=== PATIENT | male | born 1960 | race Caucasian/White ===

== ENCOUNTER 2019-03-29 18:19 | Inpatient (IN) | payer OTHER ==
[2019-03-29] MEDS ORDERED: SODIUM CHLORIDE 0.9% 1,000 ML IV STA ×2 (18:37→20:06)
--- NOTE | 2019-03-29 18:50 | ED ---
General Adult HPI - General Chief complaint: Weakness Stated complaint: Hypotension Time Seen by Provider: 03/29/19 18:37 Source: EMS Mode of arrival: EMS Limitations: no limitations - History of Present Illness Initial comments: Dictation was produced using [employer] dictation software. please excuse any grammatical, word or spelling errors. Chief Complaint: 59-year-old male brought in by EMS for altered mental status. History of Present Illness: 59-year-old male is brought in by EMS for altered mental status. EMS was allegedly called by a bystander. He was found in somebody's yard. EMS was on scene. They performed an EKG with concerns of infarction. Patient admitted to us that he is suicidal. He drank a whole bottle of mouthwash. Patient allegedly fell and hit the back of his head as well. Patient is a poor historian at this time. According to EMS patient was hypotensive. EMS transmitted EKG. Patient denies any chest pain at this time. Denies any neurologic deficits. Patient states he was trying to harm himself because he is afraid of being homeless at his age. PHYSICAL EXAM: General Impression: Alert and oriented x2/4, not in acute distress HEENT: Normocephalic atraumatic, extra-ocular movements intact, pupils equal and reactive to light bilaterally, dry mucous membranes, pupils not pinpoint, pale, Cardiovascular: Heart regular rate and rhythm, S1&S2 audible, no murmurs, rubs or gallops Chest: Lungs clear to auscultation bilaterally, no rhonchi, no wheeze, no rales Abdomen: Bowel sounds present, abdomen soft, non-tender, non-distended, no organomegaly Musculoskeletal: Pulses present and equal in all extremities, no peripheral edema Motor: no focal deficits noted Neurological: CN II-XII grossly intact, no focal motor or sensory deficits noted Skin: Intact with no visualized rashes Psych: Normal affect and mood ED course: 59-year-old male presents with altered mental status after being found down in a yard. As upon arrival shows blood pressure 73/49. Multiple EKGs were performed. No clear signs of STEMI at this time. No old EKG for comparison. EKG shows right bundle branch block. Laboratory evaluation obtained. Leukocytosis of 16.3 likely secondary to stress. Metabolic panel shows elevated renal markers, sodium 136, glucose 127- like acidosis of 4.8. Salicylates, Tylenol and serum alcohol was obtained. Alcohol 198. Negative aspirin and Tylenol. Patient's osmolalities 335. Osmole gap is - 5. No concern for toxic alcohol ingestion. Patient responds to fluids. Repeat blood pressure was obtained after 2 boluses of fluids with measurement of 111/71. Patient reevaluated at bedside. Has no complaints. Denies any chest pain at this time. Computed tomography scan of the head and C- spine was obtained showing no acute intracranial abnormalities. Chest x-ray is nonacute. Patient's lactic acidosis is likely secondary to dehydration. Patient's well-appearing at this time. He will be admitted with psychiatry, cardiology consultation. - Related Data Home Medications Medication Instructions Recorded Confirmed Cardizem(Unknown Dose) 1 tab PO DAILY 03/29/19 03/29/19 Allergies Allergy/AdvReac Type Severity Reaction Status Date / Time No Known Allergies Allergy Verified 03/29/19 19:07 Review of Systems ROS Statement: Those systems with pertinent positive or pertinent negative responses have been documented in the HPI. ROS Other: All systems not noted in ROS Statement are negative. Past Medical History Past Medical History: Hypertension History of Any Multi-Drug Resistant Organisms: None Reported Past Surgical History: Unable to Obtain Smoking Status: Current every day smoker Past Alcohol Use History: Abuse, Heavy General Exam Limitations: no limitations Course Vital Signs 03/29/19 03/29/19 03/29/19 18:39 18:57 18:58 Temperature 97.4 F L Pulse Rate 82 71 71 Respiratory 24 18 22 Rate Blood Pressure 73/49 100/60 98/67 O2 Sat by Pulse 94 L 96 90 L Oximetry 03/29/19 03/29/19 03/29/19 19:00 19:30 20:00 Temperature Pulse Rate 84 70 85 Respiratory 17 20 18 Rate Blood Pressure 80/41 93/61 98/58 O2 Sat by Pulse 91 L 92 L Oximetry 03/29/19 20:28 Temperature Pulse Rate 69 Respiratory 18 Rate Blood Pressure 111/71 O2 Sat by Pulse 95 Oximetry Medical Decision Making - Lab Data Result diagrams: 03/29/19 18:30 03/29/19 18:30 Lab Results 03/29/19 03/29/19 03/29/19 Range/Units 18:30 18:30 18:30 WBC 16.3 H (3.8-10.6) k/uL RBC 5.33 (4.30-5.90) m/uL Hgb 15.6 (13.0-17.5) gm/dL Hct 52.1 (39.0-53.0) % MCV 97.9 (80.0-100.0) fL MCH 29.3 (25.0-35.0) pg MCHC 29.9 L (31.0-37.0) g/dL RDW 15.2 (11.5-15.5) % Plt Count 229 (150-450) k/uL Neutrophils % 85 % Lymphocytes % 9 % Monocytes % 4 % Eosinophils % 1 % Basophils % 1 % Neutrophils # 13.8 H (1.3-7.7) k/uL Lymphocytes # 1.4 (1.0-4.8) k/uL Monocytes # 0.7 (0-1.0) k/uL Eosinophils # 0.1 (0-0.7) k/uL Basophils # 0.1 (0-0.2) k/uL Sodium 136 L (137-145) mmol/L Potassium 4.2 (3.5-5.1) mmol/L Chloride 100 (98-107) mmol/L Carbon Dioxide 23 (22-30) mmol/L Anion Gap 13 mmol/L BUN 21 H (9-20) mg/dL Creatinine 1.91 H (0.66-1.25) mg/dL Est GFR (CKD-EPI)AfAm 43 (>60 ml/min/1.73 sqM) Est GFR (CKD-EPI)NonAf 38 (>60 ml/min/1.73 sqM) Glucose 127 H (74-99) mg/dL Osmolality 335 H* (280-301) mosm/kg Plasma Lactic Acid Eldon 4.8 H* (0.7-2.0) mmol/L Calcium 9.0 (8.4-10.2) mg/dL Total Bilirubin 1.0 (0.2-1.3) mg/dL Conjugated Bilirubin 0.0 (0.0-0.3) mg/dL Unconjugated Bilirubin 0.7 (0.0-1.1) mg/dL Delta Bilirubin 0.3 H (0.0-0.2) mg/dL AST 32 (17-59) U/L ALT 19 L (21-72) U/L Alkaline Phosphatase 66 (38-126) U/L Troponin I (0.000-0.034) ng/mL Total Protein 5.9 L (6.3-8.2) g/dL Albumin 3.6 (3.5-5.0) g/dL Lipase 161 (23-300) U/L Salicylates 1.0 mg/dL Acetaminophen <10.0 ug/mL Serum Alcohol 198 mg/dL 03/29/19 Range/Units 18:30 WBC (3.8-10.6) k/uL RBC (4.30-5.90) m/uL Hgb (13.0-17.5) gm/dL Hct (39.0-53.0) % MCV (80.0-100.0) fL MCH (25.0-35.0) pg MCHC (31.0-37.0) g/dL RDW (11.5-15.5) % Plt Count (150-450) k/uL Neutrophils % % Lymphocytes % % Monocytes % % Eosinophils % % Basophils % % Neutrophils # (1.3-7.7) k/uL Lymphocytes # (1.0-4.8) k/uL Monocytes # (0-1.0) k/uL Eosinophils # (0-0.7) k/uL Basophils # (0-0.2) k/uL Sodium (137-145) mmol/L Potassium (3.5-5.1) mmol/L Chloride (98-107) mmol/L Carbon Dioxide (22-30) mmol/L Anion Gap mmol/L BUN (9-20) mg/dL Creatinine (0.66-1.25) mg/dL Est GFR (CKD-EPI)AfAm (>60 ml/min/1.73 sqM) Est GFR (CKD-EPI)NonAf (>60 ml/min/1.73 sqM) Glucose (74-99) mg/dL Osmolality (280-301) mosm/kg Plasma Lactic Acid Eldon (0.7-2.0) mmol/L Calcium (8.4-10.2) mg/dL Total Bilirubin (0.2-1.3) mg/dL Conjugated Bilirubin (0.0-0.3) mg/dL Unconjugated Bilirubin (0.0-1.1) mg/dL Delta Bilirubin (0.0-0.2) mg/dL AST (17-59) U/L ALT (21-72) U/L Alkaline Phosphatase (38-126) U/L Troponin I 0.020 (0.000-0.034) ng/mL Total Protein (6.3-8.2) g/dL Albumin (3.5-5.0) g/dL Lipase (23-300) U/L Salicylates mg/dL Acetaminophen ug/mL Serum Alcohol mg/dL Disposition Clinical Impression: Suicidal behavior, Chest pain, Hypotension Disposition: ADMITTED IP TO THIS HOSP Condition: Fair Referrals: None,Stated [Primary Care Provider] - 1-2 days Decision Time: 21:27
[2019-03-29 18:52] LABS: Basophils # (A) 0.1 k/uL (0-0.2); Basophils % (A) 1 %; Eosinophils # (A) 0.1 k/uL (0-0.7); Eosinophils % (A) 1 %; HCT 52.1 % (39.0-53.0); HGB 15.6 gm/dL (13.0-17.5); Lymphocytes # (A) 1.4 k/uL (1.0-4.8); Lymphocytes % (A) 9 %; MCH 29.3 pg (25.0-35.0); MCHC 29.9 g/dL (31.0-37.0); MCV 97.9 fL (80.0-100.0); Monocytes # (A) 0.7 k/uL (0-1.0); Monocytes % (A) 4 %; Neutrophils # (A) 13.8 k/uL (1.3-7.7); Neutrophils % (A) 85 %; Platelet Count 229 k/uL (150-450); RBC 5.33 m/uL (4.30-5.90); RDW 15.2 % (11.5-15.5); WBC 16.3 k/uL (3.8-10.6)
[2019-03-29 19:02] LABS: ALT 19 U/L (21-72); AST 32 U/L (17-59); Acetaminophen <10.0 ug/mL; African American GFR (CKD) 43 (>60 ml/min/1.73 sqM); Albumin 3.6 g/dL (3.5-5.0); Alkaline Phosphatase 66 U/L (38-126); Anion Gap 13 mmol/L; Bilirubin, Delta 0.3 mg/dL (0.0-0.2); Bilirubin,Unconjugated 0.7 mg/dL (0.0-1.1); Blood Urea Nitrogen 21 mg/dL (9-20); Carbon Dioxide 23 mmol/L (22-30); Chloride 100 mmol/L (98-107); Glucose 127 mg/dL (74-99); Potassium 4.2 mmol/L (3.5-5.1); Sodium 136 mmol/L (137-145); Total Protein 5.9 g/dL (6.3-8.2)
--- NOTE | 2019-03-29 19:02 | XR ---
EXAMINATION TYPE: XR chest 1V portable DATE OF EXAM: 03/29/2019 COMPARISON: NONE HISTORY: Overdose TECHNIQUE: Single frontal view of the chest is obtained. FINDINGS: There is no heart failure nor confluent pneumonic infiltrate. There is minimal atelectasis left lung base. Right lung is clear. There are no hilar masses. There are chest leads. IMPRESSION: Mild subsegmental atelectasis left lower lobe. Normal heart.
[2019-03-29 19:05] LABS: Alcohol 198 mg/dL
--- NOTE | 2019-03-29 20:24 | CT ---
EXAMINATION TYPE: CT brain jamari holder DATE OF EXAM: 03/29/2019 COMPARISON: None HISTORY: ETOH with fall CT DLP: 1299.6 mGycm Automated exposure control for dose reduction was used. TECHNIQUE: CT scan of the head and cervical spine are performed without contrast. FINDINGS: There is mild cerebral cortical atrophy. There is no mass effect nor midline shift. There is no sign of intracranial hemorrhage. The calvarium is intact. There is straightening of the cervical spine. There is degenerative spur formation anteriorly in the mid and lower cervical spine. The facet joints are intact. Skull base is intact. There is mucus reten tion cyst in the maxillary sinuses. IMPRESSION: Mild atrophy. No acute intracranial abnormality. Mild spondylotic changes in the cervical spine. No fracture.
[2019-03-29] MEDS ORDERED: ASPIRIN 81 MG PO STA (21:22)
[2019-03-29] MEDS ORDERED: NITROGLYCERIN SL TABS 0.4 MG TAB SUBLINGUAL PRN (21:22)
[2019-03-29] MEDS ORDERED: THIAMINE 100 MG/ML 2 ML VIAL IM STA (22:41)
[2019-03-29 23:21] VITALS: BMI 29.4
[2019-03-29] MEDS: THIAMINE 100 MG TAB PO SCH (23:30)
[2019-03-30] MEDS: NICOTINE 14MG/24HR PATCH TRANSDERM SCH ×2 (00:08→08:12)
[2019-03-30 02:36] LABS: Cholesterol 121 mg/dL (<200); HDL Cholesterol 54 mg/dL (40-60); LDL Cholesterol,Calculated 43 mg/dL (0-99); Triglycerides 118 mg/dL (<150)
[2019-03-30] MEDS: THIAMINE 100 MG TAB PO SCH ×2 (04:32→17:28)
[2019-03-30] MEDS: LORazepam 2 MG/ML INJ IV PRN ×4 (04:46→19:46)
[2019-03-30] MEDS ORDERED: ASPIRIN 325 MG TAB PO SCH (09:00)
[2019-03-30] MEDS: DILTIAZEM ORAL 30 MG TAB PO SCH ×3 (10:36→19:46)
[2019-03-30 11:01] LABS: Calcium 7.7 mg/dL (8.4-10.2); Potassium 3.8 mmol/L (3.5-5.1)
[2019-03-30 11:33] LABS: Basophils % (A) 0 %; Eosinophils % (A) 0 %; HCT 43.4 % (39.0-53.0); HGB 13.7 gm/dL (13.0-17.5); Hypochromasia Slight; Lymphocytes # (A) 1.1 k/uL (1.0-4.8); Lymphocytes % (A) 12 %; MCH 31.7 pg (25.0-35.0); MCHC 31.5 g/dL (31.0-37.0); MCV 100.5 fL (80.0-100.0); Macrocytosis Slight; Mean Platelet Volume 8.4; Monocytes # (A) 0.5 k/uL (0-1.0); Monocytes % (A) 5 %; Neutrophils # (A) 7.7 k/uL (1.3-7.7); Neutrophils % (A) 82 %; Platelet Count 158 k/uL (150-450); RBC 4.32 m/uL (4.30-5.90); RDW 15.1 % (11.5-15.5); WBC 9.4 k/uL (3.8-10.6)
[2019-03-30] MEDS: SODIUM CHLORIDE 0.9% 1,000 ML IV SCH (11:41)
[2019-03-30] MEDS: FAMOTIDINE 20 MG TAB PO SCH ×2 (11:41→19:46)
--- NOTE | 2019-03-30 12:30 | P.CRDCN ---
History of Present Illness History of present illness: This is Uzma Rice PA-C dictating a consult on this patient The patient was interviewed and examined by me as well as by Dr. Matamoros Case discussed with Dr. Matamoros and he agrees with the plan of care IMPRESSION / ASSESSMENT: Atrial fibrillation with controlled ventricular response Hypertension, blood pressure fairly stable ANEL Altered mental status Alcohol abuse PLAN: Start diltiazem 30 mg by mouth 3 times a day for rate control Reduce aspirin to 81 mg daily Obtain 2-D echo and Doppler study to assess cardiac structure and function Final decision regarding anticoagulation when his mental status improves HPI Patient is a 59-year-old male with a past medical history of hypertension who presented with altered mental status. He is a patient of Dr. Min but has not followed regularly in the office. Patient is a poor historian and his history was obtained from the chart. According to the ER note he was brought in by EMS after he was found in someone's yard, he drank a whole bottle of mouthwash and fell and hit his head. Upon presentation to the emergency department he was hypotensive at 73/49, pulse was 82. Chest x-ray showed mild subsegmental atelectasis. Labs were significant for high serum osmolality and elevated lactic acid. Alcohol was 198. Troponins negative 3. CT of the head and C- spine showed no acute intracranial abnormality, no fractures. EKG shows atrial fibrillation with a right bundle branch block and controlled ventricular response. Patient seen and examined resting in bed. Complaining of a productive cough and congestion with thick clear sputum. No chest pain, palpitations, shortness of breath or dizziness. He is also complaining of abdominal pain. ROS: No fevers, chills or rigors, Positive cough Positive for abdominal pain,no nausea, vomiting or diarrhea, no hematuria, dysuria, no musculoskeletal complaints, no strokes or seizures, no skin lesions. EXAMINATION: Temperature 98.5F, pulse 77 respirations 18, blood pressure 108/71, oxygen saturation 98% on 3 L nasal cannula Patient seen and examined resting comfortably in bed, in no acute distress Lungs are clear to auscultation bilaterally Heart is regular, normal S1 and S2, no murmurs noted No lower extremity edema REVIEW OF LABS, ECG & MEDICAL DATA WBC 9.4, hemoglobin 13.7, platelets 158, potassium 3.8, BUN 26, creatinine 1.58 LDL 43 Past Medical History Past Medical History: Hypertension History of Any Multi-Drug Resistant Organisms: None Reported Past Surgical History: Unable to Obtain Smoking Status: Current every day smoker Past Alcohol Use History: Abuse, Heavy Medications and Allergies Home Medications Medication Instructions Recorded Confirmed Type Diltiazem HCl [Diltiazem ER] 240 mg PO ONCE 03/30/19 03/30/19 History Allergies Allergy/AdvReac Type Severity Reaction Status Date / Time No Known Allergies Allergy Verified 03/29/19 19:07 Physical Exam Vitals: Vital Signs Temp Pulse Pulse Resp BP BP Pulse Ox 03/30/19 11:54 98.5 F 77 18 108/71 98 03/30/19 08:00 98.5 F 87 18 158/83 100 03/30/19 04:00 53 L 18 116/55 98 03/29/19 22:55 98 F 73 20 110/57 98 03/29/19 22:14 75 16 111/51 96 03/29/19 20:28 69 18 111/71 95 03/29/19 20:00 85 18 98/58 03/29/19 19:30 70 20 93/61 92 L 03/29/19 19:00 84 17 80/41 91 L 03/29/19 18:58 71 22 98/67 90 L 03/29/19 18:57 71 18 100/60 96 03/29/19 18:39 97.4 F L 82 24 73/49 94 L Intake and Output 03/29/19 03/30/19 03/30/19 22:59 06:59 14:59 Intake Total 0 Balance 0 Intake: Oral 0 Other: # Voids 0 Weight 104.326 kg 87.5 kg Results 03/30/19 02:07 03/30/19 02:07 Cardiac Enzymes 03/29/19 03/29/19 03/30/19 Range/Units 18:30 18:30 00:43 AST 32 (17-59) U/L Troponin I 0.020 0.019 (0.000-0.034) ng/mL 03/30/19 Range/Units 06:31 AST (17-59) U/L Troponin I 0.017 (0.000-0.034) ng/mL Lipids 03/30/19 Range/Units 02:07 Triglycerides 118 (<150) mg/dL Cholesterol 121 (<200) mg/dL HDL Cholesterol 54 (40-60) mg/dL CBC 03/29/19 03/30/19 Range/Units 18:30 02:07 WBC 16.3 H 9.4 (3.8-10.6) k/uL RBC 5.33 4.32 (4.30-5.90) m/uL Hgb 15.6 13.7 (13.0-17.5) gm/dL Hct 52.1 43.4 (39.0-53.0) % Plt Count 229 158 (150-450) k/uL Comprehensive Metabolic Panel 03/29/19 03/30/19 Range/Units 18:30 02:07 Sodium 136 L 134 L (137-145) mmol/L Potassium 4.2 3.8 (3.5-5.1) mmol/L Chloride 100 102 (98-107) mmol/L Carbon Dioxide 23 22 (22-30) mmol/L BUN 21 H 26 H (9-20) mg/dL Creatinine 1.91 H 1.58 H (0.66-1.25) mg/dL Glucose 127 H 147 H (74-99) mg/dL Calcium 9.0 7.7 L (8.4-10.2) mg/dL Unconjugated Bilirubin 0.7 (0.0-1.1) mg/dL AST 32 (17-59) U/L ALT 19 L (21-72) U/L Alkaline Phosphatase 66 (38-126) U/L Total Protein 5.9 L (6.3-8.2) g/dL Albumin 3.6 (3.5-5.0) g/dL Current Medications Generic Name Dose Route Start Last Admin Trade Name Freq PRN Reason Stop Dose Admin Aspirin 81 mg 03/31/19 09:00 Aspirin PO DAILY [facility] Diltiazem HCl 30 mg 03/30/19 10:15 03/30/19 10:36 Cardizem Oral PO 30 mg TID [facility] Administration Famotidine 20 mg 03/30/19 10:45 03/30/19 11:41 Pepcid PO 20 mg BID [facility] Administration Heparin Sodium (Porcine) 5,000 unit 03/30/19 16:00 Heparin SQ Q8HR [facility] Sodium Chloride 1,000 mls @ 75 mls/hr 03/30/19 10:45 03/30/19 11:41 Saline 0.9% IV 75 mls/hr .[id number] [facility] Administration Lorazepam 1 mg 03/29/19 22:41 03/30/19 11:59 Ativan IV 1 mg Q2HR PRN Administration CIWA 8 or 9 Lorazepam 1 mg 03/29/19 22:41 Ativan IV Q1HR PRN CIWA 10 to 15 Lorazepam 2 mg 03/29/19 22:41 Ativan IV 03/31/19 22:41 Q10M PRN CIWA 16 or higher Nicotine 1 patch 03/30/19 00:04 03/30/19 08:12 Habitrol 14mg/24hr Patch TRANSDERM 1 patch DAILY [facility] Administration Nitroglycerin 0.4 mg 03/29/19 21:22 Nitrostat SUBLINGUAL Q5M PRN Chest Pain Thiamine HCl 100 mg 03/29/19 17:30 03/30/19 04:32 Vitamin B-1 PO 100 mg BID-W/MEALS [facility] Administration Intake and Output 03/29/19 03/30/19 03/30/19 22:59 06:59 14:59 Intake Total 0 Balance 0 Intake: Oral 0 Other: # Voids 0 Weight 104.326 kg 87.5 kg 03/30/19 02:07 03/30/19 02:07
[2019-03-30] MEDS: HEPARIN SODIUM,PORCINE 5,000 UNIT/ML 1 ML VIAL SQ SCH ×2 (15:28→22:20)
[2019-03-30] MEDS: ACETAMINOPHEN TAB 325 MG TAB PO PRN (15:28)
--- NOTE | 2019-03-30 18:46 | ECHOF ---
Referral Reason:a fib MEASUREMENTS -------- HEIGHT: 188.0 cm WEIGHT: 87.1 kg BP: 108/71 RVIDd: 5.5 cm (< 3.3) IVSd: 1.7 cm (0.6 - 1.1) LVIDd: 4.3 cm (3.9 - 5.3) LVPWd: 1.6 cm (0.6 - 1.1) IVSs: 2.4 cm LVIDs: 2.9 cm LVPWs: 2.0 cm LA Diam: 4.1 cm (2.7 - 3.8) Ao Diam: 3.3 cm (2.0 - 3.7) AV Cusp: 1.8 cm (1.5 - 2.6) MV EXCURSION: 22.378 mm (> 18.000) MV EF SLOPE: 81 mm/s (70 - 150) EPSS: 0.5 cm RAP: 5.00 mmHg RVSP: 60.71 mmHg FINDINGS -------- Undetermined rhythm. This was a technically difficult study with suboptimal apical views. The left ventricular size is normal. There is moderate concentric left ventricular hypertrophy. O verall left ventricular systolic function is normal with, an EF between 55 - 60 %. Cannot determine LAP and Diastolic Dysfunction Grade. Atypical septal wall motion The right ventricle is severely enlarged. The left atrium was not well visualized. The left atrium is mildly dilated. The right atrium is moderately enlarged. 5.0mg OF Lumason UTLIZED: 2 OR MORE WALL SEGMENTS NOT VISUALIZED. Interatrial and interventricular septum intact. The aortic valve was not well visualized. There is no evidence of aortic regurgitation. There is no evidence of aortic stenosis. The mitral valve was not well visualized. No mitral regurgitation. Moderate to severe tricuspid regurgitation present. There is severe pulmonary hypertension. The r ight ventricular systolic pressure, as measured by Doppler, is 60.71mmHg. The pulmonic valve was not well visualized. There is no pulmonic regurgitation present. The aortic root size is normal. IVC Not well visulized. There is no pericardial effusion. CONCLUSIONS -------- 1. Undetermined rhythm. 2. This was a technically difficult study with suboptimal apical views. 3. The left ventricular size is normal. 4. There is moderate concentric left ventricular hypertrophy. 5. Overall left ventricular systolic function is normal with, an EF between 55 - 60 %. 6. Cannot determine LAP and Diastolic Dysfunction Grade. 7. Atypical septal wall motion 8. The right ventricle is severely enlarged. 9. The left atrium was not well visualized. 10. The left atrium is mildly dilated. 11. The right atrium is moderately enlarged. 12. 5.0mg OF Lumason UTLIZED: 2 OR MORE WALL SEGMENTS NOT VISUALIZED. 13. Interatrial and interventricular septum intact. 14. The aortic valve was not well visualized. 15. There is no evidence of aortic regurgitation. 16. There is no evidence of aortic stenosis. 17. The mitral valve was not well visualized. 18. No mitral regurgitation. 19. Moderate to severe tricuspid regurgitation present. 20. There is severe pulmonary hypertension. 21. The right ventricular systolic pressure, as measured by Doppler, is 60.71mmHg. 22. The pulmonic valve was not well visualized. 23. There is no pulmonic regurgitation present. 24. The aortic root size is normal. 25. IVC Not well visulized. 26. There is no pericardial effusion. SOUND PRINTER: Dariana Gudino RDCS
--- NOTE | 2019-03-31 00:35 | P.HPIM ---
History of Present Illness H&P Date: 03/30/19 Chief Complaint: Chest pain Patient is a 59-year-old male with a known history of hypertension, history alcohol abuse and nicotine addiction was brought to the hospital by EMS due to altered mental status. EMS was called by a bystander. Patient was found in somebody's CR. Patient says that he drank cold water mouthwash. Patient allegedly fell and hit the back of his head as well. Patient is a poor historian at this time. According to EMS patient was hypotensive. EMS transmitted EKG. Patient denies any chest pain at this time. Denies any neurologic deficits. Patient states he was trying to harm himself because he is afraid of being homeless at his age. No fever no chills. No nausea vomiting or diarrhea. Chest x-ray showed mild subsegmental atelectasis of the left lower lobe. CT head and cervical spine showed mild atrophy. No intracranial abnormality. Mild spondylitic changes of the cervical spine. Leukocytosis with WBC count 16.3 on admission BUN 21 and creatinine 1.91, serum alcohol 198 0.020 and 0.019 EKG showed atrial fibrillation with rapid regular rate. Review of Systems Constitutional: Patient denies any fever or chills . No generalized weakness or weight loss. Abdomen: Patient denied nausea vomiting and diarrhea and abdominal pain. Cardiovascular: Patient denies any chest pain or short of breath no palpitations. Respiratory: patient denied any cough is from production. No shortness of breath Neurologic: Patient denied any numbness or tingling headache. Musculoskeletal: Patient denies any complaints of joint swelling or deformity. Skin: Negative Psychiatric: Negative Endocrine: No heat or cold intolerance. No recent weight gain. Genitourinary: No dysuria or hematuria. All other 14 point ROS negative except the above Past Medical History Past Medical History: Hypertension History of Any Multi-Drug Resistant Organisms: None Reported Past Surgical History: Unable to Obtain Smoking Status: Current every day smoker Past Alcohol Use History: Abuse, Heavy Medications and Allergies Home Medications Medication Instructions Recorded Confirmed Type Diltiazem HCl [Diltiazem ER] 240 mg PO ONCE 03/30/19 03/30/19 History Allergies Allergy/AdvReac Type Severity Reaction Status Date / Time No Known Allergies Allergy Verified 03/29/19 19:07 Physical Exam Vitals: Vital Signs Temp Pulse Pulse Resp BP BP Pulse Ox 03/30/19 08:00 98.5 F 87 18 158/83 100 03/30/19 04:00 53 L 18 116/55 98 03/29/19 22:55 98 F 73 20 110/57 98 03/29/19 22:14 75 16 111/51 96 03/29/19 20:28 69 18 111/71 95 03/29/19 20:00 85 18 98/58 03/29/19 19:30 70 20 93/61 92 L 03/29/19 19:00 84 17 80/41 91 L 03/29/19 18:58 71 22 98/67 90 L 03/29/19 18:57 71 18 100/60 96 03/29/19 18:39 97.4 F L 82 24 73/49 94 L Intake and Output 03/29/19 03/30/19 03/30/19 22:59 06:59 14:59 Other: # Voids 0 Weight 104.326 kg 87.5 kg PHYSICAL EXAMINATION: Patient is lying in the bed comfortably, no acute distress, awake alert and oriented.. HEENT: Normocephalic. Neck is supple. Pupils reactive. Nostrils clear. Oral cavity is moist. Ears reveal no drainage. Neck reveals no JVD, carotid bruits, or thyromegaly. CHEST EXAMINATION: Trachea is central. Symmetrical expansion. Lung vaughn clear to auscultation and percussion. CARDIAC: Normal S1, S2 with no gallops. No murmurs ABDOMEN: Soft. Bowel sounds normal. No organomegaly. No abdominal bruits. Extremities: reveal no edema. No clubbing or cyanosis Neurologically awake, alert, oriented x3 with well-coordinated movements. No focal deficits noted Skin: No rash or skin lesions. Psychiatric: Coperative. Nonsuicidal Musculoskeletal: No joint swelling or deformity. Normal range of motion. Results CBC & Chem 7: 03/30/19 02:07 03/30/19 02:07 Labs: Abnormal Lab Results - Last 24 Hours (Table) 03/29/19 03/29/19 03/29/19 Range/Units 18:30 18:30 18:30 WBC 16.3 H (3.8-10.6) k/uL MCHC 29.9 L (31.0-37.0) g/dL Neutrophils # 13.8 H (1.3-7.7) k/uL Sodium 136 L (137-145) mmol/L BUN 21 H (9-20) mg/dL Creatinine 1.91 H (0.66-1.25) mg/dL Glucose 127 H (74-99) mg/dL Osmolality 335 H* (280-301) mosm/kg Plasma Lactic Acid Eldon 4.8 H* (0.7-2.0) mmol/L Delta Bilirubin 0.3 H (0.0-0.2) mg/dL ALT 19 L (21-72) U/L Total Protein 5.9 L (6.3-8.2) g/dL 03/29/19 Range/Units 21:53 WBC (3.8-10.6) k/uL MCHC (31.0-37.0) g/dL Neutrophils # (1.3-7.7) k/uL Sodium (137-145) mmol/L BUN (9-20) mg/dL Creatinine (0.66-1.25) mg/dL Glucose (74-99) mg/dL Osmolality (280-301) mosm/kg Plasma Lactic Acid Eldon 2.8 H* (0.7-2.0) mmol/L Delta Bilirubin (0.0-0.2) mg/dL ALT (21-72) U/L Total Protein (6.3-8.2) g/dL Thrombosis Risk Factor Assmnt - DVT/VTE Prophylaxis DVT/VTE Prophylaxis: Pharmacologic Prophylaxis ordered - Choose All That Apply Any of the Below Risk Factors Present?: Yes Each Factor Represents 1 point: Age 41-60 years, Obesity (BMI >25) Thrombosis Risk Factor Assessment Total Risk Factor Score: 2 Thrombosis Risk Factor Assessment Level: Low Risk Assessment and Plan Assessment: New onset atrial fibrillation with controlled ventricular response Acute alcohol intoxication Lactic acidosis likely dehydration and volume depletion. Improving now Suicide attempt with consumption of full bottle mouthwash Acute kidney injury likely prerenal Leukocytosis on admission likely reactive. Resolving now Hypertension DVT prophylaxis Plan: Currently heart rate is controlled. Continued on Cardizem by mouth. Cardiology is following. 2-D echocardiogram was ordered. Patient will be continued on IV hydration. Continue with thiamine and multivitamins. Monitor for withdrawal symptoms. Psychiatry was consulted. Constant observer. Anticoagulation as per cardiology recommendation. Monitor renal function. Continue to follow closely. Time with Patient: Greater than 30
[2019-03-31] MEDS: SODIUM CHLORIDE 0.9% 1,000 ML IV SCH ×2 (01:07→20:05)
[2019-03-31] MEDS: ACETAMINOPHEN TAB 325 MG TAB PO PRN ×2 (01:56→20:22)
[2019-03-31] MEDS: LORazepam 2 MG/ML INJ IV PRN ×6 (01:57→20:22)
[2019-03-31] MEDS: THIAMINE 100 MG TAB PO SCH ×2 (05:55→15:47)
[2019-03-31 06:51] LABS: Basophils % (A) 0 %; Eosinophils # (A) 0.2 k/uL (0-0.7); Eosinophils % (A) 3 %; HCT 37.8 % (39.0-53.0); Hypochromasia Slight; Lymphocytes # (A) 1.2 k/uL (1.0-4.8); Lymphocytes % (A) 19 %; MCH 31.9 pg (25.0-35.0); MCHC 31.8 g/dL (31.0-37.0); MCV 100.5 fL (80.0-100.0); Macrocytosis Slight; Mean Platelet Volume 6.9; Monocytes # (A) 0.3 k/uL (0-1.0); Monocytes % (A) 5 %; Neutrophils # (A) 4.6 k/uL (1.3-7.7); Neutrophils % (A) 72 %; Platelet Count 136 k/uL (150-450); RBC 3.76 m/uL (4.30-5.90); WBC 6.4 k/uL (3.8-10.6)
[2019-03-31 07:05] LABS: African American GFR (CKD) >90 (>60 ml/min/1.73 sqM); Anion Gap 4 mmol/L; Blood Urea Nitrogen 22 mg/dL (9-20); Calcium 8.1 mg/dL (8.4-10.2); Carbon Dioxide 26 mmol/L (22-30); Chloride 107 mmol/L (98-107); Glucose 102 mg/dL (74-99); Potassium 4.6 mmol/L (3.5-5.1); Sodium 137 mmol/L (137-145)
[2019-03-31] MEDS: NICOTINE 14MG/24HR PATCH TRANSDERM SCH (09:30)
[2019-03-31] MEDS: FAMOTIDINE 20 MG TAB PO SCH ×2 (09:30→20:22)
[2019-03-31] MEDS: DILTIAZEM ORAL 30 MG TAB PO SCH ×3 (09:30→20:22)
[2019-03-31] MEDS: HEPARIN SODIUM,PORCINE 5,000 UNIT/ML 1 ML VIAL SQ SCH ×2 (09:31→15:47)
[2019-03-31] MEDS: ASPIRIN 81 MG PO SCH (09:31)
--- NOTE | 2019-03-31 13:14 | XR ---
EXAMINATION TYPE: XR sacrum coccyx , 3 VIEWS DATE OF EXAM ORDERED: 03/31/2019 HISTORY: Pain. COMPARISON: None. FINDINGS: There is bony irregularity at S4-5. There is a lucency present posteriorly. I could not ex clude mildly angulated fracture is level. The remainder the sixth and coccyx appear unremarkable. IMPRESSION: I CANNOT EXCLUDE AN UNDISPLACED BUT ANGULATED FRACTURE AT THE S4-5 LEVEL. PLEASE CORRELATE CLINICALLY .
[2019-03-31] MEDS ORDERED: HYDROcodone/APAP 5-325MG 1 EACH TAB PO STA (14:39)
--- NOTE | 2019-03-31 14:53 | P.PN ---
Subjective Progress Note Date: 03/31/19 Patient is a 59-year-old male with a past medical history of hypertension who presented with altered mental status. He is a patient of Dr. Min but has not followed regularly in the office. Patient is a poor historian and his history was obtained from the chart. According to the ER note he was brought in by EMS after he was found in someone's yard, he drank a whole bottle of mouthwash and fell and hit his head. Upon presentation to the emergency department he was hypotensive at 73/49, pulse was 82. Chest x-ray showed mild subsegmental atelectasis. Labs were significant for high serum osmolality and elevated lactic acid. Alcohol was 198. Troponins negative 3. CT of the head and C- spine showed no acute intracranial abnormality, no fractures. EKG shows atrial fibrillation with a right bundle branch block and controlled ventricular response. Patient seen and examined resting in bed. Complaining of a productive cough and congestion with thick clear sputum. No chest pain, palpitations, shortness of breath or dizziness. He is also complaining of abdominal pain. 03/31: Echocardiogram reveals EF of 55-60%, severe tricuspid regurgitation, severe pulmonary hypertension. court recording monitor is atrial fibrillation running in the 80s to 90s. Hemoglobin 12.0, creatinine 0.9. TSH 0.582. Patient is seen in follow-up and for clearance to the mental health unit. Patient complains of congestion secondary to his COPD. At this time cardiac status is stable but recommend pulmonary consultation regarding COPD and wheezing. Patient is cleared for discharge to the mental health unit. Patient is also complaining of tailbone pain. Nursing updated regarding patient's concerns to contact attending. Patient has a truck safety inspector at the bedside. EXAMINATION: Gen: This is a 59-year-old male. He is sitting on the edge of the bed and appears to be comfortable. Afebrile, heart rate 90, blood pressure 134/71, pulse ox 97% on 2 L nasal cannula HEENT: Head is atraumatic, normocephalic. Pupils equal, round. Sclerae is anicteric. NECK: Supple. No JVD. No lymphadenopathy. No thyromegaly. LUNGS: Expiratory wheeze throughout. No intercostal retractions. Congested cough noted HEART: Regular rate and rhythm. No murmur. ABDOMEN: Soft. Bowel sounds are present. No masses. No tenderness. EXTREMITIES: No pedal edema. No calf tenderness. NEUROLOGICAL: Patient is awake, alert and oriented x3. Cranial nerves 2 through 12 are grossly intact. IMPRESSION / ASSESSMENT: Chronic Atrial fibrillation with controlled ventricular response Hypertension, blood pressure stable ANEL Altered mental status Alcohol abuse PLAN: Continue diltiazem 30 mg by mouth 3 times a day for rate control Reduce aspirin to 81 mg daily Nurse practitioner note has been reviewed, I agree with the documented findings and plan of care. Objective - Vital Signs Vital signs: Vital Signs Temp 98.1 F 03/31/19 08:35 Pulse 82 03/31/19 11:15 Resp 16 03/31/19 11:15 BP 115/73 03/31/19 11:15 Pulse Ox 99 03/31/19 11:15 Intake & Output 03/30/19 03/31/19 03/31/19 18:59 06:59 18:59 Intake Total 600 360 Output Total 900 275 Balance -300 -275 360 Weight 91 kg Intake: Oral 600 360 Output: Urine 900 275 Other: # Voids 1 1 1 - Labs CBC & Chem 7: 03/31/19 06:33 03/31/19 06:33 Labs: Abnormal Lab Results - Last 24 Hours (Table) 03/31/19 03/31/19 Range/Units 06:33 06:33 RBC 3.76 L (4.30-5.90) m/uL Hgb 12.0 L (13.0-17.5) gm/dL Hct 37.8 L (39.0-53.0) % MCV 100.5 H (80.0-100.0) fL Plt Count 136 L (150-450) k/uL BUN 22 H (9-20) mg/dL Glucose 102 H (74-99) mg/dL Calcium 8.1 L (8.4-10.2) mg/dL
[2019-03-31] MEDS ORDERED: IPRATROPIUM-ALBUTEROL 3 ML NEB INHALATION PRN (23:27)
--- NOTE | 2019-03-31 23:31 | P.PN ---
Subjective Progress Note Date: 03/31/19 Principal diagnosis: Chest pain A. fib with RVR Acute alcohol intoxication and suicidal ideation Patient is a 59-year-old male with a known history of hypertension, history alcohol abuse and nicotine addiction was brought to the hospital by EMS due to altered mental status. EMS was called by a bystander. Patient was found in somebody's CR. Patient says that he drank cold water mouthwash. Patient allegedly fell and hit the back of his head as well. Patient is a poor historian at this time. According to EMS patient was hypotensive. EMS transmitted EKG. Patient denies any chest pain at this time. Denies any neurologic deficits. Patient states he was trying to harm himself because he is afraid of being homeless at his age. No fever no chills. No nausea vomiting or diarrhea. Chest x-ray showed mild subsegmental atelectasis of the left lower lobe. CT head and cervical spine showed mild atrophy. No intracranial abnormality. Mild spondylitic changes of the cervical spine. Leukocytosis with WBC count 16.3 on admission BUN 21 and creatinine 1.91, serum alcohol 198 0.020 and 0.019 EKG showed atrial fibrillation with rapid regular rate. 03/31/2019 Patient denied any complaints of chest pain or shortness of breath. Still in atrial fibrillation with a rate controlled. TSH is within normal limits. 2-D echocardiogram showed normal ejection fraction. Patient was seen by cardiology and recommended to continue Cardizem. Patient may not be a candidate for anticoagulation. Currently hemodynamically stable and saturating well on room air. Patient is complaining of pain over the sacral bone. X-ray showed nondisplaced S4-S5 angulated fracture cannot be excluded. Continue pain management. Patient is medically cleared to be transferred to mental health unit. Active Medications Acetaminophen (Tylenol Tab) 650 mg PO Q6HR PRN PRN Reason: Fever and/ or Pain Last Admin: 03/31/19 20:22 Dose: 650 mg Documented by: Albuterol/Ipratropium (Duoneb 0.5 Mg-3 Mg/3 Ml Soln) 3 ml INHALATION RT-QID PRN PRN Reason: Shortness Of Breath Or Wheezing Aspirin (Aspirin) 81 mg PO DAILY [facility] Last Admin: 03/31/19 09:31 Dose: 81 mg Documented by: Diltiazem HCl (Cardizem Oral) 30 mg PO TID [facility] Last Admin: 03/31/19 20:22 Dose: 30 mg Documented by: Famotidine (Pepcid) 20 mg PO BID [facility] Last Admin: 03/31/19 20:22 Dose: 20 mg Documented by: Heparin Sodium (Porcine) (Heparin) 5,000 unit SQ Q8HR [facility] Last Admin: 03/31/19 15:47 Dose: 5,000 unit Documented by: Sodium Chloride (Saline 0.9%) 1,000 mls @ 75 mls/hr IV .[id number] [facility] Last Admin: 03/31/19 20:05 Dose: 75 mls/hr Documented by: Lorazepam (Ativan) 1 mg IV Q2HR PRN PRN Reason: CIWA 8 or 9 Last Admin: 03/31/19 17:21 Dose: 1 mg Documented by: Lorazepam (Ativan) 1 mg IV Q1HR PRN PRN Reason: CIWA 10 to 15 Last Admin: 03/31/19 20:22 Dose: 1 mg Documented by: Nicotine (Habitrol 14mg/24hr Patch) 1 patch TRANSDERM DAILY [facility] Last Admin: 03/31/19 09:30 Dose: 1 patch Documented by: Nitroglycerin (Nitrostat) 0.4 mg SUBLINGUAL Q5M PRN PRN Reason: Chest Pain Thiamine HCl (Vitamin B-1) 100 mg PO BID-W/MEALS [facility] Last Admin: 03/31/19 15:47 Dose: 100 mg Documented by: Objective - Vital Signs Vital signs: Vital Signs Temp 98.1 F 03/31/19 08:35 Pulse 82 03/31/19 11:15 Resp 16 03/31/19 11:15 BP 115/73 03/31/19 11:15 Pulse Ox 99 03/31/19 11:15 Intake & Output 03/30/19 03/31/19 03/31/19 18:59 06:59 18:59 Intake Total 600 360 Output Total 900 275 Balance -300 -275 360 Weight 91 kg Intake: Oral 600 360 Output: Urine 900 275 Other: # Voids 1 1 1 - Exam PHYSICAL EXAMINATION: Patient is lying in the bed comfortably, no acute distress, awake alert and oriented.. HEENT: Normocephalic. Neck is supple. Pupils reactive. Nostrils clear. Oral cavity is moist. Ears reveal no drainage. Neck reveals no JVD, carotid bruits, or thyromegaly. CHEST EXAMINATION: Trachea is central. Symmetrical expansion. Mild expiratory wheeze. Lung vaughn clear to auscultation and percussion. CARDIAC: Normal S1, S2 with no gallops. No murmurs ABDOMEN: Soft. Bowel sounds normal. No organomegaly. No abdominal bruits. Extremities: reveal no edema. No clubbing or cyanosis Neurologically awake, alert, oriented x3 with well-coordinated movements. No focal deficits noted Skin: No rash or skin lesions. Psychiatric: Coperative. Nonsuicidal Musculoskeletal: No joint swelling or deformity. Normal range of motion. Small bruise over the coccygeal area. Positive tenderness. - Labs CBC & Chem 7: 03/31/19 06:33 03/31/19 06:33 Labs: Abnormal Lab Results - Last 24 Hours (Table) 03/31/19 03/31/19 Range/Units 06:33 06:33 RBC 3.76 L (4.30-5.90) m/uL Hgb 12.0 L (13.0-17.5) gm/dL Hct 37.8 L (39.0-53.0) % MCV 100.5 H (80.0-100.0) fL Plt Count 136 L (150-450) k/uL BUN 22 H (9-20) mg/dL Glucose 102 H (74-99) mg/dL Calcium 8.1 L (8.4-10.2) mg/dL Assessment and Plan Assessment: New onset atrial fibrillation with controlled ventricular response. Angulated S4-S5 nondisplaced fracture cannot be excluded on x-ray Acute alcohol intoxication on admission. Lactic acidosis likely dehydration and volume depletion. Improving now Suicide attempt with consumption of full bottle mouthwash Acute kidney injury likely prerenal. Improved now Leukocytosis on admission likely reactive. Resolving now Hypertension DVT prophylaxis Plan: Currently heart rate is controlled. Continued on Cardizem by mouth. Cardiology is following. 2-D echocardiogram showed normal EF.. Patient will be continued on IV hydration. Continue with thiamine and multivitamins. Continued with pain management with Tylenol. Monitor for withdrawal symptoms. Psychiatry recommends inpatient psychiatric transfer.. Constant observer. Anticoagulation as per cardiology recommendation. Monitor renal function. Continue to follow closely. Time with Patient: Greater than 30
[2019-04-01] MEDS: HEPARIN SODIUM,PORCINE 5,000 UNIT/ML 1 ML VIAL SQ SCH ×3 (00:38→15:31)
[2019-04-01] MEDS: LORazepam 2 MG/ML INJ IV PRN ×5 (00:38→15:43)
[2019-04-01] MEDS: SODIUM CHLORIDE 0.9% 1,000 ML IV SCH (06:20)
[2019-04-01] MEDS: THIAMINE 100 MG TAB PO SCH ×2 (06:26→15:31)
[2019-04-01] MEDS: FAMOTIDINE 20 MG TAB PO SCH (08:27)
[2019-04-01] MEDS: ASPIRIN 81 MG PO SCH (08:27)
[2019-04-01] MEDS: DILTIAZEM ORAL 30 MG TAB PO SCH ×2 (08:27→15:31)
[2019-04-01] MEDS: NICOTINE 14MG/24HR PATCH TRANSDERM SCH (08:27)
[2019-04-01 08:33] VITALS: RESP 16
[2019-04-01 15:30] VITALS: BP 158/80; PULSE 88; TEMP 98.1
--- NOTE | 2019-04-08 23:08 | P.DS ---
Providers Date of admission: 03/31/19 12:30 Expected date of discharge: 04/01/19 Attending physician: Jonathan Denton Consults: 03/29/19 21:22 Consult Physician Routine Consulting Provider: Karoline Cortez Consult Reason/Comments: suicidal attempt Do you want consulting provider notified?: Yes Consult Physician Urgent Consulting Provider: Salvatore Matamoros Consult Reason/Comments: chest pain Do you want consulting provider notified?: Yes 03/31/19 10:21 Consult Physician Routine Consulting Provider: Karoline Cortez Consult Reason/Comments: Suicide attempt Do you want consulting provider notified?: Yes Primary care physician: Stated None Hospital Course: Discharge Diagnosis New onset atrial fibrillation with controlled ventricular response. pt. is not a candidate for AC Angulated S4-S5 nondisplaced fracture cannot be excluded on x-ray Acute alcohol intoxication on admission. Lactic acidosis likely dehydration and volume depletion. Improving now Suicide attempt with consumption of full bottle mouthwash Acute kidney injury likely prerenal. Improved now Leukocytosis on admission likely reactive. Resolving now Hypertension DVT prophylaxis Hospital course. Patient is a 59-year-old male with a known history of hypertension, history alcohol abuse and nicotine addiction was brought to the hospital by EMS due to altered mental status. EMS was called by a bystander. Patient was found in somebody's CR. Patient says that he drank cold water mouthwash. Patient allegedly fell and hit the back of his head as well. Patient is a poor historian at this time. According to EMS patient was hypotensive. EMS transmitted EKG. Patient denies any chest pain at this time. Denies any neurologic deficits. Patient states he was trying to harm himself because he is afraid of being homeless at his age. No fever no chills. No nausea vomiting or diarrhea. Chest x-ray showed mild subsegmental atelectasis of the left lower lobe. CT head and cervical spine showed mild atrophy. No intracranial abnormality. Mild spondylitic changes of the cervical spine. Leukocytosis with WBC count 16.3 on admission BUN 21 and creatinine 1.91, serum alcohol 198 0.020 and 0.019 EKG showed atrial fibrillation with rapid regular rate. 03/31/2019 Patient denied any complaints of chest pain or shortness of breath. Still in atrial fibrillation with a rate controlled. TSH is within normal limits. 2-D echocardiogram showed normal ejection fraction. Patient was seen by cardiology and recommended to continue Cardizem. Patient may not be a candidate for anticoagulation. Currently hemodynamically stable and saturating well on room air. Patient is complaining of pain over the sacral bone. X-ray showed nondisplaced S4-S5 angulated fracture cannot be excluded. Continue pain management. Patient is medically cleared to be transferred to mental health unit. 04/01/2019 Patient denies any new complaints today. No chest pain or shortness of breath. Patient diminutive ablation but rate is controlled. Coccygeal bone pain is improved now. Patient is able to ambulate. Otherwise medically stable to be discharged to inpatient psych unit as per psychiatric recommendations PHYSICAL EXAMINATION: Patient is lying in the bed comfortably, no acute distress, awake alert and oriented.. HEENT: Normocephalic. Neck is supple. Pupils reactive. Nostrils clear. Oral cavity is moist. Ears reveal no drainage. Neck reveals no JVD, carotid bruits, or thyromegaly. CHEST EXAMINATION: Trachea is central. Symmetrical expansion. Mild expiratory wheeze. Lung vaughn clear to auscultation and percussion. CARDIAC: Normal S1, S2 with no gallops. No murmurs ABDOMEN: Soft. Bowel sounds normal. No organomegaly. No abdominal bruits. Extremities: reveal no edema. No clubbing or cyanosis Neurologically awake, alert, oriented x3 with well-coordinated movements. No focal deficits noted Skin: No rash or skin lesions. Psychiatric: Coperative. Nonsuicidal Musculoskeletal: No joint swelling or deformity. Normal range of motion. Small bruise over the coccygeal area. Positive tenderness. Vital Signs Temp 98.1 F 03/31/19 08:35 Pulse 82 03/31/19 11:15 Resp 16 03/31/19 11:15 BP 115/73 03/31/19 11:15 Pulse Ox 99 03/31/19 11:15 Intake & Output 03/30/19 03/31/19 03/31/19 18:59 06:59 18:59 Intake Total 600 360 Output Total 900 275 Balance -300 -275 360 Weight 91 kg Intake: Oral 600 360 Output: Urine 900 275 Other: # Voids 1 1 1 Patient Condition at Discharge: Fair Plan - Discharge Summary New Discharge Prescriptions: New Aspirin 81 mg PO DAILY #30 chew Ipratropium-Albuterol Nebulize [Duoneb 0.5 mg-3 mg/3 ml Soln] 3 ml INHALATION RT-QID PRN ampul.neb PRN Reason: Shortness Of Breath Or Wheezing Discontinued Diltiazem HCl [Diltiazem ER] 240 mg PO ONCE No Action cloNIDine HCL [Catapres] 0.1 mg PO BID #60 tab Nicotine 21Mg/24Hr Patch [Habitrol] 1 patch TRANSDERM DAILY #14 patch Escitalopram [Lexapro] 10 mg PO DAILY #30 tab Diltiazem Oral [Cardizem*] 30 mg PO TID #45 tab Famotidine [Pepcid] 20 mg PO BID #60 tab Discharge Medication List Aspirin 81 mg PO DAILY #30 chew 04/01/19 [Rx] Ipratropium-Albuterol Nebulize [Duoneb 0.5 mg-3 mg/3 ml Soln] 3 ml INHALATION RT-QID PRN ampul.neb 04/01/19 [Rx] Diltiazem Oral [Cardizem*] 30 mg PO TID #45 tab 04/06/19 [Rx] Escitalopram [Lexapro] 10 mg PO DAILY #30 tab 04/06/19 [Rx] Famotidine [Pepcid] 20 mg PO BID #60 tab 04/06/19 [Rx] Nicotine 21Mg/24Hr Patch [Habitrol] 1 patch TRANSDERM DAILY #14 patch 04/06/19 [Rx] cloNIDine HCL [Catapres] 0.1 mg PO BID #60 tab 04/06/19 [Rx] Follow up Appointment(s)/Referral(s): Salvatore Matamoros MD [STAFF PHYSICIAN] - 1 Week (after discharge from [facility]) None,Stated [Primary Care Provider] - 1-2 days Discharge Disposition: TRANSFER TO PSYCH HOSP/UNIT
== END 2019-04-01 17:52 | DRG 309 ==
LOC: EC 18:19 → 3SCARD 21:24 → OBSVTOIN 03-31 12:30
PROVIDERS: ADMIT Hospitalist; ATTEND Hospitalist
DX: I48.20 Chronic atrial fibrillation, unspecified (principal); S32.10XA Unspecified fracture of sacrum, initial encounter for closed fracture; N17.9 Acute kidney failure, unspecified; E87.2 Acidosis; J98.11 Atelectasis; T49.6X2A Poisoning by otorhinolaryngological drugs and preparations, intentional self-harm, initial encounter; F17.210 Nicotine dependence, cigarettes, uncomplicated; D72.829 Elevated white blood cell count, unspecified; E86.0 Dehydration; F10.129 Alcohol abuse with intoxication, unspecified; Y90.6 Blood alcohol level of 120-199 mg/100 ml; I07.1 Rheumatic tricuspid insufficiency; I10 Essential (primary) hypertension; I27.20 Pulmonary hypertension, unspecified; I45.10 Unspecified right bundle-branch block; J44.9 Chronic obstructive pulmonary disease, unspecified; W19.XXXA Unspecified fall, initial encounter; Z79.82 Long term (current) use of aspirin; Z79.899 Other long term (current) drug therapy; Z59.0 Homelessness; R40.4 Transient alteration of awareness
CPT/HCPCS: 36415; 70450; 71045; 72125; 72220; 80048; 80053; 80061; 80320; 80329; 82248; 83520; 83605; 83690; 83930; 84443; 84484; 85025; 93306; 94640; 96360; 96361; 99285

== ENCOUNTER 2019-04-01 17:20 | Inpatient (IN) | payer MEDICAID ==
[2019-04-01] MEDS ORDERED: ZIPRASIDONE 20 MG VIAL IM PRN (18:35)
[2019-04-01] MEDS ORDERED: MAG HYDROX/AL HYDROX/SIMETH 30 ML CUP PO PRN (18:35)
[2019-04-01] MEDS ORDERED: MAGNESIUM HYDROXIDE 2,400 MG/10 ML CUP PO PRN (18:35)
[2019-04-01] MEDS ORDERED: IPRATROPIUM-ALBUTEROL 3 ML NEB INHALATION PRN (18:37)
[2019-04-01] MEDS: LORazepam 1 MG TAB PO PRN (21:19)
[2019-04-01] MEDS: ACETAMINOPHEN TAB 325 MG TAB PO PRN (21:20)
[2019-04-01] MEDS: FAMOTIDINE 20 MG TAB PO SCH (21:20)
[2019-04-02] MEDS: LORazepam 1 MG TAB PO PRN ×3 (06:19→22:03)
[2019-04-02] MEDS: THIAMINE 100 MG TAB PO SCH ×2 (08:06→18:23)
[2019-04-02] MEDS: NICOTINE 21MG/24HR PATCH TRANSDERM SCH (08:06)
[2019-04-02] MEDS: ASPIRIN 81 MG PO SCH (08:06)
[2019-04-02] MEDS: FAMOTIDINE 20 MG TAB PO SCH ×2 (08:06→21:55)
[2019-04-02] MEDS ORDERED: DILTIAZEM CD 240 MG CAP.ER.24H PO SCH (09:00)
[2019-04-02 09:08] LABS: Cholesterol 164 mg/dL (<200); HDL Cholesterol 53 mg/dL (40-60); LDL Cholesterol,Calculated 92 mg/dL (0-99); Triglycerides 97 mg/dL (<150)
[2019-04-02] MEDS: DILTIAZEM ORAL 30 MG TAB PO SCH ×4 (09:09→21:56)
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
[2019-04-02] MEDS: ESCITALOPRAM 10 MG TAB PO SCH (12:59)
[2019-04-02] MEDS: ACETAMINOPHEN TAB 325 MG TAB PO PRN ×2 (14:03→22:03)
[2019-04-02 18:02] LABS: Hemoglobin A1C 4.6 % (4.0-6.0)
[2019-04-02] MEDS: cloNIDine HCL 0.1 MG TAB PO SCH (21:55)
--- NOTE | 2019-04-02 22:19 | CONS ---
CONSULTATION REASON FOR CONSULTATION: Advice regarding alcohol withdrawal and other symptoms requested by psychiatry. HISTORY OF PRESENT ILLNESS: This 59-year-old gentleman with a past medical history of multiple medical problems including hypertension, history of nicotine and history of heavy alcohol abuse, recently admitted to medical floor with acute alcohol intoxication as well as suicidal ideation. Patient also had atrial fibrillation, rapid ventricular which was thought to be rather chronic in nature. The patient improved significantly. The patient is also being treated for withdrawal symptoms with Ativan. The patient is only slightly tremulous at this time. Patient is the patient is transferred to inpatient psych for further evaluation and treatment at this time. There is no history of fever, rigors or chills. No history of headache, loss of consciousness or seizures. No chest pain, palpitations at this time. PAST MEDICAL HISTORY: Hypertension, history atrial fibrillation, history of nicotine dependence, smoking, alcohol. MEDICATIONS: Home medications are: 1. Vitamin B1 100 mg p.o. with b.i.d. 2. DuoNeb q.i.d. p.r.n. 3. Pepcid 20 mg b.i.d. 4. Cardizem 30 mg. 5. Aspirin 81 mg daily. ALLERGIES: None. FAMILY HISTORY: No history of heart disease or strokes in the family. SOCIAL HISTORY: Patient has history of alcohol one fifth to half daily, history of smoking heavily. REVIEW OF SYSTEMS: ENT: No diminished vision. No diminished hearing. CARDIOVASCULAR system: As mentioned earlier. RESPIRATORY: As mentioned earlier. GI no nausea or vomiting. no numbness or weakness. Nervous system as mentioned earlier. ALLERGIES/IMMUNOLOGY: No asthma or hayfever. MUSCULOSKELETAL as mentioned earlier. HEMATOLOGY: No history of anemia. ENDOCRINE: No history of diabetes or hypothyroidism. CONSTITUTIONAL: As mentioned earlier. DERMATOLOGY negative. RHEUMATOLOGY: Negative. PSYCHIATRIC: As mentioned earlier. PHYSICAL EXAMINATION: Alert and oriented times three. Pulse is 86. Blood pressure 133/84. Respirations 16. Temperature 98.2, pulse ox 100 percent on room air. HEENT: Conjunctivae normal. Oral mucosa moist. NECK is no jugular venous distention. No carotid bruit. No lymph node enlargement. CARDIOVASCULAR: S1, S2 normal RESPIRATIONS: Breath sounds diminished in the bases. A few scattered rhonchi and crackles. ABDOMEN: Soft. Nontender. No mass palpable. LEGS: No edema. No swelling. NERVOUS SYSTEM: Higher functions as mentioned earlier. Moves all 4 limbs. Mild diffuse weakness and mild diffuse tremors present otherwise. SKIN: No ulcers, rashes or bleeding. JOINTS: No active arthropathy. Lymphatics: No lymph nodes palpable in the neck, axillae or groin. LAB: At this time, triglycerides normal. Other labs are not available. ASSESSMENT: 1. History of recent acute alcohol intoxication and suicidal ideation. 2. Possible early delirium tremens. 3. Atrial fibrillation with rapid ventricular rate history. 4. History of hypertension. 5. History of nicotine dependence. 6. History of ETOH. RECOMMENDATIONS AND DISCUSSION: In this 59-year-old gentleman presented with multiple medical issues, at this time, I recommend to continue current medications, management and symptomatic treatment. Otherwise, I recommend also to follow the patient closely with the CIWA protocol just in case of any alcohol withdrawal. Otherwise, Ativan p.r.n. may be used. Other than that, multivitamins supplementation. I would also recommend monitor blood pressure closely. Small dose of clonidine is also being added to the regimen. Otherwise recommend close followup with primary physician in the outpatient setting. We will follow the patient closely with you. Thank you for letting us participate in the care of this patient. MMODL / IJN: [id number] / RAHUL
[2019-04-03] MEDS: MULTIVITAMINS, THERA 1 EACH TAB PO SCH (09:05)
[2019-04-03] MEDS: NICOTINE 21MG/24HR PATCH TRANSDERM SCH (09:05)
[2019-04-03] MEDS: ESCITALOPRAM 10 MG TAB PO SCH (09:05)
[2019-04-03] MEDS: FOLIC ACID 1 MG TAB PO SCH (09:05)
[2019-04-03] MEDS: ASPIRIN 81 MG PO SCH (09:05)
[2019-04-03] MEDS: FAMOTIDINE 20 MG TAB PO SCH ×2 (09:05→21:24)
[2019-04-03] MEDS: cloNIDine HCL 0.1 MG TAB PO SCH ×2 (09:05→21:24)
[2019-04-03] MEDS: THIAMINE 100 MG TAB PO SCH ×2 (09:06→16:43)
[2019-04-03] MEDS: DILTIAZEM ORAL 30 MG TAB PO SCH ×3 (09:06→21:24)
--- NOTE | 2019-04-03 09:33 | P.PN ---
Progress Note - Text Interval history: The patient is found in the hallway he follows me to an interview room. He reports his mood is lousy. He states that somehow his wallet and cell phone were lost in transit from the medical floor to the mental health unit. He states that those items were in his coat pockets and once he received his coat appear they were gone. He is distressed that he has no ID. We discussed that hospital staff would make every effort to try to finals belongings if they were in the hospital. We reviewed his psychotropic medicat ion he is reporting no side effects so far he has no questions or concerns about his medication. He reports feeling overwhelmed with some hopeless thinking. He states he did call the number for inpatient chemical dependency treatment. He reports he did not sleep well last night staff report he slept 6 hours. He has been eating. CIWA score reviewed he did use Ativan this morning. Mental status exam: The patient is alert he has a disheveled appearance hygiene is adequate. He reports a sad hopeless overwhelmed mood affect is congruent. He reports continued suicidal thoughts with no acute intent or plan of acting on those. He reports no thoughts of harming others. He reports no auditory or visual hallucinations or specific delusions. There is no observed evidence of psychosis. He demonstrates no verbal or physical aggressiveness. There is no observed tremor. Insight and judgment limited. He remains oriented to person place and date. Plan: The patient will continue on the Lexapro as written and Ativan as needed. He will be encouraged to participate in groups. We will monitor him for safety. Vital signs reviewed. We will await input regarding inpatient chemical depend ency treatment
[2019-04-03] MEDS: ACETAMINOPHEN TAB 325 MG TAB PO PRN ×2 (12:49→22:26)
[2019-04-03] MEDS: LORazepam 1 MG TAB PO PRN ×3 (12:50→21:26)
--- NOTE | 2019-04-04 09:05 | P.PN ---
Progress Note - Text Interval history: The patient is found in the hallway he follows me to an interview room. He indicates his mood is still down. He is happy that his belongings were found and they were in his coat the whole time. He states he's been attending groups. Staff report he slept 7 hours last evening. Appetite is stable. Vital signs are within normal limits he was score 0. He has been compliant with his medication he has no questions or concerns regarding the Lexapro. He has received a placement date for [facility] for Tuesday. He expresses some concern he may not be ready for discharge at that time and we discussed evaluating him daily prior to making that decision. Mental status exam: The patient is alert he is dressed in his own clothing he is mobile with a wheelchair. Eye contact is appropriate. Speech is fluent spontaneous nonpressured. He endorses a mood that is up and down. He states he'll have some intermittent suicidal thoughts but feels safe in the hospital. He reports no homicidal ideation intent or plan. He reports no auditory or visual hallucinations or specific delusions. He demonstrates no observed evidence of psychosis. He demonstrates no tangential thinking loose associations or flight of ideas. He demonstrates no verbal or physical aggressiveness or any involuntary repetitive movements. He is oriented to person place and date. Affect is brighter. Plan: The patient will continue on the Lexapro is written. We will continue to monitor for any alcohol withdrawal symptoms. We will continue to assess him for his acute safety risk. We will determine if he is appropriate for placement [facility] on Tuesday. He is encouraged to continue participating in the milieu.
[2019-04-04] MEDS: NICOTINE 21MG/24HR PATCH TRANSDERM SCH (09:08)
[2019-04-04] MEDS: THIAMINE 100 MG TAB PO SCH ×2 (09:08→16:17)
[2019-04-04] MEDS: ASPIRIN 81 MG PO SCH (09:09)
[2019-04-04] MEDS: cloNIDine HCL 0.1 MG TAB PO SCH ×2 (09:09→21:19)
[2019-04-04] MEDS: DILTIAZEM ORAL 30 MG TAB PO SCH ×3 (09:09→21:19)
[2019-04-04] MEDS: FAMOTIDINE 20 MG TAB PO SCH ×2 (09:10→21:19)
[2019-04-04] MEDS: ESCITALOPRAM 10 MG TAB PO SCH (09:10)
[2019-04-04] MEDS: MULTIVITAMINS, THERA 1 EACH TAB PO SCH (12:18)
[2019-04-04] MEDS: FOLIC ACID 1 MG TAB PO SCH (12:18)
[2019-04-04] MEDS: ACETAMINOPHEN TAB 325 MG TAB PO PRN (12:20)
[2019-04-04] MEDS: LORazepam 1 MG TAB PO PRN (21:19)
[2019-04-05] MEDS: ACETAMINOPHEN TAB 325 MG TAB PO PRN ×3 (00:11→23:00)
[2019-04-05] MEDS: ASPIRIN 81 MG PO SCH (08:53)
[2019-04-05] MEDS: THIAMINE 100 MG TAB PO SCH ×2 (08:53→16:54)
[2019-04-05] MEDS: cloNIDine HCL 0.1 MG TAB PO SCH ×2 (08:53→21:28)
[2019-04-05] MEDS: NICOTINE 21MG/24HR PATCH TRANSDERM SCH (08:53)
[2019-04-05] MEDS: FAMOTIDINE 20 MG TAB PO SCH ×2 (08:54→21:28)
[2019-04-05] MEDS: DILTIAZEM ORAL 30 MG TAB PO SCH ×4 (08:54→21:28)
[2019-04-05] MEDS: ESCITALOPRAM 10 MG TAB PO SCH (08:54)
--- NOTE | 2019-04-05 10:45 | P.PN ---
Progress Note - Text Interval history: The patient is found in group he follows me to an interview room. He states that he feels better. He is concerned about some dizziness experience last evening. Vital signs were reviewed. He continues to use the wheelchair for mobility but did try using the walker yesterday. We reviewed his psychotropic medication and he is reporting no side effects he has no questions regarding his medication. He appreciates the support from staff and the benefit of the groups. He reports feeling safe in the hospital. We discussed his progress during treatment team meeting. The patient is slated to start with [facility] tomorrow we are discussing transportation options. Mental status exam: The patient is alert he states his mood is slowly getting better. Affect is constricted. He is cooperative and directable. He reports he feels safe in the hospital. He reports no thoughts of harming others he endorses no auditory or visual hallucinations or specific delusions. He demonstrates no tangential thinking loose associations or flight of ideas. He does not appear hypomanic or manic. He is mildly disheveled hygiene is adequate. Eye contact is appropriate. Speech is fluent spontaneous nonpressured. He is oriented to person place and date. He demonstrates no verbal or physical aggressiveness. He demonstrates no involuntary repetitive movements. Plan: The patient is demonstrating some clinical improvement and he is participating in the milieu. He is agreeable to inpatient chemical dependency treatment. He would like to have him transferred directly from here to that facility. We are discussing his transportation options. We will monitor him for safety and encourage continued participation in the milieu. Vital signs reviewed. He is encouraged to maintain appropriate hydration.
[2019-04-05] MEDS: MULTIVITAMINS, THERA 1 EACH TAB PO SCH (13:14)
[2019-04-05] MEDS: FOLIC ACID 1 MG TAB PO SCH (13:14)
[2019-04-06 01:30] VITALS: RESP 15; TEMP 98.9
[2019-04-06] MEDS: NICOTINE 21MG/24HR PATCH TRANSDERM SCH (08:51)
[2019-04-06] MEDS: FAMOTIDINE 20 MG TAB PO SCH (08:52)
[2019-04-06] MEDS: ASPIRIN 81 MG PO SCH (08:52)
[2019-04-06] MEDS: ESCITALOPRAM 10 MG TAB PO SCH (08:53)
[2019-04-06] MEDS: THIAMINE 100 MG TAB PO SCH (08:53)
[2019-04-06] MEDS: DILTIAZEM ORAL 30 MG TAB PO SCH (08:53)
[2019-04-06] MEDS: cloNIDine HCL 0.1 MG TAB PO SCH (08:53)
--- NOTE | 2019-04-06 09:35 | P.DS ---
Providers Date of admission: 04/01/19 18:33 Expected date of discharge: 04/06/19 Attending physician: Eduin Ramirez Consults: 04/01/19 18:35 Consult Physician Routine Consulting Provider: Jonathan Denton Consult Reason/Comments: MEDICAL MANAGEMENT Do you want consulting provider notified?: Yes, Notify in am Primary care physician: Stated None - Discharge Diagnosis(es) (1) Major depressive disorder, recurrent severe without psychotic features Current Visit: Yes Status: Acute Priority: High (2) Alcohol use disorder, severe, dependence Current Visit: Yes Status: Acute Priority: High Hospital Course: Brief summary of admission note: This patient is a 59-year-old male who was admitted to the mental health unit for acute suicidal ideation. The patient states immediately prior to this admission the patient attempted suicide by consuming a bottle of mouthwash. He reported feeling hopeless and overwhelmed. He reported being tearful on a regular basis appetite was decreased he reported weight loss sleep has been poor. Energy level has been poor. He had become homeless as of 7 days ago. He suffered the loss of a close friend whom he had been staying with for several years. His symptoms are confounded by his long history of alcohol use disorder. He states he's been consuming over a fifth of liquor a day. For full details please refer to my psychiatric evaluation dated 04/02/2019. Summary of hospital course: The patient was admitted to the mental health unit voluntarily. We reviewed his presenting symptoms and treatment options. His vitals were followed closely he was on the CIWA protocol. Ativan was provided as needed for any alcohol withdrawal symptoms. We reviewed his mood symptoms and decided to prescribe Lexapro 10 mg daily. He tolerated that medication well without any report of side effect. He was seen by internal medicine for routine history and physical exam. Apparently he experienced an episode of atrial fibr illation he was stabilized on the medical floor prior to being transferred to this unit. He was seen by social work to complete a psychosocial assessment and for discharge planning purposes. Early on the patient indicated he wanted to attend inpatient chemical dependency treatment and arrangements were made for him to attend [facility] today. The patient identified no one available as support to participate in a support meeting. The patient states that his suicidal ideation has completely resolved. He demonstrates future oriented thinking. Mental status exam: The patient is alert he is dressed in his own clothing hygiene grooming are good. He is ambulatory no longer using the wheelchair. Eye contact is good speech is fluent and spontaneous nonpressured. He reports his mood is good, affect is congruent and euthymic. He reports no suicidal ideation intent or plan. He reports no homicidal ideation intent or plan. He endorses no auditory or visual hallucinations or any specific delusions there is no observed evidence of psychosis. He demonstrates no tangential thinking loose associations or flight of ideas. He does not appear to be hypomanic or manic. He demonstrates no verbal or physical aggressiveness. He demonstrates no involuntary repetitive movements. Insight and judgment are grossly intact, he is oriented to person place and date. He demonstrates future oriented thinking in describing plans of attending [facility] for rehab and afterwards residing in a three-quarter home and following up with [facility]. Impressions 1. Major depressive disorder recurrent severe without psychosis, alcohol use disorder severe Plan: The patient will be discharged mental health unit today and he will be directly transferred to [facility] for inpatient chemical dependency treatment. He will continue on his Lexapro 10 mg daily. He is interested in using the vivitrol injection but wants to wait until he completes rehab first. At this time there is no imminent safety risk is appropriate for transition to [facility] for chemical dependency treatment. He is instructed to return to the hospital any acute safety concerns. He will follow up with a primary care physician upon discharge from [facility]. Patient Condition at Discharge: Stable Plan - Discharge Summary Discharge Rx Participant: No New Discharge Prescriptions: New cloNIDine HCL [Catapres] 0.1 mg PO BID #60 tab Nicotine 21Mg/24Hr Patch [Habitrol] 1 patch TRANSDERM DAILY #14 patch Escitalopram [Lexapro] 10 mg PO DAILY #30 tab Continue Aspirin 81 mg PO DAILY #30 chew Ipratropium-Albuterol Nebulize [Duoneb 0.5 mg-3 mg/3 ml Soln] 3 ml INHALATION RT-QID PRN ampul.neb PRN Reason: Shortness Of Breath Or Wheezing Diltiazem Oral [Cardizem*] 30 mg PO TID #45 tab Famotidine [Pepcid] 20 mg PO BID #60 tab Discontinued Thiamine [Vitamin B-1] 100 mg PO BID-W/MEALS tab Discharge Medication List Aspirin 81 mg PO DAILY #30 chew 10/27/19 [Rx] Ipratropium-Albuterol Nebulize [Duoneb 0.5 mg-3 mg/3 ml Soln] 3 ml INHALATION RT-QID PRN ampul.neb 04/01/19 [Rx] Diltiazem Oral [Cardizem*] 30 mg PO TID #45 tab 04/06/19 [Rx] Escitalopram [Lexapro] 10 mg PO DAILY #30 tab 04/06/19 [Rx] Famotidine [Pepcid] 20 mg PO BID #60 tab 04/06/19 [Rx] Nicotine 21Mg/24Hr Patch [Habitrol] 1 patch TRANSDERM DAILY #14 patch 04/06/19 [Rx] cloNIDine HCL [Catapres] 0.1 mg PO BID #60 tab 04/06/19 [Rx] Follow up Appointment(s[facility]Ref[facility] - 04/06/19 12:00 pm (Intake) Patient Instructions/Handouts: Depression (DC), Hypotension (DC), Suicide Prevention (DC) Activity/Diet/Wound Care/Special Instructions: Activity and diet as tolerated. No guns or weapons in the home. Refrain from alcohol and street drugs not prescribed by your physician. Take all medications as prescribed, and attend all follow up appointments as scheduled. If in need of medication refills, please go to your primary care physician, or to your out patient psychiatric provider. If in crisis, please call , or go the nearest ER for an evaluation.
[2019-04-06 10:05] VITALS: BP 125/77; PULSE 92
== END 2019-04-06 10:51 | disposition home or self-care (01) | DRG 885 ==
LOC: 3MHU 18:33
PROVIDERS: ADMIT Psychiatry & Neurology Psychiatry; ATTEND Psychiatry & Neurology Psychiatry
DX: F33.2 Major depressive disorder, recurrent severe without psychotic features (principal); R45.851 Suicidal ideations; I48.20 Chronic atrial fibrillation, unspecified; E03.9 Hypothyroidism, unspecified; I10 Essential (primary) hypertension; F10.20 Alcohol dependence, uncomplicated; Z59.0 Homelessness; Z87.891 Personal history of nicotine dependence; Z81.8 Family history of other mental and behavioral disorders
CPT/HCPCS: 80061; 83036; 94640

== ENCOUNTER 2020-10-04 12:36 | Inpatient (IN) | payer OTHER ==
[2020-10-04] MEDS ORDERED: SODIUM CHLORIDE 0.9% 1,000 ML IV STA ×2 (13:32)
--- NOTE | 2020-10-04 14:12 | ED ---
Alcohol HPI - General Chief Complaint: Psychiatric Symptoms Stated Complaint: EPS eval Time Seen by Provider: 10/04/20 12:38 Source: patient, RN notes reviewed, old records reviewed Mode of arrival: wheelchair Limitations: no limitations - History of Present Illness Initial Comments: This is a 60-year-old male for severe alcohol intoxication poor strain secondary to alcohol intoxication although certainly is depressed and suicidal. History obtained from patient patient's prior charting MD Complaint: alcohol intoxication Last Drink: unknown -: hour(s) Previous Visits for Alcohol Intoxication?: Yes Recent Trauma: No Treatments Prior to Arrival: none Chronic Alcohol Use: Yes - Related Data Home Medications Medication Instructions Recorded Confirmed No Known Home Medications 10/04/20 10/04/20 Allergies Allergy/AdvReac Type Severity Reaction Status Date / Time No Known Allergies Allergy Verified 10/04/20 12:41 Review of Systems ROS Statement: Those systems with pertinent positive or pertinent negative responses have been documented in the HPI. ROS Other: All systems not noted in ROS Statement are negative. Past Medical History Past Medical History: Atrial Fibrillation, COPD, Hypertension History of Any Multi-Drug Resistant Organisms: None Reported Past Surgical History: Unable to Obtain Past Anesthesia/Blood Transfusion Reactions: No Reported Reaction Past Psychological History: Depression Smoking Status: Current every day smoker Past Alcohol Use History: Abuse, Daily, Heavy Past Drug Use History: Marijuana General Exam Limitations: no limitations General appearance: alert, appears intoxicated, anxious Head exam: Present: atraumatic, normocephalic, normal inspection Eye exam: Present: normal appearance, PERRL, EOMI. Absent: scleral icterus, conjunctival injection, periorbital swelling ENT exam: Present: normal exam, mucous membranes moist Neck exam: Present: normal inspection. Absent: tenderness, meningismus, lymphadenopathy Respiratory exam: Present: normal lung sounds bilaterally. Absent: respiratory distress, wheezes, rales, rhonchi, stridor Cardiovascular Exam: Present: regular rate, normal rhythm, normal heart sounds. Absent: systolic murmur, diastolic murmur, rubs, gallop, clicks GI/Abdominal exam: Present: soft, normal bowel sounds. Absent: distended, tenderness, guarding, rebound, rigid Extremities exam: Present: normal inspection, full ROM, normal capillary refill. Absent: tenderness, pedal edema, joint swelling, calf tenderness Back exam: Present: normal inspection Neurological exam: Present: alert, oriented X3, CN II-XII intact Psychiatric exam: Present: normal affect, normal mood Skin exam: Present: warm, dry, intact, normal color. Absent: rash Course Vital Signs 10/04/20 12:37 Temperature 98.3 F Pulse Rate 104 H Respiratory 20 Rate Blood Pressure 159/91 O2 Sat by Pulse 92 L Oximetry - Reevaluation(s) Reevaluation #1: 10/04/20 16:14 Medical records reviewed Reevaluation #2: 10/04/20 16:14 Patient remains mildly hypoxic but is severely intoxicated, improved with breathing treatments. Chest x-ray shows pneumonia - Consultations Consultation #1: Spoke with sound who will admit the patient Medical Decision Making - Medical Decision Making 60 female does have COPD exacerbation but mainly here for depression today. Patient has severe depression suicidal ideation severe alcohol toxicity and intoxication - Lab Data Result diagrams: 10/04/20 14:01 10/04/20 14:01 Lab Results 10/04/20 10/04/20 Range/Units 14:01 14:01 WBC 7.0 (3.8-10.6) k/uL RBC 4.68 (4.30-5.90) m/uL Hgb 14.5 (13.0-17.5) gm/dL Hct 44.6 (39.0-53.0) % MCV 95.1 (80.0-100.0) fL MCH 31.0 (25.0-35.0) pg MCHC 32.6 (31.0-37.0) g/dL RDW 15.3 (11.5-15.5) % Plt Count 125 L (150-450) k/uL MPV 7.9 Neutrophils % 85 % Lymphocytes % 9 % Monocytes % 4 % Eosinophils % 1 % Basophils % 1 % Neutrophils # 6.0 (1.3-7.7) k/uL Lymphocytes # 0.6 L (1.0-4.8) k/uL Monocytes # 0.3 (0-1.0) k/uL Eosinophils # 0.1 (0-0.7) k/uL Basophils # 0.0 (0-0.2) k/uL Sodium 137 (137-145) mmol/L Potassium 5.1 (3.5-5.1) mmol/L Chloride 96 L (98-107) mmol/L Carbon Dioxide 28 (22-30) mmol/L Anion Gap 13 mmol/L BUN 32 H (9-20) mg/dL Creatinine 1.01 (0.66-1.25) mg/dL Est GFR (CKD-EPI)AfAm >90 (>60 ml/min/1.73 sqM) Est GFR (CKD-EPI)NonAf 81 (>60 ml/min/1.73 sqM) Glucose 102 H (74-99) mg/dL Calcium 8.8 (8.4-10.2) mg/dL Phosphorus 2.8 (2.5-4.5) mg/dL Magnesium 1.4 L (1.6-2.3) mg/dL Lipase 300 (23-300) U/L Salicylates <1.0 mg/dL Acetaminophen <10.0 ug/mL Serum Alcohol 393 H* mg/dL - Radiology Data Radiology results: report reviewed (Chest x-ray shows likely pneumonia), image reviewed Disposition Clinical Impression: Suicidal behavior, Alcohol use disorder, severe, dependence, Depression, COPD (chronic obstructive pulmonary disease) Disposition: ADMITTED IP TO THIS HOSP Condition: Fair Is patient prescribed a controlled substance at d/c from ED?: No Referrals: None,Stated [Primary Care Provider] - 1-2 days
[2020-10-04 14:16] LABS: Basophils % (A) 1 %; Eosinophils # (A) 0.1 k/uL (0-0.7); Eosinophils % (A) 1 %; HCT 44.6 % (39.0-53.0); HGB 14.5 gm/dL (13.0-17.5); Lymphocytes # (A) 0.6 k/uL (1.0-4.8); Lymphocytes % (A) 9 %; MCHC 32.6 g/dL (31.0-37.0); MCV 95.1 fL (80.0-100.0); Mean Platelet Volume 7.9; Monocytes # (A) 0.3 k/uL (0-1.0); Monocytes % (A) 4 %; Neutrophils % (A) 85 %; Platelet Count 125 k/uL (150-450); RBC 4.68 m/uL (4.30-5.90); RDW 15.3 % (11.5-15.5)
[2020-10-04 14:20] LABS: Acetaminophen <10.0 ug/mL; African American GFR (CKD) >90 (>60 ml/min/1.73 sqM); Anion Gap 13 mmol/L; Blood Urea Nitrogen 32 mg/dL (9-20); Calcium 8.8 mg/dL (8.4-10.2); Carbon Dioxide 28 mmol/L (22-30); Chloride 96 mmol/L (98-107); Glucose 102 mg/dL (74-99); Lipase 300 U/L (23-300); Magnesium 1.4 mg/dL (1.6-2.3); Non-African American GFR(CKD) 81 (>60 ml/min/1.73 sqM); Phosphorus 2.8 mg/dL (2.5-4.5); Potassium 5.1 mmol/L (3.5-5.1); Salicylate <1.0 mg/dL; Sodium 137 mmol/L (137-145)
[2020-10-04 14:31] LABS: Alcohol 393 mg/dL
--- NOTE | 2020-10-04 15:23 | XR ---
EXAMINATION TYPE: XR chest 2V DATE OF EXAM: 10/04/2020 COMPARISON: 03/29/2019 HISTORY: Overdose TECHNIQUE: FINDINGS: There is some mild airspace infiltrate in the right lower lobe. There is no heart failure. Heart is top normal in size. There are no hilar masses. There is no pleural effusion. IMPRESSION: There is some new mild infiltrate right lower lobe compared to old exam. No heart failure . Borderline cardiomegaly.
[2020-10-04] MEDS: MAGNESIUM SULFATE-D5W PMX 1 GM in DEXTROSE/WATER 1 100ML.BAG IVPB SCH ×4 (15:36→23:12)
[2020-10-04] MEDS ORDERED: methylPREDNISolone SOD SUCCI 125 MG/2 ML VIAL IV STA (16:11)
[2020-10-04] MEDS ORDERED: IPRATROPIUM-ALBUTEROL 3 ML NEB INHALATION STA (16:11)
[2020-10-04] MEDS ORDERED: THIAMINE 100 MG/ML 2 ML VIAL IM STA (16:12)
[2020-10-04] MEDS ORDERED: LORazepam 2 MG/ML INJ IV PRN (16:12)
[2020-10-04] MEDS: SODIUM CHLORIDE 0.9% 1,000 ML IV SCH (16:22)
--- NOTE | 2020-10-04 16:55 | P.HPIM ---
History of Present Illness H&P Date: 10/04/20 Chief Complaint: Suicidal thoughts and alcohol intoxication This is 60-year-old white male who reported to the emergency room because of alcohol intoxication and suicidal thoughts. Patient states that he drinks alcohol daily. He has been intoxicated. He states that he has been depressed. His mother recently . He states that he will likely commit suicide once he goes home. He denies chest pain, no abdominal pain, no nausea or vomiting. No dizziness no loss of consciousness. Review of Systems 10 systems reviewed, pertinent positive and negative findings as in HPI. No chest pain no abdominal pain. Past Medical History Past Medical History: Atrial Fibrillation, COPD, Hypertension History of Any Multi-Drug Resistant Organisms: None Reported Past Surgical History: Unable to Obtain Past Anesthesia/Blood Transfusion Reactions: No Reported Reaction Past Psychological History: Depression Smoking Status: Current every day smoker Past Alcohol Use History: Abuse, Daily, Heavy Past Drug Use History: Marijuana Medications and Allergies Home Medications Medication Instructions Recorded Confirmed Type No Known Home Medications 10/04/20 10/04/20 History Allergies Allergy/AdvReac Type Severity Reaction Status Date / Time No Known Allergies Allergy Verified 10/04/20 12:41 Physical Exam Vitals: Vital Signs Temp Pulse Resp BP Pulse Ox 10/04/20 16:45 92 18 147/76 95 10/04/20 16:35 90 10/04/20 16:24 98 10/04/20 12:37 98.3 F 104 H 20 159/91 92 L Intake and Output 10/04/20 10/04/20 10/04/20 06:59 14:59 22:59 Other: Weight 81.647 kg Constitutional: No acute distress, conversant, pleasant Eyes: Anicteric sclerae ENMT: NC/AT Neck:Supple, FROM, no masses Lungs: Clear to auscultation, Clear to percussion, Normal respiratory effort, no accessory muscle use Cardiovascular: Heart regular in rate and rhythm, No murmurs, gallops, or rubs no peripheral edema Abdominal: Soft Nontender, nom distended, no guarding, no rebound or rigidity, Normoactive bowel sounds No hepatomegaly, No splenomegaly, No palpable mass No abdominal wall hernia noted Skin: Normal temperature Extremities:No digital cyanosis No clubbing Psychiatric: Alert and oriented to person, place and time,depressed Neuro: Muscles Strength 5/5 in all 4 extremities, Sensation to light touch grossly present throughout, Cranial nerves II-XII grossly intact. No focal sensory deficits Results CBC & Chem 7: 10/04/20 14:01 10/04/20 14: Labs: Abnormal Lab Results - Last 24 Hours (Table) 10/04/20 10/04/20 Range/Units 14: 14:01 Plt Count 125 L (150-450) k/uL Lymphocytes # 0.6 L (1.0-4.8) k/uL Chloride 96 L (98-107) mmol/L BUN 32 H (9-20) mg/dL Glucose 102 H (74-99) mg/dL Magnesium 1.4 L (1.6-2.3) mg/dL Serum Alcohol 393 H* mg/dL Assessment and Plan Plan: 1. Alcohol intoxication/dependence without evidence of withdrawal: Serum alcohol 393, supportive care, multivitamins thiamine and folate. Monitor for signs of withdrawal. 2. Suicidal thoughts: Place on suicide precautions, psychiatry consultation. 3. Thrombocytopenia likely associated with alcohol abuse: Platelets 125, monitor. 4. Hypomagnesemia: Magnesium 1.4, replace. 5. Depression: Consult psychiatry [place] 6. COPD without exacerbation: Oxygen and bronchodilators as indicated Disposition: Needs inpatient psychiatry once medically stable.
[2020-10-04] MEDS: LORazepam 2 MG/ML INJ IV PRN ×2 (17:18→23:21)
[2020-10-04 18:22] LABS: C Reactive Protein 8.1 mg/dL (<1.0)
[2020-10-04] MEDS: THIAMINE 100 MG TAB PO SCH ×2 (19:06)
[2020-10-04] MEDS: methylPREDNISolone SOD SUCCI 125 MG/2 ML VIAL IV SCH (19:36)
[2020-10-04] MEDS: IPRATROPIUM-ALBUTEROL 3 ML NEB INHALATION SCH (19:51)
[2020-10-04] MEDS: FOLIC ACID 1 MG TAB PO SCH (19:52)
[2020-10-04] MEDS: MULTIVITAMINS, THERA 1 EACH TAB PO SCH (19:52)
[2020-10-04] MEDS: NICOTINE 21MG/24HR PATCH TRANSDERM SCH (19:53)
[2020-10-05] MEDS: methylPREDNISolone SOD SUCCI 125 MG/2 ML VIAL IV SCH ×5 (02:15→23:28)
[2020-10-05] MEDS: SODIUM CHLORIDE 0.9% 1,000 ML IV SCH ×3 (02:16→21:28)
[2020-10-05] MEDS: LORazepam 2 MG/ML INJ IV PRN ×8 (02:43→23:28)
[2020-10-05 05:25] LABS: Appearance,Urine Cloudy (Clear); Bacteria,Urine Rare /hpf; Bilirubin,Urine Negative (Negative); Blood,Urine Trace (Negative); Color,Urine Light Yellow; Glucose,Urine (UA) Negative (Negative); Hyaline Casts,Urine 3 /lpf (0-2); Ketones,Urine Negative (Negative); Leukocyte Esterase,Urine Negative (Negative); Mucus,Urine Rare /hpf; Nitrite,Urine Negative (Negative); PH, Urine 5.5 (5.0-8.0); Protein,Urine 1+ (Negative); RBC,Urine <1 /hpf (0-5); Specific Gravity,Urine 1.011 (1.001-1.035); Urobilinogen,Urine <2.0 mg/dL (<2.0); WBC,Urine 1 /hpf (0-5)
[2020-10-05 05:29] LABS: Amphetamine Screen,Urine Not Detected (NotDetected); Barbiturate Screen,Urine Not Detected (NotDetected); Benzodiazepines Screen,Urine Detected (NotDetected); Cocaine Screen,Urine Not Detected (NotDetected); Methadone Screen, Urine Not Detected (NotDetected); Opiate Screen,Urine Not Detected (NotDetected); Oxycodone Screen, Urine Not Detected (NotDetected); Phencyclidine Screen,Urine Not Detected (NotDetected); Tricyclic Antidepressant,Urine Not Detected (NotDetected); Urn Cannabinoid Scrn Detected (NotDetected)
[2020-10-05] MEDS: IPRATROPIUM-ALBUTEROL 3 ML NEB INHALATION SCH ×4 (07:00→20:15)
[2020-10-05] MEDS: THIAMINE 100 MG TAB PO SCH ×3 (08:10→18:28)
[2020-10-05 09:38] LABS: HCT 40.6 % (39.6-50.0); HGB 12.9 g/dL (13.0-17.0); MCH 30.3 pg (27.0-32.0); MCHC 31.8 g/dL (32.0-37.0); MCV 95.3 fL (80.0-97.0); Mean Platelet Volume 10.9 fL (9.5-12.2); Platelet Count 118 X 10*3/uL (140-440); RBC 4.26 X 10*6/uL (4.40-5.60); RDW 15.6 % (11.5-14.5); WBC 3.26 X 10*3/uL (4.50-10.00)
[2020-10-05 09:46] LABS: Potassium 4.7 mmol/L (3.5-5.5)
[2020-10-05 10:13] LABS: African American GFR (CKD) 107.2 (60.0-200.0); Albumin 3.6 g/dL (3.80-4.90); Albumin/Globulin Ratio 1.33 (1.60-3.17); Anion Gap 9.1 mmol/L (4.00-12.00); BUN/Creat Ratio 26.67 Ratio (12.00-20.00); Calcium 8.3 mg/dL (8.7-10.3); Carbon Dioxide 27.9 mmol/L (21.6-31.8); Globulin 2.7 g/dL (1.6-3.3); Non-African American GFR(CKD) 92.5 (60.0-200.0); Total Bilirubin 0.7 mg/dL (0.3-1.2); Total Protein 6.3 g/dL (6.2-8.2)
--- NOTE | 2020-10-05 11:09 | P.PN ---
Subjective Progress Note Date: 10/05/20 Feels okay, no chest pain no abdominal pain no nausea no vomiting no dizziness Objective - Vital Signs Vital signs: Vital Signs Temp 98.3 F 10/04/20 12:37 Pulse 112 H 10/05/20 10:54 Resp 18 10/05/20 06:40 BP 185/94 10/05/20 06:40 Pulse Ox 91 L 10/05/20 06:40 Intake & Output 10/04/20 10/05/20 10/05/20 18:59 06:59 18:59 Weight 81.647 kg - Exam Constitutional: No acute distress, conversant Eyes: Anicteric sclerae ENMT: NC/AT Neck:Supple, FROM, no masses Lungs: Clear to auscultation, Clear to percussion, Normal respiratory effort, no accessory muscle use Cardiovascular: Heart regular in rate and rhythm, No murmurs, gallops, or rubs no peripheral edema Abdominal: Soft Nontender, non distended, no guarding, no rebound or rigidity, Normoactive bowel sounds Skin: Normal temperature Extremities:No digital cyanosis No clubbing Psychiatric: Alert and oriented to person, place and time,depressed Neuro: Muscles Strength 5/5 in all 4 extremities, Sensation to light touch grossly present throughout, Cranial nerves II-XII grossly intact. No focal sensory deficits - Labs CBC & Chem 7: 10/05/20 04:22 10/05/20 04:22 Labs: Abnormal Lab Results - Last 24 Hours (Table) 10/04/20 10/04/20 10/04/20 Range/Units 14:01 14:01 14:01 WBC (4.50-10.00) X 10*3/uL RBC (4.40-5.60) X 10*6/uL Hgb (13.0-17.0) g/dL MCHC (32.0-37.0) g/dL RDW (11.5-14.5) % Plt Count 125 L (150-450) k/uL Absolute Nucleated RBC (0.00-0.00) X 10*3/uL Lymphocytes # 0.6 L (1.0-4.8) k/uL NRBC/100 WBC Diff (0.0-0.0) /100 WBCS Chloride 96 L (98-107) mmol/L BUN 32 H (9-20) mg/dL BUN/Creatinine Ratio (12.00-20.00) Ratio Glucose 102 H (74-99) mg/dL Calcium (8.7-10.3) mg/dL Magnesium 1.4 L (1.6-2.3) mg/dL AST (14-35) U/L ALT (10-49) U/L C-Reactive Protein 8.1 H (<1.0) mg/dL Albumin (3.80-4.90) g/dL Albumin/Globulin Ratio (1.60-3.17) g/dL Urine Protein (Negative) Urine Blood (Negative) Urine Bacteria (None) /hpf Hyaline Casts (0-2) /lpf Urine Mucus (None) /hpf U Benzodiazepines Scrn (NotDetected) U Marijuana (THC) Screen (NotDetected) Serum Alcohol 393 H* mg/dL 10/05/20 10/05/20 10/05/20 Range/Units 04:22 04:22 04:47 WBC 3.26 L (4.50-10.00) X 10*3/uL RBC 4.26 L (4.40-5.60) X 10*6/uL Hgb 12.9 L (13.0-17.0) g/dL MCHC 31.8 L (32.0-37.0) g/dL RDW 15.6 H (11.5-14.5) % Plt Count 118 L (150-450) k/uL Absolute Nucleated RBC 0.04 H (0.00-0.00) X 10*3/uL Lymphocytes # (1.0-4.8) k/uL NRBC/100 WBC Diff 1.2 H (0.0-0.0) /100 WBCS Chloride (98-107) mmol/L BUN (9-20) mg/dL BUN/Creatinine Ratio 26.67 H (12.00-20.00) Ratio Glucose 176 H (74-99) mg/dL Calcium 8.3 L (8.7-10.3) mg/dL Magnesium (1.6-2.3) mg/dL AST 59 H (14-35) U/L ALT 55 H (10-49) U/L C-Reactive Protein (<1.0) mg/dL Albumin 3.60 L (3.80-4.90) g/dL Albumin/Globulin Ratio 1.33 L (1.60-3.17) g/dL Urine Protein 1+ H (Negative) Urine Blood Trace H (Negative) Urine Bacteria Rare H (None) /hpf Hyaline Casts 3 H (0-2) /lpf Urine Mucus Rare H (None) /hpf U Benzodiazepines Scrn Detected H (NotDetected) U Marijuana (THC) Screen Detected H (NotDetected) Serum Alcohol mg/dL Assessment and Plan Plan: 1. Alcohol intoxication/dependence now with withdrawal: Serum alcohol 393, supportive care, multivitamins thiamine and folate. On CIWA protocol 2. Suicidal thoughts: Place on suicide precautions, psychiatry consultation. 3. Thrombocytopenia likely associated with alcohol abuse: Platelets 125, monitor. 118 4. Hypomagnesemia: Magnesium 1.4, replace. 2 5. Depression: Consult psychiatry 6. COPD without exacerbation: Oxygen and bronchodilators as indicated Disposition: Needs inpatient psychiatry once medically stable.
[2020-10-05] MEDS: FOLIC ACID 1 MG TAB PO SCH (12:36)
[2020-10-05] MEDS: MULTIVITAMINS, THERA 1 EACH TAB PO SCH (12:36)
[2020-10-05] MEDS: NICOTINE 21MG/24HR PATCH TRANSDERM SCH (12:46)
[2020-10-05] MEDS: DOCUSATE 100 MG CAP PO SCH (19:56)
--- NOTE | 2020-10-05 21:48 | CONS ---
CONSULTATION DATE OF SERVICE: 10/05/2020 PURPOSE FOR CONSULTATION: Evaluate for suicidality in the face of alcohol dependence and acute alcohol intoxication. HISTORY OF PRESENTING ILLNESS: The patient is a 60-year-old male. He presented to the ED with alcohol intoxication. He had suicide thinking. Serum alcohol level on admission was 393. The patient notes that a significant stress issue is that his mother recently . In addition, he said he was feeling very hopeless and stated that he would likely commit suicide when he went home. Part of the reason for this is that he says he continues to drink and has not been able to stop. He says he feels hopeless about his drinking situation. He was unable to provide too much history at the time that I interviewed him. He did say that he was at [facility] a few years ago and felt that it was helpful. He was unable to give much more details than that. He did indicate that he would consider going back to [facility]. CIWA scores today have fluctuated from 15 at a high down to 6 at a low. The patient indicated that he is not receiving any mental health or substance use services and that he is not taking any psychotropic medications. MENTAL STATUS EXAM: Patient gave fair eye contact. He was somewhat restless. He would respond to questions with brief answers, though he was unable to provide much information. He was slow in his speech. His affect was flat. His mood reserved. He appeared moderately distressed. It was difficult to assess for thought disorder. He continues to make statements regarding suicide thinking. On cognitive exam, he was only oriented to the fact that he was in the hospital and that he lives in [place]. He could not answer any other formal cognitive or orientation questions. ASSESSMENT: This 60-year-old male is diagnosed with alcohol dependence and possible major depression. He presents in acute alcohol withdrawal, which is the primary treatment issue at this time. Mental status is significantly impaired. I would continue with current treatment and as the patient's thinking clears, we could discuss issues of followup care. The patient was not comprehending much in the interview process, so I kept the interview limited. I will continue to follow. MMSHONL / CHARLIN: [id number] /
[2020-10-06] MEDS: LORazepam 2 MG/ML INJ IV PRN ×7 (02:14→22:24)
[2020-10-06] MEDS: methylPREDNISolone SOD SUCCI 125 MG/2 ML VIAL IV SCH ×4 (05:15→22:25)
[2020-10-06] MEDS: THIAMINE 100 MG TAB PO SCH ×3 (07:07→17:14)
[2020-10-06] MEDS: MULTIVITAMINS, THERA 1 EACH TAB PO SCH (07:43)
[2020-10-06] MEDS: IPRATROPIUM-ALBUTEROL 3 ML NEB INHALATION SCH ×4 (07:43→19:43)
[2020-10-06] MEDS: FOLIC ACID 1 MG TAB PO SCH (07:43)
[2020-10-06] MEDS: DOCUSATE 100 MG CAP PO SCH (07:43)
[2020-10-06] MEDS: NICOTINE 21MG/24HR PATCH TRANSDERM SCH (07:43)
[2020-10-06] MEDS: SODIUM CHLORIDE 0.9% 1,000 ML IV SCH ×2 (07:44→17:14)
[2020-10-06 10:53] LABS: Basophils # (A) 0.01 X 10*3/uL (0.00-0.10); Basophils % (A) 0.1 %; Eosinophils # (A) 0 X 10*3/uL (0.04-0.35); Eosinophils % (A) 0 %; HCT 42.8 % (39.6-50.0); HGB 13.5 g/dL (13.0-17.0); Lymphocytes % (A) 3.8 %; MCH 30.1 pg (27.0-32.0); MCHC 31.5 g/dL (32.0-37.0); MCV 95.3 fL (80.0-97.0); Mean Platelet Volume 10.9 fL (9.5-12.2); Monocytes # (A) 0.35 X 10*3/uL (0.20-1.00); Monocytes % (A) 4.4 %; Neutrophils # (A) 7.26 X 10*3/uL (1.80-7.70); Neutrophils % (A) 91.3 %; Platelet Count 137 X 10*3/uL (140-440); RBC 4.49 X 10*6/uL (4.40-5.60); RDW 15.5 % (11.5-14.5); WBC 7.95 X 10*3/uL (4.50-10.00)
[2020-10-06 11:27] LABS: African American GFR (CKD) 112.5 (60.0-200.0); Albumin 3.6 g/dL (3.80-4.90); Albumin/Globulin Ratio 1.5 (1.60-3.17); BUN/Creat Ratio 27.5 Ratio (12.00-20.00); Calcium 8.1 mg/dL (8.7-10.3); Globulin 2.4 g/dL (1.6-3.3); Non-African American GFR(CKD) 97.1 (60.0-200.0); Potassium 3.5 mmol/L (3.5-5.5); Total Bilirubin 0.9 mg/dL (0.2-1.2)
--- NOTE | 2020-10-06 12:35 | P.PN ---
Subjective Progress Note Date: 10/06/20 Feels okay, no chest pain no abdominal pain no nausea no vomiting no dizziness. No tremors. No dizziness. Still claims to be suicidal. Objective - Vital Signs Vital signs: Vital Signs Temp 97.4 F L 10/06/20 07:15 Pulse 115 H 10/06/20 07:55 Resp 18 10/06/20 07:55 BP 158/86 10/06/20 07:15 Pulse Ox 94 L 10/06/20 07:44 Intake & Output 10/05/20 10/06/20 10/06/20 18:59 06:59 18:59 Output Total 1500 Balance -1500 Weight 81.647 kg Output: Urine 1500 Other: Voiding Method Urinal # Bowel Movements 0 - Exam Constitutional: No acute distress, conversant Eyes: Anicteric sclerae ENMT: NC/AT Neck:Supple, FROM, no masses Lungs: Clear to auscultation, Clear to percussion, Normal respiratory effort, no accessory muscle use Cardiovascular: Heart regular in rate and rhythm, No murmurs, gallops, or rubs no peripheral edema Abdominal: Soft Nontender, non distended, no guarding, no rebound or rigidity, Normoactive bowel sounds Skin: Normal temperature Extremities:No digital cyanosis No clubbing Psychiatric: Alert and oriented to person, place and time,depressed Neuro: Muscles Strength 5/5 in all 4 extremities, Cranial nerves II-XII grossly intact. No focal sensory deficits - Labs CBC & Chem 7: 10/06/20 06:00 10/06/20 06:00 Labs: Abnormal Lab Results - Last 24 Hours (Table) 10/06/20 10/06/20 Range/Units 06:00 06:00 MCHC 31.5 L (32.0-37.0) g/dL RDW 15.5 H (11.5-14.5) % Plt Count 137 L (140-440) X 10*3/uL Lymphocytes # 0.30 L (0.90-5.00) X 10*3/uL Eosinophils # 0 L (0.04-0.35) X 10*3/uL Chloride 95 L (96-109) mmol/L Carbon Dioxide 34.0 H (21.6-31.8) mmol/L BUN/Creatinine Ratio 27.50 H (12.00-20.00) Ratio Glucose 164 H (70-110) mg/dL Calcium 8.1 L (8.7-10.3) mg/dL AST 90 H (14-35) U/L ALT 60 H (10-49) U/L Total Protein 6.0 L (6.2-8.2) g/dL Albumin 3.60 L (3.80-4.90) g/dL Albumin/Globulin Ratio 1.50 L (1.60-3.17) g/dL Assessment and Plan Plan: 1. Alcohol intoxication/dependence now with withdrawal: Serum alcohol 393, supportive care, multivitamins thiamine and folate. On CIWA protocol, clinically better. 2. Suicidal thoughts: Place on suicide precautions, psychiatry consultation. 3. Thrombocytopenia likely associated with alcohol abuse: Platelets 137 4. Hypomagnesemia: replace as indicated 5. Depression: Consult psychiatry 6. COPD without exacerbation: Oxygen and bronchodilators as indicated Disposition: appreciate inpatient psychiatry input. plan to dc to inpatient psych likely tomorrow
--- NOTE | 2020-10-06 16:30 | CONS ---
CONSULTATION DATE OF SERVICE: 10/06/2020 PURPOSE FOR CONSULTATION: Evaluate for suicidality in the face of alcohol dependence and acute alcohol intoxication. INTERVAL HISTORY: When I saw the patient today he continued to show significant confusion and altered mental status. He was not able to tell me where he was or what his circumstances were. He was able to say that he was in [place]. He seemed to hesitate even to say he was in a hospital. He was not able to respond to any orientation questions. He would respond with 1 or 2 word answers, though most of what he said was disconnected from anything going on around him. It is noted that CIWA scores today have all been either 9 or 10. Vital signs for the most part have been relatively stable. Nursing noted that his blood pressure went up when he was trying to get out of bed at one point. Vital signs at 2:13 p.m. today include BP 166/71, pulse 99, respirations 18, oxygen saturation 92 on 3 L nasal cannula, temp 97.7. At this point, the patient appears to be in a relatively stable situation in terms of the management of his acute alcohol withdrawal. I will continue to follow as appropriate based on any additional psychiatric concerns. MMODL / IJN: [id number] /
[2020-10-07] MEDS: LORazepam 2 MG/ML INJ IV PRN ×7 (00:23→22:18)
[2020-10-07] MEDS: SODIUM CHLORIDE 0.9% 1,000 ML IV SCH ×2 (04:02→09:30)
[2020-10-07] MEDS: methylPREDNISolone SOD SUCCI 125 MG/2 ML VIAL IV SCH ×3 (05:28→17:00)
[2020-10-07] MEDS: IPRATROPIUM-ALBUTEROL 3 ML NEB INHALATION SCH ×4 (07:48→19:31)
[2020-10-07] MEDS: THIAMINE 100 MG TAB PO SCH ×3 (08:38→16:51)
[2020-10-07] MEDS: DOCUSATE 100 MG CAP PO SCH (08:38)
[2020-10-07] MEDS: NICOTINE 21MG/24HR PATCH TRANSDERM SCH (08:38)
[2020-10-07] MEDS: FOLIC ACID 1 MG TAB PO SCH (08:38)
[2020-10-07] MEDS: MULTIVITAMINS, THERA 1 EACH TAB PO SCH (08:38)
--- NOTE | 2020-10-07 09:50 | P.DS ---
Providers Date of admission: 10/06/20 08:29 Expected date of discharge: 10/07/20 Attending physician: Patricia Yang MD Consults: 10/04/20 16:11 Consult Physician Routine Consulting Provider: Elijah Hutchinson Consult Reason/Comments: SI Do you want consulting provider notified?: Yes Primary care physician: Stated None Hospital Course: HPI: Chief Complaint: Suicidal thoughts and alcohol intoxication This is 60-year-old white male who reported to the emergency room because of alcohol intoxication and suicidal thoughts. Patient states that he drinks al cohol daily. He has been intoxicated. He states that he has been depressed. His mother recently . He states that he will likely commit suicide once he goes home. He denies chest pain, no abdominal pain, no nausea or vomiting. No dizziness no loss of consciousness. Hospital course and treatment: Patient was admitted to the hospital with alcohol intoxication and suicidal ideations. He was placed on withdrawal protocol. He developed some withdrawal symptoms but is continued to gradually improve. By the time of discharge no with withdrawal symptoms are noted. He continued to be suicidal. He was evaluated by psychiatry. He would benefit from inpatient psychiatry admission as patient continued to be suicidal. He'll be transferred stool inpatient psychiatry. Diagnoses upon discharge: 1. Alcohol intoxication 2. Alcohol dependence/abuse with withdrawal 3. Suicidal ideation 4. Chronic atrial fibrillation 5. COPD without exacerbation 6. Essential hypertension Patient Condition at Discharge: Fair Plan - Discharge Summary Discharge Rx Participant: No New Discharge Prescriptions: Continue No Known Home Medications Discharge Medication List No Known Home Medications 10/04/20 [History] Follow up Appointment(s)/Referral(s): None,Stated [Primary Care Provider] - 1-2 days Discharge Disposition: TRANSFER TO PSYCH HOSP/UNIT
--- NOTE | 2020-10-07 18:09 | CONS ---
CONSULTATION DATE OF SERVICE: 10/07/2020 PURPOSE FOR CONSULTATION: Evaluate for suicidality in the face of alcohol dependence and acute alcohol intoxication. INTERVAL HISTORY: The patient continues doing about the same. He continued to show moderate withdrawal symptoms yesterday and was receiving Ativan 1 mg on a 2-hour to 3-hour routine based on CIWA scores that were up to 15. He has had some decline today. Nursing states that he seems to be able to go about 3 to 4 hours without requiring an Ativan. Systolic blood pressure has been up, generally in the 150 or above range. His pulse has been up in the low 100s. Vital signs documented this morning at 0800 include BP 155/61, pulse 109, temperature 97.5, respirations 16, oxygen saturation 95 on nasal cannula with 4 L. For the rest of the morning, his pulse has been below 100. Nursing notes that he is quite unsteady on his feet and needs assistance with ambulation. He continues with one- on-one observation. He has made suicide statements. He did not indicate any risk to harm himself or plan while he is on the medical unit. When I asked him about this, he said one thought he has is walking into traffic, though says he has no thoughts about harming himself here. He continues to say he would consider going into [place]. He acknowledges that a main stressor for him is being homeless. He was not able to tell me much about how long he has been homeless or what living situation he had prior to becoming homeless. A grief issue is the recent passing of his mother. In regard to orientation, the patient could tell me he is in [place] at [facility]. He first said it was September, and with some coaxing was then able to say October. He could say it was 2020. He did not know the day of the week. He was quite slow in his responses and had to hesitate and think before responding to each orientation question. During the interview the patient lay on his side with his head turned somewhat toward me. He gave fair eye contact. He was slow in movements. He spoke in a soft voice. His responses at most were one- or two-word answers. He had a worried manner. He seemed somewhat distressed. His mood was down. ASSESSMENT: I will continue the current diagnosis and treatment plan. The patient continues to show early withdrawal issues and is now at day 3 of withdrawal. As noted, his alcohol level on admission was 393. He is at a significant risk point for delirium tremens relating to withdrawal, though for the most part he is responding adequately to therapy with Ativan. Given that he is not ambulatory at this time, I talked with the nurse and the plan was to order a PT consult. He continues to show mental clouding, though there is improvement in orientation between yesterday and today. We will continue with Ativan as his primary therapy for withdrawal based on CIAZ protocol. He continues to have vague suicide thoughts. At this point he would not be appropriate for admission to the psychiatric unit, given continued IV therapy, use of oxygen, his essentially being nonambulatory and his altered mental status. He has shown improvement in the last 3 days. I will continue to follow. KEIKO / LM: [id number] /
[2020-10-07] MEDS ORDERED: IBUPROFEN 600 MG TAB PO STA (22:31)
[2020-10-08] MEDS: methylPREDNISolone SOD SUCCI 125 MG/2 ML VIAL IV SCH ×5 (00:02→23:43)
[2020-10-08] MEDS: LORazepam 2 MG/ML INJ IV PRN ×2 (01:59→05:51)
[2020-10-08] MEDS: SODIUM CHLORIDE 0.9% 1,000 ML IV SCH ×2 (02:02→09:58)
[2020-10-08] MEDS: FOLIC ACID 1 MG TAB PO SCH (07:58)
[2020-10-08] MEDS: THIAMINE 100 MG TAB PO SCH ×3 (07:58→17:03)
[2020-10-08] MEDS: DOCUSATE 100 MG CAP PO SCH (07:58)
[2020-10-08] MEDS: MULTIVITAMINS, THERA 1 EACH TAB PO SCH (07:58)
[2020-10-08] MEDS: NICOTINE 21MG/24HR PATCH TRANSDERM SCH (07:59)
[2020-10-08] MEDS: IPRATROPIUM-ALBUTEROL 3 ML NEB INHALATION SCH ×4 (08:01→22:08)
--- NOTE | 2020-10-08 08:57 | P.PN ---
Subjective Progress Note Date: 10/07/20 Feels okay, no chest pain no abdominal pain no nausea no vomiting no dizziness. No major overnight changes. Objective - Vital Signs Vital signs: Vital Signs Temp 98.1 F 10/08/20 07:48 Pulse 112 H 10/08/20 08:11 Resp 16 10/08/20 07:48 BP 176/106 10/08/20 07:48 Pulse Ox 91 L 10/08/20 07:48 Intake & Output 10/07/20 10/08/20 10/08/20 18:59 06:59 18:59 Output Total 800 850 Balance -800 -850 Output: Urine 800 850 - Exam Constitutional: No acute distress Eyes: Anicteric sclerae ENMT: NC/AT Neck:Supple, FROM, no masses Lungs: Clear to auscultation, Clear to percussion, Normal respiratory effort, no accessory muscle use Cardiovascular: Heart regular in rate and rhythm, No murmurs, gallops, or rubs no peripheral edema Abdominal: Soft Nontender, non distended Skin: Normal temperature Extremities:No digital cyanosis No clubbing Psychiatric: Alert and oriented to person, place and time,depressed Neuro: Muscles Strength 5/5 in all 4 extremities, Cranial nerves II-XII grossly intact. No focal sensory deficits - Labs CBC & Chem 7: 10/06/20 06:00 10/06/20 06:00 Assessment and Plan Plan: 1. Alcohol intoxication/dependence now with withdrawal: Serum alcohol 393, supportive care, multivitamins thiamine and folate. On CIWA protocol, clinically better. 2. Suicidal thoughts: Place on suicide precautions, psychiatry consultation. 3. Thrombocytopenia likely associated with alcohol abuse: monitor 4. Hypomagnesemia: replace as indicated 5. Depression: Consult psychiatry 6. COPD without exacerbation: Oxygen and bronchodilators as indicated Disposition: appreciate inpatient psychiatry input. plan to dc to inpatient psych once accepted
--- NOTE | 2020-10-08 08:58 | P.PN ---
Subjective Progress Note Date: 10/08/20 In bed, does not appear to be in distress, no chest pain no abdominal pain no nausea or vomiting. No dizziness. Objective - Vital Signs Vital signs: Vital Signs Temp 98.1 F 10/08/20 07:48 Pulse 112 H 10/08/20 08:11 Resp 16 10/08/20 07:48 BP 176/106 10/08/20 07:48 Pulse Ox 91 L 10/08/20 07:48 Intake & Output 10/07/20 10/08/20 10/08/20 18:59 06:59 18:59 Output Total 800 850 Balance -800 -850 Output: Urine 800 850 - Exam Constitutional: No acute distress Eyes: Anicteric sclerae ENMT: NC/AT Neck:Supple, FROM, no masses Lungs: Clear to auscultation, Clear to percussion, Normal respiratory effort, Cardiovascular: Heart regular in rate and rhythm, No murmurs, gallops, or rubs no peripheral edema Abdominal: Soft Nontender, non distended Skin: Normal temperature Extremities:No digital cyanosis No clubbing Psychiatric: Alert and oriented to person, place and time,depressed Neuro: Muscles Strength 5/5 in all 4 extremities, Cranial nerves II-XII grossly intact. No focal sensory deficits - Labs CBC & Chem 7: 10/06/20 06:00 10/06/20 06:00 Assessment and Plan Plan: 1. Alcohol intoxication/dependence now with withdrawal: supportive care, multivitamins thiamine and folate. On CIWA protocol, clinically improving. 2. Suicidal thoughts: Place on suicide precautions, psychiatry consultation. 3. Thrombocytopenia likely associated with alcohol abuse: monitor 4. Hypomagnesemia: replace as indicated 5. Depression: Consult psychiatry 6. COPD without exacerbation: Oxygen and bronchodilators as indicated 7. Weakness: Consult PTOT Disposition: appreciate inpatient psychiatry input. plan to dc to inpatient psych once accepted , pending PT evaluation
[2020-10-08] MEDS: ACETAMINOPHEN TAB 325 MG TAB PO PRN ×2 (17:04→20:52)
--- NOTE | 2020-10-08 20:37 | CONS ---
CONSULTATION DATE OF SERVICE: 10/08/2020 PURPOSE FOR CONSULTATION: Evaluate for suicidality in the face of alcohol dependence and acute alcohol intoxication. INTERVAL HISTORY: The patient has been doing fair. He had a quiet day yesterday. He was showing gradual stabilizing from acute alcohol withdrawal. He had a physical therapy consult yesterday. He said in his evaluation with PT he was able to ambulate with some arm assistance from staff. He noted that he was able to ambulate, though he was quite shaky. He slept fair last night. Today he has been up. He still is fairly slow in his responses. He continues to show elevated blood pressure and pulse. Vital signs at 1400 include BP 159/95, pulse 61 and regular, temperature 98.5, oxygen saturation 92 on room air. At 1930, BP 159/91, pulse 125, temperature 97.6, oxygen saturation 95 on room air. He continues on IV fluids. He has received 2 doses of Ativan for elevated CIWA scores, including at 2 in the morning and 6 in the morning. He has not required any Ativan since then. CIWA scores have been 2 or 1 since then. When I talked to him today, he was awake but pretty quiet. He did not really say much. When I tried to ask him about any thoughts of harm, he did not really give clear responses. He had been making statements that he had suicide thoughts up to yesterday. He just did not say much today when I tried talking to him. He was able to describe his situation with evaluation by physical therapy as the most of what he said. ASSESSMENT: I will continue current diagnosis and treatment plan. We could look to transfer the patient to the psychiatric unit once he is off IVs. It does appear that he will need some additional physical therapy assistance, including use of a walker. We will look to get a little more input from PT. He does appear to be moving beyond the high risk period for delirium tremens. I will continue to follow. MMODL / IJN: [id number] /
[2020-10-09] MEDS: ACETAMINOPHEN TAB 325 MG TAB PO PRN ×4 (00:57→22:04)
[2020-10-09] MEDS: SODIUM CHLORIDE 0.9% 1,000 ML IV SCH ×2 (01:07→05:15)
[2020-10-09] MEDS: methylPREDNISolone SOD SUCCI 125 MG/2 ML VIAL IV SCH (05:16)
[2020-10-09] MEDS: IPRATROPIUM-ALBUTEROL 3 ML NEB INHALATION SCH ×4 (08:07→21:30)
[2020-10-09] MEDS: MULTIVITAMINS, THERA 1 EACH TAB PO SCH (08:53)
[2020-10-09] MEDS: NICOTINE 21MG/24HR PATCH TRANSDERM SCH (08:53)
[2020-10-09] MEDS: THIAMINE 100 MG TAB PO SCH ×3 (08:53→16:44)
[2020-10-09] MEDS: DOCUSATE 100 MG CAP PO SCH (08:53)
[2020-10-09] MEDS: FOLIC ACID 1 MG TAB PO SCH (08:53)
--- NOTE | 2020-10-09 09:06 | P.PN ---
Subjective Progress Note Date: 10/09/20 In bed, does not appear to be in distress, no chest pain no abdominal pain no nausea or vomiting. No dizziness. no major overnight changes Objective - Vital Signs Vital signs: Vital Signs Temp 98.4 F 10/09/20 07:54 Pulse 90 10/09/20 08:20 Resp 16 10/09/20 07:54 BP 174/107 10/09/20 07:54 Pulse Ox 93 L 10/09/20 07:54 Intake & Output 10/08/20 10/09/20 10/09/20 18:59 06:59 18:59 Intake Total 1040 Output Total 1700 1175 Balance -660 -1175 Intake: Intake, IV Titration 800 Amount Sodium Chloride 0.9% 1, 800 000 ml @ 100 mls/hr IV . Q10H [facility] Rx#:[id number] Oral 240 Output: Urine 1700 1175 - Exam Constitutional: No acute distress Eyes: Anicteric sclerae ENMT: NC/AT Neck:Supple, FROM, no masses Lungs: Clear to auscultation, Clear to percussion, Normal respiratory effort, Cardiovascular: Heart regular in rate and rhythm, No murmurs, gallops, or rubs no peripheral edema Abdominal: Soft Nontender, non distended Skin: Normal temperature Extremities:No digital cyanosis No clubbing Psychiatric: Alert and oriented to person, place and time,depressed Neuro: Muscles Strength 5/5 in all 4 extremities, Cranial nerves II-XII grossly intact. - Labs CBC & Chem 7: 10/06/20 06:00 10/06/20 06:00 Assessment and Plan Plan: 1. Alcohol intoxication/dependence now with withdrawal: supportive care, multivitamins thiamine and folate. On CIWA protocol, clinically better 2. Suicidal thoughts: Place on suicide precautions, psychiatry consultation. 3. Thrombocytopenia likely associated with alcohol abuse: monitor 4. Hypomagnesemia: replace as indicated 5. Depression: Consult psychiatry, input appreciated 6. COPD without exacerbation: Oxygen and bronchodilators as indicated 7. Weakness: Consult PTOT Disposition: appreciate inpatient psychiatry input. plan to dc to inpatient psych once accepted , pending PT evaluation
[2020-10-09 09:19] LABS: Basophils # (A) 0.02 X 10*3/uL (0.00-0.10); Basophils % (A) 0.1 %; Eosinophils # (A) 0 X 10*3/uL (0.04-0.35); Eosinophils % (A) 0 %; HCT 40.6 % (39.6-50.0); HGB 12.8 g/dL (13.0-17.0); Lymphocytes # (A) 0.34 X 10*3/uL (0.90-5.00); Lymphocytes % (A) 2.5 %; MCHC 31.5 g/dL (32.0-37.0); MCV 95.3 fL (80.0-97.0); Mean Platelet Volume 11.4 fL (9.5-12.2); Monocytes # (A) 0.83 X 10*3/uL (0.20-1.00); Monocytes % (A) 6.2 %; Neutrophils # (A) 12.08 X 10*3/uL (1.80-7.70); Neutrophils % (A) 90.7 %; Platelet Count 103 X 10*3/uL (140-440); RBC 4.26 X 10*6/uL (4.40-5.60); RDW 15.8 % (11.5-14.5); WBC 13.34 X 10*3/uL (4.50-10.00)
[2020-10-09 11:35] LABS: African American GFR (CKD) 112.5 (60.0-200.0); Albumin 3.6 g/dL (3.80-4.90); Albumin/Globulin Ratio 1.89 (1.60-3.17); Anion Gap 11.8 mmol/L (4.00-12.00); BUN/Creat Ratio 43.75 Ratio (12.00-20.00); Carbon Dioxide 30.2 mmol/L (21.6-31.8); Globulin 1.9 g/dL (1.6-3.3); Non-African American GFR(CKD) 97.1 (60.0-200.0); Potassium 4.1 mmol/L (3.5-5.5); Total Bilirubin 0.6 mg/dL (0.3-1.2); Total Protein 5.5 g/dL (6.2-8.2)
--- NOTE | 2020-10-09 15:56 | CONS ---
CONSULTATION DATE OF SERVICE: 10/09/2020 PURPOSE FOR CONSULTATION: Evaluate for suicidality in the face of alcohol dependence and acute alcohol intoxication. INTERVAL HISTORY: The patient has been doing fair. From the standpoint of some alcohol withdrawal issues, he has shown improvement. He is clear in his thinking. Vital signs have been stable. His CIWA scores today have been low. He has been more interactive with staff. His last Ativan dose was 5:51 yesterday morning. He continues to show weakness in extremities and ambulation. Orientation has improved. Today when I talked to the patient about any thoughts of suicide, he stated quite clearly that he is not having suicide thoughts any more. When I talked to him about options such as going to physical rehab as an initial step as part of recovery, he was in agreement with that. He was concerned about what facility he might go to and if it would be local or not. He seemed comfortable with the idea of going into a rehab program for a projected time of about 2 weeks to gain strength. The patient continues to say he would have some interest in going to [facility]. I did explain to the patient that that would involve him making the initial contact to [facility]. I anticipated that there might be a waiting list and that it would be a good option for him when he gets transferred to a physical therapy program to make that as one of the first steps in the process of getting himself stronger physically, and then going into a rehab program. Patient did seem to be inclined to go in that direction. From a psychiatric standpoint, I would assess the patient as being clear. In regard to any immediate psychiatric issues, he is not indicating any thoughts of suicide or self-harm. He seems to have a fairly good understanding of what a plan of recovery would include, which would start with his being in a physical rehab program. He will consider [facility] as the next step following rehab. He did talk about the idea that if he can get himself clean from alcohol he would have the option of some stable living situations, though being clean would be the first step. I would recommend the patient be transferred to a physical rehab program for follow-up care. KEIKO / LM: [id number] /
[2020-10-10 05:14] VITALS: RESP 17
[2020-10-10] MEDS: THIAMINE 100 MG TAB PO SCH ×2 (07:17→07:19)
[2020-10-10] MEDS: FOLIC ACID 1 MG TAB PO SCH (07:19)
[2020-10-10] MEDS: NICOTINE 21MG/24HR PATCH TRANSDERM SCH (07:19)
[2020-10-10] MEDS: MULTIVITAMINS, THERA 1 EACH TAB PO SCH (07:19)
[2020-10-10] MEDS: DOCUSATE 100 MG CAP PO SCH (07:19)
[2020-10-10] MEDS: IPRATROPIUM-ALBUTEROL 3 ML NEB INHALATION SCH ×2 (07:37→11:16)
[2020-10-10 07:55] VITALS: BP 126/73; TEMP 98.9
[2020-10-10 08:24] VITALS: BMI 24.4
[2020-10-10 09:57] LABS: ALT 111 U/L (4-49); AST 71 U/L (17-59); African American GFR (CKD) >90 (>60 ml/min/1.73 sqM); Albumin 2.8 g/dL (3.5-5.0); Albumin/Globulin Ratio 1.1; Alkaline Phosphatase 59 U/L (38-126); Anion Gap 7 mmol/L; Blood Urea Nitrogen 45 mg/dL (9-20); Calcium 8.7 mg/dL (8.4-10.2); Carbon Dioxide 31 mmol/L (22-30); Chloride 97 mmol/L (98-107); Globulin 2.5 g/dL; Glucose 78 mg/dL (74-99); Non-African American GFR(CKD) >90 (>60 ml/min/1.73 sqM); Potassium 3.9 mmol/L (3.5-5.1); Sodium 135 mmol/L (137-145); Total Bilirubin 0.7 mg/dL (0.2-1.3); Total Protein 5.3 g/dL (6.3-8.2)
[2020-10-10 10:49] LABS: HCT 41.7 % (39.0-53.0); HGB 12.9 gm/dL (13.0-17.5); RBC 4.36 m/uL (4.30-5.90); WBC 5.6 k/uL (3.8-10.6)
[2020-10-10 10:50] LABS: Basophils % (A) 0 %; Eosinophils # (A) 0.1 k/uL (0-0.7); Eosinophils % (A) 1 %; Hypochromasia Slight; Lymphocytes # (A) 0.8 k/uL (1.0-4.8); Lymphocytes % (A) 14 %; MCH 29.5 pg (25.0-35.0); MCHC 30.9 g/dL (31.0-37.0); MCV 95.6 fL (80.0-100.0); Mean Platelet Volume 9.9; Monocytes # (A) 0.7 k/uL (0-1.0); Monocytes % (A) 12 %; Neutrophils % (A) 71 %; Platelet Count 104 k/uL (150-450); RDW 15.7 % (11.5-15.5)
[2020-10-10 11:19] VITALS: PULSE 88
--- NOTE | 2020-10-10 13:16 | P.DS ---
Providers Date of admission: 10/06/20 08:29 Expected date of discharge: 10/10/20 Attending physician: Patricia Yang MD Consults: 10/04/20 16:11 Consult Physician Routine Consulting Provider: Elijah Hutchinson Consult Reason/Comments: SI Do you want consulting provider notified?: Yes Primary care physician: Stated None Hospital Course: Discharge Diagnosis: Alcohol withdrawal Suicidal ideation, resolved, cleared by psych Thromboctyopaenia Hypomagnesemia Depression COPD without exacerabtion Tobacco abuse Weakness Hospital Course: Patient is a 60 yo CM with a hx of A fib, COPD, and HTN who presetned to the ED with alcohol intoxication and suicial thoughts. He was admitted for alcohol withdrawal. He was started on CIWA protocol. He continued to improve. He was seen by psychiatry, he was no longer suicidial. He was determined to have significant weakness. He was determined to have signifiant weakness. He will be discharge to [facility]. He did have some left upper extremity edema due to infiltrated IV, suggest elevation and movement. Patient seen and examined at bedside. Denies chest pain, SOB, nausea, no vomiting, no agiatation, no tremors. Vital signs reviewed and stable. General: non toxic, no distress, appears at stated age, disheveled Derm: warm, dry Head: atraumatic, normocephalic, symmetric Eyes: EOMI, no lid lag, anicteric sclera Mouth: no lip lesion, mucus membranes moist Cardiovascular: S1S2 reg, no murmur, positive posterior tibial pulse bilateral, Lungs: CTA bilateral, no rhonchi, no rales , no accessory muscle use Abdominal: soft, nontender to palpation, no guarding, no appreciable organomegaly Ext: Left upper extremity swelling near old IV site hand a forearm only no warmth no erythema no gross muscle atrophy, no contractures Neuro: CN II-XI grossly intact, no focal neuro deficits Psych: Alert, oriented, appropriate affect A total of 37 minutes of time were spent preparing this complex discharge summary . Patient Condition at Discharge: Fair Plan - Discharge Summary Discharge Rx Participant: No New Discharge Prescriptions: New Acetaminophen Tab [Tylenol] 650 mg PO Q4HR PRN tab PRN Reason: Fever And/ Or Pain Thiamine [Vitamin B-1] 100 mg PO BID-W/MEALS tab Folic Acid 1 mg PO DAILY tab Discharge Medication List Acetaminophen Tab [Tylenol] 650 mg PO Q4HR PRN tab 10/10/20 [Rx] Folic Acid 1 mg PO DAILY tab 10/10/20 [Rx] Thiamine [Vitamin B-1] 100 mg PO BID-W/MEALS tab 10/10/20 [Rx] Follow up Appointment(s)/Referral(s): None,Stated [Primary Care Provider] - 1-2 days Activity/Diet/Wound Care/Special Instructions: Activity: as tolerated Diet: regular Special Instructions: keep left hand elevated Discharge Disposition: TRANSFER TO SNF/ECF
== END 2020-10-10 12:54 | DRG 897 ==
LOC: EC 12:36 → 4SSUR 16:11 → OBSVTOIN 10-06 08:29
PROVIDERS: ADMIT Internal Medicine; ATTEND Internal Medicine
DX: F10.229 Alcohol dependence with intoxication, unspecified (principal); I48.20 Chronic atrial fibrillation, unspecified; R45.851 Suicidal ideations; D69.59 Other secondary thrombocytopenia; E83.42 Hypomagnesemia; F10.239 Alcohol dependence with withdrawal, unspecified; F17.210 Nicotine dependence, cigarettes, uncomplicated; F32.9 Major depressive disorder, single episode, unspecified; I10 Essential (primary) hypertension; J44.9 Chronic obstructive pulmonary disease, unspecified; Y90.8 Blood alcohol level of 240 mg/100 ml or more; Z59.0 Homelessness; Z79.01 Long term (current) use of anticoagulants; Z79.899 Other long term (current) drug therapy; Z20.822 Contact with and (suspected) exposure to COVID-19
CPT/HCPCS: 36415; 71046; 80048; 80053; 80143; 80179; 80306; 80320; 81001; 82075; 83615; 83690; 83735; 84100; 85025; 85027; 86140; 87636; 94640; 94760; 96365; 96375; 99285

== ENCOUNTER 2020-10-25 22:16 | Inpatient (IN) | payer OTHER ==
[2020-10-25] MEDS ORDERED: SODIUM CHLORIDE 0.9% 1,000 ML IV STA ×2 (22:27)
[2020-10-25] MEDS ORDERED: SODIUM CHLORIDE 0.9% 500 ML 500 ML IV STA (22:27)
[2020-10-25] MEDS ORDERED: IPRATROPIUM-ALBUTEROL 3 ML NEB INHALATION STA (22:27)
--- NOTE | 2020-10-25 22:28 | ED ---
SOB HPI - General Chief Complaint: Shortness of Breath Stated Complaint: SOB Time Seen by Provider: 10/25/20 22:18 Source: EMS, RN notes reviewed, old records reviewed Mode of arrival: EMS Limitations: no limitations - History of Present Illness Initial Comments: This is a 6-year-old male DF for evaluation patient is ectopic. Medical history which is further complicated by alcoholism. Patient coming in for shortness of breath lower extremity edema pain and swelling. Patient casting to catch his breath but is without fever. No chest pain. Patient is multiple hospital admissions for similar conditions. Patient's been short of breath for 2 days of increasing swelling of his lower extremities MD Complaint: shortness of breath -: days(s) (2) Severity: moderate Severity scale (1-10): 5 Quality: dull Consistency: constant Improves With: nothing Worsens With: nothing Known History Of: COPD, congestive heart failure Context: medication noncompliance Associated Symptoms: cough, sputum production, palpitations Treatments Prior to Arrival: none - Related Data Previous Rx's Medication Instructions Recorded Apixaban [Eliquis] 2.5 mg PO BID 30 Days #60 tablet 10/28/20 Diltiazem Cd [Cardizem CD] 180 mg PO DAILY cap.er.24h 10/30/20 Furosemide [Lasix] 40 mg PO DAILY #6 tablet 10/30/20 HYDROcodone/APAP 5-325MG [[place] 1 each PO Q6HR PRN #6 tab 10/30/20 5-325] Ipratropium-Albuterol Nebulize 3 ml INHALATION RT-QID ml 10/30/20 [Duoneb 0.5 mg-3 mg/3 ml Soln] LORazepam [Ativan] 1 mg PO Q8HR PRN #6 tab 10/30/20 Magnesium Oxide [Mag-Ox] 400 mg PO BID tab 10/30/20 Nicotine 14Mg/24Hr Patch [Habitrol] 1 patch TRANSDERM DAILY patch 10/30/20 Thiamine [Vitamin B-1] 100 mg PO BID-W/MEALS tab 10/30/20 Allergies Allergy/AdvReac Type Severity Reaction Status Date / Time No Known Allergies Allergy Verified 10/26/20 08:32 Review of Systems ROS Statement: Those systems with pertinent positive or pertinent negative responses have been documented in the HPI. ROS Other: All systems not noted in ROS Statement are negative. Past Medical History Past Medical History: Atrial Fibrillation, COPD, Hypertension History of Any Multi-Drug Resistant Organisms: None Reported Past Surgical History: No Surgical Hx Reported Past Anesthesia/Blood Transfusion Reactions: No Reported Reaction Past Psychological History: Depression Smoking Status: Current every day smoker Past Alcohol Use History: Abuse, Daily, Heavy Past Drug Use History: Marijuana General Exam Limitations: no limitations General appearance: alert, in no apparent distress Head exam: Present: atraumatic, normocephalic, normal inspection Eye exam: Present: normal appearance, PERRL, EOMI. Absent: scleral icterus, conjunctival injection, periorbital swelling ENT exam: Present: normal exam, mucous membranes dry Neck exam: Present: normal inspection. Absent: tenderness, meningismus, lymphadenopathy Respiratory exam: Present: respiratory distress, wheezes, accessory muscle use, decreased breath sounds, prolonged expiratory. Absent: rales, rhonchi, stridor Cardiovascular Exam: Present: regular rate, normal rhythm, normal heart sounds. Absent: systolic murmur, diastolic murmur, rubs, gallop, clicks GI/Abdominal exam: Present: soft, normal bowel sounds. Absent: distended, tenderness, guarding, rebound, rigid Extremities exam: Present: normal inspection, full ROM, normal capillary refill, other (Bilateral lower extremity edema). Absent: tenderness, pedal edema, joint swelling, calf tenderness Back exam: Present: normal inspection Neurological exam: Present: alert, oriented X3, CN II-XII intact Psychiatric exam: Present: normal affect, normal mood Skin exam: Present: warm, dry, intact, normal color. Absent: rash Course Vital Signs 10/25/20 10/25/20 10/25/20 22:23 23:16 23:31 Temperature 98.5 F Pulse Rate 82 96 96 Respiratory 18 Rate Blood Pressure 165/96 O2 Sat by Pulse 91 L Oximetry 10/26/20 10/26/20 10/26/20 01:14 06:35 07:24 Temperature 99.2 F 98.7 F Pulse Rate 99 84 94 Respiratory 18 20 Rate Blood Pressure 138/86 121/69 O2 Sat by Pulse 96 96 Oximetry 10/26/20 10/26/20 10/26/20 07:32 11:05 11:16 Temperature 97.9 F Pulse Rate 67 94 92 Respiratory 16 Rate Blood Pressure 117/75 O2 Sat by Pulse 98 Oximetry 10/26/20 10/26/20 10/26/20 11:46 15:24 15:35 Temperature Pulse Rate 101 H 106 H 104 H Respiratory 16 Rate Blood Pressure 164/90 O2 Sat by Pulse 95 Oximetry - Reevaluation(s) Reevaluation #1: Medical record is reviewed Symptoms improved here significantly in the emergency room Patient informed results and questions answered Medical Decision Making - Medical Decision Making This female DF for evaluation. Patient has multiple medical complaints but today complaining of shortness of breath weakness not feeling well history of COPD. Patient be admitted for COPD exacerbation hypoxia pending alcohol withdrawal significant bilateral lower extremity edema - Lab Data Result diagrams: 10/28/20 04:50 10/30/20 06:52 Lab Results 10/25/20 10/25/20 10/25/20 Range/Units 22:29 22:29 22:29 WBC 6.6 (3.8-10.6) k/uL RBC 3.91 L (4.30-5.90) m/uL Hgb 12.0 L (13.0-17.5) gm/dL Hct 36.8 L (39.0-53.0) % MCV 93.9 (80.0-100.0) fL MCH 30.7 (25.0-35.0) pg MCHC 32.7 (31.0-37.0) g/dL RDW 15.5 (11.5-15.5) % Plt Count 198 D (150-450) k/uL MPV 7.3 Neutrophils % 75 % Lymphocytes % 15 % Monocytes % 6 % Eosinophils % 2 % Basophils % 0 % Neutrophils # 4.9 (1.3-7.7) k/uL Lymphocytes # 1.0 (1.0-4.8) k/uL Monocytes # 0.4 (0-1.0) k/uL Eosinophils # 0.2 (0-0.7) k/uL Basophils # 0.0 (0-0.2) k/uL PT 10.5 (9.0-12.0) sec INR 1.0 (<1.2) APTT 23.2 (22.0-30.0) sec Sodium (137-145) mmol/L Potassium (3.5-5.1) mmol/L Chloride (98-107) mmol/L Carbon Dioxide (22-30) mmol/L Anion Gap mmol/L BUN (9-20) mg/dL Creatinine (0.66-1.25) mg/dL Est GFR (CKD-EPI)AfAm (>60 ml/min/1.73 sqM) Est GFR (CKD-EPI)NonAf (>60 ml/min/1.73 sqM) BUN/Creatinine Ratio (12.00-20.00) Ratio Glucose (74-99) mg/dL Calcium (8.4-10.2) mg/dL Phosphorus (2.5-4.5) mg/dL Magnesium (1.6-2.3) mg/dL Total Bilirubin (0.2-1.3) mg/dL AST (17-59) U/L ALT (4-49) U/L Alkaline Phosphatase (38-126) U/L Creatine Kinase (55-170) U/L Troponin I (0.000-0.034) ng/mL NT-Pro-B Natriuret Pep pg/mL Total Protein (6.3-8.2) g/dL Albumin (3.5-5.0) g/dL Urine Color Light Yellow Urine Appearance Clear (Clear) Urine pH 6.5 (5.0-8.0) Ur Specific [place] 1.009 (1.001-1.035) Urine Protein 1+ H (Negative) Urine Glucose (UA) Negative (Negative) Urine Ketones Negative (Negative) Urine Blood Negative (Negative) Urine Nitrite Positive (Negative) Urine Bilirubin Negative (Negative) Urine Urobilinogen <2.0 (<2.0) mg/dL Ur Leukocyte Esterase Large H (Negative) Urine RBC 13 H (0-5) /hpf Urine WBC 25 H (0-5) /hpf Ur Squamous Epith Cells <1 (0-4) /hpf Urine Mucus Rare H (None) /hpf Serum Alcohol mg/dL Coronavirus (PCR) (Not Detectd) 10/25/20 10/25/20 10/25/20 Range/Units 22:29 22:29 22:29 WBC (3.8-10.6) k/uL RBC (4.30-5.90) m/uL Hgb (13.0-17.5) gm/dL Hct (39.0-53.0) % MCV (80.0-100.0) fL MCH (25.0-35.0) pg MCHC (31.0-37.0) g/dL RDW (11.5-15.5) % Plt Count (150-450) k/uL MPV Neutrophils % % Lymphocytes % % Monocytes % % Eosinophils % % Basophils % % Neutrophils # (1.3-7.7) k/uL Lymphocytes # (1.0-4.8) k/uL Monocytes # (0-1.0) k/uL Eosinophils # (0-0.7) k/uL Basophils # (0-0.2) k/uL PT (9.0-12.0) sec INR (<1.2) APTT (22.0-30.0) sec Sodium 132 L (137-145) mmol/L Potassium 4.5 (3.5-5.1) mmol/L Chloride 104 (98-107) mmol/L Carbon Dioxide 23 (22-30) mmol/L Anion Gap 5 mmol/L BUN 14 (9-20) mg/dL Creatinine 0.52 L (0.66-1.25) mg/dL Est GFR (CKD-EPI)AfAm >90 (>60 ml/min/1.73 sqM) Est GFR (CKD-EPI)NonAf >90 (>60 ml/min/1.73 sqM) BUN/Creatinine Ratio (12.00-20.00) Ratio Glucose 92 (74-99) mg/dL Calcium 7.7 L (8.4-10.2) mg/dL Phosphorus 2.2 L (2.5-4.5) mg/dL Magnesium 1.0 L (1.6-2.3) mg/dL Total Bilirubin 0.6 (0.2-1.3) mg/dL AST 21 (17-59) U/L ALT 12 (4-49) U/L Alkaline Phosphatase 69 (38-126) U/L Creatine Kinase 37 L (55-170) U/L Troponin I <0.012 (0.000-0.034) ng/mL NT-Pro-B Natriuret Pep 3370 pg/mL Total Protein 5.3 L (6.3-8.2) g/dL Albumin 2.8 L (3.5-5.0) g/dL Urine Color Urine Appearance (Clear) Urine pH (5.0-8.0) Ur Specific [place] (1.001-1.035) Urine Protein (Negative) Urine Glucose (UA) (Negative) Urine Ketones (Negative) Urine Blood (Negative) Urine Nitrite (Negative) Urine Bilirubin (Negative) Urine Urobilinogen (<2.0) mg/dL Ur Leukocyte Esterase (Negative) Urine RBC (0-5) /hpf Urine WBC (0-5) /hpf Ur Squamous Epith Cells (0-4) /hpf Urine Mucus (None) /hpf Serum Alcohol <10 mg/dL Coronavirus (PCR) (Not Detectd) 10/25/20 10/26/20 10/27/20 Range/Units 23:26 12:33 06:25 WBC (3.8-10.6) k/uL RBC (4.30-5.90) m/uL Hgb (13.0-17.5) gm/dL Hct (39.0-53.0) % MCV (80.0-100.0) fL MCH (25.0-35.0) pg MCHC (31.0-37.0) g/dL RDW (11.5-15.5) % Plt Count (150-450) k/uL MPV Neutrophils % % Lymphocytes % % Monocytes % % Eosinophils % % Basophils % % Neutrophils # (1.3-7.7) k/uL Lymphocytes # (1.0-4.8) k/uL Monocytes # (0-1.0) k/uL Eosinophils # (0-0.7) k/uL Basophils # (0-0.2) k/uL PT (9.0-12.0) sec INR (<1.2) APTT (22.0-30.0) sec Sodium 136 (137-145) mmol/L Potassium 3.8 (3.5-5.1) mmol/L Chloride 90 L (98-107) mmol/L Carbon Dioxide 38.0 H (22-30) mmol/L Anion Gap 8.00 mmol/L BUN 23.0 (9-20) mg/dL Creatinine 0.9 (0.66-1.25) mg/dL Est GFR (CKD-EPI)AfAm 107.2 (>60 ml/min/1.73 sqM) Est GFR (CKD-EPI)NonAf 92.5 (>60 ml/min/1.73 sqM) BUN/Creatinine Ratio 25.56 H (12.00-20.00) Ratio Glucose 135 H (74-99) mg/dL Calcium 9.2 (8.4-10.2) mg/dL Phosphorus (2.5-4.5) mg/dL Magnesium 1.5 L 1.5 (1.6-2.3) mg/dL Total Bilirubin (0.2-1.3) mg/dL AST (17-59) U/L ALT (4-49) U/L Alkaline Phosphatase (38-126) U/L Creatine Kinase (55-170) U/L Troponin I (0.000-0.034) ng/mL NT-Pro-B Natriuret Pep pg/mL Total Protein (6.3-8.2) g/dL Albumin (3.5-5.0) g/dL Urine Color Urine Appearance (Clear) Urine pH (5.0-8.0) Ur Specific [place] (1.001-1.035) Urine Protein (Negative) Urine Glucose (UA) (Negative) Urine Ketones (Negative) Urine Blood (Negative) Urine Nitrite (Negative) Urine Bilirubin (Negative) Urine Urobilinogen (<2.0) mg/dL Ur Leukocyte Esterase (Negative) Urine RBC (0-5) /hpf Urine WBC (0-5) /hpf Ur Squamous Epith Cells (0-4) /hpf Urine Mucus (None) /hpf Serum Alcohol mg/dL Coronavirus (PCR) Not Detected (Not Detectd) - EKG Data -: EKG Interpreted by Me (EKG is tachycardia 1:15 QRS 146 QTc 423) - Radiology Data Radiology results: report reviewed (Chest x-rays negative for acute disease), image reviewed Disposition Clinical Impression: Alcohol use disorder, severe, dependence, Hypomagnesemia, Acute exacerbation of chronic obstructive pulmonary disease, Acute pulmonary edema, Congestive heart failure Disposition: ADMITTED IP TO THIS HOSP Condition: Fair Is patient prescribed a controlled substance at d/c from ED?: No
[2020-10-25] MEDS ORDERED: NICOTINE 21MG/24HR PATCH TRANSDERM STA (22:38)
[2020-10-25 22:43] LABS: Basophils % (A) 0 %; Eosinophils # (A) 0.2 k/uL (0-0.7); Eosinophils % (A) 2 %; HCT 36.8 % (39.0-53.0); Lymphocytes % (A) 15 %; MCH 30.7 pg (25.0-35.0); MCHC 32.7 g/dL (31.0-37.0); MCV 93.9 fL (80.0-100.0); Mean Platelet Volume 7.3; Monocytes # (A) 0.4 k/uL (0-1.0); Monocytes % (A) 6 %; Neutrophils # (A) 4.9 k/uL (1.3-7.7); Neutrophils % (A) 75 %; RBC 3.91 m/uL (4.30-5.90); RDW 15.5 % (11.5-15.5); WBC 6.6 k/uL (3.8-10.6)
[2020-10-25 22:53] LABS: Partial Thromboplastin Time 23.2 sec (22.0-30.0); Prothrombin Time 10.5 sec (9.0-12.0)
--- NOTE | 2020-10-25 22:59 | XR ---
EXAMINATION TYPE: XR chest 2V DATE OF EXAM: 10/25/2020 COMPARISON: NONE HISTORY: Cough TECHNIQUE: 2 views FINDINGS: Heart is enlarged. There is no gross heart failure. There is some coarsening of interstitia l markings. No pleural effusion seen. There is some arthritic change in the left shoulder joint. IMPRESSION: Mild cardiomegaly. Slight coarsening of interstitial markings. No obvious heart failure. There is improved aeration of the lower lobes compared to old exam.
[2020-10-25 23:01] LABS: ALT 12 U/L (4-49); AST 21 U/L (17-59); African American GFR (CKD) >90 (>60 ml/min/1.73 sqM); Albumin 2.8 g/dL (3.5-5.0); Alcohol <10 mg/dL; Alkaline Phosphatase 69 U/L (38-126); Anion Gap 5 mmol/L; Blood Urea Nitrogen 14 mg/dL (9-20); Calcium 7.7 mg/dL (8.4-10.2); Carbon Dioxide 23 mmol/L (22-30); Chloride 104 mmol/L (98-107); Creatine Kinase 37 U/L (55-170); Glucose 92 mg/dL (74-99); Non-African American GFR(CKD) >90 (>60 ml/min/1.73 sqM); Phosphorus 2.2 mg/dL (2.5-4.5); Potassium 4.5 mmol/L (3.5-5.1); Sodium 132 mmol/L (137-145); Total Bilirubin 0.6 mg/dL (0.2-1.3); Total Protein 5.3 g/dL (6.3-8.2)
[2020-10-25 23:02] LABS: Platelet Count 198 k/uL (150-450)
[2020-10-26] MEDS ORDERED: methylPREDNISolone SOD SUCCI 125 MG/2 ML VIAL IV STA (00:29)
[2020-10-26] MEDS ORDERED: LORazepam 2 MG/ML INJ IV PRN ×5 (00:30→17:26)
[2020-10-26] MEDS ORDERED: MORPHINE SULFATE 4 MG/ML SYRINGE IVP STA (00:30)
[2020-10-26] MEDS ORDERED: THIAMINE 100 MG/ML 2 ML VIAL IM STA (00:31)
[2020-10-26 01:04] LABS: Appearance,Urine Clear (Clear); Bilirubin,Urine Negative (Negative); Blood,Urine Negative (Negative); Color,Urine Light Yellow; Glucose,Urine (UA) Negative (Negative); Ketones,Urine Negative (Negative); Leukocyte Esterase,Urine Large (Negative); Mucus,Urine Rare /hpf; Nitrite,Urine Positive (Negative); PH, Urine 6.5 (5.0-8.0); Protein,Urine 1+ (Negative); RBC,Urine 13 /hpf (0-5); Specific Gravity,Urine 1.009 (1.001-1.035); Squamous Epithelial Cell,Urine <1 /hpf (0-4); Urobilinogen,Urine <2.0 mg/dL (<2.0); WBC,Urine 25 /hpf (0-5)
[2020-10-26] MEDS: FUROSEMIDE 10 MG/ML 4 ML VIAL IV SCH ×3 (01:26→16:16)
[2020-10-26] MEDS: MAGNESIUM SULFATE-D5W PMX 1 GM in DEXTROSE/WATER 1 100ML.BAG IVPB SCH ×6 (01:29→18:18)
[2020-10-26] MEDS ORDERED: LORazepam 2 MG/ML INJ IV STA (02:07)
[2020-10-26] MEDS: methylPREDNISolone SOD SUCCI 125 MG/2 ML VIAL IV SCH ×2 (06:29→11:41)
[2020-10-26] MEDS: IPRATROPIUM-ALBUTEROL 3 ML NEB INHALATION SCH ×4 (07:23→19:55)
[2020-10-26] MEDS: LORazepam 2 MG/ML INJ IV PRN ×3 (07:44→14:40)
[2020-10-26] MEDS: MORPHINE SULFATE 4 MG/ML SYRINGE IVP PRN ×3 (11:42→20:20)
[2020-10-26] MEDS: NICOTINE 14MG/24HR PATCH TRANSDERM SCH (16:16)
--- NOTE | 2020-10-26 16:38 | P.HPIM ---
History of Present Illness 60-year-old male came in with complaints of for bilateral lower extremity swelling was also coming of some shortness of breath denied any clear orthopnea or paroxysmal nocturnal dyspnea. Patient had worsening swelling which started about the week to 10 days ago, patient has elevated BNP of 3600 I was unable to appreciate any clear JVD. Patient does have history of alcohol abuse patient was discharged after his hospital patient for alcohol withdrawal on October 10 of this year since then patient stopped drinking patient was started on all call withdrawal protocol which was discontinued. Although patient did drink socially about couple days ago. Patient denied any fever chills. 6 is consistent with a significant interstitial markings without any pleural effusions. Review of Systems REVIEW OF SYSTEMS: CONSTITUTIONAL: No fever, no malaise, no fatigue. HEENT: No recent visual problems or hearing problems. Denied any sore throat. CARDIOVASCULAR: As mentioned in HPI PULMONARY: As mentioned in HPI no cough, no hemoptysis. GASTROINTESTINAL: No diarrhea, no nausea, no vomiting, no abdominal pain. NEUROLOGICAL: No headaches, no weakness, no numbness. HEMATOLOGICAL: Denies any bleeding or petechiae. GENITOURINARY: Denies any burning micturition, frequency, or urgency. MUSCULOSKELETAL/RHEUMATOLOGICAL: Denies any joint pain, swelling, or any muscle pain. ENDOCRINE: Denies any polyuria or polydipsia. The rest of the 14-point review of systems is negative. Past Medical History Past Medical History: Atrial Fibrillation, COPD, Hypertension History of Any Multi-Drug Resistant Organisms: None Reported Past Surgical History: No Surgical Hx Reported Past Anesthesia/Blood Transfusion Reactions: No Reported Reaction Past Psychological History: Depression Smoking Status: Current every day smoker Past Alcohol Use History: Abuse, Daily, Heavy Past Drug Use History: Marijuana Medications and Allergies Home Medications Medication Instructions Recorded Confirmed Type No Known Home Medications 10/26/20 10/26/20 History Allergies Allergy/AdvReac Type Severity Reaction Status Date / Time No Known Allergies Allergy Verified 10/26/20 08:32 Physical Exam Vitals: Vital Signs Temp Pulse Resp BP Pulse Ox 10/26/20 15:35 104 H 10/26/20 15:24 106 H 10/26/20 11:46 101 H 16 164/90 95 10/26/20 11:16 92 10/26/20 11:05 94 10/26/20 07:32 97.9 F 67 16 117/75 98 10/26/20 07:24 94 10/26/20 06:35 98.7 F 84 20 121/69 96 10/26/20 01:14 99.2 F 99 18 138/86 96 10/25/20 23:31 96 10/25/20 23:16 96 10/25/20 22:23 98.5 F 82 18 165/96 91 L Intake and Output 10/26/20 10/26/20 10/26/20 06:59 14:59 22:59 Output Total 1999 500 Balance -1999 - Output: Urine 1999 500 Other: # Voids 1 PHYSICAL EXAMINATION: GENERAL: The patient is alert and oriented x3, not in any acute distress. Well developed, well nourished. HEENT: Pupils are round and equally reacting to light. EOMI. No scleral icterus. No conjunctival pallor. Normocephalic, atraumatic. No pharyngeal erythema. No thyromegaly. CARDIOVASCULAR: S1 and S2 present. No murmurs, rubs, or gallops. PULMONARY: Chest is clear to auscultation, no wheezing or crackles. ABDOMEN: Soft, nontender, nondistended, normoactive bowel sounds. No palpable organomegaly. MUSCULOSKELETAL: No joint swelling or deformity. EXTREMITIES: No cyanosis, clubbing, bilateral lower extremity 2+ pitting pedal edema extending up to the mid vasquez area. NEUROLOGICAL: Gross neurological examination did not reveal any focal deficits. SKIN: No rashes. Results CBC & Chem 7: 10/25/20 22:29 10/25/20 22:29 Labs: Abnormal Lab Results - Last 24 Hours (Table) 10/25/20 10/25/20 10/25/20 Range/Units 22:29 22:29 22:29 RBC 3.91 L (4.30-5.90) m/uL Hgb 12.0 L (13.0-17.5) gm/dL Hct 36.8 L (39.0-53.0) % Sodium 132 L (137-145) mmol/L Creatinine 0.52 L (0.66-1.25) mg/dL Calcium 7.7 L (8.4-10.2) mg/dL Phosphorus 2.2 L (2.5-4.5) mg/dL Magnesium 1.0 L (1.6-2.3) mg/dL Creatine Kinase 37 L (55-170) U/L Total Protein 5.3 L (6.3-8.2) g/dL Albumin 2.8 L (3.5-5.0) g/dL Urine Protein 1+ H (Negative) Ur Leukocyte Esterase Large H (Negative) Urine RBC 13 H (0-5) /hpf Urine WBC 25 H (0-5) /hpf Urine Mucus Rare H (None) /hpf 10/26/20 Range/Units 12:33 RBC (4.30-5.90) m/uL Hgb (13.0-17.5) gm/dL Hct (39.0-53.0) % Sodium (137-145) mmol/L Creatinine (0.66-1.25) mg/dL Calcium (8.4-10.2) mg/dL Phosphorus (2.5-4.5) mg/dL Magnesium 1.5 L (1.6-2.3) mg/dL Creatine Kinase (55-170) U/L Total Protein (6.3-8.2) g/dL Albumin (3.5-5.0) g/dL Urine Protein (Negative) Ur Leukocyte Esterase (Negative) Urine RBC (0-5) /hpf Urine WBC (0-5) /hpf Urine Mucus (None) /hpf Microbiology - Last 24 Hours (Table) 10/25/20 22:29 Urine Culture - Preliminary Urine,Voided Assessment and Plan Plan: -Bilateral lower extremity edema cannot completely rule out congestive heart failure patient will be started on IV Lasix will obtain an echocardiogram 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 Patient had a normal ejection fraction but patient appears to have had some diastolic dysfunction from the echo cardiac rhythm that was done in 2019 -Hypervolemic hyponatremia: Expected to improve with IV Lasix -Hypomagnesemia magnesium will be replaced -Alcohol abuse: I do not expect any withdrawals at this time patient will be monitored with [facility] protocol will be discontinued -Patient had documented history of atrial fibrillation although patient is sinus tachycardia at this time patient is not in A. fib patient is not on any anticoagulation either.. Atrial fibrillation was not documented during his previous hospitalization -COPD without any acute exacerbation patient continues to smoke counseling was provided DVT prophylaxis with Lovenox
[2020-10-26] MEDS: THIAMINE 100 MG TAB PO SCH (17:05)
[2020-10-27] MEDS: FUROSEMIDE 10 MG/ML 4 ML VIAL IV SCH ×4 (00:12→16:19)
[2020-10-27] MEDS: MORPHINE SULFATE 4 MG/ML SYRINGE IVP PRN ×4 (00:16→23:02)
[2020-10-27] MEDS: IPRATROPIUM-ALBUTEROL 3 ML NEB INHALATION SCH ×4 (07:28→19:53)
[2020-10-27] MEDS: ENOXAPARIN 40 MG/0.4 ML SYRINGE SQ SCH (07:53)
[2020-10-27] MEDS: LORazepam 2 MG/ML INJ IV PRN ×4 (07:53→21:57)
[2020-10-27] MEDS: THIAMINE 100 MG TAB PO SCH ×2 (07:53→16:20)
[2020-10-27] MEDS: NICOTINE 14MG/24HR PATCH TRANSDERM SCH (07:53)
[2020-10-27 11:19] LABS: African American GFR (CKD) 107.2 (60.0-200.0); BUN/Creat Ratio 25.56 Ratio (12.00-20.00); Calcium 9.2 mg/dL (8.7-10.3); Magnesium 1.5 mg/dL (1.5-2.4); Non-African American GFR(CKD) 92.5 (60.0-200.0); Potassium 3.8 mmol/L (3.5-5.5)
[2020-10-27 13:24] VITALS: BMI 28.2
--- NOTE | 2020-10-27 15:42 | P.PN ---
Subjective Progress Note Date: 10/27/20 60-year-old male came in with complaints of for bilateral lower extremity swelling was also coming of some shortness of breath denied any clear orthopnea or paroxysmal nocturnal dyspnea. Patient had worsening swelling which started about the week to 10 days ago, patient has elevated BNP of 3600 I was unable to appreciate any clear JVD. Patient does have history of alcohol abuse patient was discharged after his hospital patient for alcohol withdrawal on October 10 of this year since then patient stopped drinking patient was started on all call withdrawal protocol which was discontinued. Although patient did drink socially about couple days ago. Patient denied any fever chills. Chest x-ray is cons istent with a significant interstitial markings without any pleural effusions. 10/27/2020 Patient is seen and evaluated and follow-up continues to have some shortness of breath and is being closely monitored. 2-D echo was ordered and currently pending. Patient continues on IV Lasix for lower extremity edema and will continue at this time. Sodium today is 136 with a potassium of 3.8 and current creatinine is 0.9 and will repeat and monitor closely. Repeat magnesium is 1.5 and will replace. Nursing staff and witnessed on exam at the bedside patient is exhibiting signs of acute alcohol withdrawal and will continue with CIWA protocol and monitor closely. Patient continues to be weak and evaluated by PT/OT therapy and will be going to [facility] for continued strength and mobility on discharge. Patient is currently 96% oxygen saturation on 2 L via nasal cannula and discussed with nursing staff about discontinuing or weaning FiO2 as tolerated. Patient states he uses inhalers in the outpatient setting although does not wear oxygen at home. Review of systems: Constitutional: Reports of fatigue, no reports of fever, or chills Cardiovascular: No reports of chest pain or palpitations Respiratory: reports of shortness of breath and cough GI: No reports of nausea, vomiting, or diarrhea : No reports of dysuria or retention Neurovascular: Reports generalized weakness and inability to walk steadily and safely All medications have been reviewed Objective - Vital Signs Vital signs: Vital Signs Temp 97.3 F L 10/27/20 07:16 Pulse 98 10/27/20 11:18 Resp 17 10/27/20 07:16 BP 158/95 10/27/20 07:16 Pulse Ox 97 10/27/20 07:16 Intake & Output 10/26/20 10/27/20 10/27/20 18:59 06:59 18:59 Intake Total 118 Output Total 2500 1150 250 Balance -2500 -1150 -132 Weight 99.79 kg 99.79 kg Intake: Oral 118 Output: Urine 2500 1150 250 Other: Voiding Method Urinal # Voids 1 1 - Exam GENERAL: The patient is alert and oriented x3, not in any acute distress. Well developed, well nourished. HEENT: Pupils are round and equally reacting to light. EOMI. No scleral icterus. No conjunctival pallor. Normocephalic, atraumatic. No pharyngeal erythema. No thyromegaly. CARDIOVASCULAR: S1 and S2 present. No murmurs, rubs, or gallops. PULMONARY: diminished with some scattered ronchi noted ABDOMEN: Soft, nontender, nondistended, normoactive bowel sounds. No palpable organomegaly. MUSCULOSKELETAL: No joint swelling or deformity. EXTREMITIES: No cyanosis, clubbing, bilateral lower extremity 2+ pitting pedal edema extending up to the mid vasquez area. Slightly improved although some edema still noted will add compression stockings NEUROLOGICAL: Gross neurological examination did not reveal any focal deficits. SKIN: No rashes. - Labs CBC & Chem 7: 10/25/20 22:29 10/27/20 06:25 Labs: Abnormal Lab Results - Last 24 Hours (Table) 10/27/20 Range/Units 06:25 Chloride 90 L (96-109) mmol/L Carbon Dioxide 38.0 H (21.6-31.8) mmol/L BUN/Creatinine Ratio 25.56 H (12.00-20.00) Ratio Glucose 135 H (70-110) mg/dL Microbiology - Last 24 Hours (Table) 10/25/20 22:29 Urine Culture - Preliminary Urine,Voided Coagulase Negative Staph Assessment and Plan Assessment: -Bilateral lower extremity edema cannot completely rule out congestive heart f ailure. Patient continues on IV Lasix and will continue as you're extremity edema continues although is improving and will also order compression stockings and instructed patient to elevate while at rest. Echo was done although pending report. 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 Patient had a normal ejection fraction but patient appears to have had some diastolic dysfunction from the echo cardiogram that was done in 2019 -Hypervolemic hyponatremia: Expected to improve with IV Lasix, improving currently 136 and will repeat labs -Hypomagnesemia magnesium will be replaced. Continues to be 1.5 and will replace and repeat a.m. labs -Alcohol abuse: Will continue with CIWA protocol as patient was exhibiting some signs of withdrawal and will monitor closely. -Patient had documented history of atrial fibrillation although patient is sinus tachycardia at this time patient is not in A. fib patient is not on any anticoagulation either.. Atrial fibrillation was not documented during his previous hospitalization -COPD without any acute exacerbation patient continues to smoke counseling was provided -DVT prophylaxis with Lovenox Plan: Continue with current medications and continue with IV Lasix while awaiting for 2-D echo as patient continues to have lower extremity edema although slightly improved. Recommend compression stockings and/or Prieto wraps to bilateral lower extremities from the toes up to the knees and elevating while at rest. Kidney functions within normal limits and will repeat and monitor closely. Patient was seen and evaluated by physical therapy recommending ECF for continued PT/OT therapy and social work following working on accepting facility. Possible discharge in 24-48 hours.
[2020-10-27] MEDS: MAGNESIUM SULFATE-D5W PMX 1 GM in DEXTROSE/WATER 1 100ML.BAG IVPB SCH ×2 (16:19→17:33)
--- NOTE | 2020-10-27 17:01 | ECHOF ---
Referral Reason:CHF MEASUREMENTS -------- HEIGHT: 182.9 cm WEIGHT: 99.8 kg BP: 158/95 IVSd: 1.3 cm (0.6 - 1.1) LVIDd: 5.4 cm (3.9 - 5.3) LVPWd: 1.7 cm (0.6 - 1.1) EDV(Teich): 139 ml IVSs: 1.9 cm LVIDs: 3.7 cm LVPWs: 1.9 cm %IVS Thck: 45 % ESV(Teich): 57 ml EF(Teich): 59 % %FS: 31 % SV(Teich): 81 ml LA Diam: 4.1 cm (2.7 - 3.8) RVIDd: 4.3 cm (< 3.3) Ao Diam: 3.3 cm (2.0 - 3.7) LA Diam: 4.7 cm (2.7 - 3.8) AV Cusp: 1.9 cm (1.5 - 2.6) EPSS: 1.0 cm TR Vmax: 3.56 m/s TR maxP.81 mmHg RAP: 10.00 mmHg RVSP: 60.81 mmHg MV EF SLOPE: 100.99 mm/s (70 - 150) MV EXCURSION: 26.79 mm (> 18.000) FINDINGS -------- Atrial fibrillation. This was a technically good study. The left ventricular size is normal. There is mild concentric left ventricular hypertrophy. Overa ll left ventricular systolic function is low-normal with, an EF between 50 - 55 %. The right ventricle is moderately enlarged. The left atrium is mildly dilated. The right atrial size is normal. There is mild aortic valve sclerosis. There is no evidence of aortic regurgitation. Mild mitral regurgitation is present. Mild tricuspid regurgitation present. There is moderate pulmonary hypertension. The right ventric ular systolic pressure, as measured by Doppler, is 60.81mmHg. There is no pulmonic regurgitation present. The aortic root size is normal. There is no pericardial effusion. CONCLUSIONS -------- 1. The left ventricular size is normal. 2. There is mild concentric left ventricular hypertrophy. 3. Overall left ventricular systolic function is low-normal with, an EF between 50 - 55 %. 4. The right ventricle is moderately enlarged. 5. The left atrium is mildly dilated. 6. The right atrial size is normal. 7. There is mild aortic valve sclerosis. 8. Mild mitral regurgitation is present. 9. Mild tricuspid regurgitation present. 10. There is moderate pulmonary hypertension. 11. The right ventricular systolic pressure, as measured by Doppler, is 60.81mmHg. 12. There is no pulmonic regurgitation present. 13. The aortic root size is normal. 14. There is no pericardial effusion. TIE BINDER: Lisbeth Thurman RDCS
[2020-10-27] MEDS: DILTIAZEM ORAL 60 MG TAB PO SCH (20:35)
[2020-10-28] MEDS: FUROSEMIDE 10 MG/ML 4 ML VIAL IV SCH ×2 (00:16→08:03)
[2020-10-28] MEDS: LORazepam 2 MG/ML INJ IV PRN ×4 (00:16→14:00)
[2020-10-28 05:33] LABS: Basophils % (A) 0 %; Eosinophils # (A) 0.1 k/uL (0-0.7); Eosinophils % (A) 1 %; HGB 11.7 gm/dL (13.0-17.5); Lymphocytes # (A) 1.2 k/uL (1.0-4.8); Lymphocytes % (A) 17 %; MCH 30.6 pg (25.0-35.0); MCHC 32.5 g/dL (31.0-37.0); Mean Platelet Volume 7.4; Monocytes # (A) 0.5 k/uL (0-1.0); Monocytes % (A) 7 %; Neutrophils # (A) 5.1 k/uL (1.3-7.7); Neutrophils % (A) 74 %; Platelet Count 236 k/uL (150-450); RBC 3.83 m/uL (4.30-5.90); RDW 15.5 % (11.5-15.5); WBC 6.9 k/uL (3.8-10.6)
[2020-10-28 05:41] LABS: African American GFR (CKD) >90 (>60 ml/min/1.73 sqM); Blood Urea Nitrogen 31 mg/dL (9-20); Calcium 8.9 mg/dL (8.4-10.2); Chloride 87 mmol/L (98-107); Glucose 98 mg/dL (74-99); Magnesium 1.4 mg/dL (1.6-2.3); Non-African American GFR(CKD) >90 (>60 ml/min/1.73 sqM); Potassium 3.6 mmol/L (3.5-5.1); Sodium 131 mmol/L (137-145)
[2020-10-28] MEDS: MORPHINE SULFATE 4 MG/ML SYRINGE IVP PRN ×2 (05:44→10:48)
[2020-10-28 05:47] LABS: Anion Gap 6 mmol/L; Carbon Dioxide 38 mmol/L (22-30)
[2020-10-28] MEDS: IPRATROPIUM-ALBUTEROL 3 ML NEB INHALATION SCH ×4 (07:23→19:55)
[2020-10-28] MEDS: DILTIAZEM ORAL 60 MG TAB PO SCH ×3 (08:03→21:07)
[2020-10-28] MEDS: ENOXAPARIN 40 MG/0.4 ML SYRINGE SQ SCH (08:03)
[2020-10-28] MEDS: THIAMINE 100 MG TAB PO SCH ×2 (08:03→17:27)
[2020-10-28] MEDS: NICOTINE 14MG/24HR PATCH TRANSDERM SCH (08:04)
[2020-10-28] MEDS ORDERED: Magnesium Replacement Protocol 1 EACH MISC MISCELLANE PRN (09:06)
[2020-10-28] MEDS: MAGNESIUM SULFATE-D5W PMX 1 GM in DEXTROSE/WATER 1 100ML.BAG IVPB SCH ×2 (09:23→10:37)
--- NOTE | 2020-10-28 13:54 | P.CRDCN ---
History of Present Illness History of present illness: HISTORY OF PRESENTING ILLNESS This is a pleasant 60-year-old male past medical history significant for hypertension, atrial fibrillation/atrial flutter, alcohol abuse, COPD. He used to follow with Dr. Min last seen in February 2016. He does not follow with a new process steward. We have been asked to see in consultation for atrial fibrillation with rapid ventricular response. In 2015, patient presented to [facility] and was found to be in atrial flutter with variable block. That was a new diagnosis for patient. Patient was started on Eliquis and by mouth Cardizem. During that time he underwent an echocardiogram showed normal LV function. Patient presents to the emergency department with complaints of bilateral lower extremity swelling and shortness of breath. He was also exhibiting palpitations, lightheadedness, dizziness. He states he was feeling weak and his heart was "doing weird things". He denies chest pain, symptoms of orthopnea or PND, syncope, lightheadedness, dizziness. He denies history of diabetes, stroke, VA. He continues to drink vodka 1/2 gallon daily. Current every day smoker. He currently does not take any cardiac medications at home. DIAGNOSTICS EKG reveals atrial fibrillation with rapid ventricular response, heart rate 115, Right bundle branch block. Previous EKG in 2016 revealed atrial flutter right bundle branch block. In 2019 patient's EKG is also in atrial fibrillation EKG this morning revealed atrial fibrillation with rapid ventricular response, right bundle-branch block, heart rate 113 Telemetry tracings indicate atrial fibrillation HR 90s this morning, overnight patient in atrial fibrillation with RVR HR 130s Echocardiogram 10/27/2020 - EF 50-55%, RV is mildly enlarged, left atrium is mildly dilated, mild mitral regurgitation, mild tricuspid regurgitation, moderate pulmonary hypertension with an RVSP of 60 mmHg. Chest xray slight coarsening of interstitial markings, no obvious heart failure Laboratory reviewed, troponin negative 1, WBC 6.9, hemoglobin 11.7, platelets 236, sodium 131, potassium 3.6, serum 0.90, magnesium 1.0, proBNP 3370, COVID-19 negative, serum alcohol negative REVIEW OF SYSTEMS At the time of my exam: CONSTITUTIONAL: Denies fever or chills. CARDIOVASCULAR: +shortness of breathe +palpitations Denies chest pain,, orthopnea, PND RESPIRATORY: Denies cough. GASTROINTESTINAL: Denies abdominal pain, diarrhea, constipation, nausea or vomiting. MUSCULOSKELETAL: Denies myalgias. +lower extremity edema NEUROLOGIC: Denies numbness, tingling, headacbe or weakness. ENDOCRINE: Denies fatigue, weight change, polydipsia or polyurina. GENITOURINARY: Denies burning, hematuria or urgency with micturation. HEMATOLOGIC: Denies history of anemia or bleeding. PHYSICAL EXAMINATION CONSTITUTIONAL: No apparent distress. HEENT: Head is normocephalic. Pupils are equal, round. Sclerae anicteric. Mucous membranes of the mouth are moist. No JVD. No carotid bruit. CHEST EXAMINATION: Lungs are clear to auscultation. No chest wall tenderness is noted on palpation or with deep breathing. HEART EXAMINATION: Regular rate and rhythm. S1, S2 heard. No murmurs, gallops or rub. ABDOMEN: Soft, nontender. Positive bowel sounds. EXTREMITIES: 2+ peripheral pulses, 2+ bilateral pitting extremity edema and no calf tenderness. SKIN: intact NEUROLOGIC EXAMINATION: Patient is awake, alert and oriented x3. ASSESSMENT Atrial fibrillation with RVR- most likely chronic persistent - was previously on PO Cardizem and PO Eliquis 2.5mg BID -[id number] score 1 Bilateral lower extremity edema Alcohol Dependence COPD PLAN -Obtain 2D echocardiogram -Obtain orthostatics- which were negative -Start Eliquis 2.5mg BID - per case management this is 100% covered -Continue Cardizem 60mg TID -Alcohol cessation discussed with patient and highly encouraged. -Further recommendations based on clinical course Nurse Practitioner note has been reviewed, I agree with a documented findings a nd plan of care. Patient was seen and examined. Past Medical History Past Medical History: Atrial Fibrillation, COPD, Hypertension History of Any Multi-Drug Resistant Organisms: None Reported Past Surgical History: No Surgical Hx Reported Past Anesthesia/Blood Transfusion Reactions: No Reported Reaction Past Psychological History: Depression Smoking Status: Current every day smoker Past Alcohol Use History: Abuse, Daily, Heavy Additional Past Alcohol Use History / Comment(s): Patient states he drinks a half gallon of vodka daily Past Drug Use History: Marijuana Medications and Allergies Home Medications Medication Instructions Recorded Confirmed Type Apixaban [Eliquis] 2.5 mg PO BID 30 Days #60 tablet 10/28/20 Rx Allergies Allergy/AdvReac Type Severity Reaction Status Date / Time No Known Allergies Allergy Verified 10/26/20 08:32 Physical Exam Vitals: Vital Signs Temp Pulse Pulse Pulse Pulse Pulse Pulse 10/28/20 11:36 101 H 10/28/20 11:24 101 H 10/28/20 10:52 101 H 109 H 97 10/28/20 08:00 10/28/20 07:38 100 10/28/20 07:26 98 10/28/20 06:55 97.9 F 103 H 10/28/20 01:39 97.5 F L 97 10/28/20 00:14 76 10/27/20 20:33 122 H 10/27/20 19:55 118 H 10/27/20 19:53 84 10/27/20 19:14 97.4 F L 95 10/27/20 15:28 90 10/27/20 15:18 94 10/27/20 14:00 97.6 F 106 H Resp BP BP BP BP Pulse Ox 10/28/20 11:36 10/28/20 11:24 10/28/20 10:52 106/69 110/69 113/67 10/28/20 08:00 16 10/28/20 07:38 10/28/20 07:26 92 L 10/28/20 06:55 16 132/67 93 L 10/28/20 01:39 18 124/67 98 10/28/20 00:14 148/83 10/27/20 20:33 149/83 10/27/20 19:55 10/27/20 19:53 10/27/20 19:14 16 131/89 95 10/27/20 15:28 10/27/20 15:18 10/27/20 14:00 20 124/65 96 Intake and Output 10/27/20 10/28/20 10/28/20 22:59 06:59 14:59 Intake Total 200 200 Output Total 400 350 350 Balance -200 -350 -150 Intake: IV 200 Magnesium Sulfate-D5w Pmx 200 1 gm In Dextrose/Water 1 100ml.bag @ 100 mls/hr IVPB Q1H [facility] Rx#: [id number] Oral 200 Output: Urine 400 350 350 Other: Voiding Method Toilet Urinal # Voids 1 2 Results 10/28/20 04:50 10/28/20 04:50 CBC 10/28/20 Range/Units 04:50 WBC 6.9 (3.8-10.6) k/uL RBC 3.83 L (4.30-5.90) m/uL Hgb 11.7 L (13.0-17.5) gm/dL Hct 36.0 L (39.0-53.0) % Plt Count 236 (150-450) k/uL Comprehensive Metabolic Panel 10/28/20 Range/Units 04:50 Sodium 131 L (137-145) mmol/L Potassium 3.6 (3.5-5.1) mmol/L Chloride 87 L (98-107) mmol/L Carbon Dioxide 38 H (22-30) mmol/L BUN 31 H (9-20) mg/dL Creatinine 0.90 (0.66-1.25) mg/dL Glucose 98 (74-99) mg/dL Calcium 8.9 (8.4-10.2) mg/dL Current Medications Generic Name Dose Route Start Last Admin Trade Name Freq PRN Reason Stop Dose Admin Hydrocodone Bitart/Acetaminophen 1 each 10/28/20 11:47 Hydrocodone/Apap 5-325mg 1 Each Tab PO Q6HR PRN Pain Albuterol/Ipratropium 3 ml 10/26/20 08:00 10/28/20 11:23 Ipratropium-Albuterol 3 Ml Neb INHALATION 3 ml RT-QID [facility] Administration Apixaban 2.5 mg 10/28/20 21:00 Apixaban 2.5 Mg Tablet PO BID [facility] Diltiazem HCl 60 mg 10/27/20 20:17 10/28/20 08:03 Diltiazem Oral 60 Mg Tab PO 60 mg TID [facility] Administration Lorazepam 1 mg 10/26/20 17:26 10/28/20 08:04 Lorazepam 2 Mg/Ml Inj IV 1 mg Q2HR PRN Administration CIWA 8 or 9 Lorazepam 1 mg 10/26/20 17:26 Lorazepam 2 Mg/Ml Inj IV Q1HR PRN CIWA 10 to 15 Lorazepam 2 mg 10/26/20 17:26 Lorazepam 2 Mg/Ml Inj IV 10/28/20 17:26 Q10M PRN CIWA 16 or higher Miscellaneous Information 1 each 10/28/20 09:06 Magnesium Replacement Protocol 1 Each Misc MISCELLANE DAILY PRN Per Protocol Protocol Nicotine 1 patch 10/26/20 12:15 10/28/20 08:04 Nicotine 14mg/24hr Patch TRANSDERM 1 patch DAILY [facility] Administration Thiamine HCl 100 mg 10/26/20 17:30 10/28/20 08:03 Thiamine 100 Mg Tab PO 100 mg BID-W/MEALS [facility] Administration Intake and Output 10/27/20 10/28/20 10/28/20 22:59 06:59 14:59 Intake Total 200 200 Output Total 400 350 350 Balance -200 -350 -150 Intake: IV 200 Magnesium Sulfate-D5w Pmx 200 1 gm In Dextrose/Water 1 100ml.bag @ 100 mls/hr IVPB Q1H [facility] Rx#: [id number] Oral 200 Output: Urine 400 350 350 Other: Voiding Method Toilet Urinal # Voids 1 2 10/28/20 04:50 10/28/20 04:50
--- NOTE | 2020-10-28 14:50 | P.PN ---
Subjective Progress Note Date: 10/28/20 60-year-old male came in with complaints of for bilateral lower extremity swelling was also coming of some shortness of breath denied any clear orthopnea or paroxysmal nocturnal dyspnea. Patient had worsening swelling which started about the week to 10 days ago, patient has elevated BNP of 3600 I was unable to appreciate any clear JVD. Patient does have history of alcohol abuse patient was discharged after his hospital patient for alcohol withdrawal on October 10 of this year since then patient stopped drinking patient was started on all call withdrawal protocol which was discontinued. Although patient did drink socially about couple days ago. Patient denied any fever chills. Chest x-ray is cons istent with a significant interstitial markings without any pleural effusions. 10/27/2020 Patient is seen and evaluated and follow-up continues to have some shortness of breath and is being closely monitored. 2-D echo was ordered and currently pending. Patient continues on IV Lasix for lower extremity edema and will continue at this time. Sodium today is 136 with a potassium of 3.8 and current creatinine is 0.9 and will repeat and monitor closely. Repeat magnesium is 1.5 and will replace. Nursing staff and witnessed on exam at the bedside patient is exhibiting signs of acute alcohol withdrawal and will continue with CIWA protocol and monitor closely. Patient continues to be weak and evaluated by PT/OT therapy and will be going to ECF for continued strength and mobility on discharge. Patient is currently 96% oxygen saturation on 2 L via nasal cannula and discussed with nursing staff about discontinuing or weaning FiO2 as tolerated. Patient states he uses inhalers in the outpatient setting although does not wear oxygen at home. 10/28/2020 Patient is seen in follow-up this morning lethargic although arousable stating he continues to have lower extremity pain with inability to walk. Is requesting morphine and we'll transition to oral as he will likely be going to ECF once stabilized. Patient is having some shortness of breath today and currently maintained on 2-4 L of oxygen via nasal cannula. Oxygen saturation is 98% on 4 L and discussed with nursing staff about weaning as tolerated. Patient's sodium 131 with a potassium of 3.6 and creatinine is 0.9 and will discontinue IV Lasix and monitor closely and will likely require oral Lasix on discharge. Bilateral lower extremity significantly improved and suggested to continue with compression stockings. Review of systems: Constitutional: Reports of fatigue, no reports of fever, or chills Cardiovascular: No reports of chest pain or palpitations Respiratory: reports of shortness of breath and cough GI: No reports of nausea, vomiting, or diarrhea : No reports of dysuria or retention Neurovascular: Reports generalized weakness and inability to walk steadily and safely All medications have been reviewed Objective - Vital Signs Vital signs: Vital Signs Temp 97.9 F 10/28/20 06:55 Pulse 101 H 10/28/20 11:36 Resp 16 10/28/20 08:00 BP 113/67 10/28/20 10:52 Pulse Ox 92 L 10/28/20 07:26 Intake & Output 10/27/20 10/28/20 10/28/20 18:59 06:59 18:59 Intake Total 554 200 Output Total 775 750 350 Balance -221 -750 -150 Weight 99.79 kg Intake: IV 200 Magnesium Sulfate-D5w Pmx 200 1 gm In Dextrose/Water 1 100ml.bag @ 100 mls/hr IVPB Q1H [facility] Rx#: [id number] Oral 554 Output: Urine 775 750 350 Other: Voiding Method Toilet Urinal # Voids 1 2 - Exam GENERAL: The patient is asleep although arousable, alert and oriented x3, not in any acute distress. Well developed, well nourished. HEENT: Pupils are round and equally reacting to light. EOMI. No scleral icterus. No conjunctival pallor. Normocephalic, atraumatic. No pharyngeal erythema. No thyromegaly. CARDIOVASCULAR: S1 and S2 present. No murmurs, rubs, or gallops. PULMONARY: diminished with some scattered ronchi noted ABDOMEN: Soft, nontender, nondistended, normoactive bowel sounds. No palpable organomegaly. MUSCULOSKELETAL: No joint swelling or deformity. EXTREMITIES: No cyanosis, clubbing, bilateral lower extremity edema much improved NEUROLOGICAL: Gross neurological examination did not reveal any focal deficits. SKIN: No rashes. - Labs CBC & Chem 7: 10/28/20 04:50 10/28/20 04:50 Labs: Abnormal Lab Results - Last 24 Hours (Table) 10/28/20 10/28/20 Range/Units 04:50 04:50 RBC 3.83 L (4.30-5.90) m/uL Hgb 11.7 L (13.0-17.5) gm/dL Hct 36.0 L (39.0-53.0) % Sodium 131 L (137-145) mmol/L Chloride 87 L (98-107) mmol/L Carbon Dioxide 38 H (22-30) mmol/L BUN 31 H (9-20) mg/dL Magnesium 1.4 L (1.6-2.3) mg/dL Microbiology - Last 24 Hours (Table) 10/25/20 22:29 Urine Culture - Preliminary Urine,Voided Coagulase Negative Staph Assessment and Plan Assessment: -Bilateral lower extremity edema cannot completely rule out congestive heart failure. 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 Discontinued IV Lasix and will continue to monitor closely with compression stockings as edema has significantly improved and will consider oral Lasix on discharge. Echo shows an EF of 50-55% with LV systolic function low to normal -Atrial fibrillation with rapid ventricular rate; cardiology evaluated the patient and resumed Cardizem and also verified coverage and patient was started on Eliquis. Most likely chronic atrial fibrillation -Hypervolemic hyponatremia: Sodium is 131 today and discontinued IV Lasix -Hypomagnesemia magnesium will be replaced. Repeat magnesium is 1.4 and will replace and start magnesium supplement with repeat labs in the morning. -Alcohol abuse: Will continue with CIWA protocol as patient was exhibiting some signs of withdrawal and will monitor closely. We'll transition to oral Ativan as he requests Ativan frequently per nursing staff -COPD without any acute exacerbation patient continues to smoke counseling was provided -DVT prophylaxis with Eliquis Plan: Continue with current medications and continue to monitor. Continue telemetry as patient was A. fib with RVR last night and restarted on Cardizem an anticoagulant. Cardiology evaluated the patient. Discontinued IV Lasix his sodium is worsening and will consider oral Lasix on discharge. Recommend to continue with compression stockings and/or Prieto wraps to bilateral lower extremities from the toes up to the knees and elevating while at rest. Bilateral lower extremity swelling significantly improved. Wean FiO2 as tolerated. Social work following this patient will be going to [facility] for continued PT/OT therapy. Possible discharge in 24-48 hours.
[2020-10-28] MEDS: HYDROcodone/APAP 5-325MG 1 EACH TAB PO PRN ×2 (15:15→21:10)
[2020-10-28] MEDS: LORazepam 1 MG TAB PO PRN (17:27)
[2020-10-28] MEDS ORDERED: APIXABAN 2.5 MG TABLET PO SCH (21:00)
[2020-10-28] MEDS ORDERED: APIXABAN 5 MG TAB PO SCH (21:00)
[2020-10-28] MEDS: APIXABAN 2.5 MG TABLET PO SCH (21:07)
[2020-10-29] MEDS: LORazepam 1 MG TAB PO PRN ×3 (00:41→18:08)
[2020-10-29] MEDS: LORazepam 2 MG/ML INJ IV PRN (05:04)
[2020-10-29 06:32] LABS: African American GFR (CKD) >90 (>60 ml/min/1.73 sqM); Anion Gap 2 mmol/L; Blood Urea Nitrogen 28 mg/dL (9-20); Calcium 8.7 mg/dL (8.4-10.2); Carbon Dioxide 39 mmol/L (22-30); Chloride 89 mmol/L (98-107); Glucose 98 mg/dL (74-99); Magnesium 1.5 mg/dL (1.6-2.3); Non-African American GFR(CKD) >90 (>60 ml/min/1.73 sqM); Sodium 130 mmol/L (137-145)
[2020-10-29] MEDS: DILTIAZEM ORAL 60 MG TAB PO SCH (07:59)
[2020-10-29] MEDS: APIXABAN 2.5 MG TABLET PO SCH ×2 (07:59→19:52)
[2020-10-29] MEDS: THIAMINE 100 MG TAB PO SCH ×2 (07:59→18:08)
[2020-10-29] MEDS: NICOTINE 14MG/24HR PATCH TRANSDERM SCH (07:59)
[2020-10-29] MEDS: HYDROcodone/APAP 5-325MG 1 EACH TAB PO PRN ×3 (07:59→20:47)
[2020-10-29] MEDS: IPRATROPIUM-ALBUTEROL 3 ML NEB INHALATION SCH ×4 (08:07→19:57)
[2020-10-29] MEDS ORDERED: Magnesium Replacement Protocol 1 EACH MISC MISCELLANE PRN (10:57)
[2020-10-29] MEDS: MAGNESIUM SULFATE-D5W PMX 1 GM in DEXTROSE/WATER 1 100ML.BAG IVPB SCH ×2 (11:38→13:20)
[2020-10-29] MEDS: DILTIAZEM CD 180 MG CAP.ER.24H PO SCH (14:46)
--- NOTE | 2020-10-29 14:52 | P.PN ---
Subjective HISTORY OF PRESENTING ILLNESS This is a pleasant 60-year-old male past medical history significant for hypertension, atrial fibrillation/atrial flutter, alcohol abuse, COPD. He used to follow with Dr. Min last seen in February 2016. 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 We have been asked to see in consultation for atrial fibrillation with rapid ventricular response. In 2015, patient presented to [facility] and was found to be in atrial flutter with variable block. That was a new diagnosis for patient. Patient was started on Eliquis and by mouth Cardizem. During that time he underwent an echocardiogram showed normal LV function. Patient presents to the emergency department with complaints of bilateral lower extremity swelling and shortness of breath. He was also exhibiting palpitations, lightheadedness, dizziness. He states he was feeling weak and his heart was "doing weird things". He denies chest pain, symptoms of orthopnea or PND, syncope, lightheadedness, dizziness. He denies history of diabetes, stroke, ND. He continues to drink vodka 1/2 gallon daily. Current every day smoker. He currently does not take any cardiac medications at home. DIAGNOSTICS EKG reveals atrial fibrillation with rapid ventricular response, heart rate 115, Right bundle branch block. Previous EKG in 2016 revealed atrial flutter right bundle branch block. In 2018 patient's EKG is also in atrial fibrillation EKG 10/28 morning revealed atrial fibrillation with rapid ventricular response, right bundle-branch block, heart rate 113 Echocardiogram 10/27/2020 - EF 50-55%, RV is mildly enlarged, left atrium is mildly dilated, mild mitral regurgitation, mild tricuspid regurgitation, moderate pulmonary hypertension with an RVSP of 60 mmHg. Chest xray slight coarsening of interstitial markings, no obvious heart failure 10/29/2020: Patient seen and examined at bedside. No acute distress. Has intermittent chest palpitations. Denies shortness of breath, chest pain. Telemetry tracings indicate atrial fibrillation HR 80s-100. No episodes of atrial fibrillation with RVR overnight or this morning. Patient currently being maintained on Eliquis 2.5mg BID, Cardizem 60mg TID. Laboratory reviewed, sodium 130, potassium 4.0 creatinine 0.87 magnesium 1.5 PHYSICAL EXAMINATION BP 107/69 HR 80s-90s CONSTITUTIONAL: No apparent distress. HEENT: Head is normocephalic. No JVD. No carotid bruit. CHEST EXAMINATION: Lungs are clear to auscultation. No chest wall tenderness is noted on palpation or with deep breathing. HEART EXAMINATION: Irregular rate and rhythm. S1, S2 heard. No murmurs, gallops or rub. ABDOMEN: Soft, nontender. Positive bowel sounds. EXTREMITIES: 2+ peripheral pulses, no bilateral extremity edema NEUROLOGIC EXAMINATION: Patient is awake, alert and oriented x3. ASSESSMENT Atrial fibrillation with RVR- most likely chronic persistent - was previously on PO Cardizem and PO Eliquis 2.5mg BID -[id number] score 1 Bilateral lower extremity edema Alcohol Dependence COPD PLAN Continue Eliquis 2.5mg BID - per case management this is 100% covered Transition to Cardizem 180mg Daily Alcohol cessation discussed with patient and highly encouraged. Further recommendations based on clinical course Nurse Practitioner note has been reviewed, I agree with a documented findings and plan of care. Patient was seen and examined. Objective - Vital Signs Vital signs: Vital Signs Temp 97.6 F 10/29/20 07:40 Pulse 88 10/29/20 11:48 Resp 16 10/29/20 11:48 BP 153/84 10/29/20 07:40 Pulse Ox 98 10/29/20 08:08 Intake & Output 10/28/20 10/29/20 10/29/20 18:59 06:59 18:59 Intake Total 540 236 Output Total 550 1175 1300 Balance -10 -1175 -1064 Intake: IV 200 Magnesium Sulfate-D5w Pmx 200 1 gm In Dextrose/Water 1 100ml.bag @ 100 mls/hr IVPB Q1H [facility] Rx#: [id number] Oral 340 236 Output: Urine 550 1175 1300 Other: Voiding Method Urinal Urinal # Voids 2 2 - Labs CBC & Chem 7: 10/28/20 04:50 10/29/20 06:00 Labs: Abnormal Lab Results - Last 24 Hours (Table) 10/29/20 Range/Units 06:00 Sodium 130 L (137-145) mmol/L Chloride 89 L (98-107) mmol/L Carbon Dioxide 39 H (22-30) mmol/L BUN 28 H (9-20) mg/dL Magnesium 1.5 L (1.6-2.3) mg/dL Microbiology - Last 24 Hours (Table) 10/25/20 22:29 Urine Culture - Final Urine,Voided Staphylococcus epidermidis
--- NOTE | 2020-10-29 16:56 | P.PN ---
Subjective Progress Note Date: 10/29/20 60-year-old male came in with complaints of for bilateral lower extremity swelling was also coming of some shortness of breath denied any clear orthopnea or paroxysmal nocturnal dyspnea. Patient had worsening swelling which started about the week to 10 days ago, patient has elevated BNP of 3600 I was unable to appreciate any clear JVD. Patient does have history of alcohol abuse patient was discharged after his hospital patient for alcohol withdrawal on October 10 of this year since then patient stopped drinking patient was started on all call withdrawal protocol which was discontinued. Although patient did drink socially about couple days ago. Patient denied any fever chills. Chest x-ray is cons istent with a significant interstitial markings without any pleural effusions. 10/27/2020 Patient is seen and evaluated and follow-up continues to have some shortness of breath and is being closely monitored. 2-D echo was ordered and currently pending. Patient continues on IV Lasix for lower extremity edema and will continue at this time. Sodium today is 136 with a potassium of 3.8 and current creatinine is 0.9 and will repeat and monitor closely. Repeat magnesium is 1.5 and will replace. Nursing staff and witnessed on exam at the bedside patient is exhibiting signs of acute alcohol withdrawal and will continue with CIWA protocol and monitor closely. Patient continues to be weak and evaluated by PT/OT therapy and will be going to ECF for continued strength and mobility on discharge. Patient is currently 96% oxygen saturation on 2 L via nasal cannula and discussed with nursing staff about discontinuing or weaning FiO2 as tolerated. Patient states he uses inhalers in the outpatient setting although does not wear oxygen at home. 10/28/2020 Patient is seen in follow-up this morning lethargic although arousable stating he continues to have lower extremity pain with inability to walk. Is requesting morphine and we'll transition to oral as he will likely be going to ECF once stabilized. Patient is having some shortness of breath today and currently maintained on 2-4 L of oxygen via nasal cannula. Oxygen saturation is 98% on 4 L and discussed with nursing staff about weaning as tolerated. Patient's sodium 131 with a potassium of 3.6 and creatinine is 0.9 and will discontinue IV Lasix and monitor closely and will likely require oral Lasix on discharge. Bilateral lower extremity significantly improved and suggested to continue with compression stockings. 10/29/2020 Patient is seen in follow-up continues to be lethargic although easily arousable. Patient continues to be on 4 L of oxygen and his oxygen saturation is 99% and will discuss again with nursing staff about weaning FiO2 as tolerated. Sodium is 130 today with a potassium of 4.0 and creatinine is 0.87 with repeat magnesium showing 1.5 and will replace per protocol and will also add magnesium oxide 400 twice a day and repeat labs in the morning. Patient has been accepted at [facility] and awaiting authorization for approval with [employer] work following. Review of systems: Constitutional: Reports of fatigue, no reports of fever, or chills Cardiovascular: No reports of chest pain or palpitations Respiratory: reports of shortness of breath and cough GI: No reports of nausea, vomiting, or diarrhea : No reports of dysuria or retention Neurovascular: Reports generalized weakness and inability to walk steadily and safely All medications have been reviewed Objective - Vital Signs Vital signs: Vital Signs Temp 97.6 F 10/29/20 07:40 Pulse 88 10/29/20 11:48 Resp 16 10/29/20 11:48 BP 153/84 10/29/20 07:40 Pulse Ox 98 10/29/20 08:08 Intake & Output 10/28/20 10/29/20 10/29/20 18:59 06:59 18:59 Intake Total 540 236 Output Total 550 1175 1300 Balance -10 -3897 -1061 Intake: IV 200 Magnesium Sulfate-D5w Pmx 200 1 gm In Dextrose/Water 1 100ml.bag @ 100 mls/hr IVPB Q1H [facility] Rx#: [id number] Oral 340 236 Output: Urine 550 1175 1300 Other: Voiding Method Urinal Urinal # Voids 2 2 - Exam GENERAL: The patient is asleep although arousable, alert and oriented x3, not in any acute distress. Well developed, well nourished. HEENT: Pupils are round and equally reacting to light. EOMI. No scleral icterus. No conjunctival pallor. Normocephalic, atraumatic. No pharyngeal erythema. No thyromegaly. CARDIOVASCULAR: S1 and S2 present. No murmurs, rubs, or gallops. PULMONARY: diminished with some scattered ronchi noted ABDOMEN: Soft, nontender, nondistended, normoactive bowel sounds. No palpable organomegaly. MUSCULOSKELETAL: No joint swelling or deformity. EXTREMITIES: No cyanosis, clubbing, bilateral lower extremity edema much improved NEUROLOGICAL: Gross neurological examination did not reveal any focal deficits. SKIN: No rashes. - Labs CBC & Chem 7: 10/28/20 04:50 10/29/20 06:00 Labs: Abnormal Lab Results - Last 24 Hours (Table) 10/29/20 Range/Units 06:00 Sodium 130 L (137-145) mmol/L Chloride 89 L (98-107) mmol/L Carbon Dioxide 39 H (22-30) mmol/L BUN 28 H (9-20) mg/dL Magnesium 1.5 L (1.6-2.3) mg/dL Microbiology - Last 24 Hours (Table) 10/25/20 22:29 Urine Culture - Final Urine,Voided Staphylococcus epidermidis Assessment and Plan Assessment: -Bilateral lower extremity edema cannot completely rule out congestive heart failure. 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 Discontinued IV Lasix and will continue to monitor closely with compression stockings as edema has significantly improved and will consider oral Lasix on discharge. Echo shows an EF of 50-55% with LV systolic function low to normal -Atrial fibrillation with rapid ventricular rate; cardiology evaluated the patient and resumed Cardizem and also verified coverage and patient was started on Eliquis. Most likely chronic persistent atrial fibrillation -Hypervolemic hyponatremia: Sodium is 130 today and discontinued IV Lasix -Hypomagnesemia magnesium will be replaced. Repeat magnesium is 1.5 and will replace and start magnesium supplement with repeat labs in the morning. -Alcohol abuse: Will continue with CIWA protocol as patient was exhibiting some signs of withdrawal and will monitor closely. We'll transition to oral Ativan as he requests Ativan frequently per nursing staff -COPD without any acute exacerbation patient continues to smoke counseling was provided -DVT prophylaxis with Eliquis Plan: Continue with current medications and continue to monitor. Continue telemetry as patient continues A. fib now with a controlled rate and patient will continue with Cardizem 180 mg daily along with anticoagulant.. Cardiology following. Recommend to continue with compression stockings and/or Prieto wraps to bilateral l ower extremities from the toes up to the knees and elevating while at rest. Bilateral lower extremity swelling significantly improved. Wean FiO2 as tolerated. Social work following this patient will be going to [facility] for continued PT/OT therapy. Patient has been [facility] at [facility] from insurance. Possible discharge in 24-48 hours.
[2020-10-29] MEDS: MAGNESIUM OXIDE 400 MG TAB PO SCH (19:52)
[2020-10-30] MEDS: LORazepam 1 MG TAB PO PRN ×2 (02:46→16:21)
[2020-10-30] MEDS: IPRATROPIUM-ALBUTEROL 3 ML NEB INHALATION SCH ×3 (07:31→16:24)
[2020-10-30] MEDS: THIAMINE 100 MG TAB PO SCH (08:00)
[2020-10-30] MEDS: MAGNESIUM OXIDE 400 MG TAB PO SCH (08:00)
[2020-10-30] MEDS: DILTIAZEM CD 180 MG CAP.ER.24H PO SCH (08:00)
[2020-10-30] MEDS: NICOTINE 14MG/24HR PATCH TRANSDERM SCH (08:00)
[2020-10-30] MEDS: HYDROcodone/APAP 5-325MG 1 EACH TAB PO PRN ×2 (08:05→14:18)
[2020-10-30] MEDS: APIXABAN 2.5 MG TABLET PO SCH (08:05)
[2020-10-30 11:57] LABS: African American GFR (CKD) >90 (>60 ml/min/1.73 sqM); Anion Gap 0 mmol/L; Blood Urea Nitrogen 29 mg/dL (9-20); Calcium 9.3 mg/dL (8.4-10.2); Carbon Dioxide 40 mmol/L (22-30); Chloride 93 mmol/L (98-107); Glucose 86 mg/dL (74-99); Non-African American GFR(CKD) 88 (>60 ml/min/1.73 sqM); Potassium 5.2 mmol/L (3.5-5.1); Sodium 133 mmol/L (137-145)
--- NOTE | 2020-10-30 12:12 | XR ---
EXAMINATION TYPE: XR chest 1V portable DATE OF EXAM: 10/30/2020 COMPARISON: 10/25/2020 HISTORY: Difficulty breathing, COPD TECHNIQUE: Single frontal view of the chest is obtained. FINDINGS: Heart is enlarged. There is no gross heart failure. There is diffuse bilateral prominence o f the pulmonary interstitium which has increased since prior exam suggestive of edema or atypical inf ection. Small right pleural effusion.. No left pleural effusion seen. Hyperaeration of the lung sugge stive of COPD. No pneumothorax. Degenerative changes of the left shoulder. IMPRESSION: 1. Mild stable cardiomegaly. Diffuse pulmonary prominence has increased since prior exam suggestive o f edema, or less likely atypical infection. Small right pleural effusion. Consider congestive heart f ailure.
[2020-10-30] MEDS: MAGNESIUM SULFATE-D5W PMX 1 GM in DEXTROSE/WATER 1 100ML.BAG IVPB SCH ×2 (12:28→13:31)
[2020-10-30] MEDS ORDERED: FUROSEMIDE 10 MG/ML 4 ML VIAL IV STA (12:28)
--- NOTE | 2020-10-30 13:49 | P.PN ---
Subjective HISTORY OF PRESENTING ILLNESS This is a pleasant 60-year-old male past medical history significant for hypertension, atrial fibrillation/atrial flutter, alcohol abuse, COPD. He used to follow with Dr. Min last seen in February 2016. 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 We have been asked to see in consultation for atrial fibrillation with rapid ventricular response. In 2015, patient presented to [facility] and was found to be in atrial flutter with variable block. That was a new diagnosis for patient. Patient was started on Eliquis and by mouth Cardizem. During that time he underwent an echocardiogram showed normal LV function. Patient presents to the emergency department with complaints of bilateral lower extremity swelling and shortness of breath. He was also exhibiting palpitations, lightheadedness, dizziness. He states he was feeling weak and his heart was "doing weird things". He denies chest pain, symptoms of orthopnea or PND, syncope, lightheadedness, dizziness. He denies history of diabetes, stroke, ND. He continues to drink vodka 1/2 gallon daily. Current every day smoker. He currently does not take any cardiac medications at home. DIAGNOSTICS EKG reveals atrial fibrillation with rapid ventricular response, heart rate 115, Right bundle branch block. Previous EKG in 2016 revealed atrial flutter right bundle branch block. In 2018 patient's EKG is also in atrial fibrillation EKG 10/28 morning revealed atrial fibrillation with rapid ventricular response, right bundle-branch block, heart rate 113 Echocardiogram 10/27/2020 - EF 50-55%, RV is mildly enlarged, left atrium is mildly dilated, mild mitral regurgitation, mild tricuspid regurgitation, moderate pulmonary hypertension with an RVSP of 60 mmHg. Chest xray slight coarsening of interstitial markings, no obvious heart failure 10/30/2020: Patient seen and examined at bedside. No acute distress. Denies shortness of breath, chest pain. Telemetry tracings indicate atrial fibrillation HR 80s-100. No episodes of atrial fibrillation with RVR overnight or this morning. Patient currently being maintained on Eliquis 2.5mg BID, Cardizem 180mg dialy Laboratory reviewed, sodium sodium 133, potassium 5.2, serum creatinine 0.94, BUN 29, magnesium 1.6. PHYSICAL EXAMINATION BP 125/729 HR 91 CONSTITUTIONAL: No apparent distress. HEENT: Head is normocephalic. No JVD. No carotid bruit. CHEST EXAMINATION: Lungs are clear to auscultation. No chest wall tenderness is noted on palpation or with deep breathing. HEART EXAMINATION: Irregular rate and rhythm. S1, S2 heard. No murmurs, gallops or rub. ABDOMEN: Soft, nontender. Positive bowel sounds. EXTREMITIES: 2+ peripheral pulses, no bilateral extremity edema NEUROLOGIC EXAMINATION: Patient is awake, alert and oriented x3. ASSESSMENT Atrial fibrillation with RVR- most likely chronic persistent - was previously on PO Cardizem and PO Eliquis 2.5mg BID -[id number] score 1 Bilateral lower extremity edema Alcohol Dependence COPD PLAN Continue Eliquis 2.5mg BID - per case management this is 100% covered. Recommend lower dose of anticoagulation due to patient's alcohol use and risk of falls. Cardizem 180mg Daily Alcohol cessation discussed with patient and highly encouraged. Follow up with Dr. Min No further changes from cardiology perspective, we will follow the patient as needed. Nurse Practitioner note has been reviewed, I agree with a documented findings and plan of care. Patient was seen and examined. Objective - Vital Signs Vital signs: Vital Signs Temp 98.5 F 10/30/20 07:39 Pulse 84 10/30/20 11:31 Resp 16 10/30/20 11:31 BP 125/72 10/30/20 07:39 Pulse Ox 94 L 10/30/20 07:39 Intake & Output 10/29/20 10/30/20 10/30/20 18:59 06:59 18:59 Intake Total 236 Output Total 1650 400 290 Balance -1414 -400 -290 Intake: Oral 236 Output: Urine 1650 400 290 Other: Voiding Method Urinal # Voids 2 2 1 - Labs CBC & Chem 7: 10/28/20 04:50 10/30/20 06:52 Labs: Abnormal Lab Results - Last 24 Hours (Table) 10/30/20 Range/Units 06:52 Sodium 133 L (137-145) mmol/L Potassium 5.2 H (3.5-5.1) mmol/L Chloride 93 L (98-107) mmol/L Carbon Dioxide 40 H (22-30) mmol/L BUN 29 H (9-20) mg/dL Microbiology - Last 24 Hours (Table) 10/25/20 22:29 Urine Culture - Final Urine,Voided Staphylococcus epidermidis
--- NOTE | 2020-10-30 15:19 | P.DS ---
Providers Date of admission: 10/27/20 14:04 Expected date of discharge: 10/30/20 Attending physician: Jonathan Denton Consults: 10/27/20 20:12 Consult Physician Stat Consulting Provider: Chago Agustin Consult Reason/Comments: Afib with RVR Do you want consulting provider notified?: Yes Primary care physician: [facility] Course: Final diagnosis -Bilateral lower extremity edema Most likely chronic diastolic dysfunction congestive heart failure with right-sided heart failure. Echo shows an EF of 50-55% with LV systolic function low to normal -Atrial fibrillation with rapid ventricular rate -Hypervolemic hyponatremia -Hypomagnesemia -Alcohol abuse -COPD without any acute exacerbation patient continues to smoke counseling was provided -DVT prophylaxis Discharge disposition Patient is being discharged in a stable condition with guarded prognosis to [facility] for continued PT/OT therapy. [facility] setting upon discharge. Patient is to follow-up with cardiology in 2 weeks. Total time taken is greater than 35 minutes. Hospital course 60-year-old male came in with complaints of for bilateral lower extremity swelling was also coming of some shortness of breath denied any clear orthopnea or paroxysmal nocturnal dyspnea. Patient had worsening swelling which started about the week to 10 days ago, patient has elevated BNP of 3600 I was unable to appreciate any clear JVD. Patient does have history of alcohol abuse patient was discharged after his hospital patient for alcohol withdrawal on October 10 of this year since then patient stopped drinking patient was started on all call withdrawal protocol which was discontinued. Although patient did drink socially about couple days ago. Patient denied any fever chills. Chest x-ray is consistent with a significant interstitial markings without any pleural effusions. 10/27/2020 Patient is seen and evaluated and follow-up continues to have some shortness of breath and is being closely monitored. 2-D echo was ordered and currently pending. Patient continues on IV Lasix for lower extremity edema and will continue at this time. Sodium today is 136 with a potassium of 3.8 and current creatinine is 0.9 and will repeat and monitor closely. Repeat magnesium is 1.5 and will replace. Nursing staff and witnessed on exam at the bedside patient is exhibiting signs of acute alcohol withdrawal and will continue with CIWA protocol and monitor closely. Patient continues to be weak and evaluated by PT/OT therapy and will be going to ECF for continued strength and mobility on discharge. Patient is currently 96% oxygen saturation on 2 L via nasal cannula and discussed with nursing staff about discontinuing or weaning FiO2 as tolera hortencia. Patient states he uses inhalers in the outpatient setting although does not wear oxygen at home. 10/28/2020 Patient is seen in follow-up this morning lethargic although arousable stating he continues to have lower extremity pain with inability to walk. Is requesting morphine and we'll transition to oral as he will likely be going to ECF once stabilized. Patient is having some shortness of breath today and currently maintained on 2-4 L of oxygen via nasal cannula. Oxygen saturation is 98% on 4 L and discussed with nursing staff about weaning as tolerated. Patient's sodium 131 with a potassium of 3.6 and creatinine is 0.9 and will discontinue IV Lasix and monitor closely and will likely require oral Lasix on discharge. Bilateral lower extremity significantly improved and suggested to continue with compression stockings. 10/29/2020 Patient is seen in follow-up continues to be lethargic although easily arousable. Patient continues to be on 4 L of oxygen and his oxygen saturation is 99% and will discuss again with nursing staff about weaning FiO2 as tolerated. Sodium is 130 today with a potassium of 4.0 and creatinine is 0.87 with repeat magnesium showing 1.5 and will replace per protocol and will also add magnesium oxide 400 twice a day and repeat labs in the morning. Patient has been accepted at [facility] and awaiting authorization for approval with social work following. 10/30/2020 Patient is seen in follow-up continues to be on 2 L of oxygen and repeat a chest x-ray which shows diffuse pulmonary prominence suggestive of edema with a small right pleural effusion and consider congestive heart failure and was given a dose of IV Lasix 40 mg. Will be continued on 40 mg of Lasix daily and recommend repeat labs in 2-3 days to monitor sodium levels along with kidney functions and magnesium levels. Magnesium was 1.6 today and given replacement and will continue with magnesium oxide tablets 400 mg twice daily. Patient to also continue with compression stockings and elevating lower extremities while at rest. Bilateral lower extremity edema significantly improved. Wean FiO2 as tolerated. Patient will be discharged to ECF today for continued PT/OT therapy for strength and mobility. Currently no reports of chest pain, shortness of breath, or palpitations. Patient is afebrile. No reports of nausea or vomiting and patient is tolerating diet. Patient will be going to [facility] today. On exam vital signs are stable. Respiratory system shows diminished breath sounds at the bases with no wheezing or rhonchi noted. Abdomen is soft and nontender. Nervous system shows diffuse weakness. Please refer to medication reconciliation sheet for a list of medications. Patient Condition at Discharge: Fair Plan - Discharge Summary Discharge Rx Participant: No New Discharge Prescriptions: New Apixaban [Eliquis] 2.5 mg PO BID 30 Days #60 tablet Diltiazem Cd [Cardizem CD] 180 mg PO DAILY cap.er.24h Nicotine 14Mg/24Hr Patch [Habitrol] 1 patch TRANSDERM DAILY patch LORazepam [Ativan] 1 mg PO Q8HR PRN #6 tab PRN Reason: Anxiety Ipratropium-Albuterol Nebulize [Duoneb 0.5 mg-3 mg/3 ml Soln] 3 ml INHALATION RT-QID ml HYDROcodone/APAP 5-325MG [[place] 5-325] 1 each PO Q6HR PRN #6 tab PRN Reason: Pain Furosemide [Lasix] 40 mg PO DAILY #6 tablet Magnesium Oxide [Mag-Ox] 400 mg PO BID tab Thiamine [Vitamin B-1] 100 mg PO BID-W/MEALS tab Discharge Medication List Apixaban [Eliquis] 2.5 mg PO BID 30 Days #60 tablet 10/28/20 [Rx] Diltiazem Cd [Cardizem CD] 180 mg PO DAILY cap.er.24h 10/30/20 [Rx] Furosemide [Lasix] 40 mg PO DAILY #6 tablet 10/30/20 [Rx] HYDROcodone/APAP 5-325MG [[place] 5-325] 1 each PO Q6HR PRN #6 tab 10/30/20 [Rx] Ipratropium-Albuterol Nebulize [Duoneb 0.5 mg-3 mg/3 ml Soln] 3 ml INHALATION RT-QID ml 10/30/20 [Rx] LORazepam [Ativan] 1 mg PO Q8HR PRN #6 tab 10/30/20 [Rx] Magnesium Oxide [Mag-Ox] 400 mg PO BID tab 10/30/20 [Rx] Nicotine 14Mg/24Hr Patch [Habitrol] 1 patch TRANSDERM DAILY patch 10/30/20 [Rx] Thiamine [Vitamin B-1] 100 mg PO BID-W/MEALS tab 10/30/20 [Rx] Follow up Appointment(s)/Referral(s): Benitez Min MD [STAFF PHYSICIAN] - 2 Weeks [facility] - 1-2 Days (New PCP appointment needed) Ambulatory/Diagnostic Orders: Basic Metabolic Panel [LAB.AMB] Time Frame: 3 Days, Location: None Selected Magnesium [LAB.AMB] Location: None Selected Patient Instructions/Handouts: Dizziness (GEN) Activity/Diet/Wound Care/Special Instructions: Patient is going to ECF Activity as tolerated follow up with primary care provider upon discharge Follow-up with cardiology outpatient in 2 weeks Continue to avoid alcohol and tobacco Continue with current medication regimen Repeat labs in 2-3 days to monitor kidney functions and electrolytes along with magnesium Continue working with physical therapy Discharge Disposition: TRANSFER TO SNF/ECF
[2020-10-30 15:34] VITALS: BP 123/76; PULSE 95; RESP 18; TEMP 98.6
== END 2020-10-30 16:33 | DRG 309 ==
LOC: EC 22:16 → 4SSUR 10-26 00:29 → 6NMEDSUR 10-26 15:48 → OBSVTOIN 10-27 14:04
PROVIDERS: ADMIT Hospitalist; ATTEND Hospitalist
DX: I48.19 Other persistent atrial fibrillation (principal); J44.1 Chronic obstructive pulmonary disease with (acute) exacerbation; F10.239 Alcohol dependence with withdrawal, unspecified; E87.1 Hypo-osmolality and hyponatremia; I50.32 Chronic diastolic (congestive) heart failure; I48.92 Unspecified atrial flutter; I11.0 Hypertensive heart disease with heart failure; Z91.14 Patient's other noncompliance with medication regimen; F32.9 Major depressive disorder, single episode, unspecified; F17.200 Nicotine dependence, unspecified, uncomplicated; F10.20 Alcohol dependence, uncomplicated; E83.42 Hypomagnesemia; I27.29 Other secondary pulmonary hypertension; I45.10 Unspecified right bundle-branch block; I50.82 Biventricular heart failure; Z79.01 Long term (current) use of anticoagulants; Z79.899 Other long term (current) drug therapy; Z71.6 Tobacco abuse counseling; Z20.822 Contact with and (suspected) exposure to COVID-19; Y90.0 Blood alcohol level of less than 20 mg/100 ml
CPT/HCPCS: 36415; 71045; 71046; 80048; 80053; 80320; 81001; 82550; 83735; 83880; 84100; 84484; 85025; 85610; 85730; 87077; 87086; 87186; 87635; 93005; 93306; 94640; 94760; 96360; 96361; 99285

== ENCOUNTER 2020-12-04 15:34 | Emergency (ER) | payer OTHER ==
[2020-12-04 15:38] VITALS: BP 147/74; PULSE 86; RESP 20; TEMP 97.9
--- NOTE | 2020-12-04 17:40 | US ---
EXAMINATION TYPE: US venous doppler duplex LE DATE OF EXAM: 12/04/2020 5:00 PM COMPARISON: NONE CLINICAL HISTORY: 60-year-old male with lower extremity swelling and edema. SIDE PERFORMED: Bilateral TECHNIQUE: The lower extremity deep venous system is examined utilizing real time linear array sonog marycarmen with graded compression, doppler sonography and color-flow sonography. VESSELS IMAGED: Common Femoral Vein Deep Femoral Vein Greater Saphenous Vein * Femoral Vein Popliteal Vein Small Saphenous Vein * Proximal Calf Veins (* superficial vessels) Right Leg: Negative for DVT Left Leg: Negative for DVT IMPRESSION: Grayscale, color doppler, spectral doppler imaging performed of the deep veins of the lo wer extremities. There is normal flow, compressibility, vascular waveforms. No sonographic evidence of deep vein thrombosis in the lower extremities.
--- NOTE | 2020-12-04 17:49 | ED ---
General Adult HPI - General Chief complaint: Extremity Problem,Nontraumatic Stated complaint: Leg pain Time Seen by Provider: 12/04/20 15:42 Source: patient, RN notes reviewed Mode of arrival: ambulatory Limitations: no limitations - History of Present Illness Initial comments: Patient is a 60-year-old male that presents to the emergency department comp laining of left lower extremity swelling and some calf tenderness. He also notes some right groin tenderness or a lawnmower rolled over him. Patient was in no other apparent distress or pain while sitting up during the exam and interview. He notes that his calf leg doesn't bother him unless some he pushed on it. She denied other issues or complaints. He was a well-appearing well- hydrated 6-year-old male. He denied any chest pain shortness of breath headache nausea vomiting diarrhea constipation fever fatigue chills. - Related Data Previous Rx's Medication Instructions Recorded Apixaban [Eliquis] 2.5 mg PO BID 30 Days #60 tablet 10/28/20 Diltiazem Cd [Cardizem CD] 180 mg PO DAILY cap.er.24h 10/30/20 Furosemide [Lasix] 40 mg PO DAILY #6 tablet 10/30/20 HYDROcodone/APAP 5-325MG [[place] 1 each PO Q6HR PRN #6 tab 10/30/20 5-325] Ipratropium-Albuterol Nebulize 3 ml INHALATION RT-QID ml 10/30/20 [Duoneb 0.5 mg-3 mg/3 ml Soln] LORazepam [Ativan] 1 mg PO Q8HR PRN #6 tab 10/30/20 Magnesium Oxide [Mag-Ox] 400 mg PO BID tab 10/30/20 Nicotine 14Mg/24Hr Patch [Habitrol] 1 patch TRANSDERM DAILY patch 10/30/20 Thiamine [Vitamin B-1] 100 mg PO BID-W/MEALS tab 10/30/20 Cephalexin [Keflex] 500 mg PO Q6HR #40 cap 12/04/20 Allergies Allergy/AdvReac Type Severity Reaction Status Date / Time No Known Allergies Allergy Verified 12/04/20 17:51 Review of Systems ROS Statement: Those systems with pertinent positive or pertinent negative responses have been documented in the HPI. ROS Other: All systems not noted in ROS Statement are negative. Past Medical History Past Medical History: Atrial Fibrillation, COPD, Hypertension History of Any Multi-Drug Resistant Organisms: None Reported Past Surgical History: No Surgical Hx Reported Past Anesthesia/Blood Transfusion Reactions: No Reported Reaction Past Psychological History: Depression Smoking Status: Current every day smoker Past Alcohol Use History: Abuse, Daily, Heavy Past Drug Use History: Marijuana General Exam Limitations: no limitations General appearance: alert, in no apparent distress Head exam: Present: atraumatic, normocephalic, normal inspection Eye exam: Present: normal appearance, PERRL, EOMI. Absent: scleral icterus, conjunctival injection, periorbital swelling Neck exam: Present: normal inspection Respiratory exam: Present: normal lung sounds bilaterally. Absent: respiratory distress, wheezes, rales, rhonchi, stridor Cardiovascular Exam: Present: regular rate, normal rhythm, normal heart sounds. Absent: systolic murmur, diastolic murmur, rubs, gallop, clicks Left Lower Leg exam: Present: full ROM, tenderness (To the calf), swelling (2+, skin is taut), erythema. Absent: normal inspection, abrasion, laceration, ecchymosis, deformity Neurological exam: Present: alert, oriented X3 Psychiatric exam: Present: normal affect, normal mood Skin exam: Present: warm, dry, intact, normal color. Absent: rash Course Vital Signs 12/04/20 15:36 Temperature 97.9 F Pulse Rate 86 Respiratory 20 Rate Blood Pressure 147/74 O2 Sat by Pulse 96 Oximetry Medical Decision Making - Medical Decision Making 60-year-old male complaining of left lower extremity swelling and some right groin discomfort. Ultrasound of the bilateral lower extremities ordered. Patient declined the need for any pain medication this time as she was comfortable. Ultrasound negative for any DVT bilateral lower extremities. Case discussed with Dr. Ogden, patient can discharge home with follow-up to primary care. - Radiology Data Radiology results: report reviewed, image reviewed Bilateral ultrasound of lower extremity: Negative for DVT. Disposition Clinical Impression: Lower leg edema, Cellulitis Disposition: HOME SELF-CARE Condition: Stable Instructions (If sedation given, give patient instructions): Cellulitis (ED) Additional Instructions: Please return to the Emergency Department if symptoms worsen or any other concerns. Follow-up primary care is needed. Take antibiotics as prescribed. Is patient prescribed a controlled substance at d/c from ED?: No Referrals: None,Stated [Primary Care Provider] - 1-2 days Time of Disposition: 17:56
== END 2020-12-04 18:10 | disposition home or self-care (01) ==
LOC: EC 15:34
DX: R60.1 Generalized edema (principal); F17.200 Nicotine dependence, unspecified, uncomplicated; I10 Essential (primary) hypertension; I48.91 Unspecified atrial fibrillation; J44.9 Chronic obstructive pulmonary disease, unspecified; F32.9 Major depressive disorder, single episode, unspecified; F12.90 Cannabis use, unspecified, uncomplicated; Z79.01 Long term (current) use of anticoagulants
CPT/HCPCS: 93970; 99284

== ENCOUNTER 2020-12-28 19:49 | Emergency (ER) | payer OTHER ==
--- NOTE | 2020-12-28 20:35 | ED ---
Psych HPI - General Chief Complaint: Psychiatric Symptoms Stated Complaint: Petition Time Seen by Provider: 12/28/20 20:01 Source: patient, police Mode of arrival: ambulatory - History of Present Illness Initial Comments: Reggie is a 60-year-old male who is brought to the ER today after he called 911 because he is feeling suicidal. Patient reports he hears voices he has heard v oices since he was 5 years old he's been on antidepressant medications in the past. Has not been on medications this week because he ran out. States that prior to today he was sober for 75 days but began drinking today because the voices were becoming unbearable. Patient states that the nurses tell him he should kill somebody, no with a ventricular but he should "murder the shit out of someone" he states that the voices are also telling him that if he will not murder someone he should kill himself. - Related Data Home Medications Medication Instructions Recorded Confirmed Albuterol Sulfate [Albuterol 2 puff PO RT-QID PRN 12/04/20 12/28/20 Sulfate Hfa] Escitalopram Oxalate [Lexapro] 5 mg PO DAILY 12/04/20 12/28/20 Furosemide [Lasix] 20 mg PO DAILY 12/04/20 12/28/20 Nicotine 7Mg/24Hr Patch [Habitrol 1 patch TRANSDERM DAILY 12/28/20 12/28/20 7Mg/24Hr Patch] Previous Rx's Medication Instructions Recorded Apixaban [Eliquis] 2.5 mg PO BID 30 Days #60 tablet 10/28/20 Diltiazem Cd [Cardizem CD] 180 mg PO DAILY cap.er.24h 10/30/20 Magnesium Oxide [Mag-Ox] 400 mg PO BID tab 10/30/20 Allergies Allergy/AdvReac Type Severity Reaction Status Date / Time No Known Allergies Allergy Verified 12/28/20 19:53 Review of Systems ROS Statement: Those systems with pertinent positive or pertinent negative responses have been documented in the HPI. ROS Other: All systems not noted in ROS Statement are negative. Past Medical History Past Medical History: Atrial Fibrillation, COPD, Hypertension History of Any Multi-Drug Resistant Organisms: None Reported Past Surgical History: No Surgical Hx Reported Past Anesthesia/Blood Transfusion Reactions: No Reported Reaction Past Psychological History: Depression Smoking Status: Current every day smoker Past Alcohol Use History: Abuse, Daily, Heavy Past Drug Use History: Marijuana General Exam - General Exam Comments Initial Comments: Physical Exam GENERAL: Patient is well-developed and well-nourished. Patient is nontoxic and well-hydrated and is in no distress. HENT: Normocephalic, Atraumatic. EYES: PERRL, EOMI PULMONARY: Unlabored respirations. CARDIOVASCULAR: Tachycardiac ABDOMEN: Non-distended SKIN: No rashes or bruising : Deferred NEUROLOGIC: Alert and oriented Normal speech Normal gait MUSCULOSKELETAL: Moving all extremities with no apparent injury PSYCHIATRIC: Hearing voices with homicidal and suicidal commands Limitations: no limitations Course Vital Signs 12/28/20 12/28/20 12/28/20 19:53 19:57 23:40 Temperature 98.6 F 98.2 F Pulse Rate 67 104 H 111 H Respiratory 16 22 20 Rate Blood Pressure 144/86 98/71 124/71 O2 Sat by Pulse 87 L 91 L 92 L Oximetry 12/29/20 12/29/20 02:37 02:38 Temperature Pulse Rate 98 Respiratory 18 Rate Blood Pressure 149/88 O2 Sat by Pulse 84 L 96 Oximetry Medical Decision Making - Medical Decision Making The patient was seen and evaluated, patient is intoxicated but reporting suicidal and homicidal voices in his head Patient will be medically cleared for psychiatric evaluation 4:30, Dr. Lee the nighttime doctor made aware, disposition pending psychiatric evaluation - Lab Data Result diagrams: 12/28/20 20:22 12/28/20 20:22 Lab Results 12/28/20 12/28/20 12/28/20 Range/Units 20:22 20:22 20:22 WBC 6.8 (3.8-10.6) k/uL RBC 4.71 (4.30-5.90) m/uL Hgb 13.3 (13.0-17.5) gm/dL Hct 42.5 (39.0-53.0) % MCV 90.2 (80.0-100.0) fL MCH 28.1 (25.0-35.0) pg MCHC 31.2 (31.0-37.0) g/dL RDW 16.2 H (11.5-15.5) % Plt Count 197 (150-450) k/uL MPV 7.3 Neutrophils % 60 % Lymphocytes % 29 % Monocytes % 7 % Eosinophils % 1 % Basophils % 1 % Neutrophils # 4.0 (1.3-7.7) k/uL Lymphocytes # 1.9 (1.0-4.8) k/uL Monocytes # 0.5 (0-1.0) k/uL Eosinophils # 0.1 (0-0.7) k/uL Basophils # 0.0 (0-0.2) k/uL Anisocytosis Slight Sodium 136 L (137-145) mmol/L Potassium 5.5 H (3.5-5.1) mmol/L Chloride 99 (98-107) mmol/L Carbon Dioxide 25 (22-30) mmol/L Anion Gap 12 mmol/L BUN 30 H (9-20) mg/dL Creatinine 1.00 (0.66-1.25) mg/dL Est GFR (CKD-EPI)AfAm >90 (>60 ml/min/1.73 sqM) Est GFR (CKD-EPI)NonAf 82 (>60 ml/min/1.73 sqM) Glucose 89 (74-99) mg/dL Calcium 9.6 (8.4-10.2) mg/dL Total Bilirubin 0.9 (0.2-1.3) mg/dL AST 55 (17-59) U/L ALT 34 (4-49) U/L Alkaline Phosphatase 88 (38-126) U/L Total Protein 7.2 (6.3-8.2) g/dL Albumin 4.4 (3.5-5.0) g/dL Urine Color Yellow Urine Appearance Clear (Clear) Urine pH 5.5 (5.0-8.0) Ur Specific [place] 1.012 (1.001-1.035) Urine Protein 1+ H (Negative) Urine Glucose (UA) Negative (Negative) Urine Ketones Negative (Negative) Urine Blood Negative (Negative) Urine Nitrite Negative (Negative) Urine Bilirubin Negative (Negative) Urine Urobilinogen <2.0 (<2.0) mg/dL Ur Leukocyte Esterase Negative (Negative) Urine RBC <1 (0-5) /hpf Urine WBC <1 (0-5) /hpf Hyaline Casts 1 (0-2) /lpf Urine Mucus Rare H (None) /hpf Salicylates <1.0 mg/dL Urine Opiates Screen Not Detected (NotDetected) Ur Oxycodone Screen Not Detected (NotDetected) Urine Methadone Screen Not Detected (NotDetected) Ur Propoxyphene Screen Not Detected (NotDetected) Acetaminophen <10.0 ug/mL Ur Barbiturates Screen Not Detected (NotDetected) U Tricyclic Antidepress Not Detected (NotDetected) Ur Phencyclidine Scrn Not Detected (NotDetected) Ur Amphetamines Screen Not Detected (NotDetected) U Methamphetamines Scrn Not Detected (NotDetected) U Benzodiazepines Scrn Not Detected (NotDetected) Urine Cocaine Screen Not Detected (NotDetected) U Marijuana (THC) Screen Not Detected (NotDetected) Serum Alcohol 212 H* mg/dL Disposition Clinical Impression: Alcohol intoxication Disposition: HOME SELF-CARE Instructions (If sedation given, give patient instructions): Mood Disorders (ED), Alcohol Intoxication (ED), Suicide Prevention (ED) Is patient prescribed a controlled substance at d/c from ED?: No Referrals: None,Stated [Primary Care Provider] - 1-2 days
[2020-12-28 20:49] LABS: Anisocytosis Slight; Basophils % (A) 1 %; Eosinophils # (A) 0.1 k/uL (0-0.7); Eosinophils % (A) 1 %; HCT 42.5 % (39.0-53.0); HGB 13.3 gm/dL (13.0-17.5); Lymphocytes # (A) 1.9 k/uL (1.0-4.8); Lymphocytes % (A) 29 %; MCH 28.1 pg (25.0-35.0); MCHC 31.2 g/dL (31.0-37.0); MCV 90.2 fL (80.0-100.0); Mean Platelet Volume 7.3; Monocytes # (A) 0.5 k/uL (0-1.0); Monocytes % (A) 7 %; Neutrophils % (A) 60 %; Platelet Count 197 k/uL (150-450); RBC 4.71 m/uL (4.30-5.90); RDW 16.2 % (11.5-15.5); WBC 6.8 k/uL (3.8-10.6)
[2020-12-28 21:05] LABS: ALT 34 U/L (4-49); Acetaminophen <10.0 ug/mL; African American GFR (CKD) >90 (>60 ml/min/1.73 sqM); Anion Gap 12 mmol/L; Blood Urea Nitrogen 30 mg/dL (9-20); Calcium 9.6 mg/dL (8.4-10.2); Carbon Dioxide 25 mmol/L (22-30); Chloride 99 mmol/L (98-107); Glucose 89 mg/dL (74-99); Non-African American GFR(CKD) 82 (>60 ml/min/1.73 sqM); Salicylate <1.0 mg/dL; Sodium 136 mmol/L (137-145)
[2020-12-28 21:09] LABS: Albumin 4.4 g/dL (3.5-5.0); Alcohol 212 mg/dL; Potassium 5.5 mmol/L (3.5-5.1); Total Protein 7.2 g/dL (6.3-8.2)
[2020-12-28 21:10] LABS: AST 55 U/L (17-59); Alkaline Phosphatase 88 U/L (38-126); Total Bilirubin 0.9 mg/dL (0.2-1.3)
[2020-12-28] MEDS ORDERED: SODIUM CHLORIDE 0.9% 1,000 ML IV ONE (21:49)
[2020-12-28] MEDS ORDERED: LORazepam 2 MG/ML INJ IV STA (22:35)
[2020-12-28 23:42] VITALS: TEMP 98.2
[2020-12-29 00:12] LABS: Appearance,Urine Clear (Clear); Bilirubin,Urine Negative (Negative); Blood,Urine Negative (Negative); Color,Urine Yellow; Glucose,Urine (UA) Negative (Negative); Hyaline Casts,Urine 1 /lpf (0-2); Ketones,Urine Negative (Negative); Leukocyte Esterase,Urine Negative (Negative); Mucus,Urine Rare /hpf; Nitrite,Urine Negative (Negative); PH, Urine 5.5 (5.0-8.0); Protein,Urine 1+ (Negative); RBC,Urine <1 /hpf (0-5); Specific Gravity,Urine 1.012 (1.001-1.035); Urobilinogen,Urine <2.0 mg/dL (<2.0); WBC,Urine <1 /hpf (0-5)
[2020-12-29 00:24] LABS: Amphetamine Screen,Urine Not Detected (NotDetected); Barbiturate Screen,Urine Not Detected (NotDetected); Benzodiazepines Screen,Urine Not Detected (NotDetected); Cocaine Screen,Urine Not Detected (NotDetected); Methadone Screen, Urine Not Detected (NotDetected); Opiate Screen,Urine Not Detected (NotDetected); Oxycodone Screen, Urine Not Detected (NotDetected); Phencyclidine Screen,Urine Not Detected (NotDetected); Tricyclic Antidepressant,Urine Not Detected (NotDetected); Urn Cannabinoid Scrn Not Detected (NotDetected)
[2020-12-29 02:39] VITALS: BP 149/88; PULSE 98; RESP 18
[2020-12-29] MEDS ORDERED: NICOTINE 7MG/24HR PATCH TRANSDERM STA (03:17)
== END 2020-12-29 06:36 | disposition home or self-care (01) ==
LOC: EC 19:49
DX: F10.129 Alcohol abuse with intoxication, unspecified (principal); F17.200 Nicotine dependence, unspecified, uncomplicated; I10 Essential (primary) hypertension; I48.91 Unspecified atrial fibrillation; J44.9 Chronic obstructive pulmonary disease, unspecified; F12.90 Cannabis use, unspecified, uncomplicated; Y90.7 Blood alcohol level of 200-239 mg/100 ml; Z79.01 Long term (current) use of anticoagulants
CPT/HCPCS: 82075; 36415; 80053; 85025; 81001; 80306; 80143; 80179; 99284; 96374; 96361; G0480; S4990; J2060; 80320

== ENCOUNTER 2021-06-26 10:20 | Inpatient (IN) | payer OTHER ==
[2021-06-26] MEDS ORDERED: SODIUM CHLORIDE 0.9% 500 ML 500 ML IV ONE (10:43)
[2021-06-26] MEDS ORDERED: SODIUM CHLORIDE 0.9% 1,000 ML IV ONE (10:43)
[2021-06-26] MEDS ORDERED: methylPREDNISolone SOD SUCCI 125 MG/2 ML VIAL IV STA (10:44)
[2021-06-26] MEDS ORDERED: SODIUM CHLORIDE 0.9% 1,000 ML with THIAMINE 100 MG, FOLIC ACID 1 MG IV ONE ×3 (10:44)
[2021-06-26] MEDS ORDERED: IPRATROPIUM-ALBUTEROL 3 ML NEB INHALATION STA (10:44)
[2021-06-26] MEDS ORDERED: MULTIVITAMINS, THERA 1 EACH TAB PO STA (10:46)
[2021-06-26 11:18] LABS: Basophils % (A) 0 %; Eosinophils % (A) 1 %; HCT 41.8 % (39.0-53.0); HGB 12.7 gm/dL (13.0-17.5); Hypochromasia Slight; Lymphocytes # (A) 0.6 k/uL (1.0-4.8); Lymphocytes % (A) 14 %; MCH 30.6 pg (25.0-35.0); MCHC 30.3 g/dL (31.0-37.0); MCV 100.9 fL (80.0-100.0); Macrocytosis Slight; Mean Platelet Volume 8.3; Monocytes # (A) 0.3 k/uL (0-1.0); Monocytes % (A) 6 %; Neutrophils # (A) 3.2 k/uL (1.3-7.7); Neutrophils % (A) 76 %; Platelet Count 116 k/uL (150-450); RBC 4.14 m/uL (4.30-5.90); RDW 15.2 % (11.5-15.5); WBC 4.2 k/uL (3.8-10.6)
[2021-06-26 11:18] LABS: Glucose,Whole Blood 97 mg/dL (75-99)
[2021-06-26 11:28] LABS: Albumin 3.6 g/dL (3.5-5.0); Potassium 4.9 mmol/L (3.5-5.1); Total Bilirubin 0.9 mg/dL (0.2-1.3); Total Protein 6.3 g/dL (6.3-8.2)
[2021-06-26 11:30] LABS: Partial Thromboplastin Time 25.4 sec (22.0-30.0); Prothrombin Time 10.3 sec (9.0-12.0)
--- NOTE | 2021-06-26 11:48 | ED ---
General Adult HPI - General Chief complaint: Altered Mental Status Stated complaint: Chest Pain Time Seen by Provider: 06/26/21 10:20 Source: patient, RN notes reviewed, old records reviewed Mode of arrival: EMS Limitations: no limitations - History of Present Illness Initial comments: This is a 61-year-old male who is brought in by EMS because roommate found him unresponsive. Patient was able to answer some questions but he did not know the date or year. Patient states he drinks daily. Patient denied any chest pain difficulty breathing shortness of breath per patient denies any abdominal pain patient denies nausea or vomiting. According to EMS they did give him a breathing treatment on the way in and some Zofran because a complaint of nausea to them. There was no indication of any trauma. Patient denied wanting to even be here at this time. Patient denies any suicidal homicidal ideations. - Related Data Home Medications Medication Instructions Recorded Confirmed Unable To Assess [Unable to Assess] 06/26/21 06/26/21 Allergies Allergy/AdvReac Type Severity Reaction Status Date / Time No Known Allergies Allergy Verified 06/26/21 11:56 Review of Systems ROS Statement: Those systems with pertinent positive or pertinent negative responses have been documented in the HPI. ROS Other: All systems not noted in ROS Statement are negative. Past Medical History Past Medical History: Atrial Fibrillation, COPD, Hypertension History of Any Multi-Drug Resistant Organisms: None Reported Past Surgical History: No Surgical Hx Reported Past Anesthesia/Blood Transfusion Reactions: No Reported Reaction Past Psychological History: Depression Smoking Status: Current every day smoker Past Alcohol Use History: Abuse, Daily, Heavy Past Drug Use History: Marijuana General Exam - General Exam Comments Initial Comments: GENERAL: Patient is well-developed and well-nourished. Patient is nontoxic and well- hydrated and is in mild distress. Patient appears intoxicated ENT: Neck is soft and supple. No significant lymphadenopathy is noted. Oropharynx is clear. Moist mucous membranes. Neck has full range of motion without eliciting any pain. EYES: The sclera were anicteric and conjunctiva were pink and moist. Extraocular movements were intact and pupils were equal round and reactive to light. Eyelids were unremarkable. PULMONARY: Unlabored respirations. Good breath sounds bilaterally. No audible rales rhonchi or wheezing was noted. CARDIOVASCULAR: Patient's heart rates about 120 beats a minute and it's irregular. ABDOMEN: Soft and nontender with normal bowel sounds. SKIN: Skin is clear with no lesions or rashes and otherwise unremarkable. NEUROLOGIC: Patient is alert and oriented 2. Cranial nerves II through XII are grossly intact. Motor and sensory are also intact. Normal speech, volume and content. Symmetrical smile. MUSCULOSKELETAL: Normal extremities with adequate strength and full range of motion. LYMPHATICS: No significant lymphadenopathy is noted PSYCHIATRIC: Unable to assess secondary to intoxication Limitations: no limitations Course Vital Signs 06/26/21 06/26/21 06/26/21 10:25 11:06 13:22 Temperature 97.8 F Pulse Rate 106 H 110 H 96 Respiratory 15 20 Rate Blood Pressure 107/78 110/72 O2 Sat by Pulse 89 L 97 Oximetry 06/26/21 06/26/21 13:30 13:54 Temperature Pulse Rate 104 H 100 Respiratory 20 Rate Blood Pressure 132/90 O2 Sat by Pulse 100 Oximetry Medical Decision Making - Medical Decision Making EKG shows atrial fibrillation with rapid ventricular response at 120 beats a minute QRS 160 QTC intervals [address] of the brain showed no acute abnormality. It did say that might be an area of acute mastoiditis however the patient was nontender on palpation. Chest x-ray no obvious acute abnormality. Patient received a liter and half of fluid. I also started the patient on a banana bag. I spoke with Dr. Melgar she agreed to admit the patient admitted the patient wrote admitting orders. - Lab Data Result diagrams: 06/26/21 11:04 06/26/21 11:04 Lab Results 06/26/21 06/26/21 06/26/21 Range/Units 11:04 11:04 11:04 WBC 4.2 (3.8-10.6) k/uL RBC 4.14 L (4.30-5.90) m/uL Hgb 12.7 L (13.0-17.5) gm/dL Hct 41.8 (39.0-53.0) % MCV 100.9 H (80.0-100.0) fL MCH 30.6 (25.0-35.0) pg MCHC 30.3 L (31.0-37.0) g/dL RDW 15.2 (11.5-15.5) % Plt Count 116 L (150-450) k/uL MPV 8.3 Neutrophils % 76 % Lymphocytes % 14 % Monocytes % 6 % Eosinophils % 1 % Basophils % 0 % Neutrophils # 3.2 (1.3-7.7) k/uL Lymphocytes # 0.6 L (1.0-4.8) k/uL Monocytes # 0.3 (0-1.0) k/uL Eosinophils # 0.0 (0-0.7) k/uL Basophils # 0.0 (0-0.2) k/uL Hypochromasia Slight Macrocytosis Slight PT 10.3 (9.0-12.0) sec INR 1.0 (<1.2) APTT 25.4 (22.0-30.0) sec Sodium 118 L* (137-145) mmol/L Potassium 4.9 (3.5-5.1) mmol/L Chloride 82 L (98-107) mmol/L Carbon Dioxide 22 (22-30) mmol/L Anion Gap 14 mmol/L BUN 37 H (9-20) mg/dL Creatinine 2.03 H (0.66-1.25) mg/dL Est GFR (CKD-EPI)AfAm 40 (>60 ml/min/1.73 sqM) Est GFR (CKD-EPI)NonAf 34 (>60 ml/min/1.73 sqM) Glucose 98 (74-99) mg/dL POC Glucose (mg/dL) (75-99) mg/dL POC Glu Soil Science Professor ID Calcium 8.0 L (8.4-10.2) mg/dL Total Bilirubin 0.9 (0.2-1.3) mg/dL AST 61 H (17-59) U/L ALT 47 (4-49) U/L Alkaline Phosphatase 113 (38-126) U/L Ammonia (<30) umol/L Troponin I (0.000-0.034) ng/mL Total Protein 6.3 (6.3-8.2) g/dL Albumin 3.6 (3.5-5.0) g/dL Urine Color Urine Appearance (Clear) Urine pH (5.0-8.0) Ur Specific [place] (1.001-1.035) Urine Protein (Negative) Urine Glucose (UA) (Negative) Urine Ketones (Negative) Urine Blood (Negative) Urine Nitrite (Negative) Urine Bilirubin (Negative) Urine Urobilinogen (<2.0) mg/dL Ur Leukocyte Esterase (Negative) Urine RBC (0-5) /hpf Urine WBC (0-5) /hpf Ur Squamous Epith Cells (0-4) /hpf Hyaline Casts (0-2) /lpf Stool Occult Blood (Negative) Urine Opiates Screen (NotDetected) Ur Oxycodone Screen (NotDetected) Urine Methadone Screen (NotDetected) Ur Propoxyphene Screen (NotDetected) Ur Barbiturates Screen (NotDetected) U Tricyclic Antidepress (NotDetected) Ur Phencyclidine Scrn (NotDetected) Ur Amphetamines Screen (NotDetected) U Methamphetamines Scrn (NotDetected) U Benzodiazepines Scrn (NotDetected) Urine Cocaine Screen (NotDetected) U Marijuana (THC) Screen (NotDetected) Serum Alcohol 277 H* mg/dL Coronavirus (PCR) (Not Detectd) 06/26/21 06/26/21 06/26/21 Range/Units 11:04 11:04 11:17 WBC (3.8-10.6) k/uL RBC (4.30-5.90) m/uL Hgb (13.0-17.5) gm/dL Hct (39.0-53.0) % MCV (80.0-100.0) fL MCH (25.0-35.0) pg MCHC (31.0-37.0) g/dL RDW (11.5-15.5) % Plt Count (150-450) k/uL MPV Neutrophils % % Lymphocytes % % Monocytes % % Eosinophils % % Basophils % % Neutrophils # (1.3-7.7) k/uL Lymphocytes # (1.0-4.8) k/uL Monocytes # (0-1.0) k/uL Eosinophils # (0-0.7) k/uL Basophils # (0-0.2) k/uL Hypochromasia Macrocytosis PT (9.0-12.0) sec INR (<1.2) APTT (22.0-30.0) sec Sodium (137-145) mmol/L Potassium (3.5-5.1) mmol/L Chloride (98-107) mmol/L Carbon Dioxide (22-30) mmol/L Anion Gap mmol/L BUN (9-20) mg/dL Creatinine (0.66-1.25) mg/dL Est GFR (CKD-EPI)AfAm (>60 ml/min/1.73 sqM) Est GFR (CKD-EPI)NonAf (>60 ml/min/1.73 sqM) Glucose (74-99) mg/dL POC Glucose (mg/dL) 97 (75-99) mg/dL POC Glu Soil Science Professor ID Emperatriz Boucher Calcium (8.4-10.2) mg/dL Total Bilirubin (0.2-1.3) mg/dL AST (17-59) U/L ALT (4-49) U/L Alkaline Phosphatase (38-126) U/L Ammonia (<30) umol/L Troponin I 0.029 (0.000-0.034) ng/mL Total Protein (6.3-8.2) g/dL Albumin (3.5-5.0) g/dL Urine Color Urine Appearance (Clear) Urine pH (5.0-8.0) Ur Specific [place] (1.001-1.035) Urine Protein (Negative) Urine Glucose (UA) (Negative) Urine Ketones (Negative) Urine Blood (Negative) Urine Nitrite (Negative) Urine Bilirubin (Negative) Urine Urobilinogen (<2.0) mg/dL Ur Leukocyte Esterase (Negative) Urine RBC (0-5) /hpf Urine WBC (0-5) /hpf Ur Squamous Epith Cells (0-4) /hpf Hyaline Casts (0-2) /lpf Stool Occult Blood (Negative) Urine Opiates Screen (NotDetected) Ur Oxycodone Screen (NotDetected) Urine Methadone Screen (NotDetected) Ur Propoxyphene Screen (NotDetected) Ur Barbiturates Screen (NotDetected) U Tricyclic Antidepress (NotDetected) Ur Phencyclidine Scrn (NotDetected) Ur Amphetamines Screen (NotDetected) U Methamphetamines Scrn (NotDetected) U Benzodiazepines Scrn (NotDetected) Urine Cocaine Screen (NotDetected) U Marijuana (THC) Screen (NotDetected) Serum Alcohol mg/dL Coronavirus (PCR) Not Detected (Not Detectd) 06/26/21 06/26/21 06/26/21 Range/Units 11:50 11:57 12:28 WBC (3.8-10.6) k/uL RBC (4.30-5.90) m/uL Hgb (13.0-17.5) gm/dL Hct (39.0-53.0) % MCV (80.0-100.0) fL MCH (25.0-35.0) pg MCHC (31.0-37.0) g/dL RDW (11.5-15.5) % Plt Count (150-450) k/uL MPV Neutrophils % % Lymphocytes % % Monocytes % % Eosinophils % % Basophils % % Neutrophils # (1.3-7.7) k/uL Lymphocytes # (1.0-4.8) k/uL Monocytes # (0-1.0) k/uL Eosinophils # (0-0.7) k/uL Basophils # (0-0.2) k/uL Hypochromasia Macrocytosis PT (9.0-12.0) sec INR (<1.2) APTT (22.0-30.0) sec Sodium (137-145) mmol/L Potassium (3.5-5.1) mmol/L Chloride (98-107) mmol/L Carbon Dioxide (22-30) mmol/L Anion Gap mmol/L BUN (9-20) mg/dL Creatinine (0.66-1.25) mg/dL Est GFR (CKD-EPI)AfAm (>60 ml/min/1.73 sqM) Est GFR (CKD-EPI)NonAf (>60 ml/min/1.73 sqM) Glucose (74-99) mg/dL POC Glucose (mg/dL) (75-99) mg/dL POC Glu Soil Science Professor ID Calcium (8.4-10.2) mg/dL Total Bilirubin (0.2-1.3) mg/dL AST (17-59) U/L ALT (4-49) U/L Alkaline Phosphatase (38-126) U/L Ammonia 35 H (<30) umol/L Troponin I (0.000-0.034) ng/mL Total Protein (6.3-8.2) g/dL Albumin (3.5-5.0) g/dL Urine Color Yellow Urine Appearance Cloudy (Clear) Urine pH 5.5 (5.0-8.0) Ur Specific [place] 1.016 (1.001-1.035) Urine Protein 2+ H (Negative) Urine Glucose (UA) Negative (Negative) Urine Ketones Negative (Negative) Urine Blood Negative (Negative) Urine Nitrite Negative (Negative) Urine Bilirubin Negative (Negative) Urine Urobilinogen 4.0 (<2.0) mg/dL Ur Leukocyte Esterase Negative (Negative) Urine RBC 1 (0-5) /hpf Urine WBC 2 (0-5) /hpf Ur Squamous Epith Cells 1 (0-4) /hpf Hyaline Casts 38 H (0-2) /lpf Stool Occult Blood Positive (Negative) Urine Opiates Screen Not Detected (NotDetected) Ur Oxycodone Screen Not Detected (NotDetected) Urine Methadone Screen Not Detected (NotDetected) Ur Propoxyphene Screen Not Detected (NotDetected) Ur Barbiturates Screen Not Detected (NotDetected) U Tricyclic Antidepress Not Detected (NotDetected) Ur Phencyclidine Scrn Not Detected (NotDetected) Ur Amphetamines Screen Not Detected (NotDetected) U Methamphetamines Scrn Detected H (NotDetected) U Benzodiazepines Scrn Not Detected (NotDetected) Urine Cocaine Screen Not Detected (NotDetected) U Marijuana (THC) Screen Detected H (NotDetected) Serum Alcohol mg/dL Coronavirus (PCR) (Not Detectd) Critical Care Time Critical Care Time: Yes Total Critical Care Time: 35 Disposition Clinical Impression: Alcoholic intoxication, Altered mental status, New onset atrial fibrillation, COPD exacerbation, Hepatic encephalopathy, Renal insufficiency, Hyponatremia, Methamphetamine abuse, GI bleed Disposition: ADMITTED IP TO THIS HOSP Referrals: Janey Wallace, MIKKI [Primary Care Provider] - 1-2 days Time of Disposition: 14:13
[2021-06-26 12:09] LABS: Appearance,Urine Cloudy (Clear); Bilirubin,Urine Negative (Negative); Blood,Urine Negative (Negative); Color,Urine Yellow; Glucose,Urine (UA) Negative (Negative); Hyaline Casts,Urine 38 /lpf (0-2); Ketones,Urine Negative (Negative); Leukocyte Esterase,Urine Negative (Negative); Nitrite,Urine Negative (Negative); PH, Urine 5.5 (5.0-8.0); Protein,Urine 2+ (Negative); RBC,Urine 1 /hpf (0-5); Specific Gravity,Urine 1.016 (1.001-1.035); Squamous Epithelial Cell,Urine 1 /hpf (0-4); WBC,Urine 2 /hpf (0-5)
[2021-06-26 12:20] LABS: Amphetamine Screen,Urine Not Detected (NotDetected); Barbiturate Screen,Urine Not Detected (NotDetected); Benzodiazepines Screen,Urine Not Detected (NotDetected); Cocaine Screen,Urine Not Detected (NotDetected); Methadone Screen, Urine Not Detected (NotDetected); Opiate Screen,Urine Not Detected (NotDetected); Oxycodone Screen, Urine Not Detected (NotDetected); Phencyclidine Screen,Urine Not Detected (NotDetected); Tricyclic Antidepressant,Urine Not Detected (NotDetected); Urn Cannabinoid Scrn Detected (NotDetected)
--- NOTE | 2021-06-26 12:22 | CT ---
EXAMINATION TYPE: CT brain wo con DATE OF EXAM: 06/26/2021 HISTORY: altered mental status CT DLP: 1099.4 mGycm. Automated Exposure Control for Dose Reduction was Utilized. TECHNIQUE: CT scan of the head is performed without contrast. COMPARISON: CT brain 2019. FINDINGS: There is no acute intracranial hemorrhage or midline shift identified. There is mild diff use ventricular and sulcal prominence consistent with diffuse age-related cerebral atrophy. There is moderate low-attenuation in the periventricular white matter consistent with chronic small vessel is chemic change in patient of this age. Mild mucosal thickening in the inferior left maxillary sinus wi th 2.1 cm posterior inferior mucus retention cyst or polyp in the posterior inferior right maxillary sinus. Patchy opacification of the inferior mastoid air cells is new from prior. Globes are intact bi laterally. Bilateral proptosis redemonstrated. IMPRESSION: No acute intracranial hemorrhage or midline shift. There is mild diffuse age-related ce rebral atrophy and moderate nonspecific white matter changes favor product of chronic small vessel is chemic change and patient this age redemonstrated. Possible mild right-sided mastoiditis, correlate c linically with point tenderness at this level.
--- NOTE | 2021-06-26 13:05 | XR ---
EXAMINATION TYPE: XR chest 2V DATE OF EXAM: 06/26/2021 COMPARISON: Chest x-ray October 30, 2020 HISTORY: Altered mental status and weakness. TECHNIQUE: Frontal and lateral views of the chest are obtained. FINDINGS: There are reticular interstitial changes present bilaterally without suspicious new focal air space opacity or pneumothorax seen. Stable cardiomegaly. Tiny bilateral pleural effusions on late ral view. The osseous structures are intact. IMPRESSION: Cardiomegaly with tiny bilateral pleural effusions on lateral view and possible mild inte rstitial edema bilaterally. Correlate for CHF exacerbation.
[2021-06-26] MEDS ORDERED: THIAMINE 100 MG/ML 2 ML VIAL IM STA (14:10)
[2021-06-26] MEDS ORDERED: LORazepam 2 MG/ML INJ IV PRN ×2 (14:10)
[2021-06-26] MEDS ORDERED: SODIUM CHLORIDE 0.9% 1,000 ML IV SCH (14:15)
--- NOTE | 2021-06-26 14:40 | P.HPIM ---
History of Present Illness H&P Date: 06/26/21 Chief Complaint: Alcohol intoxication with metabolic insult 61 year old male with history of hypertension, atrial fibrillation, atrial flutter, alcohol abuse, COPD who has been seen multiple times in the ER for alcohol intoxication and suicidal ideation in the past was brought in by EMS as his roommate found him unresponsive. Patient drinks daily half a gallon. Patient evaluated in the ER. He would wake up intermittently say a few words and go back to sleep. Patient appears trunk, sees he wants to and appears that he is seeing things in the room as he is pointing at lopes. Patient is unable to maintain eye contact as he drifts into sleep. She received breathing treatment on his way to the hospital and also endorses before he came to the hospital. He received another nebulizing treatment before I evaluated him. Patient continues to wheeze significantly on evaluation. He denies any cough or shortness of breath or chest pain. Patient was afebrile tachycardic at 106, respiratory rate of 15 blood pressure 107/78 oxygen saturation 89% on room air improved to 97% on 2 L. EKG was obtained showed A. fib with rapid response of response at 120 CT of the brain was negative for any acute abnormality does have acute mastoiditis. Chest x-ray suggestive of mild congestive heart failure. Labs are reviewed patient has a WBC of 4.2 hemoglobin 12.7 sodium 118 chloride 82 bicarb 22 BUN 37 creatinine is 0.03. Ammonia level is a 25 alcohol level 218Patient is alcohol intoxication with suicidal ideation. Sitter at bedside ordered. We will discontinue IV fluids as patient appears volume overloaded. Solu-Medrol was initiated at 60 IV every 6 with DuoNeb's with pulmonary consult. Sodium levels with the acetaminophen urine osmolality were ordered. Nephrology consulted for management of sodium. ROS Could not be obtained Social history Could not be obtained Family history Could not be obtained Physical exam - Constitutional General appearance: uncooperative, drowsy wakes up intermittently to answer question and drifts back to sleep, obese - EENT Eyes: anicteric sclerae, PERRLA, normal appearance conjunctival injection ENT: hearing grossly normal - Neck Neck: no lymphadenopathy, normal ROM, no other, no rigidity, no stridor, no thyromegaly - Respiratory Respiratory: Decreased air entry with diffuse inspiratory and expiratory wheezing - Cardiovascular Rhythm: Irregularly irregular tachycardic Heart sounds: normal: S1, S2 Abnormal Heart Sounds: no systolic murmur, no diastolic murmur, no rub, no S3 Gallop, no S4 Gallop, no click, no other - Gastrointestinal General gastrointestinal: normal bowel sounds, soft nontender but distended - Integumentary Integumentary: There is full extremities appear flushed with 1+ pitting edema, peripheral pulses 2+ with less than 2 second capillary refill, purplish discoloration of toes - Neurologic Neurologic: Could not be assessed as patient is noncooperative, does move all ex tremities gait could not - Musculoskeletal Musculoskeletal: Gait could not be assessed strength equal bilaterally - Psychiatric Psychiatric: drowsyO X1 , Assessment and plan #1 acute metabolic encephalopathy secondary to alcohol intoxication and hyponatremia and elevated ammonia levels patient received 1-1/2 L of IV fluids. Seizure precautions ordered. Fall precautions #2 acute alcohol intoxication with alcohol dependence with history of alcohol withdrawal including DTs alcohol withdrawal protocol initiated. Vitamin supplemented. Alcohol level high #3 acute suicidal thoughts. Placed on suicidal precautions. Psychiatry consulted #4 thrombocytopenia secondary to alcohol abuse and liver dysfunction continue to monitor hold anticoagulants #5 hyponatremia secondary to beer potomania urine studies ordered nephrology consulted. Repeat sodium ordered #6 acute hypoxic respiratory failure with evidence of volume overload on chest x-ray Lasix IV 40 twice a day initiated 1+ pitting edema also noted on the lower extremities.. Patient received 1-1/2 L of IV fluids in the ER and discontinue IV fluids at this moment Continuing diuretics. I&O monitoring daily weights. #7 acute COPD exacerbation the drainage is 60 IV every 6 DuoNeb's as needed for shortness of breath. Sputum culture ordered. Pulmonary consult placed #8 microscopic bleed per rectum positive fecal occult hemoglobin stable continue monitor CBC may be related to gastritis secondary to alcohol abuse will start patient on Protonix 40 once daily #9 polysubstance abuse urine drug screen positive for meth and THC. Continue to monitor vitals. EKG negative for any ST or T-wave changes #10 acute kidney injury secondary to AtN. hold iv fluids due to volume overload . Repeat CMP #11 acute A. fib with RVR. Cardizem initiated at 180 mg by mouth daily. Patient is fecal occult is positive we'll hold Eliquis for now. #10 code status full code #11 DVT prophylaxis hold anticoagulation due to thrombocytopenia #12 disposition patient need 1-2 inpatient days for stabilization with possible placement at [facility] Past Medical History Past Medical History: Atrial Fibrillation, COPD, Hypertension History of Any Multi-Drug Resistant Organisms: None Reported Past Surgical History: No Surgical Hx Reported Past Anesthesia/Blood Transfusion Reactions: No Reported Reaction Past Psychological History: Depression Smoking Status: Current every day smoker Past Alcohol Use History: Abuse, Daily, Heavy Past Drug Use History: Marijuana Medications and Allergies Home Medications Medication Instructions Recorded Confirmed Type Unable To Assess [Unable to Assess] 06/26/21 06/26/21 History Allergies Allergy/AdvReac Type Severity Reaction Status Date / Time No Known Allergies Allergy Verified 06/26/21 11:56 Physical Exam Vitals: Vital Signs Temp Pulse Resp BP Pulse Ox 06/26/21 13:54 100 20 132/90 100 06/26/21 13:30 104 H 06/26/21 13:22 96 06/26/21 11:06 110 H 20 110/72 97 06/26/21 10:25 97.8 F 106 H 15 107/78 89 L Intake and Output 06/25/21 06/26/21 06/26/21 22:59 06:59 14:59 Other: Weight 110.677 kg Results CBC & Chem 7: 06/26/21 14:31 06/26/21 11:04 Labs: Abnormal Lab Results - Last 24 Hours (Table) 06/26/21 06/26/21 06/26/21 Range/Units 11:04 11:04 11:50 RBC 4.14 L (4.30-5.90) m/uL Hgb 12.7 L (13.0-17.5) gm/dL MCV 100.9 H (80.0-100.0) fL MCHC 30.3 L (31.0-37.0) g/dL Plt Count 116 L (150-450) k/uL Lymphocytes # 0.6 L (1.0-4.8) k/uL Sodium 118 L* (137-145) mmol/L Chloride 82 L (98-107) mmol/L BUN 37 H (9-20) mg/dL Creatinine 2.03 H (0.66-1.25) mg/dL Calcium 8.0 L (8.4-10.2) mg/dL AST 61 H (17-59) U/L Ammonia (<30) umol/L Urine Protein 2+ H (Negative) Hyaline Casts 38 H (0-2) /lpf U Methamphetamines Scrn Detected H (NotDetected) U Marijuana (THC) Screen Detected H (NotDetected) Serum Alcohol 277 H* mg/dL 06/26/21 Range/Units 11:57 RBC (4.30-5.90) m/uL Hgb (13.0-17.5) gm/dL MCV (80.0-100.0) fL MCHC (31.0-37.0) g/dL Plt Count (150-450) k/uL Lymphocytes # (1.0-4.8) k/uL Sodium (137-145) mmol/L Chloride (98-107) mmol/L BUN (9-20) mg/dL Creatinine (0.66-1.25) mg/dL Calcium (8.4-10.2) mg/dL AST (17-59) U/L Ammonia 35 H (<30) umol/L Urine Protein (Negative) Hyaline Casts (0-2) /lpf U Methamphetamines Scrn (NotDetected) U Marijuana (THC) Screen (NotDetected) Serum Alcohol mg/dL
[2021-06-26 14:43] LABS: Basophils % (A) 0 %; Eosinophils # (A) 0.1 k/uL (0-0.7); Eosinophils % (A) 1 %; HGB 12.4 gm/dL (13.0-17.5); Hypochromasia Slight; Lymphocytes # (A) 0.2 k/uL (1.0-4.8); Lymphocytes % (A) 4 %; MCH 31.4 pg (25.0-35.0); MCHC 31.1 g/dL (31.0-37.0); Macrocytosis Slight; Mean Platelet Volume 8.1; Monocytes # (A) 0.1 k/uL (0-1.0); Monocytes % (A) 2 %; Neutrophils # (A) 4.4 k/uL (1.3-7.7); Neutrophils % (A) 91 %; Platelet Count 103 k/uL (150-450); RBC 3.96 m/uL (4.30-5.90); RDW 15.3 % (11.5-15.5); WBC 4.9 k/uL (3.8-10.6)
[2021-06-26 14:48] LABS: Acetaminophen <10.0 ug/mL; Sodium 120 mmol/L (137-145)
[2021-06-26 15:22] LABS: Albumin 3.5 g/dL (3.5-5.0); Calcium 7.8 mg/dL (8.4-10.2); Total Bilirubin 0.9 mg/dL (0.2-1.3); Total Protein 5.9 g/dL (6.3-8.2)
[2021-06-26] MEDS: PANTOPRAZOLE 40 MG TABLET PO SCH (16:44)
[2021-06-26] MEDS: DILTIAZEM CD 180 MG CAP.ER.24H PO SCH (16:44)
[2021-06-26] MEDS: methylPREDNISolone SOD SUCCI 125 MG/2 ML VIAL IV SCH (16:48)
[2021-06-26] MEDS: FUROSEMIDE 10 MG/ML 4 ML VIAL IV SCH (20:27)
[2021-06-26] MEDS: LACTULOSE 20 GM/30 ML CUP PO SCH (20:28)
[2021-06-26 20:59] LABS: Basophils % (A) 0 %; Eosinophils % (A) 1 %; HCT 39.6 % (39.0-53.0); Hypochromasia Marked; Lymphocytes # (A) 0.3 k/uL (1.0-4.8); Lymphocytes % (A) 6 %; MCHC 30.4 g/dL (31.0-37.0); MCV 105.1 fL (80.0-100.0); Macrocytosis Moderate; Mean Platelet Volume 8.6; Monocytes # (A) 0.1 k/uL (0-1.0); Monocytes % (A) 3 %; Neutrophils % (A) 89 %; RBC 3.76 m/uL (4.30-5.90); RDW 15.1 % (11.5-15.5); WBC 4.5 k/uL (3.8-10.6)
[2021-06-26] MEDS ORDERED: HEPARIN SODIUM,PORCINE/PF 5,000 UNIT/0.5 ML SYRINGE SQ SCH (21:00)
[2021-06-26 21:08] LABS: Platelet Count 76 k/uL (150-450)
[2021-06-27] MEDS: methylPREDNISolone SOD SUCCI 125 MG/2 ML VIAL IV SCH ×4 (00:13→16:11)
[2021-06-27] MEDS: ONDANSETRON 4 MG/2 ML VIAL IVP PRN (00:13)
[2021-06-27] MEDS: LORazepam 2 MG/ML INJ IV PRN ×4 (06:40→18:50)
[2021-06-27] MEDS: PANTOPRAZOLE 40 MG TABLET PO SCH (06:43)
--- NOTE | 2021-06-27 07:13 | XR ---
EXAMINATION TYPE: XR chest 1V portable DATE OF EXAM: 06/27/2021 6:36 AM COMPARISON:Chest radiograph from one day prior. TECHNIQUE: Frontal view of the chest. CLINICAL INDICATION:Male, 61 years old with history of chf; FINDINGS: Lungs/Pleura: More conspicuous opacities within the lung bases on today's exam. There is increased hortencia cency in the lung apices. Pulmonary vascularity: Pulmonary vascular congestion. Heart/mediastinum: Cardiomediastinal silhouette is enlarged and stable. Musculoskeletal: No acute osseous pathology. IMPRESSION: 1. Right lower lateral airspace opacity along with a left lower airspace opacity history for developi ng infectious process. 2. Stable cardiomegaly and mild pulmonary vascular congestion. 3. COPD changes.
[2021-06-27] MEDS: DILTIAZEM CD 180 MG CAP.ER.24H PO SCH (08:32)
[2021-06-27] MEDS: FUROSEMIDE 10 MG/ML 4 ML VIAL IV SCH (08:32)
[2021-06-27] MEDS: LACTULOSE 20 GM/30 ML CUP PO SCH ×2 (08:32→20:53)
[2021-06-27] MEDS: NICOTINE 21MG/24HR PATCH TRANSDERM SCH (08:33)
[2021-06-27] MEDS ORDERED: FAMOTIDINE 20 MG TAB PO SCH (09:00)
[2021-06-27] MEDS: IPRATROPIUM-ALBUTEROL 3 ML NEB INHALATION PRN (11:58)
--- NOTE | 2021-06-27 13:53 | P.CNPUL ---
History of Present Illness Consult date: 06/27/21 Requesting physician: Lashawn Melgar Reason for consult: dyspnea, abnormal CXR/CT Chief complaint: Altered mental status History of present illness: This is a 61-year-old male patient with a history of atrial fibrillation, hypertension, depression, chronic obstructive pulmonary disease with chronic and ongoing tobacco dependence, D we have a alcohol use, marijuana use. He was brought into the emergency room yesterday after his roommate found him unresponsive. In the emergency room he was more awake he denied even wanted to be at the hospital. He denied any suicidal/homicidal ideations. He was having issues with shortness of breath. No chest pain. No abdominal pain. No nausea or vomiting. Computed tomography scan of the brain revealed no acute intracranial hemorrhage or midline shift. There is mild diffuse age-related cerebral atrophy and moderate nonspecific white matter changes. Chest x-ray revealed evidence of cardiomegaly with tiny bilateral pleural effusions and mild interstitial edema suspected CHF. EKG revealed atrial fibrillation with a right bundle branch block and white count 4.5. Hemoglobin 12.0. Platelet count 76,000. Sodium 120. Potassium 5.0. BUN 41. Creatinine 1.88. Troponins negative 2. ProBNP 2300. Serum osmolality 332. Urine osmolality 382. Urine random sodium less than 20. Stool for occult blood positive. Urine drug screen positive for methamphetamines and marijuana. The patient is seen today in consultation on the selective care unit. He is currently resting fairly comfortably in bed. He is confused at times. Trying to get out of bed. [facility] consultant is at the bedside. He is maintaining O2 saturations at 90% on 3 L/m per nasal cannula. He's been afebrile. Hemodynamically stable. Today's chest x- ray reveals a right lower lobe opacity with the left lower lobe opacity developing infectious process. Stable cardiomegaly and mild pulmonary vascular congestion. Evidence of COPD. He's been initiated on IV Solu-Medrol, bronchodilators, IV diuretics. NicoDerm patch in place. He is in the CIWA protocol. Review of Systems ROS unobtainable: due to mental status Past Medical History Past Medical History: Atrial Fibrillation, COPD, Hypertension History of Any Multi-Drug Resistant Organisms: None Reported Past Surgical History: No Surgical Hx Reported Past Anesthesia/Blood Transfusion Reactions: No Reported Reaction Past Psychological History: Depression Smoking Status: Current every day smoker Past Alcohol Use History: Abuse, Daily, Heavy Additional Past Alcohol Use History / Comment(s): Patient states he drinks a fifth of vodka daily Past Drug Use History: Marijuana Additional Drug Use History / Comment(s): Patient states he does not do meth, but the people he lives with do. Medications and Allergies Home Medications Medication Instructions Recorded Confirmed Type Unable To Assess [Unable to Assess] 06/26/21 06/26/21 History Allergies Allergy/AdvReac Type Severity Reaction Status Date / Time No Known Allergies Allergy Verified 06/26/21 11:56 Physical Exam Vitals: Vital Signs Temp Pulse Pulse Resp BP BP Pulse Ox 06/27/21 12:12 90 06/27/21 12:00 84 18 128/58 90 L 06/27/21 11:58 90 06/27/21 08:00 55 L 20 160/70 92 L 06/27/21 03:28 97.8 F 81 18 141/78 97 06/27/21 03:05 18 06/26/21 23:28 97.8 F 108 H 18 108/67 90 L 06/26/21 20:24 97.9 F 117 H 18 138/79 100 06/26/21 18:34 108 H 19 06/26/21 18:33 97.5 F L 108 H 19 157/76 94 L 06/26/21 17:35 97.8 F 103 H 18 133/84 100 06/26/21 17:00 103 H 18 133/84 06/26/21 15:00 112 H 18 123/72 06/26/21 13:54 100 20 132/90 100 06/26/21 13:30 104 H Intake and Output 06/26/21 06/27/21 06/27/21 22:59 06:59 14:59 Intake Total 240 Output Total 1700 Balance 240 -1700 Intake: Oral 240 Output: Urine 1700 Other: Voiding Method Indwelling Catheter Indwelling Catheter Indwelling Catheter # Bowel Movements 1 Weight 110.677 kg GENERAL EXAM: Alert, altered, 61-year-old male patient, on 3 L nasal cannula, comfortable in no apparent distress. HEAD: Normocephalic. EYES: Normal reaction of pupils, equal size. NOSE: Clear with pink turbinates. THROAT: No erythema or exudates. NECK: No masses, no JVD. CHEST: No chest wall deformity. LUNGS: Equal air entry with bibasilar crackles. CVS: S1 and S2 normal with no audible murmur, regular rhythm. ABDOMEN: No hepatosplenomegaly, normal bowel sounds, no guarding or rigidity. SPINE: No scoliosis or deformity SKIN: No rashes CENTRAL NERVOUS SYSTEM: Difficult to assess. No focal deficits, tone is normal in all 4 extremities. EXTREMITIES: There is trace peripheral edema. No clubbing, no cyanosis. Peripheral pulses are intact. Results - Laboratory Findings CBC and BMP: 06/26/21 20:45 06/26/21 14:31 PT/INR, D-dimer PT 10.3 sec (9.0-12.0) 06/26/21 11:04 INR 1.0 (<1.2) 06/26/21 11:04 Abnormal lab findings: Abnormal Labs 06/26/21 06/26/21 06/26/21 11:04 11:04 11:50 RBC 4.14 L Hgb 12.7 L MCV 100.9 H MCHC 30.3 L Plt Count 116 L Lymphocytes # 0.6 L Sodium 118 L* Chloride 82 L Carbon Dioxide BUN 37 H Creatinine 2.03 H Glucose Osmolality Calcium 8.0 L AST 61 H Ammonia Total Protein Procalcitonin Urine Protein 2+ H Hyaline Casts 38 H Ur Random Sodium U Methamphetamines Scrn Detected H U Marijuana (THC) Screen Detected H Serum Alcohol 277 H* 06/26/21 06/26/21 06/26/21 11:57 14:31 14:31 RBC Hgb MCV MCHC Plt Count Lymphocytes # Sodium 120 L Chloride Carbon Dioxide BUN Creatinine Glucose Osmolality 332 H* Calcium AST Ammonia 35 H Total Protein Procalcitonin 0.32 H Urine Protein Hyaline Casts Ur Random Sodium U Methamphetamines Scrn U Marijuana (THC) Screen Serum Alcohol 06/26/21 06/26/21 06/26/21 14:31 14:31 14:31 RBC 3.96 L Hgb 12.4 L MCV 101.0 H MCHC Plt Count 103 L Lymphocytes # 0.2 L Sodium 120 L Chloride 84 L Carbon Dioxide 18 L BUN 41 H Creatinine 1.88 H Glucose 103 H Osmolality Calcium 7.8 L AST 61 H Ammonia Total Protein 5.9 L Procalcitonin Urine Protein Hyaline Casts Ur Random Sodium <20 L U Methamphetamines Scrn U Marijuana (THC) Screen Serum Alcohol 06/26/21 20:45 RBC 3.76 L Hgb 12.0 L MCV 105.1 H MCHC 30.4 L Plt Count 76 L Lymphocytes # 0.3 L Sodium Chloride Carbon Dioxide BUN Creatinine Glucose Osmolality Calcium AST Ammonia Total Protein Procalcitonin Urine Protein Hyaline Casts Ur Random Sodium U Methamphetamines Scrn U Marijuana (THC) Screen Serum Alcohol - Diagnostic Findings Chest x-ray: image reviewed Assessment and Plan Assessment: 1 Acute altered mental status of unclear etiology, urine drug screen positive for methamphetamines and marijuana, hyponatremia, hypoxemia 2 Acute hypoxemic respiratory failure secondary to suspected congestive heart failure, COPD exacerbation, early infiltrates and possible apiration pneumonia 3 Hyponatremia suspect secondary to daily alcohol use 4 Acute renal failure suspect secondary to dehydration 5 Thrombocytopenia secondary to daily alcohol use 6 Daily heavy alcohol use 7 Marijuana use 8 Chronic tobacco dependence 9 Stool for occult blood positive Plan: The patient was seen and evaluated Chest x-ray and labs reviewed We will add Zosyn Continue IV Solu-Medrol, bronchodilators Continue IV diuretics Nicoderm patch in place Educated regarding the importance of smoking cessation Educated regarding the importance of marijuana, drug use cessation Educated regarding the importance of alcohol cessation Remains on the [facility] protocol [facility] consultant at the bedside We will continue to follow and make further recommendations based on his clinical status I, the cosigning physician, performed a history & physical examination of the patient. Lungs sounds bibasilar crackles. Maintaining good O2 saturations in the 90s on 2 L/m per nasal cannula. I discussed the assessment and plan of care with my nurse practitioner, Tiffanie Marr. I attest to the above consultation as dictated by her. Time with Patient: Greater than 30
[2021-06-27] MEDS: PIPERACILLIN-TAZOBACTAM 3.375 GM in SODIUM CHLORIDE 0.9% 100 ML IVPB SCH (16:11)
[2021-06-27 16:15] LABS: Basophils % (A) 0 %; Eosinophils # (A) 0.1 k/uL (0-0.7); Eosinophils % (A) 1 %; HCT 33.8 % (39.0-53.0); HGB 10.3 gm/dL (13.0-17.5); Hypochromasia Moderate; Lymphocytes # (A) 0.3 k/uL (1.0-4.8); Lymphocytes % (A) 4 %; MCH 31.4 pg (25.0-35.0); MCHC 30.4 g/dL (31.0-37.0); MCV 103.1 fL (80.0-100.0); Macrocytosis Slight; Mean Platelet Volume 9.1; Monocytes % (A) 11 %; Neutrophils # (A) 7.7 k/uL (1.3-7.7); Neutrophils % (A) 82 %; RBC 3.28 m/uL (4.30-5.90); RDW 15.2 % (11.5-15.5); WBC 9.4 k/uL (3.8-10.6)
[2021-06-27 16:18] LABS: Platelet Count 124 k/uL (150-450)
--- NOTE | 2021-06-27 16:48 | P.NPCON ---
History of Present Illness - Reason for Consult Consult date: 06/27/21 acute renal failure, hyponatremia - Chief Complaint Hyponatremia and acute kidney injury - History of Present Illness 61-year-old gentleman coming to the hospital with encephalopathy. He has a sitt er at bedside. History of chronic alcohol abuse, as per him he had cheap vodka. Sodium was 118 on presentation, with the osmolality of 332 with the osmolality gap of 15. His alcohol level was 277. He denies any toxic alcohol ingestion. Initially was given IV fluids, currently on Lasix. No repeat BMP to compare. Denies any NSAID use or recent contrast study. Very poor historian. Review of Systems Constitutional: Reports as per HPI Past Medical History Past Medical History: Atrial Fibrillation, COPD, Hypertension History of Any Multi-Drug Resistant Organisms: None Reported Past Surgical History: No Surgical Hx Reported Past Anesthesia/Blood Transfusion Reactions: No Reported Reaction Past Psychological History: Depression Smoking Status: Current every day smoker Past Alcohol Use History: Abuse, Daily, Heavy Additional Past Alcohol Use History / Comment(s): Patient states he drinks a fifth of vodka daily Past Drug Use History: Marijuana Additional Drug Use History / Comment(s): Patient states he does not do meth, but the people he lives with do. Medications and Allergies Home Medications Medication Instructions Recorded Confirmed Type Unable To Assess [Unable to Assess] 06/26/21 06/26/21 History Allergies Allergy/AdvReac Type Severity Reaction Status Date / Time No Known Allergies Allergy Verified 06/26/21 11:56 Physical Exam Vitals: Vital Signs Temp Pulse Pulse Resp BP BP Pulse Ox 06/27/21 16:00 81 16 113/57 84 L 06/27/21 12:12 90 06/27/21 12:00 84 18 128/58 90 L 06/27/21 11:58 90 06/27/21 08:00 55 L 20 160/70 92 L 06/27/21 03:28 97.8 F 81 18 141/78 97 06/27/21 03:05 18 06/26/21 23:28 97.8 F 108 H 18 108/67 90 L 06/26/21 20:24 97.9 F 117 H 18 138/79 100 06/26/21 18:34 108 H 19 06/26/21 18:33 97.5 F L 108 H 19 157/76 94 L 06/26/21 17:35 97.8 F 103 H 18 133/84 100 06/26/21 17:00 103 H 18 133/84 Intake and Output 06/27/21 06/27/21 06/27/21 06:59 14:59 22:59 Intake Total 250 Output Total 1700 Balance -1700 250 Intake: Intake, IV Titration 100 Amount Piperacillin-Tazobactam 3 100 .375 gm In Sodium Chloride 0.9% 100 ml @ 25 mls/hr IVPB Q8HR [facility] Rx# :[id number] Oral 150 Output: Urine 1700 Other: Voiding Method Indwelling Catheter Indwelling Catheter Weight 110.677 kg No acute distress S1-S2 heard Decreased breath sounds Edema Results - Lab Results Most recent lab results Calcium 7.8 mg/dL (8.4-10.2) L 06/26/21 14:31 06/27/21 15:20 06/26/21 14:31 Assessment and Plan Assessment: #1 hyperosmolar hyponatremia secondary to alcohol. -With high alcohol levels toxic alcohol less likely. -Urine sodium less than 20. #2 acute kidney injury suspect that hemodynamic ATN with low blood pressures. -Baseline creatinine 1.0 MG per DL. Creatinine was 2.2 on admission. #3 volume overload with lower extremity edema #4 ETH abuse #5 suicidal ideation with history of depression Plan: #1 follow-up on repeat BMP. #2 if serum sodium still low add Lasix 20 mg IV twice a day. #3 repeat labs again in the morning. #4 avoid nephrotoxic agents.
--- NOTE | 2021-06-27 17:47 | P.PN ---
Subjective Progress Note Date: 06/27/21 61 year old male with history of hypertension, atrial fibrillation, atrial flutter, alcohol abuse, COPD who has been seen multiple times in the ER for alcohol intoxication and suicidal ideation in the past was brought in by EMS as his roommate found him unresponsive. Patient drinks daily half a gallon. Patient evaluated in the ER. He would wake up intermittently say a few words and go back to sleep. Patient appears trunk, sees he wants to and appears that he is seeing things in the room as he is pointing at lopes. Patient is unable to maintain eye contact as he drifts into sleep. She received breathing treatment on his way to the hospital and also endorses before he came to the hospital. He received another nebulizing treatment before I evaluated him. Patient continues to wheeze significantly on evaluation. He denies any cough or shortness of breath or chest pain. Patient was afebrile tachycardic at 106, respiratory rate of 15 blood pressure 107/78 oxygen saturation 89% on room air improved to 97% on 2 L. EKG was obtained showed A. fib with rapid response of response at 120 CT of the brain was negative for any acute abnormality does have acute mastoiditis. Chest x-ray suggestive of mild congestive heart failure. Labs are reviewed patient has a WBC of 4.2 hemoglobin 12.7 sodium 118 chloride 82 bicarb 22 BUN 37 creatinine is 0.03. Ammonia level is a 25 alcohol level 218Patient is alcohol intoxication with suicidal ideation. Sitter at bedside ordered. We will discontinue IV fluids as patient appears volume overloaded. Solu-Medrol was initiated at 60 IV every 6 with DuoNeb's with pulmonary consult. Sodium levels with the acetaminophen urine osmolality were ordered. Nephrology consulted for management of sodium. 06/27 patient evaluated bedside is alert and answer questions appropriately. Sitter at bedside. Patient is currently 84% on 3 L of oxygen. Repeat chest x- ray suggestive of right lower lid and a troponin airspace opacity along with le ft lower airspace opacity with developing infectious process with COPD changes ROS Constitutional: Denies chills, Denies fever, endorses lethargy Denies poor appetite, endorses weakness, Denies weight loss Eyes: denies decreased vision, denies diplopia, denies discharge, denies pain Ears: deny: decreased hearing Ears, nose, mouth and throat: Denies dental pain, Denies headache, Denies nasal discharge, Denies nose pain Cardiovascular: Denies chest pain, Denies decreased exercise tolerance, Denies edema, Denies high blood pressure, Denies irregular heart beat, Denies palpitations, Denies paroxysmal nocturnal dyspnea, Denies rapid heart beat, Denies shortness of breath Respiratory: Endorses endorsesnies dyspnea, Denies home oxygen, Denies wheezing Gastrointestinal: Denies abdominal pain, Denies change in bowel habits, Denies coffee ground emesis, Denies early satiety, Denies excessive gas, Denies heartburn, Denies hematemesis, Denies hematochezia, Denies loss of appetite, Denies nausea, Denies vomiting Genitourinary: Denies dysuria, Denies flank pain, Denies kidney stones, Denies menorrhagia, Denies urgency, Denies urinary frequency Musculoskeletal: Denies gait dysfunction, Denies limitation of motion, Denies morning stiffness, Denies muscle cramps Integumentary: Denies rash, Denies wounds, Denies brittle nails, Denies change in hair/nails, Denies darkening of skin Neurological: Denies balance difficulties, Denies change in speech, Denies double vision, Denies gait dysfunction, Denies loss of vision, Denies motor disturbance, Denies numbness, Denies paralysis, Denies paresthesias, Denies seizures Psychiatric: Denies anxiety, Denies depression Endocrine: Denies excessive sweating, Denies excessive thirst, Denies high blood sugars, Denies palpitations Hematologic/Lymphatic: Denies easy bruising, Denies lymphadenopathy Physical exam - Constitutional General appearance: uncooperative, drowsy wakes up intermittently to answer question and drifts back to sleep, obese - EENT Eyes: anicteric sclerae, PERRLA, normal appearance conjunctival injection ENT: hearing grossly normal - Neck Neck: no lymphadenopathy, normal ROM, no other, no rigidity, no stridor, no thyromegaly - Respiratory Respiratory: Decreased air entry with bibasilar Crackles improved wheezing - Cardiovascular Rhythm: Irregularly irregular tachycardic Heart sounds: normal: S1, S2 Abnormal Heart Sounds: no systolic murmur, no diastolic murmur, no rub, no S3 Gallop, no S4 Gallop, no click, no other - Gastrointestinal General gastrointestinal: normal bowel sounds, soft nontender but distended - Integumentary Integumentary: There is full extremities appear flushed with 1+ pitting edema, peripheral pulses 2+ with less than 2 second capillary refill, purplish discoloration of toes - Neurologic alert oriented 3 be assessed as patient is noncooperative, does move all extremities gait could not - Musculoskeletal Musculoskeletal: Gait could not be assessed strength equal bilaterally - Psychiatric PsychiatriC Alert oriented 3 Assessment and plan #1 acute metabolic encephalopathy secondary to alcohol intoxication and hyponatremia and elevated ammonia levels patient received 1-1/2 L of IV fluids. Seizure precautions ordered. Fall precautions #2 acute alcohol intoxication with alcohol dependence with history of alcohol withdrawal including DTs alcohol withdrawal protocol initiated. Vitamin supplemented. Alcohol level high #3 acute suicidal thoughts. Placed on suicidal precautions. Psychiatry consulted #4 thrombocytopenia secondary to alcohol abuse and liver dysfunction continue to monitor hold anticoagulants #hyperosmolar hyponatremia secondary to alcohol nephrology consulted. Repeat labs pending urine sodium less than 20 #6 acute hypoxic respiratory failure with evidence of aspiration of recent chest x-ray evidence of volume overload on chest x-ray Lasix IV 40 twice a day initiated 1+ pitting edema also noted on the lower extremities.. Patient received 1-1/2 L of IV fluids in the ER and discontinue IV fluids at this moment Continuing diuretics. I&O monitoring daily weights. Zosyn initiated #7 acute COPD exacerbation the drainage is 60 IV every 6 DuoNeb's as needed for shortness of breath. Sputum culture ordered. Pulmonary consult placed #8 microscopic bleed per rectum positive fecal occult hemoglobin stable continue monitor CBC may be related to gastritis secondary to alcohol abuse will start patient on Protonix 40 once daily #9 polysubstance abuse urine drug screen positive for meth and THC. Continue to monitor vitals. EKG negative for any ST or T-wave changes #10 acute kidney injury secondary to AtN. hold iv fluids due to volume overload . Repeat CMP #11 acute A. fib with RVR. Cardizem initiated at 180 mg by mouth daily. Patient is fecal occult is positive we'll hold Eliquis for now. #10 code status full code #11 DVT prophylaxis hold anticoagulation due to thrombocytopenia #12 disposition patient need 1-2 inpatient days for stabilization with possible placement at [facility] - Vital Signs Vital signs: Vital Signs Temp 97.8 F 06/27/21 03:28 Pulse 81 06/27/21 16:00 Resp 16 06/27/21 16:00 BP 113/57 06/27/21 16:00 Pulse Ox 84 L 06/27/21 16:00 Intake & Output 06/26/21 06/27/21 06/27/21 18:59 06:59 18:59 Intake Total 240 250 Output Total 1700 Balance 240 -1450 Weight 110.677 kg 110.677 kg Intake: Intake, IV Titration 100 Amount Piperacillin-Tazobactam 3 100 .375 gm In Sodium Chloride 0.9% 100 ml @ 25 mls/hr IVPB Q8HR [facility] Rx# :[id number] Oral 240 150 Output: Urine 1700 Other: Voiding Method Indwelling Catheter Indwelling Catheter Indwelling Catheter # Bowel Movements 1 - Labs CBC & Chem 7: 06/27/21 15:20 06/26/21 14:31 Labs: Abnormal Lab Results - Last 24 Hours (Table) 06/26/21 06/26/21 06/26/21 Range/Units 14:31 14:31 20:45 RBC 3.76 L (4.30-5.90) m/uL Hgb 12.0 L (13.0-17.5) gm/dL Hct (39.0-53.0) % MCV 105.1 H (80.0-100.0) fL MCHC 30.4 L (31.0-37.0) g/dL Plt Count 76 L (150-450) k/uL Lymphocytes # 0.3 L (1.0-4.8) k/uL Procalcitonin 0.32 H (0.02-0.09) ng/mL Ur Random Sodium <20 L (40-220) mmol/L 06/27/21 Range/Units 15:20 RBC 3.28 L (4.30-5.90) m/uL Hgb 10.3 L (13.0-17.5) gm/dL Hct 33.8 L (39.0-53.0) % MCV 103.1 H (80.0-100.0) fL MCHC 30.4 L (31.0-37.0) g/dL Plt Count 124 L D (150-450) k/uL Lymphocytes # 0.3 L (1.0-4.8) k/uL Procalcitonin (0.02-0.09) ng/mL Ur Random Sodium (40-220) mmol/L
[2021-06-27 23:21] LABS: Albumin 3.6 g/dL (3.5-5.0); Total Bilirubin 1.4 mg/dL (0.2-1.3); Total Protein 6.4 g/dL (6.3-8.2); Uric Acid 7.8 mg/dL (3.5-8.5)
[2021-06-28] MEDS: methylPREDNISolone SOD SUCCI 125 MG/2 ML VIAL IV SCH ×5 (00:32→23:45)
[2021-06-28] MEDS: PIPERACILLIN-TAZOBACTAM 3.375 GM in SODIUM CHLORIDE 0.9% 100 ML IVPB SCH ×4 (00:32→23:46)
[2021-06-28] MEDS: LORazepam 2 MG/ML INJ IV PRN ×5 (01:13→23:45)
[2021-06-28] MEDS: PANTOPRAZOLE 40 MG TABLET PO SCH (05:59)
[2021-06-28 06:31] LABS: ABG Base Excess 2.5 mmol/L; ABG HCO3 30 mmol/L (21-25); ABG PCO2 65 mmHg (35-45); ABG PH 7.26 (7.35-7.45); ABG PO2 262 mmHg (83-108); ABG TCO2 31 mmol/L (19-24); Allen Test Performed? Yes
[2021-06-28 08:40] LABS: Calcium 9.3 mg/dL (8.4-10.2)
[2021-06-28] MEDS: NICOTINE 21MG/24HR PATCH TRANSDERM SCH (08:44)
--- NOTE | 2021-06-28 08:45 | XR ---
EXAMINATION TYPE: XR chest 1V portable DATE OF EXAM: 06/28/2021 COMPARISON: Chest x-ray 06/27/2021 HISTORY: Congestive heart failure TECHNIQUE: Single frontal view of the chest is obtained. FINDINGS: Basilar density is again noted on the right, heart remains enlarged. Suspect improved aera tion at the left lung base. No evident pneumothorax. Aorta is dense. Old left-sided rib fracture is h ealed. IMPRESSION: Correlate for right lower lobe pneumonia or atelectasis, difficult to exclude effusion
[2021-06-28] MEDS: LACTULOSE 20 GM/30 ML CUP PO SCH ×2 (08:46→20:41)
[2021-06-28] MEDS: DILTIAZEM CD 180 MG CAP.ER.24H PO SCH (08:46)
[2021-06-28] MEDS ORDERED: FUROSEMIDE 10 MG/ML 4 ML VIAL IV SCH (09:00)
[2021-06-28 09:28] LABS: Potassium 7.9 mmol/L (3.5-5.1)
[2021-06-28 10:54] LABS: Albumin 3.4 g/dL (3.5-5.0); Potassium 5.5 mmol/L (3.5-5.1); Total Protein 6.1 g/dL (6.3-8.2)
[2021-06-28 12:15] LABS: Glucose,Whole Blood 194 mg/dL (75-99)
[2021-06-28] MEDS: INSULIN ASPART (NovoLOG) 100 UNIT/ML VIAL SQ SCH ×3 (12:22→20:42)
--- NOTE | 2021-06-28 12:28 | P.PN ---
Subjective Progress Note Date: 06/28/21 This is a 61-year-old male patient with a history of atrial fibrillation, hypertension, depression, chronic obstructive pulmonary disease with chronic and ongoing tobacco dependence, D we have a alcohol use, marijuana use. He was brought into the emergency room yesterday after his roommate found him unres ponsive. In the emergency room he was more awake he denied even wanted to be at the hospital. He denied any suicidal/homicidal ideations. He was having issues with shortness of breath. No chest pain. No abdominal pain. No nausea or vomiting. Computed tomography scan of the brain revealed no acute intracranial hemorrhage or midline shift. There is mild diffuse age-related cerebral atrophy and moderate nonspecific white matter changes. Chest x-ray revealed evidence of cardiomegaly with tiny bilateral pleural effusions and mild interstitial edema suspected CHF. EKG revealed atrial fibrillation with a right bundle branch block and white count 4.5. Hemoglobin 12.0. Platelet count 76,000. Sodium 120. Potassium 5.0. BUN 41. Creatinine 1.88. Troponins negative 2. ProBNP 2300. Serum osmolality 332. Urine osmolality 382. Urine random sodium less than 20. Stool for occult blood positive. Urine drug screen positive for methamphetamines and marijuana. The patient is seen today in consultation on the selective care unit. He is currently resting fairly comfortably in bed. He is confused at times. Trying to get out of bed. radiology specialist is at the bedside. He is maintaining O2 saturations at 90% on 3 L/m per nasal cannula. He's been afebrile. Hemodynamically stable. Today's chest x-ray reveals a right lower lobe opacity with the left lower lobe opacity developing infectious process. Stable cardiomegaly and mild pulmonary vascular congestion. Evidence of COPD. He's been initiated on IV Solu-Medrol, bronchodilators, IV diuretics. NicoDerm patch in place. He is in the CIWA protocol. On 06/28/2021 patient seen in follow-up on selective care unit, he is currently lethargic, he has just received some IV Ativan for alcohol withdrawal symptoms. Patient has been receiving daily dose of IV Lasix 40 mg, he is on IV Solu- Medrol, Zosyn for possibility of aspiration related pneumonia. Today's chest x- ray showing right lower lobe pneumonia or atelectasis, and we'll effusion was difficult to exclude. He is currently on BiPAP support with pressures of 14 and 6 and 40% and his pulse ox is 97%. Lung sounds are diminished bilaterally, with expiratory wheezing. Overall seems to be in no acute distress, he is arousable to verbal and tactile stimulation. Labs have been reviewed, patient had a set of blood gases done earlier showing pO2 of 262, pCO2 of 65 and pH of 7.26 this was done on FiO2 of 100% and FiO2 has since been dropped down to 40%, serum so dium is 122, potassium is 5.5, chloride is 88, BUN of 72 and creatinine is 1.56. Objective - Vital Signs Vital signs: Vital Signs Temp 98.0 F 06/28/21 04:34 Pulse 63 06/28/21 08:00 Resp 16 06/28/21 08:00 BP 130/60 06/28/21 08:00 Pulse Ox 96 06/28/21 08:00 Intake & Output 06/27/21 06/28/21 06/28/21 18:59 06:59 18:59 Intake Total 250 0 0 Output Total 1700 1000 250 Balance -1450 -1000 -250 Intake: Intake, IV Titration 100 Amount Piperacillin-Tazobactam 3 100 .375 gm In Sodium Chloride 0.9% 100 ml @ 25 mls/hr IVPB Q8HR [facility] Rx# :[id number] Oral 150 0 0 Output: Urine 1700 1000 250 Other: Voiding Method Indwelling Catheter Indwelling Catheter Indwelling Catheter - Exam GENERAL EXAM: Lethargic, 61 yo male on Bipap support with pressures of 14/6 and fio2 of 40% comfortable in no apparent distress. HEAD: Normocephalic/atraumatic. EYES: Normal reaction of pupils, equal size. Conjunctiva pink, sclera white. NOSE: Clear with pink turbinates. THROAT: No erythema or exudates. NECK: No masses, no JVD, no thyroid enlargement, no adenopathy. CHEST: No chest wall deformity. Symmetrical expansion. LUNGS: Equal air entry with expiratory wheezes CVS: Regular rate and rhythm, normal S1 and S2, no gallops, no murmurs, no rubs ABDOMEN: Soft, nontender. No hepatosplenomegaly, normal bowel sounds, no guarding or rigidity. EXTREMITIES: No clubbing, no edema, no cyanosis, 2+ pulses and upper and lower extremities. MUSCULOSKELETAL: Muscle strength and tone normal. SPINE: No scoliosis or deformity SKIN: No rashes CENTRAL NERVOUS SYSTEM: Lethargic. No focal deficits, tone is normal in all 4 extremities. - Labs CBC & Chem 7: 06/27/21 15:20 06/28/21 10:15 Labs: Abnormal Lab Results - Last 24 Hours (Table) 06/27/21 06/27/21 06/28/21 Range/Units 15:20 22:20 06:28 RBC 3.28 L (4.30-5.90) m/uL Hgb 10.3 L (13.0-17.5) gm/dL Hct 33.8 L (39.0-53.0) % MCV 103.1 H (80.0-100.0) fL MCHC 30.4 L (31.0-37.0) g/dL Plt Count 124 L D (150-450) k/uL Lymphocytes # 0.3 L (1.0-4.8) k/uL ABG pH 7.26 L (7.35-7.45) ABG pCO2 65 H (35-45) mmHg ABG pO2 262 H (83-108) mmHg ABG HCO3 30 H (21-25) mmol/L ABG Total CO2 31 H (19-24) mmol/L ABG O2 Saturation 100.0 H (94-97) % Sodium 123 L (137-145) mmol/L Potassium (3.5-5.1) mmol/L Chloride 91 L (98-107) mmol/L BUN 79 H (9-20) mg/dL Creatinine 1.75 H (0.66-1.25) mg/dL Glucose 188 H (74-99) mg/dL POC Glucose (mg/dL) (75-99) mg/dL Osmolality (280-301) mosm/kg Total Bilirubin 1.4 H (0.2-1.3) mg/dL AST 73 H (17-59) U/L Total Protein (6.3-8.2) g/dL Albumin (3.5-5.0) g/dL 06/28/21 06/28/21 06/28/21 Range/Units 06:36 10:15 12:09 RBC (4.30-5.90) m/uL Hgb (13.0-17.5) gm/dL Hct (39.0-53.0) % MCV (80.0-100.0) fL MCHC (31.0-37.0) g/dL Plt Count (150-450) k/uL Lymphocytes # (1.0-4.8) k/uL ABG pH (7.35-7.45) ABG pCO2 (35-45) mmHg ABG pO2 (83-108) mmHg ABG HCO3 (21-25) mmol/L ABG Total CO2 (19-24) mmol/L ABG O2 Saturation (94-97) % Sodium 126 L 122 L (137-145) mmol/L Potassium 7.9 H* 5.5 H (3.5-5.1) mmol/L Chloride 94 L 88 L (98-107) mmol/L BUN 80 H 72 H (9-20) mg/dL Creatinine 1.49 H 1.56 H (0.66-1.25) mg/dL Glucose 165 H 168 H (74-99) mg/dL POC Glucose (mg/dL) 194 H (75-99) mg/dL Osmolality 305 H (280-301) mosm/kg Total Bilirubin (0.2-1.3) mg/dL AST (17-59) U/L Total Protein 6.1 L (6.3-8.2) g/dL Albumin 3.4 L (3.5-5.0) g/dL Assessment and Plan Plan: assessment: #1. Acute altered mental status, multifactorial, related to positive drug screen for methamphetamines, marijuana, alcohol, hyponatremia, and hypoxia and acute hypercapnia #2. Acute hypoxic and hypercapnic respiratory failure related to acute exacerbation of COPD, suspect aspiration pneumonia, and acute exacerbation of CHF with unspecified EF #3. Hyponatremia suspect related to daily alcohol use, and acute component is not excluded possibly related to acute exacerbation of CHF diastolic dysfunction #4. Atrial fibrillation, not on chronic anticoagulation #5. Hypertension #6. Depression #7. History of COPD #8. Chronic and ongoing history of tobacco dependence #9. Daily alcohol use, marijuana use #10. Hyperkalemia, improved #11. Thrombocytopenia secondary to daily alcohol use #12. Acute kidney injury secondary to ATN Plan: Continue Zosyn Continue breathing treatments Continue IV steroids Diuretics and IV fluids per nephrology recommendations Today's blood gas has been reviewed Patient was placed on BiPAP support the pressures of 14 and 6 and FiO2 of 40% Patient is receiving Ativan per CIWA protocol Will need to be with the Ativan and sedatives to avoid worsening hypercapnia and subsequent intubation We'll continue to follow his clinical course I performed a history & physical examination of the patient and discussed their management with my nurse practitioner, Esme Zambrano. I reviewed the nurse practitioner's note and agree with the documented findings and plan of care. Lung sounds are positive for diffuse wheezes throughout the lung vaughn. The findings and the impression was discussed with the patient. I attest to the documentation by the nurse practitioner. Time with Patient: Less than 30
--- NOTE | 2021-06-28 13:51 | P.PN ---
Subjective Progress Note Date: 06/28/21 Follow for hypernatremia and acute kidney injury. Has a Zaragoza catheter with good urine output. Denies any nausea vomiting diarrhea. Objective - Vital Signs Vital signs: Vital Signs Temp 98.0 F 06/28/21 04:34 Pulse 86 06/28/21 12:00 Resp 24 06/28/21 12:00 BP 114/64 06/28/21 12:00 Pulse Ox 97 06/28/21 12:00 Intake & Output 06/27/21 06/28/21 06/28/21 18:59 06:59 18:59 Intake Total 250 0 0 Output Total 1700 1000 250 Balance -1450 -1000 -250 Intake: Intake, IV Titration 100 Amount Piperacillin-Tazobactam 3 100 .375 gm In Sodium Chloride 0.9% 100 ml @ 25 mls/hr IVPB Q8HR [facility] Rx# :[id number] Oral 150 0 0 Output: Urine 1700 1000 250 Other: Voiding Method Indwelling Catheter Indwelling Catheter Indwelling Catheter - Exam No acute distress Lying comfortable S1-S2 heard Diminished breath sounds Edema - Labs CBC & Chem 7: 06/27/21 15:20 06/28/21 10:15 Labs: Abnormal Lab Results - Last 24 Hours (Table) 06/27/21 06/27/21 06/28/21 Range/Units 15:20 22:20 06:28 RBC 3.28 L (4.30-5.90) m/uL Hgb 10.3 L (13.0-17.5) gm/dL Hct 33.8 L (39.0-53.0) % MCV 103.1 H (80.0-100.0) fL MCHC 30.4 L (31.0-37.0) g/dL Plt Count 124 L D (150-450) k/uL Lymphocytes # 0.3 L (1.0-4.8) k/uL ABG pH 7.26 L (7.35-7.45) ABG pCO2 65 H (35-45) mmHg ABG pO2 262 H (83-108) mmHg ABG HCO3 30 H (21-25) mmol/L ABG Total CO2 31 H (19-24) mmol/L ABG O2 Saturation 100.0 H (94-97) % Sodium 123 L (137-145) mmol/L Potassium (3.5-5.1) mmol/L Chloride 91 L (98-107) mmol/L BUN 79 H (9-20) mg/dL Creatinine 1.75 H (0.66-1.25) mg/dL Glucose 188 H (74-99) mg/dL POC Glucose (mg/dL) (75-99) mg/dL Osmolality (280-301) mosm/kg Total Bilirubin 1.4 H (0.2-1.3) mg/dL AST 73 H (17-59) U/L Total Protein (6.3-8.2) g/dL Albumin (3.5-5.0) g/dL 06/28/21 06/28/21 06/28/21 Range/Units 06:36 10:15 12:09 RBC (4.30-5.90) m/uL Hgb (13.0-17.5) gm/dL Hct (39.0-53.0) % MCV (80.0-100.0) fL MCHC (31.0-37.0) g/dL Plt Count (150-450) k/uL Lymphocytes # (1.0-4.8) k/uL ABG pH (7.35-7.45) ABG pCO2 (35-45) mmHg ABG pO2 (83-108) mmHg ABG HCO3 (21-25) mmol/L ABG Total CO2 (19-24) mmol/L ABG O2 Saturation (94-97) % Sodium 126 L 122 L (137-145) mmol/L Potassium 7.9 H* 5.5 H (3.5-5.1) mmol/L Chloride 94 L 88 L (98-107) mmol/L BUN 80 H 72 H (9-20) mg/dL Creatinine 1.49 H 1.56 H (0.66-1.25) mg/dL Glucose 165 H 168 H (74-99) mg/dL POC Glucose (mg/dL) 194 H (75-99) mg/dL Osmolality 305 H (280-301) mosm/kg Total Bilirubin (0.2-1.3) mg/dL AST (17-59) U/L Total Protein 6.1 L (6.3-8.2) g/dL Albumin 3.4 L (3.5-5.0) g/dL Assessment and Plan Assessment: #1 hyperosmolar hyponatremia secondary to alcohol. -With high alcohol levels toxic alcohol less likely. -Urine sodium less than 20. #2 acute kidney injury suspect that hemodynamic ATN with low blood pressures. -Baseline creatinine 1.0 MG per DL. Creatinine was 2.2 on admission. #3 volume overload with lower extremity edema #4 ETH abuse #5 suicidal ideation with history of depression Plan: #1 repeat labs sodium still low, #2 agree with Lasix continue 40 mg IV twice a day. #3 repeat labs again in the morning including serum and urine studies.. #4 avoid nephrotoxic agents.
[2021-06-28] MEDS: FUROSEMIDE 10 MG/ML 4 ML VIAL IV SCH ×2 (15:44→23:39)
--- NOTE | 2021-06-28 16:02 | P.PN ---
Subjective Progress Note Date: 06/28/21 61 year old male with history of hypertension, atrial fibrillation, atrial flutter, alcohol abuse, COPD who has been seen multiple times in the ER for alcohol intoxication and suicidal ideation in the past was brought in by EMS as his roommate found him unresponsive. Patient drinks daily half a gallon. Patient evaluated in the ER. He would wake up intermittently say a few words and go back to sleep. Patient appears trunk, sees he wants to and appears that he is seeing things in the room as he is pointing at lopes. Patient is unable to maintain eye contact as he drifts into sleep. She received breathing treatment on his way to the hospital and also endorses before he came to the hospital. He received another nebulizing treatment before I evaluated him. Patient continues to wheeze significantly on evaluation. He denies any cough or shortness of breath or chest pain. Patient was afebrile tachycardic at 106, respiratory rate of 15 blood pressure 107/78 oxygen saturation 89% on room air improved to 97% on 2 L. EKG was obtained showed A. fib with rapid response of response at 120 CT of the brain was negative for any acute abnormality does have acute mastoiditis. Chest x-ray suggestive of mild congestive heart failure. Labs are reviewed patient has a WBC of 4.2 hemoglobin 12.7 sodium 118 chloride 82 bicarb 22 BUN 37 creatinine is 0.03. Ammonia level is a 25 alcohol level 218Patient is alcohol intoxication with suicidal ideation. Sitter at bedside ordered. We will discontinue IV fluids as patient appears volume overloaded. Solu-Medrol was initiated at 60 IV every 6 with DuoNeb's with pulmonary consult. Sodium levels with the acetaminophen urine osmolality were ordered. Nephrology consulted for management of sodium. 06/27 patient evaluated bedside is alert and answer questions appropriately. Sitter at bedside. Patient is currently 84% on 3 L of oxygen. Repeat chest x- ray suggestive of right lower lid and a troponin airspace opacity along with le ft lower airspace opacity with developing infectious process with COPD changes 06/28 patient evaluated at bedside lying comfortably in bed. Patient denies any chest pain or shortness of breath. Vitals are stable patient continues from and hyponatremia with a repeat sodium 122 potassium 5.5 chloride 88 BUN 72 creatinine 1.56. Serum osmolarity continues to remain high 305 continue Lasix 40 IV twice a day. Solu-Medrol reduced to every 8 8 hours 60 mg. Nephrology recommendation appreciated ROS Constitutional: Denies chills, Denies fever, endorses lethargy Denies poor appetite, endorses weakness, Denies weight loss Eyes: denies decreased vision, denies diplopia, denies discharge, denies pain Ears: deny: decreased hearing Ears, nose, mouth and throat: Denies dental pain, Denies headache, Denies nasal discharge, Denies nose pain Cardiovascular: Denies chest pain, Denies decreased exercise tolerance, Denies edema, Denies high blood pressure, Denies irregular heart beat, Denies palpitati ons, Denies paroxysmal nocturnal dyspnea, Denies rapid heart beat, Denies shortness of breath Respiratory: Endorses endorsesnies dyspnea, Denies home oxygen, Denies wheezing Gastrointestinal: Denies abdominal pain, Denies change in bowel habits, Denies coffee ground emesis, Denies early satiety, Denies excessive gas, Denies heartburn, Denies hematemesis, Denies hematochezia, Denies loss of appetite, Denies nausea, Denies vomiting Genitourinary: Denies dysuria, Denies flank pain, Denies kidney stones, Denies menorrhagia, Denies urgency, Denies urinary frequency Musculoskeletal: Denies gait dysfunction, Denies limitation of motion, Denies morning stiffness, Denies muscle cramps Integumentary: Denies rash, Denies wounds, Denies brittle nails, Denies change in hair/nails, Denies darkening of skin Neurological: Denies balance difficulties, Denies change in speech, Denies double vision, Denies gait dysfunction, Denies loss of vision, Denies motor disturbance, Denies numbness, Denies paralysis, Denies paresthesias, Denies seizures Psychiatric: Denies anxiety, Denies depression Endocrine: Denies excessive sweating, Denies excessive thirst, Denies high blood sugars, Denies palpitations Hematologic/Lymphatic: Denies easy bruising, Denies lymphadenopathy Physical exam - Constitutional General appearance: uncooperative, drowsy wakes up intermittently to answer question and drifts back to sleep, obese - EENT Eyes: anicteric sclerae, PERRLA, normal appearance conjunctival injection ENT: hearing grossly normal - Neck Neck: no lymphadenopathy, normal ROM, no other, no rigidity, no stridor, no thyromegaly - Respiratory Respiratory: Decreased air entry with bibasilar Crackles improved wheezing - Cardiovascular Rhythm: Irregularly irregular tachycardic Heart sounds: normal: S1, S2 Abnormal Heart Sounds: no systolic murmur, no diastolic murmur, no rub, no S3 Gallop, no S4 Gallop, no click, no other - Gastrointestinal General gastrointestinal: normal bowel sounds, soft nontender but distended - Integumentary Integumentary: There is full extremities appear flushed with 1+ pitting edema, peripheral pulses 2+ with less than 2 second capillary refill, purplish discoloration of toes - Neurologic alert oriented 3 be assessed as patient is noncooperative, does move all extremities gait could not - Musculoskeletal Musculoskeletal: Gait could not be assessed strength equal bilaterally - Psychiatric PsychiatriC Alert oriented 3 Assessment and plan #1 acute metabolic encephalopathy secondary to alcohol intoxication and hyponatremia and elevated ammonia levels patient received 1-1/2 L of IV fluids. Seizure precautions ordered. Fall precautions #2 acute alcohol intoxication with alcohol dependence with history of alcohol withdrawal including DTs alcohol withdrawal protocol initiated. Vitamin supplemented. Alcohol level high #3 acute suicidal thoughts. Placed on suicidal precautions. Psychiatry consulted #4 thrombocytopenia secondary to alcohol abuse and liver dysfunction continue to monitor hold anticoagulants #hyperosmolar hyponatremia secondary to alcohol nephrology consulted. Repeat labs pending urine sodium less than 20 secondary to alcohol intake #6 acute hypoxic respiratory failure with evidence of aspiration of recent chest x-ray evidence of volume overload on chest x-ray Lasix IV 40 twice a day initiated 1+ pitting edema also noted on the lower extremities.. Patient received 1-1/2 L of IV fluids in the ER and discontinue IV fluids at this moment Continuing diuretics. I&O monitoring daily weights. Zosyn initiated #7 acute COPD exacerbation the drainage is 60 IV every 6 DuoNeb's as needed for shortness of breath. Sputum culture ordered. Pulmonary consult placed #8 microscopic bleed per rectum positive fecal occult hemoglobin stable continue monitor CBC may be related to gastritis secondary to alcohol abuse will start patient on Protonix 40 once daily #9 polysubstance abuse urine drug screen positive for meth and THC. Continue to monitor vitals. EKG negative for any ST or T-wave changes #10 acute kidney injury secondary to AtN. hold iv fluids due to volume overload . Repeat CMP #11 acute A. fib with RVR. Cardizem initiated at 180 mg by mouth daily. Patient is fecal occult is positive we'll hold Eliquis for now. #10 code status full code #11 DVT prophylaxis hold anticoagulation due to thrombocytopenia #12 disposition patient need 1-2 inpatient days for stabilization with possible placement at [facility] Objective - Vital Signs Vital signs: Vital Signs Temp 98.0 F 06/28/21 04:34 Pulse 86 06/28/21 12:00 Resp 24 06/28/21 12:00 BP 114/64 06/28/21 12:00 Pulse Ox 97 06/28/21 12:00 Intake & Output 06/27/21 06/28/21 06/28/21 18:59 06:59 18:59 Intake Total 250 0 0 Output Total 1700 1000 1950 Balance -1450 -1000 -1950 Intake: Intake, IV Titration 100 Amount Piperacillin-Tazobactam 3 100 .375 gm In Sodium Chloride 0.9% 100 ml @ 25 mls/hr IVPB Q8HR [facility] Rx# :[id number] Oral 150 0 0 Output: Urine 1700 1000 1950 Other: Voiding Method Indwelling Catheter Indwelling Catheter Indwelling Catheter - Labs CBC & Chem 7: 06/27/21 15:20 06/28/21 10:15 Labs: Abnormal Lab Results - Last 24 Hours (Table) 06/27/21 06/27/21 06/28/21 Range/Units 15:20 22:20 06:28 RBC 3.28 L (4.30-5.90) m/uL Hgb 10.3 L (13.0-17.5) gm/dL Hct 33.8 L (39.0-53.0) % MCV 103.1 H (80.0-100.0) fL MCHC 30.4 L (31.0-37.0) g/dL Plt Count 124 L D (150-450) k/uL Lymphocytes # 0.3 L (1.0-4.8) k/uL ABG pH 7.26 L (7.35-7.45) ABG pCO2 65 H (35-45) mmHg ABG pO2 262 H (83-108) mmHg ABG HCO3 30 H (21-25) mmol/L ABG Total CO2 31 H (19-24) mmol/L ABG O2 Saturation 100.0 H (94-97) % Sodium 123 L (137-145) mmol/L Potassium (3.5-5.1) mmol/L Chloride 91 L (98-107) mmol/L BUN 79 H (9-20) mg/dL Creatinine 1.75 H (0.66-1.25) mg/dL Glucose 188 H (74-99) mg/dL POC Glucose (mg/dL) (75-99) mg/dL Osmolality (280-301) mosm/kg Total Bilirubin 1.4 H (0.2-1.3) mg/dL AST 73 H (17-59) U/L Total Protein (6.3-8.2) g/dL Albumin (3.5-5.0) g/dL 06/28/21 06/28/21 06/28/21 Range/Units 06:36 10:15 12:09 RBC (4.30-5.90) m/uL Hgb (13.0-17.5) gm/dL Hct (39.0-53.0) % MCV (80.0-100.0) fL MCHC (31.0-37.0) g/dL Plt Count (150-450) k/uL Lymphocytes # (1.0-4.8) k/uL ABG pH (7.35-7.45) ABG pCO2 (35-45) mmHg ABG pO2 (83-108) mmHg ABG HCO3 (21-25) mmol/L ABG Total CO2 (19-24) mmol/L ABG O2 Saturation (94-97) % Sodium 126 L 122 L (137-145) mmol/L Potassium 7.9 H* 5.5 H (3.5-5.1) mmol/L Chloride 94 L 88 L (98-107) mmol/L BUN 80 H 72 H (9-20) mg/dL Creatinine 1.49 H 1.56 H (0.66-1.25) mg/dL Glucose 165 H 168 H (74-99) mg/dL POC Glucose (mg/dL) 194 H (75-99) mg/dL Osmolality 305 H (280-301) mosm/kg Total Bilirubin (0.2-1.3) mg/dL AST (17-59) U/L Total Protein 6.1 L (6.3-8.2) g/dL Albumin 3.4 L (3.5-5.0) g/dL
[2021-06-28] MEDS: IPRATROPIUM-ALBUTEROL 3 ML NEB INHALATION SCH ×2 (16:05→20:41)
[2021-06-28 16:54] LABS: Glucose,Whole Blood 133 mg/dL (75-99)
[2021-06-28 20:54] LABS: Glucose,Whole Blood 164 mg/dL (75-99)
--- NOTE | 2021-06-28 21:59 | CONS ---
CONSULTATION DATE OF SERVICE: 06/28/2021 PURPOSE FOR CONSULTATION: Evaluate for depression with suicidal ideation in the face of alcohol intoxication. HISTORY PRESENTING ILLNESS: The patient is a 61-year-old male. He has long-term issues with alcohol use problems along with pulmonary and cardiac issues. He presented to the ED with acute alcohol intoxication. He was found by his roommate to be unresponsive. He drinks one half gallon of alcohol daily. On admission he was making statements that he wanted to . He said that he was seeing things in the room and was pointing at the lopes. His alcohol level on admission was 218. He was having respiratory and cardiac complications. He is assessed as having acute metabolic encephalopathy secondary to alcohol intact intoxication, hyponatremia, elevated ammonia levels. He was further assessed as having alcohol withdrawal with signs of delirium tremens. The patient was not able to provide any history. The only psychiatric information available is that he had a psychiatric admission 04/01/2019. I refer the reader to Dr. Ramirez's admission notes and other notes from that hospitalization. That hospitalization was precipitated by a suicide attempt where the patient consumed a bottle of mouthwash. He was noted to be acutely hopeless. He had significant alcohol use issues identified at that time. That was his first psychiatric hospitalization. He was noted to have an extensive drinking history over several years and one past brief stay at [facility] around 1999. On 04/06/2019, he was discharged with a referral to [facility]. He was on clonidine 0.1 mg twice a day and Lexapro 10 mg a day. There is no information available since that time and no record of his current medications, including any current psychotropic medication. According to nursing staff, the patient has been quite restless and distressed. He has been receiving regular doses of Ativan to manage detox. Vital signs have been stable, with vital signs at 12 noon including BP 114/64, pulse 86 and regular, respirations 24, oxygen saturation 97%. Nursing indicates that the patient was afebrile. As per the progress note of Dr. Melgar on 06/27, the patient was noted to be alert and oriented x3. He has been placed on suicide precautions. In Dr. Melgar's note of 06/28, he also notes the patient was alert and oriented x3. MENTAL STATUS EXAM: The patient was lying in bed. Nursing indicated that he had just received Ativan. He was quite restless. He was not able to communicate very clearly. He did make some brief statements, though it was difficult to follow what he was saying, as his were quite limited and disjointed. The only thing I could clearly make out was his complaint of having difficulty breathing. For a number of questions he would just have a somewhat staring gaze, though at other times he looked off in the distance and did not seem to pay any attention to my being there. He appeared anxious and moderately distressed. He was not able to respond in any way to questions of orientation. ASSESSMENT: This 61-year-old male is diagnosed with alcohol dependence, acute alcohol detoxification and likely delirium tremens. He continues with assertive medical management for detox. I would look for at least some cognitive clearing so as to expand the psychiatric assessment. I will continue to follow. KEIKO / LM: [id number] /
[2021-06-29] MEDS: LORazepam 2 MG/ML INJ IV PRN (02:47)
[2021-06-29 05:10] LABS: Appearance,Urine Clear (Clear); Bilirubin,Urine Negative (Negative); Blood,Urine Negative (Negative); Color,Urine Light Yellow; Glucose,Urine (UA) Negative (Negative); Ketones,Urine Negative (Negative); Leukocyte Esterase,Urine Negative (Negative); Nitrite,Urine Negative (Negative); Protein,Urine Negative (Negative); Specific Gravity,Urine 1.009 (1.001-1.035); Urobilinogen,Urine <2.0 mg/dL (<2.0)
[2021-06-29] MEDS: INSULIN ASPART (NovoLOG) 100 UNIT/ML VIAL SQ SCH ×4 (05:37→20:59)
[2021-06-29] MEDS: methylPREDNISolone SOD SUCCI 125 MG/2 ML VIAL IV SCH ×2 (06:03→12:18)
[2021-06-29] MEDS: PANTOPRAZOLE 40 MG TABLET PO SCH (06:03)
[2021-06-29 06:13] LABS: Glucose,Whole Blood 148 mg/dL (75-99)
--- NOTE | 2021-06-29 06:52 | XR ---
EXAMINATION TYPE: XR chest 1V portable DATE OF EXAM: 06/29/2021 CLINICAL HISTORY: Difficulty breathing and CHF progress study. TECHNIQUE: Single AP portable upright view of the chest is obtained. COMPARISON: Chest x-ray from one day earlier and older studies. FINDINGS: Bibasilar increased opacities redemonstrated. Subtle right-sided volume loss again seen. U pper lungs remain clear without pneumothorax. Mild underlying cardiomegaly redemonstrated. Osseous st ructures are demineralized. Old fracture deformity posterior lateral left fifth rib redemonstrated. IMPRESSION: Cardiomegaly with Right greater than left bilateral lower lung acute infiltrates and/or a telectasis with right-sided volume loss remain present. No significant change from one day earlier.
[2021-06-29 07:12] LABS: Uric Acid 6.5 mg/dL (3.5-8.5)
[2021-06-29] MEDS: IPRATROPIUM-ALBUTEROL 3 ML NEB INHALATION SCH ×4 (08:40→20:22)
[2021-06-29] MEDS: NICOTINE 21MG/24HR PATCH TRANSDERM SCH (08:55)
[2021-06-29] MEDS: DILTIAZEM CD 180 MG CAP.ER.24H PO SCH (08:55)
[2021-06-29] MEDS: LACTULOSE 20 GM/30 ML CUP PO SCH ×2 (08:56→20:59)
[2021-06-29] MEDS: PIPERACILLIN-TAZOBACTAM 3.375 GM in SODIUM CHLORIDE 0.9% 100 ML IVPB SCH ×3 (08:56→23:41)
[2021-06-29] MEDS: FUROSEMIDE 10 MG/ML 4 ML VIAL IV SCH ×2 (08:56→20:59)
[2021-06-29 09:48] LABS: Potassium,Urine Random 33.3 mmol/L (25.0-125.0)
--- NOTE | 2021-06-29 10:56 | P.PN ---
Subjective Principal diagnosis: Patient is seen for follow-up for acute kidney injury and hyponatremia. He has had good urine output. He has a Zaragoza catheter. Renal function has improved with creatinine down to 1.3 mg/dL. Sodium has improved as well it is up to 128. Currently patient is being diuresed. He is maintained on IV Lasix. 40 mg IV every 12 hours. Objective - Vital Signs Vital signs: Vital Signs Temp 98.0 F 06/29/21 04:00 Pulse 88 06/29/21 08:50 Resp 18 06/29/21 04:00 BP 122/62 06/29/21 04:00 Pulse Ox 95 06/29/21 05:29 Intake & Output 06/28/21 06/29/21 06/29/21 18:59 06:59 18:59 Intake Total 0 Output Total 1949 3400 Balance -1949 -3400 Intake: Oral 0 Output: Urine 19490 Other: Voiding Method Indwelling Catheter Indwelling Catheter - Exam On examination patient is comfortable awake is not in any acute distress. Mildly short of breath. Examination of the heart S1 and S2 examination lungs decreased breath sounds at the bases Examination lower extremities shows edema 2+ bilaterally [employer] exam shows patient is moving all 4 extremities - Labs CBC & Chem 7: 06/27/21 15:20 06/29/21 05:57 Labs: Abnormal Lab Results - Last 24 Hours (Table) 06/28/21 06/28/21 06/28/21 Range/Units 10:15 12:09 16:53 Sodium 122 L (137-145) mmol/L Potassium 5.5 H (3.5-5.1) mmol/L Chloride 88 L (98-107) mmol/L Carbon Dioxide (22-30) mmol/L BUN 72 H (9-20) mg/dL Creatinine 1.56 H (0.66-1.25) mg/dL Glucose 168 H (74-99) mg/dL POC Glucose (mg/dL) 194 H 133 H (75-99) mg/dL Total Protein 6.1 L (6.3-8.2) g/dL Albumin 3.4 L (3.5-5.0) g/dL Ur Random Sodium (40-220) mmol/L 06/28/21 06/29/21 06/29/21 Range/Units 20:21 04:58 05:12 Sodium (137-145) mmol/L Potassium (3.5-5.1) mmol/L Chloride (98-107) mmol/L Carbon Dioxide (22-30) mmol/L BUN (9-20) mg/dL Creatinine (0.66-1.25) mg/dL Glucose (74-99) mg/dL POC Glucose (mg/dL) 164 H 148 H (75-99) mg/dL Total Protein (6.3-8.2) g/dL Albumin (3.5-5.0) g/dL Ur Random Sodium 38 L (40-220) mmol/L 06/29/21 Range/Units 05:57 Sodium 128 L (137-145) mmol/L Potassium (3.5-5.1) mmol/L Chloride 85 L (98-107) mmol/L Carbon Dioxide 38 H (22-30) mmol/L BUN 63 H (9-20) mg/dL Creatinine 1.32 H (0.66-1.25) mg/dL Glucose 182 H (74-99) mg/dL POC Glucose (mg/dL) (75-99) mg/dL Total Protein (6.3-8.2) g/dL Albumin (3.5-5.0) g/dL Ur Random Sodium (40-220) mmol/L Assessment and Plan Assessment: 1. Hyponatremia, hyperosmolar associated with high EtOH levels as well as hypervolemic hyponatremia. Currently being diuresed. Sodium level is improving. 2. Acute kidney injury secondary to hemodynamic ATN with low blood pressures. Baseline creatinine around 1.0. 3. Volume overload currently maintained on IV Lasix. 4. It EtOH abuse 5. Suicidal ideation with history of depression Plan: 1. Continue with IV Lasix 2. Encourage increase oral intake particularly protein 3. Repeat labs in a.m.
[2021-06-29 11:59] LABS: Glucose,Whole Blood 191 mg/dL (75-99)
--- NOTE | 2021-06-29 13:10 | P.PN ---
Subjective Progress Note Date: 06/29/21 61 year old male with history of hypertension, atrial fibrillation, atrial flutter, alcohol abuse, COPD who has been seen multiple times in the ER for alcohol intoxication and suicidal ideation in the past was brought in by EMS as his roommate found him unresponsive. Patient drinks daily half a gallon. Patient evaluated in the ER. He would wake up intermittently say a few words and go back to sleep. Patient appears trunk, sees he wants to and appears that he is seeing things in the room as he is pointing at lopes. Patient is unable to maintain eye contact as he drifts into sleep. She received breathing treatment on his way to the hospital and also endorses before he came to the hospital. He received another nebulizing treatment before I evaluated him. Patient continues to wheeze significantly on evaluation. He denies any cough or shortness of breath or chest pain. Patient was afebrile tachycardic at 106, respiratory rate of 15 blood pressure 107/78 oxygen saturation 89% on room air improved to 97% on 2 L. EKG was obtained showed A. fib with rapid response of response at 120 CT of the brain was negative for any acute abnormality does have acute mastoiditis. Chest x-ray suggestive of mild congestive heart failure. Labs are reviewed patient has a WBC of 4.2 hemoglobin 12.7 sodium 118 chloride 82 bicarb 22 BUN 37 creatinine is 0.03. Ammonia level is a 25 alcohol level 218Patient is alcohol intoxication with suicidal ideation. Sitter at bedside ordered. We will discontinue IV fluids as patient appears volume overloaded. Solu-Medrol was initiated at 60 IV every 6 with DuoNeb's with pulmonary consult. Sodium levels with the acetaminophen urine osmolality were ordered. Nephrology consulted for management of sodium. 06/27 patient evaluated bedside is alert and answer questions appropriately. Sitter at bedside. Patient is currently 84% on 3 L of oxygen. Repeat chest x- ray suggestive of right lower lid and a troponin airspace opacity along with le ft lower airspace opacity with developing infectious process with COPD changes 06/28 patient evaluated at bedside lying comfortably in bed. Patient denies any chest pain or shortness of breath. Vitals are stable patient continues from and hyponatremia with a repeat sodium 122 potassium 5.5 chloride 88 BUN 72 creatinine 1.56. Serum osmolarity continues to remain high 305 continue Lasix 40 IV twice a day. Solu-Medrol reduced to every 8 8 hours 60 mg. Nephrology recommendation appreciated 06/29: Repeat chest x-ray reveals cardiomegaly with right greater than left bilateral lower lung acute infiltrates and/or atelectasis with right-sided volume loss remain present. No significant change from yesterday. Patient is followed closely by nephrology with plan to continue IV Lasix encourage oral protein intake and repeat labs tomorrow. Patient has seen by psychiatry with expectation of some cognitive clearing so they can expand the psychiatric assessment. Patient is still quite confused unable to answer questions and follow commands. He has been afebrile, heart rate 88, blood pressure 106/59, pulse ox 97% on 4 L nasal cannula. Sodium 128, potassium 4.0, chloride 85, CO2 38, BUN 63 creatinine 1.32. Blood sugars are running between 100 4891. TSH 1.250. Urinalysis negative for infection. Sodium 38. ROS Constitutional: Denies chills, Denies fever, endorses lethargy Denies poor appetite, endorses weakness, Denies weight loss Eyes: denies decreased vision, denies diplopia, denies discharge, denies pain Ears: deny: decreased hearing Ears, nose, mouth and throat: Denies dental pain, Denies headache, Denies nasal discharge, Denies nose pain Cardiovascular: Denies chest pain, Denies decreased exercise tolerance, Denies edema, Denies high blood pressure, Denies irregular heart beat, Denies palpitations, Denies paroxysmal nocturnal dyspnea, Denies rapid heart beat, Denies shortness of breath Respiratory: Endorses endorsesnies dyspnea, Denies home oxygen, Denies wheezing Gastrointestinal: Denies abdominal pain, Denies change in bowel habits, Denies coffee ground emesis, Denies early satiety, Denies excessive gas, Denies heartburn, Denies hematemesis, Denies hematochezia, Denies loss of appetite, Denies nausea, Denies vomiting Genitourinary: Denies dysuria, Denies flank pain, Denies kidney stones, Denies menorrhagia, Denies urgency, Denies urinary frequency Musculoskeletal: Denies gait dysfunction, Denies limitation of motion, Denies morning stiffness, Denies muscle cramps Integumentary: Denies rash, Denies wounds, Denies brittle nails, Denies change in hair/nails, Denies darkening of skin Neurological: Denies balance difficulties, Denies change in speech, Denies double vision, Denies gait dysfunction, Denies loss of vision, Denies motor disturbance, Denies numbness, Denies paralysis, Denies paresthesias, Denies seizures Psychiatric: Denies anxiety, Denies depression Endocrine: Denies excessive sweating, Denies excessive thirst, Denies high blood sugars, Denies palpitations Hematologic/Lymphatic: Denies easy bruising, Denies lymphadenopathy Physical exam - Constitutional General appearance: uncooperative, drowsy wakes up intermittently to answer qu estion and drifts back to sleep, obese - EENT Eyes: anicteric sclerae, PERRLA, normal appearance conjunctival injection ENT: hearing grossly normal - Neck Neck: no lymphadenopathy, normal ROM, no other, no rigidity, no stridor, no thyromegaly - Respiratory Respiratory: Decreased air entry with bibasilar Crackles improved wheezing - Cardiovascular Rhythm: Irregularly irregular tachycardic Heart sounds: normal: S1, S2 Abnormal Heart Sounds: no systolic murmur, no diastolic murmur, no rub, no S3 Gallop, no S4 Gallop, no click, no other - Gastrointestinal General gastrointestinal: normal bowel sounds, soft nontender but distended - Integumentary Integumentary: There is full extremities appear flushed with 1+ pitting edema, peripheral pulses 2+ with less than 2 second capillary refill, purplish discoloration of toes - Neurologic patient is noncooperative, does move all extremities gait could not be assessed - Musculoskeletal Musculoskeletal: Gait could not be assessed strength equal bilaterally - Psychiatric PsychiatriC Alert oriented 3 Assessment and plan #1 acute metabolic encephalopathy secondary to alcohol intoxication and hyponatremia and elevated ammonia levels patient received 1-1/2 L of IV fluids. Seizure precautions ordered. Fall precautions. #2 acute alcohol intoxication with alcohol dependence with history of alcohol withdrawal including DTs alcohol withdrawal protocol initiated. Vitamin supplemented. Alcohol level high #3 acute suicidal thoughts. Placed on suicidal precautions. Psychiatry consult appreciated and we will be reassessing when patient's cognition is improved. #4 thrombocytopenia secondary to alcohol abuse and liver dysfunction continue to monitor hold anticoagulants #hyperosmolar hyponatremia secondary to alcohol nephrology consult appreciated. Continue IV Lasix 40 mg every 12 hours. #6 acute hypoxic respiratory failure with evidence of aspiration of recent chest x-ray evidence of volume overload on chest x-ray Lasix IV 40 twice a day initiated 1+ pitting edema also noted on the lower extremities.. Patient received 1-1/2 L of IV fluids in the ER and discontinue IV fluids at this moment Continuing diuretics. I&O monitoring daily weights. Zosyn initiated #7 acute COPD exacerbation the drainage is 60 IV every 6 DuoNeb's as needed for shortness of breath. Sputum culture ordered. Pulmonary consult placed #8 microscopic bleed per rectum positive fecal occult hemoglobin stable continue monitor CBC may be related to gastritis secondary to alcohol abuse, Protonix 40 once daily #9 polysubstance abuse urine drug screen positive for meth and THC. Continue to monitor vitals. EKG negative for any ST or T-wave changes #10 acute kidney injury secondary to AtN. hold iv fluids due to volume overload . Repeat CMP #11 acute A. fib with RVR, chronic persistent. Continue Cardizem CD 180 mg daily. Hold eliquis. #10 code status full code #11 DVT prophylaxis hold anticoagulation due to thrombocytopenia DISCHARG PLAN TBD Impression and plan of care have been directed as dictated by the signing physician. Leticia Sweet nurse practitioner acting as scribe for signing physician. Objective - Vital Signs Vital signs: Vital Signs Temp 98.0 F 06/29/21 04:00 Pulse 88 06/29/21 08:50 Resp 18 06/29/21 04:00 BP 122/62 06/29/21 04:00 Pulse Ox 95 06/29/21 05:29 Intake & Output 06/28/21 06/29/21 06/29/21 18:59 06:59 18:59 Intake Total 0 Output Total 1949 3400 Balance -1949 -3399 Intake: Oral 0 Output: Urine 1949 3400 Other: Voiding Method Indwelling Catheter Indwelling Catheter - Labs CBC & Chem 7: 06/27/21 15:20 06/29/21 05:57 Labs: Abnormal Lab Results - Last 24 Hours (Table) 06/28/21 06/28/21 06/28/21 Range/Units 10:15 12:09 16:53 Sodium 122 L (137-145) mmol/L Potassium 5.5 H (3.5-5.1) mmol/L Chloride 88 L (98-107) mmol/L Carbon Dioxide (22-30) mmol/L BUN 72 H (9-20) mg/dL Creatinine 1.56 H (0.66-1.25) mg/dL Glucose 168 H (74-99) mg/dL POC Glucose (mg/dL) 194 H 133 H (75-99) mg/dL Total Protein 6.1 L (6.3-8.2) g/dL Albumin 3.4 L (3.5-5.0) g/dL Ur Random Sodium (40-220) mmol/L 06/28/21 06/29/21 06/29/21 Range/Units 20:21 04:58 05:12 Sodium (137-145) mmol/L Potassium (3.5-5.1) mmol/L Chloride (98-107) mmol/L Carbon Dioxide (22-30) mmol/L BUN (9-20) mg/dL Creatinine (0.66-1.25) mg/dL Glucose (74-99) mg/dL POC Glucose (mg/dL) 164 H 148 H (75-99) mg/dL Total Protein (6.3-8.2) g/dL Albumin (3.5-5.0) g/dL Ur Random Sodium 38 L (40-220) mmol/L 06/29/21 Range/Units 05:57 Sodium 128 L (137-145) mmol/L Potassium (3.5-5.1) mmol/L Chloride 85 L (98-107) mmol/L Carbon Dioxide 38 H (22-30) mmol/L BUN 63 H (9-20) mg/dL Creatinine 1.32 H (0.66-1.25) mg/dL Glucose 182 H (74-99) mg/dL POC Glucose (mg/dL) (75-99) mg/dL Total Protein (6.3-8.2) g/dL Albumin (3.5-5.0) g/dL Ur Random Sodium (40-220) mmol/L
[2021-06-29 16:48] LABS: Glucose,Whole Blood 190 mg/dL (75-99)
--- NOTE | 2021-06-29 17:14 | P.PN ---
Subjective Progress Note Date: 06/29/21 This is a 61-year-old male patient with a history of atrial fibrillation, hypertension, depression, chronic obstructive pulmonary disease with chronic and ongoing tobacco dependence, D we have a alcohol use, marijuana use. He was brought into the emergency room yesterday after his roommate found him unres ponsive. In the emergency room he was more awake he denied even wanted to be at the hospital. He denied any suicidal/homicidal ideations. He was having issues with shortness of breath. No chest pain. No abdominal pain. No nausea or vomiting. Computed tomography scan of the brain revealed no acute intracranial hemorrhage or midline shift. There is mild diffuse age-related cerebral atrophy and moderate nonspecific white matter changes. Chest x-ray revealed evidence of cardiomegaly with tiny bilateral pleural effusions and mild interstitial edema suspected CHF. EKG revealed atrial fibrillation with a right bundle branch block and white count 4.5. Hemoglobin 12.0. Platelet count 76,000. Sodium 120. Potassium 5.0. BUN 41. Creatinine 1.88. Troponins negative 2. ProBNP 2300. Serum osmolality 332. Urine osmolality 382. Urine random sodium less than 20. Stool for occult blood positive. Urine drug screen positive for methamphetamines and marijuana. The patient is seen today in consultation on the selective care unit. He is currently resting fairly comfortably in bed. He is confused at times. Trying to get out of bed. grapple crew leader is at the bedside. He is maintaining O2 saturations at 90% on 3 L/m per nasal cannula. He's been afebrile. Hemodynamically stable. Today's chest x-ray reveals a right lower lobe opacity with the left lower lobe opacity developing infectious process. Stable cardiomegaly and mild pulmonary vascular congestion. Evidence of COPD. He's been initiated on IV Solu-Medrol, bronchodilators, IV diuretics. NicoDerm patch in place. He is in the [facility] protocol. On 06/28/2021 patient seen in follow-up on selective care unit, he is currently lethargic, he has just received some IV Ativan for alcohol withdrawal symptoms. Patient has been receiving daily dose of IV Lasix 40 mg, he is on IV Solu- Medrol, Zosyn for possibility of aspiration related pneumonia. Today's chest x- ray showing right lower lobe pneumonia or atelectasis, and we'll effusion was difficult to exclude. He is currently on BiPAP support with pressures of 14 and 6 and 40% and his pulse ox is 97%. Lung sounds are diminished bilaterally, with expiratory wheezing. Overall seems to be in no acute distress, he is arousable to verbal and tactile stimulation. Labs have been reviewed, patient had a set of blood gases done earlier showing pO2 of 262, pCO2 of 65 and pH of 7.26 this was done on FiO2 of 100% and FiO2 has since been dropped down to 40%, serum so dium is 122, potassium is 5.5, chloride is 88, BUN of 72 and creatinine is 1.56. On 06/29/2021 patient seen in follow-up. Patient is currently on 4 L of oxygen the pulse ox of 97%, he sleepy, still confused, but not agitated, lung sounds are diminished, without rhonchi or wheezing, he is off BiPAP support, he is asking for water, he feels thirsty. Vitals is having stable overnight, afebrile, his chest x-ray shows cardiomegaly with right greater than left bilateral lower lung acute infiltrates and/or atelectasis with right-sided volume loss without significant change from one day earlier. His labs have been reviewed, sodium is 128, potassium is 4.0, chloride is 85, CO2 38, BUN is 63, creatinine is 1.32. Sodium is improved, patient has been receiving diuretics, and this is being managed by nephrology on the case, patient is currently on Lasix 40 mg every 12 hours. He remains on IV steroids with Solu-Medrol 60 mg every 6 hours, he is on Zosyn for possibility of aspiration related pneumonia. Objective - Vital Signs Vital signs: Vital Signs Temp 98.1 F 06/29/21 14:55 Pulse 91 06/29/21 14:55 Resp 16 06/29/21 14:55 BP 90/52 06/29/21 14:55 Pulse Ox 94 L 06/29/21 17:00 Intake & Output 06/28/21 06/29/21 06/29/21 18:59 06:59 18:59 Intake Total 0 480 Output Total 1950 3400 1800 Balance -1950 -3400 -1320 Intake: Oral 0 480 Output: Urine 1950 3400 1800 Other: Voiding Method Indwelling Catheter Indwelling Catheter Indwelling Catheter - Exam GENERAL EXAM: Lethargic, 61 yo male on 4 L of oxygen with pulse ox of 94-97%, patient is conscious, sleepy, but does not appear to be in any acute distress. Patient is thirsty, he is keeps asking for water HEAD: Normocephalic/atraumatic. EYES: Normal reaction of pupils, equal size. Conjunctiva pink, sclera white. NOSE: Clear with pink turbinates. THROAT: No erythema or exudates. NECK: No masses, no JVD, no thyroid enlargement, no adenopathy. CHEST: No chest wall deformity. Symmetrical expansion. LUNGS: Equal air entry with diminished breath sounds, no crackles, no rhonchi CVS: Regular rate and rhythm, normal S1 and S2, no gallops, no murmurs, no rubs ABDOMEN: Soft, nontender. No hepatosplenomegaly, normal bowel sounds, no guarding or rigidity. EXTREMITIES: No clubbing, no edema, no cyanosis, 2+ pulses and upper and lower extremities. MUSCULOSKELETAL: Muscle strength and tone normal. SPINE: No scoliosis or deformity SKIN: No rashes CENTRAL NERVOUS SYSTEM: Lethargic. No focal deficits, tone is normal in all 4 extremities. - Labs CBC & Chem 7: 06/27/21 15:20 06/29/21 05:57 Labs: Abnormal Lab Results - Last 24 Hours (Table) 06/28/21 06/29/21 06/29/21 Range/Units 20:21 04:58 05:12 Sodium (137-145) mmol/L Chloride (98-107) mmol/L Carbon Dioxide (22-30) mmol/L BUN (9-20) mg/dL Creatinine (0.66-1.25) mg/dL Glucose (74-99) mg/dL POC Glucose (mg/dL) 164 H 148 H (75-99) mg/dL Ur Random Sodium 38 L (40-220) mmol/L 06/29/21 06/29/21 06/29/21 Range/Units 05:57 11:58 16:46 Sodium 128 L (137-145) mmol/L Chloride 85 L (98-107) mmol/L Carbon Dioxide 38 H (22-30) mmol/L BUN 63 H (9-20) mg/dL Creatinine 1.32 H (0.66-1.25) mg/dL Glucose 182 H (74-99) mg/dL POC Glucose (mg/dL) 191 H 190 H (75-99) mg/dL Ur Random Sodium (40-220) mmol/L Assessment and Plan Plan: assessment: #1. Acute altered mental status, multifactorial, related to positive drug screen for methamphetamines, marijuana, alcohol, hyponatremia, and hypoxia and acute hypercapnia #2. Acute hypoxic and hypercapnic respiratory failure related to acute exacerbation of COPD, suspect aspiration pneumonia, and acute exacerbation of CHF with unspecified EF #3. Hyponatremia suspect related to daily alcohol use, and acute component is not excluded possibly related to acute exacerbation of CHF diastolic dysfunction #4. Atrial fibrillation, not on chronic anticoagulation #5. Hypertension #6. Depression #7. History of COPD #8. Chronic and ongoing history of tobacco dependence #9. Daily alcohol use, marijuana use #10. Hyperkalemia, improved #11. Thrombocytopenia secondary to daily alcohol use #12. Acute kidney injury secondary to ATN Plan: Patient is currently off BiPAP He is on 4 L of oxygen, does not appear to be in any acute distress Continue Zosyn, continue diuretics per nephrology Continue breathing treatments We can cut back to steroids to 40 mg every 8 hours Patient does not appear to be agitated, no diaphoresis, no signs of acute withdrawal noted He is actually a bit lethargic May use is Haldol for any agitation Continue utilizing BiPAP support at bedtime and as needed during the day in view of intermittent lethargy Follow up blood work in the morning including electrolytes and renal profile I performed a history & physical examination of the patient and discussed their management with my nurse practitioner, Esme Zambrano. I reviewed the nurse practitioner's note and agree with the documented findings and plan of care. Lung sounds are positive for diffuse wheezes throughout the lung vaughn. The findings and the impression was discussed with the patient. I attest to the documentation by the nurse practitioner. Time with Patient: Less than 30
[2021-06-29 20:09] LABS: Glucose,Whole Blood 216 mg/dL (75-99)
[2021-06-29] MEDS: ACETAMINOPHEN TAB 325 MG TAB PO PRN (20:59)
[2021-06-29] MEDS: methylPREDNISolone SOD SUCCI 40 MG/ML 1 ML VIAL IV SCH (23:41)
[2021-06-30 05:38] LABS: Glucose,Whole Blood 222 mg/dL (75-99)
[2021-06-30] MEDS: PANTOPRAZOLE 40 MG TABLET PO SCH (05:41)
[2021-06-30] MEDS: ACETAMINOPHEN TAB 325 MG TAB PO PRN ×3 (05:41→20:38)
[2021-06-30] MEDS: INSULIN ASPART (NovoLOG) 100 UNIT/ML VIAL SQ SCH ×4 (05:41→20:38)
[2021-06-30 07:52] LABS: Basophils % (A) 0 %; Eosinophils % (A) 1 %; HCT 31.1 % (39.0-53.0); HGB 9.7 gm/dL (13.0-17.5); Hypochromasia Moderate; Lymphocytes # (A) 0.2 k/uL (1.0-4.8); Lymphocytes % (A) 4 %; MCH 31.6 pg (25.0-35.0); MCV 101.8 fL (80.0-100.0); Macrocytosis Slight; Mean Platelet Volume 7.9; Monocytes # (A) 0.3 k/uL (0-1.0); Monocytes % (A) 6 %; Neutrophils # (A) 4.4 k/uL (1.3-7.7); Neutrophils % (A) 88 %; Platelet Count 129 k/uL (150-450); RBC 3.06 m/uL (4.30-5.90); RDW 15.4 % (11.5-15.5); WBC 4.9 k/uL (3.8-10.6)
[2021-06-30 08:10] LABS: African American GFR (CKD) >90 (>60 ml/min/1.73 sqM); Anion Gap 4 mmol/L; Blood Urea Nitrogen 60 mg/dL (9-20); Calcium 8.5 mg/dL (8.4-10.2); Carbon Dioxide 39 mmol/L (22-30); Chloride 89 mmol/L (98-107); Glucose 149 mg/dL (74-99); Non-African American GFR(CKD) 78 (>60 ml/min/1.73 sqM); Potassium 3.1 mmol/L (3.5-5.1); Sodium 132 mmol/L (137-145)
--- NOTE | 2021-06-30 08:20 | XR ---
EXAMINATION TYPE: XR chest 1V portable DATE OF EXAM: 06/30/2021 Comparison: 06/29/2021 Clinical History: 61-year-old male shortness of breath Findings: Heart upper limits of normal in size. Continued right basilar/retrocardiac opacity. Aeration has impr cheli at the left base. Impression: Aeration has improved at the left base. Continued extensive consolidation or atelectasis of the right lower lobe.
[2021-06-30] MEDS: PIPERACILLIN-TAZOBACTAM 3.375 GM in SODIUM CHLORIDE 0.9% 100 ML IVPB SCH ×3 (08:33→23:46)
[2021-06-30] MEDS: methylPREDNISolone SOD SUCCI 40 MG/ML 1 ML VIAL IV SCH ×3 (08:33→23:46)
[2021-06-30] MEDS: NICOTINE 21MG/24HR PATCH TRANSDERM SCH (08:33)
[2021-06-30] MEDS: DILTIAZEM CD 180 MG CAP.ER.24H PO SCH (08:33)
[2021-06-30] MEDS: LACTULOSE 20 GM/30 ML CUP PO SCH ×2 (08:33→20:37)
[2021-06-30] MEDS: FUROSEMIDE 10 MG/ML 4 ML VIAL IV SCH ×2 (08:33→20:38)
[2021-06-30] MEDS: IPRATROPIUM-ALBUTEROL 3 ML NEB INHALATION SCH ×4 (09:02→20:44)
[2021-06-30 11:59] LABS: Glucose,Whole Blood 172 mg/dL (75-99)
--- NOTE | 2021-06-30 13:16 | P.PN ---
Subjective Progress Note Date: 06/30/21 This is a 61-year-old male patient with a history of atrial fibrillation, hypertension, depression, chronic obstructive pulmonary disease with chronic and ongoing tobacco dependence, D we have a alcohol use, marijuana use. He was brought into the emergency room yesterday after his roommate found him unre sponsive. In the emergency room he was more awake he denied even wanted to be at the hospital. He denied any suicidal/homicidal ideations. He was having issues with shortness of breath. No chest pain. No abdominal pain. No nausea or vomiting. Computed tomography scan of the brain revealed no acute intracranial hemorrhage or midline shift. There is mild diffuse age-related cerebral atrophy and moderate nonspecific white matter changes. Chest x-ray revealed evidence of cardiomegaly with tiny bilateral pleural effusions and mild interstitial edema suspected CHF. EKG revealed atrial fibrillation with a right bundle branch block and white count 4.5. Hemoglobin 12.0. Platelet count 76, 000. Sodium 120. Potassium 5.0. BUN 41. Creatinine 1.88. Troponins negative 2. ProBNP 2300. Serum osmolality 332. Urine osmolality 382. Urine random sodium less than 20. Stool for occult blood positive. Urine drug screen positive for methamphetamines and marijuana. The patient is seen today in consultation on the selective care unit. He is currently resting fairly comfortably in bed. He is confused at times. Trying to get out of bed. tape duplicator is at the bedside. He is maintaining O2 saturations at 90% on 3 L/m per nasal cannula. He's been afebrile. Hemodynamically stable. Today's chest x- ray reveals a right lower lobe opacity with the left lower lobe opacity developi ng infectious process. Stable cardiomegaly and mild pulmonary vascular congestion. Evidence of COPD. He's been initiated on IV Solu-Medrol, bronchodilators, IV diuretics. NicoDerm patch in place. He is in the [facility] protocol. On 06/28/2021 patient seen in follow-up on selective care unit, he is currently lethargic, he has just received some IV Ativan for alcohol withdrawal symptoms. Patient has been receiving daily dose of IV Lasix 40 mg, he is on IV Solu- Medrol, Zosyn for possibility of aspiration related pneumonia. Today's chest x- ray showing right lower lobe pneumonia or atelectasis, and we'll effusion was difficult to exclude. He is currently on BiPAP support with pressures of 14 and 6 and 40% and his pulse ox is 97%. Lung sounds are diminished bilaterally, with expiratory wheezing. Overall seems to be in no acute distress, he is arousable to verbal and tactile stimulation. Labs have been reviewed, patient had a set of blood gases done earlier showing pO2 of 262, pCO2 of 65 and pH of 7.26 this was done on FiO2 of 100% and FiO2 has since been dropped down to 40%, serum s odium is 122, potassium is 5.5, chloride is 88, BUN of 72 and creatinine is 1.56. On 06/29/2021 patient seen in follow-up. Patient is currently on 4 L of oxygen the pulse ox of 97%, he sleepy, still confused, but not agitated, lung sounds are diminished, without rhonchi or wheezing, he is off BiPAP support, he is asking for water, he feels thirsty. Vitals is having stable overnight, afebrile, his chest x-ray shows cardiomegaly with right greater than left bilateral lower lung acute infiltrates and/or atelectasis with right-sided volume loss without significant change from one day earlier. His labs have been reviewed, sodium is 128, potassium is 4.0, chloride is 85, CO2 38, BUN is 63, creatinine is 1.32. Sodium is improved, patient has been receiving diuretics, and this is being managed by nephrology on the case, patient is currently on Lasix 40 mg every 12 hours. He remains on IV steroids with Solu-Medrol 60 mg every 6 hours, he is on Zosyn for possibility of aspiration related pneumonia. The patient is seen today 06/30/2021 in follow-up on the selective care unit. He is currently resting comfortably in bed. Awake and alert in no acute distress. He is maintaining O2 saturations in the 90s on 3 L high flow nasal cannula. He's been afebrile. Hemodynamically stable. Chest x-ray reveals improved aeration in the left lung base. Continued extensive consolidation or atelectasis at the right lower lobe. White count 4.9. Hemoglobin 9.7. Platelet count 129,000. Lymphocytes 0.2. Sodium 132. Potassium 3.1. Creatinine 1.03. Glucose 149. He is continued on DuoNeb inhalations, IV diuretics, IV Solu-Medrol, antibiotics in the form of Zosyn. NicoDerm patch in place. Continued in the [facility] protocol. Objective - Vital Signs Vital signs: Vital Signs Temp 97.6 F 06/30/21 08:39 Pulse 108 H 06/30/21 12:00 Resp 18 06/30/21 12:00 BP 148/63 06/30/21 12:00 Pulse Ox 92 L 06/30/21 12:00 Intake & Output 06/29/21 06/30/21 06/30/21 18:59 06:59 18:59 Intake Total 720 240 Output Total 1800 1950 1600 Balance -2126 -3431 -1600 Weight 107.1 kg Intake: Oral 720 240 Output: Urine 1800 1950 1600 Other: Voiding Method Indwelling Catheter Indwelling Catheter Indwelling Catheter - Exam GENERAL EXAM: Awake, alert 61 yo male on 3 L of oxygen with pulse ox of 92%, does not appear to be in any acute distress. HEAD: Normocephalic/atraumatic. EYES: Normal reaction of pupils, equal size. Conjunctiva pink, sclera white. NOSE: Clear with pink turbinates. THROAT: No erythema or exudates. NECK: No masses, no JVD, no thyroid enlargement, no adenopathy. CHEST: No chest wall deformity. Symmetrical expansion. LUNGS: Equal air entry with diminished breath sounds, no crackles, no rhonchi CVS: Regular rate and rhythm, normal S1 and S2, no gallops, no murmurs, no rubs ABDOMEN: Soft, nontender. No hepatosplenomegaly, normal bowel sounds, no guarding or rigidity. EXTREMITIES: No clubbing, no edema, no cyanosis, 2+ pulses and upper and lower extremities. MUSCULOSKELETAL: Muscle strength and tone normal. SPINE: No scoliosis or deformity SKIN: No rashes CENTRAL NERVOUS SYSTEM: Awake, cooperative. No focal deficits, tone is normal in all 4 extremities. - Labs CBC & Chem 7: 06/30/21 07:36 06/30/21 07:36 Labs: Abnormal Lab Results - Last 24 Hours (Table) 06/29/21 06/29/21 06/30/21 Range/Units 16:46 20:07 05:36 RBC (4.30-5.90) m/uL Hgb (13.0-17.5) gm/dL Hct (39.0-53.0) % MCV (80.0-100.0) fL Plt Count (150-450) k/uL Lymphocytes # (1.0-4.8) k/uL Sodium (137-145) mmol/L Potassium (3.5-5.1) mmol/L Chloride (98-107) mmol/L Carbon Dioxide (22-30) mmol/L BUN (9-20) mg/dL Glucose (74-99) mg/dL POC Glucose (mg/dL) 190 H 216 H 222 H (75-99) mg/dL 06/30/21 06/30/21 06/30/21 Range/Units 07:36 07:36 11:57 RBC 3.06 L (4.30-5.90) m/uL Hgb 9.7 L (13.0-17.5) gm/dL Hct 31.1 L (39.0-53.0) % MCV 101.8 H (80.0-100.0) fL Plt Count 129 L (150-450) k/uL Lymphocytes # 0.2 L (1.0-4.8) k/uL Sodium 132 L (137-145) mmol/L Potassium 3.1 L (3.5-5.1) mmol/L Chloride 89 L (98-107) mmol/L Carbon Dioxide 39 H (22-30) mmol/L BUN 60 H (9-20) mg/dL Glucose 149 H (74-99) mg/dL POC Glucose (mg/dL) 172 H (75-99) mg/dL Assessment and Plan Assessment: 1 Acute altered mental status of unclear etiology, urine drug screen positive for methamphetamines and marijuana, hyponatremia, hypoxemia. Improved. Awake and alert today. 2 Acute hypoxemic respiratory failure secondary to suspected congestive heart failure, COPD exacerbation, early infiltrates and possible apiration pneumonia here chest x-ray showing improvement in the left lung base. Continued consolidation in the right lower lobe. On 3 L nasal cannula now. 3 Hyponatremia suspect secondary to daily alcohol use in the improved, currently 132 4 Acute renal failure suspect secondary to dehydration, improved with a creatinine of 1.03 5 Thrombocytopenia secondary to daily alcohol use improved currently 129,000 6 Daily heavy alcohol use 7 Marijuana use 8 Chronic tobacco dependence 9 Stool for occult blood positive Plan: The patient was seen and evaluated More awake and alert, cooperative Chest x-ray and labs reviewed Continue IV Solu-Medrol, bronchodilators Continue IV diuretics Nicoderm patch in place Remains on the [facility] protocol Will most likely need subacute rehab post discharge I, the cosigning physician, performed a history & physical examination of the patient. Lungs sounds bibasilar crackles. Maintaining good O2 saturations in the 90s on 3 L/m per nasal cannula. I discussed the assessment and plan of care with my nurse practitioner, Tiffanie Marr. I attest to the above note as dictated by her.
[2021-06-30] MEDS ORDERED: POTASSIUM CHLORIDE ER 20 MEQ TAB.ER PO STA (14:42)
--- NOTE | 2021-06-30 14:42 | P.PN ---
Subjective Progress Note Date: 06/30/21 61 year old male with history of hypertension, atrial fibrillation, atrial flutter, alcohol abuse, COPD who has been seen multiple times in the ER for alcohol intoxication and suicidal ideation in the past was brought in by EMS as his roommate found him unresponsive. Patient drinks daily half a gallon. Patient evaluated in the ER. He would wake up intermittently say a few words and go back to sleep. Patient appears trunk, sees he wants to and appears that he is seeing things in the room as he is pointing at lopes. Patient is unable to maintain eye contact as he drifts into sleep. She received breathing treatment on his way to the hospital and also endorses before he came to the hospital. He received another nebulizing treatment before I evaluated him. Patient continues to wheeze significantly on evaluation. He denies any cough or shortness of breath or chest pain. Patient was afebrile tachycardic at 106, respiratory rate of 15 blood pressure 107/78 oxygen saturation 89% on room air improved to 97% on 2 L. EKG was obtained showed A. fib with rapid response of response at 120 CT of the brain was negative for any acute abnormality does have acute mastoiditis. Chest x-ray suggestive of mild congestive heart failure. Labs are reviewed patient has a WBC of 4.2 hemoglobin 12.7 sodium 118 chloride 82 bicarb 22 BUN 37 creatinine is 0.03. Ammonia level is a 25 alcohol level 218Patient is alcohol intoxication with suicidal ideation. Sitter at bedside ordered. We will discontinue IV fluids as patient appears volume overloaded. Solu-Medrol was initiated at 60 IV every 6 with DuoNeb's with pulmonary consult. Sodium levels with the acetaminophen urine osmolality were ordered. Nephrology consulted for management of sodium. 06/27 patient evaluated bedside is alert and answer questions appropriately. Sitter at bedside. Patient is currently 84% on 3 L of oxygen. Repeat chest x- ray suggestive of right lower lid and a troponin airspace opacity along with le ft lower airspace opacity with developing infectious process with COPD changes 06/28 patient evaluated at bedside lying comfortably in bed. Patient denies any chest pain or shortness of breath. Vitals are stable patient continues from and hyponatremia with a repeat sodium 122 potassium 5.5 chloride 88 BUN 72 creatinine 1.56. Serum osmolarity continues to remain high 305 continue Lasix 40 IV twice a day. Solu-Medrol reduced to every 8 8 hours 60 mg. Nephrology recommendation appreciated 06/29: Repeat chest x-ray reveals cardiomegaly with right greater than left bilateral lower lung acute infiltrates and/or atelectasis with right-sided volume loss remain present. No significant change from yesterday. Patient is followed closely by nephrology with plan to continue IV Lasix encourage oral protein intake and repeat labs tomorrow. Patient has seen by psychiatry with expectation of some cognitive clearing so they can expand the psychiatric assessment. Patient is still quite confused unable to answer questions and follow commands. He has been afebrile, heart rate 88, blood pressure 106/59, pulse ox 97% on 4 L nasal cannula. Sodium 128, potassium 4.0, chloride 85, CO2 38, BUN 63 creatinine 1.32. Blood sugars are running between 100 4891. TSH 1.250. Urinalysis negative for infection. Sodium 38. 06/30: The patient is awake this morning. He knows where he is at. He states he normally drinks a fifth of liquor per day. He is able to verbalize that he would like to have it inhaler when he leaves the hospital. Patient is followed by pulmonary medicine Repeat chest x-ray reveals improved aeration at the left base. Continued extensive consolidation or atelectasis of the right lower lobe. Patient has been afebrile, heart rate 79, blood pressure 126/76, pulse ox 92% on 3 L. desk monitor is atrial fibrillation with controlled rate. Repeat blood work reveals hemoglobin 9.7, platelet count 129. Sodium 132, potassium 3.1, chloride 89, CO2 39, BUN 60 and creatinine 1.03. Blood sugars are running between 172 and 222. Patient is having good urine output. ROS Constitutional: Denies chills, Denies fever, endorses lethargy Denies poor appetite, endorses weakness, Denies weight loss Eyes: denies decreased vision, denies diplopia, denies discharge, denies pain Ears: deny: decreased hearing Ears, nose, mouth and throat: Denies dental pain, Denies headache, Denies nasal discharge, Denies nose pain Cardiovascular: Denies chest pain, Denies decreased exercise tolerance, Denies edema, Denies high blood pressure, Denies irregular heart beat, Denies palpitations, Denies paroxysmal nocturnal dyspnea, Denies rapid heart beat, Denies shortness of breath Respiratory: Endorses endorsesnies dyspnea, Denies home oxygen, Denies wheezing Gastrointestinal: Denies abdominal pain, Denies change in bowel habits, Denies coffee ground emesis, Denies early satiety, Denies excessive gas, Denies heartburn, Denies hematemesis, Denies hematochezia, Denies loss of appetite, Denies nausea, Denies vomiting Genitourinary: Denies dysuria, Denies flank pain, Denies kidney stones, Denies menorrhagia, Denies urgency, Denies urinary frequency Musculoskeletal: Denies gait dysfunction, Denies limitation of motion, Denies morning stiffness, Denies muscle cramps Integumentary: Denies rash, Denies wounds, Denies brittle nails, Denies change in hair/nails, Denies darkening of skin Neurological: Denies balance difficulties, Denies change in speech, Denies double vision, noted mental status change, noted gait dysfunction, Denies loss of vision, Denies motor disturbance, Denies numbness, Denies paralysis, Denies paresthesias, Denies seizures Psychiatric: Denies anxiety, Denies depression Endocrine: Denies excessive sweating, Denies excessive thirst, Denies high blood sugars, Denies palpitations Hematologic/Lymphatic: Denies easy bruising, Denies lymphadenopathy Physical exam - Constitutional General appearance: drowsy wakes up to verbal stimuli, no acute distress noted - EENT Eyes: anicteric sclerae, PERRLA, normal appearance conjunctival injection ENT: hearing grossly normal - Neck Neck: no lymphadenopathy, normal ROM, no other, no rigidity, no stridor, no thyromegaly - Respiratory Respiratory: Decreased air entry with bibasilar Crackles improved wheezing - Cardiovascular Rhythm: Irregularly irregular tachycardic Heart sounds: normal: S1, S2 Abnormal Heart Sounds: no systolic murmur, no diastolic murmur, no rub, no S3 Gallop, no S4 Gallop, no click, no other - Gastrointestinal General gastrointestinal: normal bowel sounds, soft nontender but distended - Integumentary Integumentary: There is full extremities appear flushed with Influenza A and B1+ pitting edema, peripheral pulses 2+ with less than 2 second capillary refill, purplish discoloration of toes - Neurologic patient is noncooperative, does move all extremities gait could not be assessed - Musculoskeletal Musculoskeletal: Gait could not be assessed strength equal bilaterally - Psychiatric PsychiatriC Alert oriented 3 Assessment and plan #1 acute metabolic encephalopathy secondary to alcohol intoxication and hyponatremia and elevated ammonia levels. Seizure precautions ordered. Fall precautions. #2 acute alcohol intoxication with alcohol dependence with history of alcohol withdrawal including DTs alcohol withdrawal protocol initiated. Vitamin supplemented. CIWA protocol. #3 acute suicidal thoughts. Psychiatry consult appreciated and we will be reassessing when patient's cognition is improved. #4 thrombocytopenia secondary to alcohol abuse and liver dysfunction continue to monitor hold anticoagulants #hyperosmolar hyponatremia secondary to alcohol nephrology consult appreciated. Continue IV Lasix 40 mg every 12 hours. #6 acute hypoxic respiratory failure with evidence of aspiration of recent chest x-ray evidence of volume overload on chest x-ray Lasix IV 40 twice a day initiated 1+ pitting edema also noted on the lower extremities.. Patient received 1-1/2 L of IV fluids in the ER and discontinue IV fluids at this moment Continuing diuretics. I&O monitoring daily weights. Zosyn initiated #7 acute COPD exacerbation area continue Solu-Medrol decreased to 40 mg every 8 hours, continue DuoNeb's as needed for shortness of breath. Sputum culture ordered. Pulmonary consult placed #8 microscopic bleed per rectum positive fecal occult hemoglobin stable continue monitor CBC may be related to gastritis secondary to alcohol abuse, Protonix 40 once daily #9 polysubstance abuse urine drug screen positive for meth and THC. Continue to monitor vitals. EKG negative for any ST or T-wave changes #10 acute kidney injury secondary to AtN. hold iv fluids due to volume overload . Repeat CMP #11 acute A. fib with RVR, chronic persistent. Continue Cardizem CD 180 mg daily. Hold eliquis. #10 code status full code #11 DVT prophylaxis hold anticoagulation due to thrombocytopenia DISCHARG PLAN TBD Impression and plan of care have been directed as dictated by the signing physician. Leticia Sweet nurse practitioner acting as scribe for signing physician. Objective - Vital Signs Vital signs: Vital Signs Temp 97.6 F 06/30/21 08:39 Pulse 79 06/30/21 08:39 Resp 18 06/30/21 08:39 BP 126/76 06/30/21 08:39 Pulse Ox 99 06/30/21 08:39 Intake & Output 01/06/30/21 06/30/21 18:59 06:59 18:59 Intake Total 720 240 Output Total 1800 1950 Balance -1080 -1710 Weight 107.1 kg Intake: Oral 720 240 Output: Urine 1800 1950 Other: Voiding Method Indwelling Catheter Indwelling Catheter Indwelling Catheter - Labs CBC & Chem 7: 06/30/21 07:36 06/30/21 07:36 Labs: Abnormal Lab Results - Last 24 Hours (Table) 06/29/21 06/29/21 06/29/21 Range/Units 11:58 16:46 20:07 RBC (4.30-5.90) m/uL Hgb (13.0-17.5) gm/dL Hct (39.0-53.0) % MCV (80.0-100.0) fL Plt Count (150-450) k/uL Lymphocytes # (1.0-4.8) k/uL Sodium (137-145) mmol/L Potassium (3.5-5.1) mmol/L Chloride (98-107) mmol/L Carbon Dioxide (22-30) mmol/L BUN (9-20) mg/dL Glucose (74-99) mg/dL POC Glucose (mg/dL) 191 H 190 H 216 H (75-99) mg/dL 06/30/21 06/30/21 06/30/21 Range/Units 05:36 07:36 07:36 RBC 3.06 L (4.30-5.90) m/uL Hgb 9.7 L (13.0-17.5) gm/dL Hct 31.1 L (39.0-53.0) % MCV 101.8 H (80.0-100.0) fL Plt Count 129 L (150-450) k/uL Lymphocytes # 0.2 L (1.0-4.8) k/uL Sodium 132 L (137-145) mmol/L Potassium 3.1 L (3.5-5.1) mmol/L Chloride 89 L (98-107) mmol/L Carbon Dioxide 39 H (22-30) mmol/L BUN 60 H (9-20) mg/dL Glucose 149 H (74-99) mg/dL POC Glucose (mg/dL) 222 H (75-99) mg/dL
[2021-06-30 16:58] LABS: Glucose,Whole Blood 128 mg/dL (75-99)
--- NOTE | 2021-06-30 16:59 | P.PN ---
Subjective Principal diagnosis: Patient is seen for follow-up for acute kidney injury and hyponatremia. He has had good urine output. He has a Zaragoza catheter. Renal function has improved with creatinine down to 1.03 mg/dL. Sodium has improved as well it is up to 132. Currently patient is being diuresed. He is maintained on IV Lasix. 40 mg IV every 12 hours. No new complaints today. Objective - Vital Signs Vital signs: Vital Signs Temp 97.6 F 06/30/21 15:51 Pulse 114 H 06/30/21 15:51 Resp 18 06/30/21 15:51 BP 125/71 06/30/21 15:51 Pulse Ox 97 06/30/21 15:51 Intake & Output 06/29/21 06/30/21 06/30/21 18:59 06:59 18:59 Intake Total 720 240 237 Output Total 1800 1950 2150 [facility] -[id number] -4226 Weight 107.1 kg Intake: Oral 720 240 237 Output: Urine 1800 1950 2150 Other: Voiding Method Indwelling Catheter Indwelling Catheter Indwelling Catheter - Exam On examination patient is comfortable awake is not in any acute distress. Confused. Mildly short of breath. Examination of the heart S1 and S2 examination lungs decreased breath sounds at the bases Examination lower extremities shows edema 1+ bilaterally SAIL REPAIR PERSON exam shows patient is moving all 4 extremities - Labs CBC & Chem 7: 06/30/21 07:36 06/30/21 07:36 Labs: Abnormal Lab Results - Last 24 Hours (Table) 06/29/21 06/30/21 06/30/21 Range/Units 20:07 05:36 07:36 RBC (4.30-5.90) m/uL Hgb (13.0-17.5) gm/dL Hct (39.0-53.0) % MCV (80.0-100.0) fL Plt Count (150-450) k/uL Lymphocytes # (1.0-4.8) k/uL Sodium 132 L (137-145) mmol/L Potassium 3.1 L (3.5-5.1) mmol/L Chloride 89 L (98-107) mmol/L Carbon Dioxide 39 H (22-30) mmol/L BUN 60 H (9-20) mg/dL Glucose 149 H (74-99) mg/dL POC Glucose (mg/dL) 216 H 222 H (75-99) mg/dL 06/30/21 06/30/21 Range/Units 07:36 11:57 RBC 3.06 L (4.30-5.90) m/uL Hgb 9.7 L (13.0-17.5) gm/dL Hct 31.1 L (39.0-53.0) % MCV 101.8 H (80.0-100.0) fL Plt Count 129 L (150-450) k/uL Lymphocytes # 0.2 L (1.0-4.8) k/uL Sodium (137-145) mmol/L Potassium (3.5-5.1) mmol/L Chloride (98-107) mmol/L Carbon Dioxide (22-30) mmol/L BUN (9-20) mg/dL Glucose (74-99) mg/dL POC Glucose (mg/dL) 172 H (75-99) mg/dL Assessment and Plan Assessment: 1. Hyponatremia, hyperosmolar associated with high ETOH levels as well as hypervolemic hyponatremia. Currently being diuresed. Sodium level is improving. 2. Acute kidney injury secondary to hemodynamic ATN with low blood pressures. Baseline creatinine around 1.0. 3. Volume overload currently maintained on IV Lasix. 4. ETOH abuse 5. Suicidal ideation with history of depression, evaluated by psych. Plan: 1. Continue with IV Lasix 2. Encourage increase oral intake particularly protein 3. Repeat labs in a.m. 4. Replace potassium.
[2021-06-30 20:22] LABS: Glucose,Whole Blood 173 mg/dL (75-99)
[2021-06-30] MEDS ORDERED: DILTIAZEM ORAL 60 MG TAB PO STA (23:00)
--- NOTE | 2021-06-30 23:50 | PN ---
PROGRESS NOTE PSYCHIATRIC CONSULTATION FOLLOW-UP NOTE: DATE OF SERVICE: 06/30/2021. PURPOSE FOR CONSULTATION: Evaluate for depression with suicidal ideation in the face of alcohol intoxication. INTERVAL HISTORY: The patient has been doing fair. He continues with significant pulmonary issues with right lower lobe atelectasis. From a psychiatric standpoint, the patient has been doing fair. He has progressed through most of the detox period. Nursing notes that overall his communication has improved and he is showing better orientation. He sleeps on and off in the day. His appetite is fairly good. For the most part, vital signs have remained stable, with his pulse generally running in the 110 range. When I talked to the patient today, he was eating his supper. He answered a few questions though did not say a lot. He was not able to give a very clear history regarding his drinking though does say he has been in a number of rehab facilities. He said his last admission was at [facility] just in the past few weeks. I do not have information to confirm if that is accurate. He is able to say that he drinks on a daily basis. He notes that he lives with two other people in the house; for the most part he stays isolated. He does not get out in the community. He said that his mood has been down, and he hopes to get some help with that. When I talked to him today, he had a reserved manner. He did not say a lot. His affect was blunted, his mood reserved. He did not make any statements that suggested thoughts of self-harm. He acknowledged that he had been having thoughts that way without intent or plan. He was denying suicidal thinking at the time that we talked. There was no indication of thought disorder. The patient did not make an effort to answer formal cognitive questions. ASSESSMENT: I will continue the current diagnosis and treatment plan. The patient is progressing through the detox period and is at a point where he could be tapered off of benzodiazepines. There might be indications for medications to help with his mood, though realistically the main focus of any psychotropic medications at this point would be to help ameliorate acute withdrawal symptoms, which he can anticipate over the next 4 to 6 weeks. Given that he seems to be managing adequately and showing gradual improvement cognitively, I would reserve starting any psychotropics at this time in his current treatment, though we will recommend that Psychiatry continue to follow to evaluate for further treatment options. MMODL / IJN: [id number] /
[2021-07-01] MEDS: IPRATROPIUM-ALBUTEROL 3 ML NEB INHALATION PRN (05:12)
[2021-07-01 06:24] LABS: Glucose,Whole Blood 160 mg/dL (75-99)
[2021-07-01] MEDS: PANTOPRAZOLE 40 MG TABLET PO SCH (06:55)
[2021-07-01] MEDS: INSULIN ASPART (NovoLOG) 100 UNIT/ML VIAL SQ SCH ×4 (06:55→20:32)
[2021-07-01] MEDS: IPRATROPIUM-ALBUTEROL 3 ML NEB INHALATION SCH ×4 (08:43→20:45)
[2021-07-01] MEDS: PIPERACILLIN-TAZOBACTAM 3.375 GM in SODIUM CHLORIDE 0.9% 100 ML IVPB SCH ×3 (09:13→23:53)
[2021-07-01] MEDS: methylPREDNISolone SOD SUCCI 40 MG/ML 1 ML VIAL IV SCH (09:18)
[2021-07-01] MEDS: FUROSEMIDE 10 MG/ML 4 ML VIAL IV SCH ×2 (09:18→20:28)
[2021-07-01] MEDS: NICOTINE 21MG/24HR PATCH TRANSDERM SCH (09:18)
[2021-07-01] MEDS: LACTULOSE 20 GM/30 ML CUP PO SCH ×2 (09:18→20:28)
[2021-07-01] MEDS: DILTIAZEM CD 120 MG CAP.ER.24H PO SCH ×2 (09:19→20:28)
[2021-07-01 11:57] LABS: Glucose,Whole Blood 358 mg/dL (75-99)
--- NOTE | 2021-07-01 12:07 | P.PN ---
Subjective Progress Note Date: 07/01/21 This is a 61-year-old male patient with a history of atrial fibrillation, hypertension, depression, chronic obstructive pulmonary disease with chronic and ongoing tobacco dependence, D we have a alcohol use, marijuana use. He was brought into the emergency room yesterday after his roommate found him unre sponsive. In the emergency room he was more awake he denied even wanted to be at the hospital. He denied any suicidal/homicidal ideations. He was having issues with shortness of breath. No chest pain. No abdominal pain. No nausea or vomiting. Computed tomography scan of the brain revealed no acute intracranial hemorrhage or midline shift. There is mild diffuse age-related cerebral atrophy and moderate nonspecific white matter changes. Chest x-ray revealed evidence of cardiomegaly with tiny bilateral pleural effusions and mild interstitial edema suspected CHF. EKG revealed atrial fibrillation with a right bundle branch block and white count 4.5. Hemoglobin 12.0. Platelet count 76, 000. Sodium 120. Potassium 5.0. BUN 41. Creatinine 1.88. Troponins negative 2. ProBNP 2300. Serum osmolality 332. Urine osmolality 382. Urine random sodium less than 20. Stool for occult blood positive. Urine drug screen positive for methamphetamines and marijuana. The patient is seen today in consultation on the selective care unit. He is currently resting fairly comfortably in bed. He is confused at times. Trying to get out of bed. voting machine repairer is at the bedside. He is maintaining O2 saturations at 90% on 3 L/m per nasal cannula. He's been afebrile. Hemodynamically stable. Today's chest x- ray reveals a right lower lobe opacity with the left lower lobe opacity developi ng infectious process. Stable cardiomegaly and mild pulmonary vascular congestion. Evidence of COPD. He's been initiated on IV Solu-Medrol, bronchodilators, IV diuretics. NicoDerm patch in place. He is in the CIWA protocol. On 06/28/2021 patient seen in follow-up on selective care unit, he is currently lethargic, he has just received some IV Ativan for alcohol withdrawal symptoms. Patient has been receiving daily dose of IV Lasix 40 mg, he is on IV Solu- Medrol, Zosyn for possibility of aspiration related pneumonia. Today's chest x- ray showing right lower lobe pneumonia or atelectasis, and we'll effusion was difficult to exclude. He is currently on BiPAP support with pressures of 14 and 6 and 40% and his pulse ox is 97%. Lung sounds are diminished bilaterally, with expiratory wheezing. Overall seems to be in no acute distress, he is arousable to verbal and tactile stimulation. Labs have been reviewed, patient had a set of blood gases done earlier showing pO2 of 262, pCO2 of 65 and pH of 7.26 this was done on FiO2 of 100% and FiO2 has since been dropped down to 40%, serum s odium is 122, potassium is 5.5, chloride is 88, BUN of 72 and creatinine is 1.56. On 06/29/2021 patient seen in follow-up. Patient is currently on 4 L of oxygen the pulse ox of 97%, he sleepy, still confused, but not agitated, lung sounds are diminished, without rhonchi or wheezing, he is off BiPAP support, he is asking for water, he feels thirsty. Vitals is having stable overnight, afebrile, his chest x-ray shows cardiomegaly with right greater than left bilateral lower lung acute infiltrates and/or atelectasis with right-sided volume loss without significant change from one day earlier. His labs have been reviewed, sodium is 128, potassium is 4.0, chloride is 85, CO2 38, BUN is 63, creatinine is 1.32. Sodium is improved, patient has been receiving diuretics, and this is being managed by nephrology on the case, patient is currently on Lasix 40 mg every 12 hours. He remains on IV steroids with Solu-Medrol 60 mg every 6 hours, he is on Zosyn for possibility of aspiration related pneumonia. The patient is seen today 06/30/2021 in follow-up on the selective care unit. He is currently resting comfortably in bed. Awake and alert in no acute distress. He is maintaining O2 saturations in the 90s on 3 L high flow nasal cannula. He's been afebrile. Hemodynamically stable. Chest x-ray reveals improved aeration in the left lung base. Continued extensive consolidation or atelectasis at the right lower lobe. White count 4.9. Hemoglobin 9.7. Platelet count 129,000. Lymphocytes 0.2. Sodium 132. Potassium 3.1. Creatinine 1.03. Glucose 149. He is continued on DuoNeb inhalations, IV diuretics, IV Solu-Medrol, antibiotics in the form of Zosyn. NicoDerm patch in place. Continued in the CIWA protocol. The patient is seen today 07/01/2021 in follow-up on selective care unit. He remains awake and alert in no acute distress. Resting fairly comfortably in bed. Maintaining O2 saturations in the 90s on 3 L/m per nasal cannula. Glucose 160. He remains on Zosyn, IV Solu-Medrol, bronchodilators. NicoDerm patch is in place. Remains on IV diuretics. Currently in a -1.9 L balance. Weight is down to 106.2 kg. Objective - Vital Signs Vital signs: Vital Signs Temp 97.7 F 07/01/21 08:06 Pulse 86 07/01/21 11:48 Resp 16 07/01/21 09:00 BP 114/67 07/01/21 08:06 Pulse Ox 99 07/01/21 08:06 Intake & Output 06/30/21 07/01/21 07/01/21 18:59 06:59 18:59 Intake Total 237 500 Output Total 2150 1900 Balance -1912 -1399 Weight 106.2 kg Intake: Oral 237 500 Output: Urine 2149 1899 Other: Voiding Method Indwelling Catheter Indwelling Catheter Indwelling Catheter - Exam GENERAL EXAM: Awake, alert 61 yo male on 3 L of oxygen with pulse ox of 99%, no acute distress. HEAD: Normocephalic/atraumatic. EYES: Normal reaction of pupils, equal size. Conjunctiva pink, sclera white. NOSE: Clear with pink turbinates. THROAT: No erythema or exudates. NECK: No masses, no JVD, no thyroid enlargement, no adenopathy. CHEST: No chest wall deformity. Symmetrical expansion. LUNGS: Equal air entry with diminished breath sounds, no crackles, no rhonchi CVS: Regular rate and rhythm, normal S1 and S2, no gallops, no murmurs, no rubs ABDOMEN: Soft, nontender. No hepatosplenomegaly, normal bowel sounds, no guarding or rigidity. EXTREMITIES: No clubbing, no edema, no cyanosis, 2+ pulses and upper and lower extremities. MUSCULOSKELETAL: Muscle strength and tone normal. SPINE: No scoliosis or deformity SKIN: No rashes CENTRAL NERVOUS SYSTEM: Awake, cooperative. No focal deficits, tone is normal in all 4 extremities. - Labs CBC & Chem 7: 06/30/21 07:36 06/30/21 07:36 Labs: Abnormal Lab Results - Last 24 Hours (Table) 06/30/21 06/30/21 06/30/21 Range/Units 11:57 16:55 20:21 POC Glucose (mg/dL) 172 H 128 H 173 H (75-99) mg/dL 07/01/21 07/01/21 Range/Units 06:21 11:55 POC Glucose (mg/dL) 160 H 358 H (75-99) mg/dL Assessment and Plan Assessment: 1 Acute altered mental status of unclear etiology, urine drug screen positive for methamphetamines and marijuana, hyponatremia, hypoxemia. Improved. Awake and alert today. 2 Acute hypoxemic respiratory failure secondary to suspected congestive heart failure, COPD exacerbation, early infiltrates and possible apiration pneumonia here chest x-ray showing improvement in the left lung base. Continued consolidation in the right lower lobe. On 3 L nasal cannula now. 3 Hyponatremia suspect secondary to daily alcohol use in the improved, currently 132 4 Acute renal failure suspect secondary to dehydration, improved with a creatinine of 1.03 5 Thrombocytopenia secondary to daily alcohol use improved currently 129,000 6 Daily heavy alcohol use 7 Marijuana use 8 Chronic tobacco dependence 9 Stool for occult blood positive Plan: The patient was seen and evaluated More awake and alert, cooperative Titrate down the FiO2 as tolerated Transitioned to oral prednisone Continue bronchodilators Nicoderm patch in place Possible discharge to home in a.m. I, the cosigning physician, performed a history & physical examination of the patient. Lungs sounds bibasilar crackles. Maintaining good O2 saturations in the 90s on 3 L/m per nasal cannula. I discussed the assessment and plan of care with my nurse practitioner, Tiffanie Marr. I attest to the above note as dictated by her.
--- NOTE | 2021-07-01 12:28 | P.PN ---
Subjective Principal diagnosis: Patient is seen for follow-up for acute kidney injury and hyponatremia. He has had good urine output. He has a Zaragoza catheter. Renal function has improved with creatinine down to 1.03 mg/dL. Sodium has improved as well it is up to 132. Currently patient is being diuresed. He is maintained on IV Lasix. 40 mg IV every 12 hours. No new complaints today. Objective - Vital Signs Vital signs: Vital Signs Temp 97.5 F L 07/01/21 12:19 Pulse 110 H 07/01/21 12:19 Resp 18 07/01/21 12:19 BP 118/68 07/01/21 12:19 Pulse Ox 98 07/01/21 12:19 Intake & Output 06/30/21 07/01/21 07/01/21 18:59 06:59 18:59 Intake Total 237 500 Output Total 2150 1900 2500 Balance -1913 -1400 -2500 Weight 106.2 kg Intake: Oral 237 500 Output: Urine 2150 1900 2500 Other: Voiding Method Indwelling Catheter Indwelling Catheter Indwelling Catheter - Exam On examination patient is comfortable awake is not in any acute distress. Confused. Mildly short of breath. Examination of the heart S1 and S2 examination lungs decreased breath sounds at the bases Examination lower extremities shows no significant edema bilaterally [employer] APPR[employer]IS[employer] exam shows patient is moving all 4 extremities - Labs CBC & Chem 7: 06/30/21 07:36 06/30/21 07:36 Labs: Abnormal Lab Results - Last 24 Hours (Table) 06/30/21 06/30/21 07/01/21 Range/Units 16:55 20:21 06:21 POC Glucose (mg/dL) 128 H 173 H 160 H (75-99) mg/dL 07/01/21 Range/Units 11:55 POC Glucose (mg/dL) 358 H (75-99) mg/dL Assessment and Plan Assessment: 1. Hyponatremia, hyperosmolar associated with high ETOH levels as well as hypervolemic hyponatremia. Currently being diuresed. Sodium level is improving. 2. Acute kidney injury secondary to hemodynamic ATN with low blood pressures. Baseline creatinine around 1.0. 3. Volume overload currently maintained on IV Lasix. 4. ETOH abuse 5. Suicidal ideation with history of depression, evaluated by psych. Plan: 1. Continue with IV Lasix 2. Encourage increase oral intake particularly protein 3. Repeat labs in a.m.
--- NOTE | 2021-07-01 14:22 | P.PN ---
Subjective Progress Note Date: 07/01/21 61 year old male with history of hypertension, atrial fibrillation, atrial flutter, alcohol abuse, COPD who has been seen multiple times in the ER for alcohol intoxication and suicidal ideation in the past was brought in by EMS as his roommate found him unresponsive. Patient drinks daily half a gallon. Patient evaluated in the ER. He would wake up intermittently say a few words and go back to sleep. Patient appears trunk, sees he wants to and appears that he is seeing things in the room as he is pointing at lopes. Patient is unable to maintain eye contact as he drifts into sleep. She received breathing treatment on his way to the hospital and also endorses before he came to the hospital. He received another nebulizing treatment before I evaluated him. Patient continues to wheeze significantly on evaluation. He denies any cough or shortness of breath or chest pain. Patient was afebrile tachycardic at 106, respiratory rate of 15 blood pressure 107/78 oxygen saturation 89% on room air improved to 97% on 2 L. EKG was obtained showed A. fib with rapid response of response at 120 CT of the brain was negative for any acute abnormality does have acute mastoiditis. Chest x-ray suggestive of mild congestive heart failure. Labs are reviewed patient has a WBC of 4.2 hemoglobin 12.7 sodium 118 chloride 82 bicarb 22 BUN 37 creatinine is 0.03. Ammonia level is a 25 alcohol level 218Patient is alcohol intoxication with suicidal ideation. Sitter at bedside ordered. We will discontinue IV fluids as patient appears volume overloaded. Solu-Medrol was initiated at 60 IV every 6 with DuoNeb's with pulmonary consult. Sodium levels with the acetaminophen urine osmolality were ordered. Nephrology consulted for management of sodium. 06/27 patient evaluated bedside is alert and answer questions appropriately. Sitter at bedside. Patient is currently 84% on 3 L of oxygen. Repeat chest x- ray suggestive of right lower lid and a troponin airspace opacity along with le ft lower airspace opacity with developing infectious process with COPD changes 06/28 patient evaluated at bedside lying comfortably in bed. Patient denies any chest pain or shortness of breath. Vitals are stable patient continues from and hyponatremia with a repeat sodium 122 potassium 5.5 chloride 88 BUN 72 creatinine 1.56. Serum osmolarity continues to remain high 305 continue Lasix 40 IV twice a day. Solu-Medrol reduced to every 8 8 hours 60 mg. Nephrology recommendation appreciated 06/29: Repeat chest x-ray reveals cardiomegaly with right greater than left bilateral lower lung acute infiltrates and/or atelectasis with right-sided volume loss remain present. No significant change from yesterday. Patient is followed closely by nephrology with plan to continue IV Lasix encourage oral protein intake and repeat labs tomorrow. Patient has seen by psychiatry with expectation of some cognitive clearing so they can expand the psychiatric assessment. Patient is still quite confused unable to answer questions and follow commands. He has been afebrile, heart rate 88, blood pressure 106/59, pulse ox 97% on 4 L nasal cannula. Sodium 128, potassium 4.0, chloride 85, CO2 38, BUN 63 creatinine 1.32. Blood sugars are running between 100 4891. TSH 1.250. Urinalysis negative for infection. Sodium 38. 06/30: The patient is awake this morning. He knows where he is at. He states he normally drinks a fifth of liquor per day. He is able to verbalize that he would like to have it inhaler when he leaves the hospital. Patient is followed by pulmonary medicine Repeat chest x-ray reveals improved aeration at the left base. Continued extensive consolidation or atelectasis of the right lower lobe. Patient has been afebrile, heart rate 79, blood pressure 126/76, pulse ox 92% on 3 L. monitor technician is atrial fibrillation with controlled rate. Repeat blood work reveals hemoglobin 9.7, platelet count 129. Sodium 132, potassium 3.1, chloride 89, CO2 39, BUN 60 and creatinine 1.03. Blood sugars are running between 172 and 222. Patient is having good urine output. 07/01: Patient's mental status is improving. He is able to answer questions appropriately. Patient has been afebrile, heart rate in the 80s to 100s, blood pressure 118/60, pulse ox 90% on 3 L nasal cannula. Capillary blood glucose running between 160 and 358. Levemir 10 units at bedtime added. Zaragoza catheter remains in place. Solar Sales Representative recommended continuing IV Lasix encourage oral protein intake.. ROS Constitutional: Denies chills, Denies fever, endorses lethargy Denies poor appetite, endorses weakness, Denies weight loss Eyes: denies decreased vision, denies diplopia, denies discharge, denies pain Ears: deny: decreased hearing Ears, nose, mouth and throat: Denies dental pain, Denies headache, Denies nasal discharge, Denies nose pain Cardiovascular: Denies chest pain, Denies decreased exercise tolerance, Denies edema, Denies high blood pressure, Denies irregular heart beat, Denies pa lpitations, Denies paroxysmal nocturnal dyspnea, Denies rapid heart beat, Denies shortness of breath Respiratory: Endorses endorsesnies dyspnea, Denies home oxygen, Denies wheezing Gastrointestinal: Denies abdominal pain, Denies change in bowel habits, Denies coffee ground emesis, Denies early satiety, Denies excessive gas, Denies heartburn, Denies hematemesis, Denies hematochezia, Denies loss of appetite, Denies nausea, Denies vomiting Genitourinary: Denies dysuria, Denies flank pain, Denies kidney stones, Denies menorrhagia, Denies urgency, Denies urinary frequency Musculoskeletal: Denies gait dysfunction, Denies limitation of motion, Denies morning stiffness, Denies muscle cramps Integumentary: Denies rash, Denies wounds, Denies brittle nails, Denies change in hair/nails, Denies darkening of skin Neurological: Denies balance difficulties, Denies change in speech, Denies double vision, noted mental status change, noted gait dysfunction, Denies loss of vision, Denies motor disturbance, Denies numbness, Denies paralysis, Denies paresthesias, Denies seizures Psychiatric: Denies anxiety, Denies depression Endocrine: Denies excessive sweating, Denies excessive thirst, Denies high blood sugars, Denies palpitations Hematologic/Lymphatic: Denies easy bruising, Denies lymphadenopathy Physical exam - Constitutional General appearance: drowsy wakes up to verbal stimuli, no acute distress noted - EENT Eyes: anicteric sclerae, PERRLA, normal appearance conjunctival injection ENT: hearing grossly normal - Neck Neck: no lymphadenopathy, normal ROM, no other, no rigidity, no stridor, no thyromegaly - Respiratory Respiratory: Decreased air entry with bibasilar Crackles improved wheezing - Cardiovascular Rhythm: Irregularly irregular tachycardic Heart sounds: normal: S1, S2 Abnormal Heart Sounds: no systolic murmur, no diastolic murmur, no rub, no S3 Gallop, no S4 Gallop, no click, no other - Gastrointestinal General gastrointestinal: normal bowel sounds, soft nontender but distended - Integumentary Integumentary: There is full extremities appear flushed with Influenza A and B1+ pitting edema, peripheral pulses 2+ with less than 2 second capillary refill, purplish discoloration of toes - Neurologic patient is noncooperative, does move all extremities gait could not be assessed - Musculoskeletal Musculoskeletal: Gait could not be assessed strength equal bilaterally - Psychiatric PsychiatriC Alert oriented 3 Assessment and plan #1 acute metabolic encephalopathy secondary to alcohol intoxication and hyponatremia and elevated ammonia levels. Fall precautions. #2 acute alcohol intoxication with alcohol dependence with history of alcohol withdrawal including DTs alcohol withdrawal protocol initiated. Vitamin supplemented. CIWA protocol. #3 acute suicidal thoughts. Psychiatry consult appreciated and we will be reassessing when patient's cognition is improved. #4 thrombocytopenia secondary to alcohol abuse and liver dysfunction continue to monitor hold anticoagulants #hyperosmolar hyponatremia secondary to alcohol nephrology consult appreciated . Continue IV Lasix 40 mg every 12 hours. #6 acute hypoxic respiratory failure with evidence of aspiration pneumonia, acute diastolic heart failure. Continue Lasix IV 40 twice a day, I&O monitoring daily weights. Zosyn, prednisone to start tomorrow #7 acute COPD exacerbation. Discontinue Solu-Medrol and start prednisone in the morning. continue DuoNeb's as needed for shortness of breath. Sputum culture ordered. Pulmonary consult appreciated #8 microscopic bleed per rectum positive fecal occult hemoglobin stable continue monitor CBC may be related to gastritis secondary to alcohol abuse, Protonix 40 once daily #9 polysubstance abuse urine drug screen positive for meth and THC. Continue to monitor vitals. EKG negative for any ST or T-wave changes #10 acute kidney injury secondary to AtN. #11 acute A. fib with RVR, chronic persistent. Continue Cardizem CD 180 mg daily. Hold eliquis. #10 code status full code #11 DVT prophylaxis hold anticoagulation due to thrombocytopenia DISCHARG PLAN TBD Impression and plan of care have been directed as dictated by the signing ph ysician. Leticia Sweet nurse practitioner acting as scribe for signing physician. Objective - Vital Signs Vital signs: Vital Signs Temp 97.7 F 07/01/21 08:06 Pulse 111 H 07/01/21 09:00 Resp 16 01/26/22 09:00 BP 114/67 07/01/21 08:06 Pulse Ox 99 07/01/21 08:06 Intake & Output 06/30/21 07/01/21 07/01/21 18:59 06:59 18:59 Intake Total 237 500 Output Total 2150 1900 Balance -1913 -1400 Weight 106.2 kg Intake: Oral 237 500 Output: Urine 2149 1899 Other: Voiding Method Indwelling Catheter Indwelling Catheter Indwelling Catheter - Labs CBC & Chem 7: 06/30/21 07:36 06/30/21 07:36 Labs: Abnormal Lab Results - Last 24 Hours (Table) 06/30/21 06/30/21 06/30/21 Range/Units 11:57 16:55 20:21 POC Glucose (mg/dL) 172 H 128 H 173 H (75-99) mg/dL 07/01/21 Range/Units 06:21 POC Glucose (mg/dL) 160 H (75-99) mg/dL
[2021-07-01] MEDS: ACETAMINOPHEN TAB 325 MG TAB PO PRN ×2 (16:00→23:56)
[2021-07-01 16:50] LABS: Glucose,Whole Blood 139 mg/dL (75-99)
[2021-07-01 20:12] LABS: Glucose,Whole Blood 272 mg/dL (75-99)
[2021-07-01] MEDS: INSULIN DETEMIR (LEVEMIR) 100 UNIT/ML SYR SQ SCH (20:28)
[2021-07-02 06:05] LABS: Glucose,Whole Blood 140 mg/dL (75-99)
[2021-07-02] MEDS: PANTOPRAZOLE 40 MG TABLET PO SCH (06:24)
[2021-07-02] MEDS: INSULIN ASPART (NovoLOG) 100 UNIT/ML VIAL SQ SCH ×4 (06:24→22:17)
[2021-07-02] MEDS: IPRATROPIUM-ALBUTEROL 3 ML NEB INHALATION SCH ×4 (07:01→20:54)
[2021-07-02] MEDS: PIPERACILLIN-TAZOBACTAM 3.375 GM in SODIUM CHLORIDE 0.9% 100 ML IVPB SCH ×2 (10:16→18:03)
[2021-07-02] MEDS: predniSONE 20 MG TAB PO SCH (10:19)
[2021-07-02] MEDS: NICOTINE 21MG/24HR PATCH TRANSDERM SCH (10:19)
[2021-07-02] MEDS: DILTIAZEM CD 120 MG CAP.ER.24H PO SCH ×2 (10:19→20:10)
[2021-07-02] MEDS: FUROSEMIDE 10 MG/ML 4 ML VIAL IV SCH (10:19)
[2021-07-02] MEDS: LACTULOSE 20 GM/30 ML CUP PO SCH ×2 (10:19→20:10)
[2021-07-02 11:20] LABS: Calcium 8.7 mg/dL (8.4-10.2); Potassium 3.7 mmol/L (3.5-5.1)
[2021-07-02 11:53] LABS: Glucose,Whole Blood 133 mg/dL (75-99)
--- NOTE | 2021-07-02 12:04 | P.PN ---
Subjective Principal diagnosis: Patient is seen for follow-up for acute kidney injury and hyponatremia. He has had good urine output. He has a Zaragoza catheter. Renal function has improved with creatinine down to 1.1mg/dL. Sodium has improved as well it is up to 133. Currently patient is being diuresed. He is maintained on IV Lasix. 40 mg IV every 12 hours. No new complaints today. Objective - Vital Signs Vital signs: Vital Signs Temp 98.6 F 07/02/21 08:35 Pulse 114 H 07/02/21 11:15 Resp 16 07/02/21 08:35 BP 114/51 07/02/21 08:35 Pulse Ox 97 07/02/21 08:35 Intake & Output 07/01/21 07/02/21 07/02/21 18:59 06:59 18:59 Intake Total 1500 480 Output Total 4000 2525 Balance -2500 -2525 480 Intake: Oral 1500 480 Output: Urine 4000 2525 Other: Voiding Method Indwelling Catheter Indwelling Catheter Indwelling Catheter # Bowel Movements 1 - Exam On examination patient is comfortable awake is not in any acute distress. Confused. Mildly short of breath. Examination of the heart S1 and S2 examination lungs decreased breath sounds at the bases Examination lower extremities shows no significant edema bilaterally INSULATION CUTTER exam shows patient is moving all 4 extremities - Labs CBC & Chem 7: 06/30/21 07:36 07/02/21 10:39 Labs: Abnormal Lab Results - Last 24 Hours (Table) 07/01/21 07/01/21 07/02/21 Range/Units 16:48 20:10 06:02 Sodium (137-145) mmol/L Chloride (98-107) mmol/L Carbon Dioxide (22-30) mmol/L BUN (9-20) mg/dL Glucose (74-99) mg/dL POC Glucose (mg/dL) 139 H 272 H 140 H (75-99) mg/dL 07/02/21 07/02/21 Range/Units 10:39 11:50 Sodium 133 L (137-145) mmol/L Chloride 84 L (98-107) mmol/L Carbon Dioxide 46 H* (22-30) mmol/L BUN 81 H (9-20) mg/dL Glucose 124 H (74-99) mg/dL POC Glucose (mg/dL) 133 H (75-99) mg/dL Assessment and Plan Assessment: 1. Hyponatremia, hyperosmolar associated with high ETOH levels as well as hypervolemic hyponatremia. Currently being diuresed. Sodium level is improving. 2. Acute kidney injury secondary to hemodynamic ATN with low blood pressures. Baseline creatinine around 1.0. 3. Volume overload currently maintained on IV Lasix. 4. ETOH abuse 5. Suicidal ideation with history of depression, evaluated by psych. 6. Metabolic alkalosis secondary to diuresis, will switch to by mouth Lasix Plan: 1. switch to by mouth Lasix 40 mg by mouth daily 2. Encourage increase oral intake particularly protein 3. Repeat labs in a.m.
--- NOTE | 2021-07-02 13:22 | P.PN ---
Subjective Progress Note Date: 07/02/21 61 year old male with history of hypertension, atrial fibrillation, atrial flutter, alcohol abuse, COPD who has been seen multiple times in the ER for alcohol intoxication and suicidal ideation in the past was brought in by EMS as his roommate found him unresponsive. Patient drinks daily half a gallon. Patient evaluated in the ER. He would wake up intermittently say a few words and go back to sleep. Patient appears trunk, sees he wants to and appears that he is seeing things in the room as he is pointing at lopes. Patient is unable to maintain eye contact as he drifts into sleep. She received breathing treatment on his way to the hospital and also endorses before he came to the hospital. He received another nebulizing treatment before I evaluated him. Patient continues to wheeze significantly on evaluation. He denies any cough or shortness of breath or chest pain. Patient was afebrile tachycardic at 106, respiratory rate of 15 blood pressure 107/78 oxygen saturation 89% on room air improved to 97% on 2 L. EKG was obtained showed A. fib with rapid response of response at 120 CT of the brain was negative for any acute abnormality does have acute mastoiditis. Chest x-ray suggestive of mild congestive heart failure. Labs are reviewed patient has a WBC of 4.2 hemoglobin 12.7 sodium 118 chloride 82 bicarb 22 BUN 37 creatinine is 0.03. Ammonia level is a 25 alcohol level 218Patient is alcohol intoxication with suicidal ideation. Sitter at bedside ordered. We will discontinue IV fluids as patient appears volume overloaded. Solu-Medrol was initiated at 60 IV every 6 with DuoNeb's with pulmonary consult. Sodium levels with the acetaminophen urine osmolality were ordered. Nephrology consulted for management of sodium. 06/27 patient evaluated bedside is alert and answer questions appropriately. Sitter at bedside. Patient is currently 84% on 3 L of oxygen. Repeat chest x- ray suggestive of right lower lid and a troponin airspace opacity along with le ft lower airspace opacity with developing infectious process with COPD changes 06/28 patient evaluated at bedside lying comfortably in bed. Patient denies any chest pain or shortness of breath. Vitals are stable patient continues from and hyponatremia with a repeat sodium 122 potassium 5.5 chloride 88 BUN 72 creatinine 1.56. Serum osmolarity continues to remain high 305 continue Lasix 40 IV twice a day. Solu-Medrol reduced to every 8 8 hours 60 mg. Nephrology recommendation appreciated 06/29: Repeat chest x-ray reveals cardiomegaly with right greater than left bilateral lower lung acute infiltrates and/or atelectasis with right-sided volume loss remain present. No significant change from yesterday. Patient is followed closely by nephrology with plan to continue IV Lasix encourage oral protein intake and repeat labs tomorrow. Patient has seen by psychiatry with expectation of some cognitive clearing so they can expand the psychiatric assessment. Patient is still quite confused unable to answer questions and follow commands. He has been afebrile, heart rate 88, blood pressure 106/59, pulse ox 97% on 4 L nasal cannula. Sodium 128, potassium 4.0, chloride 85, CO2 38, BUN 63 creatinine 1.32. Blood sugars are running between 100 4891. TSH 1.250. Urinalysis negative for infection. Sodium 38. 06/30: The patient is awake this morning. He knows where he is at. He states he normally drinks a fifth of liquor per day. He is able to verbalize that he would like to have it inhaler when he leaves the hospital. Patient is followed by pulmonary medicine Repeat chest x-ray reveals improved aeration at the left base. Continued extensive consolidation or atelectasis of the right lower lobe. Patient has been afebrile, heart rate 79, blood pressure 126/76, pulse ox 92% on 3 L. ward service supervisor is atrial fibrillation with controlled rate. Repeat blood work reveals hemoglobin 9.7, platelet count 129. Sodium 132, potassium 3.1, chloride 89, CO2 39, BUN 60 and creatinine 1.03. Blood sugars are running between 172 and 222. Patient is having good urine output. 07/01: Patient's mental status is improving. He is able to answer questions appropriately. Patient has been afebrile, heart rate in the 80s to 100s, blood pressure 118/60, pulse ox 90% on 3 L nasal cannula. Capillary blood glucose running between 160 and 358. Levemir 10 units at bedtime added. Zaragoza catheter remains in place. Fire Supervisor recommended continuing IV Lasix encourage oral protein intake.. 07/02: Patient is verbalizing that he still not feeling well enough to go home today. He is awake alert and oriented 3. His mental status is significantly improved. His plan is to return to his current living situation and social work has been working with him on this. Patient apparently has an oxygen concentrator but does not use it. We will be making arrangements for home oxygen therapy. He is pulse oxing 97% on 3 L. Heart rate is running in the 100 and teens to 121. Blood pressure 114/51. He has been afebrile. Low-dose Lopressor will be added to Cardizem for rate control for atrial fibrillation. Patient has had no signs of bleeding, eliquis will be started. ROS Constitutional: Denies chills, Denies fever, endorses lethargy Denies poor appetite, endorses weakness, Denies weight loss Eyes: denies decreased vision, denies diplopia, denies discharge Ears: deny: decreased hearing Ears, nose, mouth and throat: Denies dental pain, Denies headache, Denies nasal discharge, Denies nose pain Cardiovascular: Denies chest pain, Denies decreased exercise tolerance, Denies edema, Denies high blood pressure, Denies irregular heart beat, Denies palpitations, Denies paroxysmal nocturnal dyspnea, Denies rapid heart beat, Denies shortness of breath Respiratory: Endorses dyspnea, Denies home oxygen, Denies wheezing Gastrointestinal: Denies abdominal pain, Denies change in bowel habits, Denies coffee ground emesis, Denies early satiety, Denies excessive gas, Denies heartburn, Denies hematemesis, Denies hematochezia, Denies loss of appetite, Denies nausea, Denies vomiting Genitourinary: Denies dysuria, Denies flank pain, Denies kidney stones, Denies menorrhagia, Denies urgency, Denies urinary frequency Musculoskeletal: Denies gait dysfunction, Denies limitation of motion, Denies morning stiffness, Denies muscle cramps Integumentary: Denies rash, Denies wounds, Denies brittle nails, Denies change in hair/nails, Denies darkening of skin Neurological: Denies balance difficulties, Denies change in speech, Denies double vision, noted mental status change, noted gait dysfunction, Denies loss of vision, Denies motor disturbance, Denies numbness, Denies paralysis, Denies p aresthesias, Denies seizures Psychiatric: Denies anxiety, Denies depression Endocrine: Denies excessive sweating, Denies excessive thirst, Denies high blood sugars, Denies palpitations Hematologic/Lymphatic: Denies easy bruising, Denies lymphadenopathy Physical exam - Constitutional General appearance: Awake, 61-year-old male, no acute distress noted, currently on O2 at 3 L - EENT Eyes: anicteric sclerae, PERRLA, normal appearance conjunctival injection ENT: hearing grossly normal - Neck Neck: no lymphadenopathy, normal ROM, no other, no rigidity, no stridor, no thyromegaly - Respiratory Respiratory: Decreased air entry with bibasilar Crackles improved wheezing - Cardiovascular Rhythm: Irregularly irregular tachycardic Heart sounds: normal: S1, S2 Abnormal Heart Sounds: no systolic murmur, no diastolic murmur, no rub, no S3 Gallop, no S4 Gallop, no click, no other - Gastrointestinal General gastrointestinal: normal bowel sounds, soft nontender but distended - Integumentary Integumentary: T, peripheral pulses 2+ with less than 2 second capillary refill, purplish discoloration of toes - Neurologic patient is cooperative, does move all extremities - Musculoskeletal Musculoskeletal: Gait could not be assessed strength equal bilaterally - Psychiatric PsychiatriC Alert oriented 3 Assessment and plan #1 acute metabolic encephalopathy secondary to alcohol intoxication and hyponatremia and elevated ammonia levels. Fall precautions. #2 acute alcohol intoxication with alcohol dependence with history of alcohol withdrawal including DTs alcohol withdrawal protocol initiated. Vitamin supplemented. CIWA protocol. #3 acute suicidal thoughts. Psychiatry consult appreciated and we will be reassessing when patient's cognition is improved. #4 thrombocytopenia secondary to alcohol abuse and liver dysfunction continue to monitor hold anticoagulants #hyperosmolar hyponatremia secondary to alcohol nephrology consult appreciated. Continue IV Lasix 40 mg every 12 hours. #6 acute hypoxic respiratory failure with evidence of aspiration pneumonia, acute diastolic heart failure. Continue Lasix 40 mg oral daily, I&O monitoring daily weights. Zosyn, prednisone to start tomorrow #7 acute COPD exacerbation. Continue prednisone 40 mg oral daily, DuoNeb's as needed for shortness of breath. Sputum culture ordered. Pulmonary consult appreciated #8 microscopic bleed per rectum positive fecal occult hemoglobin stable continue monitor CBC may be related to gastritis secondary to alcohol abuse, Protonix 40 once daily #9 polysubstance abuse urine drug screen positive for meth and THC. Continue to monitor vitals. EKG negative for any ST or T-wave changes #10 acute kidney injury secondary to AtN. #11 acute A. fib with RVR, chronic persistent. Continue Cardizem CD 180 mg daily. Metoprolol tartrate 25 mg twice daily added, eliquis started at 5 mg twice daily. #10 code status full code #11 DVT eliquis DISCHARG PLAN Home on Tuesday Impression and plan of care have been directed as dictated by the signing physician. Leticia Sweet nurse practitioner acting as scribe for signing physician. Objective - Vital Signs Vital signs: Vital Signs Temp 98.0 F 07/02/21 02:14 Pulse 121 H 07/02/21 11:01 Resp 16 07/02/21 02:54 BP 144/82 07/02/21 02:14 Pulse Ox 95 07/02/21 02:14 Intake & Output 07/01/21 07/02/21 07/02/21 18:59 06:59 18:59 Intake Total 1500 480 Output Total 4000 2525 Balance -2500 -2525 480 Intake: Oral 1500 480 Output: Urine 4000 2525 Other: Voiding Method Indwelling Catheter Indwelling Catheter # Bowel Movements 1 - Labs CBC & Chem 7: 06/30/21 07:36 07/02/21 10:39 Labs: Abnormal Lab Results - Last 24 Hours (Table) 07/01/21 07/01/21 07/01/21 Range/Units 11:55 16:48 20:10 POC Glucose (mg/dL) 358 H 139 H 272 H (75-99) mg/dL 07/02/21 Range/Units 06:02 POC Glucose (mg/dL) 140 H (75-99) mg/dL
[2021-07-02] MEDS: METOPROLOL TARTRATE 12.5 MG TAB PO SCH ×2 (13:28→22:17)
--- NOTE | 2021-07-02 14:26 | P.PN ---
Subjective Progress Note Date: 07/02/21 Principal diagnosis: Atrial fibrillation. On 06/29/2021 patient seen in follow-up. Patient is currently on 4 L of oxygen the pulse ox of 97%, he sleepy, still confused, but not agitated, lung sounds are diminished, without rhonchi or wheezing, he is off BiPAP support, he is ask ing for water, he feels thirsty. Vitals is having stable overnight, afebrile, his chest x-ray shows cardiomegaly with right greater than left bilateral lower lung acute infiltrates and/or atelectasis with right-sided volume loss without significant change from one day earlier. His labs have been reviewed, sodium is 128, potassium is 4.0, chloride is 85, CO2 38, BUN is 63, creatinine is 1.32. Sodium is improved, patient has been receiving diuretics, and this is being managed by nephrology on the case, patient is currently on Lasix 40 mg every 12 hours. He remains on IV steroids with Solu-Medrol 60 mg every 6 hours, he is on Zosyn for possibility of aspiration related pneumonia. The patient is seen today 06/30/2021 in follow-up on the selective care unit. He is currently resting comfortably in bed. Awake and alert in no acute distress. He is maintaining O2 saturations in the 90s on 3 L high flow nasal cannula. He's been afebrile. Hemodynamically stable. Chest x-ray reveals i mproved aeration in the left lung base. Continued extensive consolidation or atelectasis at the right lower lobe. White count 4.9. Hemoglobin 9.7. Platelet count 129,000. Lymphocytes 0.2. Sodium 132. Potassium 3.1. Creatinine 1.03. Glucose 149. He is continued on DuoNeb inhalations, IV diu retics, IV Solu-Medrol, antibiotics in the form of Zosyn. NicoDerm patch in place. Continued in the CIAL protocol. The patient is seen today 07/01/2021 in follow-up on selective care unit. He remains awake and alert in no acute distress. Resting fairly comfortably in bed. Maintaining O2 saturations in the 90s on 3 L/m per nasal cannula. Glucose 160. He remains on Zosyn, IV Solu-Medrol, bronchodilators. NicoDerm patch is in place. Remains on IV diuretics. Currently in a -1.9 L balance. Weight is down to 106.2 kg. Progress note dated 07/02/2021. This is a 61-year-old male again seen in room 384. The patient's resting comfortably. In fact, he is sitting at the bedside, ready to eat his lunch. The patient's on 3 L nasal cannula. He's not receiving any IV fluids. He denies any shortness of breath, chest tightness, cough, wheezing, or phlegm production. Today's labs include a sodium 133, potassium 3.7, chlorides 84, CO2 46, anion gap 3, BUN 81, and creatinine 1.10. Calcium is 8.7. Chest x-ray from June 30 shows improved aeration at the left lung base, with continued consolidation and/or atelectasis at the right lung base. Objective - Vital Signs Vital signs: Vital Signs Temp 98.6 F 07/02/21 08:35 Pulse 114 H 07/02/21 11:15 Resp 16 07/02/21 08:35 BP 114/51 07/02/21 08:35 Pulse Ox 97 07/02/21 08:35 Intake & Output 07/01/21 07/02/21 07/02/21 18:59 06:59 18:59 Intake Total 1500 480 Output Total 4000 2525 Balance -2500 -2525 480 Intake: Oral 1500 480 Output: Urine 4000 2525 Other: Voiding Method Indwelling Catheter Indwelling Catheter Indwelling Catheter # Bowel Movements 1 - Exam No acute distress, oriented 3. Currently on 3 L nasal cannula. Saturations are in the mid 90s. HEENT examination is grossly unremarkable. Neck supple. Full range of motion. No adenopathy thyromegaly or neck vein distention. Cardiovascular examination reveals regular rhythm rate. S1-S2 normal. No S3 or S4. No discernible murmur noted. Heart rate 114 bpm. Lungs reveal scattered bilateral rhonchi. Breath sounds are equal bilaterally but diminished through out. No wheezes or crackles. Abdomen soft bowel sounds are heard. No masses or tenderness. Extremities are intact. No cyanosis clubbing or edema. Skin is without rash or lesion. Neurologic examination is brief but nonfocal. - Labs CBC & Chem 7: 06/30/21 07:36 07/02/21 10:39 Labs: Abnormal Lab Results - Last 24 Hours (Table) 07/01/21 07/01/21 07/02/21 Range/Units 16:48 20:10 06:02 Sodium (137-145) mmol/L Chloride (98-107) mmol/L Carbon Dioxide (22-30) mmol/L BUN (9-20) mg/dL Glucose (74-99) mg/dL POC Glucose (mg/dL) 139 H 272 H 140 H (75-99) mg/dL 07/02/21 07/02/21 Range/Units 10:39 11:50 Sodium 133 L (137-145) mmol/L Chloride 84 L (98-107) mmol/L Carbon Dioxide 46 H* (22-30) mmol/L BUN 81 H (9-20) mg/dL Glucose 124 H (74-99) mg/dL POC Glucose (mg/dL) 133 H (75-99) mg/dL Assessment and Plan Assessment: Mental status changes, which may relate to a positive drug screen for methamphetamines and marijuana. In addition, the patient was hypoxemic and hyponatremic. Mental status changes have dramatically improved. Acute hypoxemic respiratory failure secondary to CHF and COPD, much improved. Pneumonia, bilateral lower lobes, clinically improved. Hyponatremic, likely secondary to daily alcohol consumption. Acute renal failure, improved. Thrombocytopenia, likely secondary to chronic alcohol use. Daily heavy alcohol use. Marijuana use. Chronic tobacco dependence. Plan: Plan dated 07/02/2021. The patient remains on prednisone 40 mg a day, Zosyn, updrafts, with albuterol sulfate and ipratropium bromide, as well as a nicotine patch. We will continue to follow make recommendations where appropriate. Prognosis is guarded. Addit ional recommendations and suggestions are forthcoming. The patient is counseled about the importance of smoking cessation. Time with Patient: Less than 30
--- NOTE | 2021-07-02 15:15 | P.PN ---
Progress Note - Text Progress Note Date: 07/02/21 Interval history: Patient was seen today for psychiatric follow-up regarding patient's depression and alcohol use. Patient has a flat affect and appeared to be fairly withdrawn. He states that he is feeling mildly depressed today. He claims that he does deal with anxiety from time to time. He claims that he is willing to try Zoloft today as he has had good results with SSRIs in the past. He states that he believes that his drinking is a problem however claims that "I know everything about rehab" and believes that it will not help him. He states that he does not want to try medications for alcohol cravings at this time. He claims that his sleep has been fair however claims that he does sleep during the day at times. He states that he has a improving appetite. At this time patient denies any suicidal or homicidal ideations intent or plan. Denies any Auditory or visual hallucinations. Patient denies any side effects from the medications and has been compliant with meds. He denies any access to guns or weapons at home. Mental status exam: General Appearance: Patient appears to be stated age is alert, directable, and attempts to be cooperative. Behavior: No agitated behavior. Patient is calm and directable and concrete. Speech: Patient's speech is fluent and nonpressured. [place]. Mood/Affect: Mood is depressed however is improving mildly, affect is congruent and constricted. Suicidality/Homicidality: Patient denies having any suicidal or homicidal ideation intent or plan. Perceptions: Patient denies any auditory or visual hallucinations. Though content/process: There is no evidence of any delusional thought content and thought process is linear and goal-directed. [place]. Poverty of content. Memory and concentration: AOX3, grossly intact for the purposes of this session Judgment and insight: improving mildly Assessment/Plan: Continue with current diagnosis. Patient continues to NOT meet criteria for inpatient psychiatric admission. Continue monitoring for alcohol withdrawal with Ativan when necessary and CIWA protocol. Added Zoloft 50 mg daily for mood/anxiety. Added melatonin 5 mg daily at bedtime for sleep. Psychiatry will continue to follow along and likely sign off patient tomorrow. Patient is refusing rehab or alcohol cravings medications. Prior to discharge patient should be given mental health referral for follow-up.
[2021-07-02 16:47] LABS: Glucose,Whole Blood 164 mg/dL (75-99)
[2021-07-02] MEDS: SERTRALINE 50 MG TAB PO SCH (18:02)
[2021-07-02 20:08] LABS: Glucose,Whole Blood 155 mg/dL (75-99)
[2021-07-02] MEDS: APIXABAN 5 MG TAB PO SCH (20:10)
[2021-07-02] MEDS: ACETAMINOPHEN TAB 325 MG TAB PO PRN (20:10)
[2021-07-02] MEDS ORDERED: MELATONIN 5 MG TABLET PO SCH (21:00)
[2021-07-02] MEDS: INSULIN DETEMIR (LEVEMIR) 100 UNIT/ML SYR SQ SCH (22:17)
[2021-07-03] MEDS: PIPERACILLIN-TAZOBACTAM 3.375 GM in SODIUM CHLORIDE 0.9% 100 ML IVPB SCH ×3 (00:35→15:14)
[2021-07-03 07:09] LABS: Glucose,Whole Blood 117 mg/dL (75-99)
[2021-07-03] MEDS: PANTOPRAZOLE 40 MG TABLET PO SCH (07:49)
[2021-07-03] MEDS: IPRATROPIUM-ALBUTEROL 3 ML NEB INHALATION SCH ×4 (07:54→19:09)
[2021-07-03] MEDS: INSULIN ASPART (NovoLOG) 100 UNIT/ML VIAL SQ SCH ×4 (08:28→21:30)
[2021-07-03] MEDS: METOPROLOL TARTRATE 12.5 MG TAB PO SCH ×3 (08:42→21:27)
[2021-07-03] MEDS: DILTIAZEM CD 120 MG CAP.ER.24H PO SCH ×2 (08:42→21:27)
[2021-07-03] MEDS: FUROSEMIDE 40 MG TAB PO SCH (08:42)
[2021-07-03] MEDS ORDERED: SODIUM CHLORIDE 0.9% 500 ML 250 ML IV ONE (08:43)
[2021-07-03] MEDS: APIXABAN 5 MG TAB PO SCH ×2 (09:05→21:30)
[2021-07-03] MEDS: predniSONE 20 MG TAB PO SCH (09:06)
[2021-07-03] MEDS: SERTRALINE 50 MG TAB PO SCH (09:06)
[2021-07-03] MEDS: LACTULOSE 20 GM/30 ML CUP PO SCH ×2 (09:06→21:30)
[2021-07-03] MEDS: NICOTINE 21MG/24HR PATCH TRANSDERM SCH (09:06)
[2021-07-03] MEDS: ACETAMINOPHEN TAB 325 MG TAB PO PRN ×2 (09:09→15:14)
[2021-07-03] MEDS ORDERED: MIDODRINE 5 MG TAB PO SCH (10:15)
[2021-07-03] MEDS: HYDROCORTISONE SUCCINATE 100 MG/2 ML VIAL IV SCH ×2 (10:50→15:15)
[2021-07-03 11:09] LABS: African American GFR (CKD) 81 (>60 ml/min/1.73 sqM); Anion Gap 7 mmol/L; Blood Urea Nitrogen 100 mg/dL (9-20); Calcium 8.8 mg/dL (8.4-10.2); Carbon Dioxide 38 mmol/L (22-30); Chloride 87 mmol/L (98-107); Glucose 106 mg/dL (74-99); Non-African American GFR(CKD) 70 (>60 ml/min/1.73 sqM); Potassium 4.1 mmol/L (3.5-5.1); Sodium 132 mmol/L (137-145)
[2021-07-03 11:24] LABS: Glucose,Whole Blood 131 mg/dL (75-99)
--- NOTE | 2021-07-03 12:25 | P.PN ---
Subjective Progress Note Date: 07/03/21 Principal diagnosis: Atrial fibrillation. On 06/29/2021 patient seen in follow-up. Patient is currently on 4 L of oxygen the pulse ox of 97%, he sleepy, still confused, but not agitated, lung sounds are diminished, without rhonchi or wheezing, he is off BiPAP support, he is ask ing for water, he feels thirsty. Vitals is having stable overnight, afebrile, his chest x-ray shows cardiomegaly with right greater than left bilateral lower lung acute infiltrates and/or atelectasis with right-sided volume loss without significant change from one day earlier. His labs have been reviewed, sodium is 128, potassium is 4.0, chloride is 85, CO2 38, BUN is 63, creatinine is 1.32. Sodium is improved, patient has been receiving diuretics, and this is being managed by nephrology on the case, patient is currently on Lasix 40 mg every 12 hours. He remains on IV steroids with Solu-Medrol 60 mg every 6 hours, he is on Zosyn for possibility of aspiration related pneumonia. The patient is seen today 06/30/2021 in follow-up on the selective care unit. He is currently resting comfortably in bed. Awake and alert in no acute distress. He is maintaining O2 saturations in the 90s on 3 L high flow nasal cannula. He's been afebrile. Hemodynamically stable. Chest x-ray reveals i mproved aeration in the left lung base. Continued extensive consolidation or atelectasis at the right lower lobe. White count 4.9. Hemoglobin 9.7. Platelet count 129,000. Lymphocytes 0.2. Sodium 132. Potassium 3.1. Creatinine 1.03. Glucose 149. He is continued on DuoNeb inhalations, IV diu retics, IV Solu-Medrol, antibiotics in the form of Zosyn. NicoDerm patch in place. Continued in the CIP[facility] protocol. The patient is seen today 07/01/2021 in follow-up on selective care unit. He remains awake and alert in no acute distress. Resting fairly comfortably in bed. Maintaining O2 saturations in the 90s on 3 L/m per nasal cannula. Glucose 160. He remains on Zosyn, IV Solu-Medrol, bronchodilators. NicoDerm patch is in place. Remains on IV diuretics. Currently in a -1.9 L balance. Weight is down to 106.2 kg. Progress note dated 07/02/2021. This is a 61-year-old male again seen in room 384. The patient's resting comfortably. In fact, he is sitting at the bedside, ready to eat his lunch. The patient's on 3 L nasal cannula. He's not receiving any IV fluids. He denies any shortness of breath, chest tightness, cough, wheezing, or phlegm production. Today's labs include a sodium 133, potassium 3.7, chlorides 84, CO2 46, anion gap 3, BUN 81, and creatinine 1.10. Calcium is 8.7. Chest x-ray from June 30 shows improved aeration at the left lung base, with continued consolidation and/or atelectasis at the right lung base. Progress note dated 07/03/2021. 61-year-old male, seen in room 516. Currently, the patient's resting comfortably. He's currently on 3 L nasal cannula. Not receiving any IV fluids. He denies any shortness of breath difficulty breathing cough, wheezing, chest pain or chest discomfort. Laboratory data includes a sodium 132, potassium 4.1, chloride 87, CO2 38, anion gap 7, BUN 100, and creatinine 1.13. No recent chest x-ray to report. Objective - Vital Signs Vital signs: Vital Signs Temp 98.1 F 07/03/21 07:52 Pulse 80 07/03/21 11:59 Resp 17 07/03/21 09:24 BP 94/61 07/03/21 11:49 Pulse Ox 100 07/03/21 11:49 Intake & Output 07/02/21 07/03/21 07/03/21 18:59 06:59 18:59 Intake Total 1440 340 Output Total 750 1600 Balance 690 340 -1600 Weight 106.2 kg 101.5 kg Intake: Intake, IV Titration 100 Amount Piperacillin-Tazobactam 3 100 .375 gm In Sodium Chloride 0.9% 100 ml @ 25 mls/hr IVPB Q8HR [facility] Rx# :[id number] Oral 1440 240 Output: Urine 750 1600 Other: Voiding Method Indwelling Catheter Indwelling Catheter Indwelling Catheter - Exam No acute distress, oriented 3. Currently on 3 L nasal cannula. Saturations are 95%. HEENT examination is grossly unremarkable. Neck supple. Full range of motion. No adenopathy thyromegaly or neck vein distention. Cardiovascular examination reveals regular rhythm rate. S1-S2 normal. No S3 or S4. No discernible murmur noted. Heart rate 80 bpm. Lungs reveal scattered bilateral rhonchi. Breath sounds are equal bilaterally but diminished through out. No wheezes or crackles. Abdomen soft bowel sounds are heard. No masses or tenderness. Extremities are intact. No cyanosis clubbing or edema. Skin is without rash or lesion. Neurologic examination is brief but nonfocal. - Labs CBC & Chem 7: 06/30/21 07:36 07/03/21 10:25 Labs: Abnormal Lab Results - Last 24 Hours (Table) 07/02/21 07/02/21 07/03/21 Range/Units 16:46 20:07 06:55 Sodium (137-145) mmol/L Chloride (98-107) mmol/L Carbon Dioxide (22-30) mmol/L BUN (9-20) mg/dL Glucose (74-99) mg/dL POC Glucose (mg/dL) 164 H 155 H 117 H (75-99) mg/dL 07/03/21 07/03/21 Range/Units 10:25 11:19 Sodium 132 L (137-145) mmol/L Chloride 87 L (98-107) mmol/L Carbon Dioxide 38 H (22-30) mmol/L BUN 100 H (9-20) mg/dL Glucose 106 H (74-99) mg/dL POC Glucose (mg/dL) 131 H (75-99) mg/dL Assessment and Plan Assessment: Mental status changes, which may relate to a positive drug screen for methamphetamines and marijuana. In addition, the patient was hypoxemic and hyponatremic. Mental status changes have dramatically improved. Acute hypoxemic respiratory failure secondary to CHF and COPD, much improved. Pneumonia, bilateral lower lobes, clinically improved. Hyponatremic, likely secondary to daily alcohol consumption. Acute renal failure, improved. Thrombocytopenia, likely secondary to chronic alcohol use. Daily heavy alcohol use. Marijuana use. Chronic tobacco dependence. Plan: Plan dated 07/02/2021. The patient remains on prednisone 40 mg a day, Zosyn, updrafts, with albuterol sulfate and ipratropium bromide, as well as a nicotine patch. We will continue to follow make recommendations where appropriate. Prognosis is guarded. Additional recommendations and suggestions are forthcoming. The patient is counseled about the importance of smoking cessation. Plan dated 07/03/2021. Currently, the patient's doing well. Saturations are 95% on 3 L she is not manifesting any signs or symptoms of respiratory difficulty. There was no audible wheezing, use of accessory muscles, or conversational dyspnea. We will continue to follow make recommendations were appropriate. Prognosis is guarded. The patient remains on updrafts. He is also on a nicotine patch. The patient remains on Zosyn. Time with Patient: Less than 30
--- NOTE | 2021-07-03 13:23 | P.PN ---
Subjective Progress Note Date: 07/03/21 61 year old male with history of hypertension, atrial fibrillation, atrial flutter, alcohol abuse, COPD who has been seen multiple times in the ER for alcohol intoxication and suicidal ideation in the past was brought in by EMS as his roommate found him unresponsive. Patient drinks daily half a gallon. Patient evaluated in the ER. He would wake up intermittently say a few words and go back to sleep. Patient appears trunk, sees he wants to and appears that he is seeing things in the room as he is pointing at lopes. Patient is unable to maintain eye contact as he drifts into sleep. She received breathing treatment on his way to the hospital and also endorses before he came to the hospital. He received another nebulizing treatment before I evaluated him. Patient continues to wheeze significantly on evaluation. He denies any cough or shortness of breath or chest pain. Patient was afebrile tachycardic at 106, respiratory rate of 15 blood pressure 107/78 oxygen saturation 89% on room air improved to 97% on 2 L. EKG was obtained showed A. fib with rapid response of response at 120 CT of the brain was negative for any acute abnormality does have acute mastoiditis. Chest x-ray suggestive of mild congestive heart failure. Labs are reviewed patient has a WBC of 4.2 hemoglobin 12.7 sodium 118 chloride 82 bicarb 22 BUN 37 creatinine is 0.03. Ammonia level is a 25 alcohol level 218Patient is alcohol intoxication with suicidal ideation. Sitter at bedside ordered. We will discontinue IV fluids as patient appears volume overloaded. Solu-Medrol was initiated at 60 IV every 6 with DuoNeb's with pulmonary consult. Sodium levels with the acetaminophen urine osmolality were ordered. Nephrology consulted for management of sodium. 06/27 patient evaluated bedside is alert and answer questions appropriately. Sitter at bedside. Patient is currently 84% on 3 L of oxygen. Repeat chest x- ray suggestive of right lower lid and a troponin airspace opacity along with le ft lower airspace opacity with developing infectious process with COPD changes 06/28 patient evaluated at bedside lying comfortably in bed. Patient denies any chest pain or shortness of breath. Vitals are stable patient continues from and hyponatremia with a repeat sodium 122 potassium 5.5 chloride 88 BUN 72 creatinine 1.56. Serum osmolarity continues to remain high 305 continue Lasix 40 IV twice a day. Solu-Medrol reduced to every 8 8 hours 60 mg. Nephrology recommendation appreciated 06/29: Repeat chest x-ray reveals cardiomegaly with right greater than left bilateral lower lung acute infiltrates and/or atelectasis with right-sided volume loss remain present. No significant change from yesterday. Patient is followed closely by nephrology with plan to continue IV Lasix encourage oral protein intake and repeat labs tomorrow. Patient has seen by psychiatry with expectation of some cognitive clearing so they can expand the psychiatric assessment. Patient is still quite confused unable to answer questions and follow commands. He has been afebrile, heart rate 88, blood pressure 106/59, pulse ox 97% on 4 L nasal cannula. Sodium 128, potassium 4.0, chloride 85, CO2 38, BUN 63 creatinine 1.32. Blood sugars are running between 100 4891. TSH 1.250. Urinalysis negative for infection. Sodium 38. 06/30: The patient is awake this morning. He knows where he is at. He states he normally drinks a fifth of liquor per day. He is able to verbalize that he would like to have it inhaler when he leaves the hospital. Patient is followed by pulmonary medicine Repeat chest x-ray reveals improved aeration at the left base. Continued extensive consolidation or atelectasis of the right lower lobe. Patient has been afebrile, heart rate 79, blood pressure 126/76, pulse ox 92% on 3 L. 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 Repeat blood work reveals hemoglobin 9.7, platelet count 129. Sodium 132, potassium 3.1, chloride 89, CO2 39, BUN 60 and creatinine 1.03. Blood sugars are running between 172 and 222. Patient is having good urine output. 07/01: Patient's mental status is improving. He is able to answer questions appropriately. Patient has been afebrile, heart rate in the 80s to 100s, blood pressure 118/60, pulse ox 90% on 3 L nasal cannula. Capillary blood glucose running between 160 and 358. Levemir 10 units at bedtime added. Zaragoza catheter remains in place. Sap Architect recommended continuing IV Lasix encourage oral protein intake.. 07/02: Patient is verbalizing that he still not feeling well enough to go home today. He is awake alert and oriented 3. His mental status is significantly improved. His plan is to return to his current living situation and social work has been working with him on this. Patient apparently has an oxygen concentrator but does not use it. We will be making arrangements for home oxygen therapy. He is pulse oxing 97% on 3 L. Heart rate is running in the 100 and teens to 121. Blood pressure 114/51. He has been afebrile. Low-dose Lopressor will be added to Cardizem for rate control for atrial fibrillation. Patient has had no signs of bleeding, eliquis will be started. 07/03: Patient is having drop in blood pressure with lightheadedness. This morning blood pressure 1 was 78/42. We've ordered a fluid bolus of 250 ML's due to history of heart failure, hold Cardizem, Lasix, metoprolol. Noted the patient had been taken off Solu-Medrol on 07/01 by pulmonary medicine. Cortisone level be checked and patient will be started on Solu-Cortef 100 mg IV every 8 hours. Repeat blood work reveals sodium 132, potassium 4.1, chloride 87, CO2 38, BUN 100 and creatinine 1.13. Blood sugars are running between 117 and 155. No new plan from pulmonary medicine. Patient has been seen by psychiatry with recommendations to monitor for alcohol withdrawal with Ativan when necessary on [facility] protocol. Zoloft 50 mg daily was added and melatonin 5 mg at bedtime. ROS Constitutional: Denies chills, Denies fever, reports dizziness, reports lightheadedness, endorses lethargy Denies poor appetite, endorses weakness, Denies weight loss Eyes: denies decreased vision, denies diplopia, denies discharge Ears: deny: decreased hearing Ears, nose, mouth and throat: Denies dental pain, Denies headache, Denies nasal discharge, Denies nose pain Cardiovascular: Denies chest pain, Denies decreased exercise tolerance, Denies edema, Denies high blood pressure, Denies irregular heart beat, Denies palpita tions, Denies paroxysmal nocturnal dyspnea, Denies rapid heart beat, Denies shortness of breath Respiratory: Endorses dyspnea, Denies home oxygen, Denies wheezing Gastrointestinal: Denies abdominal pain, Denies change in bowel habits, Denies coffee ground emesis, Denies early satiety, Denies excessive gas, Denies heartburn, Denies hematemesis, Denies hematochezia, Denies loss of appetite, Denies nausea, Denies vomiting Genitourinary: Denies dysuria, Denies flank pain, Denies kidney stones, Denies menorrhagia, Denies urgency, Denies urinary frequency Musculoskeletal: Denies gait dysfunction, Denies limitation of motion, Denies morning stiffness, Denies muscle cramps Integumentary: Denies rash, Denies wounds, Denies brittle nails, Denies change in hair/nails, Denies darkening of skin Neurological: Denies balance difficulties, Denies change in speech, Denies double vision, noted mental status change, noted gait dysfunction, Denies loss of vision, Denies motor disturbance, Denies numbness, Denies paralysis, Denies paresthesias, Denies seizures Psychiatric: Denies anxiety, Denies depression Endocrine: Denies excessive sweating, Denies excessive thirst, Denies high blood sugars, Denies palpitations Hematologic/Lymphatic: Denies easy bruising, Denies lymphadenopathy Physical exam - Constitutional General appearance: Awake, 61-year-old male, no acute distress noted, currently on O2 at 3 L n/c - EENT Eyes: anicteric sclerae, PERRLA, normal appearance conjunctival injection ENT: hearing grossly normal - Neck Neck: no lymphadenopathy, normal ROM, no other, no rigidity, no stridor, no thyromegaly - Respiratory Respiratory: Decreased air entry with bibasilar Crackles improved wheezing - Cardiovascular Rhythm: Irregularly irregular tachycardic Heart sounds: normal: S1, S2 Abnormal Heart Sounds: no systolic murmur, no diastolic murmur, no rub, no S3 Gallop, no S4 Gallop, no click, no other - Gastrointestinal General gastrointestinal: normal bowel sounds, soft nontender but distended - Integumentary Integumentary: T, peripheral pulses 2+ with less than 2 second capillary refill, purplish discoloration of toes - Neurologic patient is cooperative, does move all extremities - Musculoskeletal Musculoskeletal: Gait could not be assessed strength equal bilaterally - Psychiatric PsychiatriC Alert oriented 3 Assessment and plan #1 acute metabolic encephalopathy secondary to alcohol intoxication and hyponatremia and elevated ammonia levels. Fall precautions. #2 acute alcohol intoxication with alcohol dependence with history of alcohol withdrawal including DTs alcohol withdrawal protocol initiated. Vitamin supplemented. CIWA protocol. #3 acute suicidal thoughts. Psychiatry consult appreciated and patient started on Zoloft and melatonin. #4 thrombocytopenia secondary to alcohol abuse and liver dysfunction continue to monitor hold anticoagulants #5 hyperosmolar hyponatremia secondary to alcohol nephrology consult appreciated. Continue po Lasix 40 mg every 12 hours. #6 acute hypoxic respiratory failure with evidence of aspiration pneumonia, acute diastolic heart failure. Continue Lasix 40 mg oral daily, I&O monitoring daily weights. Zosyn, prednisone to start tomorrow #7 acute COPD exacerbation. Continue prednisone 40 mg oral daily, DuoNeb's as needed for shortness of breath. Sputum culture ordered. Pulmonary consult appreciated #8 microscopic bleed per rectum positive fecal occult hemoglobin stable continue monitor CBC may be related to gastritis secondary to alcohol abuse, Protonix 40 once daily #9 polysubstance abuse urine drug screen positive for meth and THC. Continue to monitor vitals. EKG negative for any ST or T-wave changes #10 acute kidney injury secondary to AtN. #11 acute A. fib with RVR, chronic persistent. Continue Cardizem CD 180 mg daily. Metoprolol tartrate 25 mg twice daily added, eliquis 5 mg twice daily. #10 hypotension. Patient started on stress dose of Solu-Cortef. #11code status full code #12 DVT eliquis DISCHARG PLAN Home next week Impression and plan of care have been directed as dictated by the signing physician. Leticia Sweet nurse practitioner acting as scribe for signing phys ician. Objective - Vital Signs Vital signs: Vital Signs Temp 98.1 F 07/03/21 07:52 Pulse 60 07/03/21 09:24 Resp 17 07/03/21 09:24 BP 85/49 07/03/21 10:02 Pulse Ox 92 L 07/03/21 09:23 Intake & Output 07/02/21 07/03/21 07/03/21 18:59 06:59 18:59 Intake Total 1440 340 Output Total 750 Balance 690 340 Weight 106.2 kg Intake: Intake, IV Titration 100 Amount Piperacillin-Tazobactam 3 100 .375 gm In Sodium Chloride 0.9% 100 ml @ 25 mls/hr IVPB Q8HR [facility] Rx# :[id number] Oral 1440 240 Output: Urine 750 Other: Voiding Method Indwelling Catheter Indwelling Catheter Indwelling Catheter - Labs CBC & Chem 7: 06/30/21 07:36 07/03/21 10:25 Labs: Abnormal Lab Results - Last 24 Hours (Table) 07/02/21 07/02/21 07/02/21 Range/Units 10:39 11:50 16:46 Sodium 133 L (137-145) mmol/L Chloride 84 L (98-107) mmol/L Carbon Dioxide 46 H* (22-30) mmol/L BUN 81 H (9-20) mg/dL Glucose 124 H (74-99) mg/dL POC Glucose (mg/dL) 133 H 164 H (75-99) mg/dL 07/02/21 07/03/21 Range/Units 20:07 06:55 Sodium (137-145) mmol/L Chloride (98-107) mmol/L Carbon Dioxide (22-30) mmol/L BUN (9-20) mg/dL Glucose (74-99) mg/dL POC Glucose (mg/dL) 155 H 117 H (75-99) mg/dL
[2021-07-03] MEDS ORDERED: ONDANSETRON 4 MG TAB PO PRN (14:31)
--- NOTE | 2021-07-03 14:35 | P.PN ---
Progress Note - Text Progress Note Date: 07/03/21 Interval history: Patient was seen today for psychiatric follow-up regarding patient's depression and alcohol use. Patient continues to be fairly constricted during the interview. Patient starts claims that she was laughing and joking earlier and has been communicating more. Patient was watching television when proposal manager writer approached him to be interviewed. Patient claims that he still feels mildly depressed today however claims that it is mainly due to feeling dizziness after the Zoloft that was taken yesterday and also some nausea. Ambulatory Technologist spoke with patient about the side effects of SSRIs and the importance of compliance, patient verbally understood and agreed. He states that his anxiety's been better. He is requesting to have a different sleeping medication and was okay to try Remeron tonight. He also requested Zofran. He states that he had a hard time sleeping last night due to people "walking in and out of my room". He states that he has a improving appetite. At this time patient denies any suicidal or homicidal ideations intent or plan. Denies any Auditory or visual h allucinations. Patient denies any side effects from the medications and has been compliant with meds. He denies any access to guns or weapons at home. Mental status exam: General Appearance: Patient appears to be stated age is alert, directable, and attempts to be cooperative. Behavior: No agitated behavior. Patient is calm and directable and concrete. Speech: Patient's speech is fluent and nonpressured. [place]. Mood/Affect: Mood is depressed however is improving mildly, affect is congruent and constricted. Suicidality/Homicidality: Patient denies having any suicidal or homicidal idea tion intent or plan. Perceptions: Patient denies any auditory or visual hallucinations. Though content/process: There is no evidence of any delusional thought content and thought process is linear. Buckner. Poverty of content, improving mildly. Memory and concentration: AOX3, grossly intact for the purposes of this session Judgment and insight: improving mildly Assessment/Plan: Continue with current diagnosis. Patient continues to NOT meet criteria for inpatient psychiatric admission. Continue monitoring for alcohol withdrawal with Ativan when necessary and CIWA protocol. Zoloft 50 mg daily for mood/anxiety. His continue melatonin and replaced with Remeron 15 mg daily at bedtime for insomnia/mood/appetite. Psychiatry will sign off patient today. Patient is refusing rehab or alcohol cravings medications. Prior to discharge patient should be given mental health referral for follow-up. Please contact with any questions or concenrs.
[2021-07-03] MEDS: ONDANSETRON 4 MG/2 ML VIAL IVP PRN (15:34)
[2021-07-03 17:30] LABS: Glucose,Whole Blood 202 mg/dL (75-99)
--- NOTE | 2021-07-03 17:57 | P.PN ---
Subjective Principal diagnosis: Patient is seen for follow-up for acute kidney injury and hyponatremia. He has had good urine output. He has a Zaragoza catheter. Renal function has improved with creatinine down to 1.1mg/dL. Sodium has improved as well it is up to 132. Patient was maintained on IV Lasix. The Lasix was discontinued yesterday and this morning it appears that patient's blood pressure had dropped into the 80s systolic. He did he did receive 250 mL fluid bolus. No complaints of chest pains or shortness of breath. Objective - Vital Signs Vital signs: Vital Signs Temp 98.1 F 07/03/21 07:52 Pulse 80 07/03/21 11:59 Resp 17 07/03/21 09:24 BP 94/61 07/03/21 11:49 Pulse Ox 100 07/03/21 11:49 Intake & Output 07/02/21 07/03/21 07/03/21 18:59 06:59 18:59 Intake Total 1440 340 Output Total 750 2300 Balance 690 340 -2300 Weight 106.2 kg 101.5 kg Intake: Intake, IV Titration 100 Amount Piperacillin-Tazobactam 3 100 .375 gm In Sodium Chloride 0.9% 100 ml @ 25 mls/hr IVPB Q8HR [facility] Rx# :[id number] Oral 1440 240 Output: Urine 750 2300 Other: Voiding Method Indwelling Catheter Indwelling Catheter Indwelling Catheter # Bowel Movements 1 - Exam On examination patient is comfortable awake is not in any acute distress. Confused. Mildly short of breath. Examination of the heart S1 and S2 examination lungs decreased breath sounds at the bases Examination lower extremities shows no significant edema bilaterally SENIOR COPYWRITER exam shows patient is moving all 4 extremities - Labs CBC & Chem 7: 06/30/21 07:36 07/03/21 10:25 Labs: Abnormal Lab Results - Last 24 Hours (Table) 07/02/21 07/03/21 07/03/21 Range/Units 20:07 06:55 10:25 Sodium 132 L (137-145) mmol/L Chloride 87 L (98-107) mmol/L Carbon Dioxide 38 H (22-30) mmol/L BUN 100 H (9-20) mg/dL Glucose 106 H (74-99) mg/dL POC Glucose (mg/dL) 155 H 117 H (75-99) mg/dL 07/03/21 07/03/21 Range/Units 11:19 17:25 Sodium (137-145) mmol/L Chloride (98-107) mmol/L Carbon Dioxide (22-30) mmol/L BUN (9-20) mg/dL Glucose (74-99) mg/dL POC Glucose (mg/dL) 131 H 202 H (75-99) mg/dL Assessment and Plan Assessment: 1. Hyponatremia, hyperosmolar associated with high ETOH levels as well as hypervolemic hyponatremia. Status post diuresis 2. Acute kidney injury secondary to hemodynamic ATN with low blood pressures. Baseline creatinine around 1.0., Currently improved 3. Volume overload currently status post IV Lasix. 4. ETOH abuse 5. Suicidal ideation with history of depression, evaluated by psych. 6. Metabolic alkalosis secondary to diuresis Plan: 1. Hold Lasix for now 2. Repeat labs in a.m. repeat. 3. Resume diuretics in the next 24-48 hours depending on the volume status.
[2021-07-03 20:49] LABS: Glucose,Whole Blood 152 mg/dL (75-99)
[2021-07-03] MEDS: INSULIN DETEMIR (LEVEMIR) 100 UNIT/ML SYR SQ SCH (21:29)
[2021-07-03] MEDS: MIRTAZAPINE 15 MG TAB PO SCH (21:30)
[2021-07-04] MEDS: HYDROCORTISONE SUCCINATE 100 MG/2 ML VIAL IV SCH ×3 (00:01→15:58)
[2021-07-04] MEDS: PIPERACILLIN-TAZOBACTAM 3.375 GM in SODIUM CHLORIDE 0.9% 100 ML IVPB SCH ×2 (00:01→08:11)
[2021-07-04] MEDS: IPRATROPIUM-ALBUTEROL 3 ML NEB INHALATION SCH ×4 (07:30→19:57)
[2021-07-04 07:51] LABS: Glucose,Whole Blood 145 mg/dL (75-99)
[2021-07-04] MEDS: PANTOPRAZOLE 40 MG TABLET PO SCH (08:12)
[2021-07-04] MEDS: APIXABAN 5 MG TAB PO SCH (08:12)
[2021-07-04] MEDS: SERTRALINE 50 MG TAB PO SCH (08:12)
[2021-07-04] MEDS: NICOTINE 21MG/24HR PATCH TRANSDERM SCH (08:12)
[2021-07-04] MEDS: LACTULOSE 20 GM/30 ML CUP PO SCH (08:12)
[2021-07-04] MEDS: METOPROLOL TARTRATE 12.5 MG TAB PO SCH ×2 (08:12→23:35)
[2021-07-04] MEDS: DILTIAZEM CD 120 MG CAP.ER.24H PO SCH (08:12)
[2021-07-04] MEDS: FUROSEMIDE 40 MG TAB PO SCH (08:12)
[2021-07-04] MEDS: INSULIN ASPART (NovoLOG) 100 UNIT/ML VIAL SQ SCH ×4 (08:12→20:43)
[2021-07-04] MEDS: ONDANSETRON 4 MG/2 ML VIAL IVP PRN (09:07)
--- NOTE | 2021-07-04 10:31 | P.PN ---
Subjective Patient is seen in follow-up for hyponatremia. Sodium level stable at 132 yesterday. Resting in bed. On oral Lasix. Has a Zaragoza catheter. Nonoliguric. Vital signs are stable. General: The patient appeared well nourished and normally developed. HEENT: Head exam is unremarkable. LUNGS: Breath sounds decreased. HEART: Rate and Rhythm are regular. ABDOMEN: Soft, no distention. EXTREMITITES: Trace edema. Objective - Vital Signs Vital signs: Vital Signs Temp 98 F 07/04/21 04:15 Pulse 106 H 07/04/21 08:09 Resp 20 07/04/21 04:15 BP 103/65 07/04/21 08:09 Pulse Ox 97 07/04/21 04:15 Intake & Output 07/03/21 07/04/21 07/04/21 18:59 06:59 18:59 Intake Total 250 400 60 Output Total 2600 1300 Balance -2350 -900 60 Weight 101.5 kg Intake: Intake, IV Titration 250 Amount Sodium Chloride 0.9% 500 250 ml 250 ml @ 999 mls/hr IV .Q16M ONE Rx#:[id number] Oral 400 60 Output: Urine 2600 1300 Other: Voiding Method Indwelling Catheter # Bowel Movements 1 - Labs CBC & Chem 7: 06/30/21 07:36 07/03/21 10:25 Labs: Abnormal Lab Results - Last 24 Hours (Table) 07/03/21 07/03/21 07/03/21 Range/Units 10:25 11:19 17:25 Sodium 132 L (137-145) mmol/L Chloride 87 L (98-107) mmol/L Carbon Dioxide 38 H (22-30) mmol/L BUN 100 H (9-20) mg/dL Glucose 106 H (74-99) mg/dL POC Glucose (mg/dL) 131 H 202 H (75-99) mg/dL 07/03/21 07/04/21 Range/Units 20:25 07:46 Sodium (137-145) mmol/L Chloride (98-107) mmol/L Carbon Dioxide (22-30) mmol/L BUN (9-20) mg/dL Glucose (74-99) mg/dL POC Glucose (mg/dL) 152 H 145 H (75-99) mg/dL Assessment and Plan Plan: Assessment: 1. Hypervolemic hyponatremia improved to diuresis. Sodium level stable at 132 yesterday. 2. Volume overload. Improving diuresis. 3. Alcohol abuse. 4. Acute kidney injury secondary to hemodynamic ATN. Improved. Creatinine 1.1 today. 5. Metabolic alkalosis from diuresis. Plan: Maintain oral Lasix. Maintain 1500 mL fluid restriction. Encourage oral intake. Repeat labs in the morning. DC Zaragoza catheter. Monitor for retention.
--- NOTE | 2021-07-04 11:08 | P.PN ---
Subjective Progress Note Date: 07/04/21 Principal diagnosis: AMS Patient continued to be at baseline mental status where he is alert and oriented 2-3 responding well to frequent reorientation and able to follow comma nds. No major events reported by nursing staff who was at the bedside right now Objective - Vital Signs Vital signs: Vital Signs Temp 98 F 07/04/21 04:15 Pulse 106 H 07/04/21 08:09 Resp 20 07/04/21 04:15 BP 103/65 07/04/21 08:09 Pulse Ox 97 07/04/21 04:15 Intake & Output 07/03/21 07/04/21 07/04/21 18:59 06:59 18:59 Intake Total 250 400 60 Output Total 2600 1300 Balance -2350 -900 60 Weight 101.5 kg Intake: Intake, IV Titration 250 Amount Sodium Chloride 0.9% 500 250 ml 250 ml @ 999 mls/hr IV .Q16M ONE Rx#:[id number] Oral 400 60 Output: Urine 2600 1300 Other: Voiding Method Indwelling Catheter # Bowel Movements 1 - Exam Gen.: in stated age, no acute distress Heart: Normal S1-S2 Lungs: Clear to auscultation bilaterally Abdomen: Soft, no tenderness, positive bowel sounds in all 4 quadrant no guarding or rebound Skin: No new rash Psych: Alert and oriented 3 Neuro: No focal deficit - Labs CBC & Chem 7: 06/30/21 07:36 07/03/21 10:25 Labs: Abnormal Lab Results - Last 24 Hours (Table) 07/03/21 07/03/21 07/03/21 Range/Units 10:25 11:19 17:25 Sodium 132 L (137-145) mmol/L Chloride 87 L (98-107) mmol/L Carbon Dioxide 38 H (22-30) mmol/L BUN 100 H (9-20) mg/dL Glucose 106 H (74-99) mg/dL POC Glucose (mg/dL) 131 H 202 H (75-99) mg/dL 07/03/21 07/04/21 Range/Units 20:25 07:46 Sodium (137-145) mmol/L Chloride (98-107) mmol/L Carbon Dioxide (22-30) mmol/L BUN (9-20) mg/dL Glucose (74-99) mg/dL POC Glucose (mg/dL) 152 H 145 H (75-99) mg/dL Assessment and Plan Assessment: 1. Acute encephalopathy, multifactorial including alcohol intoxication and metabolic component with elevated ammonia level. 2. Alcohol abuse. 3. Acute depression. 4. Thrombocytopenia likely secondary to above. 5. Recent respiratory failure with hypoxia likely related to possible aspiration pneumonia. 6. Severe debility and deconditioning. 7. COPD, seems to be improving. 8. New onset atrial fibrillation with rapid ventricular response [place] heart rate under better control. 9. Polysubstance abuse. 10. Anemia with history of GI bleed. Patient seems to be hemodynamically stable at this point with stability and mental status I would like to have physical therapy evaluated the patient consider discharging based on the recommendation patient was started on Zosyn for possible pneumonia/aspiration pneumonia and I would like to complete course of 7 days at this point. We will consider discharge to [facility] facility based on the recommendation and discuss with family current condition. We will continue with aggressive pulmonary hygiene continue with heart rate controlling agent as patient currently on Cardizem and metoprolol and we would continue with the liquids 5 mg twice daily and monitor hemoglobin and vital signs closely. Plan discussed with nursing staff at the bedside
[2021-07-04 12:39] LABS: Glucose,Whole Blood 109 mg/dL (75-99)
[2021-07-04] MEDS ORDERED: SODIUM CHLORIDE 0.9% 500 ML 500 ML IV ONE (12:45)
[2021-07-04 13:03] LABS: African American GFR (CKD) 69.6 (60.0-200.0); Anion Gap 12.2 mmol/L (10.00-18.00); BUN/Creat Ratio 70.78 Ratio (12.00-20.00); Blood Urea Nitrogen 90.6 mg/dL (9.0-27.0); Calcium 8.2 mg/dL (8.7-10.3); Carbon Dioxide 34.9 mmol/L (20.0-27.5); Potassium 4.7 mmol/L (3.5-5.5)
[2021-07-04 13:38] LABS: Anisocytosis Slight; Basophils % (A) 0 %; Eosinophils % (A) 0 %; Hypochromasia Marked; Lymphocytes # (A) 0.5 k/uL (1.0-4.8); Lymphocytes % (A) 7 %; MCH 31.8 pg (25.0-35.0); MCHC 29.7 g/dL (31.0-37.0); Macrocytosis Marked; Monocytes # (A) 0.5 k/uL (0-1.0); Monocytes % (A) 8 %; Neutrophils # (A) 5.7 k/uL (1.3-7.7); Neutrophils % (A) 83 %; Platelet Count 171 k/uL (150-450); RBC 1.36 m/uL (4.30-5.90); RDW 18.5 % (11.5-15.5); WBC 6.9 k/uL (3.8-10.6)
[2021-07-04 13:39] LABS: MCV 106.8 fL (80.0-100.0)
[2021-07-04 13:48] LABS: HCT 14.6 % (39.0-53.0); HGB 4.3 gm/dL (13.0-17.5)
[2021-07-04 14:37] LABS: Anisocytosis Slight; Hypochromasia Marked; MCH 31.2 pg (25.0-35.0); MCHC 29.7 g/dL (31.0-37.0); Macrocytosis Moderate; Mean Platelet Volume 9.3; Platelet Count 197 k/uL (150-450); RBC 1.29 m/uL (4.30-5.90); RDW 19.2 % (11.5-15.5); WBC 8.5 k/uL (3.8-10.6)
[2021-07-04 14:43] LABS: HCT 13.6 % (39.0-53.0)
[2021-07-04 15:36] LABS: Polychromasia Present
--- NOTE | 2021-07-04 16:00 | P.PN ---
Subjective Progress Note Date: 07/04/21 Principal diagnosis: Atrial fibrillation. On 06/29/2021 patient seen in follow-up. Patient is currently on 4 L of oxygen the pulse ox of 97%, he sleepy, still confused, but not agitated, lung sounds are diminished, without rhonchi or wheezing, he is off BiPAP support, he is ask ing for water, he feels thirsty. Vitals is having stable overnight, afebrile, his chest x-ray shows cardiomegaly with right greater than left bilateral lower lung acute infiltrates and/or atelectasis with right-sided volume loss without significant change from one day earlier. His labs have been reviewed, sodium is 128, potassium is 4.0, chloride is 85, CO2 38, BUN is 63, creatinine is 1.32. Sodium is improved, patient has been receiving diuretics, and this is being managed by nephrology on the case, patient is currently on Lasix 40 mg every 12 hours. He remains on IV steroids with Solu-Medrol 60 mg every 6 hours, he is on Zosyn for possibility of aspiration related pneumonia. The patient is seen today 06/30/2021 in follow-up on the selective care unit. He is currently resting comfortably in bed. Awake and alert in no acute distress. He is maintaining O2 saturations in the 90s on 3 L high flow nasal cannula. He's been afebrile. Hemodynamically stable. Chest x-ray reveals i mproved aeration in the left lung base. Continued extensive consolidation or atelectasis at the right lower lobe. White count 4.9. Hemoglobin 9.7. Platelet count 129,000. Lymphocytes 0.2. Sodium 132. Potassium 3.1. Creatinine 1.03. Glucose 149. He is continued on DuoNeb inhalations, IV diu retics, IV Solu-Medrol, antibiotics in the form of Zosyn. NicoDerm patch in place. Continued in the [facility] protocol. The patient is seen today 07/01/2021 in follow-up on selective care unit. He remains awake and alert in no acute distress. Resting fairly comfortably in bed. Maintaining O2 saturations in the 90s on 3 L/m per nasal cannula. Glucose 160. He remains on Zosyn, IV Solu-Medrol, bronchodilators. NicoDerm patch is in place. Remains on IV diuretics. Currently in a -1.9 L balance. Weight is down to 106.2 kg. Progress note dated 07/02/2021. This is a 61-year-old male again seen in room 384. The patient's resting comfortably. In fact, he is sitting at the bedside, ready to eat his lunch. The patient's on 3 L nasal cannula. He's not receiving any IV fluids. He denies any shortness of breath, chest tightness, cough, wheezing, or phlegm production. Today's labs include a sodium 133, potassium 3.7, chlorides 84, CO2 46, anion gap 3, BUN 81, and creatinine 1.10. Calcium is 8.7. Chest x-ray from June 30 shows improved aeration at the left lung base, with continued consolidation and/or atelectasis at the right lung base. Progress note dated 07/03/2021. 61-year-old male, seen in room 516. Currently, the patient's resting comfortably. He's currently on 3 L nasal cannula. Not receiving any IV fluids. He denies any shortness of breath difficulty breathing cough, wheezing, chest pain or chest discomfort. Laboratory data includes a sodium 132, potassium 4.1, chloride 87, CO2 38, anion gap 7, BUN 100, and creatinine 1.13. No recent chest x-ray to report. Progress note dated 12/02/2021. 61-year-old male, again seen in room 516. The patient appears awfully pale. We asked for a stat CBC. In addition, the patient had some drop in blood pressure. I did ask for a 500 mL fluid bolus. The patient was complaining of nausea, and Zofran was given. In addition, he was having problems with diarrhea, and we ended up stopping the lactulose. CBC this afternoon includes a white count of 8.5, hemoglobin of 4, hematocrit 13.6, and a platelet count of 197,000. We did ask for 2 units of packed red blood cells. Sodium 137, potassium 4.7, chlorides 90, CO2 35, anion gap 12, BUN 91, and creatinine 1.3. No chest x-ray. Vital signs included a temperature 97.6, heart rate 67, respiratory rate 20, and blood pressure 84/51 with a mean of 62. Objective - Vital Signs Vital signs: Vital Signs Temp 97.6 F 07/04/21 15:48 Pulse 67 07/04/21 15:48 Resp 20 07/04/21 15:48 BP 84/51 07/04/21 15:48 Pulse Ox 90 L 07/04/21 12:30 Intake & Output 07/03/21 07/04/21 07/04/21 18:59 06:59 18:59 Intake Total 250 400 60 Output Total 2600 1300 Balance -2350 -900 60 Weight 101.5 kg Intake: Intake, IV Titration 250 Amount Sodium Chloride 0.9% 500 250 ml 250 ml @ 999 mls/hr IV .Q16M ONE Rx#:[id number] Oral 400 60 Blood Product 0 Rc Irr As1 Unit 0 [id number] Output: Urine 2600 1300 Other: Voiding Method Indwelling Catheter Indwelling Catheter # Bowel Movements 1 - Exam No acute distress, oriented 3. Currently on room air with saturations of 95%. The patient is awfully pale. The patient was complaining about diarrhea and nausea. HEENT examination is grossly unremarkable. Neck supple. Full range of motion. No adenopathy thyromegaly or neck vein distention. Cardiovascular examination reveals regular rhythm rate. S1-S2 normal. No S3 or S4. No discernible murmur noted. Heart rate 67 bpm. Lungs reveal scattered bilateral rhonchi. Breath sounds are equal bilaterally but diminished through out. No wheezes or crackles. Abdomen soft bowel sounds are heard. No masses or tenderness. Extremities are intact. No cyanosis clubbing or edema. Skin is without rash or lesion. Skin is pale. Neurologic examination is brief but nonfocal. - Labs CBC & Chem 7: 07/04/21 14:17 07/04/21 07:17 Labs: Abnormal Lab Results - Last 24 Hours (Table) 07/03/21 07/03/21 07/04/21 Range/Units 17:25 20:25 07:17 RBC (4.30-5.90) m/uL Hgb (13.0-17.5) gm/dL Hct (39.0-53.0) % MCV (80.0-100.0) fL MCHC (31.0-37.0) g/dL RDW (11.5-15.5) % Lymphocytes # (1.0-4.8) k/uL Macrocytosis Chloride 90 L (96-109) mmol/L Carbon Dioxide 34.9 H (20.0-27.5) mmol/L BUN 90.6 H (9.0-27.0) mg/dL BUN/Creatinine Ratio 70.78 H (12.00-20.00) Ratio Glucose 130 H (70-110) mg/dL POC Glucose (mg/dL) 202 H 152 H (75-99) mg/dL Calcium 8.2 L (8.7-10.3) mg/dL Crossmatch 07/04/21 07/04/21 07/04/21 Range/Units 07:17 07:46 12:19 RBC 1.36 L (4.30-5.90) m/uL Hgb 4.3 L* D (13.0-17.5) gm/dL Hct 14.6 L* (39.0-53.0) % MCV 106.8 H D (80.0-100.0) fL MCHC 29.7 L (31.0-37.0) g/dL RDW 18.5 H (11.5-15.5) % Lymphocytes # 0.5 L (1.0-4.8) k/uL Macrocytosis Marked A Chloride (96-109) mmol/L Carbon Dioxide (20.0-27.5) mmol/L BUN (9.0-27.0) mg/dL BUN/Creatinine Ratio (12.00-20.00) Ratio Glucose (70-110) mg/dL POC Glucose (mg/dL) 145 H 109 H (75-99) mg/dL Calcium (8.7-10.3) mg/dL Crossmatch 07/04/21 07/04/21 Range/Units 14:17 14:17 RBC 1.29 L (4.30-5.90) m/uL Hgb 4.0 L* (13.0-17.5) gm/dL Hct 13.6 L* (39.0-53.0) % MCV 105.0 H (80.0-100.0) fL MCHC 29.7 L (31.0-37.0) g/dL RDW 19.2 H (11.5-15.5) % Lymphocytes # (1.0-4.8) k/uL Macrocytosis Chloride (96-109) mmol/L Carbon Dioxide (20.0-27.5) mmol/L BUN (9.0-27.0) mg/dL BUN/Creatinine Ratio (12.00-20.00) Ratio Glucose (70-110) mg/dL POC Glucose (mg/dL) (75-99) mg/dL Calcium (8.7-10.3) mg/dL Crossmatch See Detail Assessment and Plan Assessment: Mental status changes, which may relate to a positive drug screen for methamphetamines and marijuana. In addition, the patient was hypoxemic and hyponatremic. Mental status changes have dramatically improved. Acute hypoxemic respiratory failure secondary to CHF and COPD, much improved. Acute and worsening anemia, with initial hemoglobin of 12.7, and current hemoglobin of 4. Patient will receive 2 units of packed red blood cells. Pneumonia, bilateral lower lobes, clinically improved. Hyponatremia, likely secondary to daily alcohol consumption. Acute renal failure, improved. Thrombocytopenia, likely secondary to chronic alcohol use. Daily heavy alcohol use. Marijuana use. Chronic tobacco dependence. Plan: Plan dated 07/02/2021. The patient remains on prednisone 40 mg a day, Zosyn, updrafts, with albuterol sulfate and ipratropium bromide, as well as a nicotine patch. We will continue to follow make recommendations where appropriate. Prognosis is guarded. Additional recommendations and suggestions are forthcoming. The patient is counseled about the importance of smoking cessation. Plan dated 07/03/2021. Currently, the patient's doing well. Saturations are 95% on 3 L she is not manifesting any signs or symptoms of respiratory difficulty. There was no audible wheezing, use of accessory muscles, or conversational dyspnea. We will continue to follow make recommendations were appropriate. Prognosis is guarded. The patient remains on updrafts. He is also on a nicotine patch. The patient remains on Zosyn. Plan dated 07/04/2021. Today, we saw the patient, he appeared to be very pale. Hemoglobin was checked, and it was 4.3. Repeat was 4. The patient received 2 units of packed red blood cells. In addition, the patient was to receive some Zofran for nausea, and we asked the nurse to stop the lactulose that he was having diarrhea. We also asked the nurse to check the stools for blood. The patient was to receive a 500 mL fluid bolus of saline. The patient's Eliquis was held. It was on Eliquis f or new onset atrial fibrillation with rapid ventricular response. If the patient does not stabilize on blood and fluids, he may need to come to the intensive care unit for further monitoring and management. Time with Patient: Less than 30
[2021-07-04] MEDS: ACETAMINOPHEN TAB 325 MG TAB PO PRN ×2 (16:03→22:25)
[2021-07-04] MEDS ORDERED: DESMOPRESSIN ACETATE IVPB ONE (17:42)
[2021-07-04] MEDS ORDERED: SODIUM CHLORIDE 0.9% IVPB ONE (17:42)
[2021-07-04 17:55] LABS: Glucose,Whole Blood 178 mg/dL (75-99)
[2021-07-04 20:26] LABS: Glucose,Whole Blood 147 mg/dL (75-99)
[2021-07-04] MEDS: INSULIN DETEMIR (LEVEMIR) 100 UNIT/ML SYR SQ SCH (20:43)
[2021-07-04] MEDS: MIRTAZAPINE 15 MG TAB PO SCH (20:43)
[2021-07-05] MEDS: HYDROCORTISONE SUCCINATE 100 MG/2 ML VIAL IV SCH ×4 (01:16→23:52)
[2021-07-05 03:56] LABS: Anisocytosis Moderate; Hypochromasia Moderate; MCH 31.1 pg (25.0-35.0); MCHC 32.1 g/dL (31.0-37.0); Macrocytosis Slight; Platelet Count 184 k/uL (150-450); Poikilocytosis Moderate; RBC 1.82 m/uL (4.30-5.90); RDW 20.4 % (11.5-15.5)
[2021-07-05 04:06] LABS: HCT 17.7 % (39.0-53.0)
[2021-07-05 04:07] LABS: HGB 5.7 gm/dL (13.0-17.5); MCV 96.9 fL (80.0-100.0)
[2021-07-05 04:26] LABS: Calcium 7.8 mg/dL (8.4-10.2); Magnesium 1.7 mg/dL (1.6-2.3); Potassium 4.3 mmol/L (3.5-5.1)
[2021-07-05] MEDS: ACETAMINOPHEN TAB 325 MG TAB PO PRN ×3 (04:54→18:32)
[2021-07-05] MEDS: DILTIAZEM CD 120 MG CAP.ER.24H PO SCH ×3 (05:09→20:32)
[2021-07-05 06:00] LABS: Glucose,Whole Blood 143 mg/dL (75-99)
[2021-07-05] MEDS: INSULIN ASPART (NovoLOG) 100 UNIT/ML VIAL SQ SCH ×4 (06:34→20:32)
[2021-07-05] MEDS: PANTOPRAZOLE 40 MG TABLET PO SCH (06:34)
[2021-07-05] MEDS: IPRATROPIUM-ALBUTEROL 3 ML NEB INHALATION SCH ×4 (07:39→20:04)
[2021-07-05 08:17] LABS: Albumin 2.6 g/dL (3.8-4.9); Albumin/Globulin Ratio 1.88 (1.60-3.17); Globulin 1.4 g/dL (1.6-3.3); Total Bilirubin 0.3 mg/dL (0.30-1.20)
--- NOTE | 2021-07-05 09:23 | P.PN ---
Subjective Patient is seen in follow-up for hyponatremia and acute kidney injury. Sodium level stable at 132 today. Patient developed acute GI bleed yesterday with hemoglobin of 4. He's been receiving blood transfusions. Creatinine 1.5 today. Has a Zaragoza catheter. Nonoliguric. Does complain of black stools. Vital signs blood pressure on the lower side. Gen: The patient appeared well nourished and normally developed. HEENT: Head exam is unremarkable. LUNGS: Breath sounds decreased. HEART: Rate and Rhythm are regular. ABDOMEN: Soft, no distention. EXTREMITITES: Trace edema. Objective - Vital Signs Vital signs: Vital Signs Temp 98.2 F 07/05/21 06:30 Pulse 88 07/05/21 06:30 Resp 16 07/05/21 06:30 BP 84/59 07/05/21 06:30 Pulse Ox 100 07/05/21 06:30 Intake & Output 07/04/21 07/05/21 07/05/21 18:59 06:59 18:59 Intake Total 390 550 Output Total 4300 Balance 390 -3750 Weight 102 kg Intake: Oral 60 240 Blood Product 310 310 Rc Irr As1 Unit 310 [id number] Rc Irr As1 Unit 310 [id number] Rc Pheresis 2 As3 Unit 0 [id number] Other 20 Rc Irr As1 Unit 20 [id number] Output: Urine 4300 Other: Voiding Method Indwelling Catheter Indwelling Catheter - Labs CBC & Chem 7: 07/05/21 03:19 07/05/21 03:19 Labs: Abnormal Lab Results - Last 24 Hours (Table) 07/04/21 07/04/21 07/04/21 Range/Units 07:17 07:17 12:19 RBC 1.36 L (4.30-5.90) m/uL Hgb 4.3 L* D (13.0-17.5) gm/dL Hct 14.6 L* (39.0-53.0) % MCV 106.8 H D (80.0-100.0) fL MCHC 29.7 L (31.0-37.0) g/dL RDW 18.5 H (11.5-15.5) % Lymphocytes # 0.5 L (1.0-4.8) k/uL Macrocytosis Marked A Sodium (137-145) mmol/L Chloride 90 L (96-109) mmol/L Carbon Dioxide 34.9 H (20.0-27.5) mmol/L BUN 90.6 H (9.0-27.0) mg/dL Creatinine (0.66-1.25) mg/dL BUN/Creatinine Ratio 70.78 H (12.00-20.00) Ratio Glucose 130 H (70-110) mg/dL POC Glucose (mg/dL) 109 H (75-99) mg/dL Calcium 8.2 L (8.7-10.3) mg/dL Alkaline Phosphatase 40 L (41-126) U/L Total Protein 4.0 L (6.2-8.2) g/dL Albumin 2.6 L (3.8-4.9) g/dL Globulin 1.4 L (1.6-3.3) g/dL Crossmatch 07/04/21 07/04/21 07/04/21 Range/Units 14:17 14:17 17:54 RBC 1.29 L (4.30-5.90) m/uL Hgb 4.0 L* (13.0-17.5) gm/dL Hct 13.6 L* (39.0-53.0) % MCV 105.0 H (80.0-100.0) fL MCHC 29.7 L (31.0-37.0) g/dL RDW 19.2 H (11.5-15.5) % Lymphocytes # (1.0-4.8) k/uL Macrocytosis Sodium (137-145) mmol/L Chloride (96-109) mmol/L Carbon Dioxide (20.0-27.5) mmol/L BUN (9.0-27.0) mg/dL Creatinine (0.66-1.25) mg/dL BUN/Creatinine Ratio (12.00-20.00) Ratio Glucose (70-110) mg/dL POC Glucose (mg/dL) 178 H (75-99) mg/dL Calcium (8.7-10.3) mg/dL Alkaline Phosphatase (41-126) U/L Total Protein (6.2-8.2) g/dL Albumin (3.8-4.9) g/dL Globulin (1.6-3.3) g/dL Crossmatch See Detail 07/04/21 07/05/21 07/05/21 Range/Units 20:25 03:19 03:19 RBC 1.82 L (4.30-5.90) m/uL Hgb 5.7 L* D (13.0-17.5) gm/dL Hct 17.7 L* (39.0-53.0) % MCV (80.0-100.0) fL MCHC (31.0-37.0) g/dL RDW 20.4 H (11.5-15.5) % Lymphocytes # (1.0-4.8) k/uL Macrocytosis Sodium 132 L (137-145) mmol/L Chloride 90 L (96-109) mmol/L Carbon Dioxide 39 H (20.0-27.5) mmol/L BUN 107 H* (9.0-27.0) mg/dL Creatinine 1.50 H (0.66-1.25) mg/dL BUN/Creatinine Ratio (12.00-20.00) Ratio Glucose 124 H (70-110) mg/dL POC Glucose (mg/dL) 147 H (75-99) mg/dL Calcium 7.8 L (8.7-10.3) mg/dL Alkaline Phosphatase (41-126) U/L Total Protein (6.2-8.2) g/dL Albumin (3.8-4.9) g/dL Globulin (1.6-3.3) g/dL Crossmatch 07/05/21 Range/Units 05:58 RBC (4.30-5.90) m/uL Hgb (13.0-17.5) gm/dL Hct (39.0-53.0) % MCV (80.0-100.0) fL MCHC (31.0-37.0) g/dL RDW (11.5-15.5) % Lymphocytes # (1.0-4.8) k/uL Macrocytosis Sodium (137-145) mmol/L Chloride (96-109) mmol/L Carbon Dioxide (20.0-27.5) mmol/L BUN (9.0-27.0) mg/dL Creatinine (0.66-1.25) mg/dL BUN/Creatinine Ratio (12.00-20.00) Ratio Glucose (70-110) mg/dL POC Glucose (mg/dL) 143 H (75-99) mg/dL Calcium (8.7-10.3) mg/dL Alkaline Phosphatase (41-126) U/L Total Protein (6.2-8.2) g/dL Albumin (3.8-4.9) g/dL Globulin (1.6-3.3) g/dL Crossmatch Assessment and Plan Plan: Assessment: 1. Hypervolemic hyponatremia improved with diuresis. Sodium level 132. He did receive IV DDAVP as well as normal saline bolus yesterday which caused the s odium level to drop. 2. Volume overload. Improved with diuresis. 3. Alcohol abuse. 4. Acute kidney injury secondary to hemodynamic ATN and acute blood loss anemia. Creatinine 1.5 today. Elevated BUN secondary to GI bleed as well as steroids. 5. Metabolic alkalosis from diuresis. 6. Acute GI bleed receiving blood transfusions. He did receive IV DDAVP July 04. Eliquis stopped. Surgery following. 7. Hypotension due to severe anemia. Cortisol level not low. Plan: Maintain oral Lasix. Maintain 1500 mL fluid restriction. Encourage oral intake. Repeat labs in the morning. Avoid nephrotoxins. Continue to monitor renal function and urine output. Add midodrine.
[2021-07-05] MEDS: FUROSEMIDE 40 MG TAB PO SCH (09:28)
[2021-07-05] MEDS: NICOTINE 21MG/24HR PATCH TRANSDERM SCH (09:28)
[2021-07-05] MEDS: METOPROLOL TARTRATE 12.5 MG TAB PO SCH ×2 (09:28→20:31)
[2021-07-05] MEDS: SERTRALINE 50 MG TAB PO SCH (09:29)
--- NOTE | 2021-07-05 10:23 | P.CRDCN ---
History of Present Illness Consult date: 07/05/21 Reason for Consult (text): Previous abnormal echocardiogram and history of chronic persistent atrial fibrillation History of present illness: History of Presenting Illness: Patient is a very pleasant 61-year-old male with a past medical history of permanent atrial fibrillation, hypertension, hyperlipidemia, COPD with ongoing tobacco dependence., Alcohol abuse, and cannabis use. He was admitted to the hospital on 06/26/21 for acute metabolic encephalopathy secondary to alcohol intoxication, hyponatremia, and elevated ammonia levels. On 07/04/21 patient was noted to have acute blood loss anemia with hemoglobin of 4.3 from previous 9.7 resulting in transfusion of 3 units PRBCs with current hemoglobin of 6.5. We were consulted this morning secondary to history of atrial fibrillation on Coumadin signs of previous echocardiogram report. Previous echocardiogram completed 10/27/20 revealed EF of 50-55% with mild mitral and tricuspid regurgitation and moderate pulmonary hypertension. Patient seen and fully edouard luated at the bedside this morning. Patient somewhat of a poor historian but does report to daily alcohol use/abuse drinking a half a gallon of liquor per day. At time of assessment patient completing third unit of PRBCs since diagnosis of acute blood loss anemia on 07/04/21. Patient currently denies experiencing any headache, lightheadedness, dizziness, chest pain, palpitations, shortness of breath, weakness, or experiencing any numbness/tingling/weakness in his extremities. Review of systems: Pertinent positives and negatives as discussed in HPI, a complete review of systems was performed and all other systems are negative. Physical exam: Vital signs reviewed and stable. General: Nontoxic, no distress and appears stated age. Derm: Skin warm and dry, pallor Head: Atraumatic, normocephalic and symmetric. Eyes: EOMs intact, no lid lag, and anicteric sclera Mouth: no lip lesions, mucus membranes dry Cardiovascular: Irregularly irregular rhythm, distant heart sounds, positive posterior tibial pulses bilaterally, and cap refill < 2 seconds. Lungs: Respirations even, regular, and unlabored on room air. Lungs diminished, no rhonchi, no rales, no wheezing, and no accessory muscle usage. Abdominal: soft, nontender to palpation, no guarding, no appreciable organomegaly Ext: ROM intact. No gross muscle atrophy, no edema, no contractures Neuro: Speech clear, face symmetrical and CN II-XII grossly intact with no noted focal neuro deficits Psych: Alert and oriented to person, place, time, and situation. Appropriate and pleasant affect. Assessment and Plan of Care: Permanent atrial fibrillation with episode of RVR Hypertension Hyperlipidemia Alcohol abuse reportedly drinking a half a gallon of alcohol daily Acute blood loss anemia Hyponatremia Telemetry monitoring Continuation of cardiac medications including Cardizem, Lasix, Midodrine and metoprolol. Echocardiogram to be completed Recommend holding off on anticoagulation pending current treatment of GI bleed and need of transfusions We will reevaluate benefits versus risks of anticoagulation once patient is cleared by GI We will continue to follow with further recommendations pending results and pat ient clinical course. Continue to strongly encourage and recommend total cessation of EtOH use. Thank you for allowing us to participate in the care of this pleasant patient. Do not hesitate to contact us with questions. Nurse practitioner note has been reviewed by physician. Signing provider agrees with the documented findings, assessment, and plan of care. Past Medical History Past Medical History: Atrial Fibrillation, COPD, Hypertension History of Any Multi-Drug Resistant Organisms: None Reported Past Surgical History: No Surgical Hx Reported Past Anesthesia/Blood Transfusion Reactions: No Reported Reaction Past Psychological History: Depression Smoking Status: Current every day smoker Past Alcohol Use History: Abuse, Daily, Heavy Additional Past Alcohol Use History / Comment(s): Patient states he drinks a fifth of vodka daily Past Drug Use History: Marijuana Additional Drug Use History / Comment(s): Patient states he does not do meth, but the people he lives with do. Medications and Allergies Home Medications Medication Instructions Recorded Confirmed Type Unable To Assess [Unable to Assess] 06/26/21 06/26/21 History Allergies Allergy/AdvReac Type Severity Reaction Status Date / Time No Known Allergies Allergy Verified 06/26/21 11:56 Physical Exam Vitals: Vital Signs Temp Pulse Pulse Resp BP BP Pulse Ox 07/05/21 09:29 98.4 F 96 16 121/77 100 07/05/21 06:30 98.2 F 88 16 84/59 100 07/05/21 06:00 97.4 F L 79 16 99/65 93 L 07/05/21 05:50 98.0 F 98 18 94/58 99 07/05/21 03:36 98.5 F 83 18 92/61 100 07/05/21 01:05 97.5 F L 91 20 92/59 01/29/22 23:29 98.1 F 87 18 92/57 96 07/04/21 22:17 98.0 F 102 H 16 92/57 97 07/04/21 21:47 98.3 F 103 H 18 90/53 07/04/21 21:37 98.1 F 99 18 85/50 95 07/04/21 20:08 98 07/04/21 19:58 103 H 07/04/21 19:51 97.5 F L 94 16 97/63 99 07/04/21 18:02 97.5 F L 63 18 87/52 95 07/04/21 17:15 98.1 F 75 17 95/63 98 07/04/21 16:35 97.9 F 88 84 19 82/50 100 07/04/21 16:28 97.6 F 96 20 97/63 07/04/21 15:58 97.5 F L 82 20 84/44 07/04/21 15:48 97.6 F 67 20 84/51 07/04/21 15:19 84 76/44 07/04/21 14:33 101 H 87/58 07/04/21 13:17 80 07/04/21 13:09 78 07/04/21 12:30 97.7 F 81 18 71/45 90 L Intake and Output 07/04/21 07/05/21 07/05/21 22:59 06:59 14:59 Intake Total 330 550 Output Total 3000 1300 Balance -2670 -750 Intake: Oral 240 Blood Product 310 310 Rc Irr As1 Unit 310 [id number] Rc Irr As1 Unit 0 310 [id number] Rc Pheresis 2 As3 Unit 0 [id number] Other 20 Rc Irr As1 Unit 20 [id number] Output: Urine 3000 1300 Other: Voiding Method Indwelling Catheter Indwelling Catheter Indwelling Catheter Weight 102 kg Results 07/05/21 10:50 07/05/21 03:19 Cardiac Enzymes 07/04/21 Range/Units 07:17 AST 24 (14-35) U/L CBC 07/04/21 07/04/21 07/05/21 Range/Units 07:17 14:17 03:19 WBC 6.9 8.5 8.0 (3.8-10.6) k/uL RBC 1.36 L 1.29 L 1.82 L (4.30-5.90) m/uL Hgb 4.3 L* D 4.0 L* 5.7 L* D (13.0-17.5) gm/dL Hct 14.6 L* 13.6 L* 17.7 L* (39.0-53.0) % Plt Count 171 197 184 (150-450) k/uL Comprehensive Metabolic Panel 07/04/21 07/05/21 Range/Units 07:17 03:19 Sodium 137 132 L (135-145) mmol/L Potassium 4.7 4.3 (3.5-5.5) mmol/L Chloride 90 L 90 L (96-109) mmol/L Carbon Dioxide 34.9 H 39 H (20.0-27.5) mmol/L BUN 90.6 H 107 H* (9.0-27.0) mg/dL Creatinine 1.3 1.50 H (0.6-1.5) mg/dL Glucose 130 H 124 H (70-110) mg/dL Calcium 8.2 L 7.8 L (8.7-10.3) mg/dL AST 24 (14-35) U/L ALT 27 (10-49) U/L Alkaline Phosphatase 40 L (41-126) U/L Total Protein 4.0 L (6.2-8.2) g/dL Albumin 2.6 L (3.8-4.9) g/dL Current Medications Generic Name Dose Route Start Last Admin Trade Name Freq PRN Reason Stop Dose Admin Acetaminophen 650 mg 06/26/21 14:11 07/05/21 04:54 Acetaminophen Tab 325 Mg Tab PO 650 mg Q6HR PRN Administration Fever and/ or Pain Albuterol/Ipratropium 3 ml 06/26/21 14:11 07/01/21 05:12 Ipratropium-Albuterol 3 Ml Neb INHALATION 3 ml RT-QID PRN Administration Shortness Of Breath Albuterol/Ipratropium 3 ml 06/28/21 16:00 07/05/21 07:39 Ipratropium-Albuterol 3 Ml Neb INHALATION Not Given RT-QID [facility] Diltiazem HCl 120 mg 07/01/21 09:00 07/05/21 09:28 Diltiazem Cd 120 Mg Cap.Er.24h PO 120 mg BID [facility] Administration Furosemide 40 mg 07/03/21 09:00 07/05/21 09:28 Furosemide 40 Mg Tab PO 40 mg DAILY [facility] Administration Haloperidol Lactate 1 mg 06/29/21 14:56 Haloperidol Lactate 5 Mg/Ml 1 Ml Vial IVP Q8HR PRN Agitation or Acute Psychosis Hydrocortisone Sodium Succinate 100 mg 07/03/21 10:30 07/05/21 09:27 Hydrocortisone Succinate 100 Mg/2 Ml Vial IV 100 mg Q8HR [facility] Administration Insulin Aspart 0 unit 06/28/21 12:30 07/05/21 06:34 Insulin Aspart (Novolog) 100 Unit/Ml Vial SQ 2 unit ACHS [facility] Administration Protocol Insulin Detemir 10 unit 07/01/21 21:00 07/04/21 20:43 Insulin Detemir (Levemir) 100 Unit/Ml Syr SQ 10 unit HS [facility] Administration Lorazepam 1 mg 06/26/21 14:10 06/29/21 02:47 Lorazepam 2 Mg/Ml Inj IV 1 mg Q2HR PRN Administration CIWA 8 or 9 Lorazepam 1 mg 06/26/21 14:10 Lorazepam 2 Mg/Ml Inj IV Q1HR PRN CIWA 10 to 15 Metoprolol Tartrate 12.5 mg 07/02/21 13:15 07/05/21 09:28 Metoprolol Tartrate 12.5 Mg Tab PO 12.5 mg BID [facility] Administration Midodrine 5 mg 07/05/21 12:30 Midodrine 5 Mg Tab PO AC-TID [facility] Mirtazapine 15 mg 07/03/21 21:00 07/04/21 20:43 Mirtazapine 15 Mg Tab PO 15 mg HS [facility] Administration Nicotine 1 patch 06/27/21 09:00 07/05/21 09:28 Nicotine 21mg/24hr Patch TRANSDERM 1 patch DAILY [facility] Administration Ondansetron HCl 4 mg 06/26/21 14:11 07/04/21 09:07 Ondansetron 4 Mg/2 Ml Vial IVP 4 mg Q6HR PRN Administration Nausea And Vomiting Ondansetron HCl 4 mg 07/03/21 14:31 Ondansetron 4 Mg Tab PO Q8HR PRN Nausea And Vomiting Pantoprazole Sodium 40 mg 07/05/21 21:00 Pantoprazole 40 Mg/10 Ml Vial IVP BID [facility] Sertraline HCl 50 mg 07/02/21 15:15 07/05/21 09:29 Sertraline 50 Mg Tab PO 50 mg DAILY [facility] Administration Intake and Output 07/04/21 07/05/21 07/05/21 22:59 06:59 14:59 Intake Total 330 550 Output Total 3000 1300 Balance -0279 -150 Intake: Oral 240 Blood Product 310 310 Rc Irr As1 Unit 310 [id number] Rc Irr As1 Unit 0 310 [id number] Rc Pheresis 2 As3 Unit 0 [id number] Other 20 Rc Irr As1 Unit 20 [id number] Output: Urine 3000 1300 Other: Voiding Method Indwelling Catheter Indwelling Catheter Indwelling Catheter Weight 102 kg 07/05/21 03:19 07/05/21 03:19
--- NOTE | 2021-07-05 10:42 | P.PN ---
Subjective Progress Note Date: 07/05/21 Principal diagnosis: AMS patient yesterday hemoglobin was 5 and 2 units of blood were ordered to be transfused. Blood pressure was borderline 90s over 50s and patient was transf erred to the stepdown unit for close monitoring and continue to be on nasal cannula. This morning patient is lethargic but still arousable to voice command seems to be appropriate answering questions and at baseline mental status. No GI bleed reported by nursing staff. No bowel movement since yesterday no vomiting reported and patient has been tolerating diet since yesterday. Objective - Vital Signs Vital signs: Vital Signs Temp 98.4 F 07/05/21 09:29 Pulse 96 07/05/21 09:29 Resp 16 07/05/21 09:29 BP 121/77 07/05/21 09:29 Pulse Ox 100 07/05/21 09:29 Intake & Output 07/04/21 07/05/21 07/05/21 18:59 06:59 18:59 Intake Total 390 550 Output Total 4300 Balance 390 -3750 Weight 102 kg Intake: Oral 60 240 Blood Product 310 310 Rc Irr As1 Unit 310 [id number] Rc Irr As1 Unit 310 [id number] Rc Pheresis 2 As3 Unit 0 [id number] Other 20 Rc Irr As1 Unit 20 [id number] Output: Urine 4300 Other: Voiding Method Indwelling Catheter Indwelling Catheter Indwelling Catheter - Exam Gen.: in stated age, no acute distress Heart: Normal S1-S2 Lungs: Clear to auscultation bilaterally Abdomen: Soft, no tenderness, positive bowel sounds in all 4 quadrant no guarding or rebound Skin: No new rash Psych: Alert and oriented 3 Neuro: No focal deficit - Labs CBC & Chem 7: 07/05/21 03:19 07/05/21 03:19 Labs: Abnormal Lab Results - Last 24 Hours (Table) 07/04/21 07/04/21 07/04/21 Range/Units 07:17 07:17 12:19 RBC 1.36 L (4.30-5.90) m/uL Hgb 4.3 L* D (13.0-17.5) gm/dL Hct 14.6 L* (39.0-53.0) % MCV 106.8 H D (80.0-100.0) fL MCHC 29.7 L (31.0-37.0) g/dL RDW 18.5 H (11.5-15.5) % Lymphocytes # 0.5 L (1.0-4.8) k/uL Macrocytosis Marked A Sodium (137-145) mmol/L Chloride 90 L (96-109) mmol/L Carbon Dioxide 34.9 H (20.0-27.5) mmol/L BUN 90.6 H (9.0-27.0) mg/dL Creatinine (0.66-1.25) mg/dL BUN/Creatinine Ratio 70.78 H (12.00-20.00) Ratio Glucose 130 H (70-110) mg/dL POC Glucose (mg/dL) 109 H (75-99) mg/dL Calcium 8.2 L (8.7-10.3) mg/dL Alkaline Phosphatase 40 L (41-126) U/L Total Protein 4.0 L (6.2-8.2) g/dL Albumin 2.6 L (3.8-4.9) g/dL Globulin 1.4 L (1.6-3.3) g/dL Crossmatch 07/04/21 07/04/21 07/04/21 Range/Units 14:17 14:17 17:54 RBC 1.29 L (4.30-5.90) m/uL Hgb 4.0 L* (13.0-17.5) gm/dL Hct 13.6 L* (39.0-53.0) % MCV 105.0 H (80.0-100.0) fL MCHC 29.7 L (31.0-37.0) g/dL RDW 19.2 H (11.5-15.5) % Lymphocytes # (1.0-4.8) k/uL Macrocytosis Sodium (137-145) mmol/L Chloride (96-109) mmol/L Carbon Dioxide (20.0-27.5) mmol/L BUN (9.0-27.0) mg/dL Creatinine (0.66-1.25) mg/dL BUN/Creatinine Ratio (12.00-20.00) Ratio Glucose (70-110) mg/dL POC Glucose (mg/dL) 178 H (75-99) mg/dL Calcium (8.7-10.3) mg/dL Alkaline Phosphatase (41-126) U/L Total Protein (6.2-8.2) g/dL Albumin (3.8-4.9) g/dL Globulin (1.6-3.3) g/dL Crossmatch See Detail 07/04/21 07/05/21 07/05/21 Range/Units 20:25 03:19 03:19 RBC 1.82 L (4.30-5.90) m/uL Hgb 5.7 L* D (13.0-17.5) gm/dL Hct 17.7 L* (39.0-53.0) % MCV (80.0-100.0) fL MCHC (31.0-37.0) g/dL RDW 20.4 H (11.5-15.5) % Lymphocytes # (1.0-4.8) k/uL Macrocytosis Sodium 132 L (137-145) mmol/L Chloride 90 L (96-109) mmol/L Carbon Dioxide 39 H (20.0-27.5) mmol/L BUN 107 H* (9.0-27.0) mg/dL Creatinine 1.50 H (0.66-1.25) mg/dL BUN/Creatinine Ratio (12.00-20.00) Ratio Glucose 124 H (70-110) mg/dL POC Glucose (mg/dL) 147 H (75-99) mg/dL Calcium 7.8 L (8.7-10.3) mg/dL Alkaline Phosphatase (41-126) U/L Total Protein (6.2-8.2) g/dL Albumin (3.8-4.9) g/dL Globulin (1.6-3.3) g/dL Crossmatch 07/05/21 Range/Units 05:58 RBC (4.30-5.90) m/uL Hgb (13.0-17.5) gm/dL Hct (39.0-53.0) % MCV (80.0-100.0) fL MCHC (31.0-37.0) g/dL RDW (11.5-15.5) % Lymphocytes # (1.0-4.8) k/uL Macrocytosis Sodium (137-145) mmol/L Chloride (96-109) mmol/L Carbon Dioxide (20.0-27.5) mmol/L BUN (9.0-27.0) mg/dL Creatinine (0.66-1.25) mg/dL BUN/Creatinine Ratio (12.00-20.00) Ratio Glucose (70-110) mg/dL POC Glucose (mg/dL) 143 H (75-99) mg/dL Calcium (8.7-10.3) mg/dL Alkaline Phosphatase (41-126) U/L Total Protein (6.2-8.2) g/dL Albumin (3.8-4.9) g/dL Globulin (1.6-3.3) g/dL Crossmatch Assessment and Plan Assessment: 1. Acute encephalopathy, multifactorial including alcohol intoxication and metabolic component with elevated ammonia level. 2. Alcohol abuse. 3. Acute depression. 4. Thrombocytopenia likely secondary to above. 5. Recent respiratory failure with hypoxia likely related to possible aspiration pneumonia. 6. Severe debility and deconditioning. 7. COPD, seems to be improving. 8. New onset atrial fibrillation with rapid ventricular response, heart rate under better control. 9. Polysubstance abuse. 10. Anemia with history of GI bleed. 2 units were transfused yesterday due to acute GI bleed which was not visible and exam but patient is at baseline mental status and repeated hemoglobin this morning showed some improvement but still 5.7 and I would like to transfuse another unit repeat CBC after switch patient to Protonix 40 mg IV push twice daily and I consult that general surgery yesterday who has not seen the patient as GI where not available on the weekend but today I would like to consult with GI and wait on the recommendation for anticipation of EGD in the morning and possible colonoscopy in the future. Patient currently is hemodynamically stable at baseline mental status responding to blood transfusion with improvement in hemoglobin and I would like to monitor closely. I attempted to call the family on the provided number on the face sheet without an answer and I would like to continue with current close monitoring for hemodynamic on the stepdown unit and continue holding anticoagulation at this point. Prognosis remained guarded. Plan discussed with nursing staff at the bedside 2-D echo reviewed and revealed severe mitral regurgitation and pulmonary hypertension with pressure of 56. TSH was normal. I consult and with ca rdiology who were at the bedside and we'll follow-up with the recommendation regarding the 2-D echo finding area did prognosis is guarded at this point
[2021-07-05 11:07] LABS: Anisocytosis Moderate; Basophils % (A) 0 %; Eosinophils % (A) 0 %; Hypochromasia Slight; Lymphocytes # (A) 0.6 k/uL (1.0-4.8); Lymphocytes % (A) 7 %; MCH 30.6 pg (25.0-35.0); MCHC 32.5 g/dL (31.0-37.0); MCV 94.2 fL (80.0-100.0); Macrocytosis Slight; Mean Platelet Volume 9.1; Monocytes # (A) 0.8 k/uL (0-1.0); Monocytes % (A) 10 %; Neutrophils # (A) 6.7 k/uL (1.3-7.7); Neutrophils % (A) 81 %; Platelet Count 209 k/uL (150-450); Poikilocytosis Moderate; RBC 2.12 m/uL (4.30-5.90); WBC 8.4 k/uL (3.8-10.6)
[2021-07-05 11:21] LABS: HGB 6.5 gm/dL (13.0-17.5)
[2021-07-05 11:59] LABS: Glucose,Whole Blood 131 mg/dL (75-99)
[2021-07-05] MEDS: MIDODRINE 5 MG TAB PO SCH ×2 (12:27→16:41)
--- NOTE | 2021-07-05 14:22 | P.PN ---
Subjective Progress Note Date: 07/05/21 This is a 61-year-old male patient with a history of atrial fibrillation, hypertension, depression, chronic obstructive pulmonary disease with chronic and ongoing tobacco dependence, D we have a alcohol use, marijuana use. He was brought into the emergency room yesterday after his roommate found him unre sponsive. In the emergency room he was more awake he denied even wanted to be at the hospital. He denied any suicidal/homicidal ideations. He was having issues with shortness of breath. No chest pain. No abdominal pain. No nausea or vomiting. Computed tomography scan of the brain revealed no acute intracranial hemorrhage or midline shift. There is mild diffuse age-related cerebral atrophy and moderate nonspecific white matter changes. Chest x-ray revealed evidence of cardiomegaly with tiny bilateral pleural effusions and mild interstitial edema suspected CHF. EKG revealed atrial fibrillation with a right bundle branch block and white count 4.5. Hemoglobin 12.0. Platelet count 76, 000. Sodium 120. Potassium 5.0. BUN 41. Creatinine 1.88. Troponins negative 2. ProBNP 2300. Serum osmolality 332. Urine osmolality 382. Urine random sodium less than 20. Stool for occult blood positive. Urine drug screen positive for methamphetamines and marijuana. The patient is seen today in consultation on the selective care unit. He is currently resting fairly comfortably in bed. He is confused at times. Trying to get out of bed. noteman is at the bedside. He is maintaining O2 saturations at 90% on 3 L/m per nasal cannula. He's been afebrile. Hemodynamically stable. Today's chest x- ray reveals a right lower lobe opacity with the left lower lobe opacity developi ng infectious process. Stable cardiomegaly and mild pulmonary vascular congestion. Evidence of COPD. He's been initiated on IV Solu-Medrol, bronchodilators, IV diuretics. NicoDerm patch in place. He is in the [facility]WA protocol. On 06/28/2021 patient seen in follow-up on selective care unit, he is currently lethargic, he has just received some IV Ativan for alcohol withdrawal symptoms. Patient has been receiving daily dose of IV Lasix 40 mg, he is on IV Solu- Medrol, Zosyn for possibility of aspiration related pneumonia. Today's chest x- ray showing right lower lobe pneumonia or atelectasis, and we'll effusion was difficult to exclude. He is currently on BiPAP support with pressures of 14 and 6 and 40% and his pulse ox is 97%. Lung sounds are diminished bilaterally, with expiratory wheezing. Overall seems to be in no acute distress, he is arousable to verbal and tactile stimulation. Labs have been reviewed, patient had a set of blood gases done earlier showing pO2 of 262, pCO2 of 65 and pH of 7.26 this was done on FiO2 of 100% and FiO2 has since been dropped down to 40%, serum s odium is 122, potassium is 5.5, chloride is 88, BUN of 72 and creatinine is 1.56. On 06/29/2021 patient seen in follow-up. Patient is currently on 4 L of oxygen the pulse ox of 97%, he sleepy, still confused, but not agitated, lung sounds are diminished, without rhonchi or wheezing, he is off BiPAP support, he is asking for water, he feels thirsty. Vitals is having stable overnight, afebrile, his chest x-ray shows cardiomegaly with right greater than left bilateral lower lung acute infiltrates and/or atelectasis with right-sided volume loss without significant change from one day earlier. His labs have been reviewed, sodium is 128, potassium is 4.0, chloride is 85, CO2 38, BUN is 63, creatinine is 1.32. Sodium is improved, patient has been receiving diuretics, and this is being managed by nephrology on the case, patient is currently on Lasix 40 mg every 12 hours. He remains on IV steroids with Solu-Medrol 60 mg every 6 hours, he is on Zosyn for possibility of aspiration related pneumonia. The patient is seen today 06/30/2021 in follow-up on the selective care unit. He is currently resting comfortably in bed. Awake and alert in no acute distress. He is maintaining O2 saturations in the 90s on 3 L high flow nasal cannula. He's been afebrile. Hemodynamically stable. Chest x-ray reveals improved aeration in the left lung base. Continued extensive consolidation or atelectasis at the right lower lobe. White count 4.9. Hemoglobin 9.7. Platelet count 129,000. Lymphocytes 0.2. Sodium 132. Potassium 3.1. Creatinine 1.03. Glucose 149. He is continued on DuoNeb inhalations, IV diuretics, IV Solu-Medrol, antibiotics in the form of Zosyn. NicoDerm patch in place. Continued in the CIIL protocol. The patient is seen today 07/01/2021 in follow-up on selective care unit. He remains awake and alert in no acute distress. Resting fairly comfortably in bed. Maintaining O2 saturations in the 90s on 3 L/m per nasal cannula. Glucose 160. He remains on Zosyn, IV Solu-Medrol, bronchodilators. NicoDerm patch is in place. Remains on IV diuretics. Currently in a -1.9 L balance. Weight is down to 106.2 kg. The patient is seen today 07/05/2021 in follow-up on the selective care unit. Yesterday he was found to be quite anemic and required 3 units of packed red blood cells. He was having dark tarry stools. He was brought back over from the regular medical floor to the selective care unit. He is currently resting fairly comfortably in bed. Less pale today. Feeling a bit stronger. Current hemoglobin 6.5. White count 8.4. Blood glucose 131. He remains on IV Protonix 40 mg twice a day. Continued on Solu-Cortef, bronchodilators. NicoDerm patch in place. Objective - Vital Signs Vital signs: Vital Signs Temp 98.4 F 07/05/21 12:00 Pulse 83 07/05/21 12:00 Resp 16 07/05/21 12:00 BP 104/79 07/05/21 12:00 Pulse Ox 97 07/05/21 12:00 Intake & Output 07/04/21 07/05/21 07/05/21 18:59 06:59 18:59 Intake Total 390 550 279 Output Total 4300 Balance 390 -3750 279 Weight 102 kg Intake: Oral 60 240 Blood Product 310 310 279 Rc Irr As1 Unit 310 [id number] Rc Irr As1 Unit 310 [id number] Rc Pheresis 2 As3 Unit 0 279 [id number] Other 20 Rc Irr As1 Unit 20 [id number] Output: Urine 4300 Other: Voiding Method Indwelling Catheter Indwelling Catheter Indwelling Catheter - Exam GENERAL EXAM: Awake, alert 61-year-old male patient, on 3 L of oxygen with pulse ox of 97%, no acute distress. HEAD: Normocephalic/atraumatic. EYES: Normal reaction of pupils, equal size. Conjunctiva pink, sclera white. NOSE: Clear with pink turbinates. THROAT: No erythema or exudates. NECK: No masses, no JVD, no thyroid enlargement, no adenopathy. CHEST: No chest wall deformity. Symmetrical expansion. LUNGS: Equal air entry with diminished breath sounds, no crackles, no rhonchi CVS: Regular rate and rhythm, normal S1 and S2, no gallops, no murmurs, no rubs ABDOMEN: Soft, nontender. No hepatosplenomegaly, normal bowel sounds, no guarding or rigidity. EXTREMITIES: No clubbing, no edema, no cyanosis, 2+ pulses and upper and lower extremities. MUSCULOSKELETAL: Muscle strength and tone normal. SPINE: No scoliosis or deformity SKIN: No rashes CENTRAL NERVOUS SYSTEM: Awake, cooperative. No focal deficits, tone is normal in all 4 extremities. - Labs CBC & Chem 7: 07/05/21 10:50 07/05/21 03:19 Labs: Abnormal Lab Results - Last 24 Hours (Table) 07/04/21 07/04/21 07/04/21 Range/Units 07:17 07:17 14:17 RBC 1.29 L (4.30-5.90) m/uL Hgb 4.0 L* (13.0-17.5) gm/dL Hct 13.6 L* (39.0-53.0) % MCV 105.0 H (80.0-100.0) fL MCHC 29.7 L (31.0-37.0) g/dL RDW 19.2 H (11.5-15.5) % Lymphocytes # 0.5 L (1.0-4.8) k/uL Sodium (137-145) mmol/L Chloride (98-107) mmol/L Carbon Dioxide (22-30) mmol/L BUN (9-20) mg/dL Creatinine (0.66-1.25) mg/dL Glucose (74-99) mg/dL POC Glucose (mg/dL) (75-99) mg/dL Calcium (8.4-10.2) mg/dL Alkaline Phosphatase 40 L (41-126) U/L Total Protein 4.0 L (6.2-8.2) g/dL Albumin 2.6 L (3.8-4.9) g/dL Globulin 1.4 L (1.6-3.3) g/dL Crossmatch 07/04/21 07/04/21 07/04/21 Range/Units 14:17 17:54 20:25 RBC (4.30-5.90) m/uL Hgb (13.0-17.5) gm/dL Hct (39.0-53.0) % MCV (80.0-100.0) fL MCHC (31.0-37.0) g/dL RDW (11.5-15.5) % Lymphocytes # (1.0-4.8) k/uL Sodium (137-145) mmol/L Chloride (98-107) mmol/L Carbon Dioxide (22-30) mmol/L BUN (9-20) mg/dL Creatinine (0.66-1.25) mg/dL Glucose (74-99) mg/dL POC Glucose (mg/dL) 178 H 147 H (75-99) mg/dL Calcium (8.4-10.2) mg/dL Alkaline Phosphatase (41-126) U/L Total Protein (6.2-8.2) g/dL Albumin (3.8-4.9) g/dL Globulin (1.6-3.3) g/dL Crossmatch See Detail 07/05/21 07/05/21 07/05/21 Range/Units 03:19 03:19 05:58 RBC 1.82 L (4.30-5.90) m/uL Hgb 5.7 L* D (13.0-17.5) gm/dL Hct 17.7 L* (39.0-53.0) % MCV (80.0-100.0) fL MCHC (31.0-37.0) g/dL RDW 20.4 H (11.5-15.5) % Lymphocytes # (1.0-4.8) k/uL Sodium 132 L (137-145) mmol/L Chloride 90 L (98-107) mmol/L Carbon Dioxide 39 H (22-30) mmol/L BUN 107 H* (9-20) mg/dL Creatinine 1.50 H (0.66-1.25) mg/dL Glucose 124 H (74-99) mg/dL POC Glucose (mg/dL) 143 H (75-99) mg/dL Calcium 7.8 L (8.4-10.2) mg/dL Alkaline Phosphatase (41-126) U/L Total Protein (6.2-8.2) g/dL Albumin (3.8-4.9) g/dL Globulin (1.6-3.3) g/dL Crossmatch 07/05/21 07/05/21 Range/Units 10:50 11:57 RBC 2.12 L (4.30-5.90) m/uL Hgb 6.5 L* (13.0-17.5) gm/dL Hct 20.0 L (39.0-53.0) % MCV (80.0-100.0) fL MCHC (31.0-37.0) g/dL RDW 21.0 H (11.5-15.5) % Lymphocytes # 0.6 L (1.0-4.8) k/uL Sodium (137-145) mmol/L Chloride (98-107) mmol/L Carbon Dioxide (22-30) mmol/L BUN (9-20) mg/dL Creatinine (0.66-1.25) mg/dL Glucose (74-99) mg/dL POC Glucose (mg/dL) 131 H (75-99) mg/dL Calcium (8.4-10.2) mg/dL Alkaline Phosphatase (41-126) U/L Total Protein (6.2-8.2) g/dL Albumin (3.8-4.9) g/dL Globulin (1.6-3.3) g/dL Crossmatch Assessment and Plan Assessment: 1 Acute altered mental status of unclear etiology, urine drug screen positive for methamphetamines and marijuana, hyponatremia, hypoxemia. Improved. Awake and alert today. 2 Acute hypoxemic respiratory failure secondary to suspected congestive heart failure, COPD exacerbation, early infiltrates and possible apiration pneumonia here chest x-ray showing improvement in the left lung base. Continued consolidation in the right lower lobe. On 3 L nasal cannula now. 3 Hyponatremia suspect secondary to daily alcohol use in the improved, currently 132 4 Acute renal failure suspect secondary to dehydration, improved with a creatinine of 1.50 5 Thrombocytopenia secondary to daily alcohol use improved currently 209,000 6 Daily heavy alcohol use 7 Marijuana use 8 Chronic tobacco dependence 9 Acute anemia requiring 3 units of packed red blood cells. Current hemoglobin 6.5. Stool for occult blood positive Plan: The patient was seen and evaluated Status post 3 units of packed red blood cells Remains anemic with a hemoglobin of 6.5 Surgical services consulted More awake and alert, cooperative Titrate down the FiO2 as tolerated Remains on solu Cortef Continue bronchodilators Nicoderm patch in place I, the cosigning physician, performed a history & physical examination of the patient. Lungs sounds bibasilar crackles. Maintaining good O2 saturations in the 90s on 3 L/m per nasal cannula. I discussed the assessment and plan of care with my nurse practitioner, Tiffanie Marr. I attest to the above note as dictated by her.
--- NOTE | 2021-07-05 14:32 | P.GSCN ---
History of Present Illness Consult date: 07/05/21 History of present illness: CHIEF COMPLAINT: Acute anemia HISTORY OF PRESENT ILLNESS: The patient is a 61 year old male admitted to 06/26/2021 after being found unresponsive. Patient has been hospitalized for the last 9 days. Patient has history of heavy alcohol abuse. Additional workup demonstrated new onset atrial fibrillation. Patient was admitted and placed on blood thinner. Hemoglobin on admission was 12.7. Sodium on admission was also low at 118. During admission, patient had a recheck of hemoglobin down to 4.0. He had no obvious signs of bleeding during admission until he became hypotensive. Repeat labs confirmed acute anemia. General surgery is consulted for acute anemia hemoglobin down to 4.0. He has received 3 units of blood with hemoglobin up to 6.5. He is resting comfortably without any active complaints. PAST MEDICAL HISTORY: See list and reviewed PAST SURGICAL HISTORY: See list and reviewed MEDICATIONS: See list and reviewed ALLERGIES: See list and reviewed SOCIAL HISTORY: See list and reviewed. Has tobacco abuse disorder including marijuana use. FAMILY HISTORY: See list and reviewed REVIEW OF ORGAN SYSTEMS: CONSTITUTIONAL: No fevers or chills. Has obesity. BMI 32.3. EYES: Denies any trouble with vision. No glasses. HEENT: No difficulties with hearing. No nosebleeds. No difficulty swallowing. RESPIRATORY: Has chronic obstructive pulmonary disease. CARDIOVASCULAR: New atrial fibrillation with rapid ventricular response. Has hypertensive heart disease. GASTROINTESTINAL: Has heavy alcohol abuse GENITOURINARY: Denies any blood in urine or increased urinary frequency. NEUROLOGICAL: Denies any numbness or tingling along the distal extremities. No seizure disorders or headaches. MUSCULOSKELETAL: Denies any back pain, stiffness or joint arthritis. SKIN: No current skin cancer. No rash. PSYCHIATRIC: Has depression. Has alcoholism. ENDOCRINE: Denies current thyroid disorders. Denies any blood sugar glucose intolerance. HEME/LYMPHATIC: Denies any lumps and bumps around the neck. No recent deep venous thrombosis. ALLERGY/IMMUNOLOGY: Patient was replaced on blood thinner, Eliquis BREAST: Denies current breast lumps, pain or nipple discharge. PHYSICAL EXAM: VITALS: Reviewed CONSTITUTIONAL: Well developed and in no acute distress. EYES: Conjuctivae without sclera icterus. Extraocular movements grossly intact. HEAD, EARS, NOSE, THROAT: Moist buccal mucosa. Head is atraumatic, normocephalic. Hears conversational speech. No nasal drainage. NECK: Supple. No JV distention. No thyroidomegaly. RESPIRATORY: Non-labored respirations and equal bilateral excursions. No gross wheezes. CARDIOVASCULAR: Palpable 2+ radial pulses. ABDOMEN: No peritonitis LYMPH: No obvious neck lymphadenopathy. MUSCULOSKELETAL: No clubbing cyanosis. SKIN: Warm and well perfused with good skin turgor. NEUROLOGIC: Cranial nerves II through XII grossly intact. No focal or lateralizing signs. PSYCH: Difficult to awake. CLINCAL LABS: Reviewed. Creatinine on admission 2.03 improved to 1.1. Now elevated to 1.5. Hemoglobin on admission 12.4 down to 4.0 yesterday. Now up to 6.5 after 3 units of blood. ASSESSMENT: 1. Acute blood loss anemia status post blood transfusion, 3 units 2. Anticoagulant exposure 3. History of heavy alcohol abuse disorder PLAN: 1. Recommend upper endoscopy for gastritis, esophagitis, esophageal ulcer 2. May benefit from CT of the abdomen and pelvis for assessment of esophageal varices ADVANCE DIRECTIVE: Thank you for this kind consultation. Past Medical History Past Medical History: Atrial Fibrillation, COPD, Hypertension History of Any Multi-Drug Resistant Organisms: None Reported Past Surgical History: No Surgical Hx Reported Past Anesthesia/Blood Transfusion Reactions: No Reported Reaction Past Psychological History: Depression Smoking Status: Current every day smoker Past Alcohol Use History: Abuse, Daily, Heavy Additional Past Alcohol Use History / Comment(s): Patient states he drinks a fifth of vodka daily Past Drug Use History: Marijuana Additional Drug Use History / Comment(s): Patient states he does not do meth, but the people he lives with do. Medications and Allergies Home Medications Medication Instructions Recorded Confirmed Type Unable To Assess [Unable to Assess] 06/26/21 06/26/21 History Allergies Allergy/AdvReac Type Severity Reaction Status Date / Time No Known Allergies Allergy Verified 06/26/21 11:56 Surgical - Exam Vital Signs Temp Pulse Resp BP Pulse Ox 97.8 F 106 H 15 107/78 89 L 06/26/21 10:25 06/26/21 10:25 06/26/21 10:25 06/26/21 10:25 06/26/21 10:25 Results - Labs 07/05/21 10:50 07/05/21 03:19 Abnormal Lab Results - Last 24 Hours (Table) 07/04/21 07/04/21 07/04/21 Range/Units 07:17 07:17 14:17 RBC 1.29 L (4.30-5.90) m/uL Hgb 4.0 L* (13.0-17.5) gm/dL Hct 13.6 L* (39.0-53.0) % MCV 105.0 H (80.0-100.0) fL MCHC 29.7 L (31.0-37.0) g/dL RDW 19.2 H (11.5-15.5) % Lymphocytes # 0.5 L (1.0-4.8) k/uL Sodium (137-145) mmol/L Chloride (98-107) mmol/L Carbon Dioxide (22-30) mmol/L BUN (9-20) mg/dL Creatinine (0.66-1.25) mg/dL Glucose (74-99) mg/dL POC Glucose (mg/dL) (75-99) mg/dL Calcium (8.4-10.2) mg/dL Alkaline Phosphatase 40 L (41-126) U/L Total Protein 4.0 L (6.2-8.2) g/dL Albumin 2.6 L (3.8-4.9) g/dL Globulin 1.4 L (1.6-3.3) g/dL Crossmatch 07/04/21 07/04/21 07/04/21 Range/Units 14:17 17:54 20:25 RBC (4.30-5.90) m/uL Hgb (13.0-17.5) gm/dL Hct (39.0-53.0) % MCV (80.0-100.0) fL MCHC (31.0-37.0) g/dL RDW (11.5-15.5) % Lymphocytes # (1.0-4.8) k/uL Sodium (137-145) mmol/L Chloride (98-107) mmol/L Carbon Dioxide (22-30) mmol/L BUN (9-20) mg/dL Creatinine (0.66-1.25) mg/dL Glucose (74-99) mg/dL POC Glucose (mg/dL) 178 H 147 H (75-99) mg/dL Calcium (8.4-10.2) mg/dL Alkaline Phosphatase (41-126) U/L Total Protein (6.2-8.2) g/dL Albumin (3.8-4.9) g/dL Globulin (1.6-3.3) g/dL Crossmatch See Detail 07/05/21 07/05/21 07/05/21 Range/Units 03:19 03:19 05:58 RBC 1.82 L (4.30-5.90) m/uL Hgb 5.7 L* D (13.0-17.5) gm/dL Hct 17.7 L* (39.0-53.0) % MCV (80.0-100.0) fL MCHC (31.0-37.0) g/dL RDW 20.4 H (11.5-15.5) % Lymphocytes # (1.0-4.8) k/uL Sodium 132 L (137-145) mmol/L Chloride 90 L (98-107) mmol/L Carbon Dioxide 39 H (22-30) mmol/L BUN 107 H* (9-20) mg/dL Creatinine 1.50 H (0.66-1.25) mg/dL Glucose 124 H (74-99) mg/dL POC Glucose (mg/dL) 143 H (75-99) mg/dL Calcium 7.8 L (8.4-10.2) mg/dL Alkaline Phosphatase (41-126) U/L Total Protein (6.2-8.2) g/dL Albumin (3.8-4.9) g/dL Globulin (1.6-3.3) g/dL Crossmatch 07/05/21 07/05/21 Range/Units 10:50 11:57 RBC 2.12 L (4.30-5.90) m/uL Hgb 6.5 L* (13.0-17.5) gm/dL Hct 20.0 L (39.0-53.0) % MCV (80.0-100.0) fL MCHC (31.0-37.0) g/dL RDW 21.0 H (11.5-15.5) % Lymphocytes # 0.6 L (1.0-4.8) k/uL Sodium (137-145) mmol/L Chloride (98-107) mmol/L Carbon Dioxide (22-30) mmol/L BUN (9-20) mg/dL Creatinine (0.66-1.25) mg/dL Glucose (74-99) mg/dL POC Glucose (mg/dL) 131 H (75-99) mg/dL Calcium (8.4-10.2) mg/dL Alkaline Phosphatase (41-126) U/L Total Protein (6.2-8.2) g/dL Albumin (3.8-4.9) g/dL Globulin (1.6-3.3) g/dL Crossmatch Diabetes panel 07/04/21 07/05/21 Range/Units 07:17 03:19 Sodium 132 L (137-145) mmol/L Potassium 4.3 (3.5-5.1) mmol/L Chloride 90 L (98-107) mmol/L Carbon Dioxide 39 H (22-30) mmol/L BUN 107 H* (9-20) mg/dL Creatinine 1.50 H (0.66-1.25) mg/dL Glucose 124 H (74-99) mg/dL Calcium 7.8 L (8.4-10.2) mg/dL AST 24 (14-35) U/L ALT 27 (10-49) U/L Alkaline Phosphatase 40 L (41-126) U/L Total Protein 4.0 L (6.2-8.2) g/dL Albumin 2.6 L (3.8-4.9) g/dL Calcium panel 07/04/21 07/05/21 Range/Units 07:17 03:19 Calcium 7.8 L (8.4-10.2) mg/dL Albumin 2.6 L (3.8-4.9) g/dL Pituitary panel 07/05/21 Range/Units 03:19 Sodium 132 L (137-145) mmol/L Potassium 4.3 (3.5-5.1) mmol/L Chloride 90 L (98-107) mmol/L Carbon Dioxide 39 H (22-30) mmol/L BUN 107 H* (9-20) mg/dL Creatinine 1.50 H (0.66-1.25) mg/dL Glucose 124 H (74-99) mg/dL Calcium 7.8 L (8.4-10.2) mg/dL Adrenal panel 07/04/21 07/05/21 Range/Units 07:17 03:19 Sodium 132 L (137-145) mmol/L Potassium 4.3 (3.5-5.1) mmol/L Chloride 90 L (98-107) mmol/L Carbon Dioxide 39 H (22-30) mmol/L BUN 107 H* (9-20) mg/dL Creatinine 1.50 H (0.66-1.25) mg/dL Glucose 124 H (74-99) mg/dL Calcium 7.8 L (8.4-10.2) mg/dL Total Bilirubin 0.30 (0.30-1.20) mg/dL AST 24 (14-35) U/L ALT 27 (10-49) U/L Alkaline Phosphatase 40 L (41-126) U/L Total Protein 4.0 L (6.2-8.2) g/dL Albumin 2.6 L (3.8-4.9) g/dL Assessment and Plan (1) Acute blood loss anemia (ABLA) Current Visit: Yes Status: Acute Code(s): D62 - ACUTE POSTHEMORRHAGIC ANEMIA SNOMED Code(s): 886551195 (2) Atrial fibrillation Current Visit: Yes Status: Acute Code(s): I48.91 - UNSPECIFIED ATRIAL FIBRILLATION SNOMED Code(s): 36099287 (3) COPD (chronic obstructive pulmonary disease) Current Visit: No Status: Acute Code(s): J44.9 - CHRONIC OBSTRUCTIVE PULMONARY DISEASE, UNSPECIFIED SNOMED Code(s): 98010642
[2021-07-05 16:52] LABS: Glucose,Whole Blood 135 mg/dL (75-99)
[2021-07-05 20:09] LABS: Glucose,Whole Blood 190 mg/dL (75-99)
[2021-07-05] MEDS: MIRTAZAPINE 15 MG TAB PO SCH (20:31)
[2021-07-05] MEDS: PANTOPRAZOLE 40 MG/10 ML VIAL IVP SCH (20:32)
[2021-07-05] MEDS: INSULIN DETEMIR (LEVEMIR) 100 UNIT/ML SYR SQ SCH (20:42)
[2021-07-06] MEDS: ACETAMINOPHEN TAB 325 MG TAB PO PRN ×3 (01:42→14:44)
[2021-07-06 06:23] LABS: Glucose,Whole Blood 236 mg/dL (75-99)
[2021-07-06] MEDS: INSULIN ASPART (NovoLOG) 100 UNIT/ML VIAL SQ SCH ×4 (06:26→21:16)
[2021-07-06] MEDS: IPRATROPIUM-ALBUTEROL 3 ML NEB INHALATION SCH ×4 (07:29→21:04)
[2021-07-06] MEDS ORDERED: LIDOCAINE 1% INJ 10MG/ML (20 ML MDV) ONE (07:34)
[2021-07-06] MEDS ORDERED: PROPOFOL 10 MG/ML 20 ML VIAL IV ONE (07:34)
[2021-07-06] MEDS ORDERED: SODIUM CHLORIDE 0.9% 500 ML 500 ML IV ONE (07:35)
--- NOTE | 2021-07-06 07:50 | P.PCN ---
Date of Procedure: 07/06/21 Description of Procedure: PREOPERATIVE DIAGNOSIS: Acute gastrointestinal bleeding Acute blood loss anemia hemoglobin down 12.0-4.0 Status post blood transfusions Anticoagulant use POSTOPERATIVE DIAGNOSIS: Acute gastric ulcerations of bleeding Acute duodenal ulceration with bleeding Acute severe erosive esophagitis from candidiasis Gastroesophageal reflux disease OPERATION: Esophagogastroduodenoscopy with biopsies of the mid esophagus and antrum SURGEON: Lauren Reyes MD ANESTHESIA: MAC. INDICATIONS: The patient is a 61-year-old male who during hospitalization hemoglobin dropped from 12.0-4.0. He was given 3 units of blood. Benefits and risks of the procedure were described. Informed consent was obtained. DESCRIPTION: The patient was brought into the endoscopy suite and laid in the left lateral decubitus position. An Olympus gastroscope was passed along the posterior oropharynx down to the distal esophagus where the squamocolumnar junction was encountered at 41 cm from the incisors. The stomach was entered and no bile reflux was found. Additional findings are listed below. Biopsies with cold forceps were obtained of the antrum. The first through third portion of the duodenum was examined with fresh blood clot found along the second portion of the duodenum. Retroflexion of the scope confirmed Hill grade 3 lower esophageal valve. The squamocolumnar junction demonstrated LA grade B erosive esophagitis. The stomach was desufflated. The patient tolerated the procedure well. FINDINGS: Squamocolumnar junction 41 cm from the incisors. Diaphragmatic hiatus at 41 cm. Hill grade 3 lower esophageal valve. LA grade B erosive esophagitis. Acute severe candidiasis of the esophagus with biopsies obtained Acute gastric ulceration along the antrum with recent bleeding, punctate Acute duodenal ulceration with fresh clot second portion of the duodenum RECOMMENDATIONS: 1. Await biopsies for candidiasis esophagitis 2. Carafate 1 g 3 times daily 3. Protonix 40 mg twice daily 4. Liquid diet 5. Avoid all anticoagulation due to severe acute blood loss anemia and multiple ulcerations and stomach and duodenum
[2021-07-06] MEDS: MIDODRINE 5 MG TAB PO SCH ×3 (09:10→16:37)
[2021-07-06] MEDS: SERTRALINE 50 MG TAB PO SCH (09:13)
[2021-07-06] MEDS: METOPROLOL TARTRATE 12.5 MG TAB PO SCH ×2 (09:13→19:33)
[2021-07-06] MEDS: NICOTINE 21MG/24HR PATCH TRANSDERM SCH (09:13)
[2021-07-06] MEDS: HYDROCORTISONE SUCCINATE 100 MG/2 ML VIAL IV SCH (09:13)
[2021-07-06] MEDS: FUROSEMIDE 40 MG TAB PO SCH (09:14)
[2021-07-06] MEDS: PANTOPRAZOLE 40 MG/10 ML VIAL IVP SCH ×2 (09:14→19:33)
[2021-07-06] MEDS: DILTIAZEM CD 120 MG CAP.ER.24H PO SCH ×2 (09:14→19:33)
--- NOTE | 2021-07-06 09:19 | P.PN ---
Subjective Patient is seen in follow-up for hyponatremia and acute kidney injury. Sodium level 132 yesterday. Creatinine 1.5 yesterday. Has a Zaragoza catheter. Nonoliguric. Denies any active bleeding today. He underwent EGD this morning which showed acute gastric and duodenal bleeding ulcers. Vital signs stable. Gen: The patient appeared well nourished and normally developed. HEENT: Head exam is unremarkable. LUNGS: Breath sounds decreased. HEART: Rate and Rhythm are regular. ABDOMEN: Soft, no distention. EXTREMITITES: Trace edema. Objective - Vital Signs Vital signs: Vital Signs Temp 97.3 F L 07/06/21 04:00 Pulse 81 07/06/21 04:00 Resp 18 07/06/21 04:00 BP 120/80 07/06/21 04:00 Pulse Ox 95 07/06/21 04:00 Intake & Output 07/05/21 07/06/21 07/06/21 18:59 06:59 18:59 Intake Total 279 120 200 Output Total 2100 750 Balance -1821 -630 200 Intake: IV 200 Oral 120 Blood Product 279 Rc Pheresis 2 As3 Unit 279 [id number] Output: Urine 2100 750 Other: Voiding Method Indwelling Catheter Indwelling Catheter - Labs CBC & Chem 7: 07/05/21 10:50 07/05/21 03:19 Labs: Abnormal Lab Results - Last 24 Hours (Table) 07/04/21 07/05/21 07/05/21 Range/Units 14:17 10:50 11:57 RBC 2.12 L (4.30-5.90) m/uL Hgb 6.5 L* (13.0-17.5) gm/dL Hct 20.0 L (39.0-53.0) % RDW 21.0 H (11.5-15.5) % Lymphocytes # 0.6 L (1.0-4.8) k/uL POC Glucose (mg/dL) 131 H (75-99) mg/dL Crossmatch See Detail 07/05/21 07/05/21 07/06/21 Range/Units 16:51 20:05 06:21 RBC (4.30-5.90) m/uL Hgb (13.0-17.5) gm/dL Hct (39.0-53.0) % RDW (11.5-15.5) % Lymphocytes # (1.0-4.8) k/uL POC Glucose (mg/dL) 135 H 190 H 236 H (75-99) mg/dL Crossmatch Assessment and Plan Plan: Assessment: 1. Hypervolemic hyponatremia improved with diuresis. Sodium level 132 yesterday. 2. Volume overload. Improved with diuresis. 3. Alcohol abuse. 4. Acute kidney injury secondary to hemodynamic ATN and acute blood loss anemia. Creatinine 1.5 yesterday.. Elevated BUN secondary to GI bleed as well as steroids. 5. Metabolic alkalosis from diuresis. 6. Acute GI bleed receiving blood transfusions. He did receive IV DDAVP July 04. Eliquis stopped. Surgery following. EGD done today showed bleeding duodenal and gastric ulcerations. 7. Hypotension due to severe anemia. Cortisol level not low. Better. Plan: Maintain oral Lasix. Encouraged oral intake. Avoid nephrotoxins. Continue to monitor renal function and urine output. Maintain midodrine - hold for systolic blood pressure above 110. Follow-up morning labs.
[2021-07-06 10:56] LABS: Calcium 8.1 mg/dL (8.4-10.2); Magnesium 1.9 mg/dL (1.6-2.3); Potassium 3.5 mmol/L (3.5-5.1)
--- NOTE | 2021-07-06 11:29 | ECHOF ---
Referral Reason:Evaluate structure and function of heart MEASUREMENTS -------- HEIGHT: 152.4 cm WEIGHT: 101.6 kg BP: RVIDd: 4.9 cm (< 3.3) IVSd: 1.4 cm (0.6 - 1.1) LVIDd: 5.6 cm (3.9 - 5.3) LVPWd: 1.8 cm (0.6 - 1.1) IVSs: 1.9 cm LVIDs: 4.3 cm LVPWs: 2.0 cm LA Diam: 4.8 cm (2.7 - 3.8) Ao Diam: 3.3 cm (2.0 - 3.7) AV Cusp: 1.9 cm (1.5 - 2.6) LA Diam: 4.4 cm (2.7 - 3.8) MV EXCURSION: 28.438 mm (> 18.000) MV EF SLOPE: 125 mm/s (70 - 150) EPSS: 0.6 cm RAP: 15.00 mmHg RVSP: 76.53 mmHg FINDINGS -------- Undetermined rhythm. This was a technically adequate study. The left ventricular size is normal. There is mild concentric left ventricular hypertrophy. Overa ll left ventricular systolic function is low-normal with, an EF between 50 - 55 %. The right ventricle is severely enlarged. The right ventricular septal wall is flattened in diastol e and systole which is consistent with right ventricular volume and pressure overload. The left atrium is markedly dilated. The right atrial size is normal. There is mild aortic valve sclerosis. There is no evidence of aortic regurgitation. Mild mitral regurgitation is present. Moderate to severe tricuspid regurgitation present. There is severe pulmonary hypertension. The r ight ventricular systolic pressure, as measured by Doppler, is 76.53mmHg. There is no pulmonic regurgitation present. The aortic root size is normal. There is a trivial pericardial effusion present. CONCLUSIONS -------- 1. The left ventricular size is normal. 2. There is mild concentric left ventricular hypertrophy. 3. Overall left ventricular systolic function is low-normal with, an EF between 50 - 55 %. 4. The right ventricle is severely enlarged. 5. The right ventricular septal wall is flattened in diastole and systole which is consistent with r ight ventricular volume and pressure overload. 6. The left atrium is markedly dilated. 7. The right atrial size is normal. 8. There is mild aortic valve sclerosis. 9. Mild mitral regurgitation is present. 10. Moderate to severe tricuspid regurgitation present. 11. There is severe pulmonary hypertension. 12. The right ventricular systolic pressure, as measured by Doppler, is 76.53mmHg. 13. There is no pulmonic regurgitation present. 14. The aortic root size is normal. 15. There is a trivial pericardial effusion present. CHILD ATTENDANT: Lisbeth Thurman RDCS
[2021-07-06 11:54] LABS: Glucose,Whole Blood 128 mg/dL (75-99)
[2021-07-06] MEDS: SUCRALFATE 1 GM TAB PO SCH ×2 (12:27→16:37)
--- NOTE | 2021-07-06 12:48 | XR ---
EXAMINATION TYPE: XR chest 1V portable DATE OF EXAM: 07/06/2021 Comparison: 06/30/2021 Clinical History: 61-year-old male pneumonia Findings: Heart remains borderline enlarged. There are small bilateral pleural effusions, slightly increased no w on the left. Continued right basilar opacity. Old healed left lateral fifth rib fracture deformity. Increased patchy left basilar opacity. Impression: 1. Suspected new small left effusion with slight worsening in patchy left basilar atelectasis and/or consolidation. 2. Continued extensive right lower lobe consolidation. Follow up will be needed to ensure clearance o f this finding and to exclude the possibility of lobar collapse secondary to a central obstructing le monica. Possible small right effusion.
[2021-07-06 12:55] LABS: Anisocytosis Moderate; HCT 20.3 % (39.0-53.0); Hypochromasia Moderate; MCH 31.1 pg (25.0-35.0); MCHC 31.9 g/dL (31.0-37.0); MCV 97.4 fL (80.0-100.0); Macrocytosis Moderate; Mean Platelet Volume 8.7; Platelet Count 257 k/uL (150-450); Poikilocytosis Slight; RBC 2.08 m/uL (4.30-5.90); RDW 21.9 % (11.5-15.5); WBC 9.6 k/uL (3.8-10.6)
[2021-07-06 13:00] LABS: HGB 6.5 gm/dL (13.0-17.5)
--- NOTE | 2021-07-06 14:21 | P.PN ---
Subjective Progress Note Date: 07/06/21 61 year old male with history of hypertension, atrial fibrillation, atrial flutter, alcohol abuse, COPD who has been seen multiple times in the ER for alcohol intoxication and suicidal ideation in the past was brought in by EMS as his roommate found him unresponsive. Patient drinks daily half a gallon. Patient evaluated in the ER. He would wake up intermittently say a few words and go back to sleep. Patient appears trunk, sees he wants to and appears that he is seeing things in the room as he is pointing at lopes. Patient is unable to maintain eye contact as he drifts into sleep. She received breathing treatment on his way to the hospital and also endorses before he came to the hospital. He received another nebulizing treatment before I evaluated him. Patient continues to wheeze significantly on evaluation. He denies any cough or shortness of breath or chest pain. Patient was afebrile tachycardic at 106, respiratory rate of 15 blood pressure 107/78 oxygen saturation 89% on room air improved to 97% on 2 L. EKG was obtained showed A. fib with rapid response of response at 120 CT of the brain was negative for any acute abnormality does have acute mastoiditis. Chest x-ray suggestive of mild congestive heart failure. Labs are reviewed patient has a WBC of 4.2 hemoglobin 12.7 sodium 118 chloride 82 bicarb 22 BUN 37 creatinine is 0.03. Ammonia level is a 25 alcohol level 218Patient is alcohol intoxication with suicidal ideation. Sitter at bedside ordered. We will discontinue IV fluids as patient appears volume overloaded. Solu-Medrol was initiated at 60 IV every 6 with DuoNeb's with pulmonary consult. Sodium levels with the acetaminophen urine osmolality were ordered. Nephrology consulted for management of sodium. 06/27 patient evaluated bedside is alert and answer questions appropriately. Sitter at bedside. Patient is currently 84% on 3 L of oxygen. Repeat chest x- ray suggestive of right lower lid and a troponin airspace opacity along with le ft lower airspace opacity with developing infectious process with COPD changes 06/28 patient evaluated at bedside lying comfortably in bed. Patient denies any chest pain or shortness of breath. Vitals are stable patient continues from and hyponatremia with a repeat sodium 122 potassium 5.5 chloride 88 BUN 72 creatinine 1.56. Serum osmolarity continues to remain high 305 continue Lasix 40 IV twice a day. Solu-Medrol reduced to every 8 8 hours 60 mg. Nephrology recommendation appreciated 06/29: Repeat chest x-ray reveals cardiomegaly with right greater than left bilateral lower lung acute infiltrates and/or atelectasis with right-sided volume loss remain present. No significant change from yesterday. Patient is followed closely by nephrology with plan to continue IV Lasix encourage oral protein intake and repeat labs tomorrow. Patient has seen by psychiatry with expectation of some cognitive clearing so they can expand the psychiatric assessment. Patient is still quite confused unable to answer questions and follow commands. He has been afebrile, heart rate 88, blood pressure 106/59, pulse ox 97% on 4 L nasal cannula. Sodium 128, potassium 4.0, chloride 85, CO2 38, BUN 63 creatinine 1.32. Blood sugars are running between 100 4891. TSH 1.250. Urinalysis negative for infection. Sodium 38. 06/30: The patient is awake this morning. He knows where he is at. He states he normally drinks a fifth of liquor per day. He is able to verbalize that he would like to have it inhaler when he leaves the hospital. Patient is followed by pulmonary medicine Repeat chest x-ray reveals improved aeration at the left base. Continued extensive consolidation or atelectasis of the right lower lobe. Patient has been afebrile, heart rate 79, blood pressure 126/76, pulse ox 92% on 3 L. patient monitor is atrial fibrillation with controlled rate. Repeat blood work reveals hemoglobin 9.7, platelet count 129. Sodium 132, potassium 3.1, chloride 89, CO2 39, BUN 60 and creatinine 1.03. Blood sugars are running between 172 and 222. Patient is having good urine output. 07/01: Patient's mental status is improving. He is able to answer questions appropriately. Patient has been afebrile, heart rate in the 80s to 100s, blood pressure 118/60, pulse ox 90% on 3 L nasal cannula. Capillary blood glucose running between 160 and 358. Levemir 10 units at bedtime added. Zaragoza catheter remains in place. Gem Setter recommended continuing IV Lasix encourage oral protein intake.. 07/02: Patient is verbalizing that he still not feeling well enough to go home today. He is awake alert and oriented 3. His mental status is significantly improved. His plan is to return to his current living situation and social work has been working with him on this. Patient apparently has an oxygen concentrator but does not use it. We will be making arrangements for home oxygen therapy. He is pulse oxing 97% on 3 L. Heart rate is running in the 100 and teens to 121. Blood pressure 114/51. He has been afebrile. Low-dose Lopressor will be added to Cardizem for rate control for atrial fibrillation. Patient has had no signs of bleeding, eliquis will be started. 07/03: Patient is having drop in blood pressure with lightheadedness. This morning blood pressure 1 was 78/42. We've ordered a fluid bolus of 250 ML's due to history of heart failure, hold Cardizem, Lasix, metoprolol. Noted the patient had been taken off Solu-Medrol on 07/01 by pulmonary medicine. Cortisone level be checked and patient will be started on Solu-Cortef 100 mg IV every 8 hours. Repeat blood work reveals sodium 132, potassium 4.1, chloride 87, CO2 38, BUN 100 and creatinine 1.13. Blood sugars are running between 117 and 155. No new plan from pulmonary medicine. Patient has been seen by psychiatry with recommendations to monitor for alcohol withdrawal with Ativan when necessary on [facility] protocol. Zoloft 50 mg daily was added and melatonin 5 mg at bedtime. 07/06: Over the weekend, patient developed GI bleed, eliquis was placed on hold and patient underwent EGD with Dr. Kaiser finding acute gastric ulcerations and bleeding, acute duodenal ulcerations with bleeding, acute severe erosive esophagitis from candidiasis, gastroesophageal reflux disease. Biopsies are pending. Patient was also seen by cardiology for A. fib with episode of RVR. Solu Cortef will be discontinued. Hemoglobin came back today at 6.5 and patient will be transfused 1 unit of packed RBCs. Echocardiogram reveals EF of 50-55%, mild mitral regurgitation, moderate to severe tricuspid regurgitation, severe pulmonary hypertension with RVSP 76.53 mmHg. Chest x-ray reveals suspected new small left effusion with slight worsening in patchy left basilar atelectasis and/or consolidation. Continued extensive right lower lobe consolidation. Follow-up to ensure clearance of this finding to exclude possibility of lobar collapse secondary to central obstructing lesion. Possible small right effusion. Patient is also followed by pulmonary medicine and nephrology. ROS Constitutional: Denies chills, Denies fever, reports dizziness, reports lightheadedness, endorses lethargy Denies poor appetite, endorses weakness, Denies weight loss Eyes: denies decreased vision, denies diplopia, denies discharge Ears: deny: decreased hearing Ears, nose, mouth and throat: Denies dental pain, Denies headache, Denies nasal discharge, Denies nose pain Cardiovascular: Denies chest pain, Denies decreased exercise tolerance, Denies edema, Denies high blood pressure, Denies irregular heart beat, Denies palpitations, Denies paroxysmal nocturnal dyspnea, Denies rapid heart beat, Denies shortness of breath Respiratory: Endorses dyspnea, Denies home oxygen, Denies wheezing Gastrointestinal: Denies abdominal pain, Denies change in bowel habits, Denies coffee ground emesis, Denies early satiety, Denies excessive gas, Denies h eartburn, Denies hematemesis, Denies hematochezia, Denies loss of appetite, Denies nausea, Denies vomiting Genitourinary: Denies dysuria, Denies flank pain, Denies kidney stones, Denies menorrhagia, Denies urgency, Denies urinary frequency Musculoskeletal: Denies gait dysfunction, Denies limitation of motion, Denies morning stiffness, Denies muscle cramps Integumentary: Denies rash, Denies wounds, Denies brittle nails, Denies change in hair/nails, Denies darkening of skin Neurological: Denies balance difficulties, Denies change in speech, Denies double vision, noted mental status change, noted gait dysfunction, Denies loss of vision, Denies motor disturbance, Denies numbness, Denies paralysis, Denies paresthesias, Denies seizures Psychiatric: Denies anxiety, Denies depression Endocrine: Denies excessive sweating, Denies excessive thirst, Denies high blood sugars, Denies palpitations Hematologic/Lymphatic: Denies easy bruising, Denies lymphadenopathy Physical exam - Constitutional General appearance: Awake, 61-year-old male, no acute distress noted - EENT Eyes: anicteric sclerae, PERRLA, normal appearance conjunctival injection ENT: hearing grossly normal - Neck Neck: no lymphadenopathy, normal ROM, no other, no rigidity, no stridor, no thyromegaly - Respiratory Respiratory: Decreased air entry with bibasilar Crackles improved wheezing - Cardiovascular Rhythm: Irregularly irregular tachycardic Heart sounds: normal: S1, S2 Abnormal Heart Sounds: no systolic murmur, no diastolic murmur, no rub, no S3 Gallop, no S4 Gallop, no click, no other - Gastrointestinal General gastrointestinal: normal bowel sounds, soft nontender but distended - Integumentary Integumentary: T, peripheral pulses 2+ with less than 2 second capillary refill, purplish discoloration of toes - Neurologic patient is cooperative, does move all extremities - Musculoskeletal Musculoskeletal: Gait could not be assessed strength equal bilaterally - Psychiatric PsychiatriC Alert oriented 3 Assessment and plan #1 acute metabolic encephalopathy secondary to alcohol intoxication and hyponatremia and elevated ammonia levels. Fall precautions. #2 acute alcohol intoxication with alcohol dependence with history of alcohol withdrawal including DTs alcohol withdrawal protocol initiated. Vitamin supplemented. CIWA protocol. #3 acute suicidal thoughts. Psychiatry consult appreciated and patient started on Zoloft and melatonin. #4 thrombocytopenia secondary to alcohol abuse and liver dysfunction continue to monitor hold anticoagulants #5 hyperosmolar hyponatremia secondary to alcohol nephrology consult appreciated. Continue po Lasix 40 mg every 12 hours. #6 acute hypoxic respiratory failure with evidence of aspiration pneumonia, acute diastolic heart failure. Continue I&O monitoring daily weights. Continue DuoNeb treatments #7 acute COPD exacerbation. Continue DuoNeb's as needed for shortness of breath. Sputum culture ordered. Pulmonary consult appreciated #8 microscopic bleed per rectum positive fecal occult hemoglobin stable continue monitor CBC may be related to gastritis secondary to alcohol abuse, Protonix 40 twice daily #9 polysubstance abuse urine drug screen positive for meth and THC. Continue to monitor vitals. EKG negative for any ST or T-wave changes #10 acute kidney injury secondary to AtN. #11 acute A. fib with RVR, chronic persistent. Continue Cardizem CD 120 mg daily. Lopressor 12.5 mg twice daily. #10 acute GI bleed secondary to gastric ulcerations, duodenal ulceration status post blood transfusion, status post EGD. Continue Carafate 1 g 3 times daily, Protonix 40 mg IV push twice daily. #11code status full code #12 DVT eliquis DISCHARG PLAN Home this week Impression and plan of care have been directed as dictated by the signing physician. Leticia Sweet nurse practitioner acting as scribe for signing physician. Objective - Vital Signs Vital signs: Vital Signs Temp 97.7 F 07/06/21 12:00 Pulse 85 07/06/21 12:00 Resp 18 07/06/21 12:00 BP 106/66 07/06/21 12:00 Pulse Ox 98 07/06/21 12:00 Intake & Output 07/05/21 07/06/21 07/06/21 18:59 06:59 18:59 Intake Total 279 120 422 Output Total 2100 750 400 Balance -1821 -630 22 Intake: IV 200 Oral 120 222 Blood Product 279 Rc Pheresis 2 As3 Unit 279 [id number] Output: Urine 2100 750 400 Other: Voiding Method Indwelling Catheter Indwelling Catheter Indwelling Catheter - Labs CBC & Chem 7: 07/06/21 09:40 07/06/21 09:40 Labs: Abnormal Lab Results - Last 24 Hours (Table) 07/05/21 07/05/21 07/06/21 Range/Units 16:51 20:05 06:21 Sodium (137-145) mmol/L Chloride (98-107) mmol/L Carbon Dioxide (22-30) mmol/L BUN (9-20) mg/dL Glucose (74-99) mg/dL POC Glucose (mg/dL) 135 H 190 H 236 H (75-99) mg/dL Calcium (8.4-10.2) mg/dL 07/06/21 07/06/21 Range/Units 09:40 11:51 Sodium 135 L (137-145) mmol/L Chloride 90 L (98-107) mmol/L Carbon Dioxide 41 H* (22-30) mmol/L BUN 82 H (9-20) mg/dL Glucose 101 H (74-99) mg/dL POC Glucose (mg/dL) 128 H (75-99) mg/dL Calcium 8.1 L (8.4-10.2) mg/dL
--- NOTE | 2021-07-06 15:01 | P.PN ---
Subjective Progress Note Date: 07/06/21 HISTORY OF PRESENT ILLNESS: Patient is a very pleasant 61-year-old male with a past medical history of permanent atrial fibrillation, hypertension, hyperlipidemia, COPD with ongoing tobacco dependence., Alcohol abuse, and cannabis use. He was admitted to the hospital on 06/26/21 for acute metabolic encephalopathy secondary to alcohol intoxication, hyponatremia, and elevated ammonia levels. On 07/04/21 patient was noted to have acute blood loss anemia with hemoglobin of 4.3 from previous 9.7 resulting in transfusion of 3 units PRBCs with current hemoglobin of 6.5. We were consulted this morning secondary to history of atrial fibrillation on Coumadin signs of previous echocardiogram report. Previous echocardiogram completed 10/27/20 revealed EF of 50-55% with mild mitral and tricuspid regurgitation and moderate pulmonary hypertension. Patient seen and fully ev aluated at the bedside this morning. Patient somewhat of a poor historian but does report to daily alcohol use/abuse drinking a half a gallon of liquor per day. At time of assessment patient completing third unit of PRBCs since diagnosis of acute blood loss anemia on 07/04/21. Patient currently denies experiencing any headache, lightheadedness, dizziness, chest pain, palpitations, shortness of breath, weakness, or experiencing any numbness/tingling/weakness in his extremities. 07/06/2021 Patient examined at the bedside. Patient denies chest pain or pressure. Denies SOB. He remains in atrial fibrillation with controlled ventricular rate. He underwent EGD revealing multiple ulcerations in the stomach and duodenum. He is currently not anticoagulated. PHYSICAL EXAM: VITAL SIGNS: Reviewed. GENERAL: Well-developed in no acute distress. NECK: Supple. No JVD or thyromegaly LUNGS: Respirations even and unlabored. Lungs diminished bilaterally HEART: Irregular rate and rhythm. S1 and S2 heard. EXTREMITIES: Normal range of motion. No clubbing or cyanosis. Peripheral pulses intact. No lower extremity edema ASSESSMENT: Permanent atrial fibrillation with episode of RVR Hypertension Hyperlipidemia Alcohol abuse reportedly drinking a half a gallon of alcohol daily Acute blood loss anemia Hyponatremia PLAN: Continue current cardiac medications Obtain 2D echo to assess cardiac structure and function Further recommendations pending patient course Nurse practitioner note has been reviewed by physician. Signing provider agrees with the documented findings, assessment, and plan of care. Objective - Vital Signs Vital signs: Vital Signs Temp 97.7 F 07/06/21 12:00 Pulse 85 07/06/21 14:00 Resp 18 07/06/21 14:00 BP 106/66 07/06/21 12:00 Pulse Ox 98 07/06/21 12:00 Intake & Output 07/05/21 07/06/21 07/06/21 18:59 06:59 18:59 Intake Total 523 051 2270 Output Total 2100 750 1150 Balance -1821 -630 52 Intake: IV 200 Oral 120 1002 Blood Product 279 Rc Pheresis 2 As3 Unit 279 [id number] Output: Urine 2100 750 1150 Other: Voiding Method Indwelling Catheter Indwelling Catheter Indwelling Catheter - Labs CBC & Chem 7: 07/06/21 09:40 07/06/21 09:40 Labs: Abnormal Lab Results - Last 24 Hours (Table) 07/04/21 07/05/21 07/05/21 Range/Units 14:17 16:51 20:05 RBC (4.30-5.90) m/uL Hgb (13.0-17.5) gm/dL Hct (39.0-53.0) % RDW (11.5-15.5) % Sodium (137-145) mmol/L Chloride (98-107) mmol/L Carbon Dioxide (22-30) mmol/L BUN (9-20) mg/dL Glucose (74-99) mg/dL POC Glucose (mg/dL) 135 H 190 H (75-99) mg/dL Calcium (8.4-10.2) mg/dL Crossmatch See Detail 07/06/21 07/06/21 07/06/21 Range/Units 06:21 09:40 09:40 RBC 2.08 L (4.30-5.90) m/uL Hgb 6.5 L* (13.0-17.5) gm/dL Hct 20.3 L (39.0-53.0) % RDW 21.9 H (11.5-15.5) % Sodium 135 L (137-145) mmol/L Chloride 90 L (98-107) mmol/L Carbon Dioxide 41 H* (22-30) mmol/L BUN 82 H (9-20) mg/dL Glucose 101 H (74-99) mg/dL POC Glucose (mg/dL) 236 H (75-99) mg/dL Calcium 8.1 L (8.4-10.2) mg/dL Crossmatch 07/06/21 Range/Units 11:51 RBC (4.30-5.90) m/uL Hgb (13.0-17.5) gm/dL Hct (39.0-53.0) % RDW (11.5-15.5) % Sodium (137-145) mmol/L Chloride (98-107) mmol/L Carbon Dioxide (22-30) mmol/L BUN (9-20) mg/dL Glucose (74-99) mg/dL POC Glucose (mg/dL) 128 H (75-99) mg/dL Calcium (8.4-10.2) mg/dL Crossmatch
[2021-07-06] MEDS: SODIUM FERRIC GLUCONAT-SUCROSE 125 MG in SODIUM CHLORIDE 0.9% 100 ML IVPB SCH (15:05)
--- NOTE | 2021-07-06 15:06 | P.PN ---
Subjective Progress Note Date: 07/06/21 61-year-old male patient is being seen in follow-up. The patient is being seen in follow-up on 07/06/2021. The patient underwent endoscopy for profound anemia. Noted the patient got transfused with a total of 3 units of packed RBC and the patient was having dark tarry stool. The patient underwent his EGD and the patient was found to have acute gastric ulceration with bleeding, acute duodenal ulceration with bleeding, acute erosive esophagitis from candidiasis and ongoing issues with acid reflux. The hemoglobin from this day's at 6.5. Another unit of packed RBC will be given to this patient. The patient is also on IV iron. The patient is on IV Protonix 40 mg every 12 hours. Note that over the weekend, the patient developed GI bleeding and Eliquis was placed on hold. The patient was also seen by cardiology regarding atrial fibrillation. The patient is an echocardiogram showing an ejection fraction of 50-55%. There was significant pulmonary hypertension with a PA pressure of 76. The patient is known to have chronic atrial fibrillation. The patient is known to have COPD, hypertension, alcohol abuse and he was seen multiple times in the emergency department for acute alcohol intoxication and suicidal ideation the past and this time around he was brought in by his roommate found them unresponsive and he typically drinks around half a gallon of liquor on a daily basis. Currently is on 3 L of oxygen by nasal cannula with a pulse ox of 98%. His breathing is nonlabored. A repeat chest x-ray was done today and showed a new small left- sided pleural effusion and worsening in the left basilar atelectasis. There is also right lower lobe consolidation with possibly some atelectasis and small effusions. Objective - Vital Signs Vital signs: Vital Signs Temp 97.7 F 07/06/21 12:00 Pulse 85 07/06/21 14:00 Resp 18 07/06/21 14:00 BP 106/66 07/06/21 12:00 Pulse Ox 98 07/06/21 12:00 Intake & Output 07/05/21 07/06/21 07/06/21 18:59 06:59 18:59 Intake Total 835 273 0945 Output Total 2100 750 1150 Balance -1821 -630 52 Intake: IV 200 Oral 120 1002 Blood Product 279 Rc Pheresis 2 As3 Unit 279 [id number] Output: Urine 2100 750 1150 Other: Voiding Method Indwelling Catheter Indwelling Catheter Indwelling Catheter - Exam GENERAL EXAM: Awake, alert 61-year-old male patient, on 3 L of oxygen with pulse ox of 97%, no acute distress. HEAD: Normocephalic/atraumatic. EYES: Normal reaction of pupils, equal size. Conjunctiva pink, sclera white. NOSE: Clear with pink turbinates. THROAT: No erythema or exudates. NECK: No masses, no JVD, no thyroid enlargement, no adenopathy. CHEST: No chest wall deformity. Symmetrical expansion. LUNGS: Equal air entry with diminished breath sounds, no crackles, no rhonchi CVS: Regular rate and rhythm, normal S1 and S2, no gallops, no murmurs, no rubs ABDOMEN: Soft, nontender. No hepatosplenomegaly, normal bowel sounds, no guarding or rigidity. EXTREMITIES: No clubbing, no edema, no cyanosis, 2+ pulses and upper and lower extremities. MUSCULOSKELETAL: Muscle strength and tone normal. SPINE: No scoliosis or deformity SKIN: No rashes CENTRAL NERVOUS SYSTEM: Awake, cooperative. No focal deficits, tone is normal in all 4 extremities. - Labs CBC & Chem 7: 07/06/21 09:40 07/06/21 09:40 Labs: Abnormal Lab Results - Last 24 Hours (Table) 07/04/21 07/05/21 07/05/21 Range/Units 14:17 16:51 20:05 RBC (4.30-5.90) m/uL Hgb (13.0-17.5) gm/dL Hct (39.0-53.0) % RDW (11.5-15.5) % Sodium (137-145) mmol/L Chloride (98-107) mmol/L Carbon Dioxide (22-30) mmol/L BUN (9-20) mg/dL Glucose (74-99) mg/dL POC Glucose (mg/dL) 135 H 190 H (75-99) mg/dL Calcium (8.4-10.2) mg/dL Crossmatch See Detail 07/06/21 07/06/21 07/06/21 Range/Units 06:21 09:40 09:40 RBC 2.08 L (4.30-5.90) m/uL Hgb 6.5 L* (13.0-17.5) gm/dL Hct 20.3 L (39.0-53.0) % RDW 21.9 H (11.5-15.5) % Sodium 135 L (137-145) mmol/L Chloride 90 L (98-107) mmol/L Carbon Dioxide 41 H* (22-30) mmol/L BUN 82 H (9-20) mg/dL Glucose 101 H (74-99) mg/dL POC Glucose (mg/dL) 236 H (75-99) mg/dL Calcium 8.1 L (8.4-10.2) mg/dL Crossmatch 07/06/21 Range/Units 11:51 RBC (4.30-5.90) m/uL Hgb (13.0-17.5) gm/dL Hct (39.0-53.0) % RDW (11.5-15.5) % Sodium (137-145) mmol/L Chloride (98-107) mmol/L Carbon Dioxide (22-30) mmol/L BUN (9-20) mg/dL Glucose (74-99) mg/dL POC Glucose (mg/dL) 128 H (75-99) mg/dL Calcium (8.4-10.2) mg/dL Crossmatch Assessment and Plan Plan: 1 Acute altered mental status of unclear etiology, urine drug screen positive for methamphetamines and marijuana, hyponatremia, hypoxemia, recovered 2 Acute hypoxemic respiratory failure secondary to suspected congestive heart failure, COPD exacerbation, early infiltrates and possible apiration pneumonia here chest x-ray showing improvement in the left lung base. Continued consolidation in the right lower lobe. On 3 L nasal cannula now. 3 alcoholism 4 Acute renal failure , recovered 5 Thrombocytopenia secondary to daily alcohol use improved 6 Daily heavy alcohol use 7 Marijuana use 8 Chronic tobacco dependence 9 acute upper GI bleeding, secondary to duodenal ulcer and bleeding and the patient erosive esophagitis 10 Acute blood loss anemia Acute anemia requiring 3 units of packed red blood cells. Current hemoglobin 6.5. Stool for occult blood positive Plan: Monitor hemoglobin treated accordingly Recommend another unit of packed RBC transfusion, the patient has over the mid transfused with a total of 3 units IV iron IV Protonix Monitor oxygenation and the patient is currently on feeds about 3 by nasal cannula Chest x-ray was noted Watch for any signs of delirium tremens We'll continue to follow
--- NOTE | 2021-07-06 15:17 | P.CONS ---
History of Present Illness - Reason for Consult Consult date: 07/06/21 Anemia Requesting physician: Manuel Lance - Chief Complaint Unresponsive, altered mental status changes - History of Present Illness This is 61-year-old female who was brought into the emergency department on 06/26/2021 with altered mental status changes and found by his roommates to be unresponsive. Apparently the patient does have a history of alcohol abuse. Additional workup had demonstrated new onset atrial fibrillation and patient was started on anticoagulation. During this hospitalization he was noted to have a steady drop in his hemoglobin and then he went from 9.7-4.3. He was apparently having black stools. He is status post 3 units of PRBC transfusion with a repeat hemoglobin today of 6.5. He underwent EGD with Dr. Reyes with findings of LA grade B erosive esophagitis, acute severe Gastritis of the esophagus, acute gastric ulceration along the antrum with recent bleeding, punctate, acute duodenal ulceration with fresh clot second portion of the duodenum. Biopsies were taken and patient was started on Carafate 1 g 3 times daily as well as Protonix 40 mg twice daily. The patient currently denies any nausea or vomiting. He does have some abdominal pain. Review of Systems REVIEW OF SYSTEMS: CARDIOPULMONARY: No chest pain or shortness of breath. Gastrointestinal: Abdominal pain.. No nausea or vomiting. No hematemesis, coffee-ground emesis. No rectal bleeding, positive melena.. GENITOURINARY: No dysuria or hematuria. MUSCULOSKELETAL: Reports normal range of motion., Joint pain. SKIN: No rashes. No jaundice. ENDOCRINE: No chills, fevers. No excessive weight gain or loss. No polydipsia or polyuria. PSYCHIATRIC: Unremarkable. NEUROLOGY: No change in mental status. Denies dizziness, headache. ENT: Vision unremarkable. CONSTITUTIONAL: No recent weight loss. No fever, chills, night sweats. Past Medical History Past Medical History: Atrial Fibrillation, COPD, Hypertension History of Any Multi-Drug Resistant Organisms: None Reported Past Surgical History: No Surgical Hx Reported Past Anesthesia/Blood Transfusion Reactions: No Reported Reaction Past Psychological History: Depression Smoking Status: Current every day smoker Past Alcohol Use History: Abuse, Daily, Heavy Additional Past Alcohol Use History / Comment(s): Patient states he drinks a fifth of vodka daily Past Drug Use History: Marijuana Additional Drug Use History / Comment(s): Patient states he does not do meth, but the people he lives with do. Medications and Allergies Home Medications Medication Instructions Recorded Confirmed Type Unable To Assess [Unable to Assess] 06/26/21 06/26/21 History Allergies Allergy/AdvReac Type Severity Reaction Status Date / Time No Known Allergies Allergy Verified 06/26/21 11:56 Physical Exam Vitals: Vital Signs Temp Pulse Pulse Resp BP Pulse Ox 07/06/21 08:00 97.8 F 102 H 18 127/85 100 07/06/21 04:00 97.3 F L 81 18 120/80 95 07/06/21 02:00 81 18 07/06/21 00:00 98 F 81 18 95/61 97 07/05/21 20:00 97.9 F 85 18 113/62 97 07/05/21 16:57 88 07/05/21 16:52 93 L 07/05/21 16:49 93 07/05/21 16:00 98.3 F 70 16 99/69 98 07/05/21 12:00 98.4 F 83 16 104/79 97 07/05/21 11:58 90 18 07/05/21 11:49 92 18 Intake and Output 07/05/21 07/06/21 07/06/21 22:59 06:59 14:59 Intake Total 120 422 Output Total 750 400 Balance -750 120 22 Intake: IV 200 Oral 120 222 Output: Urine 750 400 Other: Voiding Method Indwelling Catheter Indwelling Catheter General appearance: The patient is alert, oriented, appears in no acute distress. HET: Head is normocephalic and atraumatic. Conjunctiva pink. Sclera anicteric. Neck: Supple without lymphadenopathy. Trachea midline. Heart: S1 S2. Regular rate and rhythm. Lungs: Clear to auscultation. Abdomen: Soft, diffuse tenderness, nondistended with bowel sounds. No guarding or rigidity. Skin: No rashes. No jaundice. Extremities: Normal skin color and turgor. No pedal edema. Neurological: No focal deficits. Alert and oriented x3. Results CBC & Chem 7: 07/06/21 09:40 07/06/21 09:40 Labs: Abnormal Lab Results - Last 24 Hours (Table) 07/04/21 07/05/21 07/05/21 Range/Units 14:17 10:50 11:57 RBC 2.12 L (4.30-5.90) m/uL Hgb 6.5 L* (13.0-17.5) gm/dL Hct 20.0 L (39.0-53.0) % RDW 21.0 H (11.5-15.5) % Lymphocytes # 0.6 L (1.0-4.8) k/uL POC Glucose (mg/dL) 131 H (75-99) mg/dL Crossmatch See Detail 07/05/21 07/05/21 07/06/21 Range/Units 16:51 20:05 06:21 RBC (4.30-5.90) m/uL Hgb (13.0-17.5) gm/dL Hct (39.0-53.0) % RDW (11.5-15.5) % Lymphocytes # (1.0-4.8) k/uL POC Glucose (mg/dL) 135 H 190 H 236 H (75-99) mg/dL Crossmatch Assessment and Plan (1) Acute blood loss anemia (ABLA) Narrative/Plan: 61-year-old male who was admitted to the hospital 10 days ago for unresponsiveness and altered mental status changes was later found to be anemic. He gradually had a decline in his hemoglobin which then dropped from 9.7-4.3. Apparently the patient had been having some black stools for 2-3 days as well. Gen. surgery was initially consulted and he underwent an EGD today that did show acute gastric ulcer as well as acute duodenal ulceration that had evidence of bleeding. The patient was started on Carafate and Protonix. He is still complaining of some abdominal discomfort. He has not had any nausea or vom iting. Hemoglobin this morning was 6.5 he is status post 3 units of PRBC transfusion with one ordered. We will continue to monitor patient if he has any further evidence of GI bleed or drop in hemoglobin we may need to have repeat EGD with treatment. Current Visit: Yes Status: Acute Code(s): D62 - ACUTE POSTHEMORRHAGIC ANEMIA SNOMED Code(s): 758855113 (2) Gastric ulcer Current Visit: Yes Status: Acute Code(s): K25.9 - GASTRIC ULCER, UNSP ACUTE OR CHRONIC, W/O HEMOR OR PERF SNOMED Code(s): 284194272 (3) Duodenal ulcer Current Visit: Yes Status: Acute Code(s): K26.9 - DUODENAL ULCER, UNSP ACUTE OR CHRONIC, W/O HEMOR OR PERF SNOMED Code(s): 95904844 (4) Atrial fibrillation Current Visit: Yes Status: Acute Code(s): I48.91 - UNSPECIFIED ATRIAL FIBRILLATION SNOMED Code(s): 04302377 Plan: 1. Continue symptomatic and supportive care 2. Agree with Carafate 1 g 3 times a day as well as Protonix twice a day 3. Agree patient is not a good candidate for anticoagulation due to bleeding ulcers 4. Daily CBC, transfuse for hemoglobin 6.5 or less according to protocol 5. Patient is status post EGD Thank you for this consultation, we will continue to follow, Dr. Claudia Farooq I agree with the dictator's note, documented as a scribe by Mandie Hooks.
[2021-07-06] MEDS: NYSTATIN 100,000 UNIT/ML SUSP 500,000 UNIT/5 ML CUP PO SCH ×3 (15:57→21:16)
[2021-07-06 16:34] LABS: Glucose,Whole Blood 166 mg/dL (75-99)
[2021-07-06] MEDS: MIRTAZAPINE 15 MG TAB PO SCH (19:33)
[2021-07-06 20:15] LABS: Glucose,Whole Blood 142 mg/dL (75-99)
[2021-07-06] MEDS: INSULIN DETEMIR (LEVEMIR) 100 UNIT/ML SYR SQ SCH (21:16)
[2021-07-07] MEDS ORDERED: LORazepam 2 MG/ML INJ IV STA (00:21)
[2021-07-07 06:31] LABS: Glucose,Whole Blood 93 mg/dL (75-99)
[2021-07-07] MEDS: INSULIN ASPART (NovoLOG) 100 UNIT/ML VIAL SQ SCH ×4 (06:36→20:38)
[2021-07-07] MEDS: SUCRALFATE 1 GM TAB PO SCH ×3 (06:37→17:10)
[2021-07-07] MEDS: MIDODRINE 5 MG TAB PO SCH ×3 (06:37→17:10)
[2021-07-07] MEDS: DILTIAZEM CD 120 MG CAP.ER.24H PO SCH ×2 (08:17→20:47)
[2021-07-07] MEDS: NYSTATIN 100,000 UNIT/ML SUSP 500,000 UNIT/5 ML CUP PO SCH ×4 (08:17→20:48)
[2021-07-07] MEDS: PANTOPRAZOLE 40 MG/10 ML VIAL IVP SCH ×2 (08:17→20:48)
[2021-07-07] MEDS: METOPROLOL TARTRATE 12.5 MG TAB PO SCH ×2 (08:17→20:47)
[2021-07-07] MEDS: SERTRALINE 50 MG TAB PO SCH (08:17)
[2021-07-07] MEDS: NICOTINE 21MG/24HR PATCH TRANSDERM SCH (08:18)
[2021-07-07] MEDS: IPRATROPIUM-ALBUTEROL 3 ML NEB INHALATION SCH ×4 (08:23→20:06)
[2021-07-07 08:32] LABS: Calcium 8.2 mg/dL (8.4-10.2)
[2021-07-07 08:34] LABS: Anisocytosis Moderate; HCT 25.6 % (39.0-53.0); Hypochromasia Slight; MCH 30.8 pg (25.0-35.0); MCV 96.2 fL (80.0-100.0); Macrocytosis Slight; Mean Platelet Volume 8.7; Platelet Count 237 k/uL (150-450); Poikilocytosis Slight; RBC 2.67 m/uL (4.30-5.90); RDW 20.8 % (11.5-15.5); WBC 10.1 k/uL (3.8-10.6)
[2021-07-07 08:37] LABS: HGB 8.2 gm/dL (13.0-17.5)
[2021-07-07] MEDS: SODIUM FERRIC GLUCONAT-SUCROSE 125 MG in SODIUM CHLORIDE 0.9% 100 ML IVPB SCH (08:49)
[2021-07-07 08:55] LABS: Potassium 3.8 mmol/L (3.5-5.1)
--- NOTE | 2021-07-07 10:40 | P.PN ---
Subjective Patient is seen in follow-up for hyponatremia and acute kidney injury. Sodium level 131 today. Renal function improved. Has a Zaragoza catheter. Nonoliguric. Denies any active bleeding today. On 3 L is a cannula. Received a unit of blood yesterday. Hemoglobin 8.2 today. Vital signs stable. Gen: The patient appeared well nourished and normally developed. HEENT: Head exam is unremarkable. LUNGS: Breath sounds decreased. HEART: Rate and Rhythm are regular. ABDOMEN: Soft, no distention. EXTREMITITES: Trace edema. Objective - Vital Signs Vital signs: Vital Signs Temp 98.0 F 07/07/21 08:00 Pulse 76 07/07/21 08:33 Resp 18 07/07/21 08:00 BP 112/72 07/07/21 08:00 Pulse Ox 100 07/07/21 08:00 Intake & Output 07/06/21 07/07/21 07/07/21 18:59 06:59 18:59 Intake Total 1862 310 Output Total 1575 500 Balance 287 -190 Intake: IV 200 Oral 1662 Blood Product 0 310 Rc As-1 Unit 0 310 [id number] Output: Urine 1575 500 Other: Voiding Method Indwelling Catheter Indwelling Catheter Indwelling Catheter - Labs CBC & Chem 7: 07/07/21 07:33 07/07/21 07:33 Labs: Abnormal Lab Results - Last 24 Hours (Table) 07/04/21 07/06/21 07/06/21 Range/Units 14:17 09:40 09:40 RBC 2.08 L (4.30-5.90) m/uL Hgb 6.5 L* (13.0-17.5) gm/dL Hct 20.3 L (39.0-53.0) % RDW 21.9 H (11.5-15.5) % Sodium 135 L (137-145) mmol/L Chloride 90 L (98-107) mmol/L Carbon Dioxide 41 H* (22-30) mmol/L BUN 82 H (9-20) mg/dL Glucose 101 H (74-99) mg/dL POC Glucose (mg/dL) (75-99) mg/dL Calcium 8.1 L (8.4-10.2) mg/dL Crossmatch See Detail 07/06/21 07/06/21 07/06/21 Range/Units 11:51 16:32 20:13 RBC (4.30-5.90) m/uL Hgb (13.0-17.5) gm/dL Hct (39.0-53.0) % RDW (11.5-15.5) % Sodium (137-145) mmol/L Chloride (98-107) mmol/L Carbon Dioxide (22-30) mmol/L BUN (9-20) mg/dL Glucose (74-99) mg/dL POC Glucose (mg/dL) 128 H 166 H 142 H (75-99) mg/dL Calcium (8.4-10.2) mg/dL Crossmatch 07/07/21 07/07/21 Range/Units 07:33 07:33 RBC 2.67 L (4.30-5.90) m/uL Hgb 8.2 L D (13.0-17.5) gm/dL Hct 25.6 L (39.0-53.0) % RDW 20.8 H (11.5-15.5) % Sodium 131 L (137-145) mmol/L Chloride 92 L (98-107) mmol/L Carbon Dioxide 37 H (22-30) mmol/L BUN 73 H (9-20) mg/dL Glucose (74-99) mg/dL POC Glucose (mg/dL) (75-99) mg/dL Calcium 8.2 L (8.4-10.2) mg/dL Crossmatch Assessment and Plan Plan: Assessment: 1. Hypervolemic hyponatremia improved with diuresis. Improved. Also component of poor solute intake. Sodium level 131. 2. Volume overload. Improved with diuresis. 3. Alcohol abuse. 4. Acute kidney injury secondary to hemodynamic ATN and acute blood loss anemia. Creatinine 1.2 today. Elevated BUN secondary to GI bleed as well as s teroids. Improving. 5. Metabolic alkalosis from diuresis. Improved. Diuretics held. 6. Acute GI bleed receiving blood transfusions. He did receive IV DDAVP July 04. Eliquis stopped. Surgery following. EGD showed bleeding duodenal and gastric ulcerations. 7. Hypotension due to severe anemia. Cortisol level not low. Better. Plan: Continue hold Lasix for now. Encouraged oral intake. Maintain fluid restriction. Avoid nephrotoxins. Continue to monitor renal function and urine output. Maintain midodrine - hold for systolic blood pressure above 110.
--- NOTE | 2021-07-07 11:33 | P.PN ---
Subjective Progress Note Date: 07/07/21 61-year-old male patient is being seen in follow-up. The patient is being seen in follow-up on 07/06/2021. The patient underwent endoscopy for profound anemia. Noted the patient got transfused with a total of 3 units of packed RBC and the patient was having dark tarry stool. The patient underwent his EGD and the patient was found to have acute gastric ulceration with bleeding, acute duodenal ulceration with bleeding, acute erosive esophagitis from candidiasis and ongoing issues with acid reflux. The hemoglobin from this day's at 6.5. Another unit of packed RBC will be given to this patient. The patient is also on IV iron. The patient is on IV Protonix 40 mg every 12 hours. Note that over the weekend, the patient developed GI bleeding and Eliquis was placed on hold. The patient was also seen by cardiology regarding atrial fibrillation. The patient is an echocardiogram showing an ejection fraction of 50-55%. There was significant pulmonary hypertension with a PA pressure of 76. The patient is known to have chronic atrial fibrillation. The patient is known to have COPD, hypertension, alcohol abuse and he was seen multiple times in the emergency department for acute alcohol intoxication and suicidal ideation the past and this time around he was brought in by his roommate found them unresponsive and he typically drinks around half a gallon of liquor on a daily basis. Currently is on 3 L of oxygen by nasal cannula with a pulse ox of 98%. His breathing is nonlabored. A repeat chest x-ray was done today and showed a new small left- sided pleural effusion and worsening in the left basilar atelectasis. There is also right lower lobe consolidation with possibly some atelectasis and small effusions. On today's evaluation of 07/07/2021, the patient is being seen for a follow-up. No signs of any delirium tremens. The patient received another unit of packed RBC making a total of 4 units of the patient's hemoglobin is currently stable and felt to 8.2. The BUN is at 73 with a creatinine of 1.2. The patient is resting comfortably in bed. The patient remains on IV Protonix. He remains on 3 L of oxygen by nasal cannula. As mentioned earlier, the chest x-ray shows atelectatic changes in lung bases bilaterally more so on the right. He would provide an incentive spirometer. He is not take any form of anticoagulants for now. Echocardiac Juan Manuel showed a preserved LV function with an ejection fraction of 50-55% and the patient had severe pulmonary hypertension. He is known to have COPD, chronic atrial fibrillation, hypertension and history of alcoholism. The white cell count is at 10.1. Sodium is at 131, BUN is at 73 with a creatinine of 1.2. Objective - Vital Signs Vital signs: Vital Signs Temp 97.9 F 07/07/21 11:30 Pulse 78 07/07/21 11:30 Resp 16 07/07/21 11:30 BP 109/69 07/07/21 11:30 Pulse Ox 100 07/07/21 11:30 Intake & Output 07/06/21 07/07/21 07/07/21 18:59 06:59 18:59 Intake Total 1862 310 Output Total 1575 500 Balance 287 -190 Intake: IV 200 Oral 1662 Blood Product 0 310 Rc As-1 Unit 0 310 [id number] Output: Urine 1575 500 Other: Voiding Method Indwelling Catheter Indwelling Catheter Indwelling Catheter - Exam GENERAL EXAM: Awake, alert 61-year-old male patient, on 3 L of oxygen with pulse ox of 97%, no acute distress. HEAD: Normocephalic/atraumatic. EYES: Normal reaction of pupils, equal size. Conjunctiva pink, sclera white. NOSE: Clear with pink turbinates. THROAT: No erythema or exudates. NECK: No masses, no JVD, no thyroid enlargement, no adenopathy. CHEST: No chest wall deformity. Symmetrical expansion. LUNGS: Equal air entry with diminished breath sounds, no crackles, no rhonchi CVS: Regular rate and rhythm, normal S1 and S2, no gallops, no murmurs, no rubs ABDOMEN: Soft, nontender. No hepatosplenomegaly, normal bowel sounds, no guarding or rigidity. EXTREMITIES: No clubbing, no edema, no cyanosis, 2+ pulses and upper and lower extremities. MUSCULOSKELETAL: Muscle strength and tone normal. SPINE: No scoliosis or deformity SKIN: No rashes CENTRAL NERVOUS SYSTEM: Awake, cooperative. No focal deficits, tone is normal in all 4 extremities. - Labs CBC & Chem 7: 07/07/21 07:33 07/07/21 07:33 Labs: Abnormal Lab Results - Last 24 Hours (Table) 01/07/06/21 07/06/21 Range/Units 14:17 09:40 11:51 RBC 2.08 L (4.30-5.90) m/uL Hgb 6.5 L* (13.0-17.5) gm/dL Hct 20.3 L (39.0-53.0) % RDW 21.9 H (11.5-15.5) % Sodium (137-145) mmol/L Chloride (98-107) mmol/L Carbon Dioxide (22-30) mmol/L BUN (9-20) mg/dL POC Glucose (mg/dL) 128 H (75-99) mg/dL Calcium (8.4-10.2) mg/dL Crossmatch See Detail 07/06/21 07/06/21 07/07/21 Range/Units 16:32 20:13 07:33 RBC (4.30-5.90) m/uL Hgb (13.0-17.5) gm/dL Hct (39.0-53.0) % RDW (11.5-15.5) % Sodium 131 L (137-145) mmol/L Chloride 92 L (98-107) mmol/L Carbon Dioxide 37 H (22-30) mmol/L BUN 73 H (9-20) mg/dL POC Glucose (mg/dL) 166 H 142 H (75-99) mg/dL Calcium 8.2 L (8.4-10.2) mg/dL Crossmatch 07/07/21 Range/Units 07:33 RBC 2.67 L (4.30-5.90) m/uL Hgb 8.2 L D (13.0-17.5) gm/dL Hct 25.6 L (39.0-53.0) % RDW 20.8 H (11.5-15.5) % Sodium (137-145) mmol/L Chloride (98-107) mmol/L Carbon Dioxide (22-30) mmol/L BUN (9-20) mg/dL POC Glucose (mg/dL) (75-99) mg/dL Calcium (8.4-10.2) mg/dL Crossmatch Assessment and Plan Plan: 1 Acute altered mental status of unclear etiology, urine drug screen positive for methamphetamines and marijuana, hyponatremia, hypoxemia, recovered, and the patient seems to be back to his baseline. The patient has no signs of any delirium tremens at this point in time. 2 Acute hypoxemic respiratory failure secondary to suspected congestive heart failure, COPD exacerbation, early infiltrates and possible apiration pneumonia here chest x-ray showing improvement in the left lung base. Continued consolidation in the right lower lobe. On 3 L nasal cannula now. 3 alcoholism 4 Acute renal failure , recovered 5 Thrombocytopenia secondary to daily alcohol use improved 6 Daily heavy alcohol use 7 Marijuana use 8 Chronic tobacco dependence 9 acute upper GI bleeding, secondary to duodenal ulcer and bleeding and the patient erosive esophagitis 10 Acute blood loss anemia Acute anemia requiring 3 units of packed red blood cells. Current hemoglobin 6.5. Stool for occult blood positive Plan: The patient was transferred to the level of 4 units of packed RBC. EGD was done and the bleeding was controlled. Hemoglobin is stable and it's up to 8.2 Monitor hemoglobin treated accordingly Advance diet as tolerated IV iron IV Protonix Monitor oxygenation and the patient is currently on feeds about 3 by nasal cannula Chest x-ray was noted Watch for any signs of delirium tremens We'll continue to follow
[2021-07-07 11:47] LABS: Glucose,Whole Blood 76 mg/dL (75-99)
[2021-07-07] MEDS: ACETAMINOPHEN TAB 325 MG TAB PO PRN ×2 (11:58→20:48)
[2021-07-07] MEDS ORDERED: SERTRALINE 50 MG TAB PO STA (12:05)
--- NOTE | 2021-07-07 12:26 | P.PN ---
Subjective Progress Note Date: 07/07/21 HISTORY OF PRESENT ILLNESS: Patient is a very pleasant 61-year-old male with a past medical history of permanent atrial fibrillation, hypertension, hyperlipidemia, COPD with ongoing tobacco dependence., Alcohol abuse, and cannabis use. He was admitted to the hospital on 06/26/21 for acute metabolic encephalopathy secondary to alcohol intoxication, hyponatremia, and elevated ammonia levels. On 07/04/21 patient was noted to have acute blood loss anemia with hemoglobin of 4.3 from previous 9.7 resulting in transfusion of 3 units PRBCs with current hemoglobin of 6.5. We were consulted this morning secondary to history of atrial fibrillation on Coumadin signs of previous echocardiogram report. Previous echocardiogram completed 10/27/20 revealed EF of 50-55% with mild mitral and tricuspid regurgitation and moderate pulmonary hypertension. Patient seen and fully ev aluated at the bedside this morning. Patient somewhat of a poor historian but does report to daily alcohol use/abuse drinking a half a gallon of liquor per day. At time of assessment patient completing third unit of PRBCs since diagnosis of acute blood loss anemia on 07/04/21. Patient currently denies experiencing any headache, lightheadedness, dizziness, chest pain, palpitations, shortness of breath, weakness, or experiencing any numbness/tingling/weakness in his extremities. 07/06/2021 Patient examined at the bedside. Patient denies chest pain or pressure. Denies SOB. He remains in atrial fibrillation with controlled ventricular rate. He underwent EGD revealing multiple ulcerations in the stomach and duodenum. He is currently not anticoagulated. 07/07/2021 Patient examined this morning at the bedside. He denies chest pain or pressure. Denies SOB. He remains in afib with controlled ventricular rates. His hemoglobin is stable. He is not receiving anticoagulation. echocardiogram completed revealing ejection fraction 50-55%, mild mitral regurgitation, moderate to severe tricuspid regurgitation, and severe pulmonary hypertension. PHYSICAL EXAM: VITAL SIGNS: Reviewed. GENERAL: Well-developed in no acute distress. NECK: Supple. No JVD or thyromegaly LUNGS: Respirations even and unlabored. Lungs diminished bilaterally HEART: Irregular rate and rhythm. S1 and S2 heard. EXTREMITIES: Normal range of motion. No clubbing or cyanosis. Peripheral pulses intact. No lower extremity edema ASSESSMENT: Permanent atrial fibrillation with episode of RVR Hypertension Hyperlipidemia Alcohol abuse reportedly drinking a half a gallon of alcohol daily Acute blood loss anemia Hyponatremia PLAN: Continue current cardiac medications Continue to monitor hemoglobin. No anticoagulation due to EGD findings No further inpatient recommendations from a cardiac standpoint We will sign off. Please reconsult if needed. Nurse practitioner note has been reviewed by physician. Signing provider agrees with the documented findings, assessment, and plan of care. Objective - Vital Signs Vital signs: Vital Signs Temp 97.9 F 07/07/21 11:30 Pulse 78 07/07/21 11:30 Resp 16 07/07/21 11:30 BP 109/69 07/07/21 11:30 Pulse Ox 100 07/07/21 11:30 Intake & Output 07/06/21 07/07/21 07/07/21 18:59 06:59 18:59 Intake Total 1862 310 Output Total 1575 500 600 Balance 287 -190 -600 Intake: IV 200 Oral 1662 Blood Product 0 310 Rc As-1 Unit 0 310 [id number] Output: Urine 1575 500 600 Other: Voiding Method Indwelling Catheter Indwelling Catheter Indwelling Catheter - Labs CBC & Chem 7: 07/07/21 07:33 07/07/21 07:33 Labs: Abnormal Lab Results - Last 24 Hours (Table) 07/04/21 07/06/21 07/06/21 Range/Units 14:17 09:40 16:32 RBC 2.08 L (4.30-5.90) m/uL Hgb 6.5 L* (13.0-17.5) gm/dL Hct 20.3 L (39.0-53.0) % RDW 21.9 H (11.5-15.5) % Sodium (137-145) mmol/L Chloride (98-107) mmol/L Carbon Dioxide (22-30) mmol/L BUN (9-20) mg/dL POC Glucose (mg/dL) 166 H (75-99) mg/dL Calcium (8.4-10.2) mg/dL Crossmatch See Detail 07/06/21 07/07/21 07/07/21 Range/Units 20:13 07:33 07:33 RBC 2.67 L (4.30-5.90) m/uL Hgb 8.2 L D (13.0-17.5) gm/dL Hct 25.6 L (39.0-53.0) % RDW 20.8 H (11.5-15.5) % Sodium 131 L (137-145) mmol/L Chloride 92 L (98-107) mmol/L Carbon Dioxide 37 H (22-30) mmol/L BUN 73 H (9-20) mg/dL POC Glucose (mg/dL) 142 H (75-99) mg/dL Calcium 8.2 L (8.4-10.2) mg/dL Crossmatch
--- NOTE | 2021-07-07 13:21 | P.PN ---
<MoiseHelen bell - Last Filed: 07/07/21 13:14> Subjective Progress Note Date: 07/07/21 CHIEF COMPLAINT: Acute anemia HISTORY OF PRESENT ILLNESS: The patient is a 61 year old male admitted to 06/26/2021 after being found unresponsive. Patient has been hospitalized for the last 9 days. Patient has history of heavy alcohol abuse. Additional workup demonstrated new onset atrial fibrillation. Patient was admitted and placed on blood thinner. Hemoglobin on admission was 12.7. Hemoglobin did drop to 4.0. Patient has received a total of 4 units of blood during his admission. Hemoglobin yesterday 6.5 up to 8.2. He has received IV iron and did receive a unit of blood yesterday. Patient is status post EGD demonstrating Acute gastric ulcerations with bleeding, Acute duodenal ulceration with bleeding, Acute severe erosive esophagitis from candidiasis and Gastroesophageal reflux disease. Patient is on fluid restrictions for his hyponatremia. Episodes only able to eat a small amount of liquid tray. PHYSICAL EXAM: VITAL SIGNS: Reviewed GENERAL: Well-developed in no acute distress. HEENT: No sclera icterus. Extraocular movements grossly intact. Moist buccal mucosa. Head is atraumatic, normocephalic. Hears conversational speech. No nasal drainage. NECK: Supple without lymphadenopathy. CHEST: Non-labored respirations and equal bilateral excursions. CARDIOVASCULAR: Palpable 2+ radial pulses. ABDOMEN: Soft. Nondistended. Nontender. MUSCULOSKELETAL: No clubbing or cyanosis. NEUROLOGIC: No focal or lateralizing signs. Cranial nerves II through XII grossly intact. PSYCH: Appropriate affect. Alert and oriented to person, place and time. SKIN: Well perfused. Good skin turgor. ASSESSMENT: 1. Acute blood loss anemia secondary to bleeding from gastric ulcer and duodenal ulcer. EGD demonstrated acute gastric ulcerations with bleeding, Acute duodenal ulceration with bleeding, Acute severe erosive esophagitis from candidiasis and Gastroesophageal reflux disease. 2. Anticoagulant exposure 3. History of heavy alcohol abuse disorder 4. Hyponatremia PLAN: -await biopsy results -Continue Protonix and Carafate -Avoid all anticoagulation due to severe acute blood loss anemia and multiple ulcerations in the stomach and duodenal -Continue IV iron. Patient has received 2 out of 3 bags of iron -Continue nystatin swish and swallow -Advance diet to full liquids -Continue supportive care Physician Customer Care Professional note has been reviewed by physician. Signing provider agrees with the documented findings, assessment, and plan of care. Objective - Vital Signs Vital signs: Vital Signs Temp 97.9 F 07/07/21 11:30 Pulse 78 07/07/21 11:30 Resp 16 07/07/21 11:30 BP 109/69 07/07/21 11:30 Pulse Ox 100 07/07/21 11:30 Intake & Output 07/06/21 07/07/21 07/07/21 18:59 06:59 18:59 Intake Total 1862 310 Output Total 1575 500 600 Balance 287 -190 -600 Intake: IV 200 Oral 1662 Blood Product 0 310 Rc As-1 Unit 0 310 [id number] Output: Urine 1575 500 600 Other: Voiding Method Indwelling Catheter Indwelling Catheter Indwelling Catheter - Labs CBC & Chem 7: 07/07/21 07:33 07/07/21 07:33 Labs: Abnormal Lab Results - Last 24 Hours (Table) 07/04/21 07/06/21 07/06/21 Range/Units 14:17 16:32 20:13 RBC (4.30-5.90) m/uL Hgb (13.0-17.5) gm/dL Hct (39.0-53.0) % RDW (11.5-15.5) % Sodium (137-145) mmol/L Chloride (98-107) mmol/L Carbon Dioxide (22-30) mmol/L BUN (9-20) mg/dL POC Glucose (mg/dL) 166 H 142 H (75-99) mg/dL Calcium (8.4-10.2) mg/dL Crossmatch See Detail 07/07/21 07/07/21 Range/Units 07:33 07:33 RBC 2.67 L (4.30-5.90) m/uL Hgb 8.2 L D (13.0-17.5) gm/dL Hct 25.6 L (39.0-53.0) % RDW 20.8 H (11.5-15.5) % Sodium 131 L (137-145) mmol/L Chloride 92 L (98-107) mmol/L Carbon Dioxide 37 H (22-30) mmol/L BUN 73 H (9-20) mg/dL POC Glucose (mg/dL) (75-99) mg/dL Calcium 8.2 L (8.4-10.2) mg/dL Crossmatch <Lauren Reyes N - Last Filed: 07/09/21 16:07> Subjective CHIEF COMPLAINT: Acute anemia HISTORY OF PRESENT ILLNESS: The patient is a 61 year old male who during hospitalization developed acute blood loss anemia tingling down to 4.0. He status post multiple blood transfusions. Upper endoscopy confirms acute gastric and duodenal ulcerations. He reports epigastric pain. REVIEW OF ORGAN SYSTEMS: No fevers or chills. No acute chest pain. Has poor mentation. PHYSICAL EXAM: VITALS: Reviewed CONSTITUTIONAL: Well developed and in no acute distress. EYES: Conjuctivae without sclera icterus. Extraocular movements grossly intact. HEAD, EARS, NOSE, THROAT: Moist buccal mucosa. Head is atraumatic, normocephalic. Hears conversational speech. No nasal drainage. RESPIRATORY: Non-labored respirations and equal bilateral excursions. No gross wheezes. CARDIOVASCULAR: Palpable 2+ radial pulses. ABDOMEN: Mild epigastric tenderness. MUSCULOSKELETAL: No clubbing cyanosis. SKIN: Warm and well perfused with good skin turgor. NEUROLOGIC: Cranial nerves II through XII grossly intact. No focal or lateralizing signs. PSYCH: Alert to self. CLINCAL LABS: Reviewed. Hemoglobin stable at 8.2 up from 6.5 ASSESSMENT: 1. Acute blood loss anemia status post blood transfusion 2. Anticoagulant exposure 3. History of heavy alcohol abuse disorder 4. Acute gastric and duodenal ulcers with bleeding 5. Candidiasis of the esophagus PLAN: 1. Continue iron infusions 2. Nystatin oral for candidiasis of the esophagus 3. Avoid all anticoagulant 4. Management of hyponatremia 5. Continue hospitalization 6. Diet advancement pending no further GI bleed Objective - Vital Signs Vital signs: Vital Signs Temp 97.9 F 07/09/21 08:54 Pulse 73 07/09/21 16:00 Resp 18 07/09/21 16:00 BP 91/55 07/09/21 16:00 Pulse Ox 100 07/09/21 16:00 Intake & Output 07/08/21 07/09/21 07/09/21 18:59 06:59 18:59 Intake Total 280 120 120 Output Total 1575 425 Balance -1295 -305 120 Intake: IV 100 Sodium Ferric Gluconat- 100 Sucrose 125 mg In Sodium Chloride 0.9% 100 ml @ 100 mls/hr IVPB DAILY [facility] Rx#:[id number] Oral 180 120 120 Output: Urine 1575 425 Uretheral ([place]ar[place]za) 525 Other: Voiding Method Bedside Commode Indwelling Catheter Urinal - Labs CBC & Chem 7: 07/09/21 14:36 07/09/21 07:03 Labs: Abnormal Lab Results - Last 24 Hours (Table) 07/08/21 07/09/21 07/09/21 Range/Units 20:05 06:16 06:31 WBC (3.8-10.6) k/uL RBC (4.30-5.90) m/uL Hgb (13.0-17.5) gm/dL Hct (39.0-53.0) % MCV (80.0-100.0) fL RDW (11.5-15.5) % Neutrophils # (1.3-7.7) k/uL Lymphocytes # (1.0-4.8) k/uL Sodium (137-145) mmol/L Chloride (98-107) mmol/L Carbon Dioxide (22-30) mmol/L BUN (9-20) mg/dL POC Glucose (mg/dL) 101 H 61 L 61 L (75-99) mg/dL 07/09/21 07/09/21 07/09/21 Range/Units 06:36 06:49 07:03 WBC 11.4 H (3.8-10.6) k/uL RBC 2.92 L (4.30-5.90) m/uL Hgb 9.3 L (13.0-17.5) gm/dL Hct 29.4 L (39.0-53.0) % MCV 100.9 H (80.0-100.0) fL RDW 20.9 H (11.5-15.5) % Neutrophils # (1.3-7.7) k/uL Lymphocytes # (1.0-4.8) k/uL Sodium (137-145) mmol/L Chloride (98-107) mmol/L Carbon Dioxide (22-30) mmol/L BUN (9-20) mg/dL POC Glucose (mg/dL) 50 L 56 L (75-99) mg/dL 07/09/21 07/09/21 07/09/21 Range/Units 07:03 11:36 14:36 WBC (3.8-10.6) k/uL RBC 2.56 L (4.30-5.90) m/uL Hgb 8.3 L (13.0-17.5) gm/dL Hct 26.5 L (39.0-53.0) % MCV 103.3 H (80.0-100.0) fL RDW 21.6 H (11.5-15.5) % Neutrophils # 8.5 H (1.3-7.7) k/uL Lymphocytes # 0.9 L (1.0-4.8) k/uL Sodium 134 L (137-145) mmol/L Chloride 95 L (98-107) mmol/L Carbon Dioxide 33 H (22-30) mmol/L BUN 52 H (9-20) mg/dL POC Glucose (mg/dL) 159 H (75-99) mg/dL Assessment and Plan (1) Acute blood loss anemia (ABLA) Current Visit: Yes Status: Acute Code(s): D62 - ACUTE POSTHEMORRHAGIC ANEMIA SNOMED Code(s): 939931929 (2) Atrial fibrillation Current Visit: Yes Status: Acute Code(s): I48.91 - UNSPECIFIED ATRIAL FIBR ILLATION SNOMED Code(s): 76954569 (3) COPD (chronic obstructive pulmonary disease) Current Visit: No Status: Acute Code(s): J44.9 - CHRONIC OBSTRUCTIVE PULMONARY DISEASE, UNSPECIFIED SNOMED Code(s): 56444549 (4) Duodenal ulcer hemorrhagic Current Visit: Yes Status: Acute Code(s): K26.4 - CHRONIC OR UNSPECIFIED DUODENAL ULCER WITH HEMORRHAGE SNOMED Code(s): 19954782 (5) Gastric ulcer with hemorrhage Current Visit: Yes Status: Acute Code(s): K25.4 - CHRONIC OR UNSPECIFIED GASTRIC ULCER WITH HEMORRHAGE SNOMED Code(s): 48448900
[2021-07-07] MEDS: chlordiazePOXIDE 5 MG CAPSULE PO PRN ×2 (14:05→20:47)
--- NOTE | 2021-07-07 15:18 | P.PN ---
Subjective Progress Note Date: 07/07/21 Principal diagnosis: GI bleed Patient seen and examined as a follow-up for GI bleed. He underwent EGD with Dr. Kaiser with findings of gastric and fundal ulcer. Today he denies any bowel movement, and no blood in his stool. Hemoglobin is stable at 8.2. He does state he has some abdominal discomfort, no nausea or vomiting. Objective - Vital Signs Vital signs: Vital Signs Temp 97.9 F 07/07/21 11:30 Pulse 78 07/07/21 11:30 Resp 16 07/07/21 11:30 BP 109/69 07/07/21 11:30 Pulse Ox 100 07/07/21 11:30 Intake & Output 07/06/21 07/07/21 07/07/21 18:59 06:59 18:59 Intake Total 1862 310 Output Total 1575 500 Balance 287 -190 Intake: IV 200 Oral 1662 Blood Product 0 310 Rc As-1 Unit 0 310 [id number] Output: Urine 1575 500 Other: Voiding Method Indwelling Catheter Indwelling Catheter Indwelling Catheter - Exam General appearance: The patient is alert, oriented, appears in no acute distress. HET: Head is normocephalic and atraumatic. Conjunctiva pink. Sclera anicteric. Neck: Supple without lymphadenopathy. Abdomen: Soft, mild tenderness to palpation, nondistended with bowel sounds. No guarding or rigidity. Extremities: Normal skin color and turgor. No pedal edema Skin: No rashes, no jaundice Neurological: No focal deficits. Alert and oriented -3. - Labs CBC & Chem 7: 07/07/21 07:33 07/07/21 07:33 Labs: Abnormal Lab Results - Last 24 Hours (Table) 07/04/21 07/06/21 07/06/21 Range/Units 14:17 09:40 11:51 RBC 2.08 L (4.30-5.90) m/uL Hgb 6.5 L* (13.0-17.5) gm/dL Hct 20.3 L (39.0-53.0) % RDW 21.9 H (11.5-15.5) % Sodium (137-145) mmol/L Chloride (98-107) mmol/L Carbon Dioxide (22-30) mmol/L BUN (9-20) mg/dL POC Glucose (mg/dL) 128 H (75-99) mg/dL Calcium (8.4-10.2) mg/dL Crossmatch See Detail 07/06/21 07/06/21 07/07/21 Range/Units 16:32 20:13 07:33 RBC (4.30-5.90) m/uL Hgb (13.0-17.5) gm/dL Hct (39.0-53.0) % RDW (11.5-15.5) % Sodium 131 L (137-145) mmol/L Chloride 92 L (98-107) mmol/L Carbon Dioxide 37 H (22-30) mmol/L BUN 73 H (9-20) mg/dL POC Glucose (mg/dL) 166 H 142 H (75-99) mg/dL Calcium 8.2 L (8.4-10.2) mg/dL Crossmatch 07/07/21 Range/Units 07:33 RBC 2.67 L (4.30-5.90) m/uL Hgb 8.2 L D (13.0-17.5) gm/dL Hct 25.6 L (39.0-53.0) % RDW 20.8 H (11.5-15.5) % Sodium (137-145) mmol/L Chloride (98-107) mmol/L Carbon Dioxide (22-30) mmol/L BUN (9-20) mg/dL POC Glucose (mg/dL) (75-99) mg/dL Calcium (8.4-10.2) mg/dL Crossmatch Assessment and Plan (1) Acute blood loss anemia (ABLA) Narrative/Plan: 61-year-old male who was admitted to the hospital 10 days ago for unresponsiveness and altered mental status changes was later found to be anemic. He gradually had a decline in his hemoglobin which then dropped from 9.7-4.3. Apparently the patient had been having some black stools for 2-3 days as well. Gen. surgery was initially consulted and he underwent an EGD today that did show acute gastric ulcer as well as acute duodenal ulceration that had evidence of bleeding. The patient was started on Carafate and Protonix. He is still complaining of some abdominal discomfort. He has not had any nausea or vomiting. Hemoglobin this morning was 6.5 he is status post 3 units of PRBC transfusion with one ordered. We will continue to monitor patient if he has any further evidence of GI bleed or drop in hemoglobin we may need to have repeat EGD with treatment. Current Visit: Yes Status: Acute Code(s): D62 - ACUTE POSTHEMORRHAGIC ANEMIA SNOMED Code(s): 241624474 (2) Gastric ulcer Current Visit: Yes Status: Acute Code(s): K25.9 - GASTRIC ULCER, UNSP ACUTE OR CHRONIC, W/O HEMOR OR PERF SNOMED Code(s): 306900139 (3) Duodenal ulcer Current Visit: Yes Status: Acute Code(s): K26.9 - DUODENAL ULCER, UNSP ACUTE OR CHRONIC, W/O HEMOR OR PERF SNOMED Code(s): 78579708 (4) Atrial fibrillation Current Visit: Yes Status: Acute Code(s): I48.91 - UNSPECIFIED ATRIAL FIBRILLATION SNOMED Code(s): 44815675 Plan: 1. Continue symptomatic and supportive care 2. Agree with Carafate 1 g 3 times a day as well as Protonix twice a day 3. Agree patient is not a good candidate for anticoagulation due to bleeding ulcers 4. Daily CBC, transfuse for hemoglobin 6.5 or less according to protocol 5. Patient is status post EGD 6. The patient tolerates full liquid diet may advance diet in the morning Thank you for this consultation, we will continue to follow, Dr. Claudia Farooq I agree with the dictator's note, documented as a scribe by Mandie Hooks.
--- NOTE | 2021-07-07 15:29 | P.PN ---
Subjective Progress Note Date: 07/07/21 61 year old male with history of hypertension, atrial fibrillation, atrial flutter, alcohol abuse, COPD who has been seen multiple times in the ER for alcohol intoxication and suicidal ideation in the past was brought in by EMS as his roommate found him unresponsive. Patient drinks daily half a gallon. Patient evaluated in the ER. He would wake up intermittently say a few words and go back to sleep. Patient appears trunk, sees he wants to and appears that he is seeing things in the room as he is pointing at lopes. Patient is unable to maintain eye contact as he drifts into sleep. She received breathing treatment on his way to the hospital and also endorses before he came to the hospital. He received another nebulizing treatment before I evaluated him. Patient continues to wheeze significantly on evaluation. He denies any cough or shortness of breath or chest pain. Patient was afebrile tachycardic at 106, respiratory rate of 15 blood pressure 107/78 oxygen saturation 89% on room air improved to 97% on 2 L. EKG was obtained showed A. fib with rapid response of response at 120 CT of the brain was negative for any acute abnormality does have acute mastoiditis. Chest x-ray suggestive of mild congestive heart failure. Labs are reviewed patient has a WBC of 4.2 hemoglobin 12.7 sodium 118 chloride 82 bicarb 22 BUN 37 creatinine is 0.03. Ammonia level is a 25 alcohol level 218Patient is alcohol intoxication with suicidal ideation. Sitter at bedside ordered. We will discontinue IV fluids as patient appears volume overloaded. Solu-Medrol was initiated at 60 IV every 6 with DuoNeb's with pulmonary consult. Sodium levels with the acetaminophen urine osmolality were ordered. Nephrology consulted for management of sodium. 06/27 patient evaluated bedside is alert and answer questions appropriately. Sitter at bedside. Patient is currently 84% on 3 L of oxygen. Repeat chest x- ray suggestive of right lower lid and a troponin airspace opacity along with le ft lower airspace opacity with developing infectious process with COPD changes 06/28 patient evaluated at bedside lying comfortably in bed. Patient denies any chest pain or shortness of breath. Vitals are stable patient continues from and hyponatremia with a repeat sodium 122 potassium 5.5 chloride 88 BUN 72 creatinine 1.56. Serum osmolarity continues to remain high 305 continue Lasix 40 IV twice a day. Solu-Medrol reduced to every 8 8 hours 60 mg. Nephrology recommendation appreciated 06/29: Repeat chest x-ray reveals cardiomegaly with right greater than left bilateral lower lung acute infiltrates and/or atelectasis with right-sided volume loss remain present. No significant change from yesterday. Patient is followed closely by nephrology with plan to continue IV Lasix encourage oral protein intake and repeat labs tomorrow. Patient has seen by psychiatry with expectation of some cognitive clearing so they can expand the psychiatric assessment. Patient is still quite confused unable to answer questions and follow commands. He has been afebrile, heart rate 88, blood pressure 106/59, pulse ox 97% on 4 L nasal cannula. Sodium 128, potassium 4.0, chloride 85, CO2 38, BUN 63 creatinine 1.32. Blood sugars are running between 100 4891. TSH 1.250. Urinalysis negative for infection. Sodium 38. 06/30: The patient is awake this morning. He knows where he is at. He states he normally drinks a fifth of liquor per day. He is able to verbalize that he would like to have it inhaler when he leaves the hospital. Patient is followed by pulmonary medicine Repeat chest x-ray reveals improved aeration at the left base. Continued extensive consolidation or atelectasis of the right lower lobe. Patient has been afebrile, heart rate 79, blood pressure 126/76, pulse ox 92% on 3 L. retirement plan counselor is atrial fibrillation with controlled rate. Repeat blood work reveals hemoglobin 9.7, platelet count 129. Sodium 132, potassium 3.1, chloride 89, CO2 39, BUN 60 and creatinine 1.03. Blood sugars are running between 172 and 222. Patient is having good urine output. 07/01: Patient's mental status is improving. He is able to answer questions appropriately. Patient has been afebrile, heart rate in the 80s to 100s, blood pressure 118/60, pulse ox 90% on 3 L nasal cannula. Capillary blood glucose running between 160 and 358. Levemir 10 units at bedtime added. Zaragoza catheter remains in place. Technology Professional recommended continuing IV Lasix encourage oral protein intake.. 07/02: Patient is verbalizing that he still not feeling well enough to go home today. He is awake alert and oriented 3. His mental status is significantly improved. His plan is to return to his current living situation and social work has been working with him on this. Patient apparently has an oxygen concentrator but does not use it. We will be making arrangements for home oxygen therapy. He is pulse oxing 97% on 3 L. Heart rate is running in the 100 and teens to 121. Blood pressure 114/51. He has been afebrile. Low-dose Lopressor will be added to Cardizem for rate control for atrial fibrillation. Patient has had no signs of bleeding, eliquis will be started. 07/03: Patient is having drop in blood pressure with lightheadedness. This morning blood pressure 1 was 78/42. We've ordered a fluid bolus of 250 ML's due to history of heart failure, hold Cardizem, Lasix, metoprolol. Noted the patient had been taken off Solu-Medrol on 07/01 by pulmonary medicine. Cortisone level be checked and patient will be started on Solu-Cortef 100 mg IV every 8 hours. Repeat blood work reveals sodium 132, potassium 4.1, chloride 87, CO2 38, BUN 100 and creatinine 1.13. Blood sugars are running between 117 and 155. No new plan from pulmonary medicine. Patient has been seen by psychiatry with recommendations to monitor for alcohol withdrawal with Ativan when necessary on [facility] protocol. Zoloft 50 mg daily was added and melatonin 5 mg at bedtime. 07/06: Over the weekend, patient developed GI bleed, eliquis was placed on hold and patient underwent EGD with Dr. Kaiser finding acute gastric ulcerations and bleeding, acute duodenal ulcerations with bleeding, acute severe erosive esophagitis from candidiasis, gastroesophageal reflux disease. Biopsies are pending. Patient was also seen by cardiology for A. fib with episode of RVR. Solu Cortef will be discontinued. Hemoglobin came back today at 6.5 and patient will be transfused 1 unit of packed RBCs. Echocardiogram reveals EF of 50-55%, mild mitral regurgitation, moderate to severe tricuspid regurgitation, severe pulmonary hypertension with RVSP 76.53 mmHg. Chest x-ray reveals suspected new small left effusion with slight worsening in patchy left basilar atelectasis and/or consolidation. Continued extensive right lower lobe consolidation. Follow-up to ensure clearance of this finding to exclude possibility of lobar collapse secondary to central obstructing lesion. Possible small right effusion. Patient is also followed by pulmonary medicine and nephrology. 07/07: Patient had increased confusion last evening dose of Ativan was given. He also had decreased blood pressure and a run of V. tach 14 beats that was self- limited. Patient is not eating very much because he is on a clear liquid diet and does not like it. He is requesting Ativan which is not required on the CIWA protocol at this point. Librium will be started,CIWA protocol will be discontinued. We'll increase Zoloft to 100 mg daily and add Remeron 50 mg at bedtime. Repeat blood work reveals WBC 10.1, hemoglobin 8.2. Sodium 131, potassium 3.8, chloride 92, CO2 37, BUN 73 creatinine 1.2. Blood sugars are running between 76 and 166. General surgery is planning to advance diet to full liquids. Cardiology has signed off this case. ROS Constitutional: Denies chills, Denies fever, reports dizziness, reports lightheadedness, endorses lethargy Denies poor appetite, endorses weakness, Denies weight loss Eyes: denies decreased vision, denies diplopia, denies discharge Ears: deny: decreased hearing Ears, nose, mouth and throat: Denies dental pain, Denies headache, Denies nasal discharge, Denies nose pain Cardiovascular: Denies chest pain, Denies decreased exercise tolerance, Denies edema, Denies high blood pressure, Denies irregular heart beat, Denies palpitations, Denies paroxysmal nocturnal dyspnea, Denies rapid heart beat, Denies shortness of breath Respiratory: Endorses dyspnea, Denies home oxygen, Denies wheezing Gastrointestinal: Denies abdominal pain, Denies change in bowel habits, Denies coffee ground emesis, Denies early satiety, Denies excessive gas, Denies heartburn, Denies hematemesis, Denies hematochezia, Denies loss of appetite, Denies nausea, Denies vomiting Genitourinary: Denies dysuria, Denies flank pain, Denies kidney stones, Denies menorrhagia, Denies urgency, Denies urinary frequency Musculoskeletal: Denies gait dysfunction, Denies limitation of motion, Denies morning stiffness, Denies muscle cramps Integumentary: Denies rash, Denies wounds, Denies brittle nails, Denies change in hair/nails, Denies darkening of skin Neurological: Denies balance difficulties, Denies change in speech, Denies d ouble vision, noted mental status change, noted gait dysfunction, Denies loss of vision, Denies motor disturbance, Denies numbness, Denies paralysis, Denies paresthesias, Denies seizures Psychiatric: Reports anxiety, reports depression Endocrine: Denies excessive sweating, Denies excessive thirst, Denies high blood sugars, Denies palpitations Hematologic/Lymphatic: Denies easy bruising, Denies lymphadenopathy Physical exam - Constitutional General appearance: Awake, 61-year-old male, no acute distress noted - EENT Eyes: anicteric sclerae, PERRLA, normal appearance conjunctival injection ENT: hearing grossly normal - Neck Neck: no lymphadenopathy, normal ROM, no other, no rigidity, no stridor, no thyromegaly - Respiratory Respiratory: Decreased air entry with bibasilar Crackles improved wheezing - Cardiovascular Rhythm: Irregularly irregular tachycardic Heart sounds: normal: S1, S2 Abnormal Heart Sounds: no systolic murmur, no diastolic murmur, no rub, no S3 Gallop, no S4 Gallop, no click, no other - Gastrointestinal General gastrointestinal: normal bowel sounds, soft nontender but distended - Integumentary Integumentary: T, peripheral pulses 2+ with less than 2 second capillary refill, purplish discoloration of toes - Neurologic patient is cooperative, does move all extremities - Musculoskeletal Musculoskeletal: Gait could not be assessed strength equal bilaterally - Psychiatric PsychiatriC Alert oriented 3 Assessment and plan #1 acute metabolic encephalopathy secondary to alcohol intoxication and hyponatremia and elevated ammonia levels. Fall precautions. #2 acute alcohol intoxication with alcohol dependence with history of alcohol withdrawal including DTs alcohol withdrawal protocol initiated. Vitamin supplemented. CIWA protocol discontinued, patient started on Librium. #3 acute suicidal thoughts. Psychiatry consult appreciated and patient started on Zoloft will be increased and Remeron added and melatonin. #4 thrombocytopenia secondary to alcohol abuse and liver dysfunction continue to monitor hold anticoagulants #5 hyperosmolar hyponatremia secondary to alcohol nephrology consult appreciated. Continue po Lasix 40 mg every 12 hours. #6 acute hypoxic respiratory failure with evidence of aspiration pneumonia, acute diastolic heart failure. Continue I&O monitoring daily weights. Continue DuoNeb treatments #7 acute COPD exacerbation. Continue DuoNeb's as needed for shortness of breath. Sputum culture ordered. Pulmonary consult appreciated #8 microscopic bleed per rectum positive fecal occult hemoglobin stable continue monitor CBC may be related to gastritis secondary to alcohol abuse, Protonix 40 twice daily #9 polysubstance abuse urine drug screen positive for meth and THC. Continue to monitor vitals. EKG negative for any ST or T-wave changes #10 acute kidney injury secondary to AtN. #11 acute A. fib with RVR, chronic persistent. Continue Cardizem CD 120 mg daily. Lopressor 12.5 mg twice daily. #10 acute GI bleed secondary to gastric ulcerations, duodenal ulceration status post blood transfusion, status post EGD. Continue Carafate 1 g 3 times daily, Protonix 40 mg IV push twice daily. #11code status full code #12 DVT DISCHARG PLAN Home this week Impression and plan of care have been directed as dictated by the signing physician. Leticia Sweet nurse practitioner acting as scribe for signing physician. Objective - Vital Signs Vital signs: Vital Signs Temp 97.9 F 07/07/21 11:30 Pulse 78 07/07/21 11:30 Resp 16 07/07/21 11:30 BP 109/69 07/07/21 11:30 Pulse Ox 100 07/07/21 11:30 Intake & Output 07/06/21 07/07/21 07/07/21 18:59 06:59 18:59 Intake Total 1862 310 Output Total 1575 500 600 Balance 287 -190 -600 Intake: IV 200 Oral 1662 Blood Product 0 310 Rc As-1 Unit 0 310 [id number] Output: Urine 1575 500 600 Other: Voiding Method Indwelling Catheter Indwelling Catheter Indwelling Catheter - Labs CBC & Chem 7: 07/07/21 07:33 07/07/21 07:33 Labs: Abnormal Lab Results - Last 24 Hours (Table) 07/04/21 07/06/21 07/06/21 Range/Units 14:17 09:40 16:32 RBC 2.08 L (4.30-5.90) m/uL Hgb 6.5 L* (13.0-17.5) gm/dL Hct 20.3 L (39.0-53.0) % RDW 21.9 H (11.5-15.5) % Sodium (137-145) mmol/L Chloride (98-107) mmol/L Carbon Dioxide (22-30) mmol/L BUN (9-20) mg/dL POC Glucose (mg/dL) 166 H (75-99) mg/dL Calcium (8.4-10.2) mg/dL Crossmatch See Detail 07/06/21 07/07/21 07/07/21 Range/Units 20:13 07:33 07:33 RBC 2.67 L (4.30-5.90) m/uL Hgb 8.2 L D (13.0-17.5) gm/dL Hct 25.6 L (39.0-53.0) % RDW 20.8 H (11.5-15.5) % Sodium 131 L (137-145) mmol/L Chloride 92 L (98-107) mmol/L Carbon Dioxide 37 H (22-30) mmol/L BUN 73 H (9-20) mg/dL POC Glucose (mg/dL) 142 H (75-99) mg/dL Calcium 8.2 L (8.4-10.2) mg/dL Crossmatch
[2021-07-07 16:57] LABS: Glucose,Whole Blood 155 mg/dL (75-99)
[2021-07-07 20:38] LABS: Glucose,Whole Blood 108 mg/dL (75-99)
[2021-07-07] MEDS: INSULIN DETEMIR (LEVEMIR) 100 UNIT/ML SYR SQ SCH (20:47)
[2021-07-07] MEDS: MIRTAZAPINE 15 MG TAB PO SCH (20:48)
[2021-07-08 05:52] LABS: Glucose,Whole Blood 86 mg/dL (75-99)
[2021-07-08] MEDS: ACETAMINOPHEN TAB 325 MG TAB PO PRN ×2 (05:53→19:01)
[2021-07-08] MEDS: INSULIN ASPART (NovoLOG) 100 UNIT/ML VIAL SQ SCH ×4 (05:53→20:06)
[2021-07-08] MEDS: SUCRALFATE 1 GM TAB PO SCH ×3 (05:54→17:33)
[2021-07-08] MEDS: MIDODRINE 5 MG TAB PO SCH ×3 (05:54→17:33)
[2021-07-08] MEDS: IPRATROPIUM-ALBUTEROL 3 ML NEB INHALATION SCH ×5 (07:39→20:13)
[2021-07-08] MEDS: PANTOPRAZOLE 40 MG/10 ML VIAL IVP SCH ×2 (08:00→20:09)
[2021-07-08] MEDS: NICOTINE 21MG/24HR PATCH TRANSDERM SCH (08:00)
[2021-07-08] MEDS: NYSTATIN 100,000 UNIT/ML SUSP 500,000 UNIT/5 ML CUP PO SCH ×4 (08:01→20:09)
[2021-07-08] MEDS: SERTRALINE 100 MG TAB PO SCH (08:01)
[2021-07-08] MEDS: DILTIAZEM CD 120 MG CAP.ER.24H PO SCH ×2 (08:18→20:09)
[2021-07-08] MEDS: SODIUM FERRIC GLUCONAT-SUCROSE 125 MG in SODIUM CHLORIDE 0.9% 100 ML IVPB SCH (08:18)
[2021-07-08] MEDS: METOPROLOL TARTRATE 12.5 MG TAB PO SCH ×2 (08:18→20:09)
[2021-07-08 08:31] LABS: Calcium 8.3 mg/dL (8.4-10.2); Magnesium 1.9 mg/dL (1.6-2.3); Potassium 3.3 mmol/L (3.5-5.1)
[2021-07-08] MEDS ORDERED: POTASSIUM CHLORIDE ER 20 MEQ TAB.ER PO STA (10:03)
--- NOTE | 2021-07-08 11:00 | P.PN ---
Subjective Progress Note Date: 07/08/21 Principal diagnosis: GI bleed Patient seen and examined as a follow-up for GI bleed. He underwent EGD with Dr. Reyes with findings of gastric and fundal ulcer. States he had a small bowel movement yesterday evening which he states was dark, no blood noted. Hemoglobin from yesterday was stable. Today's labs are currently pending. Objective - Vital Signs Vital signs: Vital Signs Temp 98.0 F 07/08/21 07:58 Pulse 60 07/08/21 07:58 Resp 16 07/08/21 07:58 BP 105/63 07/08/21 07:58 Pulse Ox 100 07/08/21 07:58 Intake & Output 07/07/21 07/08/21 07/08/21 18:59 06:59 18:59 Output Total 800 Balance -800 Output: Urine 800 Other: Voiding Method Indwelling Catheter Bedside Commode Urinal # Voids 2 - Exam General appearance: The patient is alert, oriented, appears in no acute distress. HET: Head is normocephalic and atraumatic. Conjunctiva pink. Sclera anicteric. Neck: Supple without lymphadenopathy. Abdomen: Soft, mild tenderness to palpation, nondistended with bowel sounds. No guarding or rigidity. Extremities: Normal skin color and turgor. No pedal edema Skin: No rashes, no jaundice Neurological: No focal deficits. Alert and oriented -3. - Labs CBC & Chem 7: 07/07/21 07:33 07/08/21 06:28 Labs: Abnormal Lab Results - Last 24 Hours (Table) 07/07/21 07/07/21 07/07/21 Range/Units 07:33 07:33 16:56 RBC 2.67 L (4.30-5.90) m/uL Hgb 8.2 L D (13.0-17.5) gm/dL Hct 25.6 L (39.0-53.0) % RDW 20.8 H (11.5-15.5) % Sodium 131 L (137-145) mmol/L Chloride 92 L (98-107) mmol/L Carbon Dioxide 37 H (22-30) mmol/L BUN 73 H (9-20) mg/dL POC Glucose (mg/dL) 155 H (75-99) mg/dL Calcium 8.2 L (8.4-10.2) mg/dL 07/07/21 Range/Units 20:37 RBC (4.30-5.90) m/uL Hgb (13.0-17.5) gm/dL Hct (39.0-53.0) % RDW (11.5-15.5) % Sodium (137-145) mmol/L Chloride (98-107) mmol/L Carbon Dioxide (22-30) mmol/L BUN (9-20) mg/dL POC Glucose (mg/dL) 108 H (75-99) mg/dL Calcium (8.4-10.2) mg/dL Assessment and Plan (1) Acute blood loss anemia (ABLA) Narrative/Plan: 61-year-old male who was admitted to the hospital 10 days ago for unresponsiveness and altered mental status changes was later found to be anemic. He gradually had a decline in his hemoglobin which then dropped from 9.7-4.3. Apparently the patient had been having some black stools for 2-3 days as well. Gen. surgery was initially consulted and he underwent an EGD today that did show acute gastric ulcer as well as acute duodenal ulceration that had evidence of bleeding. The patient was started on Carafate and Protonix. He is still complaining of some abdominal discomfort. He has not had any nausea or vomiting. Hemoglobin this morning was 6.5 he is status post 3 units of PRBC transfusion with one ordered. We will continue to monitor patient if he has any further evidence of GI bleed or drop in hemoglobin we may need to have repeat EGD with treatment. Current Visit: Yes Status: Acute Code(s): D62 - ACUTE POSTHEMORRHAGIC ANEMIA SNOMED Code(s): 830729270 (2) Gastric ulcer Current Visit: Yes Status: Acute Code(s): K25.9 - GASTRIC ULCER, UNSP ACUTE OR CHRONIC, W/O HEMOR OR PERF SNOMED Code(s): 212911081 (3) Duodenal ulcer Current Visit: Yes Status: Acute Code(s): K26.9 - DUODENAL ULCER, UNSP ACUTE OR CHRONIC, W/O HEMOR OR PERF SNOMED Code(s): 07150289 (4) Atrial fibrillation Current Visit: Yes Status: Acute Code(s): I48.91 - UNSPECIFIED ATRIAL FIBRILLATION SNOMED Code(s): 13498469 Plan: 1. Continue symptomatic and supportive care 2. Agree with Carafate 1 g 3 times a day as well as Protonix twice a day 3. Agree patient is not a good candidate for anticoagulation due to bleeding ulcers 4. Daily CBC, transfuse for hemoglobin 6.5 or less according to protocol 5. Patient is status post EGD 6. Advance diet as tolerated Thank you for this consultation, we will be on standby if he has any further bleeding. Dr. Claudia Farooq I agree with the dictator's note, documented as a scribe by Mandie Hooks.
--- NOTE | 2021-07-08 11:20 | P.PN ---
Subjective Patient is seen in follow-up for hyponatremia and acute kidney injury. Sodium level 133 today. Renal function fairly stable. Has been voiding on his own. Zaragoza catheter removed. Denies any active bleeding today. On 3 L is a cannula. Hemoglobin 8.2 yesterday. No active bleeding. Vital signs stable. Gen: The patient appeared well nourished and normally developed. HEENT: Head exam is unremarkable. LUNGS: Breath sounds decreased. HEART: Rate and Rhythm are regular. ABDOMEN: Soft, no distention. EXTREMITITES: Trace edema. Objective - Vital Signs Vital signs: Vital Signs Temp 98.0 F 07/08/21 07:58 Pulse 60 07/08/21 07:58 Resp 16 07/08/21 07:58 BP 105/63 07/08/21 07:58 Pulse Ox 100 07/08/21 07:58 Intake & Output 07/07/21 07/08/21 07/08/21 18:59 06:59 18:59 Intake Total 100 Output Total 800 Balance -800 100 Intake: IV 100 Sodium Ferric Gluconat- 100 Sucrose 125 mg In Sodium Chloride 0.9% 100 ml @ 100 mls/hr IVPB DAILY [facility] Rx#:[id number] Output: Urine 800 Other: Voiding Method Indwelling Catheter Bedside Commode Urinal # Voids 2 - Labs CBC & Chem 7: 07/07/21 07:33 07/08/21 06:28 Labs: Abnormal Lab Results - Last 24 Hours (Table) 07/07/21 07/07/21 07/08/21 Range/Units 16:56 20:37 06:28 Sodium 133 L (137-145) mmol/L Potassium 3.3 L (3.5-5.1) mmol/L Chloride 89 L (98-107) mmol/L Carbon Dioxide 39 H (22-30) mmol/L BUN 62 H (9-20) mg/dL Creatinine 1.38 H (0.66-1.25) mg/dL POC Glucose (mg/dL) 155 H 108 H (75-99) mg/dL Calcium 8.3 L (8.4-10.2) mg/dL Assessment and Plan Plan: Assessment: 1. Hypervolemic hyponatremia improved with diuresis. Improved. Also component of poor solute intake. Sodium level 133. 2. Volume overload. Improved with diuresis. 3. Alcohol abuse. 4. Acute kidney injury secondary to hemodynamic ATN and acute blood loss anemia. Creatinine 1.38 today. Elevated BUN secondary to GI bleed as well as steroids. Improving. Baseline creatinine near 1. 5. Metabolic alkalosis from diuresis. Stable. Diuretics held. 6. Acute GI bleed receiving blood transfusions. He did receive IV DDAVP July 04. Eliquis stopped. Surgery following. EGD showed bleeding duodenal and gastric ulcerations. 7. Hypotension due to severe anemia. Cortisol level not low. Better. 8. Hypokalemia from diuresis and poor intake. Plan: Continue hold Lasix for now. Encouraged oral intake. Maintain fluid restriction. Avoid nephrotoxins. Continue to monitor renal function and urine output. Maintain midodrine - hold for systolic blood pressure above 110 Replace potassium. Monitor hemoglobin and transfuse as needed.
[2021-07-08 11:35] LABS: Glucose,Whole Blood 91 mg/dL (75-99)
[2021-07-08 11:43] LABS: Anisocytosis Moderate; HCT 27.4 % (39.0-53.0); HGB 8.2 gm/dL (13.0-17.5); Hypochromasia Moderate; MCH 30.6 pg (25.0-35.0); MCHC 30.1 g/dL (31.0-37.0); Macrocytosis Moderate; Mean Platelet Volume 10.4; Platelet Count 231 k/uL (150-450); RDW 20.3 % (11.5-15.5)
[2021-07-08 11:46] LABS: MCV 101.6 fL (80.0-100.0)
[2021-07-08] MEDS: chlordiazePOXIDE 5 MG CAPSULE PO PRN (13:28)
--- NOTE | 2021-07-08 13:43 | P.PN ---
<Helen Mcnamara - Last Filed: 07/08/21 13:41> Subjective Progress Note Date: 07/08/21 CHIEF COMPLAINT: Acute anemia HISTORY OF PRESENT ILLNESS: The patient is a 61 year old male admitted to 06/26/2021 after being found unresponsive. Patient has been hospitalized for the last 9 days. Patient has history of heavy alcohol abuse. Additional workup demonstrated new onset atrial fibrillation. Patient was admitted and placed on blood thinner. Hemoglobin on admission was 12.7. Hemoglobin did drop to 4.0. Patient has received a total of 4 units of blood during his admission. Hemoglobin yesterday 6.5 up to 8.2. He has received IV iron and did receive a unit of blood yesterday. Patient is status post EGD demonstrating Acute gastric ulcerations with bleeding, Acute duodenal ulceration with bleeding, Acute severe erosive esophagitis from candidiasis and Gastroesophageal reflux disease. Patient complaining of epigastric abdominal pain. Reports poor oral intake and nausea. He also had reported still having black stools. The stools have not been witnessed by nursing staff. Hemoglobin stable at 8.2 PHYSICAL EXAM: VITAL SIGNS: Reviewed GENERAL: Well-developed in no acute distress. HEENT: No sclera icterus. Extraocular movements grossly intact. Moist buccal mucosa. Head is atraumatic, normocephalic. Hears conversational speech. No nasal drainage. NECK: Supple without lymphadenopathy. CHEST: Non-labored respirations and equal bilateral excursions. CARDIOVASCULAR: Palpable 2+ radial pulses. ABDOMEN: Soft. Nondistended. Epigastric tenderness with palpation MUSCULOSKELETAL: No clubbing or cyanosis. NEUROLOGIC: No focal or lateralizing signs. Cranial nerves II through XII grossly intact. PSYCH: Appropriate affect. Alert and oriented to person, place and time. SKIN: Well perfused. Good skin turgor. ASSESSMENT: 1. Acute blood loss anemia secondary to bleeding from gastric ulcer and duodenal ulcer. EGD demonstrated acute gastric ulcerations with bleeding, Acute duodenal ulceration with bleeding, Acute severe erosive esophagitis from candidiasis and Gastroesophageal reflux disease. 2. Anticoagulant exposure 3. History of heavy alcohol abuse disorder 4. Hyponatremia PLAN: -We'll downgrade diet nothing by mouth except for ice chips and medications due to patient's epigastric pain and black stools -await biopsy results -Continue Protonix and Carafate -Avoid all anticoagulation due to severe acute blood loss anemia and multiple ulcerations in the stomach and duodenal -Completed IV iron transfusions -Continue nystatin swish and swallow -Continue supportive care -Continue to monitor hemoglobin Physician Flight Test Supervisor note has been reviewed by physician. Signing provider agrees with the documented findings, assessment, and plan of care. Objective - Vital Signs Vital signs: Vital Signs Temp 98.0 F 07/08/21 07:58 Pulse 101 H 07/08/21 12:10 Resp 16 07/08/21 07:58 BP 91/55 07/08/21 13:28 Pulse Ox 79 L 07/08/21 12:10 Intake & Output 07/07/21 07/08/21 07/08/21 18:59 06:59 18:59 Intake Total 100 Output Total 800 Balance -800 100 Intake: IV 100 Sodium Ferric Gluconat- 100 Sucrose 125 mg In Sodium Chloride 0.9% 100 ml @ 100 mls/hr IVPB DAILY [facility] Rx#:[id number] Output: Urine 800 Other: Voiding Method Indwelling Catheter Bedside Commode Urinal # Voids 2 - Labs CBC & Chem 7: 07/08/21 06:28 07/08/21 06:28 Labs: Abnormal Lab Results - Last 24 Hours (Table) 07/07/21 07/07/21 07/08/21 Range/Units 16:56 20:37 06:28 RBC (4.30-5.90) m/uL Hgb (13.0-17.5) gm/dL Hct (39.0-53.0) % MCV (80.0-100.0) fL MCHC (31.0-37.0) g/dL RDW (11.5-15.5) % Sodium 133 L (137-145) mmol/L Potassium 3.3 L (3.5-5.1) mmol/L Chloride 89 L (98-107) mmol/L Carbon Dioxide 39 H (22-30) mmol/L BUN 62 H (9-20) mg/dL Creatinine 1.38 H (0.66-1.25) mg/dL POC Glucose (mg/dL) 155 H 108 H (75-99) mg/dL Calcium 8.3 L (8.4-10.2) mg/dL 07/08/21 Range/Units 06:28 RBC 2.70 L (4.30-5.90) m/uL Hgb 8.2 L (13.0-17.5) gm/dL Hct 27.4 L (39.0-53.0) % MCV 101.6 H D (80.0-100.0) fL MCHC 30.1 L (31.0-37.0) g/dL RDW 20.3 H (11.5-15.5) % Sodium (137-145) mmol/L Potassium (3.5-5.1) mmol/L Chloride (98-107) mmol/L Carbon Dioxide (22-30) mmol/L BUN (9-20) mg/dL Creatinine (0.66-1.25) mg/dL POC Glucose (mg/dL) (75-99) mg/dL Calcium (8.4-10.2) mg/dL <Lauren Reyes - Last Filed: 07/09/21 16:04> Subjective CHIEF COMPLAINT: Acute anemia HISTORY OF PRESENT ILLNESS: The patient is a 61 year old male who during hospitalization developed acute blood loss anemia after anticoagulation for atrial fibrillation with rapid ventricular response. Upper endoscopy demonstrated candidiasis esophagus including duodenal and gastric ulcers. Per nursing, no active bleeding. Patient reports otherwise. REVIEW OF ORGAN SYSTEMS: No fevers or chills. No acute chest pain. PHYSICAL EXAM: VITALS: Reviewed CONSTITUTIONAL: Well developed and in no acute distress. EYES: Conjuctivae without sclera icterus. Extraocular movements grossly intact. HEAD, EARS, NOSE, THROAT: Moist buccal mucosa. Head is atraumatic, normocephalic. Hears conversational speech. No nasal drainage. RESPIRATORY: Non-labored respirations and equal bilateral excursions. No gross wheezes. CARDIOVASCULAR: Palpable 2+ radial pulses. ABDOMEN: No peritonitis. Mild epigastric tenderness. MUSCULOSKELETAL: No clubbing cyanosis. SKIN: Warm and well perfused with good skin turgor. NEUROLOGIC: Cranial nerves II through XII grossly intact. No focal or lateralizing signs. PSYCH: Alert to self. CLINCAL LABS: Reviewed. Hemoglobin stable at 8.2 unchanged from yesterday. ASSESSMENT: 1. Acute blood loss anemia status post blood transfusion 2. Anticoagulant exposure 3. History of heavy alcohol abuse disorder 4. Acute gastric and duodenal ulcers with bleeding PLAN: 1. With his persistent epigastric abdominal pain, recommend nothing by mouth except ice chips for 24 hours to settle any underlying bleeding. 2. Avoid all anticoagulants. 3. Complete iron infusions for acute blood loss anemia Objective - Vital Signs Vital signs: Vital Signs Temp 97.9 F 07/09/21 08:54 Pulse 65 07/09/21 12:00 Resp 16 07/09/21 12:00 BP 90/54 07/09/21 12:00 Pulse Ox 96 07/09/21 12:00 Intake & Output 07/08/21 07/09/21 07/09/21 18:59 06:59 18:59 Intake Total 280 120 120 Output Total 1575 425 Balance -1295 -305 120 Intake: IV 100 Sodium Ferric Gluconat- 100 Sucrose 125 mg In Sodium Chloride 0.9% 100 ml @ 100 mls/hr IVPB DAILY [facility] Rx#:[id number] Oral 180 120 120 Output: Urine 1575 425 Uretheral (Zaragoza) 525 Other: Voiding Method Bedside Commode Indwelling Catheter Urinal - Labs CBC & Chem 7: 07/09/21 14:36 07/09/21 07:03 Labs: Abnormal Lab Results - Last 24 Hours (Table) 07/08/21 07/09/21 07/09/21 Range/Units 20:05 06:16 06:31 WBC (3.8-10.6) k/uL RBC (4.30-5.90) m/uL Hgb (13.0-17.5) gm/dL Hct (39.0-53.0) % MCV (80.0-100.0) fL RDW (11.5-15.5) % Neutrophils # (1.3-7.7) k/uL Lymphocytes # (1.0-4.8) k/uL Sodium (137-145) mmol/L Chloride (98-107) mmol/L Carbon Dioxide (22-30) mmol/L BUN (9-20) mg/dL POC Glucose (mg/dL) 101 H 61 L 61 L (75-99) mg/dL 07/09/21 07/09/21 07/09/21 Range/Units 06:36 06:49 07:03 WBC 11.4 H (3.8-10.6) k/uL RBC 2.92 L (4.30-5.90) m/uL Hgb 9.3 L (13.0-17.5) gm/dL Hct 29.4 L (39.0-53.0) % MCV 100.9 H (80.0-100.0) fL RDW 20.9 H (11.5-15.5) % Neutrophils # (1.3-7.7) k/uL Lymphocytes # (1.0-4.8) k/uL Sodium (137-145) mmol/L Chloride (98-107) mmol/L Carbon Dioxide (22-30) mmol/L BUN (9-20) mg/dL POC Glucose (mg/dL) 50 L 56 L (75-99) mg/dL 07/09/21 07/09/21 07/09/21 Range/Units 07:03 11:36 14:36 WBC (3.8-10.6) k/uL RBC 2.56 L (4.30-5.90) m/uL Hgb 8.3 L (13.0-17.5) gm/dL Hct 26.5 L (39.0-53.0) % MCV 103.3 H (80.0-100.0) fL RDW 21.6 H (11.5-15.5) % Neutrophils # 8.5 H (1.3-7.7) k/uL Lymphocytes # 0.9 L (1.0-4.8) k/uL Sodium 134 L (137-145) mmol/L Chloride 95 L (98-107) mmol/L Carbon Dioxide 33 H (22-30) mmol/L BUN 52 H (9-20) mg/dL POC Glucose (mg/dL) 159 H (75-99) mg/dL Assessment and Plan (1) Acute blood loss anemia (ABLA) Current Visit: Yes Status: Acute Code(s): D62 - ACUTE POSTHEMORRHAGIC ANEMIA SNOMED Code(s): 910214389 (2) Atrial fibrillation Current Visit: Yes Status: Acute Code(s): I48.91 - UNSPECIFIED ATRIAL FIBRILLATION SNOMED Code(s): 31301508 (3) COPD (chronic obstructive pulmonary disease) Current Visit: No Status: Acute Code(s): J44.9 - CHRONIC OBSTRUCTIVE PULMONARY DISEASE, UNSPECIFIED SNOMED Code(s): 78492763 (4) Duodenal ulcer hemorrhagic Current Visit: Yes Status: Acute Code(s): K26.4 - CHRONIC OR UNSPECIFIED DUODENAL ULCER WITH HEMORRHAGE SNOMED Code(s): 49765630 (5) Gastric ulcer with hemorrhage Current Visit: Yes Status: Acute Code(s): K25.4 - CHRONIC OR UNSPECIFIED GASTRIC ULCER WITH HEMORRHAGE SNOMED Code(s): 57348685
[2021-07-08 14:14] LABS: Lymphocytes # (M) 1.49 k/uL (1.0-4.8); Metamyelocytes # (M) 0.09 k/uL (0); Metamyelocytes % 1 %; Monocytes # (M) 0.74 k/uL (0-1.0); Neutrophils # (M) 7.07 k/uL (1.3-7.7); Neutrophils % (M) 76 %; Nucleated Red Blood Cells 7 /100 WBC (0-0); Total Cells Counted 200; WBC 9.3 k/uL (3.8-10.6)
[2021-07-08 14:16] LABS: Basophilic Stippling Present; Polychromasia Present
--- NOTE | 2021-07-08 15:20 | P.PN ---
Subjective Progress Note Date: 07/08/21 This is a 61-year-old male patient with a history of atrial fibrillation, hypertension, depression, chronic obstructive pulmonary disease with chronic and ongoing tobacco dependence, D we have a alcohol use, marijuana use. He was brought into the emergency room yesterday after his roommate found him unre sponsive. In the emergency room he was more awake he denied even wanted to be at the hospital. He denied any suicidal/homicidal ideations. He was having issues with shortness of breath. No chest pain. No abdominal pain. No nausea or vomiting. Computed tomography scan of the brain revealed no acute intracranial hemorrhage or midline shift. There is mild diffuse age-related cerebral atrophy and moderate nonspecific white matter changes. Chest x-ray revealed evidence of cardiomegaly with tiny bilateral pleural effusions and mild interstitial edema suspected CHF. EKG revealed atrial fibrillation with a right bundle branch block and white count 4.5. Hemoglobin 12.0. Platelet count 76, 000. Sodium 120. Potassium 5.0. BUN 41. Creatinine 1.88. Troponins negative 2. ProBNP 2300. Serum osmolality 332. Urine osmolality 382. Urine random sodium less than 20. Stool for occult blood positive. Urine drug screen positive for methamphetamines and marijuana. The patient is seen today in consultation on the selective care unit. He is currently resting fairly comfortably in bed. He is confused at times. Trying to get out of bed. mass spectrometry specialist is at the bedside. He is maintaining O2 saturations at 90% on 3 L/m per nasal cannula. He's been afebrile. Hemodynamically stable. Today's chest x- ray reveals a right lower lobe opacity with the left lower lobe opacity developi ng infectious process. Stable cardiomegaly and mild pulmonary vascular congestion. Evidence of COPD. He's been initiated on IV Solu-Medrol, bronchodilators, IV diuretics. NicoDerm patch in place. He is in the [facility] protocol. On 06/28/2021 patient seen in follow-up on selective care unit, he is currently lethargic, he has just received some IV Ativan for alcohol withdrawal symptoms. Patient has been receiving daily dose of IV Lasix 40 mg, he is on IV Solu- Medrol, Zosyn for possibility of aspiration related pneumonia. Today's chest x- ray showing right lower lobe pneumonia or atelectasis, and we'll effusion was difficult to exclude. He is currently on BiPAP support with pressures of 14 and 6 and 40% and his pulse ox is 97%. Lung sounds are diminished bilaterally, with expiratory wheezing. Overall seems to be in no acute distress, he is arousable to verbal and tactile stimulation. Labs have been reviewed, patient had a set of blood gases done earlier showing pO2 of 262, pCO2 of 65 and pH of 7.26 this was done on FiO2 of 100% and FiO2 has since been dropped down to 40%, serum s odium is 122, potassium is 5.5, chloride is 88, BUN of 72 and creatinine is 1.56. On 06/29/2021 patient seen in follow-up. Patient is currently on 4 L of oxygen the pulse ox of 97%, he sleepy, still confused, but not agitated, lung sounds are diminished, without rhonchi or wheezing, he is off BiPAP support, he is asking for water, he feels thirsty. Vitals is having stable overnight, afebrile, his chest x-ray shows cardiomegaly with right greater than left bilateral lower lung acute infiltrates and/or atelectasis with right-sided volume loss without significant change from one day earlier. His labs have been reviewed, sodium is 128, potassium is 4.0, chloride is 85, CO2 38, BUN is 63, creatinine is 1.32. Sodium is improved, patient has been receiving diuretics, and this is being managed by nephrology on the case, patient is currently on Lasix 40 mg every 12 hours. He remains on IV steroids with Solu-Medrol 60 mg every 6 hours, he is on Zosyn for possibility of aspiration related pneumonia. The patient is seen today 06/30/2021 in follow-up on the selective care unit. He is currently resting comfortably in bed. Awake and alert in no acute distress. He is maintaining O2 saturations in the 90s on 3 L high flow nasal cannula. He's been afebrile. Hemodynamically stable. Chest x-ray reveals improved aeration in the left lung base. Continued extensive consolidation or atelectasis at the right lower lobe. White count 4.9. Hemoglobin 9.7. Platelet count 129,000. Lymphocytes 0.2. Sodium 132. Potassium 3.1. Creatinine 1.03. Glucose 149. He is continued on DuoNeb inhalations, IV diuretics, IV Solu-Medrol, antibiotics in the form of Zosyn. NicoDerm patch in place. Continued in the CI[facility] protocol. The patient is seen today 07/01/2021 in follow-up on selective care unit. He remains awake and alert in no acute distress. Resting fairly comfortably in bed. Maintaining O2 saturations in the 90s on 3 L/m per nasal cannula. Glucose 160. He remains on Zosyn, IV Solu-Medrol, bronchodilators. NicoDerm patch is in place. Remains on IV diuretics. Currently in a -1.9 L balance. Weight is down to 106.2 kg. The patient is seen today 07/05/2021 in follow-up on the selective care unit. Yesterday he was found to be quite anemic and required 3 units of packed red blood cells. He was having dark tarry stools. He was brought back over from the regular medical floor to the selective care unit. He is currently resting fairly comfortably in bed. Less pale today. Feeling a bit stronger. Current hemoglobin 6.5. White count 8.4. Blood glucose 131. He remains on IV Protonix 40 mg twice a day. Continued on Solu-Cortef, bronchodilators. NicoDerm patch in place. The patient is seen today 07/08/2021 in follow-up on the selective care unit. He is currently resting comfortably in bed. Feeling a bit stronger today. His maintaining good O2 saturations in the mid 90s on 3 L nasal cannula. He did desaturate to 79% on room air. He'll continue with oxygen post discharge. He is afebrile. Hemodynamically stable. He is status post 4 units of packed red blood cells this admission. Current hemoglobin 8.2. Currently count 9.3. Platelets 231,000. Sodium 133. Potassium 3.3. Bicarb 39. BUN 62. Creatinine 1.63. Glucose 87. He is continued on bronchodilators. NicoDerm patch in place. EGD results did reveal acute severe erosive esophagitis as well as acute gastric ulcerations with acute duodenal ulcerations. He had been complaining of epigastric abdominal discomfort earlier today. He is being followed by surgical services. Continued on Protonix and Carafate. Objective - Vital Signs Vital signs: Vital Signs Temp 98.0 F 07/08/21 07:58 Pulse 101 H 07/08/21 12:10 Resp 16 07/08/21 07:58 BP 91/55 07/08/21 13:28 Pulse Ox 79 L 07/08/21 12:10 Intake & Output 07/07/21 07/08/21 07/08/21 18:59 06:59 18:59 Intake Total 280 Output Total 800 Balance -800 280 Intake: IV 100 Sodium Ferric Gluconat- 100 Sucrose 125 mg In Sodium Chloride 0.9% 100 ml @ 100 mls/hr IVPB DAILY [facility] Rx#:[id number] Oral 180 Output: Urine 800 Other: Voiding Method Indwelling Catheter Bedside Commode Urinal # Voids 2 - Exam GENERAL EXAM: Awake, alert 61-year-old male patient, on 3 L of oxygen with pulse ox of 95%, no acute distress. HEAD: Normocephalic/atraumatic. EYES: Normal reaction of pupils, equal size. Conjunctiva pink, sclera white. NOSE: Clear with pink turbinates. THROAT: No erythema or exudates. NECK: No masses, no JVD, no thyroid enlargement, no adenopathy. CHEST: No chest wall deformity. Symmetrical expansion. LUNGS: Equal air entry with diminished breath sounds, no crackles, no rhonchi CVS: Regular rate and rhythm, normal S1 and S2, no gallops, no murmurs, no rubs ABDOMEN: Soft, nontender. No hepatosplenomegaly, normal bowel sounds, no guarding or rigidity. EXTREMITIES: No clubbing, no edema, no cyanosis, 2+ pulses and upper and lower extremities. MUSCULOSKELETAL: Muscle strength and tone normal. SPINE: No scoliosis or deformity SKIN: No rashes CENTRAL NERVOUS SYSTEM: Awake, cooperative. No focal deficits, tone is normal in all 4 extremities. - Labs CBC & Chem 7: 07/08/21 06:28 07/08/21 06:28 Labs: Abnormal Lab Results - Last 24 Hours (Table) 07/07/21 07/07/21 07/08/21 Range/Units 16:56 20:37 06:28 RBC (4.30-5.90) m/uL Hgb (13.0-17.5) gm/dL Hct (39.0-53.0) % MCV (80.0-100.0) fL MCHC (31.0-37.0) g/dL RDW (11.5-15.5) % Metamyelocytes # (Man) (0) k/uL Nucleated RBCs (0-0) /100 WBC Sodium 133 L (137-145) mmol/L Potassium 3.3 L (3.5-5.1) mmol/L Chloride 89 L (98-107) mmol/L Carbon Dioxide 39 H (22-30) mmol/L BUN 62 H (9-20) mg/dL Creatinine 1.38 H (0.66-1.25) mg/dL POC Glucose (mg/dL) 155 H 108 H (75-99) mg/dL Calcium 8.3 L (8.4-10.2) mg/dL 07/08/21 Range/Units 06:28 RBC 2.70 L (4.30-5.90) m/uL Hgb 8.2 L (13.0-17.5) gm/dL Hct 27.4 L (39.0-53.0) % MCV 101.6 H D (80.0-100.0) fL MCHC 30.1 L (31.0-37.0) g/dL RDW 20.3 H (11.5-15.5) % Metamyelocytes # (Man) 0.09 H (0) k/uL Nucleated RBCs 7 H (0-0) /100 WBC Sodium (137-145) mmol/L Potassium (3.5-5.1) mmol/L Chloride (98-107) mmol/L Carbon Dioxide (22-30) mmol/L BUN (9-20) mg/dL Creatinine (0.66-1.25) mg/dL POC Glucose (mg/dL) (75-99) mg/dL Calcium (8.4-10.2) mg/dL Assessment and Plan Assessment: 1 Acute altered mental status of unclear etiology, urine drug screen positive for methamphetamines and marijuana, hyponatremia, hypoxemia. Improved. Awake and alert today. 2 Acute hypoxemic respiratory failure secondary to suspected congestive heart failure, COPD exacerbation, early infiltrates and possible apiration pneumonia here chest x-ray showing improvement in the left lung base. Continued cons olidation in the right lower lobe. On 3 L nasal cannula now. 3 Acute anemia requiring 4 units of packed red blood cells. Current hemoglobin 8.2. Stool for occult blood positive. EGD was performed on 07/06/2021 and the patient was found to have acute gastric ulcerations with bleeding, acute duod enal ulceration with bleeding, acute severe erosive esophagitis from candidiasis, gastroesophageal reflux disease. He is currently on Protonix and Carafate. 4 Hyponatremia suspect secondary to daily alcohol use in the improved, currently 133 5 Acute renal failure suspect secondary to dehydration, improved with a creatinine of 1.38 6 Thrombocytopenia secondary to daily alcohol use improved currently 231,000 7 Daily heavy alcohol use 8 Marijuana use 9 Chronic tobacco dependence Plan: The patient was seen and evaluated Current hemoglobin stable at 8.2 Remains on 3 L nasal cannula O2 saturation down to 79% on room air Back to 95% on 3 L Will require home oxygen being set up through [place] More awake and alert, cooperative Titrate down the FiO2 as tolerated Continue bronchodilators Nicoderm patch in place I, the cosigning physician, performed a history & physical examination of the patient. Lungs sounds with bilateral end expiratory wheeze. Maintaining O2 saturations in the 90s on 3 L/m per nasal cannula. I discussed the assessment and plan of care with my nurse practitioner, Tiffanie Marr. I attest to the above note as dictated by her.
[2021-07-08 16:52] LABS: Glucose,Whole Blood 84 mg/dL (75-99)
[2021-07-08 20:06] LABS: Glucose,Whole Blood 101 mg/dL (75-99)
[2021-07-08] MEDS: MIRTAZAPINE 15 MG TAB PO SCH (20:09)
[2021-07-08] MEDS: INSULIN DETEMIR (LEVEMIR) 100 UNIT/ML SYR SQ SCH (20:09)
[2021-07-08] MEDS: HALOPERIDOL LACTATE 5 MG/ML 1 ML VIAL IVP PRN (20:45)
[2021-07-09] MEDS: ACETAMINOPHEN TAB 325 MG TAB PO PRN (02:20)
[2021-07-09 06:17] LABS: Glucose,Whole Blood 61 mg/dL (75-99)
[2021-07-09] MEDS ORDERED: DEXTROSE 50% SYRINGE 50 ML IVP STA (06:26)
[2021-07-09] MEDS: INSULIN ASPART (NovoLOG) 100 UNIT/ML VIAL SQ SCH ×4 (06:30→20:28)
[2021-07-09 06:33] LABS: Glucose,Whole Blood 61 mg/dL (75-99)
[2021-07-09] MEDS: SUCRALFATE 1 GM TAB PO SCH ×3 (06:39→17:09)
[2021-07-09] MEDS: MIDODRINE 5 MG TAB PO SCH ×3 (06:39→17:09)
[2021-07-09 06:43] LABS: Glucose,Whole Blood 50 mg/dL (75-99)
[2021-07-09 06:50] LABS: Glucose,Whole Blood 56 mg/dL (75-99)
[2021-07-09] MEDS ORDERED: GLUCAGON 1 MG/ML VIAL ONE (06:52)
[2021-07-09 07:07] LABS: Glucose,Whole Blood 76 mg/dL (75-99)
[2021-07-09 07:57] LABS: Calcium 8.6 mg/dL (8.4-10.2); Potassium 3.7 mmol/L (3.5-5.1)
[2021-07-09 08:25] LABS: Anisocytosis Moderate; HCT 29.4 % (39.0-53.0); HGB 9.3 gm/dL (13.0-17.5); Hypochromasia Moderate; MCH 31.9 pg (25.0-35.0); MCHC 31.6 g/dL (31.0-37.0); MCV 100.9 fL (80.0-100.0); Macrocytosis Moderate; Mean Platelet Volume 8.9; Platelet Count 253 k/uL (150-450); Poikilocytosis Slight; RBC 2.92 m/uL (4.30-5.90); RDW 20.9 % (11.5-15.5); WBC 11.4 k/uL (3.8-10.6)
[2021-07-09] MEDS: IPRATROPIUM-ALBUTEROL 3 ML NEB INHALATION SCH ×4 (08:37→21:02)
[2021-07-09] MEDS: METOPROLOL TARTRATE 12.5 MG TAB PO SCH ×2 (08:55→20:21)
[2021-07-09] MEDS: DILTIAZEM CD 120 MG CAP.ER.24H PO SCH (08:55)
[2021-07-09] MEDS: SERTRALINE 100 MG TAB PO SCH (08:55)
[2021-07-09] MEDS: NYSTATIN 100,000 UNIT/ML SUSP 500,000 UNIT/5 ML CUP PO SCH ×4 (08:55→20:21)
[2021-07-09] MEDS: PANTOPRAZOLE 40 MG/10 ML VIAL IVP SCH ×3 (08:56→20:21)
--- NOTE | 2021-07-09 08:58 | P.PN ---
Subjective Progress Note Date: 07/08/21 61 year old male with history of hypertension, atrial fibrillation, atrial flutter, alcohol abuse, COPD who has been seen multiple times in the ER for alcohol intoxication and suicidal ideation in the past was brought in by EMS as his roommate found him unresponsive. Patient drinks daily half a gallon. Patient evaluated in the ER. He would wake up intermittently say a few words and go back to sleep. Patient appears trunk, sees he wants to and appears that he is seeing things in the room as he is pointing at lopes. Patient is unable to maintain eye contact as he drifts into sleep. She received breathing treatment on his way to the hospital and also endorses before he came to the hospital. He received another nebulizing treatment before I evaluated him. Patient continues to wheeze significantly on evaluation. He denies any cough or shortness of breath or chest pain. Patient was afebrile tachycardic at 106, respiratory rate of 15 blood pressure 107/78 oxygen saturation 89% on room air improved to 97% on 2 L. EKG was obtained showed A. fib with rapid response of response at 120 CT of the brain was negative for any acute abnormality does have acute mastoiditis. Chest x-ray suggestive of mild congestive heart failure. Labs are reviewed patient has a WBC of 4.2 hemoglobin 12.7 sodium 118 chloride 82 bicarb 22 BUN 37 creatinine is 0.03. Ammonia level is a 25 alcohol level 218Patient is alcohol intoxication with suicidal ideation. Sitter at bedside ordered. We will discontinue IV fluids as patient appears volume overloaded. Solu-Medrol was initiated at 60 IV every 6 with DuoNeb's with pulmonary consult. Sodium levels with the acetaminophen urine osmolality were ordered. Nephrology consulted for management of sodium. 06/27 patient evaluated bedside is alert and answer questions appropriately. Sitter at bedside. Patient is currently 84% on 3 L of oxygen. Repeat chest x- ray suggestive of right lower lid and a troponin airspace opacity along with le ft lower airspace opacity with developing infectious process with COPD changes 06/28 patient evaluated at bedside lying comfortably in bed. Patient denies any chest pain or shortness of breath. Vitals are stable patient continues from and hyponatremia with a repeat sodium 122 potassium 5.5 chloride 88 BUN 72 creatinine 1.56. Serum osmolarity continues to remain high 305 continue Lasix 40 IV twice a day. Solu-Medrol reduced to every 8 8 hours 60 mg. Nephrology recommendation appreciated 06/29: Repeat chest x-ray reveals cardiomegaly with right greater than left bilateral lower lung acute infiltrates and/or atelectasis with right-sided volume loss remain present. No significant change from yesterday. Patient is followed closely by nephrology with plan to continue IV Lasix encourage oral protein intake and repeat labs tomorrow. Patient has seen by psychiatry with expectation of some cognitive clearing so they can expand the psychiatric assessment. Patient is still quite confused unable to answer questions and follow commands. He has been afebrile, heart rate 88, blood pressure 106/59, pulse ox 97% on 4 L nasal cannula. Sodium 128, potassium 4.0, chloride 85, CO2 38, BUN 63 creatinine 1.32. Blood sugars are running between 100 4891. TSH 1.250. Urinalysis negative for infection. Sodium 38. 06/30: The patient is awake this morning. He knows where he is at. He states he normally drinks a fifth of liquor per day. He is able to verbalize that he would like to have it inhaler when he leaves the hospital. Patient is followed by pulmonary medicine Repeat chest x-ray reveals improved aeration at the left base. Continued extensive consolidation or atelectasis of the right lower lobe. Patient has been afebrile, heart rate 79, blood pressure 126/76, pulse ox 92% on 3 L. nurse liaison is atrial fibrillation with controlled rate. Repeat blood work reveals hemoglobin 9.7, platelet count 129. Sodium 132, potassium 3.1, chloride 89, CO2 39, BUN 60 and creatinine 1.03. Blood sugars are running between 172 and 222. Patient is having good urine output. 07/01: Patient's mental status is improving. He is able to answer questions appropriately. Patient has been afebrile, heart rate in the 80s to 100s, blood pressure 118/60, pulse ox 90% on 3 L nasal cannula. Capillary blood glucose running between 160 and 358. Levemir 10 units at bedtime added. Zaragoza catheter remains in place. Clinical Administrator recommended continuing IV Lasix encourage oral protein intake.. 07/02: Patient is verbalizing that he still not feeling well enough to go home today. He is awake alert and oriented 3. His mental status is significantly improved. His plan is to return to his current living situation and social work has been working with him on this. Patient apparently has an oxygen concentrator but does not use it. We will be making arrangements for home oxygen therapy. He is pulse oxing 97% on 3 L. Heart rate is running in the 100 and teens to 121. Blood pressure 114/51. He has been afebrile. Low-dose Lopressor will be added to Cardizem for rate control for atrial fibrillation. Patient has had no signs of bleeding, eliquis will be started. 07/03: Patient is having drop in blood pressure with lightheadedness. This morning blood pressure 1 was 78/42. We've ordered a fluid bolus of 250 ML's due to history of heart failure, hold Cardizem, Lasix, metoprolol. Noted the patient had been taken off Solu-Medrol on 07/01 by pulmonary medicine. Cortisone level be checked and patient will be started on Solu-Cortef 100 mg IV every 8 hours. Repeat blood work reveals sodium 132, potassium 4.1, chloride 87, CO2 38, BUN 100 and creatinine 1.13. Blood sugars are running between 117 and 155. No new plan from pulmonary medicine. Patient has been seen by psychiatry with recommendations to monitor for alcohol withdrawal with Ativan when necessary on [facility] protocol. Zoloft 50 mg daily was added and melatonin 5 mg at bedtime. 07/06: Over the weekend, patient developed GI bleed, eliquis was placed on hold and patient underwent EGD with Dr. Kaiser finding acute gastric ulcerations and bleeding, acute duodenal ulcerations with bleeding, acute severe erosive esophagitis from candidiasis, gastroesophageal reflux disease. Biopsies are pending. Patient was also seen by cardiology for A. fib with episode of RVR. Solu Cortef will be discontinued. Hemoglobin came back today at 6.5 and patient will be transfused 1 unit of packed RBCs. Echocardiogram reveals EF of 50-55%, mild mitral regurgitation, moderate to severe tricuspid regurgitation, severe pulmonary hypertension with RVSP 76.53 mmHg. Chest x-ray reveals suspected new small left effusion with slight worsening in patchy left basilar atelectasis and/or consolidation. Continued extensive right lower lobe consolidation. Follow-up to ensure clearance of this finding to exclude possibility of lobar collapse secondary to central obstructing lesion. Possible small right effusion. Patient is also followed by pulmonary medicine and nephrology. 2: Patient had increased confusion last evening dose of Ativan was given. He also had decreased blood pressure and a run of V. tach 14 beats that was self- limited. Patient is not eating very much because he is on a clear liquid diet and does not like it. He is requesting Ativan which is not required on the CIWA protocol at this point. Librium will be started,CIWA protocol will be discontinued. We'll increase Zoloft to 100 mg daily and add Remeron 15 mg at bedtime. Repeat blood work reveals WBC 10.1, hemoglobin 8.2. Sodium 131, potassium 3.8, chloride 92, CO2 37, BUN 73 creatinine 1.2. Blood sugars are running between 76 and 166. General surgery is planning to advance diet to full liquids. Cardiology has signed off this case. 07/08: Patient is seen today on the [facility] unit. He had a small dark BM last pm, no bright red blood. He has been afebrile, HR 60, BP 105/63, PO 100% 3L n/c. He is currently advanced to regular diet and remains on fluid restriction of 1500 ml. He is followed by GI and general surgery and continued on Carafate and Protonix. Sodium 133, K 3.3 and was replaced, Chloride 89, CO2 39, BUN62 and Creat 1.38, BS 87. CBG 86-155. Lasix is on hold and he is on midodrine in enhance BP per nephrology. Cardiology has signed off his case. ROS Constitutional: Denies chills, Denies fever, reports dizziness, reports lightheadedness, endorses lethargy Denies poor appetite, endorses weakness, Denies weight loss Eyes: denies decreased vision, denies diplopia, denies discharge Ears: deny: decreased hearing Ears, nose, mouth and throat: Denies dental pain, Denies headache, Denies nasal discharge, Denies nose pain Cardiovascular: Denies chest pain, Denies decreased exercise tolerance, Denies edema, Denies high blood pressure, Denies irregular heart beat, Denies palpitations, Denies paroxysmal nocturnal dyspnea, Denies rapid heart beat, Denies shortness of breath Respiratory: Endorses dyspnea, Denies home oxygen, Denies wheezing Gastrointestinal: Denies abdominal pain, Denies change in bowel habits, Denies c offee ground emesis, Denies early satiety, Denies excessive gas, Denies heartburn, Denies hematemesis, Denies hematochezia, Denies loss of appetite, Denies nausea, Denies vomiting Genitourinary: Denies dysuria, Denies flank pain, Denies kidney stones, Denies menorrhagia, Denies urgency, Denies urinary frequency Musculoskeletal: Denies gait dysfunction, Denies limitation of motion, Denies morning stiffness, Denies muscle cramps Integumentary: Denies rash, Denies wounds, Denies brittle nails, Denies change in hair/nails, Denies darkening of skin Neurological: Denies balance difficulties, Denies change in speech, Denies double vision, noted mental status change, noted gait dysfunction, Denies loss of vision, Denies motor disturbance, Denies numbness, Denies paralysis, Denies paresthesias, Denies seizures Psychiatric: Reports anxiety, reports depression Endocrine: Denies excessive sweating, Denies excessive thirst, Denies high blood sugars, Denies palpitations Hematologic/Lymphatic: Denies easy bruising, Denies lymphadenopathy Physical exam - Constitutional General appearance: Awake, 61-year-old male, no acute distress noted - EENT Eyes: anicteric sclerae, PERRLA, normal appearance conjunctival injection ENT: hearing grossly normal - Neck Neck: no lymphadenopathy, normal ROM, no other, no rigidity, no stridor, no thyromegaly - Respiratory Respiratory: Decreased air entry with bibasilar Crackles improved wheezing - Cardiovascular Rhythm: Irregularly irregular tachycardic Heart sounds: normal: S1, S2 Abnormal Heart Sounds: no systolic murmur, no diastolic murmur, no rub, no S3 Gallop, no S4 Gallop, no click, no other - Gastrointestinal General gastrointestinal: normal bowel sounds, soft nontender but distended - Integumentary Integumentary: T, peripheral pulses 2+ with less than 2 second capillary refill, purplish discoloration of toes - Neurologic patient is cooperative, does move all extremities - Musculoskeletal Musculoskeletal: Gait could not be assessed strength equal bilaterally - Psychiatric PsychiatriC Alert oriented 3 Assessment and plan #1 acute metabolic encephalopathy secondary to alcohol intoxication and hyponatremia and elevated ammonia levels. Fall precautions. #2 acute alcohol intoxication with alcohol dependence with history of alcohol withdrawal including DTs alcohol withdrawal protocol initiated. Vitamin supplemented. CIWA protocol discontinued, patient started on Librium. #3 acute suicidal thoughts. Psychiatry consult appreciated and patient started on Zoloft will be increased and Remeron added and melatonin. #4 thrombocytopenia secondary to alcohol abuse and liver dysfunction continue to monitor hold anticoagulants #5 hyperosmolar hyponatremia secondary to alcohol nephrology consult appreciated. Continue po Lasix 40 mg every 12 hours. #6 acute hypoxic respiratory failure with evidence of aspiration pneumonia, acute diastolic heart failure. Continue I&O monitoring daily weights. Continue DuoNeb treatments #7 acute COPD exacerbation. Continue DuoNeb's as needed for shortness of breath. Sputum culture ordered. Pulmonary consult appreciated #8 microscopic bleed per rectum positive fecal occult hemoglobin stable continue monitor CBC may be related to gastritis secondary to alcohol abuse, Protonix 40 twice daily #9 polysubstance abuse urine drug screen positive for meth and THC. Continue to monitor vitals. EKG negative for any ST or T-wave changes #10 acute kidney injury secondary to AtN. #11 acute A. fib with RVR, chronic persistent. Continue Cardizem CD 120 mg daily. Lopressor 12.5 mg twice daily. #10 acute GI bleed secondary to gastric ulcerations, duodenal ulceration status post blood transfusion, status post EGD. Continue Carafate 1 g 3 times daily, Protonix 40 mg IV push twice daily. Diet advanced. #11 Recurrent depression and generalized anxiety disorder. Increase zoloft to 100 mg daily and add remeron 15 mg at hs. 12. Run of nonsustained vtach. Continue to monitor. code status full code DVT. DISCHARG PLAN Home this week Impression and plan of care have been directed as dictated by the signing physician. Leticia Sweet nurse practitioner acting as scribe for signing physician. Objective - Vital Signs Vital signs: Vital Signs Temp 98.0 F 07/08/21 07:58 Pulse 60 07/08/21 07:58 Resp 16 07/08/21 07:58 BP 105/63 07/08/21 07:58 Pulse Ox 100 07/08/21 07:58 Intake & Output 07/07/21 07/08/21 07/08/21 18:59 06:59 18:59 Intake Total 100 Output Total 800 Balance -800 100 Intake: IV 100 Sodium Ferric Gluconat- 100 Sucrose 125 mg In Sodium Chloride 0.9% 100 ml @ 100 mls/hr IVPB DAILY [facility] Rx#:[id number] Output: Urine 800 Other: Voiding Method Indwelling Catheter Bedside Commode Urinal # Voids 2 - Labs CBC & Chem 7: 07/09/21 07:03 07/09/21 07:03 Labs: Abnormal Lab Results - Last 24 Hours (Table) 07/07/21 07/07/21 07/08/21 Range/Units 16:56 20:37 06:28 Sodium 133 L (137-145) mmol/L Potassium 3.3 L (3.5-5.1) mmol/L Chloride 89 L (98-107) mmol/L Carbon Dioxide 39 H (22-30) mmol/L BUN 62 H (9-20) mg/dL Creatinine 1.38 H (0.66-1.25) mg/dL POC Glucose (mg/dL) 155 H 108 H (75-99) mg/dL Calcium 8.3 L (8.4-10.2) mg/dL
[2021-07-09] MEDS: NICOTINE 21MG/24HR PATCH TRANSDERM SCH (09:00)
--- NOTE | 2021-07-09 09:05 | P.PN ---
Subjective Patient is seen in follow-up for hyponatremia and acute kidney injury. Sodium level stable. Renal function also stable. Good urine output. Denies any active bleeding today. No bowel movement yesterday or today. On 2 L is a cannula. Hemoglobin 9.3 today. Vital signs stable. Gen: The patient appeared well nourished and normally developed. HEENT: Head exam is unremarkable. LUNGS: Breath sounds decreased. HEART: Rate and Rhythm are regular. ABDOMEN: Soft, no distention. EXTREMITITES: Trace edema. Objective - Vital Signs Vital signs: Vital Signs Temp 97.9 F 07/09/21 08:54 Pulse 61 07/09/21 08:54 Resp 20 07/09/21 03:40 BP 117/67 07/09/21 08:54 Pulse Ox 98 07/09/21 08:54 Intake & Output 07/08/21 07/09/21 07/09/21 18:59 06:59 18:59 Intake Total 280 120 Output Total 1575 425 Balance -1295 -305 Intake: IV 100 Sodium Ferric Gluconat- 100 Sucrose 125 mg In Sodium Chloride 0.9% 100 ml @ 100 mls/hr IVPB DAILY [facility] Rx#:[id number] Oral 180 120 Output: Urine 1575 425 Uretheral (Zaragoza) 525 Other: Voiding Method Bedside Commode Urinal - Labs CBC & Chem 7: 07/09/21 07:03 07/09/21 07:03 Labs: Abnormal Lab Results - Last 24 Hours (Table) 07/08/21 07/08/21 07/09/21 Range/Units 06:28 20:05 06:16 WBC (3.8-10.6) k/uL RBC 2.70 L (4.30-5.90) m/uL Hgb 8.2 L (13.0-17.5) gm/dL Hct 27.4 L (39.0-53.0) % MCV 101.6 H D (80.0-100.0) fL MCHC 30.1 L (31.0-37.0) g/dL RDW 20.3 H (11.5-15.5) % Metamyelocytes # (Man) 0.09 H (0) k/uL Nucleated RBCs 7 H (0-0) /100 WBC Sodium (137-145) mmol/L Chloride (98-107) mmol/L Carbon Dioxide (22-30) mmol/L BUN (9-20) mg/dL POC Glucose (mg/dL) 101 H 61 L (75-99) mg/dL 07/09/21 07/09/21 07/09/21 Range/Units 06:31 06:36 06:49 WBC (3.8-10.6) k/uL RBC (4.30-5.90) m/uL Hgb (13.0-17.5) gm/dL Hct (39.0-53.0) % MCV (80.0-100.0) fL MCHC (31.0-37.0) g/dL RDW (11.5-15.5) % Metamyelocytes # (Man) (0) k/uL Nucleated RBCs (0-0) /100 WBC Sodium (137-145) mmol/L Chloride (98-107) mmol/L Carbon Dioxide (22-30) mmol/L BUN (9-20) mg/dL POC Glucose (mg/dL) 61 L 50 L 56 L (75-99) mg/dL 07/09/21 07/09/21 Range/Units 07:03 07:03 WBC 11.4 H (3.8-10.6) k/uL RBC 2.92 L (4.30-5.90) m/uL Hgb 9.3 L (13.0-17.5) gm/dL Hct 29.4 L (39.0-53.0) % MCV 100.9 H (80.0-100.0) fL MCHC (31.0-37.0) g/dL RDW 20.9 H (11.5-15.5) % Metamyelocytes # (Man) (0) k/uL Nucleated RBCs (0-0) /100 WBC Sodium 134 L (137-145) mmol/L Chloride 95 L (98-107) mmol/L Carbon Dioxide 33 H (22-30) mmol/L BUN 52 H (9-20) mg/dL POC Glucose (mg/dL) (75-99) mg/dL Assessment and Plan Plan: Assessment: 1. Hypervolemic hyponatremia improved with diuresis. Improved. Also component of poor solute intake. Sodium level 134. 2. Volume overload. Improved with diuresis. 3. Alcohol abuse. 4. Acute kidney injury secondary to hemodynamic ATN and acute blood loss anemia. Creatinine 1.25 today. Elevated BUN secondary to GI bleed as well as steroids. Improving. Baseline creatinine near 1. 5. Metabolic alkalosis from diuresis. Stable. Diuretics held. 6. Acute GI bleed receiving blood transfusions. He did receive IV DDAVP Januar y 29. Eliquis stopped. Surgery following. EGD showed bleeding duodenal and gastric ulcerations. 7. Hypotension due to severe anemia. Cortisol level not low. Better. 8. Hypokalemia from diuresis and poor intake. Replace. Better. Plan: Continue hold Lasix for now. Encouraged oral intake. Maintain fluid restriction. Avoid nephrotoxins. Continue to monitor renal function and urine output. Maintain midodrine - hold for systolic blood pressure above 110 Monitor hemoglobin and transfuse as needed. Diet to be advanced per surgery.
--- NOTE | 2021-07-09 11:19 | P.PN ---
<MoiseHelen bell - Last Filed: 07/09/21 11:16> Subjective Progress Note Date: 07/09/21 CHIEF COMPLAINT: Acute anemia HISTORY OF PRESENT ILLNESS: The patient is a 61 year old male admitted to 06/26/2021 after being found unresponsive. Patient has been hospitalized for the last 9 days. Patient has history of heavy alcohol abuse. Additional workup demonstrated new onset atrial fibrillation. Patient was admitted and placed on blood thinner. Hemoglobin on admission was 12.7. Hemoglobin did drop to 4.0. Patient has received a total of 4 units of blood during his admission. Patient is status post EGD demonstrating Acute gastric ulcerations with bleeding, Acute duodenal ulceration with bleeding, Acute severe erosive esophagitis from candidiasis and Gastroesophageal reflux disease. Patient has completed his iron transfusions. Patient reports some improvement in his epigastric pain. He is requesting food. Denies any nausea or vomiting. No further black stools reported. Afebrile. WBC 11.4 hemoglobin is up from 8.2-9.3. Sodium 134 creatinine 1.25 pathology from EGD demonstrated mild chronic gastritis and Mary esophagitis PHYSICAL EXAM: VITAL SIGNS: Reviewed GENERAL: Well-developed in no acute distress. HEENT: No sclera icterus. Extraocular movements grossly intact. Moist buccal mucosa. Head is atraumatic, normocephalic. Hears conversational speech. No nasal drainage. NECK: Supple without lymphadenopathy. CHEST: Non-labored respirations and equal bilateral excursions. CARDIOVASCULAR: Palpable 2+ radial pulses. ABDOMEN: Soft. Nondistended. Epigastric tenderness with palpation MUSCULOSKELETAL: No clubbing or cyanosis. NEUROLOGIC: No focal or lateralizing signs. Cranial nerves II through XII grossly intact. PSYCH: Appropriate affect. Alert and oriented to person, place and time. SKIN: Well perfused. Good skin turgor. ASSESSMENT: 1. Acute blood loss anemia secondary to bleeding from gastric ulcer and duodenal ulcer. EGD demonstrated acute gastric ulcerations with bleeding, Acute duodenal ulceration with bleeding, Acute severe erosive esophagitis from candidi asis and Gastroesophageal reflux disease. 2. Anticoagulant exposure 3. History of heavy alcohol abuse disorder 4. Hyponatremia PLAN: -Advance diet to full liquids -Continue Protonix and Carafate -Avoid all anticoagulation due to severe acute blood loss anemia and multiple ulcerations in the stomach and duodenal -Continue nystatin swish and swallow -Continue supportive care -Continue to monitor hemoglobin Physician [employer]per note has been reviewed by physician. Signing provider agrees with the documented findings, assessment, and plan of care. Objective - Vital Signs Vital signs: Vital Signs Temp 97.9 F 07/09/21 08:54 Pulse 61 07/09/21 08:54 Resp 20 07/09/21 03:40 BP 117/67 07/09/21 08:54 Pulse Ox 98 07/09/21 08:54 Intake & Output 07/08/21 07/09/21 07/09/21 18:59 06:59 18:59 Intake Total 280 120 Output Total 1575 425 Balance -1295 -305 Intake: IV 100 Sodium Ferric Gluconat- 100 Sucrose 125 mg In Sodium Chloride 0.9% 100 ml @ 100 mls/hr IVPB DAILY [facility] Rx#:[id number] Oral 180 120 Output: Urine 1575 425 Uretheral ([place]) 525 Other: Voiding Method Bedside Commode Urinal - Labs CBC & Chem 7: 07/09/21 07:03 07/09/21 07:03 Labs: Abnormal Lab Results - Last 24 Hours (Table) 07/08/21 07/08/21 07/09/21 Range/Units 06:28 20:05 06:16 WBC (3.8-10.6) k/uL RBC 2.70 L (4.30-5.90) m/uL Hgb 8.2 L (13.0-17.5) gm/dL Hct 27.4 L (39.0-53.0) % MCV 101.6 H D (80.0-100.0) fL MCHC 30.1 L (31.0-37.0) g/dL RDW 20.3 H (11.5-15.5) % Metamyelocytes # (Man) 0.09 H (0) k/uL Nucleated RBCs 7 H (0-0) /100 WBC Sodium (137-145) mmol/L Chloride (98-107) mmol/L Carbon Dioxide (22-30) mmol/L BUN (9-20) mg/dL POC Glucose (mg/dL) 101 H 61 L (75-99) mg/dL 07/09/21 07/09/21 07/09/21 Range/Units 06:31 06:36 06:49 WBC (3.8-10.6) k/uL RBC (4.30-5.90) m/uL Hgb (13.0-17.5) gm/dL Hct (39.0-53.0) % MCV (80.0-100.0) fL MCHC (31.0-37.0) g/dL RDW (11.5-15.5) % Metamyelocytes # (Man) (0) k/uL Nucleated RBCs (0-0) /100 WBC Sodium (137-145) mmol/L Chloride (98-107) mmol/L Carbon Dioxide (22-30) mmol/L BUN (9-20) mg/dL POC Glucose (mg/dL) 61 L 50 L 56 L (75-99) mg/dL 07/09/21 07/09/21 Range/Units 07:03 07:03 WBC 11.4 H (3.8-10.6) k/uL RBC 2.92 L (4.30-5.90) m/uL Hgb 9.3 L (13.0-17.5) gm/dL Hct 29.4 L (39.0-53.0) % MCV 100.9 H (80.0-100.0) fL MCHC (31.0-37.0) g/dL RDW 20.9 H (11.5-15.5) % Metamyelocytes # (Man) (0) k/uL Nucleated RBCs (0-0) /100 WBC Sodium 134 L (137-145) mmol/L Chloride 95 L (98-107) mmol/L Carbon Dioxide 33 H (22-30) mmol/L BUN 52 H (9-20) mg/dL POC Glucose (mg/dL) (75-99) mg/dL <Lauren Reyes N - Last Filed: 07/09/21 16:01> Subjective CHIEF COMPLAINT: Acute anemia HISTORY OF PRESENT ILLNESS: The patient is a 61 year old male who during hospit alization developed acute blood loss anemia after anticoagulation for atrial fibrillation with rapid ventricular response. Patient recent upper endoscopy demonstrating duodenal ulcer with bleeding including punctate gastric ulcerations of the stomach with bleeding. He was nothing by mouth yesterday. Reports abdominal pain is improving. REVIEW OF ORGAN SYSTEMS: Has intermittent shortness of breath. Denies active chest pain. Afebrile. PHYSICAL EXAM: VITALS: Reviewed CONSTITUTIONAL: Well developed and in no acute distress. EYES: Conjuctivae without sclera icterus. Extraocular movements grossly intact. HEAD, EARS, NOSE, THROAT: Moist buccal mucosa. Head is atraumatic, normocephalic . Hears conversational speech. No nasal drainage. RESPIRATORY: Non-labored respirations and equal bilateral excursions. No gross wheezes. CARDIOVASCULAR: Palpable 2+ radial pulses. ABDOMEN: No peritonitis MUSCULOSKELETAL: No clubbing cyanosis. SKIN: Warm and well perfused with good skin turgor. NEUROLOGIC: Cranial nerves II through XII grossly intact. No focal or lateralizing signs. PSYCH: Alert to self. CLINCAL LABS: Reviewed. Hemoglobin trending upward from 8.3-9.3. ASSESSMENT: 1. Acute blood loss anemia status post blood transfusion 2. Anticoagulant exposure 3. History of heavy alcohol abuse disorder 4. Acute gastric and duodenal ulcers with bleeding PLAN: 1. Will advance diet as hemoglobin is stable. 2. Avoid all anticoagulants due to acute gastric or duodenal ulcers Objective - Vital Signs Vital signs: Vital Signs Temp 97.9 F 07/09/21 08:54 Pulse 65 07/09/21 12:00 Resp 16 07/09/21 12:00 BP 90/54 07/09/21 12:00 Pulse Ox 96 07/09/21 12:00 Intake & Output 07/08/21 07/09/21 07/09/21 18:59 06:59 18:59 Intake Total 280 120 120 Output Total 1575 425 Balance -1295 -305 120 Intake: IV 100 Sodium Ferric Gluconat- 100 Sucrose 125 mg In Sodium Chloride 0.9% 100 ml @ 100 mls/hr IVPB DAILY [facility] Rx#:[id number] Oral 180 120 120 Output: Urine 1575 425 Uretheral ([place]) 525 Other: Voiding Method Bedside Commode Indwelling Catheter Urinal - Labs CBC & Chem 7: 07/09/21 14:36 07/09/21 07:03 Labs: Abnormal Lab Results - Last 24 Hours (Table) 07/08/21 07/09/21 07/09/21 Range/Units 20:05 06:16 06:31 WBC (3.8-10.6) k/uL RBC (4.30-5.90) m/uL Hgb (13.0-17.5) gm/dL Hct (39.0-53.0) % MCV (80.0-100.0) fL RDW (11.5-15.5) % Neutrophils # (1.3-7.7) k/uL Lymphocytes # (1.0-4.8) k/uL Sodium (137-145) mmol/L Chloride (98-107) mmol/L Carbon Dioxide (22-30) mmol/L BUN (9-20) mg/dL POC Glucose (mg/dL) 101 H 61 L 61 L (75-99) mg/dL 07/09/21 07/09/21 07/09/21 Range/Units 06:36 06:49 07:03 WBC 11.4 H (3.8-10.6) k/uL RBC 2.92 L (4.30-5.90) m/uL Hgb 9.3 L (13.0-17.5) gm/dL Hct 29.4 L (39.0-53.0) % MCV 100.9 H (80.0-100.0) fL RDW 20.9 H (11.5-15.5) % Neutrophils # (1.3-7.7) k/uL Lymphocytes # (1.0-4.8) k/uL Sodium (137-145) mmol/L Chloride (98-107) mmol/L Carbon Dioxide (22-30) mmol/L BUN (9-20) mg/dL POC Glucose (mg/dL) 50 L 56 L (75-99) mg/dL 07/09/21 07/09/21 07/09/21 Range/Units 07:03 11:36 14:36 WBC (3.8-10.6) k/uL RBC 2.56 L (4.30-5.90) m/uL Hgb 8.3 L (13.0-17.5) gm/dL Hct 26.5 L (39.0-53.0) % MCV 103.3 H (80.0-100.0) fL RDW 21.6 H (11.5-15.5) % Neutrophils # 8.5 H (1.3-7.7) k/uL Lymphocytes # 0.9 L (1.0-4.8) k/uL Sodium 134 L (137-145) mmol/L Chloride 95 L (98-107) mmol/L Carbon Dioxide 33 H (22-30) mmol/L BUN 52 H (9-20) mg/dL POC Glucose (mg/dL) 159 H (75-99) mg/dL Assessment and Plan (1) Acute blood loss anemia (ABLA) Current Visit: Yes Status: Acute Code(s): D62 - ACUTE POSTHEMORRHAGIC ANEMIA SNOMED Code(s): 382719946 (2) Atrial fibrillation Current Visit: Yes Status: Acute Code(s): I48.91 - UNSPECIFIED ATRIAL FIBRILLATION SNOMED Code(s): 18193249 (3) COPD (chronic obstructive pulmonary disease) Current Visit: No Status: Acute Code(s): J44.9 - CHRONIC OBSTRUCTIVE PULMONARY DISEASE, UNSPECIFIED SNOMED Code(s): 15195655 (4) Duodenal ulcer hemorrhagic Current Visit: Yes Status: Acute Code(s): K26.4 - CHRONIC OR UNSPECIFIED DUODENAL ULCER WITH HEMORRHAGE SNOMED Code(s): 17375893 (5) Gastric ulcer with hemorrhage Current Visit: Yes Status: Acute Code(s): K25.4 - CHRONIC OR UNSPECIFIED GASTRIC ULCER WITH HEMORRHAGE SNOMED Code(s): 29891932
[2021-07-09 11:38] LABS: Glucose,Whole Blood 159 mg/dL (75-99)
--- NOTE | 2021-07-09 14:49 | P.PN ---
Subjective Progress Note Date: 07/09/21 61 year old male with history of hypertension, atrial fibrillation, atrial flutter, alcohol abuse, COPD who has been seen multiple times in the ER for alcohol intoxication and suicidal ideation in the past was brought in by EMS as his roommate found him unresponsive. Patient drinks daily half a gallon. Patient evaluated in the ER. He would wake up intermittently say a few words and go back to sleep. Patient appears trunk, sees he wants to and appears that he is seeing things in the room as he is pointing at loeps. Patient is unable to maintain eye contact as he drifts into sleep. She received breathing treatment on his way to the hospital and also endorses before he came to the hospital. He received another nebulizing treatment before I evaluated him. Patient continues to wheeze significantly on evaluation. He denies any cough or shortness of breath or chest pain. Patient was afebrile tachycardic at 106, respiratory rate of 15 blood pressure 107/78 oxygen saturation 89% on room air improved to 97% on 2 L. EKG was obtained showed A. fib with rapid response of response at 120 CT of the brain was negative for any acute abnormality does have acute mastoiditis. Chest x-ray suggestive of mild congestive heart failure. Labs are reviewed patient has a WBC of 4.2 hemoglobin 12.7 sodium 118 chloride 82 bicarb 22 BUN 37 creatinine is 0.03. Ammonia level is a 25 alcohol level 218Patient is alcohol intoxication with suicidal ideation. Sitter at bedside ordered. We will discontinue IV fluids as patient appears volume overloaded. Solu-Medrol was initiated at 60 IV every 6 with DuoNeb's with pulmonary consult. Sodium levels with the acetaminophen urine osmolality were ordered. Nephrology consulted for management of sodium. 06/27 patient evaluated bedside is alert and answer questions appropriately. Sitter at bedside. Patient is currently 84% on 3 L of oxygen. Repeat chest x- ray suggestive of right lower lid and a troponin airspace opacity along with le ft lower airspace opacity with developing infectious process with COPD changes 06/28 patient evaluated at bedside lying comfortably in bed. Patient denies any chest pain or shortness of breath. Vitals are stable patient continues from and hyponatremia with a repeat sodium 122 potassium 5.5 chloride 88 BUN 72 creatinine 1.56. Serum osmolarity continues to remain high 305 continue Lasix 40 IV twice a day. Solu-Medrol reduced to every 8 8 hours 60 mg. Nephrology recommendation appreciated 06/29: Repeat chest x-ray reveals cardiomegaly with right greater than left bilateral lower lung acute infiltrates and/or atelectasis with right-sided volume loss remain present. No significant change from yesterday. Patient is followed closely by nephrology with plan to continue IV Lasix encourage oral protein intake and repeat labs tomorrow. Patient has seen by psychiatry with expectation of some cognitive clearing so they can expand the psychiatric assessment. Patient is still quite confused unable to answer questions and follow commands. He has been afebrile, heart rate 88, blood pressure 106/59, pulse ox 97% on 4 L nasal cannula. Sodium 128, potassium 4.0, chloride 85, CO2 38, BUN 63 creatinine 1.32. Blood sugars are running between 100 4891. TSH 1.250. Urinalysis negative for infection. Sodium 38. 06/30: The patient is awake this morning. He knows where he is at. He states he normally drinks a fifth of liquor per day. He is able to verbalize that he would like to have it inhaler when he leaves the hospital. Patient is followed by pulmonary medicine Repeat chest x-ray reveals improved aeration at the left base. Continued extensive consolidation or atelectasis of the right lower lobe. Patient has been afebrile, heart rate 79, blood pressure 126/76, pulse ox 92% on 3 L. 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 Repeat blood work reveals hemoglobin 9.7, platelet count 129. Sodium 132, potassium 3.1, chloride 89, CO2 39, BUN 60 and creatinine 1.03. Blood sugars are running between 172 and 222. Patient is having good urine output. 07/01: Patient's mental status is improving. He is able to answer questions appropriately. Patient has been afebrile, heart rate in the 80s to 100s, blood pressure 118/60, pulse ox 90% on 3 L nasal cannula. Capillary blood glucose running between 160 and 358. Levemir 10 units at bedtime added. Zaragoza catheter remains in place. Tank Insulator Rubber recommended continuing IV Lasix encourage oral protein intake.. 07/02: Patient is verbalizing that he still not feeling well enough to go home today. He is awake alert and oriented 3. His mental status is significantly improved. His plan is to return to his current living situation and social work has been working with him on this. Patient apparently has an oxygen concentrator but does not use it. We will be making arrangements for home oxygen therapy. He is pulse oxing 97% on 3 L. Heart rate is running in the 100 and teens to 121. Blood pressure 114/51. He has been afebrile. Low-dose Lopressor will be added to Cardizem for rate control for atrial fibrillation. Patient has had no signs of bleeding, eliquis will be started. 07/03: Patient is having drop in blood pressure with lightheadedness. This morning blood pressure 1 was 78/42. We've ordered a fluid bolus of 250 ML's due to history of heart failure, hold Cardizem, Lasix, metoprolol. Noted the patient had been taken off Solu-Medrol on 07/01 by pulmonary medicine. Cortisone level be checked and patient will be started on Solu-Cortef 100 mg IV every 8 hours. Repeat blood work reveals sodium 132, potassium 4.1, chloride 87, CO2 38, BUN 100 and creatinine 1.13. Blood sugars are running between 117 and 155. No new plan from pulmonary medicine. Patient has been seen by psychiatry with recommendations to monitor for alcohol withdrawal with Ativan when necessary on [facility] protocol. Zoloft 50 mg daily was added and melatonin 5 mg at bedtime. 07/06: Over the weekend, patient developed GI bleed, eliquis was placed on hold and patient underwent EGD with Dr. Kaiser finding acute gastric ulcerations and bleeding, acute duodenal ulcerations with bleeding, acute severe erosive esophagitis from candidiasis, gastroesophageal reflux disease. Biopsies are pending. Patient was also seen by cardiology for A. fib with episode of RVR. Solu Cortef will be discontinued. Hemoglobin came back today at 6.5 and patient will be transfused 1 unit of packed RBCs. Echocardiogram reveals EF of 50-55%, mild mitral regurgitation, moderate to severe tricuspid regurgitation, severe pulmonary hypertension with RVSP 76.53 mmHg. Chest x-ray reveals suspected new small left effusion with slight worsening in patchy left basilar atelectasis and/or consolidation. Continued extensive right lower lobe consolidation. Follow-up to ensure clearance of this finding to exclude possibility of lobar collapse secondary to central obstructing lesion. Possible small right effusion. Patient is also followed by pulmonary medicine and nephrology. 2: Patient had increased confusion last evening dose of Ativan was given. He also had decreased blood pressure and a run of V. tach 14 beats that was self- limited. Patient is not eating very much because he is on a clear liquid diet and does not like it. He is requesting Ativan which is not required on the CIWA protocol at this point. Librium will be started,CIWA protocol will be discontinued. We'll increase Zoloft to 100 mg daily and add Remeron 15 mg at bedtime. Repeat blood work reveals WBC 10.1, hemoglobin 8.2. Sodium 131, potassium 3.8, chloride 92, CO2 37, BUN 73 creatinine 1.2. Blood sugars are running between 76 and 166. General surgery is planning to advance diet to full liquids. Cardiology has signed off this case. 07/08: Patient is seen today on the [facility] unit. He had a small dark BM last pm, no bright red blood. He has been afebrile, HR 60, BP 105/63, PO 100% 3L n/c. He is currently advanced to regular diet and remains on fluid restriction of 1500 ml. He is followed by GI and general surgery and continued on Carafate and Protonix. Sodium 133, K 3.3 and was replaced, Chloride 89, CO2 39, BUN62 and Creat 1.38, BS 87. CBG 86-155. Lasix is on hold and he is on midodrine in enhance BP per nephrology. Cardiology has signed off his case. 07/09: Patient is afebrile, heart rate 65, blood pressure 90/54 217/67, pulse ox 96% on 2 L. Sugar this morning was in the 50s status post D50. Levemir will be discontinued. Patient had a dark stool, hemoglobin ordered. Hemoglobin this morning was 9.3. He denies abdominal pain. Patient required Zaragoza catheter placement yesterday for urinary retention. Blood pressure has been on the soft side and Cardizem CD changed to once daily dosing. Discussed discharge plan wi th the patient and he is now agreeable to go to subacute rehab. Social work is been updated. ROS Constitutional: Denies chills, Denies fever, reports dizziness, reports lightheadedness, endorses lethargy Denies poor appetite, endorses weakness, Denies weight loss Eyes: denies decreased vision, denies diplopia, denies discharge Ears: deny: decreased hearing Ears, nose, mouth and throat: Denies dental pain, Denies headache, Denies nasal discharge, Denies nose pain Cardiovascular: Denies chest pain, Denies decreased exercise tolerance, Denies edema, Denies high blood pressure, Denies irregular heart beat, Denies palpitations, Denies paroxysmal nocturnal dyspnea, Denies rapid heart beat, Den ies shortness of breath Respiratory: Denies dyspnea, Denies home oxygen, Denies wheezing Gastrointestinal: Denies abdominal pain, Denies change in bowel habits, Denies coffee ground emesis, Denies early satiety, Denies excessive gas, Denies heartburn, Denies hematemesis, Denies hematochezia, Denies loss of appetite, Denies nausea, Denies vomiting, reports dark stools Genitourinary: Denies dysuria, Denies flank pain, Denies kidney stones, Denies menorrhagia, Denies urgency, Denies urinary frequency Musculoskeletal: Denies gait dysfunction, Denies limitation of motion, Denies morning stiffness, Denies muscle cramps Integumentary: Denies rash, Denies wounds, Denies brittle nails, Denies change in hair/nails, Denies darkening of skin Neurological: Denies balance difficulties, Denies change in speech, Denies double vision, noted mental status change, noted gait dysfunction, Denies loss of vision, Denies motor disturbance, Denies numbness, Denies paralysis, Denies paresthesias, Denies seizures Psychiatric: Reports anxiety, reports depression Endocrine: Denies excessive sweating, Denies excessive thirst, Denies high blood sugars, Denies palpitations Hematologic/Lymphatic: Denies easy bruising, Denies lymphadenopathy Physical exam - Constitutional General appearance: Awake, 61-year-old male, no acute distress noted - EENT Eyes: anicteric sclerae, PERRLA, normal appearance conjunctival injection ENT: hearing grossly normal - Neck Neck: no lymphadenopathy, normal ROM, no other, no rigidity, no stridor, no thyromegaly - Respiratory Respiratory: Decreased air entry with few Crackles improved wheezing - Cardiovascular Rhythm: Irregularly irregular Heart sounds: normal: S1, S2 Abnormal Heart Sounds: no systolic murmur, no diastolic murmur, no rub, no S3 Gallop, no S4 Gallop, no click, no other - Gastrointestinal General gastrointestinal: normal bowel sounds, soft nontender but distended - Integumentary Integumentary: T, peripheral pulses 2+ with less than 2 second capillary refill - Neurologic patient is cooperative, does move all extremities - Musculoskeletal Musculoskeletal: Gait could not be assessed strength equal bilaterally, significant weakness - Psychiatric PsychiatriC Alert oriented 3 Assessment and plan #1 acute metabolic encephalopathy secondary to alcohol intoxication and hyponatremia and elevated ammonia levels. Fall precautions. #2 acute alcohol intoxication with alcohol dependence with history of alcohol withdrawal including DTs alcohol withdrawal protocol initiated. Vitamin supplemented. CIWA protocol discontinued, patient started on Librium Librium changed to scheduled dosing. #3 acute suicidal thoughts. Psychiatry consult appreciated and patient started on Zoloft will be increased and Remeron added and melatonin. #4 thrombocytopenia secondary to alcohol abuse and liver dysfunction continue to monitor hold anticoagulants #5 hyperosmolar hyponatremia secondary to alcohol nephrology consult appreciated. Continue po Lasix 40 mg every 12 hours. #6 acute hypoxic respiratory failure with evidence of aspiration pneumonia, acute diastolic heart failure. Continue I&O monitoring daily weights. Continue DuoNeb treatments #7 acute COPD exacerbation. Continue DuoNeb's as needed for shortness of breath. Sputum culture ordered. Pulmonary consult appreciated #8 microscopic bleed per rectum positive fecal occult hemoglobin stable continue monitor CBC may be related to gastritis secondary to alcohol abuse, Protonix 40 twice daily, repeat CBC this afternoon. #9 polysubstance abuse urine drug screen positive for meth and THC. Continue to monitor vitals. EKG negative for any ST or T-wave changes #10 acute kidney injury secondary to AtN. #11 acute A. fib with RVR, chronic persistent. Continue Cardizem CD 120 mg daily. Lopressor 12.5 mg twice daily. #10 acute GI bleed secondary to gastric ulcerations, duodenal ulceration status post blood transfusion, status post EGD. Continue Carafate 1 g 3 times daily, Protonix 40 mg IV push twice daily. Diet advanced. #11 Recurrent depression and generalized anxiety disorder. Increase zoloft to 100 mg daily and add remeron 15 mg at hs. 12. Run of nonsustained vtach. Continue to monitor. code status full code DVT. DISCHARG PLAN Subacute rehab tomorrow Impression and plan of care have been directed as dictated by the signing physician. Leticia Sweet nurse practitioner acting as scribe for signing physician. Objective - Vital Signs Vital signs: Vital Signs Temp 97.9 F 07/09/21 08:54 Pulse 61 07/09/21 08:54 Resp 20 07/09/21 03:40 BP 117/67 07/09/21 08:54 Pulse Ox 98 07/09/21 08:54 Intake & Output 07/08/21 07/09/21 07/09/21 18:59 06:59 18:59 Intake Total 280 120 Output Total 1575 425 Balance -1295 -305 Intake: IV 100 Sodium Ferric Gluconat- 100 Sucrose 125 mg In Sodium Chloride 0.9% 100 ml @ 100 mls/hr IVPB DAILY [facility] Rx#:[id number] Oral 180 120 Output: Urine 1575 425 Uretheral (Zaragoza) 525 Other: Voiding Method Bedside Commode Urinal - Labs CBC & Chem 7: 07/09/21 07:03 07/09/21 07:03 Labs: Abnormal Lab Results - Last 24 Hours (Table) 07/08/21 07/08/21 07/09/21 Range/Units 06:28 20:05 06:16 WBC (3.8-10.6) k/uL RBC (4.30-5.90) m/uL Hgb (13.0-17.5) gm/dL Hct (39.0-53.0) % MCV (80.0-100.0) fL RDW (11.5-15.5) % Metamyelocytes # (Man) 0.09 H (0) k/uL Nucleated RBCs 7 H (0-0) /100 WBC Sodium (137-145) mmol/L Chloride (98-107) mmol/L Carbon Dioxide (22-30) mmol/L BUN (9-20) mg/dL POC Glucose (mg/dL) 101 H 61 L (75-99) mg/dL 07/09/21 07/09/21 07/09/21 Range/Units 06:31 06:36 06:49 WBC (3.8-10.6) k/uL RBC (4.30-5.90) m/uL Hgb (13.0-17.5) gm/dL Hct (39.0-53.0) % MCV (80.0-100.0) fL RDW (11.5-15.5) % Metamyelocytes # (Man) (0) k/uL Nucleated RBCs (0-0) /100 WBC Sodium (137-145) mmol/L Chloride (98-107) mmol/L Carbon Dioxide (22-30) mmol/L BUN (9-20) mg/dL POC Glucose (mg/dL) 61 L 50 L 56 L (75-99) mg/dL 07/09/21 07/09/21 07/09/21 Range/Units 07:03 07:03 11:36 WBC 11.4 H (3.8-10.6) k/uL RBC 2.92 L (4.30-5.90) m/uL Hgb 9.3 L (13.0-17.5) gm/dL Hct 29.4 L (39.0-53.0) % MCV 100.9 H (80.0-100.0) fL RDW 20.9 H (11.5-15.5) % Metamyelocytes # (Man) (0) k/uL Nucleated RBCs (0-0) /100 WBC Sodium 134 L (137-145) mmol/L Chloride 95 L (98-107) mmol/L Carbon Dioxide 33 H (22-30) mmol/L BUN 52 H (9-20) mg/dL POC Glucose (mg/dL) 159 H (75-99) mg/dL
[2021-07-09 15:03] LABS: Anisocytosis Moderate; Basophils % (A) 0 %; Eosinophils % (A) 0 %; HCT 26.5 % (39.0-53.0); HGB 8.3 gm/dL (13.0-17.5); Hypochromasia Marked; Lymphocytes # (A) 0.9 k/uL (1.0-4.8); Lymphocytes % (A) 9 %; MCH 32.3 pg (25.0-35.0); MCHC 31.2 g/dL (31.0-37.0); MCV 103.3 fL (80.0-100.0); Macrocytosis Moderate; Mean Platelet Volume 8.2; Monocytes # (A) 0.5 k/uL (0-1.0); Monocytes % (A) 5 %; Neutrophils # (A) 8.5 k/uL (1.3-7.7); Neutrophils % (A) 85 %; Platelet Count 265 k/uL (150-450); RBC 2.56 m/uL (4.30-5.90); RDW 21.6 % (11.5-15.5)
--- NOTE | 2021-07-09 15:19 | P.PN ---
Subjective Progress Note Date: 07/09/21 Principal diagnosis: GI bleed Patient seen and examined as a follow-up for GI bleed. He underwent EGD with Dr. Reyes with findings of gastric and fundal ulcer. As of this morning patient had had no bowel movement. Hemoglobin remained stable at 9.3. Yesterday patient was made nothing by mouth by general surgery. He is denying any abdominal pain, nausea, or vomiting. Objective - Vital Signs Vital signs: Vital Signs Temp 97.9 F 07/09/21 08:54 Pulse 65 07/09/21 12:00 Resp 16 07/09/21 12:00 BP 90/54 07/09/21 12:00 Pulse Ox 96 07/09/21 12:00 Intake & Output 07/08/21 07/09/21 07/09/21 18:59 06:59 18:59 Intake Total 280 120 120 Output Total 1575 425 Balance -1295 -305 120 Intake: IV 100 Sodium Ferric Gluconat- 100 Sucrose 125 mg In Sodium Chloride 0.9% 100 ml @ 100 mls/hr IVPB DAILY [facility] Rx#:[id number] Oral 180 120 120 Output: Urine 1575 425 Uretheral (Zaragoza) 525 Other: Voiding Method Bedside Commode Indwelling Catheter Urinal - Exam General appearance: The patient is alert, oriented, appears in no acute distress. HET: Head is normocephalic and atraumatic. Conjunctiva pink. Sclera anicteric. Neck: Supple without lymphadenopathy. Abdomen: Soft, mild tenderness to palpation, nondistended with bowel sounds. No guarding or rigidity. Extremities: Normal skin color and turgor. No pedal edema Skin: No rashes, no jaundice Neurological: No focal deficits. Alert and oriented -3. - Labs CBC & Chem 7: 07/09/21 14:36 07/09/21 07:03 Labs: Abnormal Lab Results - Last 24 Hours (Table) 07/08/21 07/09/21 07/09/21 Range/Units 20:05 06:16 06:31 WBC (3.8-10.6) k/uL RBC (4.30-5.90) m/uL Hgb (13.0-17.5) gm/dL Hct (39.0-53.0) % MCV (80.0-100.0) fL RDW (11.5-15.5) % Neutrophils # (1.3-7.7) k/uL Lymphocytes # (1.0-4.8) k/uL Sodium (137-145) mmol/L Chloride (98-107) mmol/L Carbon Dioxide (22-30) mmol/L BUN (9-20) mg/dL POC Glucose (mg/dL) 101 H 61 L 61 L (75-99) mg/dL 07/09/21 07/09/21 07/09/21 Range/Units 06:36 06:49 07:03 WBC 11.4 H (3.8-10.6) k/uL RBC 2.92 L (4.30-5.90) m/uL Hgb 9.3 L (13.0-17.5) gm/dL Hct 29.4 L (39.0-53.0) % MCV 100.9 H (80.0-100.0) fL RDW 20.9 H (11.5-15.5) % Neutrophils # (1.3-7.7) k/uL Lymphocytes # (1.0-4.8) k/uL Sodium (137-145) mmol/L Chloride (98-107) mmol/L Carbon Dioxide (22-30) mmol/L BUN (9-20) mg/dL POC Glucose (mg/dL) 50 L 56 L (75-99) mg/dL 07/09/21 07/09/21 07/09/21 Range/Units 07:03 11:36 14:36 WBC (3.8-10.6) k/uL RBC 2.56 L (4.30-5.90) m/uL Hgb 8.3 L (13.0-17.5) gm/dL Hct 26.5 L (39.0-53.0) % MCV 103.3 H (80.0-100.0) fL RDW 21.6 H (11.5-15.5) % Neutrophils # 8.5 H (1.3-7.7) k/uL Lymphocytes # 0.9 L (1.0-4.8) k/uL Sodium 134 L (137-145) mmol/L Chloride 95 L (98-107) mmol/L Carbon Dioxide 33 H (22-30) mmol/L BUN 52 H (9-20) mg/dL POC Glucose (mg/dL) 159 H (75-99) mg/dL Assessment and Plan (1) Acute blood loss anemia (ABLA) Narrative/Plan: 61-year-old male who was admitted to the hospital 10 days ago for unresponsiveness and altered mental status changes was later found to be anemic. He gradually had a decline in his hemoglobin which then dropped from 9.7-4.3. Apparently the patient had been having some black stools for 2-3 days as well. Gen. surgery was initially consulted and he underwent an EGD today that did show acute gastric ulcer as well as acute duodenal ulceration that had evidence of bleeding. The patient was started on Carafate and Protonix. He is still complaining of some abdominal discomfort. He has not had any nausea or vomi ting. Hemoglobin this morning was 6.5 he is status post 3 units of PRBC transfusion with one ordered. We will continue to monitor patient if he has any further evidence of GI bleed or drop in hemoglobin we may need to have repeat EGD with treatment. Current Visit: Yes Status: Acute Code(s): D62 - ACUTE POSTHEMORRHAGIC ANEMIA SNOMED Code(s): 802195413 (2) Gastric ulcer Current Visit: Yes Status: Acute Code(s): K25.9 - GASTRIC ULCER, UNSP ACUTE OR CHRONIC, W/O HEMOR OR PERF SNOMED Code(s): 714146271 (3) Duodenal ulcer Current Visit: Yes Status: Acute Code(s): K26.9 - DUODENAL ULCER, UNSP ACUTE OR CHRONIC, W/O HEMOR OR PERF SNOMED Code(s): 50720316 (4) Atrial fibrillation Current Visit: Yes Status: Acute Code(s): I48.91 - UNSPECIFIED ATRIAL FIBRILLATION SNOMED Code(s): 40322442 Plan: 1. Continue symptomatic and supportive care 2. Agree with Carafate 1 g 3 times a day as well as Protonix twice a day 3. Agree patient is not a good candidate for anticoagulation due to bleeding ulcers 4. Daily CBC, transfuse for hemoglobin 6.5 or less according to protocol 5. Patient is status post EGD 6. Advance diet per recommendations from general surgery Thank you for this consultation, we will be on standby if he has any further bleeding. Dr. Claudia Farooq I agree with the dictator's note, documented as a scribe by Mandie Hooks.
[2021-07-09] MEDS: chlordiazePOXIDE 5 MG CAPSULE PO SCH ×2 (16:03→22:32)
[2021-07-09 16:51] LABS: Glucose,Whole Blood 136 mg/dL (75-99)
[2021-07-09 18:45] LABS: Anisocytosis Moderate; Basophils % (A) 0 %; Eosinophils % (A) 0 %; HCT 25.6 % (39.0-53.0); HGB 7.9 gm/dL (13.0-17.5); Hypochromasia Marked; Lymphocytes % (A) 10 %; MCHC 30.9 g/dL (31.0-37.0); MCV 103.4 fL (80.0-100.0); Macrocytosis Moderate; Mean Platelet Volume 9.3; Monocytes # (A) 0.4 k/uL (0-1.0); Monocytes % (A) 4 %; Neutrophils # (A) 8.8 k/uL (1.3-7.7); Neutrophils % (A) 85 %; Platelet Count 253 k/uL (150-450); Poikilocytosis Slight; RBC 2.48 m/uL (4.30-5.90); WBC 10.3 k/uL (3.8-10.6)
[2021-07-09] MEDS: MIRTAZAPINE 15 MG TAB PO SCH (20:21)
[2021-07-09 20:29] LABS: Glucose,Whole Blood 163 mg/dL (75-99)
[2021-07-09] MEDS: HALOPERIDOL LACTATE 5 MG/ML 1 ML VIAL IVP PRN (22:34)
[2021-07-10] MEDS: ACETAMINOPHEN TAB 325 MG TAB PO PRN ×3 (02:12→23:04)
[2021-07-10 06:30] LABS: Glucose,Whole Blood 109 mg/dL (75-99)
[2021-07-10] MEDS: INSULIN ASPART (NovoLOG) 100 UNIT/ML VIAL SQ SCH ×4 (06:34→20:28)
[2021-07-10] MEDS: MIDODRINE 5 MG TAB PO SCH ×3 (06:38→18:13)
[2021-07-10] MEDS: SUCRALFATE 1 GM TAB PO SCH ×3 (06:38→18:13)
[2021-07-10] MEDS: IPRATROPIUM-ALBUTEROL 3 ML NEB INHALATION SCH ×4 (07:43→19:52)
[2021-07-10 08:08] LABS: Anisocytosis Moderate; HCT 26.2 % (39.0-53.0); HGB 8.1 gm/dL (13.0-17.5); Hypochromasia Marked; MCHC 30.8 g/dL (31.0-37.0); Macrocytosis Marked; Mean Platelet Volume 8.1; Platelet Count 238 k/uL (150-450); RBC 2.51 m/uL (4.30-5.90); RDW 21.7 % (11.5-15.5); WBC 6.7 k/uL (3.8-10.6)
[2021-07-10 08:22] LABS: Magnesium 2.1 mg/dL (1.6-2.3); Potassium 3.9 mmol/L (3.5-5.1)
[2021-07-10] MEDS: DILTIAZEM CD 120 MG CAP.ER.24H PO SCH (08:57)
[2021-07-10] MEDS: chlordiazePOXIDE 5 MG CAPSULE PO SCH ×3 (08:57→23:04)
[2021-07-10] MEDS: PANTOPRAZOLE 40 MG/10 ML VIAL IVP SCH ×2 (08:57→20:28)
[2021-07-10] MEDS: NICOTINE 21MG/24HR PATCH TRANSDERM SCH (08:57)
[2021-07-10] MEDS: SERTRALINE 100 MG TAB PO SCH (08:57)
[2021-07-10] MEDS: METOPROLOL TARTRATE 12.5 MG TAB PO SCH ×2 (08:57→20:28)
[2021-07-10] MEDS: NYSTATIN 100,000 UNIT/ML SUSP 500,000 UNIT/5 ML CUP PO SCH ×4 (08:57→20:28)
--- NOTE | 2021-07-10 09:17 | P.PN ---
Subjective Patient is seen in follow-up for hyponatremia and acute kidney injury. Sodium level stable. Renal function also stable. Good urine output. Zaragoza catheter had to be reinserted due to urinary retention. Hemoglobin stable at 8.1. Tolerating oral intake. Vital signs stable. Gen: The patient appeared well nourished and normally developed. HEENT: Head exam is unremarkable. LUNGS: Breath sounds decreased. HEART: Rate and Rhythm are regular. ABDOMEN: Soft, no distention. EXTREMITITES: Trace edema. Objective - Vital Signs Vital signs: Vital Signs Temp 98.2 F 07/10/21 03:21 Pulse 70 07/10/21 07:53 Resp 18 07/10/21 03:21 BP 100/61 07/10/21 06:36 Pulse Ox 99 07/10/21 03:21 Intake & Output 07/09/21 07/10/21 07/10/21 18:59 06:59 18:59 Intake Total 600 240 Output Total 1000 Balance 600 -760 Intake: Oral 600 240 Output: Urine 1000 Other: Voiding Method Indwelling Catheter Indwelling Catheter - Labs CBC & Chem 7: 07/10/21 07:48 07/10/21 07:48 Labs: Abnormal Lab Results - Last 24 Hours (Table) 07/09/21 07/09/21 07/09/21 Range/Units 11:36 14:36 16:50 RBC 2.56 L (4.30-5.90) m/uL Hgb 8.3 L (13.0-17.5) gm/dL Hct 26.5 L (39.0-53.0) % MCV 103.3 H (80.0-100.0) fL MCHC (31.0-37.0) g/dL RDW 21.6 H (11.5-15.5) % Neutrophils # 8.5 H (1.3-7.7) k/uL Lymphocytes # 0.9 L (1.0-4.8) k/uL Macrocytosis Sodium (137-145) mmol/L Chloride (98-107) mmol/L Carbon Dioxide (22-30) mmol/L BUN (9-20) mg/dL Glucose (74-99) mg/dL POC Glucose (mg/dL) 159 H 136 H (75-99) mg/dL Calcium (8.4-10.2) mg/dL 07/09/21 07/09/21 07/10/21 Range/Units 18:30 20:27 06:29 RBC 2.48 L (4.30-5.90) m/uL Hgb 7.9 L (13.0-17.5) gm/dL Hct 25.6 L (39.0-53.0) % MCV 103.4 H (80.0-100.0) fL MCHC 30.9 L (31.0-37.0) g/dL RDW 22.0 H (11.5-15.5) % Neutrophils # 8.8 H (1.3-7.7) k/uL Lymphocytes # (1.0-4.8) k/uL Macrocytosis Sodium (137-145) mmol/L Chloride (98-107) mmol/L Carbon Dioxide (22-30) mmol/L BUN (9-20) mg/dL Glucose (74-99) mg/dL POC Glucose (mg/dL) 163 H 109 H (75-99) mg/dL Calcium (8.4-10.2) mg/dL 07/10/21 07/10/21 Range/Units 07:48 07:48 RBC 2.51 L (4.30-5.90) m/uL Hgb 8.1 L (13.0-17.5) gm/dL Hct 26.2 L (39.0-53.0) % MCV 104.0 H (80.0-100.0) fL MCHC 30.8 L (31.0-37.0) g/dL RDW 21.7 H (11.5-15.5) % Neutrophils # (1.3-7.7) k/uL Lymphocytes # (1.0-4.8) k/uL Macrocytosis Marked A Sodium 134 L (137-145) mmol/L Chloride 94 L (98-107) mmol/L Carbon Dioxide 38 H (22-30) mmol/L BUN 40 H (9-20) mg/dL Glucose 106 H (74-99) mg/dL POC Glucose (mg/dL) (75-99) mg/dL Calcium 8.0 L (8.4-10.2) mg/dL Assessment and Plan Plan: Assessment: 1. Hypervolemic hyponatremia improved with diuresis. Improved. Also component of poor solute intake. Sodium level 134. 2. Volume overload. Improved with diuresis. 3. Alcohol abuse. 4. Acute kidney injury secondary to hemodynamic ATN and acute blood loss anemia. Creatinine 1.24 today. Elevated BUN secondary to GI bleed as well as steroids. Improving. Baseline creatinine near 1. 5. Metabolic alkalosis from diuresis. Stable. Diuretics held. 6. Acute GI bleed receiving blood transfusions. He did receive IV DDAVP July 04. Eliquis stopped. Surgery following. EGD showed bleeding duodenal and gastric ulcerations. Hemoglobin stable. 7. Hypotension due to severe anemia. Cortisol level not low. Stable. On mi dodrine. 8. Hypokalemia from diuresis and poor intake. Replaced. Better. Plan: Continue hold Lasix for now. Encouraged oral intake. Maintain fluid restriction. Avoid nephrotoxins. Continue to monitor renal function and urine output. Maintain midodrine - hold for systolic blood pressure above 110. Monitor hemoglobin and transfuse as needed. Diet to be advanced per surgery.
--- NOTE | 2021-07-10 11:03 | P.PN ---
Subjective Progress Note Date: 07/10/21 Principal diagnosis: GI bleed Patient seen and examined as a follow-up for GI bleed. He underwent EGD with Dr. Reyes with findings of gastric and fundal ulcer. We were asked to reevaluate the patient as he has been having black stool and a drop in his hemoglobin. He dropped from 9.3 yesterday to 8.[address] Reyes from general surgery is asking us to proceed with upper endoscopy to reevaluate ulcers for possible active bleeding and treatment. Objective - Vital Signs Vital signs: Vital Signs Temp 97.7 F 07/10/21 08:00 Pulse 80 07/10/21 08:00 Resp 18 07/10/21 08:00 BP 107/67 07/10/21 08:00 Pulse Ox 100 07/10/21 08:00 Intake & Output 07/09/21 07/10/21 07/10/21 18:59 06:59 18:59 Intake Total 600 240 980 Output Total 1000 Balance 600 -760 980 Intake: Oral 600 240 980 Output: Urine 1000 Other: Voiding Method Indwelling Catheter Indwelling Catheter Indwelling Catheter - Exam General appearance: The patient is alert, oriented, appears in no acute distress. HET: Head is normocephalic and atraumatic. Conjunctiva pink. Sclera anicteric. Neck: Supple without lymphadenopathy. Abdomen: Soft, mild tenderness to palpation, nondistended with bowel sounds. No guarding or rigidity. Extremities: Normal skin color and turgor. No pedal edema Skin: No rashes, no jaundice Neurological: No focal deficits. Alert and oriented -3. - Labs CBC & Chem 7: 07/10/21 07:48 07/10/21 07:48 Labs: Abnormal Lab Results - Last 24 Hours (Table) 07/09/21 07/09/21 07/09/21 Range/Units 11:36 14:36 16:50 RBC 2.56 L (4.30-5.90) m/uL Hgb 8.3 L (13.0-17.5) gm/dL Hct 26.5 L (39.0-53.0) % MCV 103.3 H (80.0-100.0) fL MCHC (31.0-37.0) g/dL RDW 21.6 H (11.5-15.5) % Neutrophils # 8.5 H (1.3-7.7) k/uL Lymphocytes # 0.9 L (1.0-4.8) k/uL Macrocytosis Sodium (137-145) mmol/L Chloride (98-107) mmol/L Carbon Dioxide (22-30) mmol/L BUN (9-20) mg/dL Glucose (74-99) mg/dL POC Glucose (mg/dL) 159 H 136 H (75-99) mg/dL Calcium (8.4-10.2) mg/dL 07/09/21 07/09/21 07/10/21 Range/Units 18:30 20:27 06:29 RBC 2.48 L (4.30-5.90) m/uL Hgb 7.9 L (13.0-17.5) gm/dL Hct 25.6 L (39.0-53.0) % MCV 103.4 H (80.0-100.0) fL MCHC 30.9 L (31.0-37.0) g/dL RDW 22.0 H (11.5-15.5) % Neutrophils # 8.8 H (1.3-7.7) k/uL Lymphocytes # (1.0-4.8) k/uL Macrocytosis Sodium (137-145) mmol/L Chloride (98-107) mmol/L Carbon Dioxide (22-30) mmol/L BUN (9-20) mg/dL Glucose (74-99) mg/dL POC Glucose (mg/dL) 163 H 109 H (75-99) mg/dL Calcium (8.4-10.2) mg/dL 07/10/21 07/10/21 Range/Units 07:48 07:48 RBC 2.51 L (4.30-5.90) m/uL Hgb 8.1 L (13.0-17.5) gm/dL Hct 26.2 L (39.0-53.0) % MCV 104.0 H (80.0-100.0) fL MCHC 30.8 L (31.0-37.0) g/dL RDW 21.7 H (11.5-15.5) % Neutrophils # (1.3-7.7) k/uL Lymphocytes # (1.0-4.8) k/uL Macrocytosis Marked A Sodium 134 L (137-145) mmol/L Chloride 94 L (98-107) mmol/L Carbon Dioxide 38 H (22-30) mmol/L BUN 40 H (9-20) mg/dL Glucose 106 H (74-99) mg/dL POC Glucose (mg/dL) (75-99) mg/dL Calcium 8.0 L (8.4-10.2) mg/dL Assessment and Plan (1) Acute blood loss anemia (ABLA) Narrative/Plan: 61-year-old male who was admitted to the hospital 10 days ago for unresponsiveness and altered mental status changes was later found to be anemic. He gradually had a decline in his hemoglobin which then dropped from 9.7-4.3. Apparently the patient had been having some black stools for 2-3 days as well. Gen. surgery was initially consulted and he underwent an EGD today that did show acute gastric ulcer as well as acute duodenal ulceration that had evidence of bleeding. The patient was started on Carafate and Protonix. He is still compla ining of some abdominal discomfort. He has not had any nausea or vomiting. Hemoglobin this morning was 6.5 he is status post 3 units of PRBC transfusion with one ordered. We will continue to monitor patient if he has any further evidence of GI bleed or drop in hemoglobin we may need to have repeat EGD with treatment. We'll proceed with EGD tomorrow Current Visit: Yes Status: Acute Code(s): D62 - ACUTE POSTHEMORRHAGIC ANEMIA SNOMED Code(s): 353677279 (2) Gastric ulcer Current Visit: Yes Status: Acute Code(s): K25.9 - GASTRIC ULCER, UNSP ACUTE OR CHRONIC, W/O HEMOR OR PERF SNOMED Code(s): 711465462 (3) Duodenal ulcer Current Visit: Yes Status: Acute Code(s): K26.9 - DUODENAL ULCER, UNSP ACUTE OR CHRONIC, W/O HEMOR OR PERF SNOMED Code(s): 99851160 (4) Atrial fibrillation Current Visit: Yes Status: Acute Code(s): I48.91 - UNSPECIFIED ATRIAL FIBRILLATION SNOMED Code(s): 73898676 Plan: 1. Continue symptomatic and supportive care 2. Agree with Carafate 1 g 3 times a day as well as Protonix twice a day 3. Agree patient is not a good candidate for anticoagulation due to bleeding ulcers 4. Daily CBC, transfuse for hemoglobin 6.5 or less according to protocol 5. Patient is status post EGD 6. Nothing by mouth after midnight 7. We'll plan for EGD tomorrow. Procedure discussed with patient including risks and benefits. Patient is willing to proceed. Thank you for allowing us to participate in the care of the patient, the GI service will sign off, gastroenterology will not be available at the hospital this weekend and through next week. If further evaluation by gastroenterology is required the patient will need transfer as per the primary team's discretion. Dr. Claudia Farooq I agree with the dictator's note, documented as a scribe by Mandie Hooks.
[2021-07-10 12:11] LABS: Glucose,Whole Blood 100 mg/dL (75-99)
--- NOTE | 2021-07-10 12:18 | P.PN ---
Subjective Progress Note Date: 07/10/21 CHIEF COMPLAINT: Acute anemia HISTORY OF PRESENT ILLNESS: The patient is a 61 year old male admitted to 06/26/2021 after being found unresponsive. Patient has been hospitalized for the last 9 days. Patient has history of heavy alcohol abuse. Additional workup demonstrated new onset atrial fibrillation. Patient was admitted and placed on blood thinner. Hemoglobin on admission was 12.7. Hemoglobin did drop to 4.0. Patient has received a total of 4 units of blood during his admission. Patient is status post EGD demonstrating Acute gastric ulcerations with bleeding, Acute duodenal ulceration with bleeding, Acute severe erosive esophagitis from candidiasis and Gastroesophageal reflux disease. Patient has completed his iron transfusions. Patient continues had the same epigastric abdominal pain. He is still having black stools. Hemoglobin was up to 9.3 yesterday and has trended downwards to 7.9 and slightly up at 8.1. Patient himself is cut back on the amount of liquid diet he is intake. Afebrile WBC 6.7 hemoglobin 8.1 sodium 134 PHYSICAL EXAM: VITAL SIGNS: Reviewed GENERAL: Well-developed in no acute distress. HEENT: No sclera icterus. Extraocular movements grossly intact. Moist buccal mucosa. Head is atraumatic, normocephalic. Hears conversational speech. No nasal drain age. NECK: Supple without lymphadenopathy. CHEST: Non-labored respirations and equal bilateral excursions. CARDIOVASCULAR: Palpable 2+ radial pulses. ABDOMEN: Soft. Nondistended. Epigastric tenderness with palpation MUSCULOSKELETAL: No clubbing or cyanosis. NEUROLOGIC: No focal or lateralizing signs. Cranial nerves II through XII grossly intact. PSYCH: Appropriate affect. Alert and oriented to person, place and time. SKIN: Well perfused. Good skin turgor. ASSESSMENT: 1. Acute blood loss anemia secondary to bleeding from gastric ulcer and duodenal ulcer. EGD demonstrated acute gastric ulcerations with bleeding, Acute duodenal ulceration with bleeding, Acute severe erosive esophagitis from candidiasis and Gastroesophageal reflux disease. 2. Anticoagulant exposure 3. History of heavy alcohol abuse disorder 4. Hyponatremia PLAN: -Recommend GI service to repeat upper endoscopy with clipping. 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 Signing provider agrees with the documented findings, assessment, and plan of care. Objective - Vital Signs Vital signs: Vital Signs Temp 97.7 F 07/10/21 08:00 Pulse 65 07/10/21 11:51 Resp 18 07/10/21 08:00 BP 107/67 07/10/21 08:00 Pulse Ox 100 07/10/21 08:00 Intake & Output 07/09/21 07/10/21 07/10/21 18:59 06:59 18:59 Intake Total 600 240 980 Output Total 1000 Balance 600 -760 980 Intake: Oral 600 240 980 Output: Urine 1000 Other: Voiding Method Indwelling Catheter Indwelling Catheter Indwelling Catheter - Labs CBC & Chem 7: 07/10/21 07:48 07/10/21 07:48 Labs: Abnormal Lab Results - Last 24 Hours (Table) 07/09/21 07/09/21 07/09/21 Range/Units 14:36 16:50 18:30 RBC 2.56 L 2.48 L (4.30-5.90) m/uL Hgb 8.3 L 7.9 L (13.0-17.5) gm/dL Hct 26.5 L 25.6 L (39.0-53.0) % MCV 103.3 H 103.4 H (80.0-100.0) fL MCHC 30.9 L (31.0-37.0) g/dL RDW 21.6 H 22.0 H (11.5-15.5) % Neutrophils # 8.5 H 8.8 H (1.3-7.7) k/uL Lymphocytes # 0.9 L (1.0-4.8) k/uL Macrocytosis Sodium (137-145) mmol/L Chloride (98-107) mmol/L Carbon Dioxide (22-30) mmol/L BUN (9-20) mg/dL Glucose (74-99) mg/dL POC Glucose (mg/dL) 136 H (75-99) mg/dL Calcium (8.4-10.2) mg/dL 07/09/21 07/10/21 07/10/21 Range/Units 20:27 06:29 07:48 RBC (4.30-5.90) m/uL Hgb (13.0-17.5) gm/dL Hct (39.0-53.0) % MCV (80.0-100.0) fL MCHC (31.0-37.0) g/dL RDW (11.5-15.5) % Neutrophils # (1.3-7.7) k/uL Lymphocytes # (1.0-4.8) k/uL Macrocytosis Sodium 134 L (137-145) mmol/L Chloride 94 L (98-107) mmol/L Carbon Dioxide 38 H (22-30) mmol/L BUN 40 H (9-20) mg/dL Glucose 106 H (74-99) mg/dL POC Glucose (mg/dL) 163 H 109 H (75-99) mg/dL Calcium 8.0 L (8.4-10.2) mg/dL 07/10/21 07/10/21 Range/Units 07:48 11:57 RBC 2.51 L (4.30-5.90) m/uL Hgb 8.1 L (13.0-17.5) gm/dL Hct 26.2 L (39.0-53.0) % MCV 104.0 H (80.0-100.0) fL MCHC 30.8 L (31.0-37.0) g/dL RDW 21.7 H (11.5-15.5) % Neutrophils # (1.3-7.7) k/uL Lymphocytes # (1.0-4.8) k/uL Macrocytosis Marked A Sodium (137-145) mmol/L Chloride (98-107) mmol/L Carbon Dioxide (22-30) mmol/L BUN (9-20) mg/dL Glucose (74-99) mg/dL POC Glucose (mg/dL) 100 H (75-99) mg/dL Calcium (8.4-10.2) mg/dL
--- NOTE | 2021-07-10 13:20 | P.PN ---
Subjective Progress Note Date: 07/10/21 61 year old male with history of hypertension, atrial fibrillation, atrial flutter, alcohol abuse, COPD who has been seen multiple times in the ER for alcohol intoxication and suicidal ideation in the past was brought in by EMS as his roommate found him unresponsive. Patient drinks daily half a gallon. Patient evaluated in the ER. He would wake up intermittently say a few words and go back to sleep. Patient appears trunk, sees he wants to and appears that he is seeing things in the room as he is pointing at lopes. Patient is unable to maintain eye contact as he drifts into sleep. She received breathing treatment on his way to the hospital and also endorses before he came to the hospital. He received another nebulizing treatment before I evaluated him. Patient continues to wheeze significantly on evaluation. He denies any cough or shortness of breath or chest pain. Patient was afebrile tachycardic at 106, respiratory rate of 15 blood pressure 107/78 oxygen saturation 89% on room air improved to 97% on 2 L. EKG was obtained showed A. fib with rapid response of response at 120 CT of the brain was negative for any acute abnormality does have acute mastoiditis. Chest x-ray suggestive of mild congestive heart failure. Labs are reviewed patient has a WBC of 4.2 hemoglobin 12.7 sodium 118 chloride 82 bicarb 22 BUN 37 creatinine is 0.03. Ammonia level is a 25 alcohol level 218Patient is alcohol intoxication with suicidal ideation. Sitter at bedside ordered. We will discontinue IV fluids as patient appears volume overloaded. Solu-Medrol was initiated at 60 IV every 6 with DuoNeb's with pulmonary consult. Sodium levels with the acetaminophen urine osmolality were ordered. Nephrology consulted for management of sodium. 06/27 patient evaluated bedside is alert and answer questions appropriately. Sitter at bedside. Patient is currently 84% on 3 L of oxygen. Repeat chest x- ray suggestive of right lower lid and a troponin airspace opacity along with le ft lower airspace opacity with developing infectious process with COPD changes 06/28 patient evaluated at bedside lying comfortably in bed. Patient denies any chest pain or shortness of breath. Vitals are stable patient continues from and hyponatremia with a repeat sodium 122 potassium 5.5 chloride 88 BUN 72 creatinine 1.56. Serum osmolarity continues to remain high 305 continue Lasix 40 IV twice a day. Solu-Medrol reduced to every 8 8 hours 60 mg. Nephrology recommendation appreciated 06/29: Repeat chest x-ray reveals cardiomegaly with right greater than left bilateral lower lung acute infiltrates and/or atelectasis with right-sided volume loss remain present. No significant change from yesterday. Patient is followed closely by nephrology with plan to continue IV Lasix encourage oral protein intake and repeat labs tomorrow. Patient has seen by psychiatry with expectation of some cognitive clearing so they can expand the psychiatric assessment. Patient is still quite confused unable to answer questions and follow commands. He has been afebrile, heart rate 88, blood pressure 106/59, pulse ox 97% on 4 L nasal cannula. Sodium 128, potassium 4.0, chloride 85, CO2 38, BUN 63 creatinine 1.32. Blood sugars are running between 100 4891. TSH 1.250. Urinalysis negative for infection. Sodium 38. 06/30: The patient is awake this morning. He knows where he is at. He states he normally drinks a fifth of liquor per day. He is able to verbalize that he would like to have it inhaler when he leaves the hospital. Patient is followed by pulmonary medicine Repeat chest x-ray reveals improved aeration at the left base. Continued extensive consolidation or atelectasis of the right lower lobe. Patient has been afebrile, heart rate 79, blood pressure 126/76, pulse ox 92% on 3 L. compliance monitor is atrial fibrillation with controlled rate. Repeat blood work reveals hemoglobin 9.7, platelet count 129. Sodium 132, potassium 3.1, chloride 89, CO2 39, BUN 60 and creatinine 1.03. Blood sugars are running between 172 and 222. Patient is having good urine output. 07/01: Patient's mental status is improving. He is able to answer questions appropriately. Patient has been afebrile, heart rate in the 80s to 100s, blood pressure 118/60, pulse ox 90% on 3 L nasal cannula. Capillary blood glucose running between 160 and 358. Levemir 10 units at bedtime added. Zaragoza catheter remains in place. Analysis Mgr recommended continuing IV Lasix encourage oral protein intake.. 07/02: Patient is verbalizing that he still not feeling well enough to go home today. He is awake alert and oriented 3. His mental status is significantly improved. His plan is to return to his current living situation and social work has been working with him on this. Patient apparently has an oxygen concentrator but does not use it. We will be making arrangements for home oxygen therapy. He is pulse oxing 97% on 3 L. Heart rate is running in the 100 and teens to 121. Blood pressure 114/51. He has been afebrile. Low-dose Lopressor will be added to Cardizem for rate control for atrial fibrillation. Patient has had no signs of bleeding, eliquis will be started. 07/03: Patient is having drop in blood pressure with lightheadedness. This morning blood pressure 1 was 78/42. We've ordered a fluid bolus of 250 ML's due to history of heart failure, hold Cardizem, Lasix, metoprolol. Noted the patient had been taken off Solu-Medrol on 07/01 by pulmonary medicine. Cortisone level be checked and patient will be started on Solu-Cortef 100 mg IV every 8 hours. Repeat blood work reveals sodium 132, potassium 4.1, chloride 87, CO2 38, BUN 100 and creatinine 1.13. Blood sugars are running between 117 and 155. No new plan from pulmonary medicine. Patient has been seen by psychiatry with recommendations to monitor for alcohol withdrawal with Ativan when necessary on [facility] protocol. Zoloft 50 mg daily was added and melatonin 5 mg at bedtime. 07/06: Over the weekend, patient developed GI bleed, eliquis was placed on hold and patient underwent EGD with Dr. Kaiser finding acute gastric ulcerations and bleeding, acute duodenal ulcerations with bleeding, acute severe erosive esophagitis from candidiasis, gastroesophageal reflux disease. Biopsies are pending. Patient was also seen by cardiology for A. fib with episode of RVR. Solu Cortef will be discontinued. Hemoglobin came back today at 6.5 and patient will be transfused 1 unit of packed RBCs. Echocardiogram reveals EF of 50-55%, mild mitral regurgitation, moderate to severe tricuspid regurgitation, severe pulmonary hypertension with RVSP 76.53 mmHg. Chest x-ray reveals suspected new small left effusion with slight worsening in patchy left basilar atelectasis and/or consolidation. Continued extensive right lower lobe consolidation. Follow-up to ensure clearance of this finding to exclude possibility of lobar collapse secondary to central obstructing lesion. Possible small right effusion. Patient is also followed by pulmonary medicine and nephrology. 2: Patient had increased confusion last evening dose of Ativan was given. He also had decreased blood pressure and a run of V. tach 14 beats that was self- limited. Patient is not eating very much because he is on a clear liquid diet and does not like it. He is requesting Ativan which is not required on the CIWA protocol at this point. Librium will be started,CIWA protocol will be discontinued. We'll increase Zoloft to 100 mg daily and add Remeron 15 mg at bedtime. Repeat blood work reveals WBC 10.1, hemoglobin 8.2. Sodium 131, potassium 3.8, chloride 92, CO2 37, BUN 73 creatinine 1.2. Blood sugars are running between 76 and 166. General surgery is planning to advance diet to full liquids. Cardiology has signed off this case. 07/08: Patient is seen today on the [facility]SD unit. He had a small dark BM last pm, no bright red blood. He has been afebrile, HR 60, BP 105/63, PO 100% 3L n/c. He is currently advanced to regular diet and remains on fluid restriction of 1500 ml. He is followed by GI and general surgery and continued on Carafate and Protonix. Sodium 133, K 3.3 and was replaced, Chloride 89, CO2 39, BUN62 and Creat 1.38, BS 87. CBG 86-155. Lasix is on hold and he is on midodrine in enhance BP per nephrology. Cardiology has signed off his case. 07/09: Patient is afebrile, heart rate 65, blood pressure 90/54 217/67, pulse ox 96% on 2 L. Sugar this morning was in the 50s status post D50. Levemir will be discontinued. Patient had a dark stool, hemoglobin ordered. Hemoglobin this morning was 9.3. He denies abdominal pain. Patient required Zaragoza catheter placement yesterday for urinary retention. Blood pressure has been on the soft side and Cardizem CD changed to once daily dosing. Discussed discharge plan wi th the patient and he is now agreeable to go to subacute rehab. Social work is been updated. 07/10: Patient is complaining of abdominal pain and GI will do general surgery has requested that GI perform endoscopy and clipping, continue Protonix and Carafate. Repeat hemoglobin is 8.1. BUN 40 and creatinine 1.2. Patient is Zaragoza catheter for urinary retention, good urine output, Lasix is on hold per nephrology and continued on fluid restriction for hyponatremia. Patient is afebrile, heart rate 80, blood pressure 107/67, pulse ox 100% on 3 L nasal cannula. He monitors atrial fibrillation with controlled rate. Patient is reaching 500 only on incentive spirometry. Discharge planning for subacute rehab which will most likely occur on Tuesday. ROS Constitutional: Denies chills, Denies fever, reports dizziness, reports lightheadedness, endorses lethargy Denies poor appetite, endorses weakness, Denies weight loss Eyes: denies decreased vision, denies diplopia, denies discharge Ears: deny: decreased hearing Ears, nose, mouth and throat: Denies dental pain, Denies headache, Denies nasal discharge, Denies nose pain Cardiovascular: Denies chest pain, Denies decreased exercise tolerance, Denies edema, Denies high blood pressure, Denies irregular heart beat, Denies palpitations, Denies paroxysmal nocturnal dyspnea, Denies rapid heart beat, Denies shortness of breath Respiratory: Denies dyspnea, Denies home oxygen, Denies wheezing Gastrointestinal: Denies abdominal pain, Denies change in bowel habits, Denies coffee ground emesis, Denies early satiety, Denies excessive gas, Denies h eartburn, Denies hematemesis, Denies hematochezia, Denies loss of appetite, Denies nausea, Denies vomiting, reports dark stools Genitourinary: Denies dysuria, Denies flank pain, Denies kidney stones, Denies menorrhagia, Denies urgency, Denies urinary frequency Musculoskeletal: Denies gait dysfunction, Denies limitation of motion, Denies morning stiffness, Denies muscle cramps Integumentary: Denies rash, Denies wounds, Denies brittle nails, Denies change in hair/nails, Denies darkening of skin Neurological: Denies balance difficulties, Denies change in speech, Denies double vision, noted mental status change, noted gait dysfunction, Denies loss of vision, Denies motor disturbance, Denies numbness, Denies paralysis, Denies paresthesias, Denies seizures Psychiatric: Reports anxiety, reports depression Endocrine: Denies excessive sweating, Denies excessive thirst, Denies high blood sugars, Denies palpitations Hematologic/Lymphatic: Denies easy bruising, Denies lymphadenopathy Physical exam - Constitutional General appearance: Awake, 61-year-old male, no acute distress noted - EENT Eyes: anicteric sclerae, PERRLA, normal appearance conjunctival injection ENT: hearing grossly normal - Neck Neck: no lymphadenopathy, normal ROM, no other, no rigidity, no stridor, no thyromegaly - Respiratory Respiratory: Decreased air entry with few Crackles improved wheezing - Cardiovascular Rhythm: Irregularly irregular Heart sounds: normal: S1, S2 Abnormal Heart Sounds: no systolic murmur, no diastolic murmur, no rub, no S3 Gallop, no S4 Gallop, no click, no other - Gastrointestinal General gastrointestinal: normal bowel sounds, soft nontender for some abdominal pain - Integumentary Integumentary: T, peripheral pulses 2+ with less than 2 second capillary refill - Neurologic patient is cooperative, does move all extremities - Musculoskeletal Musculoskeletal: Gait could not be assessed strength equal bilaterally, significant weakness - Psychiatric PsychiatriC Alert oriented 3 Assessment and plan #1 acute metabolic encephalopathy secondary to alcohol intoxication and hyponat remia and elevated ammonia levels. Fall precautions. #2 acute alcohol intoxication with alcohol dependence with history of alcohol withdrawal including DTs alcohol withdrawal protocol initiated. Vitamin supplemented. CIWA protocol discontinued, patient started on Librium Librium changed to scheduled dosing. #3 acute suicidal thoughts. Psychiatry consult appreciated and patient started on Zoloft will be increased and Remeron added and melatonin. #4 thrombocytopenia secondary to alcohol abuse and liver dysfunction continue to monitor hold anticoagulants #5 hyperosmolar hyponatremia secondary to alcohol nephrology consult appreciated. Continue po Lasix 40 mg every 12 hours. #6 acute hypoxic respiratory failure with evidence of aspiration pneumonia, acute diastolic heart failure. Continue I&O monitoring daily weights. Continue DuoNeb treatments #7 acute COPD exacerbation. Continue DuoNeb's as needed for shortness of breath. Sputum culture ordered. Pulmonary consult appreciated #8 microscopic bleed per rectum positive fecal occult hemoglobin stable continue monitor CBC may be related to gastritis secondary to alcohol abuse, Protonix 40 twice daily, repeat CBC this afternoon. #9 polysubstance abuse urine drug screen positive for meth and THC. Continue to monitor vitals. EKG negative for any ST or T-wave changes #10 acute kidney injury secondary to AtN. #11 acute A. fib with RVR, chronic persistent. Continue Cardizem CD 120 mg daily. Lopressor 12.5 mg twice daily. #10 acute GI bleed secondary to gastric ulcerations, duodenal ulceration status post blood transfusion, status post EGD. Continue Carafate 1 g 3 times daily, Protonix 40 mg IV push twice daily. Repeat EGD scheduled for tomorrow #11 Recurrent depression and generalized anxiety disorder. Increase zoloft to 100 mg daily and add remeron 15 mg at hs. 12. Run of nonsustained vtach. Continue to monitor. code status full code DVT. DISCHARG PLAN Subacute rehab on Tuesday at [facility] if patient accepted Impression and plan of care have been directed as dictated by the signing physician. Leticia Sweet nurse practitioner acting as scribe for signing physician. Objective - Vital Signs Vital signs: Vital Signs Temp 97.7 F 07/10/21 08:00 Pulse 80 07/10/21 08:00 Resp 18 07/10/21 08:00 BP 107/67 07/10/21 08:00 Pulse Ox 100 07/10/21 08:00 Intake & Output 07/09/21 07/10/21 07/10/21 18:59 06:59 18:59 Intake Total 600 240 980 Output Total 1000 Balance 600 -760 980 Intake: Oral 600 240 980 Output: Urine 1000 Other: Voiding Method Indwelling Catheter Indwelling Catheter Indwelling Catheter - Labs CBC & Chem 7: 07/10/21 07:48 07/10/21 07:48 Labs: Abnormal Lab Results - Last 24 Hours (Table) 07/09/21 07/09/21 07/09/21 Range/Units 11:36 14:36 16:50 RBC 2.56 L (4.30-5.90) m/uL Hgb 8.3 L (13.0-17.5) gm/dL Hct 26.5 L (39.0-53.0) % MCV 103.3 H (80.0-100.0) fL MCHC (31.0-37.0) g/dL RDW 21.6 H (11.5-15.5) % Neutrophils # 8.5 H (1.3-7.7) k/uL Lymphocytes # 0.9 L (1.0-4.8) k/uL Macrocytosis Sodium (137-145) mmol/L Chloride (98-107) mmol/L Carbon Dioxide (22-30) mmol/L BUN (9-20) mg/dL Glucose (74-99) mg/dL POC Glucose (mg/dL) 159 H 136 H (75-99) mg/dL Calcium (8.4-10.2) mg/dL 07/09/21 07/09/21 07/10/21 Range/Units 18:30 20:27 06:29 RBC 2.48 L (4.30-5.90) m/uL Hgb 7.9 L (13.0-17.5) gm/dL Hct 25.6 L (39.0-53.0) % MCV 103.4 H (80.0-100.0) fL MCHC 30.9 L (31.0-37.0) g/dL RDW 22.0 H (11.5-15.5) % Neutrophils # 8.8 H (1.3-7.7) k/uL Lymphocytes # (1.0-4.8) k/uL Macrocytosis Sodium (137-145) mmol/L Chloride (98-107) mmol/L Carbon Dioxide (22-30) mmol/L BUN (9-20) mg/dL Glucose (74-99) mg/dL POC Glucose (mg/dL) 163 H 109 H (75-99) mg/dL Calcium (8.4-10.2) mg/dL 07/10/21 07/10/21 Range/Units 07:48 07:48 RBC 2.51 L (4.30-5.90) m/uL Hgb 8.1 L (13.0-17.5) gm/dL Hct 26.2 L (39.0-53.0) % MCV 104.0 H (80.0-100.0) fL MCHC 30.8 L (31.0-37.0) g/dL RDW 21.7 H (11.5-15.5) % Neutrophils # (1.3-7.7) k/uL Lymphocytes # (1.0-4.8) k/uL Macrocytosis Marked A Sodium 134 L (137-145) mmol/L Chloride 94 L (98-107) mmol/L Carbon Dioxide 38 H (22-30) mmol/L BUN 40 H (9-20) mg/dL Glucose 106 H (74-99) mg/dL POC Glucose (mg/dL) (75-99) mg/dL Calcium 8.0 L (8.4-10.2) mg/dL
[2021-07-10 16:22] LABS: Glucose,Whole Blood 94 mg/dL (75-99)
[2021-07-10] MEDS: MIRTAZAPINE 15 MG TAB PO SCH (20:28)
[2021-07-10 20:48] LABS: Glucose,Whole Blood 150 mg/dL (75-99)
[2021-07-11] MEDS ORDERED: LIDOCAINE 1% (10MG/ML) FOR IV START INTRADERMA PRN (00:24)
[2021-07-11] MEDS: INSULIN ASPART (NovoLOG) 100 UNIT/ML VIAL SQ SCH ×4 (07:40→20:59)
[2021-07-11 07:41] LABS: Glucose,Whole Blood 116 mg/dL (75-99)
[2021-07-11] MEDS: chlordiazePOXIDE 5 MG CAPSULE PO SCH ×2 (08:09→21:25)
[2021-07-11] MEDS: SUCRALFATE 1 GM TAB PO SCH ×3 (08:09→16:52)
[2021-07-11] MEDS: METOPROLOL TARTRATE 12.5 MG TAB PO SCH ×2 (08:09→21:25)
[2021-07-11] MEDS: NICOTINE 21MG/24HR PATCH TRANSDERM SCH (08:09)
[2021-07-11] MEDS: MIDODRINE 5 MG TAB PO SCH ×3 (08:09→16:52)
[2021-07-11] MEDS: SERTRALINE 100 MG TAB PO SCH (08:09)
[2021-07-11] MEDS: PANTOPRAZOLE 40 MG/10 ML VIAL IVP SCH ×2 (08:10→21:25)
[2021-07-11] MEDS: LACTATED RINGERS 1,000 ML IV SCH (08:22)
[2021-07-11] MEDS: DILTIAZEM CD 120 MG CAP.ER.24H PO SCH (08:27)
[2021-07-11] MEDS: NYSTATIN 100,000 UNIT/ML SUSP 500,000 UNIT/5 ML CUP PO SCH ×4 (08:27→22:40)
[2021-07-11] MEDS: IPRATROPIUM-ALBUTEROL 3 ML NEB INHALATION SCH ×5 (08:31→19:53)
--- NOTE | 2021-07-11 08:39 | P.PN ---
Subjective Patient is seen in follow-up for hyponatremia and acute kidney injury. Sodium level stable. Renal function also stable. Good urine output. Zaragoza catheter had to be reinserted due to urinary retention. Still complaining of black stool. Last bowel movement was yesterday. Vital signs stable. Gen: The patient appeared well nourished and normally developed. HEENT: Head exam is unremarkable. LUNGS: Breath sounds decreased. HEART: Rate and Rhythm are regular. ABDOMEN: Soft, no distention. EXTREMITITES: Trace edema. Objective - Vital Signs Vital signs: Vital Signs Temp 98.2 F 07/11/21 08:07 Pulse 82 07/11/21 08:07 Resp 18 07/11/21 08:07 BP 103/64 07/11/21 08:07 Pulse Ox 100 07/11/21 08:07 Intake & Output 07/10/21 07/11/21 07/11/21 18:59 06:59 18:59 Intake Total 980 400 Output Total 600 Balance 380 400 Intake: Oral 980 400 Output: Urine 600 Other: Voiding Method Indwelling Catheter Indwelling Catheter # Bowel Movements 1 - Labs CBC & Chem 7: 07/10/21 07:48 07/10/21 07:48 Labs: Abnormal Lab Results - Last 24 Hours (Table) 07/10/21 07/10/21 07/11/21 Range/Units 11:57 20:12 07:39 POC Glucose (mg/dL) 100 H 150 H 116 H (75-99) mg/dL Assessment and Plan Plan: Assessment: 1. Hypervolemic hyponatremia improved with diuresis. Improved. Also component of poor solute intake. Sodium level 134 yesterday. 2. Volume overload. Improved with diuresis. 3. Alcohol abuse. 4. Acute kidney injury secondary to hemodynamic ATN and acute blood loss anemia . Creatinine 1.24 yesterday. Elevated BUN secondary to GI bleed as well as steroids. Improving. Baseline creatinine near 1. 5. Metabolic alkalosis from diuresis. Stable. Diuretics held. 6. Acute GI bleed receiving blood transfusions. He did receive IV DDAVP July 04. Eliquis stopped. Surgery following. EGD showed bleeding duodenal and gastric ulcerations. Hemoglobin stable. Scheduled for endoscopy with possible intervention today by GI. 7. Hypotension due to severe anemia. Cortisol level not low. Stable. On midodrine. 8. Hypokalemia from diuresis and poor intake. Replaced. Better. Plan: Continue hold Lasix for now. Encouraged oral intake. Maintain fluid restriction. Avoid nephrotoxins. Continue to monitor renal function and urine output. Maintain midodrine - hold for systolic blood pressure above 110. Monitor hemoglobin and transfuse as needed. EGD with possible intervention today.
[2021-07-11] MEDS ORDERED: PROPOFOL 10 MG/ML 20 ML VIAL IV ONE (09:03)
[2021-07-11] MEDS ORDERED: LACTATED RINGERS 1,000 ML IV ONE ×2 (09:03)
--- NOTE | 2021-07-11 09:14 | P.PCN ---
Date of Procedure: 07/11/21 Procedure(s) Performed: BRIEF HISTORY: Patient is a 61-year-old, pleasant, white male admitted hospital with acute GI bleed. He had an upper endoscopy done by Dr Reyes a week ago and was noted to have duodenal ulcers and gastric ulcers with clot in the duodenum. The patient since then has been on Protonix 40 mg twice daily and was relatively stable. His Cipro for 4 units of is a transition during this hospitalization. Yesterday he started having black stools again and hence he scheduled for repeat upper endoscopy today.. PROCEDURE PERFORMED: Esophagogastroduodenoscopy with biopsy. PREOPERATIVE DIAGNOSIS: Acute upper GI bleed. IV sedation per anesthesia. PROCEDURE: After informed consent was obtained, the patient was brought into the endoscopy unit. IV sedation was administered by Anesthesia under continuous monitoring. Initially the Olympus GIF-140 video endoscope was inserted into the mouth. Esophagus intubated without any difficulty. It was gradually advanced into the stomach and duodenum and carefully examined. The second part of the duodenum appeared normal. In the bulb of the duodenum there was a 1 cm seen based ulcer identified with no clot, active bleeding or visible vessel noted. The scope at this time was withdrawn to the stomach, adequately insufflated with air, and upon careful examination, mucosa of the antrum had scattered erosions with no bleeding. Biopsies were done for H. pylori. The rest of the, body, cardia and the fundus appeared normal. The scope was then withdrawn into the esophagus. The GE junction was located at 39 cm from the incisors. The esophagus appeared normal. There were no erosions or ulcerations seen and the patient tolerated the procedure well. IMPRESSION: 1. 1 cm clean based duodenal bulbar ulcer with no active bleeding. 2. Antral erosive gastritis. RECOMMENDATIONS: The findings of this examination were discussed with the patient. Diet will be advanced as tolerated. Continue Protonix 40 mg daily and avoid NSAIDs. If the hemoglobin is stable he can be discharged home..
[2021-07-11 11:17] LABS: Glucose,Whole Blood 97 mg/dL (75-99)
--- NOTE | 2021-07-11 11:18 | P.PN ---
Subjective Progress Note Date: 07/11/21 Principal diagnosis: Duodenal ulcer Patient doing well today. Underwent EGD this morning by GI. Duodenal ulcer base is stable no additional intervention required. Objective - Vital Signs Vital signs: Vital Signs Temp 98.2 F 07/11/21 08:07 Pulse 82 07/11/21 08:07 Resp 18 07/11/21 08:07 BP 103/64 07/11/21 08:07 Pulse Ox 100 07/11/21 08:07 Intake & Output 07/10/21 07/11/21 07/11/21 18:59 06:59 18:59 Intake Total 980 400 200 Output Total 600 Balance 380 400 200 Intake: IV 200 Oral 980 400 Output: Urine 600 Other: Voiding Method Indwelling Catheter Indwelling Catheter Indwelling Catheter # Bowel Movements 1 - Exam Abdomen: Soft, nontender, nondistended - Labs CBC & Chem 7: 07/10/21 07:48 07/10/21 07:48 Labs: Abnormal Lab Results - Last 24 Hours (Table) 07/10/21 07/10/21 07/11/21 Range/Units 11:57 20:12 07:39 POC Glucose (mg/dL) 100 H 150 H 116 H (75-99) mg/dL Assessment and Plan (1) Duodenal ulcer Narrative/Plan: Patient seems to be doing well. No further duodenal ulcer bleeding. Appreciate GI input. Continue regular diet. Continue antiacids. Stable for discharge from our standpoint. Current Visit: Yes Status: Acute Code(s): K26.9 - DUODENAL ULCER, UNSP ACUTE OR CHRONIC, W/O HEMOR OR PERF SNOMED Code(s): 36526540
[2021-07-11 11:19] LABS: Anisocytosis Moderate; Basophils % (A) 0 %; Eosinophils % (A) 1 %; HCT 27.2 % (39.0-53.0); HGB 8.3 gm/dL (13.0-17.5); Hypochromasia Marked; Lymphocytes # (A) 0.6 k/uL (1.0-4.8); Lymphocytes % (A) 11 %; MCH 32.1 pg (25.0-35.0); MCHC 30.3 g/dL (31.0-37.0); MCV 105.9 fL (80.0-100.0); Macrocytosis Marked; Mean Platelet Volume 8.4; Monocytes # (A) 0.3 k/uL (0-1.0); Monocytes % (A) 6 %; Neutrophils # (A) 4.4 k/uL (1.3-7.7); Neutrophils % (A) 80 %; Platelet Count 231 k/uL (150-450); RBC 2.57 m/uL (4.30-5.90); RDW 20.5 % (11.5-15.5); WBC 5.6 k/uL (3.8-10.6)
--- NOTE | 2021-07-11 15:20 | P.PN ---
Subjective Progress Note Date: 07/11/21 61 year old male with history of hypertension, atrial fibrillation, atrial flutter, alcohol abuse, COPD who has been seen multiple times in the ER for alcohol intoxication and suicidal ideation in the past was brought in by EMS as his roommate found him unresponsive. Patient drinks daily half a gallon. Patient evaluated in the ER. He would wake up intermittently say a few words and go back to sleep. Patient appears trunk, sees he wants to and appears that he is seeing things in the room as he is pointing at lopes. Patient is unable to maintain eye contact as he drifts into sleep. She received breathing treatment on his way to the hospital and also endorses before he came to the hospital. He received another nebulizing treatment before I evaluated him. Patient continues to wheeze significantly on evaluation. He denies any cough or shortness of breath or chest pain. Patient was afebrile tachycardic at 106, respiratory rate of 15 blood pressure 107/78 oxygen saturation 89% on room air improved to 97% on 2 L. EKG was obtained showed A. fib with rapid response of response at 120 CT of the brain was negative for any acute abnormality does have acute mastoiditis. Chest x-ray suggestive of mild congestive heart failure. Labs are reviewed patient has a WBC of 4.2 hemoglobin 12.7 sodium 118 chloride 82 bicarb 22 BUN 37 creatinine is 0.03. Ammonia level is a 25 alcohol level 218Patient is alcohol intoxication with suicidal ideation. Sitter at bedside ordered. We will discontinue IV fluids as patient appears volume overloaded. Solu-Medrol was initiated at 60 IV every 6 with DuoNeb's with pulmonary consult. Sodium levels with the acetaminophen urine osmolality were ordered. Nephrology consulted for management of sodium. 06/27 patient evaluated bedside is alert and answer questions appropriately. Sitter at bedside. Patient is currently 84% on 3 L of oxygen. Repeat chest x- ray suggestive of right lower lid and a troponin airspace opacity along with le ft lower airspace opacity with developing infectious process with COPD changes 06/28 patient evaluated at bedside lying comfortably in bed. Patient denies any chest pain or shortness of breath. Vitals are stable patient continues from and hyponatremia with a repeat sodium 122 potassium 5.5 chloride 88 BUN 72 creatinine 1.56. Serum osmolarity continues to remain high 305 continue Lasix 40 IV twice a day. Solu-Medrol reduced to every 8 8 hours 60 mg. Nephrology recommendation appreciated 06/29: Repeat chest x-ray reveals cardiomegaly with right greater than left bilateral lower lung acute infiltrates and/or atelectasis with right-sided volume loss remain present. No significant change from yesterday. Patient is followed closely by nephrology with plan to continue IV Lasix encourage oral protein intake and repeat labs tomorrow. Patient has seen by psychiatry with expectation of some cognitive clearing so they can expand the psychiatric assessment. Patient is still quite confused unable to answer questions and follow commands. He has been afebrile, heart rate 88, blood pressure 106/59, pulse ox 97% on 4 L nasal cannula. Sodium 128, potassium 4.0, chloride 85, CO2 38, BUN 63 creatinine 1.32. Blood sugars are running between 100 4891. TSH 1.250. Urinalysis negative for infection. Sodium 38. 06/30: The patient is awake this morning. He knows where he is at. He states he normally drinks a fifth of liquor per day. He is able to verbalize that he would like to have it inhaler when he leaves the hospital. Patient is followed by pulmonary medicine Repeat chest x-ray reveals improved aeration at the left base. Continued extensive consolidation or atelectasis of the right lower lobe. Patient has been afebrile, heart rate 79, blood pressure 126/76, pulse ox 92% on 3 L. 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 Repeat blood work reveals hemoglobin 9.7, platelet count 129. Sodium 132, potassium 3.1, chloride 89, CO2 39, BUN 60 and creatinine 1.03. Blood sugars are running between 172 and 222. Patient is having good urine output. 07/01: Patient's mental status is improving. He is able to answer questions appropriately. Patient has been afebrile, heart rate in the 80s to 100s, blood pressure 118/60, pulse ox 90% on 3 L nasal cannula. Capillary blood glucose running between 160 and 358. Levemir 10 units at bedtime added. Zaragoza catheter remains in place. Antique Furniture Restorer recommended continuing IV Lasix encourage oral protein intake.. 07/02: Patient is verbalizing that he still not feeling well enough to go home today. He is awake alert and oriented 3. His mental status is significantly improved. His plan is to return to his current living situation and social work has been working with him on this. Patient apparently has an oxygen concentrator but does not use it. We will be making arrangements for home oxygen therapy. He is pulse oxing 97% on 3 L. Heart rate is running in the 100 and teens to 121. Blood pressure 114/51. He has been afebrile. Low-dose Lopressor will be added to Cardizem for rate control for atrial fibrillation. Patient has had no signs of bleeding, eliquis will be started. 07/03: Patient is having drop in blood pressure with lightheadedness. This morning blood pressure 1 was 78/42. We've ordered a fluid bolus of 250 ML's due to history of heart failure, hold Cardizem, Lasix, metoprolol. Noted the patient had been taken off Solu-Medrol on 07/01 by pulmonary medicine. Cortisone level be checked and patient will be started on Solu-Cortef 100 mg IV every 8 hours. Repeat blood work reveals sodium 132, potassium 4.1, chloride 87, CO2 38, BUN 100 and creatinine 1.13. Blood sugars are running between 117 and 155. No new plan from pulmonary medicine. Patient has been seen by psychiatry with recommendations to monitor for alcohol withdrawal with Ativan when necessary on [facility] protocol. Zoloft 50 mg daily was added and melatonin 5 mg at bedtime. 07/06: Over the weekend, patient developed GI bleed, eliquis was placed on hold and patient underwent EGD with Dr. Kaiser finding acute gastric ulcerations and bleeding, acute duodenal ulcerations with bleeding, acute severe erosive esophagitis from candidiasis, gastroesophageal reflux disease. Biopsies are pending. Patient was also seen by cardiology for A. fib with episode of RVR. Solu Cortef will be discontinued. Hemoglobin came back today at 6.5 and patient will be transfused 1 unit of packed RBCs. Echocardiogram reveals EF of 50-55%, mild mitral regurgitation, moderate to severe tricuspid regurgitation, severe pulmonary hypertension with RVSP 76.53 mmHg. Chest x-ray reveals suspected new small left effusion with slight worsening in patchy left basilar atelectasis and/or consolidation. Continued extensive right lower lobe consolidation. Follow-up to ensure clearance of this finding to exclude possibility of lobar collapse secondary to central obstructing lesion. Possible small right effusion. Patient is also followed by pulmonary medicine and nephrology. 2: Patient had increased confusion last evening dose of Ativan was given. He also had decreased blood pressure and a run of V. tach 14 beats that was self- limited. Patient is not eating very much because he is on a clear liquid diet and does not like it. He is requesting Ativan which is not required on the CIWA protocol at this point. Librium will be started,CIWA protocol will be discontinued. We'll increase Zoloft to 100 mg daily and add Remeron 15 mg at bedtime. Repeat blood work reveals WBC 10.1, hemoglobin 8.2. Sodium 131, potassium 3.8, chloride 92, CO2 37, BUN 73 creatinine 1.2. Blood sugars are running between 76 and 166. General surgery is planning to advance diet to full liquids. Cardiology has signed off this case. 07/08: Patient is seen today on the [facility] unit. He had a small dark BM last pm, no bright red blood. He has been afebrile, HR 60, BP 105/63, PO 100% 3L n/c. He is currently advanced to regular diet and remains on fluid restriction of 1500 ml. He is followed by GI and general surgery and continued on Carafate and Protonix. Sodium 133, K 3.3 and was replaced, Chloride 89, CO2 39, BUN62 and Creat 1.38, BS 87. CBG 86-155. Lasix is on hold and he is on midodrine in enhance BP per nephrology. Cardiology has signed off his case. 07/09: Patient is afebrile, heart rate 65, blood pressure 90/54 217/67, pulse ox 96% on 2 L. Sugar this morning was in the 50s status post D50. Levemir will be discontinued. Patient had a dark stool, hemoglobin ordered. Hemoglobin this morning was 9.3. He denies abdominal pain. Patient required Zaragoza catheter placement yesterday for urinary retention. Blood pressure has been on the soft side and Cardizem CD changed to once daily dosing. Discussed discharge plan wi th the patient and he is now agreeable to go to subacute rehab. Social work is been updated. 07/10: Patient is complaining of abdominal pain and GI will do general surgery has requested that GI perform endoscopy and clipping, continue Protonix and Carafate. Repeat hemoglobin is 8.1. BUN 40 and creatinine 1.2. Patient is Zaragoza catheter for urinary retention, good urine output, Lasix is on hold per nephrology and continued on fluid restriction for hyponatremia. Patient is afebrile, heart rate 80, blood pressure 107/67, pulse ox 100% on 3 L nasal cannula. He monitors atrial fibrillation with controlled rate. Patient is reaching 500 only on incentive spirometry. Discharge planning for subacute rehab which will most likely occur on Tuesday. / patient examined at bedside. Due to ongoing black stools and patient underwent EGD yesterday. 1 cm clean-based duodenal ulcer with no active bleeding was noted with antral erosive gastritis. Labs reviewed patient's hemoglobin stable at 8.3 MCV 105, blood sugar is stable at 97-150. Patient is, answering questions appropriately. Patient is too weak to be discharged home at this point. Dr. Zuñiga consulted for inpatient rehab. Librium was reduced to 5 twice a day. No episode of acute bleeding noted. ROS Constitutional: Denies chills, Denies fever, reports dizziness, reports lightheadedness, endorses lethargy Denies poor appetite, endorses weakness, Denies weight loss Eyes: denies decreased vision, denies diplopia, denies discharge Ears: deny: decreased hearing Ears, nose, mouth and throat: Denies dental pain, Denies headache, Denies nasal discharge, Denies nose pain Cardiovascular: Denies chest pain, Denies decreased exercise tolerance, Denies edema, Denies high blood pressure, Denies irregular heart beat, Denies palpita tions, Denies paroxysmal nocturnal dyspnea, Denies rapid heart beat, Denies shortness of breath Respiratory: Denies dyspnea, Denies home oxygen, Denies wheezing Gastrointestinal: Denies abdominal pain, Denies change in bowel habits, Denies coffee ground emesis, Denies early satiety, Denies excessive gas, Denies heartburn, Denies hematemesis, Denies hematochezia, Denies loss of appetite, Denies nausea, Denies vomiting, reports dark stools Genitourinary: Denies dysuria, Denies flank pain, Denies kidney stones, Denies menorrhagia, Denies urgency, Denies urinary frequency Musculoskeletal: Denies gait dysfunction, Denies limitation of motion, Denies morning stiffness, Denies muscle cramps Integumentary: Denies rash, Denies wounds, Denies brittle nails, Denies change in hair/nails, Denies darkening of skin Neurological: Denies balance difficulties, Denies change in speech, Denies double vision, noted mental status change, noted gait dysfunction, Denies loss of vision, Denies motor disturbance, Denies numbness, Denies paralysis, Denies paresthesias, Denies seizures Psychiatric: Reports anxiety, reports depression Endocrine: Denies excessive sweating, Denies excessive thirst, Denies high blood sugars, Denies palpitations Hematologic/Lymphatic: Denies easy bruising, Denies lymphadenopathy Physical exam - Constitutional General appearance: Awake, 61-year-old male, no acute distress noted - EENT Eyes: anicteric sclerae, PERRLA, normal appearance conjunctival injection ENT: hearing grossly normal - Neck Neck: no lymphadenopathy, normal ROM, no other, no rigidity, no stridor, no thy romegaly - Respiratory Respiratory: Decreased air entry with few Crackles improved wheezing - Cardiovascular Rhythm: Irregularly irregular Heart sounds: normal: S1, S2 Abnormal Heart Sounds: no systolic murmur, no diastolic murmur, no rub, no S3 Gallop, no S4 Gallop, no click, no other - Gastrointestinal General gastrointestinal: normal bowel sounds, soft nontender for some abdominal pain - Integumentary Integumentary: T, peripheral pulses 2+ with less than 2 second capillary refill - Neurologic patient is cooperative, does move all extremities - Musculoskeletal Musculoskeletal: Gait could not be assessed strength equal bilaterally, significant weakness - Psychiatric PsychiatriC Alert oriented 3 Assessment and plan #1 acute metabolic encephalopathy secondary to alcohol intoxication and hyponatremia and elevated ammonia levels. Fall precautions. #2 acute alcohol intoxication with alcohol dependence with history of alcohol withdrawal including DTs alcohol withdrawal protocol initiated. Vitamin supplemented. CIWA protocol discontinued, patient started on Librium Librium c hanged to scheduled dosing. #3 acute suicidal thoughts. Psychiatry consult appreciated and patient started on Zoloft will be increased and Remeron added and melatonin. #4 thrombocytopenia secondary to alcohol abuse and liver dysfunction continue to monitor hold anticoagulants #5 hyperosmolar hyponatremia secondary to alcohol nephrology consult appreciated. Continue po Lasix 40 mg every 12 hours. #6 acute hypoxic respiratory failure with evidence of aspiration pneumonia, acute diastolic heart failure. Continue I&O monitoring daily weights. Continue DuoNeb treatments #7 acute COPD exacerbation. Continue DuoNeb's as needed for shortness of breath. Sputum culture ordered. Pulmonary consult appreciated #8 microscopic bleed per rectum positive fecal occult hemoglobin stable continue monitor CBC may be related to gastritis secondary to alcohol abuse, Protonix 40 twice daily, repeat CBC this afternoon. #9 polysubstance abuse urine drug screen positive for meth and THC. Continue to monitor vitals. EKG negative for any ST or T-wave changes #10 acute kidney injury secondary to AtN. #11 acute A. fib with RVR, chronic persistent. Continue Cardizem CD 120 mg daily. Lopressor 12.5 mg twice daily. #10 acute GI bleed secondary to gastric ulcerations, duodenal ulceration status post blood transfusion, status post EGD on 07/10 . Continue Carafate 1 g 3 times daily, Protonix 40 mg IV push twice daily. #11 Recurrent depression and generalized anxiety disorder. Increase zoloft to 100 mg daily and add remeron 15 mg at hs. 12. Run of nonsustained vtach. Continue to monitor. code status full code DVT. DISCHARG PLAN Subacute rehab on Tuesday at [facility] if patient accepted vs [facility] Objective - Vital Signs Vital signs: Vital Signs Temp 98.2 F 07/11/21 08:07 Pulse 72 07/11/21 13:09 Resp 18 07/11/21 08:07 BP 103/64 07/11/21 08:07 Pulse Ox 100 07/11/21 08:07 Intake & Output 07/10/21 07/11/21 07/11/21 18:59 06:59 18:59 Intake Total 980 400 200 Output Total 600 Balance 380 400 200 Intake: IV 200 Oral 980 400 Output: Urine 600 Other: Voiding Method Indwelling Catheter Indwelling Catheter Indwelling Catheter # Bowel Movements 1 - Labs CBC & Chem 7: 07/11/21 10:56 07/10/21 07:48 Labs: Abnormal Lab Results - Last 24 Hours (Table) 07/10/21 07/11/21 07/11/21 Range/Units 20:12 07:39 10:56 RBC 2.57 L (4.30-5.90) m/uL Hgb 8.3 L (13.0-17.5) gm/dL Hct 27.2 L (39.0-53.0) % MCV 105.9 H (80.0-100.0) fL MCHC 30.3 L (31.0-37.0) g/dL RDW 20.5 H (11.5-15.5) % Lymphocytes # 0.6 L (1.0-4.8) k/uL Macrocytosis Marked A POC Glucose (mg/dL) 150 H 116 H (75-99) mg/dL
[2021-07-11 16:37] LABS: Glucose,Whole Blood 121 mg/dL (75-99)
[2021-07-11 20:44] LABS: Glucose,Whole Blood 108 mg/dL (75-99)
[2021-07-11] MEDS: MIRTAZAPINE 15 MG TAB PO SCH (21:39)
[2021-07-12] MEDS: LACTATED RINGERS 1,000 ML IV SCH ×2 (03:16→23:48)
[2021-07-12] MEDS: ACETAMINOPHEN TAB 325 MG TAB PO PRN ×3 (03:21→22:34)
[2021-07-12 06:54] LABS: Glucose,Whole Blood 104 mg/dL (75-99)
[2021-07-12] MEDS: INSULIN ASPART (NovoLOG) 100 UNIT/ML VIAL SQ SCH ×4 (07:43→20:42)
[2021-07-12] MEDS: SUCRALFATE 1 GM TAB PO SCH ×3 (09:05→16:40)
[2021-07-12] MEDS: METOPROLOL TARTRATE 12.5 MG TAB PO SCH ×2 (09:05→22:33)
[2021-07-12] MEDS: MIDODRINE 5 MG TAB PO SCH ×3 (09:05→16:40)
[2021-07-12] MEDS: PANTOPRAZOLE 40 MG/10 ML VIAL IVP SCH ×2 (09:05→22:34)
[2021-07-12] MEDS: SERTRALINE 100 MG TAB PO SCH (09:05)
[2021-07-12] MEDS: DILTIAZEM CD 120 MG CAP.ER.24H PO SCH (09:06)
[2021-07-12] MEDS: NYSTATIN 100,000 UNIT/ML SUSP 500,000 UNIT/5 ML CUP PO SCH ×4 (09:06→22:34)
[2021-07-12] MEDS: chlordiazePOXIDE 5 MG CAPSULE PO SCH ×2 (09:06→22:33)
[2021-07-12] MEDS: NICOTINE 21MG/24HR PATCH TRANSDERM SCH (09:12)
[2021-07-12 09:25] LABS: African American GFR (CKD) 75.2 (60.0-200.0); Anion Gap 9.2 mmol/L (10.00-18.00); BUN/Creat Ratio 19.17 Ratio (12.00-20.00); Calcium 8.5 mg/dL (8.7-10.3); Carbon Dioxide 31.8 mmol/L (20.0-27.5); Magnesium 2.1 mg/dL (1.5-2.4); Non-African American GFR(CKD) 64.9 (60.0-200.0); Potassium 4.8 mmol/L (3.5-5.5)
--- NOTE | 2021-07-12 09:30 | P.PN ---
Subjective Patient is seen in follow-up for hyponatremia and acute kidney injury. Sodium level is normal today. Renal function also improved. Tolerating oral intake. No melena or hematochezia. Good urine output. Zaragoza catheter had to be reinserted due to urinary retention. Vital signs stable. Gen: The patient appeared well nourished and normally developed. HEENT: Head exam is unremarkable. LUNGS: Breath sounds decreased. HEART: Rate and Rhythm are regular. ABDOMEN: Soft, no distention. EXTREMITITES: Trace edema. Objective - Vital Signs Vital signs: Vital Signs Temp 97.5 F L 07/12/21 07:12 Pulse 97 07/12/21 07:12 Resp 18 07/12/21 07:12 BP 133/72 07/12/21 07:12 Pulse Ox 100 07/12/21 07:12 Intake & Output 07/11/21 07/12/21 07/12/21 18:59 06:59 18:59 Intake Total 200 Balance 200 Intake: IV 200 Other: Voiding Method Indwelling Catheter Indwelling Catheter # Voids 850 - Labs CBC & Chem 7: 07/11/21 10:56 07/12/21 03:25 Labs: Abnormal Lab Results - Last 24 Hours (Table) 07/11/21 07/11/21 07/11/21 Range/Units 10:56 16:31 20:42 RBC 2.57 L (4.30-5.90) m/uL Hgb 8.3 L (13.0-17.5) gm/dL Hct 27.2 L (39.0-53.0) % MCV 105.9 H (80.0-100.0) fL MCHC 30.3 L (31.0-37.0) g/dL RDW 20.5 H (11.5-15.5) % Lymphocytes # 0.6 L (1.0-4.8) k/uL Macrocytosis Marked A Carbon Dioxide (20.0-27.5) mmol/L Anion Gap (10.00-18.00) mmol/L POC Glucose (mg/dL) 121 H 108 H (75-99) mg/dL Calcium (8.7-10.3) mg/dL 07/12/21 07/12/21 Range/Units 03:25 06:52 RBC (4.30-5.90) m/uL Hgb (13.0-17.5) gm/dL Hct (39.0-53.0) % MCV (80.0-100.0) fL MCHC (31.0-37.0) g/dL RDW (11.5-15.5) % Lymphocytes # (1.0-4.8) k/uL Macrocytosis Carbon Dioxide 31.8 H (20.0-27.5) mmol/L Anion Gap 9.20 L (10.00-18.00) mmol/L POC Glucose (mg/dL) 104 H (75-99) mg/dL Calcium 8.5 L (8.7-10.3) mg/dL Assessment and Plan Plan: Assessment: 1. Hypervolemic hyponatremia improved with diuresis. Improved. Also component of poor solute intake. Sodium level 139 today. 2. Volume overload. Improved with diuresis. 3. Alcohol abuse. 4. Acute kidney injury secondary to hemodynamic ATN and acute blood loss anemia. Creatinine 1. today. Elevated BUN secondary to GI bleed as well as steroids. Improving. Baseline creatinine near 1. 5. Metabolic alkalosis from diuresis. Stable. Diuretics held. 6. Acute GI bleed receiving blood transfusions. He did receive IV DDAVP July 04. Eliquis stopped. Surgery following. EGD showed bleeding duodenal and gastric ulcerations. Hemoglobin stable. 7. Hypotension due to severe anemia. Cortisol level not low. Stable. On midodrine. 8. Hypokalemia from diuresis and poor intake. Replaced. Better. Plan: Continue hold Lasix for now. Encouraged oral intake. Avoid nephrotoxins. Continue to monitor renal function and urine output. Maintain midodrine - hold for systolic blood pressure above 110. Monitor hemoglobin and transfuse as needed.
[2021-07-12 11:23] LABS: Glucose,Whole Blood 87 mg/dL (75-99)
[2021-07-12] MEDS: IPRATROPIUM-ALBUTEROL 3 ML NEB INHALATION SCH ×4 (11:45→19:22)
--- NOTE | 2021-07-12 12:47 | P.PN ---
Subjective Progress Note Date: 07/12/21 Principal diagnosis: Duodenal ulcer Patient doing well today. He had a brown colored stool today. No pain. No hemoglobin from this morning. Objective - Vital Signs Vital signs: Vital Signs Temp 97.5 F L 07/12/21 07:12 Pulse 70 07/12/21 11:54 Resp 18 07/12/21 07:12 BP 133/72 07/12/21 07:12 Pulse Ox 100 07/12/21 07:12 Intake & Output 07/11/21 07/12/21 07/12/21 18:59 06:59 18:59 Intake Total 200 Balance 200 Intake: IV 200 Other: Voiding Method Indwelling Catheter Indwelling Catheter Indwelling Catheter # Voids 850 - Exam Abdomen: Soft, nontender, nondistended - Labs CBC & Chem 7: 07/11/21 10:56 07/12/21 03:25 Labs: Abnormal Lab Results - Last 24 Hours (Table) 07/11/21 07/11/21 07/12/21 Range/Units 16:31 20:42 03:25 Carbon Dioxide 31.8 H (20.0-27.5) mmol/L Anion Gap 9.20 L (10.00-18.00) mmol/L POC Glucose (mg/dL) 121 H 108 H (75-99) mg/dL Calcium 8.5 L (8.7-10.3) mg/dL 07/12/21 Range/Units 06:52 Carbon Dioxide (20.0-27.5) mmol/L Anion Gap (10.00-18.00) mmol/L POC Glucose (mg/dL) 104 H (75-99) mg/dL Calcium (8.7-10.3) mg/dL Assessment and Plan (1) Duodenal ulcer Narrative/Plan: Patient doing well at this time. Continue regular diet. Continue antiacids. Possible discharge tomorrow. Current Visit: Yes Status: Acute Code(s): K26.9 - DUODENAL ULCER, UNSP ACUTE OR CHRONIC, W/O HEMOR OR PERF SNOMED Code(s): 26811159
--- NOTE | 2021-07-12 14:27 | P.PN ---
Subjective Progress Note Date: 07/12/21 61 year old male with history of hypertension, atrial fibrillation, atrial flutter, alcohol abuse, COPD who has been seen multiple times in the ER for alcohol intoxication and suicidal ideation in the past was brought in by EMS as his roommate found him unresponsive. Patient drinks daily half a gallon. Patient evaluated in the ER. He would wake up intermittently say a few words and go back to sleep. Patient appears trunk, sees he wants to and appears that he is seeing things in the room as he is pointing at lopes. Patient is unable to maintain eye contact as he drifts into sleep. She received breathing treatment on his way to the hospital and also endorses before he came to the hospital. He received another nebulizing treatment before I evaluated him. Patient continues to wheeze significantly on evaluation. He denies any cough or shortness of breath or chest pain. Patient was afebrile tachycardic at 106, respiratory rate of 15 blood pressure 107/78 oxygen saturation 89% on room air improved to 97% on 2 L. EKG was obtained showed A. fib with rapid response of response at 120 CT of the brain was negative for any acute abnormality does have acute mastoiditis. Chest x-ray suggestive of mild congestive heart failure. Labs are reviewed patient has a WBC of 4.2 hemoglobin 12.7 sodium 118 chloride 82 bicarb 22 BUN 37 creatinine is 0.03. Ammonia level is a 25 alcohol level 218Patient is alcohol intoxication with suicidal ideation. Sitter at bedside ordered. We will discontinue IV fluids as patient appears volume overloaded. Solu-Medrol was initiated at 60 IV every 6 with DuoNeb's with pulmonary consult. Sodium levels with the acetaminophen urine osmolality were ordered. Nephrology consulted for management of sodium. 06/27 patient evaluated bedside is alert and answer questions appropriately. Sitter at bedside. Patient is currently 84% on 3 L of oxygen. Repeat chest x- ray suggestive of right lower lid and a troponin airspace opacity along with le ft lower airspace opacity with developing infectious process with COPD changes 06/28 patient evaluated at bedside lying comfortably in bed. Patient denies any chest pain or shortness of breath. Vitals are stable patient continues from and hyponatremia with a repeat sodium 122 potassium 5.5 chloride 88 BUN 72 creatinine 1.56. Serum osmolarity continues to remain high 305 continue Lasix 40 IV twice a day. Solu-Medrol reduced to every 8 8 hours 60 mg. Nephrology recommendation appreciated 06/29: Repeat chest x-ray reveals cardiomegaly with right greater than left bilateral lower lung acute infiltrates and/or atelectasis with right-sided volume loss remain present. No significant change from yesterday. Patient is followed closely by nephrology with plan to continue IV Lasix encourage oral protein intake and repeat labs tomorrow. Patient has seen by psychiatry with expectation of some cognitive clearing so they can expand the psychiatric assessment. Patient is still quite confused unable to answer questions and follow commands. He has been afebrile, heart rate 88, blood pressure 106/59, pulse ox 97% on 4 L nasal cannula. Sodium 128, potassium 4.0, chloride 85, CO2 38, BUN 63 creatinine 1.32. Blood sugars are running between 100 4891. TSH 1.250. Urinalysis negative for infection. Sodium 38. 06/30: The patient is awake this morning. He knows where he is at. He states he normally drinks a fifth of liquor per day. He is able to verbalize that he would like to have it inhaler when he leaves the hospital. Patient is followed by pulmonary medicine Repeat chest x-ray reveals improved aeration at the left base. Continued extensive consolidation or atelectasis of the right lower lobe. Patient has been afebrile, heart rate 79, blood pressure 126/76, pulse ox 92% on 3 L. cafeteria monitor is atrial fibrillation with controlled rate. Repeat blood work reveals hemoglobin 9.7, platelet count 129. Sodium 132, potassium 3.1, chloride 89, CO2 39, BUN 60 and creatinine 1.03. Blood sugars are running between 172 and 222. Patient is having good urine output. 07/01: Patient's mental status is improving. He is able to answer questions appropriately. Patient has been afebrile, heart rate in the 80s to 100s, blood pressure 118/60, pulse ox 90% on 3 L nasal cannula. Capillary blood glucose running between 160 and 358. Levemir 10 units at bedtime added. Zaragoza catheter remains in place. Senior [employer] recommended continuing IV Lasix encourage oral protein intake.. 07/02: Patient is verbalizing that he still not feeling well enough to go home today. He is awake alert and oriented 3. His mental status is significantly improved. His plan is to return to his current living situation and social work has been working with him on this. Patient apparently has an oxygen concentrator but does not use it. We will be making arrangements for home oxygen therapy. He is pulse oxing 97% on 3 L. Heart rate is running in the 100 and teens to 121. Blood pressure 114/51. He has been afebrile. Low-dose Lopressor will be added to Cardizem for rate control for atrial fibrillation. Patient has had no signs of bleeding, eliquis will be started. 07/03: Patient is having drop in blood pressure with lightheadedness. This morning blood pressure 1 was 78/42. We've ordered a fluid bolus of 250 ML's due to history of heart failure, hold Cardizem, Lasix, metoprolol. Noted the patient had been taken off Solu-Medrol on 07/01 by pulmonary medicine. Cortisone level be checked and patient will be started on Solu-Cortef 100 mg IV every 8 hours. Repeat blood work reveals sodium 132, potassium 4.1, chloride 87, CO2 38, BUN 100 and creatinine 1.13. Blood sugars are running between 117 and 155. No new plan from pulmonary medicine. Patient has been seen by psychiatry with recommendations to monitor for alcohol withdrawal with Ativan when necessary on [facility] protocol. Zoloft 50 mg daily was added and melatonin 5 mg at bedtime. 07/06: Over the weekend, patient developed GI bleed, eliquis was placed on hold and patient underwent EGD with Dr. Kaiser finding acute gastric ulcerations and bleeding, acute duodenal ulcerations with bleeding, acute severe erosive esophagitis from candidiasis, gastroesophageal reflux disease. Biopsies are pending. Patient was also seen by cardiology for A. fib with episode of RVR. Solu Cortef will be discontinued. Hemoglobin came back today at 6.5 and patient will be transfused 1 unit of packed RBCs. Echocardiogram reveals EF of 50-55%, mild mitral regurgitation, moderate to severe tricuspid regurgitation, severe pulmonary hypertension with RVSP 76.53 mmHg. Chest x-ray reveals suspected new small left effusion with slight worsening in patchy left basilar atelectasis and/or consolidation. Continued extensive right lower lobe consolidation. Follow-up to ensure clearance of this finding to exclude possibility of lobar collapse secondary to central obstructing lesion. Possible small right effusion. Patient is also followed by pulmonary medicine and nephrology. 2: Patient had increased confusion last evening dose of Ativan was given. He also had decreased blood pressure and a run of V. tach 14 beats that was self- limited. Patient is not eating very much because he is on a clear liquid diet and does not like it. He is requesting Ativan which is not required on the CIWA protocol at this point. Librium will be started,CIWA protocol will be discontinued. We'll increase Zoloft to 100 mg daily and add Remeron 15 mg at bedtime. Repeat blood work reveals WBC 10.1, hemoglobin 8.2. Sodium 131, potassium 3.8, chloride 92, CO2 37, BUN 73 creatinine 1.2. Blood sugars are running between 76 and 166. General surgery is planning to advance diet to full liquids. Cardiology has signed off this case. 07/08: Patient is seen today on the [facility] unit. He had a small dark BM last pm, no bright red blood. He has been afebrile, HR 60, BP 105/63, PO 100% 3L n/c. He is currently advanced to regular diet and remains on fluid restriction of 1500 ml. He is followed by GI and general surgery and continued on Carafate and Protonix. Sodium 133, K 3.3 and was replaced, Chloride 89, CO2 39, BUN62 and Creat 1.38, BS 87. CBG 86-155. Lasix is on hold and he is on midodrine in enhance BP per nephrology. Cardiology has signed off his case. 07/09: Patient is afebrile, heart rate 65, blood pressure 90/54 217/67, pulse ox 96% on 2 L. Sugar this morning was in the 50s status post D50. Levemir will be discontinued. Patient had a dark stool, hemoglobin ordered. Hemoglobin this morning was 9.3. He denies abdominal pain. Patient required Zaragoza catheter placement yesterday for urinary retention. Blood pressure has been on the soft side and Cardizem CD changed to once daily dosing. Discussed discharge plan wi th the patient and he is now agreeable to go to subacute rehab. Social work is been updated. 07/10: Patient is complaining of abdominal pain and GI will do general surgery has requested that GI perform endoscopy and clipping, continue Protonix and Carafate. Repeat hemoglobin is 8.1. BUN 40 and creatinine 1.2. Patient is Zaragoza catheter for urinary retention, good urine output, Lasix is on hold per nephrology and continued on fluid restriction for hyponatremia. Patient is afebrile, heart rate 80, blood pressure 107/67, pulse ox 100% on 3 L nasal cannula. He monitors atrial fibrillation with controlled rate. Patient is reaching 500 only on incentive spirometry. Discharge planning for subacute rehab which will most likely occur on Tuesday. 07/11 patient examined at bedside. Due to ongoing black stools and patient underwent EGD yesterday. 1 cm clean-based duodenal ulcer with no active bleeding was noted with antral erosive gastritis. Labs reviewed patient's hemoglobin stable at 8.3 MCV 105, blood sugar is stable at 97-150. Patient is, answering questions appropriately. Patient is too weak to be discharged home at this point. Dr. Zuñiga consulted for inpatient rehab. Librium was reduced to 5 twice a day. No episode of acute bleeding noted. 07/12 patient examined bedside. No recent episode of dark stools. Labs reviewed, magnesium 2.1 sodium 139 potassium 4.8. No use CBC to evaluate today. Continue Librium at 5 twice daily. Patient's anxiety is controlled on current dose of Librium and Zoloft. ROS Constitutional: Denies chills, Denies fever, reports dizziness, reports lightheadedness, endorses lethargy Denies poor appetite, endorses weakness, Denies weight loss Eyes: denies decreased vision, denies diplopia, denies discharge Ears: deny: decreased hearing Ears, nose, mouth and throat: Denies dental pain, Denies headache, Denies nasal discharge, Denies nose pain Cardiovascular: Denies chest pain, Denies decreased exercise tolerance, Denies edema, Denies high blood pressure, Denies irregular heart beat, Denies palpitations, Denies paroxysmal nocturnal dyspnea, Denies rapid heart beat, Denies shortness of breath Respiratory: Denies dyspnea, Denies home oxygen, Denies wheezing Gastrointestinal: Denies abdominal pain, Denies change in bowel habits, Denies coffee ground emesis, Denies early satiety, Denies excessive gas, Denies heartburn, Denies hematemesis, Denies hematochezia, Denies loss of appetite, Denies nausea, Denies vomiting, reports dark stools Genitourinary: Denies dysuria, Denies flank pain, Denies kidney stones, Denies menorrhagia, Denies urgency, Denies urinary frequency Musculoskeletal: Denies gait dysfunction, Denies limitation of motion, Denies morning stiffness, Denies muscle cramps Integumentary: Denies rash, Denies wounds, Denies brittle nails, Denies change in hair/nails, Denies darkening of skin Neurological: Denies balance difficulties, Denies change in speech, Denies double vision, Shirlene status improved, noted gait dysfunction, Denies loss of vision, Denies motor disturbance, Denies numbness, Denies paralysis, Denies paresthesias, Denies seizures Psychiatric: Reports anxiety, reports depression Endocrine: Denies excessive sweating, Denies excessive thirst, Denies high blood sugars, Denies palpitations Hematologic/Lymphatic: Denies easy bruising, Denies lymphadenopathy Physical exam - Constitutional General appearance: Awake, 61-year-old male, no acute distress noted - EENT Eyes: anicteric sclerae, PERRLA, normal appearance conjunctival injection ENT: hearing grossly normal - Neck Neck: no lymphadenopathy, normal ROM, no other, no rigidity, no stridor, no thyromegaly - Respiratory Respiratory: Decreased air entry with few Crackles improved wheezing - Cardiovascular Rhythm: Irregularly irregular Heart sounds: normal: S1, S2 Abnormal Heart Sounds: no systolic murmur, no diastolic murmur, no rub, no S3 Gallop, no S4 Gallop, no click, no other - Gastrointestinal General gastrointestinal: normal bowel sounds, soft nontender for some abdominal pain - Integumentary Integumentary: T, peripheral pulses 2+ with less than 2 second capillary refill - Neurologic patient is cooperative, does move all extremities - Musculoskeletal Musculoskeletal: Gait could not be assessed strength equal bilaterally, significant weakness - Psychiatric PsychiatriC Alert oriented 3 Assessment and plan #1 acute metabolic encephalopathy secondary to alcohol intoxication and hyponatremia and elevated ammonia levels. Improved Fall precautions. #2 acute alcohol intoxication with alcohol dependence with history of alcohol withdrawal including DTs alcohol withdrawal protocol initiated. Vitamin supplemented. CIWA protocol discontinued, patient started on Librium Librium changed to scheduled dosing. #3 acute suicidal thoughts. Psychiatry consult appreciated and patient started on Zoloft will be increased and Remeron added and melatonin. #4 thrombocytopenia secondary to alcohol abuse and liver dysfunction continue to monitor hold anticoagulants #5 hyperosmolar hyponatremia secondary to alcohol nephrology consult appreciated. Continue po Lasix 40 mg every 12 hours. #6 acute hypoxic respiratory failure with evidence of aspiration pneumonia, acute diastolic heart failure. Continue I&O monitoring daily weights. Continue DuoNeb treatments #7 acute COPD exacerbation. Continue DuoNeb's as needed for shortness of breath. Sputum culture ordered. Pulmonary consult appreciated #8 microscopic bleed per rectum positive fecal occult hemoglobin stable continue monitor CBC may be related to gastritis secondary to alcohol abuse, Protonix 40 twice daily, repeat CBC this afternoon. #9 polysubstance abuse urine drug screen positive for meth and THC. Continue to monitor vitals. EKG negative for any ST or T-wave changes #10 acute kidney injury secondary to AtN. #11 acute A. fib with RVR, chronic persistent. Continue Cardizem CD 120 mg daily. Lopressor 12.5 mg twice daily. #10 acute GI bleed secondary to gastric ulcerations, duodenal ulceration status post blood transfusion, status post EGD on 07/10 . Continue Carafate 1 g 3 times daily, Protonix 40 mg IV push twice daily. #11 Recurrent depression and generalized anxiety disorder. Increase zoloft to 100 mg daily and add remeron 15 mg at hs. 12. Run of nonsustained vtach. Continue to monitor. code status full code DVT. DISCHARG PLAN Subacute rehab on Tuesday at [facility] if patient accepted vs [facility] Objective - Vital Signs Vital signs: Vital Signs Temp 98.4 F 07/12/21 13:44 Pulse 75 07/12/21 13:44 Resp 18 07/12/21 13:44 BP 99/63 07/12/21 13:44 Pulse Ox 96 07/12/21 13:44 Intake & Output 07/11/21 07/12/21 07/12/21 18:59 06:59 18:59 Intake Total 200 Balance 200 Intake: IV 200 Other: Voiding Method Indwelling Catheter Indwelling Catheter Indwelling Catheter # Voids 850 - Labs CBC & Chem 7: 07/11/21 10:56 07/12/21 03:25 Labs: Abnormal Lab Results - Last 24 Hours (Table) 07/11/21 07/11/21 07/12/21 Range/Units 16:31 20:42 03:25 Carbon Dioxide 31.8 H (20.0-27.5) mmol/L Anion Gap 9.20 L (10.00-18.00) mmol/L POC Glucose (mg/dL) 121 H 108 H (75-99) mg/dL Calcium 8.5 L (8.7-10.3) mg/dL 07/12/21 Range/Units 06:52 Carbon Dioxide (20.0-27.5) mmol/L Anion Gap (10.00-18.00) mmol/L POC Glucose (mg/dL) 104 H (75-99) mg/dL Calcium (8.7-10.3) mg/dL
[2021-07-12 16:14] LABS: Glucose,Whole Blood 124 mg/dL (75-99)
[2021-07-12 20:20] LABS: Glucose,Whole Blood 117 mg/dL (75-99)
[2021-07-12] MEDS: MIRTAZAPINE 15 MG TAB PO SCH (22:34)
[2021-07-13] MEDS: ACETAMINOPHEN TAB 325 MG TAB PO PRN ×3 (04:18→20:47)
--- NOTE | 2021-07-13 05:58 | P.CONS ---
History of Present Illness - Chief Complaint Medical debility - History of Present Illness I had the opportunity to see patient for inpatient rehab consultation with regard to medical debility. Patient admitted to [facility] June 26 with unresponsive, alcohol encephalopathy. Admitted to Dr. Archer. Seen by pulmonary, Dr. Cabral for acute hypoxic respiratory failure. Seen by nephrology, Dr. Cardozo, for acute kidney injury. Seen by cardiology for chronic atrial fibrillation. Seen by Dr. Kaiser for gastritis and esophagitis. Seen by Dr. Claudia Farooq who diagnosed possible gastric ulcer. Chest x-rays followed for left pleural atelectasis. Started therapies. Yesterday PT note indicates supervis ion for bed mobility, transfers, gait 60 feet with roller walker but fatigues. OT reports supervision for feeding and moderate assistance for grooming and upper dressing maximal assistance for lower dressing and bathing and total assistance for toileting. Recommending group home facility. Previous functional history elicited from patient: 52-year-old right-handed white male who is single lives in one floor home with a friend. Patient unemployed. Describes independent with own cooking, laundry, tub bath or standing shower and gait without device. Does not drive. No PCP. Smokes a pa ck a day and just quit alcohol. Review of Systems Review of systems: ENT: Denies sneezes or discharge. Eyes: Denies discharge or photophobia. Cardiac: Denies chest pain or palpitation. Pulmonary: Denies cough or shortness of breath. Gastrointestinal: Denies nausea, emesis, constipation, diarrhea. Genitourinary: Denies discharge or frequency. Musculoskeletal: Denies muscle or bone aches. Neurologic: General weakness and lightheadedness when up and walking. Endocrine: Denies shakes or sweats. Oncology: Denies cancers. Dermatologic: Denies rash, itching, pruritus. ALLERGY/immunology: Denies sneezes, rashes. Past Medical History Past Medical History: Atrial Fibrillation, COPD, Hypertension History of Any Multi-Drug Resistant Organisms: None Reported Past Surgical History: No Surgical Hx Reported Past Anesthesia/Blood Transfusion Reactions: No Reported Reaction Past Psychological History: Depression Smoking Status: Current every day smoker Past Alcohol Use History: Abuse, Daily, Heavy Additional Past Alcohol Use History / Comment(s): Patient states he drinks a fifth of vodka daily Past Drug Use History: Marijuana Additional Drug Use History / Comment(s): Patient states he does not do meth, bu t the people he lives with do. Medications and Allergies Home Medications Medication Instructions Recorded Confirmed Type Unable To Assess [Unable to Assess] 06/26/21 06/26/21 History Allergies Allergy/AdvReac Type Severity Reaction Status Date / Time No Known Allergies Allergy Verified 06/26/21 11:56 Physical Exam Vitals: Vital Signs Temp Pulse Pulse Resp BP Pulse Ox 07/13/21 04:06 80 112/71 07/13/21 03:46 97.9 F 61 18 103/62 97 07/12/21 19:54 98.4 F 65 16 116/69 94 L 07/12/21 19:48 75 18 07/12/21 19:32 68 07/12/21 19:22 68 94 L 07/12/21 16:07 70 07/12/21 15:51 70 07/12/21 13:44 98.4 F 75 18 99/63 96 07/12/21 11:54 70 07/12/21 11:45 70 07/12/21 07:12 97.5 F L 97 18 133/72 100 Intake and Output 07/12/21 07/12/21 07/13/21 14:59 22:59 06:59 Output Total 515 Balance -515 Output: Urine 515 Other: Voiding Method Indwelling Catheter Indwelling Catheter Skin: Good color, texture, turgor. General: Overweight build and comfortable appearance. Head: Normocephalic, atraumatic. Eyes: Symmetric. Pupils equal round. Ears: Symmetric. Hearing within normal limits. Mouth: Clear. Neck: Supple. Carotid without bruit. Cardiac: Regular rate and rhythm. Lungs: Clear anteriorly and posteriorly. Abdomen: Soft active nontender. Extremities: Normal tone. Neurological: Mental status: Alert, cooperative, pleasant. Cranial nerves: Symmetric facial tone and trapezius. Motor: Active movement all 4 limbs greater than antigravity. Sensation: Intact throughout. DTRs: Symmetric and equal throughout. Mobility: Reports requires assistance in room including to bathroom Results CBC & Chem 7: 07/11/21 10:56 07/12/21 03:25 Labs: Abnormal Lab Results - Last 24 Hours (Table) 07/12/21 07/12/21 07/12/21 Range/Units 03:25 06:52 16:09 Carbon Dioxide 31.8 H (20.0-27.5) mmol/L Anion Gap 9.20 L (10.00-18.00) mmol/L POC Glucose (mg/dL) 104 H 124 H (75-99) mg/dL Calcium 8.5 L (8.7-10.3) mg/dL 07/12/21 Range/Units 20:19 Carbon Dioxide (20.0-27.5) mmol/L Anion Gap (10.00-18.00) mmol/L POC Glucose (mg/dL) 117 H (75-99) mg/dL Calcium (8.7-10.3) mg/dL Assessment and Plan (1) Acute exacerbation of chronic obstructive pulmonary disease Current Visit: Yes Status: Acute Code(s): J44.1 - CHRONIC OBSTRUCTIVE PULMONARY DISEASE W (ACUTE) EXACERBATION SNOMED Code(s): 375177846 (2) Alcoholic intoxication Current Visit: Yes Status: Acute Code(s): F10.929 - ALCOHOL USE, UNSPECIFIED WITH INTOXICATION, UNSPECIFIED SNOMED Code(s): 38097253 (3) Altered mental status Current Visit: Yes Status: Acute Code(s): R41.82 - ALTERED MENTAL STATUS, UNSPECIFIED SNOMED Code(s): 036511777 (4) Duodenal ulcer hemorrhagic Current Visit: Yes Status: Acute Code(s): K26.4 - CHRONIC OR UNSPECIFIED DUODENAL ULCER WITH HEMORRHAGE SNOMED Code(s): 29793114 Plan: Comments and plan: At yesterday PT note indicates patient at supervision level, that is does not require definite physical assist for any mobility. OT note is from last week. Insurance will require updated therapy notes and that they documented safety concerns that his need for physical assist. We'll follow for therapy notes today. Otherwise should consider SNF placement at this time.
[2021-07-13 07:10] LABS: Glucose,Whole Blood 113 mg/dL (75-99)
[2021-07-13] MEDS: INSULIN ASPART (NovoLOG) 100 UNIT/ML VIAL SQ SCH ×4 (07:13→20:10)
[2021-07-13] MEDS: IPRATROPIUM-ALBUTEROL 3 ML NEB INHALATION SCH ×4 (08:18→19:44)
[2021-07-13] MEDS: chlordiazePOXIDE 5 MG CAPSULE PO SCH ×2 (08:28→20:24)
[2021-07-13] MEDS: METOPROLOL TARTRATE 12.5 MG TAB PO SCH ×2 (08:28→20:24)
[2021-07-13] MEDS: NYSTATIN 100,000 UNIT/ML SUSP 500,000 UNIT/5 ML CUP PO SCH ×4 (08:28→22:17)
[2021-07-13] MEDS: DILTIAZEM CD 120 MG CAP.ER.24H PO SCH (08:28)
[2021-07-13] MEDS: MIDODRINE 5 MG TAB PO SCH ×3 (08:28→16:57)
[2021-07-13] MEDS: SUCRALFATE 1 GM TAB PO SCH ×3 (08:28→16:57)
[2021-07-13] MEDS: NICOTINE 21MG/24HR PATCH TRANSDERM SCH (08:28)
[2021-07-13] MEDS: SERTRALINE 100 MG TAB PO SCH (08:28)
[2021-07-13] MEDS: PANTOPRAZOLE 40 MG/10 ML VIAL IVP SCH ×2 (08:29→20:24)
[2021-07-13 08:51] LABS: Anisocytosis Slight; HCT 28.5 % (39.0-53.0); HGB 8.3 gm/dL (13.0-17.5); Hypochromasia Marked; MCH 31.5 pg (25.0-35.0); MCHC 29.3 g/dL (31.0-37.0); MCV 107.4 fL (80.0-100.0); Macrocytosis Marked; Mean Platelet Volume 8.2; Platelet Count 195 k/uL (150-450); RBC 2.65 m/uL (4.30-5.90); RDW 18.6 % (11.5-15.5)
--- NOTE | 2021-07-13 11:03 | P.PN ---
Subjective Progress Note Date: 07/13/21 CHIEF COMPLAINT: Acute anemia HISTORY OF PRESENT ILLNESS: The patient is a 61 year old male admitted to 06/26/2021 after being found unresponsive. Patient has history of heavy alcohol abuse. Additional workup demonstrated new onset atrial fibrillation. Patient was admitted and placed on blood thinner. Hemoglobin on admission was 12.7. Hemoglobin did drop to 4.0. Patient has received a total of 4 units of blood during his admission. Patient is status post EGD demonstrating Acute gastric ulcerations with bleeding, Acute duodenal ulceration with bleeding, Acute severe erosive esophagitis from candidiasis and Gastroesophageal reflux disease. Patient did undergo EGD with Dr. Farooq on 07/11/2021 which revealed a 1 cm clean-based a well no bulbar ulcer with no active bleeding. And Antral erosive gastritis. Patient continues complaining of epigastric abdominal pain. Reports the pain is getting better. Denies any nausea vomiting. Stools brown. Afebrile. Hemoglobin stable at 8.3 patient tolerating regular diet. PHYSICAL EXAM: VITAL SIGNS: Reviewed GENERAL: Well-developed in no acute distress. HEENT: No sclera icterus. Extraocular movements grossly intact. Moist buccal mucosa. Head is atraumatic, normocephalic. Hears conversational speech. No nasal drainage. NECK: Supple without lymphadenopathy. CHEST: Non-labored respirations and equal bilateral excursions. CARDIOVASCULAR: Palpable 2+ radial pulses. ABDOMEN: Soft. Nondistended. Epigastric tenderness with palpation MUSCULOSKELETAL: No clubbing or cyanosis. NEUROLOGIC: No focal or lateralizing signs. Cranial nerves II through XII grossly intact. PSYCH: Appropriate affect. Alert and oriented to person, place and time. SKIN: Well perfused. Good skin turgor. ASSESSMENT: 1. Acute blood loss anemia secondary to bleeding from gastric ulcer and duodenal ulcer. EGD demonstrated acute gastric ulcerations with bleeding, Acute duodenal ulceration with bleeding, Acute severe erosive esophagitis from candid iasis and Gastroesophageal reflux disease. Repeat EGD showed no evidence of bleeding at the duodenal ulcer. 2. Anticoagulant exposure 3. History of heavy alcohol abuse disorder 4. Hyponatremia improved PLAN: -Patient scheduled for possible discharge today to rehab -Patient can be discharge from surgical standpoint -surgical service will sign off. Please call with any questions or concerns -Continue Protonix and Carafate -Avoid all anticoagulation and NSAIDs due to severe acute blood loss anemia and multiple ulcerations in the stomach and duodenal -Continue nystatin swish and swallow -Continue supportive care Physician Long Winder Tender note has been reviewed by physician. Signing provider agrees with the documented findings, assessment, and plan of care. Objective - Vital Signs Vital signs: Vital Signs Temp 97.4 F L 07/13/21 09:16 Pulse 69 07/13/21 09:16 Resp 18 07/13/21 09:16 BP 113/65 07/13/21 09:16 Pulse Ox 100 07/13/21 09:16 Intake & Output 07/12/21 07/13/21 07/13/21 18:59 06:59 18:59 Output Total 515 Balance -515 Output: Urine 515 Other: Voiding Method Indwelling Catheter Indwelling Catheter Indwelling Catheter # Voids 750 - Labs CBC & Chem 7: 07/13/21 08:31 07/12/21 03:25 Labs: Abnormal Lab Results - Last 24 Hours (Table) 07/12/21 07/12/21 07/13/21 Range/Units 16:09 20:19 07:09 RBC (4.30-5.90) m/uL Hgb (13.0-17.5) gm/dL Hct (39.0-53.0) % MCV (80.0-100.0) fL MCHC (31.0-37.0) g/dL RDW (11.5-15.5) % Macrocytosis POC Glucose (mg/dL) 124 H 117 H 113 H (75-99) mg/dL 07/13/21 Range/Units 08:31 RBC 2.65 L (4.30-5.90) m/uL Hgb 8.3 L (13.0-17.5) gm/dL Hct 28.5 L (39.0-53.0) % MCV 107.4 H (80.0-100.0) fL MCHC 29.3 L (31.0-37.0) g/dL RDW 18.6 H (11.5-15.5) % Macrocytosis Marked A POC Glucose (mg/dL) (75-99) mg/dL
[2021-07-13 11:55] LABS: Glucose,Whole Blood 166 mg/dL (75-99)
--- NOTE | 2021-07-13 13:47 | P.PN ---
Subjective Progress Note Date: 07/13/21 61 year old male with history of hypertension, atrial fibrillation, atrial flutter, alcohol abuse, COPD who has been seen multiple times in the ER for alcohol intoxication and suicidal ideation in the past was brought in by EMS as his roommate found him unresponsive. Patient drinks daily half a gallon. Patient evaluated in the ER. He would wake up intermittently say a few words and go back to sleep. Patient appears trunk, sees he wants to and appears that he is seeing things in the room as he is pointing at lopes. Patient is unable to maintain eye contact as he drifts into sleep. She received breathing treatment on his way to the hospital and also endorses before he came to the hospital. He received another nebulizing treatment before I evaluated him. Patient continues to wheeze significantly on evaluation. He denies any cough or shortness of breath or chest pain. Patient was afebrile tachycardic at 106, respiratory rate of 15 blood pressure 107/78 oxygen saturation 89% on room air improved to 97% on 2 L. EKG was obtained showed A. fib with rapid response of response at 120 CT of the brain was negative for any acute abnormality does have acute mastoiditis. Chest x-ray suggestive of mild congestive heart failure. Labs are reviewed patient has a WBC of 4.2 hemoglobin 12.7 sodium 118 chloride 82 bicarb 22 BUN 37 creatinine is 0.03. Ammonia level is a 25 alcohol level 218Patient is alcohol intoxication with suicidal ideation. Sitter at bedside ordered. We will discontinue IV fluids as patient appears volume overloaded. Solu-Medrol was initiated at 60 IV every 6 with DuoNeb's with pulmonary consult. Sodium levels with the acetaminophen urine osmolality were ordered. Nephrology consulted for management of sodium. 06/27 patient evaluated bedside is alert and answer questions appropriately. Sitter at bedside. Patient is currently 84% on 3 L of oxygen. Repeat chest x- ray suggestive of right lower lid and a troponin airspace opacity along with le ft lower airspace opacity with developing infectious process with COPD changes 06/28 patient evaluated at bedside lying comfortably in bed. Patient denies any chest pain or shortness of breath. Vitals are stable patient continues from and hyponatremia with a repeat sodium 122 potassium 5.5 chloride 88 BUN 72 creatinine 1.56. Serum osmolarity continues to remain high 305 continue Lasix 40 IV twice a day. Solu-Medrol reduced to every 8 8 hours 60 mg. Nephrology recommendation appreciated 06/29: Repeat chest x-ray reveals cardiomegaly with right greater than left bilateral lower lung acute infiltrates and/or atelectasis with right-sided volume loss remain present. No significant change from yesterday. Patient is followed closely by nephrology with plan to continue IV Lasix encourage oral protein intake and repeat labs tomorrow. Patient has seen by psychiatry with expectation of some cognitive clearing so they can expand the psychiatric assessment. Patient is still quite confused unable to answer questions and follow commands. He has been afebrile, heart rate 88, blood pressure 106/59, pulse ox 97% on 4 L nasal cannula. Sodium 128, potassium 4.0, chloride 85, CO2 38, BUN 63 creatinine 1.32. Blood sugars are running between 100 4891. TSH 1.250. Urinalysis negative for infection. Sodium 38. 06/30: The patient is awake this morning. He knows where he is at. He states he normally drinks a fifth of liquor per day. He is able to verbalize that he would like to have it inhaler when he leaves the hospital. Patient is followed by pulmonary medicine Repeat chest x-ray reveals improved aeration at the left base. Continued extensive consolidation or atelectasis of the right lower lobe. Patient has been afebrile, heart rate 79, blood pressure 126/76, pulse ox 92% on 3 L. front desk monitor is atrial fibrillation with controlled rate. Repeat blood work reveals hemoglobin 9.7, platelet count 129. Sodium 132, potassium 3.1, chloride 89, CO2 39, BUN 60 and creatinine 1.03. Blood sugars are running between 172 and 222. Patient is having good urine output. 07/01: Patient's mental status is improving. He is able to answer questions appropriately. Patient has been afebrile, heart rate in the 80s to 100s, blood pressure 118/60, pulse ox 90% on 3 L nasal cannula. Capillary blood glucose running between 160 and 358. Levemir 10 units at bedtime added. Zaragoza catheter remains in place. Fashion Artist recommended continuing IV Lasix encourage oral protein intake.. 07/02: Patient is verbalizing that he still not feeling well enough to go home today. He is awake alert and oriented 3. His mental status is significantly improved. His plan is to return to his current living situation and social work has been working with him on this. Patient apparently has an oxygen concentrator but does not use it. We will be making arrangements for home oxygen therapy. He is pulse oxing 97% on 3 L. Heart rate is running in the 100 and teens to 121. Blood pressure 114/51. He has been afebrile. Low-dose Lopressor will be added to Cardizem for rate control for atrial fibrillation. Patient has had no signs of bleeding, eliquis will be started. 07/03: Patient is having drop in blood pressure with lightheadedness. This morning blood pressure 1 was 78/42. We've ordered a fluid bolus of 250 ML's due to history of heart failure, hold Cardizem, Lasix, metoprolol. Noted the patient had been taken off Solu-Medrol on 07/01 by pulmonary medicine. Cortisone level be checked and patient will be started on Solu-Cortef 100 mg IV every 8 hours. Repeat blood work reveals sodium 132, potassium 4.1, chloride 87, CO2 38, BUN 100 and creatinine 1.13. Blood sugars are running between 117 and 155. No new plan from pulmonary medicine. Patient has been seen by psychiatry with recommendations to monitor for alcohol withdrawal with Ativan when necessary on [facility] protocol. Zoloft 50 mg daily was added and melatonin 5 mg at bedtime. 07/06: Over the weekend, patient developed GI bleed, eliquis was placed on hold and patient underwent EGD with Dr. Kaiser finding acute gastric ulcerations and bleeding, acute duodenal ulcerations with bleeding, acute severe erosive esophagitis from candidiasis, gastroesophageal reflux disease. Biopsies are pending. Patient was also seen by cardiology for A. fib with episode of RVR. Solu Cortef will be discontinued. Hemoglobin came back today at 6.5 and patient will be transfused 1 unit of packed RBCs. Echocardiogram reveals EF of 50-55%, mild mitral regurgitation, moderate to severe tricuspid regurgitation, severe pulmonary hypertension with RVSP 76.53 mmHg. Chest x-ray reveals suspected new small left effusion with slight worsening in patchy left basilar atelectasis and/or consolidation. Continued extensive right lower lobe consolidation. Follow-up to ensure clearance of this finding to exclude possibility of lobar collapse secondary to central obstructing lesion. Possible small right effusion. Patient is also followed by pulmonary medicine and nephrology. 2: Patient had increased confusion last evening dose of Ativan was given. He also had decreased blood pressure and a run of V. tach 14 beats that was self- limited. Patient is not eating very much because he is on a clear liquid diet and does not like it. He is requesting Ativan which is not required on the CIWA protocol at this point. Librium will be started,CIWA protocol will be discontinued. We'll increase Zoloft to 100 mg daily and add Remeron 15 mg at bedtime. Repeat blood work reveals WBC 10.1, hemoglobin 8.2. Sodium 131, potassium 3.8, chloride 92, CO2 37, BUN 73 creatinine 1.2. Blood sugars are running between 76 and 166. General surgery is planning to advance diet to full liquids. Cardiology has signed off this case. 07/08: Patient is seen today on the [facility] unit. He had a small dark BM last pm, no bright red blood. He has been afebrile, HR 60, BP 105/63, PO 100% 3L n/c. He is currently advanced to regular diet and remains on fluid restriction of 1500 ml. He is followed by GI and general surgery and continued on Carafate and Protonix. Sodium 133, K 3.3 and was replaced, Chloride 89, CO2 39, BUN62 and Creat 1.38, BS 87. CBG 86-155. Lasix is on hold and he is on midodrine in enhance BP per nephrology. Cardiology has signed off his case. 07/09: Patient is afebrile, heart rate 65, blood pressure 90/54 217/67, pulse ox 96% on 2 L. Sugar this morning was in the 50s status post D50. Levemir will be discontinued. Patient had a dark stool, hemoglobin ordered. Hemoglobin this morning was 9.3. He denies abdominal pain. Patient required Zaragoza catheter placement yesterday for urinary retention. Blood pressure has been on the soft side and Cardizem CD changed to once daily dosing. Discussed discharge plan wi th the patient and he is now agreeable to go to subacute rehab. Social work is been updated. 07/10: Patient is complaining of abdominal pain and GI will do general surgery has requested that GI perform endoscopy and clipping, continue Protonix and Carafate. Repeat hemoglobin is 8.1. BUN 40 and creatinine 1.2. Patient is Zaragoza catheter for urinary retention, good urine output, Lasix is on hold per nephrology and continued on fluid restriction for hyponatremia. Patient is afebrile, heart rate 80, blood pressure 107/67, pulse ox 100% on 3 L nasal cannula. He monitors atrial fibrillation with controlled rate. Patient is reaching 500 only on incentive spirometry. Discharge planning for subacute rehab which will most likely occur on Tuesday. 07/11 patient examined at bedside. Due to ongoing black stools and patient underwent EGD yesterday. 1 cm clean-based duodenal ulcer with no active bleeding was noted with antral erosive gastritis. Labs reviewed patient's hemoglobin stable at 8.3 MCV 105, blood sugar is stable at 97-150. Patient is, answering questions appropriately. Patient is too weak to be discharged home at this point. Dr. Zuñiga consulted for inpatient rehab. Librium was reduced to 5 twice a day. No episode of acute bleeding noted. 07/12 patient examined bedside. No recent episode of dark stools. Labs reviewed, magnesium 2.1 sodium 139 potassium 4.8. No use CBC to evaluate today. Continue Librium at 5 twice daily. Patient's anxiety is controlled on current dose of Librium and Zoloft. 07/13: Patient denies having any bloody stools. No nausea or vomiting. Abdominal pain is improving. His stools have been brown in color. He is currently tolerating regular diet.Patient remains with Zaragoza in place due to urinary retention. He has been afebrile, heart rate 69, blood pressure 113/65. Repeat blood work reveals WBC 6, hemoglobin 8.3, platelet count 195. Blood sugars are between 113 and 166. Pathology is pending from second EGD. He has been cleared for discharge from surgery. Plan is for either inpatient rehab or subacute rehab. Social work is working closely with the patient to make arrangements. We will plan to leave Zaragoza catheter in place and this can be removed at a different date at rehab. ROS Constitutional: Denies chills, Denies fever, reports dizziness, reports lightheadedness, endorses lethargy Denies poor appetite, endorses weakness, Denies weight loss Eyes: denies decreased vision, denies diplopia, denies discharge Ears: deny: decreased hearing Ears, nose, mouth and throat: Denies dental pain, Denies headache, Denies nasal discharge, Denies nose pain Cardiovascular: Denies chest pain, Denies decreased exercise tolerance, Denies edema, Denies high blood pressure, Denies irregular heart beat, Denies palpitations, Denies paroxysmal nocturnal dyspnea, Denies rapid heart beat, Denies shortness of breath Respiratory: Denies dyspnea, Denies home oxygen, Denies wheezing Gastrointestinal: Denies abdominal pain, Denies change in bowel habits, Denies coffee ground emesis, Denies early satiety, Denies excessive gas, Denies heartburn, Denies hematemesis, Denies hematochezia, Denies loss of appetite, Denies nausea, Denies vomiting, denies dark stools Genitourinary: Denies dysuria, Denies flank pain, Denies kidney stones, Denies menorrhagia, Denies urgency, Denies urinary frequency Musculoskeletal: Denies gait dysfunction, Denies limitation of motion, Denies morning stiffness, Denies muscle cramps Integumentary: Denies rash, Denies wounds, Denies brittle nails, Denies change in hair/nails, Denies darkening of skin Neurological: Denies balance difficulties, Denies change in speech, Denies double vision, Shirlene status improved, noted gait dysfunction, Denies loss of vision, Denies motor disturbance, Denies numbness, Denies paralysis, Denies paresthesias, Denies seizures Psychiatric: Reports anxiety, reports depression Endocrine: Denies excessive sweating, Denies excessive thirst, Denies high blood sugars, Denies palpitations Hematologic/Lymphatic: Denies easy bruising, Denies lymphadenopathy Physical exam - Constitutional General appearance: Awake, 61-year-old male, no acute distress noted - EENT Eyes: anicteric sclerae, PERRLA, normal appearance conjunctival injection ENT: hearing grossly normal - Neck Neck: no lymphadenopathy, normal ROM, no other, no rigidity, no stridor, no thyromegaly - Respiratory Respiratory: Decreased air entry with few Crackles improved wheezing - Cardiovascular Rhythm: Irregularly irregular Heart sounds: normal: S1, S2 Abnormal Heart Sounds: no systolic murmur, no diastolic murmur, no rub, no S3 Gallop, no S4 Gallop, no click, no other - Gastrointestinal General gastrointestinal: normal bowel sounds, soft nontender for some abdominal pain - Integumentary Integumentary: T, peripheral pulses 2+ with less than 2 second capillary refill - Neurologic patient is cooperative, does move all extremities - Musculoskeletal Musculoskeletal: Gait could not be assessed strength equal bilaterally, significant weakness - Psychiatric PsychiatriC Alert oriented 3 Assessment and plan #1 acute metabolic encephalopathy secondary to alcohol intoxication and hyponatremia and elevated ammonia levels. Improved Fall precautions. #2 acute alcohol intoxication with alcohol dependence with history of alcohol withdrawal including DTs alcohol withdrawal protocol initiated. Vitamin supplemented. CIWA protocol discontinued, patient started on Librium Librium changed to scheduled dosing. #3 acute suicidal thoughts. Psychiatry consult appreciated and patient started o n Zoloft will be increased and Remeron added and melatonin. #4 thrombocytopenia secondary to alcohol abuse and liver dysfunction continue to monitor hold anticoagulants #5 hyperosmolar hyponatremia secondary to alcohol nephrology consult appreciated. Continue po Lasix 40 mg every 12 hours. #6 acute hypoxic respiratory failure with evidence of aspiration pneumonia, acute diastolic heart failure. Continue I&O monitoring daily weights. Continue DuoNeb treatments #7 acute COPD exacerbation. Continue DuoNeb's as needed for shortness of breath. Sputum culture ordered. Pulmonary consult appreciated #8 microscopic bleed per rectum positive fecal occult hemoglobin stable continue monitor CBC may be related to gastritis secondary to alcohol abuse, Protonix 40 twice daily, repeat CBC this afternoon. #9 polysubstance abuse urine drug screen positive for meth and THC. Continue to monitor vitals. EKG negative for any ST or T-wave changes #10 acute kidney injury secondary to AtN. #11 acute A. fib with RVR, chronic persistent. Continue Cardizem CD 120 mg daily. Lopressor 12.5 mg twice daily. #10 acute GI bleed secondary to gastric ulcerations, duodenal ulceration status post blood transfusion of total of 4 units packed RBCs, status post EGD on 07/06 and 07/10 . Continue Carafate 1 g 3 times daily, Protonix 40 mg IV push twice daily. #11 Recurrent depression and generalized anxiety disorder. Increase zoloft to 100 mg daily and add remeron 15 mg at hs. 12. Run of nonsustained vtach. Continue to monitor. code status full code DVT. DISCHARG PLAN Subacute rehab or inpatient rehab Impression and plan of care have been directed as dictated by the signing physician. Leticia Sweet nurse practitioner acting as scribe for signing physician. Objective - Vital Signs Vital signs: Vital Signs Temp 97.9 F 07/13/21 03:46 Pulse 76 07/13/21 08:30 Resp 18 07/13/21 03:46 BP 112/71 07/13/21 04:06 Pulse Ox 97 07/13/21 03:46 Intake & Output 07/12/21 07/13/21 07/13/21 18:59 06:59 18:59 Output Total 515 Balance -515 Output: Urine 515 Other: Voiding Method Indwelling Catheter Indwelling Catheter # Voids 750 - Labs CBC & Chem 7: 07/13/21 08:31 07/12/21 03:25 Labs: Abnormal Lab Results - Last 24 Hours (Table) 07/12/21 07/12/21 07/12/21 Range/Units 03:25 16:09 20:19 RBC (4.30-5.90) m/uL Hgb (13.0-17.5) gm/dL Hct (39.0-53.0) % MCV (80.0-100.0) fL MCHC (31.0-37.0) g/dL RDW (11.5-15.5) % Macrocytosis Carbon Dioxide 31.8 H (20.0-27.5) mmol/L Anion Gap 9.20 L (10.00-18.00) mmol/L POC Glucose (mg/dL) 124 H 117 H (75-99) mg/dL Calcium 8.5 L (8.7-10.3) mg/dL 07/13/21 07/13/21 Range/Units 07:09 08:31 RBC 2.65 L (4.30-5.90) m/uL Hgb 8.3 L (13.0-17.5) gm/dL Hct 28.5 L (39.0-53.0) % MCV 107.4 H (80.0-100.0) fL MCHC 29.3 L (31.0-37.0) g/dL RDW 18.6 H (11.5-15.5) % Macrocytosis Marked A Carbon Dioxide (20.0-27.5) mmol/L Anion Gap (10.00-18.00) mmol/L POC Glucose (mg/dL) 113 H (75-99) mg/dL Calcium (8.7-10.3) mg/dL
--- NOTE | 2021-07-13 13:54 | P.DS ---
Providers Date of admission: 06/26/21 14:18 Expected date of discharge: 07/14/21 Attending physician: Lashawn Melgar MD Consults: 06/26/21 14:16 Consult Physician Routine Consulting Provider: Ken Cabral Consult Reason/Comments: COPD exacerbation Do you want consulting provider notified?: Yes 06/26/21 14:43 Consult Physician Routine Consulting Provider: Lauri Cardozo Consult Reason/Comments: ANEL, hyponatremia Do you want consulting provider notified?: Yes Consult Physician Routine Consulting Provider: Bienvenido Pacheco Consult Reason/Comments: suicidal ideation Do you want consulting provider notified?: Yes 07/04/21 14:29 Consult Physician Routine Consulting Provider: Lauren Reyes Consult Reason/Comments: GI bleed, hgb 4.3 Do you want consulting provider notified?: Yes 07/05/21 10:11 Consult Physician Routine Consulting Provider: Vonda Farooq Consult Reason/Comments: anemia Do you want consulting provider notified?: Yes 07/10/21 13:38 Consult Physician Routine Consulting Provider: Panda Cevallos Consult Reason/Comments: IP rehab Do you want consulting provider notified?: Yes Primary care physician: [facility] Course: 61 year old male with history of hypertension, atrial fibrillation, atrial flutter, alcohol abuse, COPD who has been seen multiple times in the ER for alcohol intoxication and suicidal ideation in the past was brought in by EMS as his roommate found him unresponsive. Patient drinks daily half a gallon. Patient evaluated in the ER. He would wake up intermittently say a few words and go back to sleep. Patient appears trunk, sees he wants to and appears that he is seeing things in the room as he is pointing at lopes. Patient is unable to maintain eye contact as he drifts into sleep. She received breathing treatment on his way to the hospital and also endorses before he came to the hospital. He received another nebulizing treatment before I evaluated him. Patient continues to wheeze significantly on evaluation. He denies any cough or shortness of breath or chest pain. Patient was afebrile tachycardic at 106, respiratory rate of 15 blood pressure 107/78 oxygen saturation 89% on room air improved to 97% on 2 L. EKG was obtained showed A. fib with rapid response of response at 120 CT of the brain was negative for any acute abnormality does have acute mastoiditis. Chest x-ray suggestive of mild congestive heart failure. Labs are reviewed patient has a WBC of 4.2 hemoglobin 12.7 sodium 118 chloride 82 bicarb 22 BUN 37 creatinine is 0.03. Ammonia level is a 25 alcohol level 218Patient is alcohol intoxication with suicidal ideation. Sitter at bedside ordered. We will discontinue IV fluids as patient appears volume overloaded. Solu-Medrol was initiated at 60 IV every 6 with DuoNeb's with pulmonary consult. Sodium levels with the acetaminophen urine osmolality were ordered. Nephrology consulted for management of sodium. 06/27 patient evaluated bedside is alert and answer questions appropriately. Sitter at bedside. Patient is currently 84% on 3 L of oxygen. Repeat chest x- ray suggestive of right lower lid and a troponin airspace opacity along with left lower airspace opacity with developing infectious process with COPD changes 06/28 patient evaluated at bedside lying comfortably in bed. Patient denies any chest pain or shortness of breath. Vitals are stable patient continues from and hyponatremia with a repeat sodium 122 potassium 5.5 chloride 88 BUN 72 creatinine 1.56. Serum osmolarity continues to remain high 305 continue Lasix 40 IV twice a day. Solu-Medrol reduced to every 8 8 hours 60 mg. Nephrology recommendation appreciated 06/29: Repeat chest x-ray reveals cardiomegaly with right greater than left bilateral lower lung acute infiltrates and/or atelectasis with right-sided volume loss remain present. No significant change from yesterday. Patient is followed closely by nephrology with plan to continue IV Lasix encourage oral protein intake and repeat labs tomorrow. Patient has seen by psychiatry with expectation of some cognitive clearing so they can expand the psychiatric assessment. Patient is still quite confused unable to answer questions and follow commands. He has been afebrile, heart rate 88, blood pressure 106/59, pulse ox 97% on 4 L nasal cannula. Sodium 128, potassium 4.0, chloride 85, CO2 38, BUN 63 creatinine 1.32. Blood sugars are running between 100 4891. TSH 1.250. Urinalysis negative for infection. Sodium 38. 06/30: The patient is awake this morning. He knows where he is at. He states he normally drinks a fifth of liquor per day. He is able to verbalize that he would like to have it inhaler when he leaves the hospital. Patient is followed by pulmonary medicine Repeat chest x-ray reveals improved aeration at the left base. Continued extensive consolidation or atelectasis of the right lower lobe. Patient has been afebrile, heart rate 79, blood pressure 126/76, pulse ox 92% on 3 L. surveillance system monitor is atrial fibrillation with controlled rate. Repeat blood work reveals hemoglobin 9.7, platelet count 129. Sodium 132, potassium 3.1, chloride 89, CO2 39, BUN 60 and creatinine 1.03. Blood sugars are running between 172 and 222. Patient is having good urine output. 07/01: Patient's mental status is improving. He is able to answer questions appropriately. Patient has been afebrile, heart rate in the 80s to 100s, blood pressure 118/60, pulse ox 90% on 3 L nasal cannula. Capillary blood glucose running between 160 and 358. Levemir 10 units at bedtime added. Zaragoza catheter remains in place. Pull Socket Assembler recommended continuing IV Lasix encourage oral protein intake.. 07/02: Patient is verbalizing that he still not feeling well enough to go home today. He is awake alert and oriented 3. His mental status is significantly improved. His plan is to return to his current living situation and social work has been working with him on this. Patient apparently has an oxygen concentrator but does not use it. We will be making arrangements for home oxygen therapy. He is pulse oxing 97% on 3 L. Heart rate is running in the 100 and teens to 121. Blood pressure 114/51. He has been afebrile. Low-dose Lopressor will be added to Cardizem for rate control for atrial fibrillation. Patient has had no signs of bleeding, eliquis will be started. 07/03: Patient is having drop in blood pressure with lightheadedness. This morning blood pressure 1 was 78/42. We've ordered a fluid bolus of 250 ML's due to history of heart failure, hold Cardizem, Lasix, metoprolol. Noted the patient had been taken off Solu-Medrol on 07/01 by pulmonary medicine. Cortisone level be checked and patient will be started on Solu-Cortef 100 mg IV every 8 hours. Repeat blood work reveals sodium 132, potassium 4.1, chloride 87, CO2 38, BUN 100 and creatinine 1.13. Blood sugars are running between 117 and 155. No new plan from pulmonary medicine. Patient has been seen by psychiatry with recommendations to monitor for alcohol withdrawal with Ativan when necessary on CIWA protocol. Zoloft 50 mg daily was added and melatonin 5 mg at bedtime. 07/06: Over the weekend, patient developed GI bleed, eliquis was placed on hold and patient underwent EGD with Dr. Kaiser finding acute gastric ulcerations and bleeding, acute duodenal ulcerations with bleeding, acute severe erosive esophagitis from candidiasis, gastroesophageal reflux disease. Biopsies are pending. Patient was also seen by cardiology for A. fib with episode of RVR. Solu Cortef will be discontinued. Hemoglobin came back today at 6.5 and patient will be transfused 1 unit of packed RBCs. Echocardiogram reveals EF of 50-55%, mild mitral regurgitation, moderate to severe tricuspid regurgitation, severe pulmonary hypertension with RVSP 76.53 mmHg. Chest x-ray reveals suspected new small left effusion with slight worsening in patchy left basilar atelectasis and/or consolidation. Continued extensive right lower lobe consolidation. Follow-up to ensure clearance of this finding to exclude possibility of lobar collapse secondary to central obstructing lesion. Possible small right effusion. Patient is also followed by pulmonary medicine and nephrology. 07/07: Patient had increased confusion last evening dose of Ativan was given. He also had decreased blood pressure and a run of V. tach 14 beats that was self- limited. Patient is not eating very much because he is on a clear liquid diet and does not like it. He is requesting Ativan which is not required on the CIWA protocol at this point. Librium will be started,CIWA protocol will be discontinued. We'll increase Zoloft to 100 mg daily and add Remeron 15 mg at bedtime. Repeat blood work reveals WBC 10.1, hemoglobin 8.2. Sodium 131, potassium 3.8, chloride 92, CO2 37, BUN 73 creatinine 1.2. Blood sugars are running between 76 and 166. General surgery is planning to advance diet to full liquids. Cardiology has signed off this case. 07/08: Patient is seen today on the CSD unit. He had a small dark BM last pm, no bright red blood. He has been afebrile, HR 60, BP 105/63, PO 100% 3L n/c. He is currently advanced to regular diet and remains on fluid restriction of 1500 ml. He is followed by GI and general surgery and continued on Carafate and Protonix. Sodium 133, K 3.3 and was replaced, Chloride 89, CO2 39, BUN62 and Creat 1.38, BS 87. CBG 86-155. Lasix is on hold and he is on midodrine in enhance BP per nephrology. Cardiology has signed off his case. 07/09: Patient is afebrile, heart rate 65, blood pressure 90/54 217/67, pulse ox 96% on 2 L. Sugar this morning was in the 50s status post D50. Levemir will be discontinued. Patient had a dark stool, hemoglobin ordered. Hemoglobin this morning was 9.3. He denies abdominal pain. Patient required Zaragoza catheter placement yesterday for urinary retention. Blood pressure has been on the soft side and Cardizem CD changed to once daily dosing. Discussed discharge plan with the patient and he is now agreeable to go to subacute rehab. Social work is been updated. 07/10: Patient is complaining of abdominal pain and GI will do general surgery has requested that GI perform endoscopy and clipping, continue Protonix and Carafate. Repeat hemoglobin is 8.1. BUN 40 and creatinine 1.2. Patient is Zaragoza catheter for urinary retention, good urine output, Lasix is on hold per nephrology and continued on fluid restriction for hyponatremia. Patient is afebrile, heart rate 80, blood pressure 107/67, pulse ox 100% on 3 L nasal cannula. He monitors atrial fibrillation with controlled rate. Patient is reaching 500 only on incentive spirometry. Discharge planning for subacute rehab which will most likely occur on Tuesday. 07/11 patient examined at bedside. Due to ongoing black stools and patient underwent EGD yesterday. 1 cm clean-based duodenal ulcer with no active bleeding was noted with antral erosive gastritis. Labs reviewed patient's hemoglobin stable at 8.3 MCV 105, blood sugar is stable at 97-150. Patient is, answering questions appropriately. Patient is too weak to be discharged home at this point. Dr. Zuñiga consulted for inpatient rehab. Librium was reduced to 5 twice a day. No episode of acute bleeding noted. 07/12 patient examined bedside. No recent episode of dark stools. Labs reviewed, magnesium 2.1 sodium 139 potassium 4.8. No use CBC to evaluate today. Continue Librium at 5 twice daily. Patient's anxiety is controlled on current dose of Librium and Zoloft. 07/13: Patient denies having any bloody stools. No nausea or vomiting. Abdominal pain is improving. His stools have been brown in color. He is currently tolerating regular diet.Patient remains with Zaragoza in place due to urinary retention. He has been afebrile, heart rate 69, blood pressure 113/65. Repeat blood work reveals WBC 6, hemoglobin 8.3, platelet count 195. Blood sugars are between 113 and 166. Pathology is pending from second EGD. He has been cleared for discharge from surgery. Plan is for either inpatient rehab or subacute rehab. Social work is working closely with the patient to make arrangements. We will plan to leave Zaragoza catheter in place and this can be removed at a different date at rehab. 07/14: Patient denies any new complaints, no issues overnight. Nurse denies any issues. Patient is currently on oxygen at 3 L nasal cannula with pulse ox of 100%, heart rate has been in the 70s, afebrile, blood pressure 123/77. Insurance has denied IP rehab. Discussed in detail options for discharge. Social work will work on subacute rehab today. DISCHARGE DIAGNOSES #1 acute metabolic encephalopathy secondary to alcohol intoxication and hyponatremia and elevated ammonia levels. #2 acute alcohol intoxication with alcohol dependence with history of alcohol withdrawal including DTs. #3 acute suicidal thoughts, recurrent depression. #4 thrombocytopenia secondary to alcohol abuse and liver dysfunction. #5 hyperosmolar hyponatremia secondary to alcohol. #6 acute hypoxic respiratory failure with evidence of aspiration pneumonia, acute diastolic heart failure. . #7 acute COPD exacerbation. . #8 microscopic bleed per rectum. #9 polysubstance abuse, urine drug screen positive for meth and THC. #10 acute kidney injury secondary to AtN. #11 acute A. fib with RVR, chronic persistent. #10 acute GI bleed and acute blood loss anemia secondary to gastric ulcerations, duodenal ulceration status post blood transfusion of total of 4 units packed RBCs, status post EGD on 07/06 and 07/10 . #11 Recurrent depression and generalized anxiety disorder. 12. Run of nonsustained vtach. DISCHARG PLAN Subacute rehab or inpatient rehab Greater than 35 minutes was utilized and coordinating patient's discharge. Impression and plan of care have been directed as dictated by the signing physician. Leticia Sweet nurse practitioner acting as scribe for signing physician. Patient Condition at Discharge: Good Plan - Discharge Summary Discharge Rx Participant: No New Discharge Prescriptions: New Ipratropium-Albuterol Nebulize [Duoneb 0.5 mg-3 mg/3 ml Soln] 3 ml INHALATION RT-QID PRN ml PRN Reason: Shortness Of Breath Midodrine [ProAmatine] 5 mg PO AC-TID #90 tab Mirtazapine [Remeron] 15 mg PO HS #30 tab Sucralfate [Carafate] 1 gm PO AC-TID #90 tab Diltiazem Cd [Cardizem CD] 120 mg PO DAILY #30 Nicotine 21Mg/24Hr Patch [Habitrol] 1 patch TRANSDERM DAILY #30 patch Metoprolol Tartrate [Lopressor] 12.5 mg PO BID #60 tab Pantoprazole [Protonix] 40 mg PO BID #60 tab Acetaminophen Tab [Tylenol] 650 mg PO Q6HR PRN tab PRN Reason: Fever And/ Or Pain Sertraline [Zoloft] 100 mg PO DAILY #30 tab Discharge Medication List Acetaminophen Tab [Tylenol] 650 mg PO Q6HR PRN tab 07/13/21 [Rx] Diltiazem Cd [Cardizem CD] 120 mg PO DAILY #30 07/13/21 [Rx] Ipratropium-Albuterol Nebulize [Duoneb 0.5 mg-3 mg/3 ml Soln] 3 ml INHALATION RT-QID PRN ml 07/13/21 [Rx] Metoprolol Tartrate [Lopressor] 12.5 mg PO BID #60 tab 07/13/21 [Rx] Midodrine [ProAmatine] 5 mg PO AC-TID #90 tab 07/13/21 [Rx] Mirtazapine [Remeron] 15 mg PO HS #30 tab 07/13/21 [Rx] Nicotine 21Mg/24Hr Patch [Habitrol] 1 patch TRANSDERM DAILY #30 patch 07/13/21 [Rx] Pantoprazole [Protonix] 40 mg PO BID #60 tab 07/13/21 [Rx] Sertraline [Zoloft] 100 mg PO DAILY #30 tab 07/13/21 [Rx] Sucralfate [Carafate] 1 gm PO AC-TID #90 tab 07/13/21 [Rx] Follow up Appointment(s)/Referral(s): Benitez Min MD [STAFF PHYSICIAN] - 1 Week (office will call patient with date and time of appointment ) [facility] [NON-STAFF] - Janey Wallace NPC [Primary Care Provider] - 1 Week (After discharge from rehab) Activity/Diet/Wound Care/Special Instructions: Patient will require 3L O2 due to COPD. Discharge Disposition: TRANSFER TO SNF/ECF
--- NOTE | 2021-07-13 14:15 | P.PN ---
Subjective Principal diagnosis: Patient is seen for follow-up for acute kidney injury. He also had hyponatremia which has improved. Patient has of Zaragoza catheter which was replaced due to urine retention. Creatinine 1.2 on 07/12/2021 Objective - Vital Signs Vital signs: Vital Signs Temp 97.4 F L 07/13/21 09:16 Pulse 68 07/13/21 12:56 Resp 18 07/13/21 09:16 BP 113/65 07/13/21 09:16 Pulse Ox 100 07/13/21 09:16 Intake & Output 07/12/21 07/13/21 07/13/21 18:59 06:59 18:59 Output Total 515 Balance -515 Output: Urine 515 Other: Voiding Method Indwelling Catheter Indwelling Catheter Indwelling Catheter # Voids 750 - Exam On examination patient is comfortable awake is not in any acute distress. Mildly short of breath. Examination of the heart S1 and S2 examination lungs decreased breath sounds at the bases Examination lower extremities shows no significant edema bilaterally MINERALOGY TEACHER exam shows patient is moving all 4 extremities - Labs CBC & Chem 7: 07/13/21 08:31 07/12/21 03:25 Labs: Abnormal Lab Results - Last 24 Hours (Table) 07/12/21 07/12/21 07/13/21 Range/Units 16:09 20:19 07:09 RBC (4.30-5.90) m/uL Hgb (13.0-17.5) gm/dL Hct (39.0-53.0) % MCV (80.0-100.0) fL MCHC (31.0-37.0) g/dL RDW (11.5-15.5) % Macrocytosis POC Glucose (mg/dL) 124 H 117 H 113 H (75-99) mg/dL 07/13/21 07/13/21 Range/Units 08:31 11:54 RBC 2.65 L (4.30-5.90) m/uL Hgb 8.3 L (13.0-17.5) gm/dL Hct 28.5 L (39.0-53.0) % MCV 107.4 H (80.0-100.0) fL MCHC 29.3 L (31.0-37.0) g/dL RDW 18.6 H (11.5-15.5) % Macrocytosis Marked A POC Glucose (mg/dL) 166 H (75-99) mg/dL Assessment and Plan Assessment: 1. Hyponatremia, hyperosmolar associated with high ETOH levels as well as hypervolemic hyponatremia. Status post diuresis 2. Acute kidney injury secondary to hemodynamic ATN with low blood pressures. Baseline creatinine around 1.0., Currently improved 3. Volume overload currently status post IV Lasix. 4. ETOH abuse 5. Suicidal ideation with history of depression, evaluated by psych. 6. Metabolic alkalosis secondary to diuresis 7. GI bleed status post IV DDAVP Renetta was on hold. EGD showed bleeding duodenal and gastric ulceration. Plan: Continue to encourage increase oral intake. Continue with Midodrine
[2021-07-13 16:46] LABS: Glucose,Whole Blood 110 mg/dL (75-99)
[2021-07-13 20:12] LABS: Glucose,Whole Blood 133 mg/dL (75-99)
[2021-07-13] MEDS: LACTATED RINGERS 1,000 ML IV SCH (20:12)
[2021-07-13] MEDS: MIRTAZAPINE 15 MG TAB PO SCH (22:16)
[2021-07-14] MEDS: ACETAMINOPHEN TAB 325 MG TAB PO PRN ×4 (04:09→23:10)
[2021-07-14 07:10] LABS: Glucose,Whole Blood 119 mg/dL (75-99)
[2021-07-14] MEDS: INSULIN ASPART (NovoLOG) 100 UNIT/ML VIAL SQ SCH ×4 (07:23→20:42)
[2021-07-14] MEDS: SUCRALFATE 1 GM TAB PO SCH ×3 (07:40→17:04)
[2021-07-14] MEDS: MIDODRINE 5 MG TAB PO SCH ×3 (07:41→17:04)
[2021-07-14] MEDS: IPRATROPIUM-ALBUTEROL 3 ML NEB INHALATION SCH ×4 (08:29→18:59)
[2021-07-14] MEDS: chlordiazePOXIDE 5 MG CAPSULE PO SCH ×2 (09:21→20:41)
[2021-07-14] MEDS: DILTIAZEM CD 120 MG CAP.ER.24H PO SCH (09:21)
[2021-07-14] MEDS: NICOTINE 21MG/24HR PATCH TRANSDERM SCH (09:21)
[2021-07-14] MEDS: SERTRALINE 100 MG TAB PO SCH (09:21)
[2021-07-14] MEDS: NYSTATIN 100,000 UNIT/ML SUSP 500,000 UNIT/5 ML CUP PO SCH ×4 (09:22→20:42)
[2021-07-14] MEDS: METOPROLOL TARTRATE 12.5 MG TAB PO SCH ×2 (09:22→20:41)
[2021-07-14] MEDS: PANTOPRAZOLE 40 MG/10 ML VIAL IVP SCH ×2 (09:22→20:41)
[2021-07-14 12:12] LABS: Glucose,Whole Blood 116 mg/dL (75-99)
--- NOTE | 2021-07-14 15:25 | P.PN ---
Subjective Principal diagnosis: Patient is seen for follow-up for acute kidney injury. He also had hyponatremia which has improved. Patient has of Zaragoza catheter which was replaced due to urine retention. Creatinine 1.2 on 07/12/2021 Objective - Vital Signs Vital signs: Vital Signs Temp 98.7 F 07/14/21 14:45 Pulse 79 07/14/21 14:45 Resp 16 07/14/21 08:20 BP 97/58 07/14/21 14:45 Pulse Ox 100 07/14/21 14:45 Intake & Output 07/13/21 07/14/21 07/14/21 18:59 06:59 18:59 Output Total 1250 Balance -1250 Output: Urine 1250 Other: Voiding Method Indwelling Catheter Indwelling Catheter Indwelling Catheter - Exam On examination patient is comfortable awake is not in any acute distress. Examination of the heart S1 and S2 examination lungs decreased breath sounds at the bases Examination lower extremities shows 1+edema SHIPPING AND RECEIVING SPECIALIST exam shows patient is moving all 4 extremities - Labs CBC & Chem 7: 07/13/21 08:31 07/12/21 03:25 Labs: Abnormal Lab Results - Last 24 Hours (Table) 07/13/21 07/13/21 07/14/21 Range/Units 16:46 20:09 07:09 POC Glucose (mg/dL) 110 H 133 H 119 H (75-99) mg/dL 07/14/21 Range/Units 12:10 POC Glucose (mg/dL) 116 H (75-99) mg/dL Assessment and Plan Assessment: 1. Hyponatremia, hyperosmolar associated with high ETOH levels as well as hypervolemic hyponatremia. Status post diuresis 2. Acute kidney injury secondary to hemodynamic ATN with low blood pressures. Baseline creatinine around 1.0., Currently improved 3. Volume overload currently status post IV Lasix. 4. ETOH abuse 5. Suicidal ideation with history of depression, evaluated by psych. 6. Metabolic alkalosis secondary to diuresis 7. GI bleed status post IV DDAVP [place] was on hold. EGD showed bleeding duodenal and gastric ulceration. Plan: Continue to encourage increase oral intake. Continue with Midodrine Add low-dose loop diuretics
[2021-07-14] MEDS: BACLOFEN 10 MG TAB PO PRN ×2 (15:48→20:42)
[2021-07-14 16:44] LABS: Glucose,Whole Blood 114 mg/dL (75-99)
[2021-07-14] MEDS: MIRTAZAPINE 15 MG TAB PO SCH (20:41)
[2021-07-14 20:46] LABS: Glucose,Whole Blood 85 mg/dL (75-99)
[2021-07-14] MEDS: ONDANSETRON 4 MG/2 ML VIAL IVP PRN (20:52)
[2021-07-15] MEDS: LACTATED RINGERS 1,000 ML IV SCH (00:03)
[2021-07-15 02:41] LABS: Glucose,Whole Blood 217 mg/dL (75-99)
[2021-07-15] MEDS: BACLOFEN 10 MG TAB PO PRN (03:39)
[2021-07-15] MEDS: ONDANSETRON 4 MG/2 ML VIAL IVP PRN (03:44)
[2021-07-15] MEDS: INSULIN ASPART (NovoLOG) 100 UNIT/ML VIAL SQ SCH ×4 (07:22→21:51)
[2021-07-15] MEDS: MIDODRINE 5 MG TAB PO SCH ×3 (07:23→17:03)
[2021-07-15 07:32] LABS: Glucose,Whole Blood 119 mg/dL (75-99)
[2021-07-15] MEDS: SUCRALFATE 1 GM TAB PO SCH ×3 (07:32→17:03)
[2021-07-15] MEDS: IPRATROPIUM-ALBUTEROL 3 ML NEB INHALATION SCH ×4 (08:31→20:32)
[2021-07-15] MEDS: NYSTATIN 100,000 UNIT/ML SUSP 500,000 UNIT/5 ML CUP PO SCH ×4 (09:36→21:52)
[2021-07-15] MEDS: chlordiazePOXIDE 5 MG CAPSULE PO SCH ×2 (09:36→21:51)
[2021-07-15] MEDS: FUROSEMIDE 20 MG TAB PO SCH (09:37)
[2021-07-15] MEDS: NICOTINE 21MG/24HR PATCH TRANSDERM SCH (09:37)
[2021-07-15] MEDS: METOPROLOL TARTRATE 12.5 MG TAB PO SCH ×2 (09:37→21:51)
[2021-07-15] MEDS: PANTOPRAZOLE 40 MG/10 ML VIAL IVP SCH ×2 (09:37→21:51)
[2021-07-15] MEDS: DILTIAZEM CD 120 MG CAP.ER.24H PO SCH (09:37)
[2021-07-15] MEDS: SERTRALINE 100 MG TAB PO SCH (09:37)
--- NOTE | 2021-07-15 09:53 | P.PN ---
Subjective Progress Note Date: 07/14/21 61 year old male with history of hypertension, atrial fibrillation, atrial flutter, alcohol abuse, COPD who has been seen multiple times in the ER for alcohol intoxication and suicidal ideation in the past was brought in by EMS as his roommate found him unresponsive. Patient drinks daily half a gallon. Patient evaluated in the ER. He would wake up intermittently say a few words and go back to sleep. Patient appears trunk, sees he wants to and appears that he is seeing things in the room as he is pointing at lopes. Patient is unable to maintain eye contact as he drifts into sleep. She received breathing treatment on his way to the hospital and also endorses before he came to the hospital. He received another nebulizing treatment before I evaluated him. Patient continues to wheeze significantly on evaluation. He denies any cough or shortness of breath or chest pain. Patient was afebrile tachycardic at 106, respiratory rate of 15 blood pressure 107/78 oxygen saturation 89% on room air improved to 97% on 2 L. EKG was obtained showed A. fib with rapid response of response at 120 CT of the brain was negative for any acute abnormality does have acute mastoiditis. Chest x-ray suggestive of mild congestive heart failure. Labs are reviewed patient has a WBC of 4.2 hemoglobin 12.7 sodium 118 chloride 82 bicarb 22 BUN 37 creatinine is 0.03. Ammonia level is a 25 alcohol level 218Patient is alcohol intoxication with suicidal ideation. Sitter at bedside ordered. We will discontinue IV fluids as patient appears volume overloaded. Solu-Medrol was initiated at 60 IV every 6 with DuoNeb's with pulmonary consult. Sodium levels with the acetaminophen urine osmolality were ordered. Nephrology consulted for management of sodium. 06/27 patient evaluated bedside is alert and answer questions appropriately. Sitter at bedside. Patient is currently 84% on 3 L of oxygen. Repeat chest x- ray suggestive of right lower lid and a troponin airspace opacity along with le ft lower airspace opacity with developing infectious process with COPD changes 06/28 patient evaluated at bedside lying comfortably in bed. Patient denies any chest pain or shortness of breath. Vitals are stable patient continues from and hyponatremia with a repeat sodium 122 potassium 5.5 chloride 88 BUN 72 creatinine 1.56. Serum osmolarity continues to remain high 305 continue Lasix 40 IV twice a day. Solu-Medrol reduced to every 8 8 hours 60 mg. Nephrology recommendation appreciated 06/29: Repeat chest x-ray reveals cardiomegaly with right greater than left bilateral lower lung acute infiltrates and/or atelectasis with right-sided volume loss remain present. No significant change from yesterday. Patient is followed closely by nephrology with plan to continue IV Lasix encourage oral protein intake and repeat labs tomorrow. Patient has seen by psychiatry with expectation of some cognitive clearing so they can expand the psychiatric assessment. Patient is still quite confused unable to answer questions and follow commands. He has been afebrile, heart rate 88, blood pressure 106/59, pulse ox 97% on 4 L nasal cannula. Sodium 128, potassium 4.0, chloride 85, CO2 38, BUN 63 creatinine 1.32. Blood sugars are running between 100 4891. TSH 1.250. Urinalysis negative for infection. Sodium 38. 06/30: The patient is awake this morning. He knows where he is at. He states he normally drinks a fifth of liquor per day. He is able to verbalize that he would like to have it inhaler when he leaves the hospital. Patient is followed by pulmonary medicine Repeat chest x-ray reveals improved aeration at the left base. Continued extensive consolidation or atelectasis of the right lower lobe. Patient has been afebrile, heart rate 79, blood pressure 126/76, pulse ox 92% on 3 L. group director is atrial fibrillation with controlled rate. Repeat blood work reveals hemoglobin 9.7, platelet count 129. Sodium 132, potassium 3.1, chloride 89, CO2 39, BUN 60 and creatinine 1.03. Blood sugars are running between 172 and 222. Patient is having good urine output. 07/01: Patient's mental status is improving. He is able to answer questions appropriately. Patient has been afebrile, heart rate in the 80s to 100s, blood pressure 118/60, pulse ox 90% on 3 L nasal cannula. Capillary blood glucose running between 160 and 358. Levemir 10 units at bedtime added. Zaragoza catheter remains in place. Economic Analyst recommended continuing IV Lasix encourage oral protein intake.. 07/02: Patient is verbalizing that he still not feeling well enough to go home today. He is awake alert and oriented 3. His mental status is significantly improved. His plan is to return to his current living situation and social work has been working with him on this. Patient apparently has an oxygen concentrator but does not use it. We will be making arrangements for home oxygen therapy. He is pulse oxing 97% on 3 L. Heart rate is running in the 100 and teens to 121. Blood pressure 114/51. He has been afebrile. Low-dose Lopressor will be added to Cardizem for rate control for atrial fibrillation. Patient has had no signs of bleeding, eliquis will be started. 07/03: Patient is having drop in blood pressure with lightheadedness. This morning blood pressure 1 was 78/42. We've ordered a fluid bolus of 250 ML's due to history of heart failure, hold Cardizem, Lasix, metoprolol. Noted the patient had been taken off Solu-Medrol on 07/01 by pulmonary medicine. Cortisone level be checked and patient will be started on Solu-Cortef 100 mg IV every 8 hours. Repeat blood work reveals sodium 132, potassium 4.1, chloride 87, CO2 38, BUN 100 and creatinine 1.13. Blood sugars are running between 117 and 155. No new plan from pulmonary medicine. Patient has been seen by psychiatry with recommendations to monitor for alcohol withdrawal with Ativan when necessary on [facility] protocol. Zoloft 50 mg daily was added and melatonin 5 mg at bedtime. 07/06: Over the weekend, patient developed GI bleed, eliquis was placed on hold and patient underwent EGD with Dr. Kaiesr finding acute gastric ulcerations and bleeding, acute duodenal ulcerations with bleeding, acute severe erosive esophagitis from candidiasis, gastroesophageal reflux disease. Biopsies are pending. Patient was also seen by cardiology for A. fib with episode of RVR. Solu Cortef will be discontinued. Hemoglobin came back today at 6.5 and patient will be transfused 1 unit of packed RBCs. Echocardiogram reveals EF of 50-55%, mild mitral regurgitation, moderate to severe tricuspid regurgitation, severe pulmonary hypertension with RVSP 76.53 mmHg. Chest x-ray reveals suspected new small left effusion with slight worsening in patchy left basilar atelectasis and/or consolidation. Continued extensive right lower lobe consolidation. Follow-up to ensure clearance of this finding to exclude possibility of lobar collapse secondary to central obstructing lesion. Possible small right effusion. Patient is also followed by pulmonary medicine and nephrology. 2: Patient had increased confusion last evening dose of Ativan was given. He also had decreased blood pressure and a run of V. tach 14 beats that was self- limited. Patient is not eating very much because he is on a clear liquid diet and does not like it. He is requesting Ativan which is not required on the CIWA protocol at this point. Librium will be started,CIWA protocol will be discontinued. We'll increase Zoloft to 100 mg daily and add Remeron 15 mg at bedtime. Repeat blood work reveals WBC 10.1, hemoglobin 8.2. Sodium 131, potassium 3.8, chloride 92, CO2 37, BUN 73 creatinine 1.2. Blood sugars are running between 76 and 166. General surgery is planning to advance diet to full liquids. Cardiology has signed off this case. 07/08: Patient is seen today on the [facility] unit. He had a small dark BM last pm, no bright red blood. He has been afebrile, HR 60, BP 105/63, PO 100% 3L n/c. He is currently advanced to regular diet and remains on fluid restriction of 1500 ml. He is followed by GI and general surgery and continued on Carafate and Protonix. Sodium 133, K 3.3 and was replaced, Chloride 89, CO2 39, BUN62 and Creat 1.38, BS 87. CBG 86-155. Lasix is on hold and he is on midodrine in enhance BP per nephrology. Cardiology has signed off his case. 07/09: Patient is afebrile, heart rate 65, blood pressure 90/54 217/67, pulse ox 96% on 2 L. Sugar this morning was in the 50s status post D50. Levemir will be discontinued. Patient had a dark stool, hemoglobin ordered. Hemoglobin this morning was 9.3. He denies abdominal pain. Patient required Zaragoza catheter placement yesterday for urinary retention. Blood pressure has been on the soft side and Cardizem CD changed to once daily dosing. Discussed discharge plan wi th the patient and he is now agreeable to go to subacute rehab. Social work is been updated. 07/10: Patient is complaining of abdominal pain and GI will do general surgery has requested that GI perform endoscopy and clipping, continue Protonix and Carafate. Repeat hemoglobin is 8.1. BUN 40 and creatinine 1.2. Patient is Zaragoza catheter for urinary retention, good urine output, Lasix is on hold per nephrology and continued on fluid restriction for hyponatremia. Patient is afebrile, heart rate 80, blood pressure 107/67, pulse ox 100% on 3 L nasal cannula. He monitors atrial fibrillation with controlled rate. Patient is reaching 500 only on incentive spirometry. Discharge planning for subacute rehab which will most likely occur on Tuesday. 07/11 patient examined at bedside. Due to ongoing black stools and patient underwent EGD yesterday. 1 cm clean-based duodenal ulcer with no active bleeding was noted with antral erosive gastritis. Labs reviewed patient's hemoglobin stable at 8.3 MCV 105, blood sugar is stable at 97-150. Patient is, answering questions appropriately. Patient is too weak to be discharged home at this point. Dr. Zuñiga consulted for inpatient rehab. Librium was reduced to 5 twice a day. No episode of acute bleeding noted. 07/12 patient examined bedside. No recent episode of dark stools. Labs reviewed, magnesium 2.1 sodium 139 potassium 4.8. No use CBC to evaluate today. Continue Librium at 5 twice daily. Patient's anxiety is controlled on current dose of Librium and Zoloft. 07/13: Patient denies having any bloody stools. No nausea or vomiting. Abdominal pain is improving. His stools have been brown in color. He is currently tolerating regular diet.Patient remains with Zaragoza in place due to urinary retention. He has been afebrile, heart rate 69, blood pressure 113/65. Repeat blood work reveals WBC 6, hemoglobin 8.3, platelet count 195. Blood sugars are between 113 and 166. Pathology is pending from second EGD. He has been cleared for discharge from surgery. Plan is for either inpatient rehab or subacute rehab. Social work is working closely with the patient to make arrangements. We will plan to leave Zaragoza catheter in place and this can be removed at a different date at rehab. 07/14: Patient denies any new complaints, no issues overnight. Nurse denies any issues. Patient is currently on oxygen at 3 L nasal cannula with pulse ox of 100%, heart rate has been in the 70s, afebrile, blood pressure 123/77. Insurance has denied IP rehab. Discussed in detail options for discharge. Social work will work on subacute rehab today. ROS Constitutional: Denies chills, Denies fever, reports dizziness, reports lightheadedness, endorses lethargy Denies poor appetite, endorses weakness, Denies weight loss Eyes: denies decreased vision, denies diplopia, denies discharge Ears: deny: decreased hearing Ears, nose, mouth and throat: Denies dental pain, Denies headache, Denies nasal discharge, Denies nose pain Cardiovascular: Denies chest pain, Denies decreased exercise tolerance, Denies edema, Denies high blood pressure, Denies irregular heart beat, Denies palpitations, Denies paroxysmal nocturnal dyspnea, Denies rapid heart beat, Denies shortness of breath Respiratory: Denies dyspnea, Denies home oxygen, Denies wheezing Gastrointestinal: Denies abdominal pain, Denies change in bowel habits, Denies coffee ground emesis, Denies early satiety, Denies excessive gas, Denies heartburn, Denies hematemesis, Denies hematochezia, Denies loss of appetite, Denies nausea, Denies vomiting, denies dark stools Genitourinary: Denies dysuria, Denies flank pain, Denies kidney stones, Denies menorrhagia, Denies urgency, Denies urinary frequency Musculoskeletal: Denies gait dysfunction, Denies limitation of motion, Denies morning stiffness, Denies muscle cramps Integumentary: Denies rash, Denies wounds, Denies brittle nails, Denies change in hair/nails, Denies darkening of skin Neurological: Denies balance difficulties, Denies change in speech, Denies double vision, Shirlene status improved, noted gait dysfunction, Denies loss of vision, Denies motor disturbance, Denies numbness, Denies paralysis, Denies paresthesias, Denies seizures Psychiatric: Reports anxiety, reports depression Endocrine: Denies excessive sweating, Denies excessive thirst, Denies high blood sugars, Denies palpitations Hematologic/Lymphatic: Denies easy bruising, Denies lymphadenopathy Physical exam - Constitutional General appearance: Awake, 61-year-old male, no acute distress noted - EENT Eyes: anicteric sclerae, PERRLA, normal appearance conjunctival injection ENT: hearing grossly normal - Neck Neck: no lymphadenopathy, normal ROM, no other, no rigidity, no stridor, no thyromegaly - Respiratory Respiratory: Decreased air entry with few Crackles improved wheezing - Cardiovascular Rhythm: Irregularly irregular Heart sounds: normal: S1, S2 Abnormal Heart Sounds: no systolic murmur, no diastolic murmur, no rub, no S3 Gallop, no S4 Gallop, no click, no other - Gastrointestinal General gastrointestinal: normal bowel sounds, soft nontender - Integumentary Integumentary: T, peripheral pulses 2+ with less than 2 second capillary refill - Neurologic patient is cooperative, does move all extremities - Musculoskeletal Musculoskeletal: Gait could not be assessed strength equal bilaterally, significant weakness - Psychiatric PsychiatriC Alert oriented 3 Assessment and plan #1 acute metabolic encephalopathy secondary to alcohol intoxication and hyponatremia and elevated ammonia levels. Improved Fall precautions. #2 acute alcohol intoxication with alcohol dependence with history of alcohol withdrawal including DTs alcohol withdrawal protocol initiated. Vitamin supplemented. CIWA protocol discontinued, patient started on Librium Librium changed to scheduled dosing. #3 acute suicidal thoughts. Psychiatry consult appreciated and patient started on Zoloft will be increased and Remeron added and melatonin. #4 thrombocytopenia secondary to alcohol abuse and liver dysfunction continue to monitor hold anticoagulants #5 hyperosmolar hyponatremia secondary to alcohol nephrology consult appreciated. Continue po Lasix 40 mg every 12 hours. #6 acute hypoxic respiratory failure with evidence of aspiration pneumonia, acute diastolic heart failure. Continue I&O monitoring daily weights. Continue DuoNeb treatments #7 acute COPD exacerbation. Continue DuoNeb's as needed for shortness of breath. Sputum culture ordered. Pulmonary consult appreciated #8 microscopic bleed per rectum positive fecal occult hemoglobin stable continue monitor CBC may be related to gastritis secondary to alcohol abuse, Protonix 40 twice daily, repeat CBC this afternoon. #9 polysubstance abuse urine drug screen positive for meth and THC. Continue to monitor vitals. EKG negative for any ST or T-wave changes #10 acute kidney injury secondary to AtN. #11 acute A. fib with RVR, chronic persistent. Continue Cardizem CD 120 mg daily. Lopressor 12.5 mg twice daily. #10 acute GI bleed secondary to gastric ulcerations, duodenal ulceration status post blood transfusion of total of 4 units packed RBCs, status post EGD on 07/06 and 07/10 . Continue Carafate 1 g 3 times daily, Protonix 40 mg IV push twice daily. #11 Recurrent depression and generalized anxiety disorder. Increase zoloft to 100 mg daily and add remeron 15 mg at hs. 12. Run of nonsustained vtach. Continue to monitor. code status full code DVT. DISCHARG PLAN Subacute rehab or inpatient rehab Impression and plan of care have been directed as dictated by the signing physician. Leticia Sweet nurse practitioner acting as scribe for signing physician. Objective - Vital Signs Vital signs: Vital Signs Temp 98.3 F 07/15/21 08:10 Pulse 88 07/15/21 08:10 Resp 17 07/15/21 08:10 BP 112/71 07/15/21 08:10 Pulse Ox 100 07/15/21 08:10 Intake & Output 07/14/21 07/15/21 07/15/21 18:59 06:59 18:59 Intake Total 500 240 Output Total 900 1100 Balance -400 -1100 240 Intake: Oral 500 240 Output: Urine 900 1100 Other: Voiding Method Indwelling Catheter Indwelling Catheter Indwelling Catheter # Bowel Movements 0 - Labs CBC & Chem 7: 07/13/21 08:31 07/12/21 03:25 Labs: Abnormal Lab Results - Last 24 Hours (Table) 07/14/21 07/14/21 07/15/21 Range/Units 12:10 16:43 02:39 POC Glucose (mg/dL) 116 H 114 H 217 H (75-99) mg/dL 07/15/21 Range/Units 07:17 POC Glucose (mg/dL) 119 H (75-99) mg/dL
[2021-07-15 11:21] LABS: Glucose,Whole Blood 124 mg/dL (75-99)
[2021-07-15] MEDS ORDERED: FUROSEMIDE 10 MG/ML 4 ML VIAL IV STA (12:12)
--- NOTE | 2021-07-15 12:12 | P.PN ---
Subjective Principal diagnosis: Patient is seen for follow-up for acute kidney injury. He also had hyponatremia which has improved. Patient has of Zaragoza catheter which was replaced due to urine retention. Creatinine 1.2 on 07/12/2021 Complaining of mild shortness of breath today Objective - Vital Signs Vital signs: Vital Signs Temp 98.3 F 07/15/21 08:10 Pulse 80 07/15/21 11:47 Resp 17 07/15/21 08:55 BP 112/71 07/15/21 08:10 Pulse Ox 100 07/15/21 08:10 Intake & Output 07/14/21 07/15/21 07/15/21 18:59 06:59 18:59 Intake Total 500 240 Output Total 900 1100 Balance -400 -1100 240 Intake: Oral 500 240 Output: Urine 900 1100 Other: Voiding Method Indwelling Catheter Indwelling Catheter Indwelling Catheter # Bowel Movements 0 - Exam On examination patient is comfortable awake is not in any acute distress. 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 Hyponatremia, hyperosmolar associated with high ETOH levels as well as h ypervolemic hyponatremia. Status post diuresis 2. Acute kidney injury secondary to hemodynamic ATN with low blood pressures. Baseline creatinine around 1.0., Currently improved 3. Volume overload 4. ETOH abuse 5. Suicidal ideation with history of depression, evaluated by psych. 6. Metabolic alkalosis secondary to diuresis 7. GI bleed status post IV DDAVP Ellik was on hold. EGD showed bleeding duodenal and gastric ulceration. Plan: Continue to encourage increase oral intake. Continue with Midodrine IV Lasix 1 and continue with oral Lasix. Check labs today
[2021-07-15 13:19] LABS: African American GFR (CKD) >90 (>60 ml/min/1.73 sqM); Anion Gap 4 mmol/L; Blood Urea Nitrogen 33 mg/dL (9-20); Calcium 8.2 mg/dL (8.4-10.2); Carbon Dioxide 31 mmol/L (22-30); Chloride 101 mmol/L (98-107); Glucose 119 mg/dL (74-99); Non-African American GFR(CKD) 81 (>60 ml/min/1.73 sqM); Potassium 5.7 mmol/L (3.5-5.1); Sodium 136 mmol/L (137-145)
[2021-07-15 17:06] LABS: Glucose,Whole Blood 105 mg/dL (75-99)
[2021-07-15] MEDS: ACETAMINOPHEN TAB 325 MG TAB PO PRN (18:03)
[2021-07-15 21:19] LABS: Glucose,Whole Blood 148 mg/dL (75-99)
[2021-07-15] MEDS: MIRTAZAPINE 15 MG TAB PO SCH (21:51)
[2021-07-15 22:16] VITALS: RESP 16; TEMP 98
[2021-07-16] MEDS: ACETAMINOPHEN TAB 325 MG TAB PO PRN ×2 (00:08→09:48)
[2021-07-16] MEDS: LACTATED RINGERS 1,000 ML IV SCH (04:59)
[2021-07-16 07:41] LABS: Glucose,Whole Blood 128 mg/dL (75-99)
[2021-07-16] MEDS: ONDANSETRON 4 MG/2 ML VIAL IVP PRN (07:58)
[2021-07-16] MEDS: IPRATROPIUM-ALBUTEROL 3 ML NEB INHALATION SCH ×3 (08:05→15:26)
[2021-07-16] MEDS: INSULIN ASPART (NovoLOG) 100 UNIT/ML VIAL SQ SCH ×2 (08:09→12:32)
[2021-07-16] MEDS: MIDODRINE 5 MG TAB PO SCH ×2 (08:49→12:52)
[2021-07-16 09:09] VITALS: BP 115/76
[2021-07-16] MEDS: METOPROLOL TARTRATE 12.5 MG TAB PO SCH (09:12)
[2021-07-16] MEDS: SUCRALFATE 1 GM TAB PO SCH ×2 (09:12→13:08)
[2021-07-16] MEDS: DILTIAZEM CD 120 MG CAP.ER.24H PO SCH (09:12)
[2021-07-16] MEDS: FUROSEMIDE 20 MG TAB PO SCH (09:12)
[2021-07-16] MEDS: SERTRALINE 100 MG TAB PO SCH (09:12)
[2021-07-16] MEDS: NICOTINE 21MG/24HR PATCH TRANSDERM SCH (09:12)
[2021-07-16] MEDS: chlordiazePOXIDE 5 MG CAPSULE PO SCH (09:13)
[2021-07-16] MEDS: NYSTATIN 100,000 UNIT/ML SUSP 500,000 UNIT/5 ML CUP PO SCH ×2 (09:13→13:08)
[2021-07-16] MEDS: PANTOPRAZOLE 40 MG/10 ML VIAL IVP SCH (09:13)
[2021-07-16] MEDS ORDERED: FUROSEMIDE 10 MG/ML 4 ML VIAL IV STA (09:45)
[2021-07-16] MEDS ORDERED: SODIUM ZIRCONIUM CYCLOSILICATE 10 GM PACKET PO ONE (10:00)
[2021-07-16 11:51] LABS: Glucose,Whole Blood 127 mg/dL (75-99)
--- NOTE | 2021-07-16 12:08 | P.PN ---
Subjective Principal diagnosis: Patient is seen for follow-up for acute kidney injury. He also had hyponatremia which has improved. Patient has of Zaragoza catheter which was replaced due to urine retention. Creatinine 1.0 on 07/16/2021 Status post IV Lasix yesterday. Objective - Vital Signs Vital signs: Vital Signs Temp 98.0 F 07/16/21 08:00 Pulse 85 07/16/21 11:55 Resp 16 07/16/21 08:00 BP 115/76 07/16/21 08:00 Pulse Ox 96 07/16/21 08:00 Intake & Output 07/15/21 07/16/21 07/16/21 18:59 06:59 18:59 Intake Total 480 240 Output Total 1300 350 Balance -820 -350 240 Intake: Oral 480 240 Output: Urine 1300 350 Uretheral (Zaragoza) 1300 Other: Voiding Method Indwelling Catheter Indwelling Catheter Indwelling Catheter # Bowel Movements 0 - Exam On examination patient is comfortable awake is not in any acute distress. Examination of the heart S1 and S2 examination lungs decreased breath sounds at the bases, basal crackles Examination lower extremities shows 1+edema MULE TENDER exam shows patient is moving all 4 extremities - Labs CBC & Chem 7: 07/13/21 08:31 07/15/21 12:42 Labs: Abnormal Lab Results - Last 24 Hours (Table) 07/15/21 07/15/21 07/15/21 Range/Units 12:42 17:02 21:04 Sodium 136 L (137-145) mmol/L Potassium 5.7 H (3.5-5.1) mmol/L Carbon Dioxide 31 H (22-30) mmol/L BUN 33 H (9-20) mg/dL Glucose 119 H (74-99) mg/dL POC Glucose (mg/dL) 105 H 148 H (75-99) mg/dL Calcium 8.2 L (8.4-10.2) mg/dL 07/16/21 07/16/21 Range/Units 07:40 11:49 Sodium (137-145) mmol/L Potassium (3.5-5.1) mmol/L Carbon Dioxide (22-30) mmol/L BUN (9-20) mg/dL Glucose (74-99) mg/dL POC Glucose (mg/dL) 128 H 127 H (75-99) mg/dL Calcium (8.4-10.2) mg/dL Assessment and Plan Assessment: 1. Hyponatremia, hypervolemic. Improved 2. Acute kidney injury secondary to hemodynamic ATN with low blood pressures. Baseline creatinine around 1.0., Currently improved 3. Volume overload, restarted loop diuretics 4. ETOH abuse 5. Suicidal ideation with history of depression, evaluated by psych. 6. Metabolic alkalosis secondary to diuresis 7. GI bleed status post IV DDAVP, EGD showed bleeding duodenal and gastric ulceration. 8. Hyperkalemia, renal function has improved and patient has a Zaragoza catheter. His blood sugar was also not elevated. Expect improvement in the potassium with IV Lasix. Repeat labs in a.m. avoid constipation Plan: Continue to encourage increase oral intake. Continue with Midodrine Increase Lasix, repeat labs in a.m.
--- NOTE | 2021-07-16 12:28 | P.PN ---
Subjective Progress Note Date: 07/15/21 61 year old male with history of hypertension, atrial fibrillation, atrial flutter, alcohol abuse, COPD who has been seen multiple times in the ER for alcohol intoxication and suicidal ideation in the past was brought in by EMS as his roommate found him unresponsive. Patient drinks daily half a gallon. Patient evaluated in the ER. He would wake up intermittently say a few words and go back to sleep. Patient appears trunk, sees he wants to and appears that he is seeing things in the room as he is pointing at olpes. Patient is unable to maintain eye contact as he drifts into sleep. She received breathing treatment on his way to the hospital and also endorses before he came to the hospital. He received another nebulizing treatment before I evaluated him. Patient continues to wheeze significantly on evaluation. He denies any cough or shortness of breath or chest pain. Patient was afebrile tachycardic at 106, respiratory rate of 15 blood pressure 107/78 oxygen saturation 89% on room air improved to 97% on 2 L. EKG was obtained showed A. fib with rapid response of response at 120 CT of the brain was negative for any acute abnormality does have acute mastoiditis. Chest x-ray suggestive of mild congestive heart failure. Labs are reviewed patient has a WBC of 4.2 hemoglobin 12.7 sodium 118 chloride 82 bicarb 22 BUN 37 creatinine is 0.03. Ammonia level is a 25 alcohol level 218Patient is alcohol intoxication with suicidal ideation. Sitter at bedside ordered. We will discontinue IV fluids as patient appears volume overloaded. Solu-Medrol was initiated at 60 IV every 6 with DuoNeb's with pulmonary consult. Sodium levels with the acetaminophen urine osmolality were ordered. Nephrology consulted for management of sodium. 06/27 patient evaluated bedside is alert and answer questions appropriately. Sitter at bedside. Patient is currently 84% on 3 L of oxygen. Repeat chest x- ray suggestive of right lower lid and a troponin airspace opacity along with le ft lower airspace opacity with developing infectious process with COPD changes 06/28 patient evaluated at bedside lying comfortably in bed. Patient denies any chest pain or shortness of breath. Vitals are stable patient continues from and hyponatremia with a repeat sodium 122 potassium 5.5 chloride 88 BUN 72 creatinine 1.56. Serum osmolarity continues to remain high 305 continue Lasix 40 IV twice a day. Solu-Medrol reduced to every 8 8 hours 60 mg. Nephrology recommendation appreciated 06/29: Repeat chest x-ray reveals cardiomegaly with right greater than left bilateral lower lung acute infiltrates and/or atelectasis with right-sided volume loss remain present. No significant change from yesterday. Patient is followed closely by nephrology with plan to continue IV Lasix encourage oral protein intake and repeat labs tomorrow. Patient has seen by psychiatry with expectation of some cognitive clearing so they can expand the psychiatric assessment. Patient is still quite confused unable to answer questions and follow commands. He has been afebrile, heart rate 88, blood pressure 106/59, pulse ox 97% on 4 L nasal cannula. Sodium 128, potassium 4.0, chloride 85, CO2 38, BUN 63 creatinine 1.32. Blood sugars are running between 100 4891. TSH 1.250. Urinalysis negative for infection. Sodium 38. 06/30: The patient is awake this morning. He knows where he is at. He states he normally drinks a fifth of liquor per day. He is able to verbalize that he would like to have it inhaler when he leaves the hospital. Patient is followed by pulmonary medicine Repeat chest x-ray reveals improved aeration at the left base. Continued extensive consolidation or atelectasis of the right lower lobe. Patient has been afebrile, heart rate 79, blood pressure 126/76, pulse ox 92% on 3 L. social media specialist is atrial fibrillation with controlled rate. Repeat blood work reveals hemoglobin 9.7, platelet count 129. Sodium 132, potassium 3.1, chloride 89, CO2 39, BUN 60 and creatinine 1.03. Blood sugars are running between 172 and 222. Patient is having good urine output. 07/01: Patient's mental status is improving. He is able to answer questions appropriately. Patient has been afebrile, heart rate in the 80s to 100s, blood pressure 118/60, pulse ox 90% on 3 L nasal cannula. Capillary blood glucose running between 160 and 358. Levemir 10 units at bedtime added. Zaragoza catheter remains in place. Hospitalist Physician recommended continuing IV Lasix encourage oral protein intake.. 07/02: Patient is verbalizing that he still not feeling well enough to go home today. He is awake alert and oriented 3. His mental status is significantly improved. His plan is to return to his current living situation and social work has been working with him on this. Patient apparently has an oxygen concentrator but does not use it. We will be making arrangements for home oxygen therapy. He is pulse oxing 97% on 3 L. Heart rate is running in the 100 and teens to 121. Blood pressure 114/51. He has been afebrile. Low-dose Lopressor will be added to Cardizem for rate control for atrial fibrillation. Patient has had no signs of bleeding, eliquis will be started. 07/03: Patient is having drop in blood pressure with lightheadedness. This morning blood pressure 1 was 78/42. We've ordered a fluid bolus of 250 ML's due to history of heart failure, hold Cardizem, Lasix, metoprolol. Noted the patient had been taken off Solu-Medrol on 07/01 by pulmonary medicine. Cortisone level be checked and patient will be started on Solu-Cortef 100 mg IV every 8 hours. Repeat blood work reveals sodium 132, potassium 4.1, chloride 87, CO2 38, BUN 100 and creatinine 1.13. Blood sugars are running between 117 and 155. No new plan from pulmonary medicine. Patient has been seen by psychiatry with recommendations to monitor for alcohol withdrawal with Ativan when necessary on [facility] protocol. Zoloft 50 mg daily was added and melatonin 5 mg at bedtime. 07/06: Over the weekend, patient developed GI bleed, eliquis was placed on hold and patient underwent EGD with Dr. Kaiser finding acute gastric ulcerations and bleeding, acute duodenal ulcerations with bleeding, acute severe erosive esophagitis from candidiasis, gastroesophageal reflux disease. Biopsies are pending. Patient was also seen by cardiology for A. fib with episode of RVR. Solu Cortef will be discontinued. Hemoglobin came back today at 6.5 and patient will be transfused 1 unit of packed RBCs. Echocardiogram reveals EF of 50-55%, mild mitral regurgitation, moderate to severe tricuspid regurgitation, severe pulmonary hypertension with RVSP 76.53 mmHg. Chest x-ray reveals suspected new small left effusion with slight worsening in patchy left basilar atelectasis and/or consolidation. Continued extensive right lower lobe consolidation. Follow-up to ensure clearance of this finding to exclude possibility of lobar collapse secondary to central obstructing lesion. Possible small right effusion. Patient is also followed by pulmonary medicine and nephrology. 2: Patient had increased confusion last evening dose of Ativan was given. He also had decreased blood pressure and a run of V. tach 14 beats that was self- limited. Patient is not eating very much because he is on a clear liquid diet and does not like it. He is requesting Ativan which is not required on the CIWA protocol at this point. Librium will be started,CIWA protocol will be discontinued. We'll increase Zoloft to 100 mg daily and add Remeron 15 mg at bedtime. Repeat blood work reveals WBC 10.1, hemoglobin 8.2. Sodium 131, potassium 3.8, chloride 92, CO2 37, BUN 73 creatinine 1.2. Blood sugars are running between 76 and 166. General surgery is planning to advance diet to full liquids. Cardiology has signed off this case. 07/08: Patient is seen today on the [facility] unit. He had a small dark BM last pm, no bright red blood. He has been afebrile, HR 60, BP 105/63, PO 100% 3L n/c. He is currently advanced to regular diet and remains on fluid restriction of 1500 ml. He is followed by GI and general surgery and continued on Carafate and Protonix. Sodium 133, K 3.3 and was replaced, Chloride 89, CO2 39, BUN62 and Creat 1.38, BS 87. CBG 86-155. Lasix is on hold and he is on midodrine in enhance BP per nephrology. Cardiology has signed off his case. 07/09: Patient is afebrile, heart rate 65, blood pressure 90/54 217/67, pulse ox 96% on 2 L. Sugar this morning was in the 50s status post D50. Levemir will be discontinued. Patient had a dark stool, hemoglobin ordered. Hemoglobin this morning was 9.3. He denies abdominal pain. Patient required Zaragoza catheter placement yesterday for urinary retention. Blood pressure has been on the soft side and Cardizem CD changed to once daily dosing. Discussed discharge plan wi th the patient and he is now agreeable to go to subacute rehab. Social work is been updated. 07/10: Patient is complaining of abdominal pain and GI will do general surgery has requested that GI perform endoscopy and clipping, continue Protonix and Carafate. Repeat hemoglobin is 8.1. BUN 40 and creatinine 1.2. Patient is Zaragoza catheter for urinary retention, good urine output, Lasix is on hold per nephrology and continued on fluid restriction for hyponatremia. Patient is afebrile, heart rate 80, blood pressure 107/67, pulse ox 100% on 3 L nasal cannula. He monitors atrial fibrillation with controlled rate. Patient is reaching 500 only on incentive spirometry. Discharge planning for subacute rehab which will most likely occur on Tuesday. 07/11 patient examined at bedside. Due to ongoing black stools and patient underwent EGD yesterday. 1 cm clean-based duodenal ulcer with no active bleeding was noted with antral erosive gastritis. Labs reviewed patient's hemoglobin stable at 8.3 MCV 105, blood sugar is stable at 97-150. Patient is, answering questions appropriately. Patient is too weak to be discharged home at this point. Dr. Zuñiga consulted for inpatient rehab. Librium was reduced to 5 twice a day. No episode of acute bleeding noted. 07/12 patient examined bedside. No recent episode of dark stools. Labs reviewed, magnesium 2.1 sodium 139 potassium 4.8. No use CBC to evaluate today. Continue Librium at 5 twice daily. Patient's anxiety is controlled on current dose of Librium and Zoloft. 07/13: Patient denies having any bloody stools. No nausea or vomiting. Abdominal pain is improving. His stools have been brown in color. He is currently tolerating regular diet.Patient remains with Zaragoza in place due to urinary retention. He has been afebrile, heart rate 69, blood pressure 113/65. Repeat blood work reveals WBC 6, hemoglobin 8.3, platelet count 195. Blood sugars are between 113 and 166. Pathology is pending from second EGD. He has been cleared for discharge from surgery. Plan is for either inpatient rehab or subacute rehab. Social work is working closely with the patient to make arrangements. We will plan to leave Zaragoza catheter in place and this can be removed at a different date at rehab. 07/14: Patient denies any new complaints, no issues overnight. Nurse denies any issues. Patient is currently on oxygen at 3 L nasal cannula with pulse ox of 100%, heart rate has been in the 70s, afebrile, blood pressure 123/77. Insurance has denied IP rehab. Discussed in detail options for discharge. Social work will work on subacute rehab today. 07/15: Patient denies any new concerns. Social work is working on discharge planning. There's been no blood in his stools. Blood sugars are running in the low 100s. Patient has been afebrile, heart rate 88, blood pressure 112/71, pulse ox 100% on 3 L nasal cannula. Patient will be discharged once arrangements are completed. ROS Constitutional: Denies chills, Denies fever, reports dizziness, reports lightheadedness, endorses lethargy Denies poor appetite, endorses weakness, Denies weight loss Eyes: denies decreased vision, denies diplopia, denies discharge Ears: deny: decreased hearing Ears, nose, mouth and throat: Denies dental pain, Denies headache, Denies nasal discharge, Denies nose pain Cardiovascular: Denies chest pain, Denies decreased exercise tolerance, Denies edema, Denies high blood pressure, Denies irregular heart beat, Denies palpitations, Denies paroxysmal nocturnal dyspnea, Denies rapid heart beat, Denies shortness of breath Respiratory: Denies dyspnea, Denies home oxygen, Denies wheezing Gastrointestinal: Denies abdominal pain, Denies change in bowel habits, Denies coffee ground emesis, Denies early satiety, Denies excessive gas, Denies heartburn, Denies hematemesis, Denies hematochezia, Denies loss of appetite, Denies nausea, Denies vomiting, denies dark stools Genitourinary: Denies dysuria, Denies flank pain, Denies kidney stones, Denies menorrhagia, Denies urgency, Denies urinary frequency Musculoskeletal: Denies gait dysfunction, Denies limitation of motion, Denies morning stiffness, Denies muscle cramps Integumentary: Denies rash, Denies wounds, Denies brittle nails, Denies change in hair/nails, Denies darkening of skin Neurological: Denies balance difficulties, Denies change in speech, Denies double vision, Shirlene status improved, noted gait dysfunction, Denies loss of vision, Denies motor disturbance, Denies numbness, Denies paralysis, Denies paresthesias, Denies seizures Psychiatric: Reports anxiety, reports depression Endocrine: Denies excessive sweating, Denies excessive thirst, Denies high blood sugars, Denies palpitations Hematologic/Lymphatic: Denies easy bruising, Denies lymphadenopathy Physical exam - Constitutional General appearance: Awake, 61-year-old male, no acute distress noted - EENT Eyes: anicteric sclerae, PERRLA, normal appearance conjunctival injection ENT: hearing grossly normal - Neck Neck: no lymphadenopathy, normal ROM, no other, no rigidity, no stridor, no thyromegaly - Respiratory Respiratory: Decreased air entry with few Crackles improved wheezing - Cardiovascular Rhythm: Irregularly irregular Heart sounds: normal: S1, S2 Abnormal Heart Sounds: no systolic murmur, no diastolic murmur, no rub, no S3 Gallop, no S4 Gallop, no click, no other - Gastrointestinal General gastrointestinal: normal bowel sounds, soft nontender - Integumentary Integumentary: T, peripheral pulses 2+ with less than 2 second capillary refill - Neurologic patient is cooperative, does move all extremities - Musculoskeletal Musculoskeletal: Gait could not be assessed strength equal bilaterally, significant weakness - Psychiatric PsychiatriC Alert oriented 3 Assessment and plan #1 acute metabolic encephalopathy secondary to alcohol intoxication and hyponatremia and elevated ammonia levels. Improved Fall precautions. #2 acute alcohol intoxication with alcohol dependence with history of alcohol withdrawal including DTs alcohol withdrawal protocol initiated. Vitamin supplemented. CIWA protocol discontinued, patient started on Librium Librium changed to scheduled dosing. #3 acute suicidal thoughts. Psychiatry consult appreciated and patient started on Zoloft will be increased and Remeron added and melatonin. #4 thrombocytopenia secondary to alcohol abuse and liver dysfunction continue to monitor hold anticoagulants #5 hyperosmolar hyponatremia secondary to alcohol nephrology consult a ppreciated. Continue po Lasix 40 mg every 12 hours. #6 acute hypoxic respiratory failure with evidence of aspiration pneumonia, acute diastolic heart failure. Continue I&O monitoring daily weights. Continue DuoNeb treatments #7 acute COPD exacerbation. Continue DuoNeb's as needed for shortness of breath. Sputum culture ordered. Pulmonary consult appreciated #8 microscopic bleed per rectum positive fecal occult hemoglobin stable continue monitor CBC may be related to gastritis secondary to alcohol abuse, Protonix 40 twice daily, repeat CBC this afternoon. #9 polysubstance abuse urine drug screen positive for meth and THC. Continue to monitor vitals. EKG negative for any ST or T-wave changes #10 acute kidney injury secondary to AtN. #11 acute A. fib with RVR, chronic persistent. Continue Cardizem CD 120 mg daily. Lopressor 12.5 mg twice daily. #10 acute GI bleed secondary to gastric ulcerations, duodenal ulceration status post blood transfusion of total of 4 units packed RBCs, status post EGD on 07/06 and 07/10 . Continue Carafate 1 g 3 times daily, Protonix 40 mg IV push twice daily. #11 Recurrent depression and generalized anxiety disorder. Increase zoloft to 10 0 mg daily and add remeron 15 mg at hs. 12. Run of nonsustained vtach. Continue to monitor. code status full code DVT. DISCHARG PLAN Subacute rehab or inpatient rehab Impression and plan of care have been directed as dictated by the signing physician. Leticia Sweet nurse practitioner acting as scribe for signing physician. Objective - Vital Signs Vital signs: Vital Signs Temp 98.0 F 07/15/21 21:02 Pulse 85 07/16/21 08:14 Resp 16 07/15/21 21:02 BP 103/63 07/15/21 21:02 Pulse Ox 97 07/15/21 21:02 Intake & Output 07/15/21 07/16/21 07/16/21 18:59 06:59 18:59 Intake Total 480 Output Total 1300 350 Balance -820 -350 Intake: Oral 480 Output: Urine 1300 350 Uretheral (Zaragoza) 1300 Other: Voiding Method Indwelling Catheter Indwelling Catheter # Bowel Movements 0 - Labs CBC & Chem 7: 07/13/21 08:31 07/15/21 12:42 Labs: Abnormal Lab Results - Last 24 Hours (Table) 07/15/21 07/15/21 07/15/21 Range/Units 11:11 12:42 17:02 Sodium 136 L (137-145) mmol/L Potassium 5.7 H (3.5-5.1) mmol/L Carbon Dioxide 31 H (22-30) mmol/L BUN 33 H (9-20) mg/dL Glucose 119 H (74-99) mg/dL POC Glucose (mg/dL) 124 H 105 H (75-99) mg/dL Calcium 8.2 L (8.4-10.2) mg/dL 07/15/21 07/16/21 Range/Units 21:04 07:40 Sodium (137-145) mmol/L Potassium (3.5-5.1) mmol/L Carbon Dioxide (22-30) mmol/L BUN (9-20) mg/dL Glucose (74-99) mg/dL POC Glucose (mg/dL) 148 H 128 H (75-99) mg/dL Calcium (8.4-10.2) mg/dL
[2021-07-16 14:00] VITALS: BMI 32.2
[2021-07-16 14:38] VITALS: PULSE 70
[2021-07-17] MEDS ORDERED: FUROSEMIDE 40 MG TAB PO SCH (09:00)
== END 2021-07-16 17:41 | disposition home health service (06) | DRG 896 ==
LOC: EC 10:20 → 3SCARD 14:18 → 5NMEDONC 07-03 00:41 → 3SCARD 07-04 16:35 → 4SSUR 07-10 21:58
PROVIDERS: ADMIT Internal Medicine; ATTEND Internal Medicine
PROC: 30233N1 Transfusion of Nonautologous Red Blood Cells into Peripheral Vein, Percutaneous Approach (ICD-10-PCS; 2021-07-04)
PROC: 0DB58ZX Excision of Esophagus, Via Natural or Artificial Opening Endoscopic, Diagnostic (ICD-10-PCS; principal; 2021-07-06 08:50)
PROC: 0DB78ZX Excision of Stomach, Pylorus, Via Natural or Artificial Opening Endoscopic, Diagnostic (ICD-10-PCS; principal; 2021-07-06 08:50)
PROC: 05HF33Z Insertion of Infusion Device into Left Cephalic Vein, Percutaneous Approach (ICD-10-PCS; 2021-07-09)
PROC: 0DB78ZX Excision of Stomach, Pylorus, Via Natural or Artificial Opening Endoscopic, Diagnostic (ICD-10-PCS; 2021-07-11)
DX: F10.229 Alcohol dependence with intoxication, unspecified (principal); I50.31 Acute diastolic (congestive) heart failure; G93.41 Metabolic encephalopathy; J69.0 Pneumonitis due to inhalation of food and vomit; J96.01 Acute respiratory failure with hypoxia; J96.02 Acute respiratory failure with hypercapnia; K25.0 Acute gastric ulcer with hemorrhage; K25.4 Chronic or unspecified gastric ulcer with hemorrhage; K26.0 Acute duodenal ulcer with hemorrhage; K26.4 Chronic or unspecified duodenal ulcer with hemorrhage; N17.0 Acute kidney failure with tubular necrosis; K21.01 Gastro-esophageal reflux disease with esophagitis, with bleeding; E87.3 Alkalosis; F33.9 Major depressive disorder, recurrent, unspecified; I47.2 Ventricular tachycardia; I48.21 Permanent atrial fibrillation; J44.0 Chronic obstructive pulmonary disease with (acute) lower respiratory infection; J44.1 Chronic obstructive pulmonary disease with (acute) exacerbation; J98.11 Atelectasis; K22.10 Ulcer of esophagus without bleeding; R45.851 Suicidal ideations; E87.1 Hypo-osmolality and hyponatremia; D62 Acute posthemorrhagic anemia; H70.009 Acute mastoiditis without complications, unspecified ear; B37.81 Candidal esophagitis; Z20.822 Contact with and (suspected) exposure to COVID-19; I27.20 Pulmonary hypertension, unspecified; I11.0 Hypertensive heart disease with heart failure; K72.90 Hepatic failure, unspecified without coma; D69.59 Other secondary thrombocytopenia; I95.9 Hypotension, unspecified; F15.10 Other stimulant abuse, uncomplicated; F12.10 Cannabis abuse, uncomplicated; F10.231 Alcohol dependence with withdrawal delirium; E87.5 Hyperkalemia; T50.2X5A Adverse effect of carbonic-anhydrase inhibitors, benzothiadiazides and other diuretics, initial encounter; E87.6 Hypokalemia; F17.210 Nicotine dependence, cigarettes, uncomplicated; F41.1 Generalized anxiety disorder; G47.00 Insomnia, unspecified; I45.10 Unspecified right bundle-branch block; K29.50 Unspecified chronic gastritis without bleeding; Y90.8 Blood alcohol level of 240 mg/100 ml or more; E78.5 Hyperlipidemia, unspecified; Z79.01 Long term (current) use of anticoagulants; Z79.899 Other long term (current) drug therapy; Z98.890 Other specified postprocedural states; Z90.49 Acquired absence of other specified parts of digestive tract
CPT/HCPCS: 36410; 36415; 36600; 43239; 70450; 71045; 71046; 76937; 80048; 80053; 80143; 80299; 80306; 80320; 81001; 81003; 82140; 82272; 82533; 82805; 83735; 83880; 83930; 83935; 84133; 84145; 84295; 84300; 84443; 84484; 84550; 85025; 85027; 85610; 85730; 86850; 86900; 86901; 86920; 87635; 88305; 93005; 93306; 94640; 94660; 94760; 96361; 96374; 96375; 99291

== ENCOUNTER 2021-07-17 02:02 | Inpatient (IN) | payer OTHER ==
[2021-07-17] MEDS ORDERED: methylPREDNISolone SOD SUCCI 125 MG/2 ML VIAL IV STA (02:09)
[2021-07-17] MEDS ORDERED: IPRATROPIUM-ALBUTEROL 3 ML NEB INHALATION STA (02:09)
[2021-07-17 02:26] LABS: Glucose,Whole Blood 110 mg/dL (75-99)
[2021-07-17 02:40] LABS: Appearance,Urine Clear (Clear); Bacteria,Urine Many /hpf; Bilirubin,Urine Negative (Negative); Blood,Urine Trace (Negative); Color,Urine Yellow; Glucose,Urine (UA) Negative (Negative); Hyaline Casts,Urine 11 /lpf (0-2); Ketones,Urine Negative (Negative); Leukocyte Esterase,Urine Moderate (Negative); Mucus,Urine Rare /hpf; Nitrite,Urine Positive (Negative); PH, Urine 5.5 (5.0-8.0); Protein,Urine 1+ (Negative); RBC,Urine 1 /hpf (0-5); Specific Gravity,Urine 1.015 (1.001-1.035); Urobilinogen,Urine <2.0 mg/dL (<2.0); WBC,Urine 12 /hpf (0-5)
[2021-07-17 02:50] LABS: Amphetamine Screen,Urine Not Detected (NotDetected); Barbiturate Screen,Urine Not Detected (NotDetected); Benzodiazepines Screen,Urine Detected (NotDetected); Cocaine Screen,Urine Not Detected (NotDetected); Methadone Screen, Urine Not Detected (NotDetected); Opiate Screen,Urine Not Detected (NotDetected); Oxycodone Screen, Urine Not Detected (NotDetected); Phencyclidine Screen,Urine Not Detected (NotDetected); Tricyclic Antidepressant,Urine Not Detected (NotDetected); Urn Cannabinoid Scrn Detected (NotDetected)
[2021-07-17 02:55] LABS: Anisocytosis Slight; Basophils % (A) 0 %; Eosinophils # (A) 0.1 k/uL (0-0.7); Eosinophils % (A) 1 %; HCT 28.2 % (39.0-53.0); HGB 8.3 gm/dL (13.0-17.5); Hypochromasia Marked; Lymphocytes # (A) 0.8 k/uL (1.0-4.8); Lymphocytes % (A) 14 %; MCH 30.4 pg (25.0-35.0); MCHC 29.3 g/dL (31.0-37.0); MCV 103.8 fL (80.0-100.0); Macrocytosis Moderate; Monocytes # (A) 0.3 k/uL (0-1.0); Monocytes % (A) 6 %; Neutrophils % (A) 74 %; Platelet Count 196 k/uL (150-450); Poikilocytosis Slight; RBC 2.71 m/uL (4.30-5.90); RDW 18.2 % (11.5-15.5); WBC 5.4 k/uL (3.8-10.6)
--- NOTE | 2021-07-17 03:00 | CT ---
EXAMINATION TYPE: CT brain wo con DATE OF EXAM: 07/17/2021 COMPARISON: 06/26/2021 HISTORY: AMS CT DLP: 1186.4 mGycm Automated exposure control for dose reduction was used. Images of the brain obtained with no contrast. There is mild cerebral cortical atrophy. There is no mass effect or midline shift. There is no sign o f intracranial hemorrhage. The calvarium is intact. There is normal aeration of the mastoid sinuses. There is some mild white matter hypodensity left posterior parietal lobe. There is minimal hypodensit y in the anterior left internal capsule. IMPRESSION: Cerebral atrophy. White matter hypodensity probably related to some chronic small vessel ischemia whi ch is not changed compared to recent exam. No evidence of cortical infarct.
[2021-07-17 03:01] LABS: INR 0.8 (<1.2); Partial Thromboplastin Time 22.5 sec (22.0-30.0); Prothrombin Time 9.5 sec (9.0-12.0)
--- NOTE | 2021-07-17 03:03 | XR ---
EXAMINATION TYPE: XR chest 1V portable DATE OF EXAM: 07/17/2021 COMPARISON: 07/06/2021 HISTORY: Altered mental status TECHNIQUE: Single view FINDINGS: Heart is enlarged. There is no gross heart failure. There is some linear infiltrate and ate lectasis in the right mid and lower lung field. There is also some airspace infiltrate left lower lob e. There are chest leads. Mediastinum is normal. IMPRESSION: Bilateral lower lobe pneumonia and atelectasis. Small right pleural effusion. Lung disease increased compared to last exam. No heart failure seen.
[2021-07-17 03:05] LABS: Lactic Acid, Venous 1.3 mmol/L (0.7-2.0)
[2021-07-17 03:07] LABS: Albumin 3.2 g/dL (3.5-5.0); Calcium 8.5 mg/dL (8.4-10.2); Potassium 4.7 mmol/L (3.5-5.1); Total Bilirubin 0.4 mg/dL (0.2-1.3); Total Protein 6.1 g/dL (6.3-8.2)
[2021-07-17] MEDS ORDERED: FUROSEMIDE 10 MG/ML 4 ML VIAL IV STA (03:37)
[2021-07-17] MEDS ORDERED: NALOXONE 0.4 MG/ML 1 ML VIAL IV PRN (03:46)
--- NOTE | 2021-07-17 03:59 | ED ---
General Adult HPI - General Chief complaint: Altered Mental Status Stated complaint: Altered mental status Time Seen by Provider: 07/17/21 02:09 Source: EMS, RN notes reviewed, old records reviewed Mode of arrival: EMS Limitations: altered mental status - History of Present Illness Initial comments: Patient is a 61-year-old male who was just discharged from the hospital today following a prolonged stay presents emergency department over concern for al tered mental status. Patient apparently was discharged home, and was found altered at home today. He specifically a and O 4. Was found alert and oriented times one. Unable to provide much history. Per discharge. Per, is not on blood thinners. Has a history of CHF, COPD, alcohol abuse. Vital signs are relatively normal. Uncertain if he was wearing oxygen at home. Presents over concern for the altered mental status. - Related Data Previous Rx's Medication Instructions Recorded Acetaminophen Tab [Tylenol] 650 mg PO Q6HR PRN tab 07/13/21 Metoprolol Tartrate [Lopressor] 12.5 mg PO BID #60 tab 07/13/21 Midodrine [ProAmatine] 5 mg PO AC-TID #90 tab 07/13/21 Mirtazapine [Remeron] 15 mg PO HS #30 tab 07/13/21 Nicotine 21Mg/24Hr Patch [Habitrol] 1 patch TRANSDERM DAILY #30 patch 07/13/21 Pantoprazole [Protonix] 40 mg PO BID #60 tab 07/13/21 Sertraline [Zoloft] 100 mg PO DAILY #30 tab 07/13/21 Sucralfate [Carafate] 1 gm PO AC-TID #90 tab 07/13/21 Baclofen [Lioresal] 10 mg PO BID #60 tablet 07/15/21 Diltiazem Cd [Cardizem CD] 120 mg PO DAILY #30 cap 07/16/21 Allergies Allergy/AdvReac Type Severity Reaction Status Date / Time No Known Allergies Allergy Verified 07/17/21 02:05 Review of Systems ROS Statement: Those systems with pertinent positive or pertinent negative responses have been documented in the HPI. Unable to obtain secondary to patient's current clinical status. ROS Other: All systems not noted in ROS Statement are negative. Past Medical History Past Medical History: Atrial Fibrillation, COPD, Hypertension History of Any Multi-Drug Resistant Organisms: None Reported Past Surgical History: No Surgical Hx Reported Past Anesthesia/Blood Transfusion Reactions: No Reported Reaction Past Psychological History: Depression Smoking Status: Current every day smoker Past Alcohol Use History: Abuse, Daily, Heavy Past Drug Use History: Marijuana General Exam - General Exam Comments Initial Comments: General: Appears in no acute distress. HEAD: Normal with no signs of head trauma. EYES: EOMI. Pupils are 3 mm and equal bilaterally. PERRLA ENT: Hearing grossly intact, normal oropharynx. RESPIRATORY: Bilateral end expiratory wheezes. No obvious rhonchi. Mild increased work of breathing. C/V: Irregular rate and rhythm. S1 and S2 auscultated. Peripheral pulses are 2+ and intact throughout. ABD: Abd is soft, nontender, nondistended EXT: Normal range of motion, no obvious deformity SKIN: No rashes or lesions observed on exposed skin. NEURO: Alert and oriented 1. No obvious deficits. Moving all 4 extremity is. NIH is approximately 0. GCS is 15. Limitations: altered mental status Course Vital Signs 07/17/21 07/17/21 07/17/21 02:05 02:26 03:15 Pulse Rate 102 H 100 111 H Respiratory 32 H 22 Rate Blood Pressure 122/74 129/96 O2 Sat by Pulse 100 100 Oximetry 07/17/21 07/17/21 07/17/21 03:20 03:22 03:40 Pulse Rate 98 91 95 Respiratory 21 23 Rate Blood Pressure 134/76 145/69 O2 Sat by Pulse 100 100 Oximetry Medical Decision Making - Medical Decision Making Based on the patient's presentation and physical exam, there is concern for altered mental status. I suspect is likely secondary to improper action usage at home, however cannot rule out other etiologies. Therefore broad workup will be obtained including infectious, cardiac, CT brain. Patient's mental status has been improving rapidly, on proper oxygen administration. Due to the patient's COPD exacerbation, he will be started on IV steroids as well as breathing treatments. His is now alert and oriented 2-3 and having normal conversations. He was in agreement this plan. EKG showed atrial fibrillation with no signs of acute ischemia. CT brain showed no acute intracranial process. Chest x-ray did reveal bilateral pulmonary vascular congestion versus pneumonia. Laboratory studies were remarkable for a chronic macrocytic anemia with a hemoglobin of 8.2 which is stable. BNP is elevated to 4500. Troponin is within normal limits. Patient does have a mild [place] eye likely secondary to his UTI, as he has positive nitrates, moderate leuk esterase as well as bacteria and WBCs. Patient is mildly intoxicated with alcohol with alcohol level of 58. Benzos and marijuana are detected in his UDS. Covid is negative. VBG is still pending at this time. On reevaluation, patient's mental status is improved. He appears to be back to his baseline as he is alert and oriented 3-4 at this time. I updated him on the results of his laboratory studies and imaging. I would like to admitted the hospital. He was in agreement this plan. Patient be readmitted to the team that discharged him today, Dr. Hunt's group. Page was sent out at approximately 3:50 AM. We'll continue to treat his COPD exacerbation with Solu- Medrol and breathing treatments. He will be given a dose of Lasix will be restarted on twice a day Lasix. He'll be started on Rocephin as well as as azithromycin for treatment of his UTI and possible pneumonia. He was in agreement this plan.I spoke with Dr. Hunt over the phone who accepted the admission. - Lab Data Result diagrams: 07/17/21 02:20 07/17/21 02:20 Lab Results 07/17/21 07/17/21 07/17/21 Range/Units 02:06 02:17 02:17 WBC (3.8-10.6) k/uL RBC (4.30-5.90) m/uL Hgb (13.0-17.5) gm/dL Hct (39.0-53.0) % MCV (80.0-100.0) fL MCH (25.0-35.0) pg MCHC (31.0-37.0) g/dL RDW (11.5-15.5) % Plt Count (150-450) k/uL MPV Neutrophils % % Lymphocytes % % Monocytes % % Eosinophils % % Basophils % % Neutrophils # (1.3-7.7) k/uL Lymphocytes # (1.0-4.8) k/uL Monocytes # (0-1.0) k/uL Eosinophils # (0-0.7) k/uL Basophils # (0-0.2) k/uL Hypochromasia Poikilocytosis Anisocytosis Macrocytosis PT (9.0-12.0) sec INR (<1.2) APTT (22.0-30.0) sec Sodium (137-145) mmol/L Potassium (3.5-5.1) mmol/L Chloride (98-107) mmol/L Carbon Dioxide (22-30) mmol/L Anion Gap mmol/L BUN (9-20) mg/dL Creatinine (0.66-1.25) mg/dL Est GFR (CKD-EPI)AfAm (>60 ml/min/1.73 sqM) Est GFR (CKD-EPI)NonAf (>60 ml/min/1.73 sqM) Glucose (74-99) mg/dL POC Glucose (mg/dL) 110 H (75-99) mg/dL POC Glu Waste Disposal Attendant ID Niya Goode Plasma Lactic Acid [place] (0.7-2.0) mmol/L Calcium (8.4-10.2) mg/dL Total Bilirubin (0.2-1.3) mg/dL AST (17-59) U/L ALT (4-49) U/L Alkaline Phosphatase (38-126) U/L Ammonia (<30) umol/L Troponin I (0.000-0.034) ng/mL NT-Pro-B Natriuret Pep pg/mL Total Protein (6.3-8.2) g/dL Albumin (3.5-5.0) g/dL Urine Color Yellow Urine Appearance Clear (Clear) Urine pH 5.5 (5.0-8.0) Ur Specific [place] 1.015 (1.001-1.035) Urine Protein 1+ H (Negative) Urine Glucose (UA) Negative (Negative) Urine Ketones Negative (Negative) Urine Blood Trace H (Negative) Urine Nitrite Positive (Negative) Urine Bilirubin Negative (Negative) Urine Urobilinogen <2.0 (<2.0) mg/dL Ur Leukocyte Esterase Moderate H (Negative) Urine RBC 1 (0-5) /hpf Urine WBC 12 H (0-5) /hpf Urine WBC Clumps Rare H (None) /hpf Urine Bacteria Many H (None) /hpf Hyaline Casts 11 H (0-2) /lpf Urine Mucus Rare H (None) /hpf Urine Opiates Screen Not Detected (NotDetected) Ur Oxycodone Screen Not Detected (NotDetected) Urine Methadone Screen Not Detected (NotDetected) Ur Propoxyphene Screen Not Detected (NotDetected) Ur Barbiturates Screen Not Detected (NotDetected) U Tricyclic Antidepress Not Detected (NotDetected) Ur Phencyclidine Scrn Not Detected (NotDetected) Ur Amphetamines Screen Not Detected (NotDetected) U Methamphetamines Scrn Not Detected (NotDetected) U Benzodiazepines Scrn Detected H (NotDetected) Urine Cocaine Screen Not Detected (NotDetected) U Marijuana (THC) Screen Detected H (NotDetected) Serum Alcohol mg/dL Coronavirus (PCR) (Not Detectd) 07/17/21 07/17/21 07/17/21 Range/Units 02:20 02:20 02:20 WBC 5.4 (3.8-10.6) k/uL RBC 2.71 L (4.30-5.90) m/uL Hgb 8.3 L (13.0-17.5) gm/dL Hct 28.2 L (39.0-53.0) % MCV 103.8 H (80.0-100.0) fL MCH 30.4 (25.0-35.0) pg MCHC 29.3 L (31.0-37.0) g/dL RDW 18.2 H (11.5-15.5) % Plt Count 196 (150-450) k/uL MPV 8.0 Neutrophils % 74 % Lymphocytes % 14 % Monocytes % 6 % Eosinophils % 1 % Basophils % 0 % Neutrophils # 4.0 (1.3-7.7) k/uL Lymphocytes # 0.8 L (1.0-4.8) k/uL Monocytes # 0.3 (0-1.0) k/uL Eosinophils # 0.1 (0-0.7) k/uL Basophils # 0.0 (0-0.2) k/uL Hypochromasia Marked Poikilocytosis Slight Anisocytosis Slight Macrocytosis Moderate PT 9.5 (9.0-12.0) sec INR 0.8 (<1.2) APTT 22.5 (22.0-30.0) sec Sodium 136 L (137-145) mmol/L Potassium 4.7 (3.5-5.1) mmol/L Chloride 98 (98-107) mmol/L Carbon Dioxide 32 H (22-30) mmol/L Anion Gap 6 mmol/L BUN 34 H (9-20) mg/dL Creatinine 1.46 H (0.66-1.25) mg/dL Est GFR (CKD-EPI)AfAm 59 (>60 ml/min/1.73 sqM) Est GFR (CKD-EPI)NonAf 51 (>60 ml/min/1.73 sqM) Glucose 108 H (74-99) mg/dL POC Glucose (mg/dL) (75-99) mg/dL POC Glu Waste Disposal Attendant ID Plasma Lactic Acid [place] (0.7-2.0) mmol/L Calcium 8.5 (8.4-10.2) mg/dL Total Bilirubin 0.4 (0.2-1.3) mg/dL AST 27 (17-59) U/L ALT 34 (4-49) U/L Alkaline Phosphatase 92 (38-126) U/L Ammonia (<30) umol/L Troponin I (0.000-0.034) ng/mL NT-Pro-B Natriuret Pep pg/mL Total Protein 6.1 L (6.3-8.2) g/dL Albumin 3.2 L (3.5-5.0) g/dL Urine Color Urine Appearance (Clear) Urine pH (5.0-8.0) Ur Specific [place] (1.001-1.035) Urine Protein (Negative) Urine Glucose (UA) (Negative) Urine Ketones (Negative) Urine Blood (Negative) Urine Nitrite (Negative) Urine Bilirubin (Negative) Urine Urobilinogen (<2.0) mg/dL Ur Leukocyte Esterase (Negative) Urine RBC (0-5) /hpf Urine WBC (0-5) /hpf Urine WBC Clumps (None) /hpf Urine Bacteria (None) /hpf Hyaline Casts (0-2) /lpf Urine Mucus (None) /hpf Urine Opiates Screen (NotDetected) Ur Oxycodone Screen (NotDetected) Urine Methadone Screen (NotDetected) Ur Propoxyphene Screen (NotDetected) Ur Barbiturates Screen (NotDetected) U Tricyclic Antidepress (NotDetected) Ur Phencyclidine Scrn (NotDetected) Ur Amphetamines Screen (NotDetected) U Methamphetamines Scrn (NotDetected) U Benzodiazepines Scrn (NotDetected) Urine Cocaine Screen (NotDetected) U Marijuana (THC) Screen (NotDetected) Serum Alcohol 58 mg/dL Coronavirus (PCR) (Not Detectd) 07/17/21 07/17/21 07/17/21 Range/Units 02:20 02:20 02:20 WBC (3.8-10.6) k/uL RBC (4.30-5.90) m/uL Hgb (13.0-17.5) gm/dL Hct (39.0-53.0) % MCV (80.0-100.0) fL MCH (25.0-35.0) pg MCHC (31.0-37.0) g/dL RDW (11.5-15.5) % Plt Count (150-450) k/uL MPV Neutrophils % % Lymphocytes % % Monocytes % % Eosinophils % % Basophils % % Neutrophils # (1.3-7.7) k/uL Lymphocytes # (1.0-4.8) k/uL Monocytes # (0-1.0) k/uL Eosinophils # (0-0.7) k/uL Basophils # (0-0.2) k/uL Hypochromasia Poikilocytosis Anisocytosis Macrocytosis PT (9.0-12.0) sec INR (<1.2) APTT (22.0-30.0) sec Sodium (137-145) mmol/L Potassium (3.5-5.1) mmol/L Chloride (98-107) mmol/L Carbon Dioxide (22-30) mmol/L Anion Gap mmol/L BUN (9-20) mg/dL Creatinine (0.66-1.25) mg/dL Est GFR (CKD-EPI)AfAm (>60 ml/min/1.73 sqM) Est GFR (CKD-EPI)NonAf (>60 ml/min/1.73 sqM) Glucose (74-99) mg/dL POC Glucose (mg/dL) (75-99) mg/dL POC Glu Waste Disposal Attendant ID Plasma Lactic Acid [place] 1.3 (0.7-2.0) mmol/L Calcium (8.4-10.2) mg/dL Total Bilirubin (0.2-1.3) mg/dL AST (17-59) U/L ALT (4-49) U/L Alkaline Phosphatase (38-126) U/L Ammonia 10 (<30) umol/L Troponin I 0.019 (0.000-0.034) ng/mL NT-Pro-B Natriuret Pep 4520 pg/mL Total Protein (6.3-8.2) g/dL Albumin (3.5-5.0) g/dL Urine Color Urine Appearance (Clear) Urine pH (5.0-8.0) Ur Specific [place] (1.001-1.035) Urine Protein (Negative) Urine Glucose (UA) (Negative) Urine Ketones (Negative) Urine Blood (Negative) Urine Nitrite (Negative) Urine Bilirubin (Negative) Urine Urobilinogen (<2.0) mg/dL Ur Leukocyte Esterase (Negative) Urine RBC (0-5) /hpf Urine WBC (0-5) /hpf Urine WBC Clumps (None) /hpf Urine Bacteria (None) /hpf Hyaline Casts (0-2) /lpf Urine Mucus (None) /hpf Urine Opiates Screen (NotDetected) Ur Oxycodone Screen (NotDetected) Urine Methadone Screen (NotDetected) Ur Propoxyphene Screen (NotDetected) Ur Barbiturates Screen (NotDetected) U Tricyclic Antidepress (NotDetected) Ur Phencyclidine Scrn (NotDetected) Ur Amphetamines Screen (NotDetected) U Methamphetamines Scrn (NotDetected) U Benzodiazepines Scrn (NotDetected) Urine Cocaine Screen (NotDetected) U Marijuana (THC) Screen (NotDetected) Serum Alcohol mg/dL Coronavirus (PCR) (Not Detectd) 07/17/21 Range/Units 02:24 WBC (3.8-10.6) k/uL RBC (4.30-5.90) m/uL Hgb (13.0-17.5) gm/dL Hct (39.0-53.0) % MCV (80.0-100.0) fL MCH (25.0-35.0) pg MCHC (31.0-37.0) g/dL RDW (11.5-15.5) % Plt Count (150-450) k/uL MPV Neutrophils % % Lymphocytes % % Monocytes % % Eosinophils % % Basophils % % Neutrophils # (1.3-7.7) k/uL Lymphocytes # (1.0-4.8) k/uL Monocytes # (0-1.0) k/uL Eosinophils # (0-0.7) k/uL Basophils # (0-0.2) k/uL Hypochromasia Poikilocytosis Anisocytosis Macrocytosis PT (9.0-12.0) sec INR (<1.2) APTT (22.0-30.0) sec Sodium (137-145) mmol/L Potassium (3.5-5.1) mmol/L Chloride (98-107) mmol/L Carbon Dioxide (22-30) mmol/L Anion Gap mmol/L BUN (9-20) mg/dL Creatinine (0.66-1.25) mg/dL Est GFR (CKD-EPI)AfAm (>60 ml/min/1.73 sqM) Est GFR (CKD-EPI)NonAf (>60 ml/min/1.73 sqM) Glucose (74-99) mg/dL POC Glucose (mg/dL) (75-99) mg/dL POC Glu Waste Disposal Attendant ID Plasma Lactic Acid [place] (0.7-2.0) mmol/L Calcium (8.4-10.2) mg/dL Total Bilirubin (0.2-1.3) mg/dL AST (17-59) U/L ALT (4-49) U/L Alkaline Phosphatase (38-126) U/L Ammonia (<30) umol/L Troponin I (0.000-0.034) ng/mL NT-Pro-B Natriuret Pep pg/mL Total Protein (6.3-8.2) g/dL Albumin (3.5-5.0) g/dL Urine Color Urine Appearance (Clear) Urine pH (5.0-8.0) Ur Specific [place] (1.001-1.035) Urine Protein (Negative) Urine Glucose (UA) (Negative) Urine Ketones (Negative) Urine Blood (Negative) Urine Nitrite (Negative) Urine Bilirubin (Negative) Urine Urobilinogen (<2.0) mg/dL Ur Leukocyte Esterase (Negative) Urine RBC (0-5) /hpf Urine WBC (0-5) /hpf Urine WBC Clumps (None) /hpf Urine Bacteria (None) /hpf Hyaline Casts (0-2) /lpf Urine Mucus (None) /hpf Urine Opiates Screen (NotDetected) Ur Oxycodone Screen (NotDetected) Urine Methadone Screen (NotDetected) Ur Propoxyphene Screen (NotDetected) Ur Barbiturates Screen (NotDetected) U Tricyclic Antidepress (NotDetected) Ur Phencyclidine Scrn (NotDetected) Ur Amphetamines Screen (NotDetected) U Methamphetamines Scrn (NotDetected) U Benzodiazepines Scrn (NotDetected) Urine Cocaine Screen (NotDetected) U Marijuana (THC) Screen (NotDetected) Serum Alcohol mg/dL Coronavirus (PCR) Not Detected (Not Detectd) - EKG Data -: EKG Interpreted by Me EKG Comments: 12-lead Electrocardiogram Interpretation Note EKG was reviewed and interpreted by myself. 12-lead ECG performed at 0210 is in terpreted by me as revealing atrial fibrillation rate controlled at a rate of 96 beats per minute. [place] is normal. NM interval is unobtainable, QRS duration is 161 ms, QTc is 433 ms.. There were no ST or T wave abnormalities to suggest myocardial ischemia or injury. R wave progression across the precordium was satisfactory. By my interpretation this EKG is non-diagnostic for acute ischemia. Unchanged from prior EKGs. Disposition Clinical Impression: COPD exacerbation, CHF (congestive heart failure), Hypoxia, UTI (urinary tract infection), AMS (altered mental status), ANEL (acute kidney injury) Disposition: ADMITTED IP TO THIS HOSP Condition: Stable
[2021-07-17] MEDS: IPRATROPIUM-ALBUTEROL 3 ML NEB INHALATION SCH ×5 (04:34→19:43)
[2021-07-17] MEDS: AZITHROMYCIN 500 MG in SODIUM CHLORIDE 0.9% 250 ML IVPB SCH (04:35)
[2021-07-17] MEDS: MIDODRINE 5 MG TAB PO SCH ×3 (08:42→17:40)
[2021-07-17] MEDS: PANTOPRAZOLE 40 MG TABLET PO SCH ×2 (08:42→17:40)
[2021-07-17] MEDS: METOPROLOL TARTRATE 12.5 MG TAB PO SCH ×2 (08:42→20:53)
[2021-07-17] MEDS: DILTIAZEM CD 120 MG CAP.ER.24H PO SCH (08:42)
[2021-07-17] MEDS: methylPREDNISolone SOD SUCCI 40 MG/ML 1 ML VIAL IV SCH ×3 (08:42→20:53)
[2021-07-17] MEDS ORDERED: AZITHROMYCIN 500 MG in SODIUM CHLORIDE 0.9% 250 ML IVPB SCH (09:00)
--- NOTE | 2021-07-17 10:19 | P.HPIM ---
History of Present Illness H&P Date: 07/17/21 HISTORY OF PRESENT ILLNESS This is a 61-year-old male patient of [facility] with past medical history of hypertension, chronic persistent atrial fibrillation not on anticoagulation due to GI bleed, alcohol abuse, COPD. Patient was recently hospitalized June 26February 10 and was discharged to home. During that hospital stay, patient was treated for metabolic encephalopathy secondary to alcohol intoxication along with hyponatremia and elevated ammonia levels, acute hypoxic respiratory failure secondary to aspiration pneumonia and acute diastolic heart failure, acute COPD exacerbation. Patient also developed a GI bleed and on EGD was found to have gastric ulcerations, duodenal ulcerations and was transfused a total of 4 units of packed RBCs. Patient was stabilized and initially adamant about not going to rehab but subsequently agreed after long discussions that it was not felt he was safe to go home due to generalized weakness. Unfortunately after multiple attempts were made for subacute rehab, patient was denied and patient was discharged home with oxygen therapy at 3 L nasal cannula. Zaragoza catheter was removed prior to discharge per patient's request as he did not want to have it at home and he also stated at that time that he would not be following up with a physician. Now patient presents to the emergency center for mental status [place]. Patient has now back to his baseline mentation. He is adamant that he did not use any marijuana and no benzodiazepines after he left the hospital. He does not agree with the urine drug screen that is stating he has both benzodiazepines and marijuana present. Patient states that he was sick to his stomach and couldn't breathe even with his oxygen. Pulse ox is documented as 100% with oxygen by his nurse states that she walked in and found him pulse oxing 60 to 70s with oxygen. Blood pressure which is normally on the low side who has been higher currently 127/95 but fluctuating. WBC 5.4, hemoglobin 8.3, platelet count 196. INR 0.8. Sodium 136, potassium 4.7, chloride 90, CO2 32, BUN 34 creatinine 1.46. Blood sugar 108. Liver function tests were normal. Urinalysis clear, leukoesterase moderate, WBCs 12, WBC clumps rare, bacteria many. Chest X-ray reveals bilateral lower lobe pneumonia and atelectasis. Small right pleural effusion. Lung disease increased compared to last exam. No heart failure. CAT scan of the brain revealed cerebral atrophy. White matter hypodensity p robably related to chronic small vessel ischemia which is not changed. No evidence of cortical infarct. Patient is seen today in the emergency center waiting for a bed on the [facility] floor, started on IV Lasix, home medications, IV Solu-Medrol. PT OT and social work consults in place. REVIEW OF SYSTEMS Constitutional: No fever, no chills, no night sweats. No weight change. No weakness, fatigue or lethargy. No daytime sleepiness. EENT: No headache. No blurred vision or double vision, no loss of vision. No loss of Hearing, no ringing in the ears, no dizziness. No nasal drainage or congestion. No epistaxis. No sore throat. Lungs: Reports shortness of breath, cough, no sputum production. No wheezing. Cardiovascular: No chest pain, no lower extremity edema. No palpitations. No paroxysmal nocturnal dyspnea. No orthopnea. No lightheadedness or dizziness. No syncopal episodes. Abdominal: No abdominal pain. No nausea, vomiting. No diarrhea. No consti pation. No bloody or tarry stools. No loss of appetite. Genitourinary: No dysuria, increased frequency, urgency. No urinary retention. Musculoskeletal: No myalgias. Reports muscle weakness, Reports gait dysfunction, no frequent falls. No back pain. No neck pain. Integumentary: No wounds, no lesions. No rash or pruritus. No unusual bruising. No change in hair or nails. Neurologic: No aphasia. No facial droop. Reported change in mentation-back to baseline. No head injury. No headache. No paralysis. No paresthesia. Psychiatric: No depression. No anxiety. No mood swings. Endocrine: No abnormal blood sugars. No weight change. No excessive sweating or thirst. No cold intolerance. SOCIAL HISTORY Patient is a smoker one pack per day for 7 years. He drinks a pint of alcohol per day since he was a teenager. He uses marijuana on a regular basis. He denies any other drug use. FAMILY HISTORY Mother at age 54 from a myocardial infarction. Father also at age 54 from myocardial infarction. Patient does not have any brothers. He has one sister that is past due to heart failure. Patient has one son and one daughter with no major medical problems. PHYSICAL EXAMINATION Gen: This is a 61-year-old male. He is sitting in a chair next to the ER stretcher and appears to be comfortable and in no acute distress. Patient is currently on O2 at 5 L nasal cannula HEENT: Head is atraumatic, normocephalic. Pupils equal, round. Sclerae is anicteric. NECK: Supple. No JVD. No lymphadenopathy. No thyromegaly. LUNGS: Diminished with scattered expiratory wheeze. No intercostal retractions. HEART: Regular rate and rhythm. No murmur. ABDOMEN: Soft. Bowel sounds are present. No masses. No tenderness. EXTREMITIES: No pedal edema. No calf tenderness. NEUROLOGICAL: Patient is awake, alert and oriented x3. Cranial nerves 2 through 12 are grossly intact. ASSESSMENT AND PLAN 1. Metabolic encephalopathy of unclear etiology. CAT scan of the brain is negative for acute findings. 2. Acute on chronic hypoxic and hypercapnic respiratory failure secondary to pneumonia. Continue oxygen therapy. Patient started on ceftriaxone and azithromycin, DuoNeb treatments every 4 hours and as needed. Patient was previously treated for aspiration pneumonia, most likely residual. 3. COPD with exacerbation. Patient has been started on IV Solu-Medrol 4. Chronic blood loss anemia with history of gastric ulcerations and duodenal ulcerations. Patient recently had acute GI bleed with acute blood loss anemia status post transfusion of 4 units packed RBCs. Monitor for bleeding. Continue Protonix 40 mg twice daily and Carafate 1 g 3 times daily. 5. Possible catheter associated urinary tract infection. Continue ceftriaxone, urine culture. 6. Acute kidney injury and chronic kidney disease stage III. 7. Persistent atrial fibrillation. Continue Lopressor 12.5 mg twice daily and Cardizem CD 120 mg daily. Patient is not on anticoagulation due to history of GI bleed. 8. Recurrent depression and generalized anxiety disorder. Continue Remeron 15 mg at bedtime 9. Chronic hypotension. Patient is on midodrine 5 mg 3 times daily, hold for systolic blood pressure greater than 120. 10. DVT prophylaxis. SCDs and LAURA hose. 11. Urinary retention. Flomax 0.4 mg daily, bladder scan. 12. COVID-19 testing negative. Patient has been hospitalized during a pandemic. Patient will be admitted to the hospital for a minimum of 2 night stay. DISCHARGE PLAN To be determined. Consults with PT, OT, director social. Impression and plan of care have been directed as dictated by the signing physician. Leticia Sweet nurse practitioner acting as scribe for signing physician. Past Medical History Past Medical History: Atrial Fibrillation, COPD, Hypertension History of Any Multi-Drug Resistant Organisms: None Reported Past Surgical History: No Surgical Hx Reported Past Anesthesia/Blood Transfusion Reactions: No Reported Reaction Past Psychological History: Depression Smoking Status: Current every day smoker Past Alcohol Use History: Abuse, Daily, Heavy Past Drug Use History: Marijuana Medications and Allergies Home Medications Medication Instructions Recorded Confirmed Type Acetaminophen Tab [Tylenol] 650 mg PO Q6HR PRN tab 07/13/21 07/17/21 Rx Metoprolol Tartrate [Lopressor] 12.5 mg PO BID #60 tab 07/13/21 07/17/21 Rx Midodrine [ProAmatine] 5 mg PO AC-TID #90 tab 07/13/21 07/17/21 Rx Mirtazapine [Remeron] 15 mg PO HS #30 tab 07/13/21 07/17/21 Rx Nicotine 21Mg/24Hr Patch [Habitrol] 1 patch TRANSDERM DAILY #30 patch 07/13/21 07/17/21 Rx Pantoprazole [Protonix] 40 mg PO BID #60 tab 07/13/21 07/17/21 Rx Sertraline [Zoloft] 100 mg PO DAILY #30 tab 07/13/21 07/17/21 Rx Sucralfate [Carafate] 1 gm PO AC-TID #90 tab 07/13/21 07/17/21 Rx Baclofen [Lioresal] 10 mg PO BID #60 tablet 07/15/21 07/17/21 Rx Diltiazem Cd [Cardizem CD] 120 mg PO DAILY #30 cap 07/16/21 07/17/21 Rx Allergies Allergy/AdvReac Type Severity Reaction Status Date / Time No Known Allergies Allergy Verified 07/17/21 07:31 Physical Exam Vitals: Vital Signs Pulse Resp BP BP Pulse Ox 07/17/21 08:00 22 127/95 93 L 07/17/21 07:45 94 07/17/21 07:27 90 07/17/21 06:00 99/56 07/17/21 05:30 85 14 112/63 07/17/21 05:00 83 19 118/72 07/17/21 04:30 93 17 110/78 07/17/21 04:00 84 17 127/89 07/17/21 03:40 95 23 145/69 100 07/17/21 03:22 91 07/17/21 03:20 98 21 134/76 100 07/17/21 03:15 111 H 07/17/21 02:26 100 22 129/96 100 07/17/21 02:05 102 H 32 H 122/74 100 Intake and Output 07/16/21 07/17/21 07/17/21 22:59 06:59 14:59 Other: Weight 113.398 kg Results CBC & Chem 7: 07/17/21 02:20 07/17/21 02:20 Labs: Abnormal Lab Results - Last 24 Hours (Table) 07/17/21 07/17/21 07/17/21 Range/Units 02:06 02:17 02:17 RBC (4.30-5.90) m/uL Hgb (13.0-17.5) gm/dL Hct (39.0-53.0) % MCV (80.0-100.0) fL MCHC (31.0-37.0) g/dL RDW (11.5-15.5) % Lymphocytes # (1.0-4.8) k/uL Sodium (137-145) mmol/L Carbon Dioxide (22-30) mmol/L BUN (9-20) mg/dL Creatinine (0.66-1.25) mg/dL Glucose (74-99) mg/dL POC Glucose (mg/dL) 110 H (75-99) mg/dL Total Protein (6.3-8.2) g/dL Albumin (3.5-5.0) g/dL Urine Protein 1+ H (Negative) Urine Blood Trace H (Negative) Ur Leukocyte Esterase Moderate H (Negative) Urine WBC 12 H (0-5) /hpf Urine WBC Clumps Rare H (None) /hpf Urine Bacteria Many H (None) /hpf Hyaline Casts 11 H (0-2) /lpf Urine Mucus Rare H (None) /hpf U Benzodiazepines Scrn Detected H (NotDetected) U Marijuana (THC) Screen Detected H (NotDetected) 07/17/21 07/17/21 Range/Units 02:20 02:20 RBC 2.71 L (4.30-5.90) m/uL Hgb 8.3 L (13.0-17.5) gm/dL Hct 28.2 L (39.0-53.0) % MCV 103.8 H (80.0-100.0) fL MCHC 29.3 L (31.0-37.0) g/dL RDW 18.2 H (11.5-15.5) % Lymphocytes # 0.8 L (1.0-4.8) k/uL Sodium 136 L (137-145) mmol/L Carbon Dioxide 32 H (22-30) mmol/L BUN 34 H (9-20) mg/dL Creatinine 1.46 H (0.66-1.25) mg/dL Glucose 108 H (74-99) mg/dL POC Glucose (mg/dL) (75-99) mg/dL Total Protein 6.1 L (6.3-8.2) g/dL Albumin 3.2 L (3.5-5.0) g/dL Urine Protein (Negative) Urine Blood (Negative) Ur Leukocyte Esterase (Negative) Urine WBC (0-5) /hpf Urine WBC Clumps (None) /hpf Urine Bacteria (None) /hpf Hyaline Casts (0-2) /lpf Urine Mucus (None) /hpf U Benzodiazepines Scrn (NotDetected) U Marijuana (THC) Screen (NotDetected)
[2021-07-17] MEDS: NICOTINE 21MG/24HR PATCH TRANSDERM SCH (10:31)
[2021-07-17 10:35] LABS: VBG PH 7.27 (7.31-7.41)
[2021-07-17] MEDS: SERTRALINE 100 MG TAB PO SCH (11:47)
[2021-07-17] MEDS: SUCRALFATE 1 GM TAB PO SCH ×2 (11:47→17:40)
[2021-07-17] MEDS: TAMSULOSIN 0.4 MG CAP.ER.24H PO SCH (17:40)
[2021-07-17] MEDS ORDERED: IPRATROPIUM-ALBUTEROL 3 ML NEB INHALATION PRN (20:01)
[2021-07-17] MEDS: MIRTAZAPINE 15 MG TAB PO SCH (20:53)
[2021-07-17] MEDS ORDERED: FUROSEMIDE 10 MG/ML 4 ML VIAL IV SCH (21:00)
[2021-07-18] MEDS: ACETAMINOPHEN TAB 325 MG TAB PO PRN ×2 (01:54→21:36)
[2021-07-18] MEDS: methylPREDNISolone SOD SUCCI 40 MG/ML 1 ML VIAL IV SCH ×4 (03:37→21:33)
[2021-07-18] MEDS: AZITHROMYCIN 500 MG in SODIUM CHLORIDE 0.9% 250 ML IVPB SCH (04:36)
[2021-07-18 08:13] LABS: Glucose,Whole Blood 166 mg/dL (75-99)
[2021-07-18] MEDS: IPRATROPIUM-ALBUTEROL 3 ML NEB INHALATION SCH ×4 (08:25→20:49)
[2021-07-18] MEDS: MIDODRINE 5 MG TAB PO SCH ×3 (09:22→18:03)
[2021-07-18] MEDS: METOPROLOL TARTRATE 12.5 MG TAB PO SCH ×2 (09:22→21:33)
[2021-07-18] MEDS: SERTRALINE 100 MG TAB PO SCH (09:22)
[2021-07-18] MEDS: PANTOPRAZOLE 40 MG TABLET PO SCH ×2 (09:22→18:02)
[2021-07-18] MEDS: SUCRALFATE 1 GM TAB PO SCH ×3 (09:22→18:03)
[2021-07-18] MEDS: INSULIN ASPART (NovoLOG) 100 UNIT/ML VIAL SQ SCH ×4 (09:22→21:33)
[2021-07-18] MEDS: DILTIAZEM CD 120 MG CAP.ER.24H PO SCH (09:22)
[2021-07-18] MEDS: NICOTINE 21MG/24HR PATCH TRANSDERM SCH (09:23)
--- NOTE | 2021-07-18 09:55 | P.PN ---
Subjective Progress Note Date: 07/18/21 HISTORY OF PRESENT ILLNESS This is a 61-year-old male patient of [facility] with past medical history of hypertension, chronic persistent atrial fibrillation not on anticoagulation due to GI bleed, alcohol abuse, COPD. Patient was recently hospitalized June 26February 10 and was discharged to home. During that hospital stay, patient was treated for metabolic encephalopathy secondary to alcohol intoxication along with hyponatremia and elevated ammonia levels, acute hypoxic respiratory failure secondary to aspiration pneumonia and acute diastolic heart failure, acute COPD exacerbation. Patient also developed a GI bleed and on EGD was found to have gastric ulcerations, duodenal ulcerations and was transfused a total of 4 units of packed RBCs. Patient was stabilized and initially adamant about not going to rehab but subsequently agreed after long discussions that it was not felt he was safe to go home due to generalized weakness. Unfortunately after multiple attempts were made for subacute rehab, patient was denied and patient was discharged home with oxygen therapy at 3 L nasal cannula. Zaragoza catheter was removed prior to discharge per patient's request as he did not want to have it at home and he also stated at that time that he would not be following up with a physician. Now patient presents to the emergency center for mental status changes. Patient has now back to his baseline mentation. He is adamant that he did not use any marijuana and no benzodiazepines after he left the hospital. He does not agree with the urine drug screen that is stating he has both benzodiazepines and marijuana present. Patient states that he was sick to his s tomach and couldn't breathe even with his oxygen. Pulse ox is documented as 100% with oxygen by his nurse states that she walked in and found him pulse oxing 60 to 70s with oxygen. Blood pressure which is normally on the low side who has been higher currently 127/95 but fluctuating. WBC 5.4, hemoglobin 8.3, platelet count 196. INR 0.8. Sodium 136, potassium 4.7, chloride 90, CO2 32, BUN 34 creatinine 1.46. Blood sugar 108. Liver function tests were normal. Urinalysis clear, leukoesterase moderate, WBCs 12, WBC clumps rare, bacteria many. Chest X-ray reveals bilateral lower lobe pneumonia and atelectasis. Small right pleural effusion. Lung disease increased compared to last exam. No heart failure. CAT scan of the brain revealed cerebral atrophy. White matter hypodensity probably related to chronic small vessel ischemia which is not changed. No evidence of cortical infarct. Patient is seen today in the emergency center waiting for a bed on the [facility] floor, started on IV Lasix, home medications, IV Solu-Medrol. PT OT and social work consults in place. 07/18: Patient is found resting comfortably in bed. He currently has an indwelling catheter in place due to urinary retention. He was started on Flomax yesterday. His bladder scan showed 500 mL of urine. We will plan to remove the indwelling catheter either later today or tomorrow. Patient is encouraged to continue to get up in the chair multiple times during the day. Continue to work with PT OT. Patient denies any shortness of breath or chest pain. He is complaining of weakness. Patient remains afebrile, heart rate 98, blood pressure 104/65 pulse ox 100% on 3 L of nasal cannula. REVIEW OF SYSTEMS Constitutional: No fever, no chills, no night sweats. No weight change. No we akness, fatigue or lethargy. No daytime sleepiness. EENT: No headache. No blurred vision or double vision, no loss of vision. No loss of Hearing, no ringing in the ears, no dizziness. No nasal drainage or congestion. No epistaxis. No sore throat. Lungs: Reports shortness of breath, cough, no sputum production. No wheezing. Cardiovascular: No chest pain, no lower extremity edema. No palpitations. No paroxysmal nocturnal dyspnea. No orthopnea. No lightheadedness or dizziness. No syncopal episodes. Abdominal: No abdominal pain. No nausea, vomiting. No diarrhea. No constipation. No bloody or tarry stools. No loss of appetite. Genitourinary: No dysuria, increased frequency, urgency. No urinary retention. Musculoskeletal: No myalgias. Reports muscle weakness, Reports gait dysf unction, no frequent falls. No back pain. No neck pain. Integumentary: No wounds, no lesions. No rash or pruritus. No unusual bruising. No change in hair or nails. Neurologic: No aphasia. No facial droop. Reported change in mentation-back to baseline. No head injury. No headache. No paralysis. No paresthesia. Psychiatric: No depression. No anxiety. No mood swings. Endocrine: No abnormal blood sugars. No weight change. No excessive sweating or thirst. No cold intolerance. PHYSICAL EXAMINATION Gen: This is a 61-year-old male. He is sitting in a chair next to the ER stretcher and appears to be comfortable and in no acute distress. Patient is currently on O2 at 5 L nasal cannula HEENT: Head is atraumatic, normocephalic. Pupils equal, round. Sclerae is anicteric. NECK: Supple. No JVD. No lymphadenopathy. No thyromegaly. LUNGS: Diminished with scattered expiratory wheeze. No intercostal retractions. HEART: Regular rate and rhythm. No murmur. ABDOMEN: Soft. Bowel sounds are present. No masses. No tenderness. EXTREMITIES: No pedal edema. No calf tenderness. NEUROLOGICAL: Patient is awake, alert and oriented x3. Cranial nerves 2 through 12 are grossly intact. ASSESSMENT AND PLAN 1. Metabolic encephalopathy of unclear etiology. CAT scan of the brain is negative for acute findings. 2. Acute on chronic hypoxic and hypercapnic respiratory failure secondary to pneumonia. Continue oxygen therapy. Patient started on ceftriaxone and azithromycin, DuoNeb treatments every 4 hours and as needed. Patient was previously treated for aspiration pneumonia, most likely residual. 3. COPD with exacerbation. Patient has been started on IV Solu-Medrol 4. Chronic blood loss anemia with history of gastric ulcerations and duodenal ulcerations. Patient recently had acute GI bleed with acute blood loss anemia status post transfusion of 4 units packed RBCs. Monitor for bleeding. Continue Protonix 40 mg twice daily and Carafate 1 g 3 times daily. 5. Possible catheter associated urinary tract infection. Continue ceftriaxone, urine culture. 6. Acute kidney injury and chronic kidney disease stage III. 7. Persistent atrial fibrillation. Continue Lopressor 12.5 mg twice daily and Cardizem CD 120 mg daily. Patient is not on anticoagulation due to history of GI bleed. 8. Recurrent depression and generalized anxiety disorder. Continue Remeron 15 mg at bedtime 9. Chronic hypotension. Patient is on midodrine 5 mg 3 times daily, hold for systolic blood pressure greater than 120. 10. DVT prophylaxis. SCDs and LAURA hose. 11. Urinary retention. Flomax 0.4 mg daily, bladder scan 500ml, IDC inserted - plan to review today or tomorrow 12. COVID-19 testing negative. Patient has been hospitalized during a pandemic. Patient will be admitted to the hospital for a minimum of 2 night stay. DISCHARGE PLAN To be determined. Consults with PT, OT, social services technician. Impression and plan of care have been directed as dictated by the signing physician. Tierney Leggett nurse practitioner acting as scribe for signing physician. Objective - Vital Signs Vital signs: Vital Signs Temp 97.9 F 07/18/21 04:01 Pulse 98 07/18/21 08:37 Resp 18 07/18/21 04:01 BP 104/65 07/18/21 04:01 Pulse Ox 100 07/18/21 08:27 Intake & Output 07/17/21 07/18/21 07/18/21 18:59 06:59 18:59 Intake Total 240 300 Output Total 225 930 Balance 15 -630 Weight 113.398 kg Intake: Intake, IV Titration 300 Amount Azithromycin 500 mg In 250 Sodium Chloride 0.9% 250 ml @ 250 mls/hr IVPB Q24H [facility] Rx#:[id number] cefTRIAXone 1 gm In 50 Sodium Chloride 0.9% 50 ml @ 100 mls/hr IVPB Q24H [facility] Rx#:[id number] Oral 240 Output: Urine 225 800 Post Void Residual 130 Other: # Voids 1 - Labs CBC & Chem 7: 07/17/21 02:20 07/17/21 02:20 Labs: Abnormal Lab Results - Last 24 Hours (Table) 07/17/21 07/18/21 Range/Units 10:26 08:11 VBG pH 7.27 L (7.31-7.41) VBG pCO2 72 H* (37-51) mmHg VBG HCO3 32 H (24-28) mmol/L POC Glucose (mg/dL) 166 H (75-99) mg/dL Microbiology - Last 24 Hours (Table) 07/17/21 02:20 Blood Culture - Preliminary Blood No Growth after 24 hours 07/17/21 02:05 Blood Culture - Preliminary Blood No Growth after 24 hours 07/17/21 02:17 Urine Culture - Preliminary Urine,Voided
[2021-07-18 11:58] LABS: Glucose,Whole Blood 163 mg/dL (75-99)
[2021-07-18 17:24] LABS: Glucose,Whole Blood 140 mg/dL (75-99)
[2021-07-18] MEDS: TAMSULOSIN 0.4 MG CAP.ER.24H PO SCH (18:02)
[2021-07-18 20:06] LABS: Glucose,Whole Blood 214 mg/dL (75-99)
[2021-07-18] MEDS: MIRTAZAPINE 15 MG TAB PO SCH (21:33)
[2021-07-19] MEDS: methylPREDNISolone SOD SUCCI 40 MG/ML 1 ML VIAL IV SCH ×2 (03:26→08:26)
[2021-07-19 07:17] LABS: Glucose,Whole Blood 135 mg/dL (75-99)
[2021-07-19] MEDS: IPRATROPIUM-ALBUTEROL 3 ML NEB INHALATION SCH ×4 (07:23→19:13)
[2021-07-19] MEDS: AZITHROMYCIN 500 MG TAB PO SCH (08:24)
[2021-07-19] MEDS: SUCRALFATE 1 GM TAB PO SCH ×3 (08:25→18:37)
[2021-07-19] MEDS: SERTRALINE 100 MG TAB PO SCH (08:25)
[2021-07-19] MEDS: MIDODRINE 5 MG TAB PO SCH ×3 (08:25→17:57)
[2021-07-19] MEDS: DILTIAZEM CD 120 MG CAP.ER.24H PO SCH (08:25)
[2021-07-19] MEDS: METOPROLOL TARTRATE 12.5 MG TAB PO SCH ×2 (08:25→20:39)
[2021-07-19] MEDS: NICOTINE 21MG/24HR PATCH TRANSDERM SCH (08:25)
[2021-07-19] MEDS: PANTOPRAZOLE 40 MG TABLET PO SCH ×2 (08:25→18:37)
[2021-07-19] MEDS: INSULIN ASPART (NovoLOG) 100 UNIT/ML VIAL SQ SCH ×4 (08:26→20:41)
--- NOTE | 2021-07-19 09:47 | P.PN ---
Subjective Progress Note Date: 07/19/21 HISTORY OF PRESENT ILLNESS This is a 61-year-old male patient of [facility] with past medical history of hypertension, chronic persistent atrial fibrillation not on anticoagulation due to GI bleed, alcohol abuse, COPD. Patient was recently hospitalized June 26February 10 and was discharged to home. During that hospital stay, patient was treated for metabolic encephalopathy secondary to alcohol intoxication along with hyponatremia and elevated ammonia levels, acute hypoxic respiratory failure secondary to aspiration pneumonia and acute diastolic heart failure, acute COPD exacerbation. Patient also developed a GI bleed and on EGD was found to have gastric ulcerations, duodenal ulcerations and was transfused a total of 4 units of packed RBCs. Patient was stabilized and initially adamant about not going to rehab but subsequently agreed after long discussions that it was not felt he was safe to go home due to generalized weakness. Unfortunately after multiple attempts were made for subacute rehab, patient was denied and patient was discharged home with oxygen therapy at 3 L nasal cannula. Zaragoza catheter was removed prior to discharge per patient's request as he did not want to have it at home and he also stated at that time that he would not be following up with a physician. Now patient presents to the emergency center for mental status changes. Patient has now back to his baseline mentation. He is adamant that he did not use any marijuana and no benzodiazepines after he left the hospital. He does not agree with the urine drug screen that is stating he has both benzodiazepines and marijuana present. Patient states that he was sick to his s tomach and couldn't breathe even with his oxygen. Pulse ox is documented as 100% with oxygen by his nurse states that she walked in and found him pulse oxing 60 to 70s with oxygen. Blood pressure which is normally on the low side who has been higher currently 127/95 but fluctuating. WBC 5.4, hemoglobin 8.3, platelet count 196. INR 0.8. Sodium 136, potassium 4.7, chloride 90, CO2 32, BUN 34 creatinine 1.46. Blood sugar 108. Liver function tests were normal. Urinalysis clear, leukoesterase moderate, WBCs 12, WBC clumps rare, bacteria many. Chest X-ray reveals bilateral lower lobe pneumonia and atelectasis. Small right pleural effusion. Lung disease increased compared to last exam. No heart failure. CAT scan of the brain revealed cerebral atrophy. White matter hypodensity probably related to chronic small vessel ischemia which is not changed. No evidence of cortical infarct. Patient is seen today in the emergency center waiting for a bed on the [facility] floor, started on IV Lasix, home medications, IV Solu-Medrol. PT OT and social work consults in place. 07/18: Patient is found resting comfortably in bed. He currently has an indwelling catheter in place due to urinary retention. He was started on Flomax yesterday. His bladder scan showed 500 mL of urine. We will plan to remove the indwelling catheter either later today or tomorrow. Patient is encouraged to continue to get up in the chair multiple times during the day. Continue to work with PT OT. Patient denies any shortness of breath or chest pain. He is complaining of weakness. Patient remains afebrile, heart rate 98, blood pressure 104/65 pulse ox 100% on 3 L of nasal cannula. 07/19: Patient is found resting comfortably in bed. Patient states that yesterday he was up to the chair multiple times. Indwelling catheter is still in place due to urinary retention. The catheter will be removed today. Patient is encouraged to continue ambulating and being up in the chair for long periods of time. The plan is for patient to go home tomorrow. Patient denies any shortness of breath or chest pain at this time. States that the weakness has been improving. Patient remains afebrile, heart rate 109, respirations 18, blood pressure 138/89 pulse ox 99% on 2 L. REVIEW OF SYSTEMS Constitutional: No fever, no chills, no night sweats. No weight change. No weakness, fatigue or lethargy. No daytime sleepiness. EENT: No headache. No blurred vision or double vision, no loss of vision. No loss of Hearing, no ringing in the ears, no dizziness. No nasal drainage or congestion. No epistaxis. No sore throat. Lungs: Reports shortness of breath, cough, no sputum production. No wheezing. Cardiovascular: No chest pain, no lower extremity edema. No palpitations. No paroxysmal nocturnal dyspnea. No orthopnea. No lightheadedness or dizziness. No syncopal episodes. Abdominal: No abdominal pain. No nausea, vomiting. No diarrhea. No constipation. No bloody or tarry stools. No loss of appetite. Genitourinary: No dysuria, increased frequency, urgency. No urinary retention. Musculoskeletal: No myalgias. Reports muscle weakness, Reports gait dysfunction, no frequent falls. No back pain. No neck pain. Integumentary: No wounds, no lesions. No rash or pruritus. No unusual bruising. No change in hair or nails. Neurologic: No aphasia. No facial droop. Reported change in mentation-back to baseline. No head injury. No headache. No paralysis. No paresthesia. Psychiatric: No depression. No anxiety. No mood swings. Endocrine: No abnormal blood sugars. No weight change. No excessive sweating or thirst. No cold intolerance. PHYSICAL EXAMINATION Gen: This is a 61-year-old male. He is sitting up in bed and appears to be comfortable and in no acute distress. Patient is currently on O2 at 2 L nasal cannula HEENT: Head is atraumatic, normocephalic. Pupils equal, round. Sclerae is anicteric. NECK: Supple. No JVD. No lymphadenopathy. No thyromegaly. LUNGS: Diminished with scattered expiratory wheeze. No intercostal retractions. HEART: Regular rate and rhythm. No murmur. ABDOMEN: Soft. Bowel sounds are present. No masses. No tenderness. EXTREMITIES: No pedal edema. No calf tenderness. NEUROLOGICAL: Patient is awake, alert and oriented x3. Cranial nerves 2 through 12 are grossly intact. ASSESSMENT AND PLAN 1. Metabolic encephalopathy of unclear etiology. CAT scan of the brain is negative for acute findings. 2. Acute on chronic hypoxic and hypercapnic respiratory failure secondary to pneumonia. Continue oxygen therapy. Patient started on ceftriaxone and azithromycin, DuoNeb treatments every 4 hours and as needed. Patient was previously treated for aspiration pneumonia, most likely residual. 3. COPD with exacerbation. Patient has been started on IV Solu-Medrol 4. Chronic blood loss anemia with history of gastric ulcerations and duodenal ulcerations. Patient recently had acute GI bleed with acute blood loss anemia status post transfusion of 4 units packed RBCs. Monitor for bleeding. Continue Protonix 40 mg twice daily and Carafate 1 g 3 times daily. 5. Possible catheter associated urinary tract infection. Continue ceftriaxone, urine culture. 6. Acute kidney injury and chronic kidney disease stage III. 7. Persistent atrial fibrillation. Continue Lopressor 12.5 mg twice daily and Cardizem CD 120 mg daily. Patient is not on anticoagulation due to history of GI bleed. 8. Recurrent depression and generalized anxiety disorder. Continue Remeron 15 mg at bedtime 9. Chronic hypotension. Patient is on midodrine 5 mg 3 times daily, hold for systolic blood pressure greater than 120. 10. DVT prophylaxis. SCDs and LAURA hose. 11. Urinary retention. Flomax 0.4 mg daily, bladder scan 500ml, discontinue indwelling catheter today. 12. COVID-19 testing negative. Patient has been hospitalized during a pandemic. Patient will be admitted to the hospital for a minimum of 2 night stay. DISCHARGE PLAN To be determined. Consults with PT, OT, bilingual social worker. Impression and plan of care have been directed as dictated by the signing physician. Tierney Leggett nurse practitioner acting as scribe for signing physician. Objective - Vital Signs Vital signs: Vital Signs Temp 97.8 F 07/19/21 05:00 Pulse 109 H 07/19/21 08:29 Resp 16 07/19/21 05:00 BP 138/89 07/19/21 08:29 Pulse Ox 99 07/19/21 07:23 Intake & Output 07/18/21 07/19/21 07/19/21 18:59 06:59 18:59 Intake Total 540 50 240 Output Total 950 800 Balance -410 -750 240 Intake: Intake, IV Titration 50 Amount cefTRIAXone 1 gm In 50 Sodium Chloride 0.9% 50 ml @ 100 mls/hr IVPB Q24H [facility] Rx#:[id number] Oral 540 240 Output: Urine 950 800 Other: # Bowel Movements 1 - Labs CBC & Chem 7: 07/17/21 02:20 07/17/21 02:20 Labs: Abnormal Lab Results - Last 24 Hours (Table) 07/18/21 07/18/21 07/18/21 Range/Units 11:57 17:23 20:05 POC Glucose (mg/dL) 163 H 140 H 214 H (75-99) mg/dL 07/19/21 Range/Units 07:10 POC Glucose (mg/dL) 135 H (75-99) mg/dL Microbiology - Last 24 Hours (Table) 07/17/21 02:05 Blood Culture - Preliminary Blood No Growth after 48 hours 07/17/21 02:20 Blood Culture - Preliminary Blood No Growth after 48 hours 07/17/21 02:17 Urine Culture - Preliminary Urine,Voided Gram Neg Bacilli
[2021-07-19] MEDS: FUROSEMIDE 20 MG TAB PO SCH (12:48)
[2021-07-19] MEDS: SPIRONOLACTONE 25 MG TAB PO SCH (12:48)
[2021-07-19 12:49] LABS: Glucose,Whole Blood 170 mg/dL (75-99)
[2021-07-19] MEDS: predniSONE 10 MG TAB PO SCH (12:52)
[2021-07-19 17:43] LABS: Glucose,Whole Blood 143 mg/dL (75-99)
[2021-07-19] MEDS: TAMSULOSIN 0.4 MG CAP.ER.24H PO SCH (18:37)
[2021-07-19] MEDS: MIRTAZAPINE 15 MG TAB PO SCH (20:39)
[2021-07-19 20:50] LABS: Glucose,Whole Blood 162 mg/dL (75-99)
[2021-07-19 21:59] VITALS: RESP 20
[2021-07-20 05:17] VITALS: TEMP 97.9
[2021-07-20 07:23] LABS: Glucose,Whole Blood 125 mg/dL (75-99)
[2021-07-20] MEDS: IPRATROPIUM-ALBUTEROL 3 ML NEB INHALATION SCH ×2 (08:32→12:01)
[2021-07-20] MEDS: NICOTINE 21MG/24HR PATCH TRANSDERM SCH (08:33)
[2021-07-20] MEDS: METOPROLOL TARTRATE 12.5 MG TAB PO SCH (08:34)
[2021-07-20] MEDS: DILTIAZEM CD 120 MG CAP.ER.24H PO SCH (08:34)
[2021-07-20] MEDS: SUCRALFATE 1 GM TAB PO SCH (08:34)
[2021-07-20] MEDS: SPIRONOLACTONE 25 MG TAB PO SCH (08:34)
[2021-07-20] MEDS: MIDODRINE 5 MG TAB PO SCH (08:34)
[2021-07-20] MEDS: PANTOPRAZOLE 40 MG TABLET PO SCH (08:34)
[2021-07-20] MEDS: AZITHROMYCIN 500 MG TAB PO SCH (08:34)
[2021-07-20] MEDS: SERTRALINE 100 MG TAB PO SCH (08:34)
[2021-07-20] MEDS: predniSONE 10 MG TAB PO SCH (08:34)
[2021-07-20] MEDS: FUROSEMIDE 20 MG TAB PO SCH (08:35)
[2021-07-20] MEDS: INSULIN ASPART (NovoLOG) 100 UNIT/ML VIAL SQ SCH (08:35)
--- NOTE | 2021-07-20 10:59 | P.DS ---
Providers Date of admission: 07/17/21 08:47 Expected date of discharge: 07/20/21 Attending physician: Lashawn Melgar MD Primary care physician: [facility] Course: HISTORY OF PRESENT ILLNESS This is a 61-year-old male patient of [facility] with past medical history of hypertension, chronic persistent atrial fibrillation not on anticoagulation due to GI bleed, alcohol abuse, COPD. Patient was recently hospitalized June 26February 10 and was discharged to home. During that hospital stay, patient was treated for metabolic encephalopathy secondary to alcohol intoxication along with hyponatremia and elevated ammonia levels, acute hypoxic respiratory failure secondary to aspiration pneumonia and acute diastolic heart failure, acute COPD exacerbation. Patient also developed a GI bleed and on EGD was found to have gastric ulcerations, duodenal ulcerations and was transfused a total of 4 units of packed RBCs. Patient was stabilized and initially adamant about not going to rehab but subsequently agreed after long discussions that it was not felt he was safe to go home due to generalized weakness. Unfortunately after multiple attempts were made for subacute rehab, patient was denied and patient was discharged home with oxygen therapy at 3 L nasal cannula. Zaragoza catheter was removed prior to discharge per patient's request as he did not want to have it at home and he also stated at that time that he would not be following up with a physician. Now patient presents to the emergency center for mental status changes. Patient has now back to his baseline mentation. He is adamant that he did not use any marijuana and no benzodiazepines after he left the hospital. He does not agree with the urine drug screen that is stating he has both benzodiazepines and marijuana present. Patient states that he was sick to his stomach and couldn't breathe even with his oxygen. Pulse ox is documented as 100% with oxygen by his nurse states that she walked in and found him pulse oxing 60 to 70s with oxygen. Blood pressure which is normally on the low side who has been higher currently 127/95 but fluctuating. WBC 5.4, hemoglobin 8.3, platelet count 196. INR 0.8. Sodium 136, potassium 4.7, chloride 90, CO2 32, BUN 34 creatinine 1.46. Blood sugar 108. Liver function tests were normal. Urinalysis clear, leukoesterase moderate, WBCs 12, WBC clumps rare, bacteria many. Chest X-ray reveals bilateral lower lobe pneumonia and atelectasis. Small right pleural effusion. Lung disease increased compared to last exam. No heart failure. CAT scan of the brain revealed cerebral atrophy. White matter hypodensity probably related to chronic small vessel ischemia which is not changed. No evidence of cortical infarct. Patient is seen today in the emergency center waiting for a bed on the [facility] floor, started on IV Lasix, home medications, IV Solu-Medrol. PT OT and social work consults in place. 07/18: Patient is found resting comfortably in bed. He currently has an indwelling catheter in place due to urinary retention. He was started on Flomax yesterday. His bladder scan showed 500 mL of urine. We will plan to remove the indwelling catheter either later today or tomorrow. Patient is encouraged to continue to get up in the chair multiple times during the day. Continue to work with PT OT. Patient denies any shortness of breath or chest pain. He is comp laining of weakness. Patient remains afebrile, heart rate 98, blood pressure 104/65 pulse ox 100% on 3 L of nasal cannula. 07/19: Patient is found resting comfortably in bed. Patient states that yes terday he was up to the chair multiple times. Indwelling catheter is still in place due to urinary retention. The catheter will be removed today. Patient is encouraged to continue ambulating and being up in the chair for long periods of time. The plan is for patient to go home tomorrow. Patient denies any shortness of breath or chest pain at this time. States that the weakness has been improving. Patient remains afebrile, heart rate 109, respirations 18, blood pressure 138/89 pulse ox 99% on 2 L. 07/20: Patient is afebrile, heart rate 94, blood pressure 122/73, pulse ox 90% on 2 L. Blood sugars running between 125 and 170. Urine culture is positive for E. coli only resistance stent to ampicillin and Unasyn. Patient denies any new complaints. He does not have Zaragoza catheter in place. He will be rechecked for need for home oxygen therapy and pulse ox dropped to 82% with activity. marketing manager health communications is following for discharge needs and we'll make arrangements for home oxygen. Patient will be discharged home today in stable condition. DISCHARGE DIAGNOSES 1. Metabolic encephalopathy of unclear etiology. CAT scan of the brain is negative for acute findings. 2. Acute on chronic hypoxic and hypercapnic respiratory failure secondary to pneumonia. 3. COPD with exacerbation. 4. Chronic blood loss anemia with history of gastric ulcerations and duodenal ulcerations. 5. Possible catheter associated urinary tract infection. 6. Acute kidney injury and chronic kidney disease stage III. 7. Persistent atrial fibrillation. 8. Recurrent depression and generalized anxiety disorder. 9. Chronic hypotension. 10. Urinary retention. DISCHARGE PLAN Return home. Greater than 35 minutes was utilized and coordinating patient's discharge. Impression and plan of care have been directed as dictated by the signing physician. Leticia Sweet nurse practitioner acting as scribe for signing physician. Patient Condition at Discharge: Good Plan - Discharge Summary Discharge Rx Participant: Yes New Discharge Prescriptions: New Spironolactone [Aldactone] 25 mg PO DAILY #30 tab Tamsulosin [Flomax] 0.4 mg PO PC-SUPPER #30 predniSONE 30 mg PO DAILY #18 tab Furosemide [Lasix] 20 mg PO DAILY #30 tab Levofloxacin [Levaquin] 500 mg PO DAILY 5 Days #5 tab Continue Midodrine [ProAmatine] 5 mg PO AC-TID #90 tab Mirtazapine [Remeron] 15 mg PO HS #30 tab Baclofen [Lioresal] 10 mg PO BID #60 tablet Sucralfate [Carafate] 1 gm PO AC-TID #90 tab Nicotine 21Mg/24Hr Patch [Habitrol] 1 patch TRANSDERM DAILY #30 patch Metoprolol Tartrate [Lopressor] 12.5 mg PO BID #60 tab Pantoprazole [Protonix] 40 mg PO BID #60 tab Acetaminophen Tab [Tylenol] 650 mg PO Q6HR PRN tab PRN Reason: Fever And/ Or Pain Sertraline [Zoloft] 100 mg PO DAILY #30 tab Diltiazem Cd [Cardizem CD] 120 mg PO DAILY #30 cap Discharge Medication List Acetaminophen Tab [Tylenol] 650 mg PO Q6HR PRN tab 07/13/21 [Rx] Metoprolol Tartrate [Lopressor] 12.5 mg PO BID #60 tab 07/13/21 [Rx] Midodrine [ProAmatine] 5 mg PO AC-TID #90 tab 07/13/21 [Rx] Mirtazapine [Remeron] 15 mg PO HS #30 tab 07/13/21 [Rx] Nicotine 21Mg/24Hr Patch [Habitrol] 1 patch TRANSDERM DAILY #30 patch 07/13/21 [Rx] Pantoprazole [Protonix] 40 mg PO BID #60 tab 07/13/21 [Rx] Sertraline [Zoloft] 100 mg PO DAILY #30 tab 07/13/21 [Rx] Sucralfate [Carafate] 1 gm PO AC-TID #90 tab 07/13/21 [Rx] Baclofen [Lioresal] 10 mg PO BID #60 tablet 07/15/21 [Rx] Diltiazem Cd [Cardizem CD] 120 mg PO DAILY #30 cap 07/16/21 [Rx] Furosemide [Lasix] 20 mg PO DAILY #30 tab 07/20/21 [Rx] Levofloxacin [Levaquin] 500 mg PO DAILY 5 Days #5 tab 07/20/21 [Rx] Spironolactone [Aldactone] 25 mg PO DAILY #30 tab 07/20/21 [Rx] Tamsulosin [Flomax] 0.4 mg PO PC-SUPPER #30 07/20/21 [Rx] predniSONE 30 mg PO DAILY #18 tab 07/20/21 [Rx] Follow up Appointment(s)/Referral(s): Janey Wallace NPC [Primary Care Provider] - 1 Week Benitez Min MD [STAFF PHYSICIAN] - 1 Week Patient Instructions/Handouts: Urinary Tract Infection in Men (DC), COPD (Chronic Obstructive Pulmonary Disease) (DC) Activity/Diet/Wound Care/Special Instructions: exchange medical needs to be notified when pt is d/c. ex: [id number] - they need to do home o2 teaching, we will also need a home o2 retest please Discharge Disposition: HOME SELF-CARE
[2021-07-20 11:29] VITALS: BP 123/77
[2021-07-20 12:00] LABS: Glucose,Whole Blood 189 mg/dL (75-99)
[2021-07-20 12:19] VITALS: PULSE 102
== END 2021-07-20 14:46 | disposition home or self-care (01) | DRG 70 ==
LOC: EC 02:02 → 4SSUR 03:47 → OBSVTOIN 08:47 → 3SCARD 09:59 → 5NMEDONC 07-18 00:40
PROVIDERS: ADMIT Internal Medicine; ATTEND Internal Medicine
DX: G93.41 Metabolic encephalopathy (principal); J18.9 Pneumonia, unspecified organism; J96.22 Acute and chronic respiratory failure with hypercapnia; J96.21 Acute and chronic respiratory failure with hypoxia; N39.0 Urinary tract infection, site not specified; T83.511A Infection and inflammatory reaction due to indwelling urethral catheter, initial encounter; I13.0 Hypertensive heart and chronic kidney disease with heart failure and stage 1 through stage 4 chronic kidney disease, or unspecified chronic kidney disease; F33.9 Major depressive disorder, recurrent, unspecified; I48.19 Other persistent atrial fibrillation; J44.1 Chronic obstructive pulmonary disease with (acute) exacerbation; J44.0 Chronic obstructive pulmonary disease with (acute) lower respiratory infection; I50.30 Unspecified diastolic (congestive) heart failure; J98.11 Atelectasis; N17.9 Acute kidney failure, unspecified; Z16.11 Resistance to penicillins; B96.20 Unspecified Escherichia coli [E. coli] as the cause of diseases classified elsewhere; Z20.822 Contact with and (suspected) exposure to COVID-19; D53.9 Nutritional anemia, unspecified; I95.89 Other hypotension; F10.10 Alcohol abuse, uncomplicated; N18.30 Chronic kidney disease, stage 3 unspecified; D50.0 Iron deficiency anemia secondary to blood loss (chronic); F17.210 Nicotine dependence, cigarettes, uncomplicated; F41.1 Generalized anxiety disorder; Z87.11 Personal history of peptic ulcer disease; R33.9 Retention of urine, unspecified; Z87.01 Personal history of pneumonia (recurrent); Z79.899 Other long term (current) drug therapy; Z82.49 Family history of ischemic heart disease and other diseases of the circulatory system
CPT/HCPCS: 36415; 70450; 71045; 80053; 80306; 80320; 81001; 82140; 82803; 83605; 83880; 84484; 85025; 85610; 85730; 87040; 87077; 87086; 87186; 87635; 93005; 94640; 94760; 96374; 99285